=== PATIENT | female | born 1950 | race Caucasian/White ===

== ENCOUNTER 2017-03-12 10:54 | Observation (INO) | payer MEDICARE, MEDICAID ==
[~2017-03-12] VITALS: Ht 167.6 cm; Wt 71.3 kg
[~2017-03-12 10:54] MED LIST: ALBUTEROL 117 GM/INH IN; ALBUTEROL2 PUFFS/17 IN; AMLO5TAB PO; ATORVASTATIN CA20 M1 PO; AUGMENTIN 875-1 EACH PO; BIAXIN500 MG PO; CLARITIN10 MG PO; CLONAZEPAM0.5 M1 PO; CYMBALTA60 MG PO; DALIRESP500 MCG PO; DULERA1 AR1 IH; DULOXETINE 30MG30 MG PO; DUONEB 3 MG/3 ML3 ML IH; FUROSEMIDE 20MG20 MG PO; HYDROCODONE 7.51 TAB PO; HYDROCODONE1 TABLET PO; KLOR-CON M2020 ME1 PO; LEVAQUIN500 MG PO; LISINOPRIL 20MG20 MG PO; LOSARTAN POTASS50 MG PO; MEDROL 4MG. DOSE4 MG PO; NEURONTIN 100100 MG PO; NITROGLYCERIN0.4 MG SL; NOMEDS *; OMNICEF 300 MG300 MG PO; PREDNICOT20 MG PO; PREDNISONE 20MG20 MG PO; PROAIR HFA0.09 MG/AC IH; PROAIR HFA0.09 MG/AC INH; PROTONIX 40MG T40 MG PO; PROVENTIL0.09 MG/A1 IH; ROBITUSSIN DM240 ML PO; SERTRALINE 100100 MG PO; SIMVASTATIN20 MG PO; SINGULAIR10 MG PO; SPIRIVA HA1 PUFF/INH IH; SPIRIVA18 MCG IH; TEMAZEPAM15 MG PO; THEOPHYLLINE A300 MG PO; TRADJENTA5 MG PO; VISTARIL25 MG PO; ZITHROMAX Z PA250 MG PO
[2017-03-12 10:57] VITALS: BP 172/72
--- NOTE | 2017-03-12 11:07 | Emergency Room Report ---
History of Present Illness Time Seen by [id number] Presenting Problem in Triage Pt arrived:Wheelchair Presenting Problem:PT C/O INCREASED SOA THAT STARTED THIS MORNING. ALSO C/O OF SOME CHEST PAIN THAT HAS BEEN COMING AND GOING. 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 N Clinical Suspician of Infection? N Mental Status: 1 - Regular (Normal Baseline) Sepsis Risk:Severe Sepsis Risk Have you (or family members/close friends) recently traveled outside the [place]? N If Yes, where/when: Have you had exposure to infectious disease within the past month? N TB? Other? Specify: Patient with COPD, oxygen dependent, has been wheezing the last few days, worse this morning. Arrives wheezing and tachypneic. No fever or sputum, no calf pain. Has chest pain when wheezing. Seen in ED two days ago with similar complaints, was sent home with Rx for an HFA, which she is using. She states she is not currently on antibiotics but was on Cefdinir several months ago. She is diabetic , type two. She has been on dexamethasone since February 11, 2017. ALLERGIES Coded Allergies: No Known Allergies (10/01/16) Home Medications Active Scripts Albuterol/Ipratropiu (Duoneb) 3 ML IH Q4HP #30 VIAL Prov: 04/30/11 Tiotropium Henderson (Spiriva) 18 MCG IH DAILY #30 CAP Ref 3 Prov: 06/29/16 Reported Medications Linagliptin (Tradjenta) 5 MG PO DAILY #90 Furosemide (Furosemide) 20 MG PO DAILY DULOXETINE HCL (Cymbalta 60MG) 60 MG PO DAILY Losartan Potassium (Losartan 50MG) 50 MG PO DAILY #90 TAB Sertraline Hydrochloride (Sertraline 100MG) 100 MG PO DAILY Roflumilast (Daliresp) 500 MCG PO DAILY Pantoprazole Sodium (Protonix 40MG TAB) 40 MG PO BID MOMETASONE/FORMOTEROL (Dulera 200 Mcg/5 Mcg Inhaler) 2 PUFFS IH BID #13 BUDESONIDE/FORMOTEROL FUMARATE (Symbicort 160-4.5 Mcg Inhaler) 1 PUFF IH BID #10 Olanzapine (Olanzapine 5MG Tab) 5 MG PO QHS Dexamethasone 4 MG FT DAILY #3 Amitriptyline Hcl (Amitriptyline) 50 MG PO QHS History Medical History General CAD? No Angina: No HI: No Hypertension? Yes Hyperlipidemia? No CHF? No DVT? No PE? No COPD? Yes Asthma? Yes Anemia? No GERD? No Gastric ulcers? Yes GI Bleed? No Hernia? No Thyroid Problems? No Hypothyroidism? No CVA? No Seizures? No Diabetes? Yes Insulin Dependent: No Insulin Pump: No Home FSBS? No Renal Insuffiency? No End Stage Renal Disease? No UTI? No Stones? No GB Disease: No Nephritic Syndrome? No Asplenia? No Hepatitis? No Sickle Cell Disease? No Arthritis? Yes Migraines? No Cataracts? No Glaucoma? No MRSA? No HIV? 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 No Depression? No Cancer? Yes Site: lung More? 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 Immunization Hx DT/Tetanus Unknown Flu REFUSES Pneumonia Refuses Surgical Hx Previous Surgery?Y Hysterect GALL BLADDER Family History Family Hx Diabetes Yes CAD Yes Hypertension Yes Hyperlipidemia Yes Cancer Yes TB No Social History Smoking Hx Smoker: Former Smoker Tobacco: No Packs/day 2 1/2 - 3 Packs Alcohol Alcohol: No Review of Systems All Other Systems Reviewed and Negative Respiratory see HPI, wheezing Physical Exam Vital Signs Vital Signs Date Time Temp Pulse Resp B/P Pulse O2 O2 Flow FiO2 Ox Delivery Rate 03/12 1150 99 26 140/78 95 3 03/12 1115 3 03/12 1115 3 03/12 1115 96 OXYGEN 3 03/12 1115 96 OXYGEN 3 03/12 1057 98.3 120 30 172/72 88 General Appearance normal appearance, WD/WN, mild distress Eye Exam - bilateral eye normal exam, bilateral eye PERRL, bilateral eye EOMI Neck normal inspection, non-tender, supple, full range of motion Respiratory Status Yes: respiratory distress, trachea midline, chest symmetrical, non tender chest, use of accessory muscles, non productive cough. No: tender on palpation, pain on inspiration, pain on expiration, productive cough. Lung Sounds bilateral: decreased breath sounds, wheezing. Cardiovascular normal exam, regular rate/rhythm (tachycardia: res distress/neb), no peripheral edema, no gallop, no JVD, no murmur, no rub, normal peripheral pulses Peripheral Pulses Pulses normal Yes Gastrointestinal normal bowel sounds, normal exam, non tender, soft, no organomegaly, no pulsatile mass, no guarding, no rebound Extremities non-tender, normal range of motion, normal inspection, no calf tenderness, no pedal edema Strength 5 Upper Ext (L), 5 Upper Ext (R), 5 Lower Ext (L), 5 Lower Ext (R) Neurologic alert, normal exam, no motor/sensory deficits, oriented x 3 (speech clear) Glascow Coma Scale Glascow Coma Scale Response Value EYE response: 4 Spontaneously 4 MOTOR response: 6 OBEYS 6 VERBAL response: 5 Oriented & Converses 5 Total 15 Skin intact, warm/dry, pallor Medical Decision Making LABS/Meds/Orders Pt receiving controlled substance in ED? No Results/Orders Laboratory Tests 03/12/17 1150: ABG pH 7.40, ABG pCO2 (Temp Corrct 41.6, ABG pO2 (Temp Correct 94.0, ABG HCO3 25.0, ABG Total CO2 26.3, ABG O2 Sat (Calculated) 96.4, ABG Base Excess 0.2, Ernst Test ACCEPTABLE, Blood Gas Comments RIGHT RADIAL 03/12/17 1105: Lactic Acid 3.4 H 03/12/17 1105: Sodium 141, Potassium 3.8, Chloride 104, Carbon Dioxide 29, BUN 23 H, Creatinine 0.9, Estimated Creat Clear 73, Estimated GFR (MDRD) 62, Glucose 217 H, Calcium 9.5, Total Bilirubin 0.3, AST 10 L, ALT 19, Alkaline Phosphatase 90, Creatine Kinase 31, CK-MB (CK-2) Rel Index 2.3, CK and CKMB Interp 0.7, Troponin I < 0.02, Total Protein 7.8, Albumin 3.3 L, Globulin 4.5 H, Albumin/Globulin Ratio 0.7 L, WBC 10.2, RBC 4.47, Hgb 12.2, Hct 39.1, MCV 87.4, RDW 15.6, Plt Count 233, MPV 7.9, Gran % 82.2 H, Gran # 8.4 H, Lymphocytes % 10.8, Monocytes % 3.7, Eosinophils % 2.9, Basophils % 0.4, Lymphocytes # 1.1, Monocytes # 0.4, Eosinophils # 0.3, Basophils # 0.0, PUBS MCHC 31.1 L, MCH 27.2 Current Medication Orders Sig/Lucrecia Start time Last Medication Dose Route Stop Time Status Admin Ceftriaxone Sodium 1 GM ONCE ONE 03/12 1245 AC Sodium Chloride 50 ML IV 03/12 1314 Methylprednisolone 125 MG ONCE ONE 03/12 1115 DC 03/12 Sodium Succinate IV 03/12 1116 1111 Albuterol/Ipratropium 0 .STK-MED ONE 03/12 1102 DC INH Methylprednisolone 0 .STK-MED ONE 03/12 1101 DC Sodium Succinate .ROUTE Albuterol/Ipratropium 3 ML ONCE ONE 03/12 1100 DC 03/12 INH 03/12 1101 1115 Sodium Chloride 10 ML PRN PRN 03/12 1100 AC IV 03/13 1100 Orders Procedure Date/time Status RT Pulse Oximetry, Provide 03/12 1207 Active RT O2 Installation/Change Set 03/12 1207 Active RT O2 Therapy, Monitor/[place] 03/12 1207 Active RT Aerosol Treatment, Provide 03/12 1207 Active RT Aerosol Treatment, Provide 03/12 1207 Active ARTERIAL BLOOD GAS REQUEST 03/12 1146 Active LACTIC ACID FOLLOW UP 03/12 1137 Active ELECTROCARDIOGRAM REQUEST 03/12 1101 Active RT REQUEST DUONEB 03/12 1101 Active IV SALINE LOCK 03/12 1101 Active CULTURE, BLOOD 03/12 1101 Active LACTIC ACID 03/12 1101 Complete CBC WITH AUTO DIFF 03/12 1101 Complete CARDIAC ENZYMES 03/12 1101 Complete CHEM 12 PROFILE 03/12 1101 Complete 12 [facility] 03/12 1100 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 of ischemic chgs, no ectopy, normal QRS, normal VA , normal EKG (Stach 125 on neb) Consult MD Physician Consult Time Called 1225 Reason Pt. Condition Progress ED Progress Notes 1 Date 03/12/17 Time 1118 Comment Less tachypneic s/p nebs, no longer in respiratory distress, sats are 96 per cent on oxygen 2 LPM NC. ED Progress Notes 2 Date 03/12/17 Time 1144 Comment wheezing. ED Progress Notes 3 Date 03/12/17 Time 1239 Comment Persistent wheezing; has failed outpatient therapy and is steroid dependent, oxygen dependent, on multiple inhalers, with second ED visit in two days. Admit to Dr. Zapata; rocephin initiated prior to transfer to floor. Departure Departure Time of Disposition 1237 Disposition Still a Patient Clinical Impression Primary Impression: COPD with exacerbation Condition STABLE Referrals Antione Zapata MD (PCP) ED Critical Care Critical Care Yes Time spent < 30 min Vital system(s) involved: Circulatory Failure (resp distress) I was present at bedside for Coordinating pt's care, Interpreting EKGs/Strips , During my initial exam, Reviewing lab results, Reviewing old records, Discussing pt condition, For re-examinations, Examining radiographs at 1240
[2017-03-12 11:18] LABS: HEMOGLOBIN 12.2 g/dL (12.2-16.2); LYMPH # 1.1 K/mm3 (0.7-4.5); LYMPH % 10.8 % (10-50.0)
--- OUTSIDE RECORDS SUMMARY | 2017-03-12 11:38 | External Medical Summary Rpt ---
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 1 MG Ac /0 ti .4 ve ML SY RI NG E KL 00 01 2 No OR 24 -3 -C 50 0- Lo ON 05 20 ng 80 13 er M2 1 0 Ac TA ti BL ve ET SE 59 01 2 No RT 76 -3 RA 24 0- Lo LI 91 20 ng NE 00 13 er 3 HC Ac L ti 10 ve 0 MG TA BL ET Th 00 01 2 No eo 90 -3 ph 41 0- Lo yl 61 20 ng li 26 13 er ne 1 Ac Cr ti ve 30 0M G Ta bl et MA 00 01 2 No PA 90 -3 P 41 0- Lo 32 98 20 ng 5 26 13 er MG 1 Ac TA ti BL ve ET IP 00 09 10 2 27 23 CV 58 SC Ac RA 37 -3 -0 0. S 65 [place] ti T- 86 0- 6- 00 PH 23 CK ve AL 98 20 20 0 AR BU 85 11 11 MA BR T 8 CY IA 0. # N 5- 3( 05 2. 43 5) 7 MG /3 ML SE 31 09 10 6 30 30 CV 58 SC Ac RT 72 -3 -0 .0 S 65 [place] ti RA 20 0- 1- 00 PH 20 CK ve LI 21 20 20 AR NE 40 11 11 MA BR 5 CY IA HC # N L 10 05 0 43 MG 7 TA BL ET FL 00 09 10 5 16 30 CV 58 SC Ac UT 05 -3 -0 .0 S 65 [place] ti IC 43 0- 1- 00 PH 21 CK ve 27 20 20 AR ON 09 11 11 MA BR E 9 CY IA AL # N OP 05 50 43 7 MC G SP RA Y 59 09 10 3 8. 25 CV 58 SC Ac 31 -3 -0 50 S 65 [place] ti 00 0- 1- 0 PH 22 CK ve 57 20 20 AR 92 11 11 MA BR 0 CY IA # N 05 43 7 00 09 09 2 60 15 CV 58 SC Ac 40 -3 -3 .0 S 64 [place] ti 60 0- 0- 00 PH 43 CK ve 36 20 20 AR 00 11 11 MA BR 5 CY IA # N 05 43 7 IP 00 09 09 90 7 RI 90 WE Ac RA 37 -2 -2 .0 TE 09 HR ti T- 86 9- 9- 00 65 MA ve AL 98 20 20 AI N BU 85 11 11 D II T 8 PH I 0. AR WI 5- MA LL 3( CY IA 2. M 5) 03 E 93 MG 8 /3 # 03 ML 93 AL 00 09 09 22 13 RI 90 WE Ac ED 59 -2 -2 .0 TE 09 HR ti NI 15 9- 9- 00 66 MA ve SO 44 20 20 AI N NE 30 11 11 D II 1 PH I 20 AR WI MA LL MG CY IA M TA 03 E BL 93 ET 8 # 03 93 SP 00 08 09 0 30 30 UT 15 Ac IR 59 -2 -0 .0 LG 58 KE ti IV 70 9- 1- 00 RE 81 OH ve A 07 20 20 EN 5 E 18 54 11 11 S JR 1 #4 MC 28 WI G 4 LL CP # IA -H 42 M AN 84 F DI [place] LE R 00 08 09 0 30 5 UT 15 Ac 59 -2 -0 .0 LG 58 KE ti 10 9- 1- 00 RE 81 OH ve 34 20 20 EN 6 E 90 11 11 S JR 5 #4 28 WI 4 LL # IA 42 M 84 F CE 00 08 09 0 7. 3 UT 15 Ac FD 78 -2 -0 00 LG 58 KE ti IN 12 9- 1- 0 RE 81 OH ve IR 17 20 20 EN 7 E 66 11 11 S JR 30 0 #4 0 28 WI MG 4 LL # IA CA 42 M PS 84 F UL E 00 08 09 0 10 10 WA 15 MC Ac 14 -2 -0 .0 LG 58 KE ti 31 9- 1- 00 RE 82 OH ve 47 20 20 EN 6 E 70 11 11 S JR 5 #4 28 WI 4 LL # IA 42 M 84 F 59 07 07 2 8. 25 WA 15 SC Ac 31 -0 -0 50 LG 48 [place] ti 00 8- 8- 0 RE 43 CK ve 57 20 20 EN 7 92 11 11 S BR 0 #4 IA 28 N 4 # 42 84 SE 59 07 07 6 30 30 UT 15 SC Ac RT 76 -0 -0 .0 LG 48 [place] ti RA 24 8- 8- 00 RE 43 CK ve LI 91 20 20 EN 8 NE 00 11 11 S BR 5 #4 IA HC 28 N L 4 10 # 0 42 MG 84 TA BL ET 00 06 06 0 30 30 UT 15 AN Ac 00 -2 -2 .0 LG 45 JA ti 60 3- 4- 00 RE 94 K ve 11 20 20 EN 3 AH 73 11 11 S MA 1 #4 D 28 4 # 42 84 SI 68 06 06 0 30 30 UT 15 AN Ac MV 18 -2 -2 .0 LG 45 JA ti 00 3- 4- 00 RE 94 K ve TA 47 20 20 EN 2 AH TI 90 11 11 S MA N 3 #4 D 20 28 4 MG # 42 TA 84 BL ET 00 06 06 0 27 10 UT 15 AN Ac 14 -2 -2 .0 LG 45 JA ti 31 3- 4- 00 RE 94 K ve 47 20 20 EN 1 AH 31 11 11 S MA 0 #4 D 28 4 # 42 84 LI 68 06 06 0 30 30 UT 15 AN Ac SI 18 -2 -2 .0 LG 45 JA ti NO 00 3- 4- 00 RE 94 K ve AL 51 20 20 EN 0 AH IL 50 11 11 S MA 3 #4 D 20 28 4 MG # 42 TA 84 BL ET AM 68 06 06 0 30 30 UT 15 AN Ac LO 18 -2 -2 .0 LG 45 JA ti DI 00 3- 4- 00 RE 93 K ve PI 75 20 20 EN 9 AH NE 10 11 11 S MA 3 #4 D BE 28 SY 4 LA # TE 42 5 84 MG TA B SE 59 01 05 6 30 30 WA 15 SC Ac RT 76 -2 -3 .0 LG 13 [place] ti RA 24 4- 0- 00 RE 72 CK ve LI 91 20 20 EN 2 NE 00 11 11 S BR 5 #4 IA HC 28 N L 4 10 # 0 42 MG 84 TA BL ET FL 60 01 05 2 16 30 WA 15 SC Ac UT 50 -2 -3 .0 LG 13 [place] ti IC 50 4- 0- 00 RE 72 CK ve 82 20 20 EN 3 ON 90 11 11 S BR E 1 #4 IA AL 28 N OP 4 # 50 42 84 MC G SP RA Y 59 03 05 2 8. 25 WA 15 SC Ac 31 -1 -3 50 LG 23 [place] ti 00 0- 0- 0 RE 83 CK ve 57 20 20 EN 5 92 11 11 S BR 0 #4 IA 28 N 4 # 42 84 00 01 05 5 45 30 WA 15 SC Ac 59 -2 -0 .0 LG 13 [place] ti 10 4- 5- 00 RE 76 CK ve 34 20 20 EN 9 90 11 11 S BR 5 #4 IA 28 N 4 # 42 84 SE 59 01 05 6 30 30 WA 15 SC Ac RT 76 -2 -0 .0 LG 13 [place] ti RA 24 4- 3- 00 RE 72 CK ve LI 91 20 20 EN 2 NE 00 11 11 S BR 5 #4 IA HC 28 N L 4 10 # 0 42 MG 84 TA BL ET 59 03 05 2 8. 25 WA 15 SC Ac 31 -1 -0 50 LG 23 [place] ti 00 0- 1- 0 RE 83 CK ve 57 20 20 EN 5 92 11 11 S BR 0 #4 IA 28 N 4 # 42 84 SE 59 01 04 6 30 30 WA 15 SC Ac RT 76 -2 -0 .0 LG 13 [place] ti RA 24 4- 6- 00 RE 72 CK ve LI 91 20 20 EN 2 NE 00 11 11 S BR 5 #4 IA HC 28 N L 4 10 # 0 42 MG 84 TA BL ET 00 01 04 5 45 30 WA 15 SC Ac 59 -2 -0 .0 LG 13 [place] ti 10 4- 6- 00 RE 76 CK ve 34 20 20 EN 9 90 11 11 S BR 5 #4 IA 28 N 4 # 42 84 AL 50 04 04 0 24 8 WA 15 TH Ac OM 38 -0 -0 0. LG 29 OR ti ET 30 6- 6- 00 RE 65 NT ve [facility] 80 20 20 0 EN 7 ON ZI 41 11 11 S NE 6 #4 SH -C 28 EL OD 4 BY EI # NE 42 84 SY RU P 00 03 03 0 15 5 WA 15 ZI Ac 14 -3 -3 .0 LG 28 EG ti 31 1- 1- 00 RE 41 LE ve 47 20 20 EN 6 R 70 11 11 S KE 5 #4 28 N 4 M # 42 84 AV 00 03 03 0 10 10 WA 15 ZI Ac EL 08 -3 -3 .0 LG 28 EG ti OX 51 1- 1- 00 RE 41 LE ve 73 20 20 EN 8 R 40 30 11 11 S KE 0 1 #4 MG 28 N 4 M TA # BL 42 ET 84 00 03 03 0 15 5 WA 15 ZI Ac 59 -3 -3 .0 LG 28 EG ti 10 1- 1- 00 RE 41 LE ve 34 20 20 EN 9 R 90 11 11 S KE 5 #4 28 N 4 M # 42 84 59 03 03 2 8. 25 WA 15 SC Ac 31 -1 -1 50 LG 23 [place] ti 00 0- 0- 0 RE 83 CK ve 57 20 20 EN 5 92 11 11 S BR 0 #4 IA 28 N 4 # 42 84 IP 00 03 03 3 54 30 WA 15 SC Ac RA 09 -0 -0 0. LG 23 [place] ti T- 36 8- 8- 00 RE 52 CK ve AL 72 20 20 0 EN 5 BU 37 11 11 S BR T 3 #4 IA 0. 28 N 5- 4 3( # 2. 42 5) 84 MG /3 ML 00 03 03 3 30 30 WA 15 SC Ac 37 -0 -0 0. LG 23 [place] ti 86 8- 8- 00 RE 52 CK ve 99 20 20 0 EN 4 05 11 11 S BR 2 #4 IA 28 N 4 # 42 84 00 01 02 5 45 30 WA 15 SC Ac 59 -2 -2 .0 LG 13 [place] ti 10 4- 4- 00 RE 76 CK ve 34 20 20 EN 9 90 11 11 S BR 5 #4 IA 28 N 4 # 42 84 SE 59 01 02 6 30 30 WA 15 SC Ac RT 76 -2 -2 .0 LG 13 [place] ti RA 24 4- 2- 00 RE 72 CK ve LI 91 20 20 EN 2 NE 00 11 11 S BR 5 #4 IA HC 28 N L 4 10 # 0 42 MG 84 TA BL ET FL 60 01 02 2 16 30 WA 15 SC Ac UT 50 -2 -2 .0 LG 13 [place] ti IC 50 4- 2- 00 RE 72 CK ve 82 20 20 EN 3 ON 90 11 11 S BR E 1 #4 IA AL 28 N OP 4 # 50 42 84 MC G SP RA Y 59 06 02 4 8. 15 WA 14 NC Ac 31 -1 -2 50 LG 87 [place] ti 00 8- 2- 0 RE 17 CK ve 57 20 20 EN 8 92 10 11 S BR 0 #4 IA 28 N 4 # 42 84 SE 59 01 01 6 30 30 WA 15 NC Ac RT 76 -2 -2 .0 LG 13 [place] ti RA 24 4- 4- 00 RE 72 CK ve LI 91 20 20 EN 2 NE 00 11 11 S BR 5 #4 IA HC 28 N L 4 10 # 0 42 MG 84 TA BL ET FL 60 01 01 2 16 30 WA 15 NC Ac UT 50 -2 -2 .0 LG 13 [place] ti IC 50 4- 4- 00 RE 72 CK ve 82 20 20 EN 3 ON 90 11 11 S BR E 1 #4 IA AL 28 N OP 4 # 50 42 84 MC G SP RA Y AL 50 01 01 0 30 10 WA 15 NC Ac OM 38 -2 -2 0. LG 13 [place] ti ET 30 4- 4- 00 RE 77 CK ve [place] 80 20 20 0 EN 0 ZI 41 11 11 S BR NE 6 #4 IA -C 28 N OD 4 EI # NE 42 84 SY RU P AV 00 01 01 0 4. 4 WA 15 [facility] EL 08 -1 -1 00 LG 12 AB ti OX 51 8- 8- 0 RE 56 HR ve 73 20 20 EN 8 A 40 30 11 11 S RU 0 1 #4 CH MG 28 I 4 TA # BL 42 ET 84 00 01 01 0 9. 8 WA 15 Ac 14 -1 -1 00 LG 12 AB ti 31 8- 8- 0 RE 56 HR ve 47 20 20 EN 6 A 31 11 11 S RU 0 #4 CH 28 I 4 # 42 84 AV 00 12 12 0 5. 5 WA 31 KU EL 08 -1 -1 00 LG 07 RA ti OX 51 2- 2- 0 RE 13 PA ve 73 20 20 EN 0 TI 40 30 10 10 S 0 1 #7 RA MG 34 JE 6 EV TA # BL 73 ET 46 ME 59 12 12 0 21 6 WA 31 KU TH 74 -1 -1 .0 LG 07 RA ti YL 60 2- 2- 00 RE 13 PA ve AL 00 20 20 EN 1 TI ED 10 10 10 S NI 3 #7 RA SO 34 JE LO 6 EV NE # 4 73 46 MG DO SE PK 00 09 11 1 45 11 WA 14 NC Ac 59 -1 -2 .0 LG 87 [place] ti 10 3- 2- 00 RE 17 CK ve 34 20 20 EN 7 90 10 10 S BR 5 #4 IA 28 N 4 # 42 84 59 06 11 4 8. 15 UT 14 SC Ac 31 -1 -2 50 LG 87 [place] ti 00 8- 2- 0 RE 17 CK ve 57 20 20 EN 8 92 10 10 S BR 0 #4 IA 28 N 4 # 42 84 00 11 11 0 20 5 UT 14 WO Ac 59 -1 -1 .0 LG 99 NG ti 10 0- 1- 00 RE 10 ve 34 20 20 EN 7 CH 90 10 10 S RI 5 #4 S 28 4 # 42 84 00 11 11 0 26 13 UT 14 WO Ac 14 -1 -1 .0 LG 99 NG ti 31 0- 1- 00 RE 10 ve 47 20 20 EN 8 CH 31 10 10 S RI 0 #4 S 28 4 # 42 84 AV 00 11 11 0 2. 2 UT 14 WO Ac EL 08 -1 -1 00 LG 99 NG ti OX 51 0- 1- 0 RE 10 ve 73 20 20 EN 9 CH 40 30 10 10 S RI 0 1 #4 S MG 28 4 TA # BL 42 ET 84 FL 00 11 11 0 16 30 UT 14 WO Ac UT 05 -1 -1 .0 LG 99 NG ti IC 43 0- 1- 00 RE 11 ve 27 20 20 EN 0 CH ON 09 10 10 S RI E 9 #4 S AL 28 OP 4 # 50 42 84 MC G SP RA Y 00 11 11 0 54 30 UT 14 WO Ac 18 -1 -1 0. LG 99 NG ti 57 0- 1- 00 RE 11 ve 32 20 20 0 EN 1 CH 23 10 10 S RI 0 #4 S 28 4 # 42 84 00 09 09 1 45 11 UT 14 SC Ac 59 -1 -1 .0 LG 87 [place] ti 10 3- 8- 00 RE 17 CK ve 34 20 20 EN 7 90 10 10 S BR 5 #4 IA 28 N 4 # 42 84 TH 50 06 09 5 30 30 UT 14 SC Ac EO 11 -1 -1 .0 LG 74 [place] ti PH 10 8- 2- 00 RE 25 CK ve YL 48 20 20 EN 6 LI 20 10 10 S BR NE 2 #4 IA 28 N ER 4 # 20 42 0 84 MG TA BL ET 59 06 09 4 8. 15 UT 14 SC Ac 31 -1 -1 50 LG 87 [place] ti 00 8- 2- 0 RE 17 CK ve 57 20 20 EN 8 92 10 10 S BR 0 #4 IA 28 N 4 # 42 84 59 06 08 5 8. 15 WA 14 SC Ac 31 -1 -2 50 LG 86 [place] ti 00 8- 4- 0 RE 62 CK ve 57 20 20 EN 92 10 10 S BR 0 #1 IA 14 N 95 # 11 49 5 AD 00 02 08 2 60 30 WA 14 SC Ac VA 17 -0 -2 .0 LG 86 [place] ti IR 30 1- 4- 00 RE 63 CK ve 69 20 20 EN 25 60 10 10 S BR 0- 0 #1 IA 50 14 N 95 DI # SK US 11 49 5 00 07 08 0 45 11 WA 14 SC Ac 59 -0 -1 .0 LG 82 [place] ti 10 8- 7- 00 RE 22 CK ve 34 20 20 EN 4 90 10 10 S BR 5 #4 IA 28 N 4 # 42 84 AD 00 02 07 5 60 30 WA 14 SC Ac VA 17 -0 -2 .0 LG 45 [place] ti IR 30 1- 4- 00 RE 35 CK ve 69 20 20 EN 2 25 60 10 10 S BR 0- 0 #4 IA 50 28 N 4 DI # SK 42 US 84 59 02 07 5 8. 30 WA 14 SC Ac 31 -0 -2 50 LG 45 [place] ti 00 1- 4- 0 RE 35 CK ve 57 20 20 EN 4 92 10 10 S BR 0 #4 IA 28 N 4 # 42 84 00 07 07 2 45 11 UT 14 SC Ac 59 -0 -0 .0 LG 25 [place] ti 10 8- 8- 00 RE 20 CK ve 34 20 20 EN 90 10 10 S BR 5 #1 IA 14 N 95 # 11 49 5 BU 00 07 07 2 20 3 WA 14 SC Ac TA 60 -0 -0 .0 LG 25 [place] ti LB 32 8- 8- 00 RE 24 CK ve -A 54 20 20 EN CE 42 10 10 S BR TA 8 #1 IA OH 14 N N- 95 CA # FF 11 50 49 -3 5 25 -4 0 TH 50 06 07 5 30 30 WA 14 SC Ac EO 11 -1 -0 .0 LG 74 [place] ti PH 10 8- 2- 00 RE 25 CK ve YL 48 20 20 EN 6 LI 20 10 10 S BR NE 2 #4 IA 28 N ER 4 # 20 42 0 84 MG TA BL ET AD 00 06 06 5 60 30 WA 14 SC Ac VA 17 -1 -1 .0 LG 71 [place] ti IR 30 8- 9- 00 RE 98 CK ve 69 20 20 EN 7 25 60 10 10 S BR 0- 0 #4 IA 50 28 N 4 DI # SK 42 US 84 53 06 06 0 12 12 UT 14 NC Ac 01 -1 -1 0. LG 71 [place] ti 40 8- 9- 00 RE 98 CK ve 54 20 20 0 EN 0 86 10 10 S BR 7 #4 IA 28 N 4 # 42 84 AL 00 06 06 5 30 25 UT 14 NC Ac BU 48 -1 -1 0. LG 71 [place] ti TE 79 8- 9- 00 RE 98 CK ve RO 50 20 20 0 EN 2 L 12 10 10 S BR ALEJANDRO 5 #4 IA L 28 N 2. 4 5 # MG 42 /3 84 ML SO LN 00 06 06 0 20 10 UT 14 NC Ac 14 -1 -1 .0 LG 71 [place] ti 31 8- 9- 00 RE 98 CK ve 47 20 20 EN 3 31 10 10 S BR 0 #4 IA 28 N 4 # 42 84 59 02 06 [address] Ac 31 -0 -1 50 LG 45 [place] ti 00 1- 6- 0 RE 35 CK ve 57 20 20 EN 4 92 10 10 S BR 0 #4 IA 28 N 4 # 42 84 TH 50 03 05 3 [address] Ac EO 11 -1 -2 .0 LG 54 [place] ti PH 10 7- 7- 00 RE 29 CK ve YL 48 20 20 EN 4 LI 20 10 10 S BR NE 2 #4 IA 28 N ER 4 # 20 42 0 84 MG TA BL ET BU 00 04 05 1 [address] Ac TA 60 -2 -2 .0 LG 67 [place] ti LB 32 7- 7- 00 RE 78 CK ve -A 54 20 20 EN 8 CE 42 10 10 S BR TA 8 #4 IA OH 28 N N- 4 CA # FF 42 84 50 -3 25 -4 0 00 12 05 2 [address] Ac 59 -1 -2 .0 LG 54 [place] ti 10 5- 2- 00 RE 37 CK ve 34 20 20 EN 6 90 09 10 S BR 5 #4 IA 28 N 4 # 42 84 59 02 05 5 8. [address] Ac 31 -0 -1 50 LG 45 [place] ti 00 1- 8- 0 RE 35 CK ve 57 20 20 EN 4 92 10 10 S BR 0 #4 IA 28 N 4 # 42 84 BU 00 04 04 0 20 3 WA 14 SC Ac TA 60 -1 -2 .0 LG 62 [place] ti LB 32 3- 7- 00 RE 01 CK ve -A 54 20 20 EN 5 CE 42 10 10 S BR TA 8 #4 IA OH 28 N N- 4 CA # FF 42 84 50 -3 25 -4 0 TH 50 03 04 3 60 30 WA 14 SC Ac EO 11 -1 -2 .0 LG 54 [place] ti PH 10 7- 7- 00 RE 29 CK ve YL 48 20 20 EN 4 LI 20 10 10 S BR NE 2 #4 IA 28 N ER 4 # 20 42 0 84 MG TA BL ET BU 00 04 04 0 20 3 WA 13 SC Ac TA 60 -1 -1 .0 LG 14 [place] ti LB 32 2- 2- 00 RE 92 CK ve -A 54 20 20 EN CE 42 10 10 S BR TA 8 #1 IA OH 14 N N- 95 CA # FF 11 50 49 -3 5 25 -4 0 AD 00 02 04 5 60 30 WA 14 SC Ac VA 17 -0 -0 .0 LG 45 [place] ti IR 30 1- 7- 00 RE 35 CK ve 69 20 20 EN 2 25 60 10 10 S BR 0- 0 #4 IA 50 28 N 4 DI # SK 42 US 84 59 02 04 5 8. 25 WA 14 SC Ac 31 -0 -0 50 LG 45 [place] ti 00 1- 7- 0 RE 35 CK ve 57 20 20 EN 4 92 10 10 S BR 0 #4 IA 28 N 4 # 42 84 ME 68 02 03 2 30 30 WA 14 SC Ac LO 18 -1 -2 .0 LG 49 [place] ti XI 00 0- 3- 00 RE 16 CK ve CA 50 20 20 EN 0 M 20 10 10 S BR 15 3 #4 IA 28 N MG 4 # TA 42 BL 84 ET 61 03 03 2 5. 25 WA 14 HO Ac 31 -1 -1 00 LG 54 LL ti 40 8- 8- 0 RE 49 AN ve 01 20 20 EN 2 D 80 10 10 S ED 5 #[address] 4 J # 42 84 TH 50 03 03 3 60 30 WA 14 SC Ac EO 11 -1 -1 .0 LG 54 [place] ti PH 10 7- 7- 00 RE 29 CK ve YL 48 20 20 EN 4 LI 20 10 10 S BR NE 2 #4 IA 28 N ER 4 # 20 42 0 84 MG TA BL ET 59 02 03 5 8. 30 UT 14 SC Ac 31 -0 -1 50 LG 45 [place] ti 00 1- 7- 0 RE 35 CK ve 57 20 20 EN 4 92 10 10 S BR 0 #4 IA 28 N 4 # 42 84 AD 00 09 03 2 60 30 UT 14 SC Ac VA 17 -0 -0 .0 LG 14 [place] ti IR 30 9- 3- 00 RE 27 CK ve 69 20 20 EN 1 25 60 09 10 S BR 0- 0 #4 IA 50 28 N 4 DI # SK 42 US 84 61 03 03 2 5. 32 UT 14 HO Ac 31 -0 -0 00 LG 51 LL ti 40 1- 1- 0 RE 03 AN ve 01 20 20 EN 6 D 80 10 10 S ED 5 #[address] 4 J # 42 84 00 03 03 1 3. 14 UT 14 HO Ac GA 06 -0 -0 00 LG 51 LL ti MO 54 1- 1- 0 RE 03 AN ve X 01 20 20 EN 8 D 0. 30 10 10 S ED 5% 3 #[address] EY 4 J E # DR 42 OP 84 S 00 02 02 00 3. 14 UT 14 HO Ac GA 06 -1 -2 00 LG 48 LL ti MO 54 5- 6- 0 RE 28 AN ve X 01 20 20 EN 1 D 0. 30 10 10 ED 5% 3 #[address] EY [address] OP S ME 68 02 02 00 30 30 UT 14 SC Ac LO 18 -1 -2 .0 LG 49 [place] ti XI 00 0- 6- 00 RE 16 CK ve CA 50 20 20 EN 0 M 20 10 10 BR 15 3 #4 IA 28 N MG 4 TA BL ET 00 12 02 02 45 30 UT 14 SC Ac 59 -1 -2 .0 LG 34 [place] ti 10 5- 6- 00 RE 49 CK ve 34 20 20 EN 9 90 09 10 BR 5 #4 IA 28 N 4 AD 00 02 02 00 60 30 UT 14 SC Ac VA 17 -0 -1 .0 LG 45 [place] ti IR 30 1- 1- 00 RE 35 CK ve 69 20 20 EN 2 25 60 10 10 BR 0- 0 #4 IA 50 28 N 4 DI US SE 59 01 02 01 15 30 UT 14 SC Ac RT 76 -1 -1 .0 LG 40 [place] ti RA 24 1- 1- 00 RE 01 CK ve LI 91 20 20 EN 5 NE 00 10 10 BR 5 #4 IA HC 28 N L 4 10 0 MG TA BL ET 59 02 02 00 8. 30 WA 14 SC Ac 31 -0 -1 50 LG 45 [place] ti 00 1- 1- 0 RE 35 CK ve 57 20 20 EN 4 92 10 10 BR 0 #4 IA 28 N 4 61 01 02 00 5. 31 UT 14 HO Ac 31 -2 -1 00 LG 44 LL ti 40 7- 1- 0 RE 00 AN ve 01 20 20 EN 4 D 80 10 10 ED 5 #[address] 4 J 00 01 02 00 3. 7 WA 14 HO Ac GA 06 -2 -1 00 LG 44 LL ti MO 54 7- 1- 0 RE 00 AN ve X 01 20 20 EN 6 D 0. 30 10 10 ED 5% 3 #[address] EY [address] OP S AD 00 10 01 01 60 30 UT 14 KA Ac VA 17 -1 -2 .0 LG 21 LF ti IR 30 3- 8- 00 RE 44 ve 69 20 20 EN 3 25 60 09 10 OH 0- 0 #4 NA 50 28 C 4 DI SK US SE 59 01 01 00 15 30 UT 14 SC Ac RT 76 -1 -2 .0 LG 40 [place] ti RA 24 1- 8- 00 RE 01 CK ve LI 91 20 20 EN 5 NE 00 10 10 BR 5 #4 IA HC 28 N L 4 10 0 MG TA BL ET 59 10 01 03 8. 16 UT 14 SC Ac 31 -2 -2 50 LG 23 [place] ti 00 0- 8- 0 RE 42 CK ve 57 20 20 EN 5 92 09 10 BR 0 #4 IA 28 N 4 00 12 01 01 45 30 UT 14 SC Ac 59 -1 -2 .0 LG 34 [place] ti 10 5- 8- 00 RE 49 CK ve 34 20 20 EN 9 90 09 10 BR 5 #4 IA 28 N 4 59 10 12 02 8. 16 UT 14 SC Ac 31 -2 -3 50 LG 23 [place] ti 00 0- 1- 0 RE 42 CK ve 57 20 20 EN 5 92 09 09 BR 0 #4 IA 28 N 4 00 12 12 00 45 30 UT 14 SC Ac 59 -1 -3 .0 LG 34 [place] ti 10 5- 1- 00 RE 49 CK ve 34 20 20 EN 9 90 09 09 BR 5 #4 IA 28 N 4 TH 50 10 12 01 60 30 UT 14 KA Ac EO 11 -1 -1 .0 LG 21 LF ti PH 10 3- 7- 00 RE 44 ve YL 48 20 20 EN 6 LI 20 09 09 OH NE 2 #4 NA 28 C ER 4 20 0 MG TA BL ET SE 59 10 12 01 15 30 WA 14 KA Ac RT 76 -1 -1 .0 LG 21 LF ti RA 24 3- 7- 00 RE 46 ve LI 91 20 20 EN 0 NE 00 09 09 OH 5 #4 NA HC 28 C L 4 10 0 MG TA BL ET XO 63 10 12 01 72 30 WA 14 KA Ac PE 40 -1 -1 .0 LG 21 LF ti NE 20 3- 7- 00 RE 44 ve X 51 20 20 EN 1 1. 32 09 09 OH 25 4 #4 NA 28 C MG 4 /3 ML SO JOANN TI ON 00 12 12 00 14 25 WA 14 SC Ac 59 -0 -1 .6 LG 32 [place] ti 70 6- 7- 99 RE 44 FE ve 01 20 20 EN 9 R 31 09 09 OH 4 #4 CH 28 AE 4 L G AV 00 12 12 00 7. 7 WA 14 SC Ac EL 08 -0 -1 00 LG 32 [place] ti OX 51 6- 7- 0 RE 44 FE ve 73 20 20 EN 7 R 40 30 09 09 OH 0 1 #4 CH MG 28 AE 4 L TA G BL ET 00 12 12 00 60 30 WA 14 SC Ac 18 -0 -1 .0 LG 32 [place] ti 24 6- 7- 00 RE 44 FE ve 03 20 20 EN 6 R 01 09 09 OH 0 #4 CH 28 AE 4 L G IP 00 12 12 00 30 30 WA 14 SC Ac RA 48 -0 -1 0. LG 32 [place] ti TR 79 6- 7- 00 RE 45 FE ve OP 80 20 20 0 EN 1 R IU 16 09 09 OH M 0 #4 CH BR 28 AE 4 L 0. G 02 % SO LN AL 00 12 12 00 36 30 WA 14 SC Ac BU 48 -0 -1 0. LG 32 [place] ti TE 79 6- 7- 00 RE 44 FE ve RO 50 20 20 0 EN 5 R L 16 09 09 OH ALEJANDRO 0 #4 CH L 28 AE 2. 4 L 5 G MG /3 [address] SO LN AL 00 12 12 00 30 12 WA 14 SC Ac ED 59 -0 -1 .0 LG 32 [place] ti NI 15 6- 7- 00 RE 45 FE ve SO 44 20 20 EN 0 R NE 20 09 09 OH 5 #4 CH 10 28 AE 4 L MG G TA BL ET NA 68 10 12 01 60 30 WA 14 KA Ac AL 46 -1 -1 .0 LG 21 LF ti OX 20 3- 7- 00 RE 44 ve EN 19 20 20 EN 4 00 09 09 OH 50 5 #4 NA 0 28 C MG 4 TA BL ET AL 00 10 12 01 12 3 WA 14 SC Ac OM 60 -2 -0 0. LG 23 [place] ti ET 31 0- 3- 00 RE 42 CK ve [place] 58 20 20 0 EN 8 ZI 85 09 09 BR NE 8 #4 IA 28 N VC 4 -C OD EI NE SY RU P 59 10 12 01 8. 16 WA 14 SC Ac 31 -2 -0 50 LG 23 [place] ti 00 0- 3- 0 RE 42 CK ve 57 20 20 EN 5 92 09 09 BR 0 #4 IA 28 N 4 AL 00 10 11 00 12 3 WA 14 KA Ac OM 60 -2 -0 0. LG 23 LF ti ET 31 0- 5- 00 RE 42 ve [place] 58 20 20 0 EN 8 ZI 85 09 09 OH NE 8 #4 NA 28 C VC 4 -C OD EI NE SY RU P 59 10 11 00 8. 16 WA 14 SC Ac 31 -2 -0 50 LG 23 [place] ti 00 0- 5- 0 RE 42 CK ve 57 20 20 EN 5 92 09 09 BR 0 #4 IA 28 N 4 AD 00 10 10 00 60 30 UT 14 KA Ac VA 17 -1 -2 .0 LG 21 LF ti IR 30 3- 2- 00 RE 44 ve 69 20 20 EN 3 25 60 09 09 OH 0- 0 #4 NA 50 28 C 4 DI SK US AV 00 10 10 00 3. 3 UT 14 KA Ac EL 08 -1 -2 00 LG 21 LF ti OX 51 3- 2- 0 RE 43 ve 73 20 20 EN 4 40 30 09 09 OH 0 1 #4 NA MG 28 C 4 TA BL ET XO 63 10 10 00 72 30 UT 14 KA Ac PE 40 -1 -2 .0 LG 21 LF ti NE 20 3- 2- 00 RE 44 ve X 51 20 20 EN 1 1. 32 09 09 OH 25 4 #4 NA 28 C MG 4 /3 ML SO JOANN TI ON AL 00 10 10 00 40 12 UT 14 KA Ac ED 59 -1 -2 .0 LG 21 LF ti NI 15 3- 2- 00 RE 45 ve SO 44 20 20 EN 3 NE 20 09 09 OH 5 #4 NA 10 28 C 4 MG TA BL ET SE 59 10 10 00 15 30 WA 14 KA Ac RT 76 -1 -2 .0 LG 21 LF ti RA 24 3- 2- 00 RE 46 ve LI 91 20 20 EN 0 NE 00 09 09 OH 5 #4 NA HC 28 C L 4 10 0 MG TA BL ET TH 50 10 10 00 60 30 WA 14 KA Ac EO 11 -1 -2 .0 LG 21 LF ti PH 10 3- 2- 00 RE 44 ve YL 48 20 20 EN 6 LI 20 09 09 OH NE 2 #4 NA 28 C ER 4 20 0 MG TA BL ET 00 10 10 00 30 7 WA 14 KA Ac 59 -1 -2 .0 LG 21 LF ti 10 3- 2- 00 RE 44 ve 34 20 20 EN 5 90 09 09 OH 5 #4 NA 28 C 4 NA 68 10 10 00 60 30 WA 14 KA Ac AL 46 -1 -2 .0 LG 21 LF ti OX 20 3- 2- 00 RE 44 ve EN 19 20 20 EN 4 00 09 09 OH 50 5 #4 NA 0 28 C MG 4 TA BL ET IP 00 10 10 00 30 30 WA 14 KA Ac RA 48 -1 -2 0. LG 21 LF ti TR 79 3- 2- 00 RE 43 ve OP 80 20 20 0 EN 9 IU 16 09 09 OH M 0 #4 NA BR 28 C 4 0. 02 % SO LN AL 00 09 09 00 12 3 WA 14 KA Ac OM 60 -0 -2 0. LG 14 LF ti ET 31 9- 4- 00 RE 27 ve [place] 58 20 20 0 EN 0 ZI 85 09 09 OH NE 8 #4 NA 28 C VC 4 -C OD EI NE SY RU P 59 09 09 00 8. 16 WA 14 KA Ac 31 -0 -2 50 LG 14 LF ti 00 9- 4- 0 RE 27 ve 57 20 20 EN 2 92 09 09 OH 0 #4 NA 28 C 4 SE 59 09 09 00 15 30 WA 14 KA Ac RT 76 -0 -2 .0 LG 14 LF ti RA 24 9- 4- 00 RE 27 ve LI 91 20 20 EN 4 NE 00 09 09 OH 5 #4 NA HC 28 C L 4 10 0 MG TA BL ET AD 00 09 09 00 60 30 WA 14 KA Ac VA 17 -0 -2 .0 LG 14 LF ti IR 30 9- 4- 00 RE 27 ve 69 20 20 EN 1 25 60 09 09 OH 0- 0 #4 NA 50 28 C 4 DI SK US NA 68 09 09 00 60 30 WA 14 KA Ac AL 46 -0 -2 .0 LG 14 LF ti OX 20 9- 4- 00 RE 27 ve EN 19 20 20 EN 3 00 09 09 OH 50 5 #4 NA 0 28 C MG 4 TA BL ET 00 09 09 00 30 7 WA 14 KA Ac 59 -0 -2 .0 LG 14 LF ti 10 9- 4- 00 RE 26 ve 34 20 20 EN 8 90 09 09 OH 5 #4 NA 28 C 4 AL 00 09 09 00 20 15 WA 14 KA Ac ED 59 -0 -2 .0 LG 14 LF ti NI 15 9- 4- 00 RE 26 ve SO 44 20 20 EN 7 NE 30 09 09 OH 5 #4 NA 20 28 C 4 MG TA BL ET AL 00 08 08 00 6. 25 CL 19 CA Ac OV 08 -0 -[address] ti EN 51 5- 7- 0 IC 55 IL ve TI 13 20 20 LO L 20 09 09 PH HF 1 AR JR A MA J 90 CY V MC G IN [place] LE R AL 00 08 08 00 30 30 CL 19 CA Ac AV 09 -2 -[address] ti 37 1- 7- 00 IC 71 IL ve TA 20 20 20 LO TI 29 09 09 PH N 8 AR JR SO MA J DI CY V UM 40 MG TA B 00 08 08 00 15 30 CL 19 CA Ac 37 -0 -[address] ti 84 5- 3- 00 IC 54 IL ve 18 20 20 LO 80 09 09 PH 1 AR JR MA J CY V NA 53 08 08 00 30 15 CL 19 CA Ac AL 74 -0 -[address] ti OX 60 5- 3- 00 IC 56 IL ve EN 19 20 20 LO 00 09 09 PH 50 1 AR JR 0 MA J MG CY V TA BL ET AD 00 06 07 01 60 32 RI 78 CA Ac VA 17 -2 -[address] ti IR 30 7- 0- 00 80 IL ve 69 20 20 AI LO 25 60 09 09 D 0- 0 PH JR 50 AR J M V DI #3 SK 93 US 8 AL 00 09 07 06 6. 25 RI 76 SC Ac OV 08 -1 -3 70 TE 48 [place] ti EN 51 9- 0- 0 64 FE ve TI 13 20 20 AI R L 20 08 09 D OH HF 1 PH CH A AR AE 90 M L #3 G MC 93 G 8 IN [place] LE R 00 06 07 00 30 5 RI 78 CA Ac 60 -2 -[address] ti 35 7- 6- 00 82 IL ve 46 20 20 AI LO 82 09 09 D 8 PH JR AR J M V #3 93 8 AD 00 06 07 00 60 32 RI 78 CA Ac VA 17 -2 -[address] ti IR 30 7- 6- 00 80 IL ve 69 20 20 AI LO 25 60 09 09 D 0- 0 PH JR 50 AR J M V DI #3 SK 93 US 8 59 06 07 00 8. 16 RI 78 CA Ac 31 -2 -[address] ti 00 7- 6- 0 83 IL ve 57 20 20 AI LO 92 09 09 D 0 PH JR AR J M V #3 93 8 ME 00 06 07 00 30 30 RI 78 CA Ac TF 09 -2 -[address] ti OR 31 7- 6- 00 81 IL ve OH 04 20 20 AI LO N 80 09 09 D HC 1 PH JR L AR J 50 M V 0 #3 MG 93 8 TA BL ET AL 00 09 07 05 6. 25 RI 76 SC Ac OV 08 -1 -0 70 TE 48 [place] ti EN 51 9- 2- 0 64 FE ve TI 13 20 20 AI R L 20 08 09 D OH HF 1 PH CH A AR AE 90 M L #3 G MC 93 G 8 IN [place] LE R AL 00 09 06 04 6. 25 RI 76 SC Ac OV 08 -1 -0 70 TE 48 [place] ti EN 51 9- 4- 0 64 FE ve TI 13 20 20 AI R L 20 08 09 D OH HF 1 PH CH A AR AE 90 M L #3 G MC 93 G 8 IN [place] LE R AD 00 07 06 04 60 30 RI 76 SC Ac VA 17 -0 -0 .0 TE 48 [place] ti IR 30 7- 4- 00 63 FE ve 69 20 20 AI R 25 60 08 09 D OH 0- 0 PH CH 50 AR AE M L DI #3 G SK 93 US 8 AD 00 07 05 03 60 30 RI 76 SC Ac VA 17 -0 -2 .0 TE 48 [place] ti IR 30 7- 1- 00 63 FE ve 69 20 20 AI R 25 60 08 09 D OH 0- 0 PH CH 50 AR AE M L DI #3 G SK 93 US 8 AL 00 09 05 03 6. 25 RI 76 SC Ac OV 08 -1 -2 70 TE 48 [place] ti EN 51 9- 1- 0 64 FE ve TI 13 20 20 AI R L 20 08 09 D OH HF 1 PH CH A AR AE 90 M L #3 G MC 93 G 8 IN [place] LE R ME 00 05 05 00 21 6 RI 78 MO Ac TH 60 -0 -2 .0 TE 34 SE ti YL 34 9- 1- 00 42 S ve AL [address] ED 31 09 09 D EP NI 5 PH HE SO AR N LO M A NE #3 4 93 8 MG DO SE PK AZ 59 05 05 00 6. 5 RI 78 MO Ac IT 76 -0 -2 00 TE 34 SE ti HR 23 9- 1- 0 43 S ve OM [address] YC 00 09 09 D EP IN 1 PH HE AR N 25 M A 0 #3 MG 93 8 TA BL ET GL 00 05 05 00 15 15 RI 78 MO Ac YB 09 -0 -2 .0 TE 34 SE ti UR 39 9- 1- 00 41 S ve ID [address] E 30 09 09 D EP 2. 1 PH HE 5 AR N MG M A #3 TA 93 BL 8 ET AD 00 07 04 02 60 30 RI 76 SC Ac VA 17 -0 -0 .0 TE 48 [place] ti IR 30 7- 9- 00 63 FE ve 69 20 20 AI R 25 60 08 09 D OH 0- 0 PH CH 50 AR AE M L DI #3 G SK 93 US 8 AL 00 09 04 02 6. 25 RI 76 SC Ac OV 08 -1 -0 70 TE 48 [place] ti EN 51 9- 9- 0 64 FE ve TI 13 20 20 AI R L 20 08 09 D OH HF 1 PH CH A AR AE 90 M L #3 G MC 93 G 8 IN [place] LE R 00 02 02 00 15 30 CL 18 CA Ac 37 -0 -[address] ti 84 7- 6- 00 IC 77 IL ve 18 20 20 LO 80 09 09 PH 1 AR JR MA J CY V AL 00 09 02 01 6. 25 RI 76 SC Ac OV 08 -1 -1 70 TE 48 [place] ti EN 51 9- 2- 0 64 FE ve TI 13 20 20 AI R L 20 08 09 D OH HF 1 PH CH A AR AE 90 M L #3 G MC 93 G 8 IN [place] LE R AD 00 07 02 01 60 30 RI 76 SC Ac VA 17 -0 -1 .0 TE 48 [place] ti IR 30 7- 2- 00 63 FE ve 69 20 20 AI R 25 60 08 09 D OH 0- 0 PH CH 50 AR AE M L DI #3 G SK 93 US 8 CL 00 02 02 00 20 10 RI 76 SO Ac AR 09 -0 -1 .0 TE 97 KA ti IT 37 6- 2- 00 74 N ve HR 15 20 20 AI BA OM 80 09 09 D BA YC 6 PH TU IN AR ND M E 50 #3 O 0 93 MG 8 TA BL ET LO 00 02 02 00 30 30 RI 76 SO Ac RA 78 -0 -1 .0 TE 97 KA ti TA 15 6- 2- 00 72 N ve DI 07 20 20 AI BA NE 70 09 09 D BA 1 PH TU 10 AR ND M E MG #3 O 93 TA 8 BL ET ME 00 02 02 00 21 6 RI 76 SO Ac TH 60 -0 -1 .0 TE 97 KA ti YL 34 6- 2- 00 76 N ve AL 59 20 20 AI BA ED 31 09 09 D BA NI 5 PH TU SO AR ND LO M E NE #3 O 4 93 8 MG DO SE PK AL 00 09 01 00 6. 25 RI 76 SC Ac OV 08 -1 -1 70 TE 48 [place] ti EN 51 9- 5- 0 64 FE ve TI 13 20 20 AI R L 20 08 09 D OH HF 1 PH CH A AR AE 90 M L #3 G MC 93 G 8 IN [place] LE R AD 00 07 01 00 60 30 RI 76 SC Ac VA 17 -0 -1 .0 TE 48 [place] ti IR 30 7- 5- 00 63 FE ve 69 20 20 AI R 25 60 08 09 D OH 0- 0 PH CH 50 AR AE M L DI #3 G SK 93 US 8 NI 00 11 12 00 10 5 RI 75 CA Ac TR 37 -1 -[address] ti OF 83 5- 4- 00 62 IL ve UR 42 20 20 AI LO AN 20 08 08 D TO 1 PH JR IN AR J M V MO #3 NO 93 -M 8 CR 10 0 MG 59 11 12 00 8. 22 RI 75 CA Ac 31 -1 -[address] ti 00 5- 4- 0 61 IL ve 57 20 20 AI LO 92 08 08 D 0 PH JR AR J M V #3 93 8 60 11 12 00 90 12 RI 75 CA Ac 25 -1 -[address] ti 80 5- 4- 00 67 IL ve 23 20 20 AI LO 91 08 08 D 6 PH JR AR J M V #3 93 8 AL 00 09 10 01 6. 25 CV 46 SC Ac OV 08 -1 -2 70 S 94 [place] ti EN 51 9- 3- 0 PH 78 FE ve TI 13 20 20 AR R L 20 08 08 MA OH HF 1 CY CH A AE 90 #5 L 43 G MC 7 G IN [place] LE R AD 00 07 10 02 60 30 CV 46 SC Ac VA 17 -0 -2 .0 S 25 [place] ti IR 30 7- 3- 00 PH 87 FE ve 69 20 20 AR R 25 60 08 08 MA OH 0- 0 CY CH 50 AE #5 L DI 43 G SK 7 US 00 10 10 00 20 4 CV 47 ME Ac 40 -1 -2 .0 S 18 TZ ti 60 2- 3- 00 PH 93 GE ve 35 20 20 AR R 70 08 08 MA ED [address] #5 L 43 7 AV 00 10 10 00 10 10 CV 47 ME Ac EL 08 -1 -2 .0 S 18 TZ ti OX 51 2- 3- 00 PH 92 GE ve 73 20 20 AR R 40 30 08 08 MA ED 0 [address] #5 L TA 43 BL 7 ET 49 09 09 00 25 25 CV 46 SC Ac 50 -1 -2 0. S 94 [place] ti 20 9- 6- 00 PH 77 FE ve 68 20 20 0 AR R 52 08 08 MA OH 6 CY CH AE #5 L 43 G 7 AL 00 09 09 00 63 18 CV 46 SC Ac ED 59 -1 -2 .0 S 94 [place] ti NI 15 9- 6- 00 PH 76 FE ve SO 44 20 20 AR R NE 20 08 08 MA OH 1 CY CH 10 AE #5 L MG 43 G 7 TA BL ET AV 00 09 09 00 7. 7 CV 46 SC Ac EL 08 -1 -2 00 S 94 [place] ti OX 51 9- 6- 0 PH 75 FE ve 73 20 20 AR R 40 30 08 08 MA OH 0 1 CY CH MG AE #5 L TA 43 G BL 7 ET AL 00 09 09 00 6. 25 CV 46 SC Ac OV 08 -1 -2 70 S 94 [place] ti EN 51 9- 6- 0 PH 78 FE ve TI 13 20 20 AR R L 20 08 08 MA OH HF 1 CY CH A AE 90 #5 L 43 G MC 7 G IN [place] LE R 17 07 09 03 17 20 CV 46 SC Ac 27 -0 -1 .0 S 25 [place] ti 00 7- 1- 00 PH 86 FE ve 72 20 20 AR R 10 08 08 MA OH 1 CY CH AE #5 L 43 G 7 17 07 08 02 17 20 CV 46 SC Ac 27 -0 -1 .0 S 25 [place] ti 00 7- 4- 00 PH 86 FE ve 72 20 20 AR R 10 08 08 MA OH 1 CY CH AE #5 L 43 G 7 NI 00 07 08 00 30 30 CV 46 SC Ac 07 -3 -1 .0 S 46 [place] ti PA 43 1- 4- 00 PH 70 FE ve N 07 20 20 AR R ER 49 08 08 MA OH 0 CY CH 50 AE 0 #5 L MG 43 G 7 TA BL ET TR 60 07 08 01 30 30 CV 46 SC Ac AZ 50 -0 -1 .0 S 25 [place] ti OD 52 7- 4- 00 PH 88 FE ve ON 65 20 20 AR R E 30 08 08 MA OH 50 1 CY CH AE MG #5 L 43 G TA 7 BL ET AD 00 07 08 01 60 30 CV 46 SC Ac VA 17 -0 -1 .0 S 25 [place] ti IR 30 7- 4- 00 PH 87 FE ve 69 20 20 AR R 25 60 08 08 MA OH 0- 0 CY CH 50 AE #5 L DI 43 G SK 7 US 17 07 08 01 17 20 CV 46 SC Ac 27 -0 -0 .0 S 25 [place] ti 00 7- 1- 00 PH 86 FE ve 72 20 20 AR R 10 08 08 MA OH 1 CY CH AE #5 L 43 G 7 17 07 07 00 17 20 CV 46 SC Ac 27 -0 -1 .0 S 25 [place] ti 00 7- 7- 00 PH 86 FE ve 72 20 20 AR R 10 08 08 MA OH 1 CY CH AE #5 L 43 G 7 TR 60 07 07 00 30 30 CV 46 SC Ac AZ 50 -0 -1 .0 S 25 [place] ti OD 52 7- 7- 00 PH 88 FE ve ON 65 20 20 AR R E 30 08 08 MA OH 50 1 CY CH AE MG #5 L 43 G TA 7 BL ET AD 00 07 07 00 60 30 CV 46 SC Ac VA 17 -0 -1 .0 S 25 [place] ti IR 30 7- 7- 00 PH 87 FE ve 69 20 20 AR R 25 60 08 08 MA OH 0- 0 CY CH 50 AE #5 L DI 43 G SK 7 US ME 00 07 07 00 21 6 CV 46 GA Ac TH 78 -0 -1 .0 S 20 IN ti YL 15 1- 7- 00 PH 27 EY ve AL 02 20 20 AR ED 20 08 08 MA OH NI 7 CY CH SO AE LO #5 L NE 43 S 4 7 MG DO SE PK PE 45 05 05 00 60 1 CV 45 SA Ac RM 80 -1 -2 .0 S 73 DE ti ET 20 2- 2- 00 PH 96 K ve HR 26 20 20 AR MO IN 93 08 08 MA [place] 7 CY ME 5% D #5 H CR 43 EA 7 M 50 05 05 00 15 5 CL 16 No Ac 11 -0 -0 .0 IN 99 t ti 10 2- 8- 00 IC 30 Av ve 30 20 20 ai 80 08 08 PH la 1 AR bl MA e CY PE 45 05 05 00 60 30 RI 73 No Ac RM 80 -0 -0 .0 TE 16 t ti ET 20 2- 8- 00 11 Av ve HR 26 20 20 AI ai IN 93 08 08 D la 7 PH bl 5% AR e M CR #3 EA 93 M 8 AD 00 04 04 00 60 30 CV 45 No Ac VA 17 -1 -2 .0 S 45 t ti IR 30 1- 4- 00 PH 67 Av ve 69 20 20 AR ai 25 60 08 08 MA la 0- 0 CY bl 50 e #5 DI 43 SK 7 US 17 04 04 00 17 20 CV 45 No Ac 27 -1 -2 .0 S 45 t ti 00 1- 4- 00 PH 68 Av ve 72 20 20 AR ai 10 08 08 MA la 1 CY bl e #5 43 7 AL 00 01 03 00 30 13 CV 44 No Ac ED 59 -2 -2 .0 S 69 t ti NI 15 8- 6- 00 PH 53 Av ve SO 44 20 20 AR ai NE 30 08 08 MA la 1 CY bl 20 e #5 MG 43 7 TA BL ET 00 02 03 00 60 3 CL 16 No Ac 47 -0 -2 .0 IN 39 t ti 21 4- 6- 00 IC 79 Av ve 62 20 20 ai 71 08 08 PH la 6 AR bl MA e CY 00 01 03 00 5. 5 CV 44 No Ac 04 -2 -2 00 S 69 t ti 51 8- 6- 0 PH 52 Av ve 52 20 20 AR ai 55 08 08 MA la 0 CY bl e #5 43 7 00 02 03 00 36 8 CL 16 No Ac 60 -0 -2 .0 IN 39 t ti 35 4- 6- 00 IC 81 Av ve 46 20 20 ai 72 08 08 PH la 1 AR bl MA e CY ME 59 02 03 00 21 6 CL 16 No Ac TH 74 -0 -2 .0 IN 39 t ti YL 60 4- 6- 00 IC 80 Av ve AL 00 20 20 ai ED 10 08 08 PH la NI 3 AR bl SO MA e LO CY NE 4 MG DO SE PK LY 00 11 03 01 60 30 CL 15 No Ac RI 07 -1 -2 .0 IN 89 t ti CA 11 4- 4- 00 IC 78 Av ve 01 20 20 ai 75 46 07 08 PH la 8 AR bl MG MA e CY CA PS UL E 00 01 03 00 9. 9 CL 16 No Ac 04 -0 -2 00 IN 19 t ti 51 3- 4- 0 IC 64 Av ve 52 20 20 ai 55 08 08 PH la 0 AR bl MA e CY 17 12 03 01 17 25 CL 16 No Ac 27 -0 -2 .0 IN 00 t ti 00 3- 4- 00 IC 61 Av ve 72 20 20 ai 10 07 08 PH la 1 AR bl MA e CY AD 00 11 03 01 60 30 CL 15 No Ac VA 17 -1 -2 .0 IN 89 t ti IR 30 4- 4- 00 IC 77 Av ve 69 20 20 ai 25 60 07 08 PH la 0- 0 AR bl 50 MA e CY DI SK US Vital Signs 09-08-2012 15:15 Name Value Interpretat Reference Comment ion Range Body 98.8 [degF] Temperature BP 86 mm[Hg] Diastolic BP Systolic 136 mm[Hg] Heart 91 /min Rate/Pulse Respiratory 20 /min Rate 09-08-2012 12:00 Name Value Interpretat Reference Comment ion Range O2% 96 % 09-07-2012 20:00 Name Value Interpretat Reference Comment ion Range O2% 100 % 09-07-2012 16:54 Name Value Interpretat Reference Comment ion Range Body 98.8 [degF] Temperature BP 75 mm[Hg] Diastolic BP Systolic 162 mm[Hg] Heart 95 /min Rate/Pulse Height 167.64 cm Respiratory 24 /min Rate Weight 171 [lb_av] Measured Weight 77.622 kg Measured 09-02-2012 10:15 Name Value Interpretat Reference Comment ion Range Body 98.3 [degF] Temperature BP 81 mm[Hg] Diastolic BP Systolic 139 mm[Hg] Heart 105 /min Rate/Pulse Respiratory 20 /min Rate 09-02-2012 08:00 Name Value Interpretat Reference Comment ion Range O2% 94 % 08-31-2012 16:00 Name Value Interpretat Reference Comment ion Range O2% 95 % 08-31-2012 11:53 Name Value Interpretat Reference Comment ion Range Body 98.5 [degF] Temperature BP 77 mm[Hg] Diastolic BP Systolic 133 mm[Hg] Height 152.40 cm Respiratory 24 /min Rate Weight 78.019 kg Measured Weight 172 [lb_av] Measured 08-31-2012 11:45 Name Value Interpretat Reference Comment ion Range Heart 95 /min Rate/Pulse Results Labs Lab Lab Date Result Refere Interp Status Commen Order Detail nces retati t Range on BASIC METABOLIC PANEL (09-08-2012 06:45) Glucose 107 74-106 complet 013 mg/dL ed Bld-mCn 06:45 c BUN 9 mg/dL 7-18 complet Bld-mCn 013 ed c 06:45 Creat 0.8 0.6-1.0 complet SerPl-m 013 mg/dL ed Cnc 06:45 ESTIMAT 88 50-200 complet ED 013 ML/MIN ed CREATIN 06:45 INE CLEARAN CE GFR 72 59- complet (ESTIMA 013 ML/MIN ed ELIS) 06:45 Sodium 143 136-145 complet SerPl-s 013 mmoL/L ed Cnc 06:45 Potassi 4.0 3.5-5.1 complet um 013 mmoL/L ed SerPl-s 06:45 Cnc Chlorid 106 98-107 complet e 013 mmoL/L ed SerPl-s 06:45 Cnc CO2 33 21.0-32 complet SerPl-s 013 mmoL/L .0 ed Cnc 06:45 Calcium 9.0 8.5-10. complet 013 mg/dL 1 ed SerPl-m 06:45 Cnc CBC with AUTO DIFF (09-08-2012 06:45) WBC # 02-07-2 7.3 4.8-10. complet Bld 013 K/MM3 8 ed Auto 06:45 RBC # 02-07-2 4.11 4.2-5.4 complet Bld 013 M/mm3 ed Auto 06:45 Hgb 02-07-2 11.7 12.2-16 complet Bld-mCn 013 g/dL .2 ed c 06:45 Hct Fr 07-2 34.9 % 37.0-47 complet Bld 013 .0 ed 06:45 MCV RBC -07-2 85.0 fl 82.2-97 complet 013 .8 ed 06:45 MCH RBC -07-2 28.4 pg 27-31.2 complet Qn 013 ed Auto 06:45 MEAN 07-2 33.4 31.8-35 complet CORPUSC 013 g/dl .4 ed ULAR 06:45 HGB CONC RDW RBC 07-2 13.8 % 11.5-17 complet Auto 013 .5 ed 06:45 Platele 02-07-2 158 142-424 complet t Bld 013 K/mm3 ed Ql 06:45 Manual MEAN 07-2 8.4 fl 7.4-10. complet PLATELE 013 4 ed T 06:45 VOLUME Granulo -07-2 69.2 % 37.0-80 complet cytes 013 .0 ed Fr Bld 06:45 Auto LYMPH % 02-07-2 21.6 % 10-50.0 complet 013 ed 06:45 Monocyt 02-07-2 5.0 % 1.7-9.3 complet es Fr 013 ed Bld 06:45 Auto Eosinop 02-07-2 4.0 % 0.1-12. complet hil Fr 013 0 ed Bld 06:45 Auto Basophi 02-07-2 0.2 % 0.1-2.0 complet ls Fr 013 ed Bld 06:45 Auto Granulo 02-07-2 5.0 1.8-7.8 complet cytes # 013 K/mm3 ed Bld 06:45 Auto Lymphoc 02-07-2 1.6 0.7-4.5 complet ytes Fr 013 K/mm3 ed Bld 06:45 Auto Monocyt 02-07-2 0.4 0.1-1.0 complet es # 013 K/mm3 ed Bld 06:45 Auto Eosinop -07-2 0.3 0.0-0.4 complet hil # 013 K/mm3 ed Bld 06:45 Auto Basophi 07-2 0.0 0-0.2 complet ls # 013 K/MM3 ed Bld 06:45 Auto CBC with AUTO DIFF (09-01-2012 06:38) WBC # -31-2 4.9 4.8-10. complet Bld 013 K/MM3 8 ed Auto 06:38 RBC # 31-2 4.14 4.2-5.4 complet Bld 013 M/mm3 ed Auto 06:38 Hgb 09-01-2 11.8 12.2-16 complet Bld-mCn 013 g/dL .2 ed c 06:38 Hct Fr 34.9 % 37.0-47 complet Bld 013 .0 ed 06:38 MCV RBC 84.4 fl 82.2-97 complet 013 .8 ed 06:38 MCH RBC 2 28.5 pg 27-31.2 complet Qn 013 ed Auto 06:38 MEAN 09-01-2 33.7 31.8-35 complet CORPUSC 013 g/dl .4 ed ULAR 06:38 HGB CONC RDW RBC 09-01-2 14.0 % 11.5-17 complet Auto 013 .5 ed 06:38 Platele 09-01-2 216 142-424 complet t Bld 013 K/mm3 ed Ql 06:38 Manual MEAN 2 8.4 fl 7.4-10. complet PLATELE 013 4 ed T 06:38 VOLUME Granulo 2 86.2 % 37.0-80 complet cytes 013 .0 ed Fr Bld 06:38 Auto LYMPH % 09-01-2 11.4 % 10-50.0 complet 013 ed 06:38 Monocyt 09-01-2 2.2 % 1.7-9.3 complet es Fr 013 ed Bld 06:38 Auto Eosinop 09-01-2 0.2 % 0.1-12. complet hil Fr 013 0 ed Bld 06:38 Auto Basophi 09-01-2 0.1 % 0.1-2.0 complet ls Fr 013 ed Bld 06:38 Auto Granulo 4.2 1.8-7.8 complet cytes # 013 K/mm3 ed Bld 06:38 Auto Lymphoc 0.6 0.7-4.5 complet ytes Fr 013 K/mm3 ed Bld 06:38 Auto Monocyt 0.1 0.1-1.0 complet es # 013 K/mm3 ed Bld 06:38 Auto Eosinop 0.0 0.0-0.4 complet hil # 013 K/mm3 ed Bld 06:38 Auto Basophi 0.0 0-0.2 complet ls # 013 K/MM3 ed Bld 06:38 Auto BASIC METABOLIC PANEL (08-31-2012 11:30) Glucose 94 74-106 complet 013 mg/dL ed Bld-mCn 11:30 c BUN 15 7-18 complet Bld-mCn 013 mg/dL ed c 11:30 Creat 0.9 0.6-1.0 complet SerPl-m 013 mg/dL ed Cnc 11:30 GFR 63 59- complet (ESTIMA 013 ML/MIN ed ELIS) 11:30 Sodium 142 136-145 complet SerPl-s 013 mmoL/L ed Cnc 11:30 Potassi 4.2 3.5-5.1 complet um 013 mmoL/L ed SerPl-s 11:30 Cnc Chlorid 102 98-107 complet e 013 mmoL/L ed SerPl-s 11:30 Cnc CO2 35 21.0-32 complet SerPl-s 013 mmoL/L .0 ed Cnc 11:30 Calcium 9.5 8.5-10. complet 013 mg/dL 1 ed SerPl-m 11:30 Cnc D Dimer PPP (08-31-2012 11:30) D Dimer Less 0-400 complet PPP 013 than ed 11:30 100 ng/mL CBC with AUTO DIFF (08-31-2012 11:30) WBC # 08-31- 5.7 4.8-10. complet Bld 013 K/MM3 8 ed Auto 11:30 RBC # 01-30-2 4.32 4.2-5.4 complet Bld 013 M/mm3 ed Auto 11:30 Hgb 08-31-2 12.3 12.2-16 complet Bld-mCn 013 g/dL .2 ed c 11:30 Hct Fr 37.1 % 37.0-47 complet Bld 013 .0 ed 11:30 MCV RBC 86.0 fl 82.2-97 complet 013 .8 ed 11:30 MCH RBC 28.4 pg 27-31.2 complet Qn 013 ed Auto 11:30 MEAN 33.1 31.8-35 complet CORPUSC 013 g/dl .4 ed ULAR 11:30 HGB CONC RDW RBC 14.0 % 11.5-17 complet Auto 013 .5 ed 11:30 Platele 214 142-424 complet t Bld 013 K/mm3 ed Ql 11:30 Manual MEAN 8.2 fl 7.4-10. complet PLATELE 013 4 ed T 11:30 VOLUME Granulo 08-31-2 60.9 % 37.0-80 complet cytes 013 .0 ed Fr Bld 11:30 Auto LYMPH % 08-31-2 23.8 % 10-50.0 complet 013 ed 11:30 Monocyt 08-31-2 5.6 % 1.7-9.3 complet es Fr 013 ed Bld 11:30 Auto Eosinop 08-31-2 9.2 % 0.1-12. complet hil Fr 013 0 ed Bld 11:30 Auto Basophi 08-31-2 0.5 % 0.1-2.0 complet ls Fr 013 ed Bld 11:30 Auto Granulo 30-2 3.5 1.8-7.8 complet cytes # 013 K/mm3 ed Bld 11:30 Auto Lymphoc 30-2 1.4 0.7-4.5 complet ytes Fr 013 K/mm3 ed Bld 11:30 Auto Monocyt 30-2 0.3 0.1-1.0 complet es # 013 K/mm3 ed Bld 11:30 Auto Eosinop 30-2 0.5 0.0-0.4 complet hil # 013 K/mm3 ed Bld 11:30 Auto Basophi 08-31-2 0.0 0-0.2 complet ls # 013 K/MM3 ed Bld 11:30 Auto MYCOPLASMA IGM (RAPID) (08-31-2012 11:30) MYCOPLA 08-31-2 NON-JADYN NONREAC complet SMA IGM 013 CTIVE TIVE ed 11:30 (RAPID) Procedures Procedure DOS Code Location Performer Comment PRTBLE E0431 PATIENT PATIENT GASEOUS 7 AIDS INC AIDS INC O2 SYS RENT; FLWMTR HUMIDFR&M ASK O2 CONC 1 E1390 PATIENT PATIENT DEL PORT 7 AIDS INC AIDS INC 85%/>02 CONC AT PRSC FLW RATE O2 CONC 1 E1390 PATIENT PATIENT DEL PORT 7 AIDS INC AIDS INC 85%/>02 CONC AT PRSC FLW RATE PRTBLE E0431 PATIENT PATIENT GASEOUS 7 AIDS INC AIDS INC O2 SYS RENT; FLWMTR HUMIDFR&M ASK COLLECTIO 61102 [place] [facility]OUS [facility] BLOOD INC INC VENIPUNCT URE PRESSURIZ 09264 [place] [facility] ED/NONPRE 7 [facility] SSURIZED INC INC INHALATIO N TREATMENT NONINVASI 23383 [place] [facility] VE 7 [facility] EAR/PULSE INC INC OXIMETRY SINGLE DETER BASIC 72113 [place] [facility] METABOLIC 7 [facility] PANEL INC INC CALCIUM TOTAL BLOOD 85167 [place] [facility] COUNT 7 [facility] COMPLETE INC INC AUTO&AUTO [facility]L [facility] G0378 [place] [facility] OBSERVATI 7 [facility] ON INC INC SERVICE PER HOUR BASIC 96684 [place] [facility] METABOLIC 7 [facility] PANEL INC INC CALCIUM TOTAL NONINVASI 06202 [place] VE 7 [facility] EAR/PULSE INC INC OXIMETRY SINGLE DETER THERAPEUT 16627 [place] [facility] IC 7 [facility] INJECTION INC INC IV PUSH EACH NEW DRUG PRESSURIZ 22602 [place] [facility] ED/NONPRE 7 [facility] SSURIZED INC INC INHALATIO N TREATMENT THER 27592 [place] YOU PROPH/DX 7 [facility] NJX IV INC INC PUSH SINGLE/1S T SBST/DRUG COLLECTIO 36965 [place] VENOUS 7 [facility] BLOOD INC INC VENIPUNCT URE PRESSURIZ 49209 [place] YOU ED/NONPRE 7 [facility] SSURIZED INC INC INHALATIO N TREATMENT NONINVASI 29060 [place] YOU VE 7 [facility] EAR/PULSE INC INC OXIMETRY SINGLE [facility] G0378 [place] YOU OBSERVATI 7 [facility] ON INC INC SERVICE PER HOUR BLOOD 02480 [place] YOU COUNT 7 [facility] COMPLETE INC INC AUTO&[place] [address] [place] YOU TROPONIN 7 [facility] QUANTITAT INC INC CARLOS PRESSURIZ 61766 [place] YOU ED/NONPRE 7 [facility] SSURIZED INC INC INHALATIO N TREATMENT BLOOD 84735 [place] YOU GASES ANY 7 [facility] INC INC COMBINATI ON PH PCO2 PO2 CO2 HCO3 CREATINE 12407 [place] YOU KINASE 7 [facility] TOTAL INC INC ECG 74604 [place] YOU ROUTINE 7 [facility] ECG INC INC W/LEAST 12 LDS TRCG ONLY W/O I&R COMPREHEN 28639 [place] YUO SIVE 7 [facility] METABOLIC INC INC PANEL CREATINE 58219 [place] YOU KINASE MB 7 [facility] FRACTION INC INC ONLY ECG 61423 [place] ADAMS ROUTINE 7 [facility] W/LEAST P 12 LDS I&R ONLY RADIOLOGI [address]1908 [place] [address] MEDICAL EXAMINATI IMAGING ON CHEST ASS SINGLE VIEW FRONTAL PRTBLE E0431 PATIENT PATIENT GASEOUS 7 AIDS INC AIDS INC O2 SYS RENT; FLWMTR HUMIDFR&M ASK O2 CONC 1 E1390 PATIENT PATIENT DEL PORT 7 AIDS INC AIDS INC 85%/>02 CONC AT PRS FLW RATE PHYS G0179 RODNEY ADAMS RE-CERT 7 [place] MCR-COVR INTERNAL [facility] SRVC RE-CERT [facility] 86656 RODNEY ADAMS DISCHARGE 7 [place] DAY INTERNAL MANAGEMEN MED T 30 MIN/< SBSQ [address] CARE/DAY INTERNAL 25 MED MINUTES SBSQ [id number] CARE/DAY INTERNAL 25 MED MINUTES ECG 62632 [place] DIAZ JR ROUTINE 7 [facility] W/LEAST P 12 LDS I&R ONLY ECG 51272 [place] REBELGEOVANNI ROUTINE 7 [facility] W/LEAST P 12 LDS I&R ONLY RADIOLOGI 39356 [place] C EXAM 7 MEDICAL CHEST 2 IMAGING VIEWS ASS FRONTAL&L ATERAL O2 CONC 1 E1390 PATIENT PATIENT DEL PORT 7 AIDS INC AIDS INC 85%/>02 CONC AT [facility] FLW RATE PRTBLE E0431 PATIENT PATIENT GASEOUS 7 AIDS INC AIDS INC O2 SYS RENT; FLWMTR HUMIDFR&M ASK COLLECTIO 27062 [facility] VENOUS 7 [place] BLOOD VENIPUNCT PHYSICIAN NAHID S PRTBLE E0431 PATIENT PATIENT GASEOUS 6 AIDS INC AIDS INC O2 SYS RENT; FLWMTR HUMIDFR&M ASK O2 CONC 1 E1390 PATIENT PATIENT DEL PORT 6 AIDS INC AIDS INC 85%/>02 CONC AT [facility] FLW RATE HOSPITAL G0378 [place] YOU OBSERVATI 6 [facility] ON INC INC SERVICE PER HOUR PRESSURIZ 56824 [place] YOU ED/NONPRE 6 [facility] SSURIZED INC INC INHALATIO N TREATMENT NONINVASI 12896 [place] YOU VE 6 [facility] EAR/PULSE INC INC OXIMETRY SINGLE DETER NONINVASI 45013 [place] YOU VE 6 [facility] EAR/PULSE INC INC OXIMETRY SINGLE DETER PRESSURIZ 95244 [place] YOU ED/NONPRE 6 [facility] SSURIZED INC INC INHALATIO N TREATMENT HOSPITAL G0378 [place] YOU OBSERVATI 6 [facility] ON INC INC SERVICE PER HOUR [facility]OSP[facility] G0378 [place] YOU OBSERVATI 6 [facility] ON INC INC SERVICE PER HOUR BASIC 61641 [place] YOU METABOLIC 6 [facility] PANEL INC INC CALCIUM TOTAL BLOOD 20655 [place] YOU COUNT 6 [facility] COMPLETE INC INC AUTO&AUTO DIFRNTL WBC NONINVASI 20341 [place] YOU VE 6 [facility] EAR/PULSE INC INC OXIMETRY SINGLE DETER PRESSURIZ 19502 [place] YOU ED/NONPRE 6 [facility] SSURIZED INC INC INHALATIO N TREATMENT COLLECTIO 55285 [place] YOU N VENOUS 6 [facility] BLOOD INC INC VENIPUNCT URE COMPREHEN 65298 [place] YOU SIVE 6 [facility] METABOLIC INC INC PANEL ECG 93340 [place] DIAZ JR ROUTINE 6 [facility] W/LEAST P 12 LDS I&R ONLY NATRIURET 55548 [place] YOU IC 6 [facility] PEPTIDE INC INC BLOOD 93647 [place] YOU GASES ANY 6 [facility] INC INC COMBINATI ON PH PCO2 PO2 CO2 HCO3 THERAPEUT 79579 [place] YOU IC 6 [facility] INJECTION [place] [address] [place] YOU INFUSION 6 [facility] THERAPY/P INC INC ROPHYLAXI S /DX 1ST TO 1 HR CREATINE 72355 [facility] [facility] KINASE 6 [facility] TOTAL INC INC CREATINE 50072 [facility] YOU KINASE MB 6 [facility] FRACTION INC INC ONLY ECG 69071 [facility] [facility] ROUTINE 6 [facility] ECG INC INC W/LEAST 12 LDS TRCG ONLY W/O I&[place] [address] [place] [facility] LACTATE 6 [facility] INC INC BLOOD 02972 [place] [facility] COUNT 6 [facility] COMPLETE INC INC AUTO&[place] [address] [place] [facility] TROPONIN 6 [facility] QUANTITAT INC INC [facility] G0378 [facility] [facility] OBSERVATI 6 [facility] ON INC INC SERVICE PER HOUR RADIOLOGI 05832 [facility] BERRIENChandra KRISTA C EXAM 6 MEDICAL CHEST 2 IMAGING VIEWS ASS FRONTAL&L ATERAL CULTURE 89492 [place] [facility] BACTERIAL 6 [facility] BLOOD INC INC AEROBIC W/ID ISOLATES BLOOD 72576 [place] YOU COUNT 6 [facility] COMPLETE INC INC AUTO&[place] [address] [place] [facility] LACTATE 6 [facility] INC INC THER 83512 [place] [facility] PROPH/DX 6 [facility] NJX IV INC INC PUSH SINGLE/1S T SBST/DRUG THERAPEUT 87608 [place] [facility] IC 6 [facility] INJECTION INC INC IV PUSH EACH NEW DRUG PRESSURIZ 80826 [place] [facility] ED/NONPRE 6 [facility] SSURIZED INC INC INHALATIO N TREATMENT COMPREHEN 24485 [place] [facility] SIVE 6 [facility] METABOLIC INC INC PANEL RADIOLOGI 12411 [facility] 6 MEDICAL EXAMINATI IMAGING ON CHEST ASS SINGLE VIEW FRONTAL PRTBLE [id number] PATIENT PATIENT GASEOUS 6 AIDS INC AIDS INC O2 SYS RENT; FLWMTR HUMIDFR&M ASK O2 CONC 1 [id number] PATIENT PATIENT DEL PORT 6 AIDS INC AIDS INC 85%/>02 CONC AT PRSC FLW RATE BLOOD 58995 [place] [facility] COUNT 6 [facility] COMPLETE INC INC AUTO&AUTO DIFRNTL [facility] G0378 [place] [facility] OBSERVATI 6 [facility] ON INC INC SERVICE PER HOUR COLLECTIO 48901 [place] [facility] N VENOUS 6 [facility] BLOOD INC INC VENIPUNCT URE COMPREHEN 25745 [place] [facility] SIVE 6 [facility] METABOLIC INC INC PANEL PRESSURIZ 64462 [place] YOU ED/NONPRE 6 [facility] SSURIZED INC INC INHALATIO N TREATMENT GLUC BLD 05438 [place] YOU GLUC MNTR 6 [facility] DEV INC INC CLEARED FDA SPEC HOME USE NONINVASI 91972 [place] [facility] VE 6 [facility] EAR/PULSE INC INC OXIMETRY SINGLE DETER NONINVASI 12681 [place] YOU VE 6 [facility] EAR/PULSE INC INC OXIMETRY SINGLE DETER GLUC BLD 90582 [place] YOU GLUC MNTR 6 [facility] DEV INC INC CLEARED FDA SPEC HOME USE PRESSURIZ 87622 [place] YOU ED/NONPRE 6 [facility] SSURIZED INC INC INHALATIO N TREATMENT [facility]OSP[facility] G0378 [place] [facility] OBSERVATI 6 [facility] ON INC INC SERVICE PER HOUR [facility]OSP[facility] G0378 [facility] [facility] OBSERVATI 6 [facility] ON INC INC SERVICE PER HOUR CULTURE 31712 [place] YOU BACTERIAL 6 [facility] BLOOD INC INC AEROBIC W/ID ISOLATES BLOOD 94149 [place] YOU COUNT 6 [facility] COMPLETE INC INC AUTO&[place] [address] [place] YOU TROPONIN 6 [facility] QUANTITAT INC INC CARLOS PRESSURIZ 90092 [place] YOU ED/NONPRE 6 [facility] SSURIZED INC INC INHALATIO N TREATMENT GLUC BLD 58218 [place] YOU GLUC MNTR 6 [facility] DEV INC INC CLEARED FDA SPEC HOME USE NONINVASI 10899 [facility] [facility] VE 6 [facility] EAR/PULSE [place] [address] [place] YOU INFUSION 6 [facility] THERAPY/P INC INC ROPHYLAXI S /DX 1ST TO 1 HR THERAPEUT 78727 [place] [facility] IC 6 [facility] INJECTION INC INC IV PUSH EACH NEW DRUG INITIAL 64504 [facility] OBSERVATI 6 PHYSICIAN EUG ON S GROUP CARE/DAY [address] [place] [address] [place] YOU LACTATE 6 [facility] INC INC CREATINE 37103 [place] [facility] KINASE 6 [facility] TOTAL INC INC ECG 04618 [place] [facility] ROUTINE 6 [facility] ECG INC INC W/LEAST 12 LDS TRCG ONLY W/O I&R CREATINE 65540 KENYATTA YOU KINASE MB 6 [facility] FRACTION INC INC ONLY COMPREHEN 86418 KENYATTA MÉNDEZON SIVE 6 [facility] METABOLIC INC INC PANEL ECG 88665 KENYATTA DIAZ JR ROUTINE 6 [facility] W/LEAST P 12 LDS I&R ONLY RADIOLOGI 00178 KENYATTA KENYATTA C 6 [facility] EXAMINATI INC INC ON CHEST SINGLE VIEW FRONTAL PRTBLE E0431 PATIENT PATIENT GASEOUS 6 AIDS INC AIDS INC O2 SYS RENT; FLWMTR HUMIDFR&M ASK O2 CONC 1 E1390 PATIENT PATIENT DEL PORT 6 AIDS INC AIDS INC 85%/>02 CONC AT PRSC FLW RATE O2 CONC 1 E1390 PATIENT TESSA DEL PORT 6 AIDS INC BERNICE 85%/>02 CONC AT PRSC FLW RATE PRTBLE E0431 PATIENT TESSA GASEOUS 6 AIDS INC BERNICE O2 SYS RENT; FLWMTR HUMIDFR&M ASK PRTBLE E0431 PATIENT TESSA GASEOUS 6 AIDS INC BERNICE O2 SYS RENT; FLWMTR HUMIDFR&M ASK O2 CONC 1 E1390 PATIENT TESSA DEL PORT 6 AIDS INC BERNICE 85%/>02 CONC AT PRSC FLW RATE O2 CONC 1 E1390 PATIENT PATIENT DEL PORT 6 AIDS INC AIDS INC 85%/>02 CONC AT PRSC FLW RATE PRTBLE E0431 PATIENT PATIENT GASEOUS 6 AIDS INC AIDS INC O2 SYS RENT; FLWMTR HUMIDFR&M ASK PRTBLE E0431 PATIENT PATIENT GASEOUS 6 AIDS INC AIDS INC O2 SYS RENT; FLWMTR HUMIDFR&M ASK O2 CONC 1 E1390 PATIENT PATIENT DEL PORT 6 AIDS INC AIDS INC 85%/>02 CONC AT PRSC FLW RATE O2 CONC 1 E1390 PATIENT PATIENT DEL PORT 6 AIDS INC AIDS INC 85%/>02 CONC AT PRSC FLW RATE PRTBLE E0431 PATIENT PATIENT GASEOUS 6 AIDS INC AIDS INC O2 SYS RENT; FLWMTR HUMIDFR&M ASK RADEX 03786 RADIOLOGY LUBBERS HIPS 6 BILATERAL ASSOCIATE WITH S OF NOTH PELVIS 2 VIEWS RADEX 54114 RADIOLOGY HURST SPINE 6 LUMBOSACR ASSOCIATE AL 2/3 S OF NOTH VIEWS RADEX 81443 ST SPINE 6 [facility] LUMBOSACR FT FT AL BOBBY BOBBY MINIMUM 4 VIEWS O2 CONC 1 E1390 PATIENT PATIENT DEL PORT 6 AIDS INC AIDS INC 85%/>02 CONC AT PRSC FLW RATE PRTBLE E0431 PATIENT PATIENT GASEOUS 6 AIDS INC AIDS INC O2 SYS RENT; FLWMTR HUMIDFR&M ASK PRTBLE E0431 PATIENT PATIENT GASEOUS 6 AIDS INC AIDS INC O2 SYS RENT; FLWMTR HUMIDFR&M ASK O2 CONC 1 E1390 PATIENT PATIENT DEL PORT 6 AIDS INC AIDS INC 85%/>02 CONC AT PRSC FLW RATE ANES 33922 ANESTHESI BAKER LOLA UPPER GI 6 A GROUP ENDOSCOPY [place]ACT[place] [address] MED CTR GROSS&DIONNA ROSCOPIC EXAM SBSQ [address] CARE/DAY 25 PHYSICIAN MINUTES S INITIAL [address] CARE/DAY 50 PHYSICIAN MINUTES S SBSQ [address] CARE/DAY 25 PHYSICIAN MINUTES S SBSQ [address] CARE/DAY 25 PHYSICIAN MINUTES S SBSQ [address] CARE/DAY 25 PHYSICIAN MINUTES S SBSQ [address] CARE/DAY 25 PHYSICIAN MINUTES S SBSQ [address] CARE/DAY 25 PHYSICIAN MINUTES S INITIAL [address] CARE/DAY [address] [place] [address] RADIOLOGY MERT[facility]ON ANGIOGRAP 6 JORDYN HY CHEST ASSOCIATE W/CONTRAS S OF [facility] T/NONCONT RAST RADIOLOGI 25863 RADIOLOGY DOERGER C 6 EXAMINATI ASSOCIATE ON CHEST S OF [facility] SINGLE VIEW FRONTAL O2 CONC 1 E1390 PATIENT PATIENT DEL PORT 6 AIDS INC AIDS INC 85%/>02 CONC AT PRSC FLW RATE PRTBLE E0431 PATIENT PATIENT GASEOUS 6 AIDS INC AIDS INC O2 SYS RENT; FLWMTR [facility] [address] MANAGEMEN PHYSICIAN T 30 S MIN/< SBSQ [address] CARE/DAY 25 PHYSICIAN MINUTES S SBSQ [address] CARE/DAY [address] [place] [address] RADIOLOGY [facility] CERVICAL 6 DOT SPINE W/O ASSOCIATE CONTRAST S OF [facility] MATERIAL MYOCARDIA [address] [facility] BERNICE L SPECT 6 [facility] PHYSICIAN S CV STRS 95043 [facility] TST 6 [place] [facility] TORIBIO XERS&/OR RX CONT PHYSICIAN ECG I&R S ONLY CV STRS 41538 [facility] TST 6 [place] [facility] TORIBIO XERS&/OR RX CONT PHYSICIAN ECG W/O S I&R INITIAL [address]/DAY 50 PHYSICIAN MINUTES S SBSQ [address]/DAY 25 PHYSICIAN MINUTES S SBSQ [address]/DAY 25 PHYSICIAN MINUTES S INITIAL [address]/DAY 50 PHYSICIAN MINUTES S O2 CONC 1 E1390 PATIENT PATIENT DEL PORT 5 AIDS INC AIDS INC 85%/>02 CONC AT PRS FLW RATE PRTBLE E0431 PATIENT PATIENT GASEOUS 5 AIDS INC AIDS INC O2 SYS RENT; FLWMTR HUMIDFR&M ASK PRTBLE E0431 PATIENT PATIENT GASEOUS 5 AIDS INC AIDS INC O2 SYS RENT; FLWMTR HUMIDFR&M ASK O2 CONC 1 E1390 PATIENT PATIENT DEL PORT 5 AIDS INC AIDS INC 85%/>02 CONC AT PRS FLW RATE O2 CONC 1 E1390 PATIENT PATIENT DEL PORT 5 AIDS INC AIDS INC 85%/>02 CONC AT PRS FLW RATE PRTBLE E0431 PATIENT PATIENT GASEOUS 5 AIDS INC AIDS INC O2 SYS RENT; FLWMTR [facility] 78016 [facility] 5 NATHANIEL NATHANIEL DAY MANAGEMEN PHYSICIAN PHYSICIAN T 30 S S MIN/< DUP-SCAN 62925 [facility] XTR VEINS 5 [facility] COMPLETE MED CTR BILATERAL STUDY O2 CONC 1 E1390 PATIENT PATIENT DEL PORT 5 AIDS INC AIDS INC 85%/>02 CONC AT PRS FLW RATE PRTBLE E0431 PATIENT PATIENT GASEOUS 5 AIDS INC AIDS INC O2 SYS RENT; FLWMTR HUMIDFR&M ASK PRTBLE E0431 PATIENT PATIENT GASEOUS 5 AIDS INC AIDS INC O2 SYS RENT; FLWMTR HUMIDFR&M ASK O2 CONC 1 E1390 PATIENT PATIENT DEL PORT 5 AIDS INC AIDS INC 85%/>02 CONC AT PRSC FLW RATE CT THORAX 79854 [facility] 5 NATHANIEL NATHANIEL W/CONTRAS FT FT T [facility] MATERIAL O2 CONC 1 E1390 PATIENT PATIENT DEL PORT 5 AIDS INC AIDS INC 85%/>02 CONC AT PRSC FLW RATE PRTBLE E0431 PATIENT PATIENT GASEOUS 5 AIDS INC AIDS INC O2 SYS RENT; FLWMTR HUMIDFR&M ASK PRTBLE E0431 PATIENT PATIENT GASEOUS 5 AIDS INC AIDS INC O2 SYS RENT; FLWMTR HUMIDFR&M ASK O2 CONC 1 E1390 PATIENT PATIENT DEL PORT 5 AIDS INC AIDS INC 85%/>02 CONC AT PRSC FLW RATE PLETHYSMO 00284 [facility] GRAPHY 5 NATHANIEL YEAR LAT LUNG VOLUMES PHYSICIAN W/WO S AIRWAY RESIST BRNCDILAT [address] [facility] RSPSE 5 NATHANIEL YEAR LAT SPMTRY PRE&POST- [place] [address] [facility] DIFFUSING 5 NATHANIEL YEAR LAT CAPACITY [facility] [address] RO NIV DISCHARGE 5 NATHANIEL DAY MANAGEMEN PHYSICIAN T 30 S MIN/< SEAT E0156 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 5 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 STONE T [facility] E0143 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 FOLDING 5 STONE STONE WHEELED MEDICAL MEDICAL ADJUSTABL SVCS SVCS E/FIXED HEIGHT CT THORAX 88450 RADIOLOGY LUBBERS 5 KAROLYN W/CONTRAS ASSOCIATE T S OF NOTH MATERIAL RADEX 72851 RADIOLOGY HURST BERNICE SHOULDER 5 COMPLETE ASSOCIATE MINIMUM 2 S OF NOTH VIEWS BRNCDILAT [address]77 [facility] R[facility] 4 NATHANIEL IRF SPMTRY MED CTR PRE&[place] [address] [facility] BUDHANI DIFFUSING 4 NATHANIEL IRF CAPACITY MED CTR PLETHYSMO 52792 [facility] NATHANIEL IRF LUNG MED CTR VOLUMES W/WO AIRWAY RESIST CT THORAX 50580 RADIOLOGY HURST BERNICE 4 W/CONTRAS ASSOCIATE T S OF NOTH MATERIAL CT THORAX [address] ST 4 NATHANIEL NATHANIEL W/CONTRAS FT FT T [facility] 84985 BOB BOB DISCHARGE 4 DAY MANAGEMEN T 30 MIN/< RADIOLOGI 77978 ADRIANA Melvin 4 MAURO EXAMINATI ON CHEST SINGLE VIEW FRONTAL CT THORAX 81919 RANJIT Salazar MAURO MAURO W/CONTRAS T MATERIAL O2 CONC 1 E1390 PATIENT PATIENT DEL PORT 4 AIDS INC AIDS INC 85%/>02 CONC AT PRSC FLW RATE PRTBLE E0431 PATIENT PATIENT GASEOUS 4 AIDS INC AIDS INC O2 SYS RENT; FLWMTR HUMIDFR&M ASK PRTBLE E0431 PATIENT PATIENT GASEOUS 4 AIDS INC AIDS INC O2 SYS RENT; FLWMTR HUMIDFR&M ASK O2 CONC 1 E1390 PATIENT PATIENT DEL PORT 4 AIDS INC AIDS INC 85%/>02 CONC AT PRSC FLW RATE O2 CONC 1 E1390 PATIENT PATIENT DEL PORT 3 AIDS INC AIDS INC 85%/>02 CONC AT PRSC FLW RATE PRTBLE E0431 PATIENT PATIENT GASEOUS 3 AIDS INC AIDS INC O2 SYS RENT; FLWMTR HUMIDFR&M ASK COMPREHEN [address] SIVE 3 [facility] METABOLIC MED CTR MED CTR PANEL COMPUTER APPLICATION DEVELOPER ST COMPUTER APPLICATION DEVELOPER ST LIPID [address] PANEL 3 [facility] MED CTR MED CTR COMPUTER APPLICATION DEVELOPER ST COMPUTER APPLICATION DEVELOPER ST BLOOD [address] COUNT 3 [facility] COMPLETE MED CTR MED CTR AUTO&AUTO COMPUTER APPLICATION DEVELOPER ST COMPUTER APPLICATION [place] [address] THYROID 3 [facility] STIMULATI MED CTR MED CTR NG COMPUTER APPLICATION DEVELOPER ST COMPUTER APPLICATION DEVELOPER ST HORMONE TSH O2 CONC 1 E1390 PATIENT PATIENT DEL PORT 3 AIDS INC AIDS INC 85%/>02 CONC AT PRSC FLW RATE PRTBLE E0431 PATIENT PATIENT GASEOUS 3 AIDS INC AIDS INC O2 SYS RENT; FLWMTR HUMIDFR&M ASK PRTBLE E0431 PATIENT PATIENT GASEOUS 3 AIDS INC AIDS INC O2 SYS RENT; FLWMTR HUMIDFR&M ASK O2 CONC 1 E1390 PATIENT PATIENT DEL PORT 3 AIDS INC AIDS INC 85%/>02 CONC AT PRSC FLW RATE NONEMERG A0120 LKLP CAC LKLP CAC TRNSPRT: 3 INC INC MINI-BUS REGION 9 REGION 9 [facility] AREA/OT SYS BLOOD 80278 [facility] COUNT 3 N JORDYN N JORDYN COMPLETE AUTO&AUTO DIFRNTL WBC COMPREHEN [address] METABOLIC MEDICAL MEDICAL PANEL C C PRTBLE E0431 PATIENT PATIENT GASEOUS 3 AIDS INC AIDS INC O2 SYS RENT; FLWMTR HUMIDFR&M ASK O2 CONC 1 E1390 PATIENT PATIENT DEL PORT 3 AIDS INC AIDS INC 85%/>02 CONC AT PRSC FLW RATE RADEX [address] SPINE 3 NATHANIEL NATHANIEL LUMBOSACR FT FT AL 2/3 BOBBY BOBBY VIEWS PRTBLE E0431 PATIENT PATIENT GASEOUS 3 AIDS INC AIDS INC O2 SYS RENT; FLWMTR HUMIDFR&M ASK PET 09614 [facility] [address] ATTENUATI ON SKULL BASE MID-THIGH FLUORODEO A[address] XYGLUCOSE 3 [facility] F-18 FDG MEDICAL MEDICAL DX UP TO CENTER CENTER 45 MCI PORTABLE E0443 PATIENT PATIENT O2 3 AIDS INC AIDS INC CONTENTS GASEOUS 1 MO SUPPLY=1 UNIT PRTBLE E0431 PATIENT PATIENT GASEOUS 3 AIDS INC AIDS INC O2 SYS RENT; FLWMTR HUMIDFR&M ASK O2 CONC 1 E1390 PATIENT PATIENT DEL PORT 3 AIDS INC AIDS INC 85%/>02 CONC AT PRSC FLW RATE BLOOD 78443 [facility] COUNT 3 N JORDYN N JORDYN COMPLETE AUTO&AUTO DIFRNTL WBC COMPREHEN [address] METABOLIC MEDICAL MEDICAL PANEL C C LOCM Q9967 ST ST 300-399 3 NATHANIEL NATHANIEL MG/ML FT FT IODINE BOBBY ROSALES CONCENTRA TION PER ML CT THORAX 89422 FUNMI FUNMI 3 CHR CHR W/CONTRAS T MATERIAL O2 CONC 1 E1390 PATIENT PATIENT DEL PORT 3 AIDS INC AIDS INC 85%/>02 CONC AT PRSC FLW RATE PRTBLE E0431 PATIENT PATIENT GASEOUS 3 AIDS INC AIDS INC O2 SYS RENT; FLWMTR HUMIDFR&M ASK RADJ DLVR [address] 3/> 3 NATHANIEL NAHTANIEL AREAS FT FT CUSTOM BOBBY BOBBY BLKING 11-19MEV BLOOD 35014 [facility] COUNT 3 N JORDYN N JORDYN COMPLETE AUTO&AUTO DIFRNTL WBC O2 CONC 1 E1390 PATIENT PATIENT DEL PORT 3 AIDS INC AIDS INC 85%/>02 CONC AT [facility] FLW RATE PRTBLE E0431 PATIENT PATIENT GASEOUS 3 AIDS INC AIDS INC O2 SYS RENT; FLWMTR HUMIDFR&M ASK RADJ DLVR [address] 3/> [facility] FT CUSTOM BOBBY BOBBY BLKING 11-19MEV RADJ DLVR [address] 3/> [facility] FT FT CUSTOM BOBBY BOBBY BLKING 11-19MEV CONTINUIN 30663 [facility] MEDICAL 3 [facility] PHYSICS FT FT CONSLTJ BOBBY BOBBY AL WK RADJ DLVR [address] 3/> [facility] FT FT CUSTOM BOBBY BOBBY BLKING 11-19MEV RADJ DLVR [address] 3/> [facility] FT FT CUSTOM BOBBY BOBBY BLKING 11-19MEV RADIATION 72077 SHO SHAH BERKOWITZ PRA 3 TREATMENT MANAGEMEN T 5 TREATMENT S THERAPEUT [address] ST IC 3 [facility] RADIOLOGY FT FT PORT BOBBY BOBBY IMAGES(S) RADJ DLVR [address] 3/> 3 [facility] AREAS FT FT CUSTOM BOBBY BOBBY BLKING 11-19MEV BLOOD 46692 [facility] 3 MATIAS M MATIAS M COMPLETE AUTO&AUTO DIFRNTL WBC RADJ DLVR [address] 3/> 3 [facility] FT FT CUSTOM BOBBY BOBBY BLKING 11-19MEV CONTINUIN 61612 [facility] 3 [facility] PHYSICS FT FT CONSLTJ BOBBY BOBBY AL WK RADJ DLVR [address] 3/> 3 NATHANIEL NATHANIEL AREAS FT FT CUSTOM BOBBY BOBBY BLKING 11-19MEV RADJ DLVR [address] 3/> 3 NATHANIEL NATHANIEL AREAS FT FT CUSTOM BOBBY BOBBY BLKING 11-19MEV RADJ DLVR [address] 3/> 3 NATHANIEL NATHANIEL AREAS FT FT CUSTOM BOBBY BOBBY BLKING 11-MEV THERAPEUT [address] IC 3 NATHANIEL NATHANIEL RADIOLOGY FT FT PORT BOBBY BOBBY IMAGES(S) RADIATION 11391 BERKOWITZ PRA BERKOWITZ PRA 3 TREATMENT MANAGEMEN T 5 TREATMENT S RADJ DLVR [address] 3/> 3 NATHANIEL NATHANIEL AREAS FT FT CUSTOM BOBBY BOBBY BLKING 11-19MEV BLOOD 05579 LEANDRA MOBLEY COUNT 3 N JORDYN COBB COMPLETE AUTO&AUTO DIFRNTL WBC COMPREHEN 21348 LEANDRA MOBLEY SIVE 3 N JORDYN N JORDYN METABOLIC PANEL CONTINUIN [address] G MEDICAL 3 NATHANIEL NATHANIEL PHYSICS FT FT CONSLTJ BOBBY BOBBY AL WK RADJ DLVR [address] 3/> 3 NATHANIEL NATHANIEL AREAS FT FT CUSTOM BOBBY BOBBY BLKING 11-19[place] IV [address] LEANRDA MOBLEY INFUSION 3 N JORDYN COBB THER PROPH ADDL SEQUENTIA L TO 1 HR CHEMOTX 24439 LEANDRA MOBLEY ADMN IV 3 N JORDYN COBB NFS TQ EA SEQL NFS TO 1 HR INJECTION J1200 LEANDRA MOBLEY 3 N JORDYN COBB DIPHENHYD RAMINE HCL UP TO 50 MG INJECTION J9045 LEANDRA MOBLEY 3 N JORDYN COBB CARBOPLAT IN 50 MG INJECTION J2780 LEANDRA MOBLEY 3 N JORDYN COBB RANITIDIN E HYDROCHLO RIDE 25 MG INJECTION J1100 LEANDRA MOBLEY 3 N JORDYN COBB DEXAMETHO SONE SODIUM PHOSPHATE 1 MG CHEMOTX 46414 LEANDRA MOBLEY ADMN IV 3 N JORDYN COBB NFS TQ UP 1 HR SBST/DRUG INJECTION J2405 LEANDRA MOBLEY 3 N JORDYN N JORDYN ONDANSETR ON HCL PER 1 MG INJECTION J9265 LEANDRA MOBLEY 3 N JORDYN N JORDYN PACLITAXE L 30 MG RADJ DLVR [address] 3/> 3 NATHANIEL NATHANIEL AREAS FT FT CUSTOM BOBBY BOBBY BLKING 11-19MEV RADJ DLVR [address] 3/> 3 NATHANIEL NATHANIEL AREAS FT FT CUSTOM BOBBY BOBBY BLKING 11-19MEV RADJ DLVR [address] 3/> 3 NATHANIEL NATHANIEL AREAS FT FT CUSTOM BOBBY BOBBY BLKING 11-19MEV RADIATION 69089 SHO SHAH BERKOWITZ PRA 3 TREATMENT MANAGEMEN T 5 TREATMENT S THERAPEUT [address] IC 3 [facility] RADIOLOGY FT FT PORT BOBBY BOBBY IMAGES(S) RADJ DLVR [address] 3/> 3 NATHANIEL NATHANIEL AREAS FT FT CUSTOM BOBBY BOBBY BLKING 11-19MEV CONTINUIN [address] G MEDICAL 3 [facility] PHYSICS FT FT CONSLTJ BOBBY BOBBY AL WK RADJ DLVR [address] 3/> 3 NATHANIEL NATHANIEL AREAS FT FT CUSTOM BOBBY BOBBY BLKING 11-19MEV COMPREHEN 26415 LEANDRA MOBLEY SIVE 3 N JORDYN N JORDYN METABOLIC PANEL BLOOD 05896 LEANDRA MOBLEY COUNT 3 N JORDYN N JORDYN COMPLETE AUTO&AUTO DIFRNTL WBC INJECTION J9045 LEANDRA MOBLEY 3 N JORDYN N JORDYN CARBOPLAT IN 50 MG PLETHYSMO 67055 [facility]OWN-P[facility] GRAPHY 3 YEAR LAT YEAR LAT LUNG VOLUMES W/WO AIRWAY RESIST BRNCDILAT 03275 [facility] RSPSE 3 YEAR LAT YEAR LAT SPMTRY PRE&[place]- [place] [address] [facility] DIFFUSING 3 YEAR LAT YEAR LAT CAPACITY RADIATION 94927 SHO SHAH 3 TREATMENT MANAGEMEN T 5 TREATMENT S COMPREHEN 24452 LEANDRA MOBLEY SIVE 3 [place] [address] LEANDRA MOBLEY INFUSION 3 N JORDYN N JORDYN THER PROPH ADDL SEQUENTIA L TO 1 HR CHEMOTX 14852 LEANDRA MOBLEY ADMN IV 3 N JORDYN N JORDYN NFS TQ EA SEQL NFS TO 1 HR BLOOD 60429 LEANDRA SAID BEL COUNT 3 N JORDYN COMPLETE AUTO&AUTO DIFRNTL WBC INJECTION J9045 LEANDRA MOBLEY 3 N JORDYN N JORDYN CARBOPLAT IN 50 MG INJECTION J9265 LEANDRA MOBLEY 3 N JORDYN N JORDYN PACLITAXE L 30 MG CHEMOTX 32074 LEANDRA MOBLEY ADMN IV 3 N JORDYN N JORDYN NFS TQ UP 1 HR SBST/DRUG INJECTION J2780 LEANDRA KERRI 3 N JORDYN VELASQUEZ RANITIDIN E HYDROCHLO RIDE 25 MG INJECTION J1100 LEANDRA MOBLEY 3 N JORDYN N JORDYN DEXAMETHO SONE SODIUM PHOSPHATE 1 MG INJECTION J2405 LEANDRA MOBLEY 3 N JORDYN N JORDYN ONDANSETR ON HCL PER 1 MG INJECTION J1200 LEANDRA MOBLEY 3 N JORDYN N JORDYN DIPHENHYD RAMINE HCL UP TO 50 MG RADIATION 89660 SHO SHAH 3 TREATMENT MANAGEMEN T 5 TREATMENT S PRTBLE E0431 KAMALJIT MARI GASEOUS 3 HOME HOME O2 SYS MEDICAL MEDICAL RENT; EQUIPME EQUIPME FLWMTR HUMIDFR&M ASK O2 CONC 1 E1390 KAMALJIT MARI DEL PORT 3 HOME HOME 85%/>02 MEDICAL MEDICAL CONC AT EQUIPME EQUIPME PRSC FLW RATE BLOOD 21113 LEANDRA MASSEYE COUNT 3 N JORDYN JR CHRYSTAL COMPLETE AUTO&AUTO DIFRNTL WBC CHEMOTX 79298 LEANDRA MOBLEY ADMN IV 3 N JORDYN N JORDYN NFS TQ EA SEQL NFS TO 1 [place] [address] LEANDRA MOBLEY INFUSION 3 N JORDYN N JORDYN THER PROPH ADDL SEQUENTIA L TO 1 HR COMPREHEN 34745 LEANDRA MOBLEY SIVE 3 N JORDYN N JORDYN METABOLIC PANEL INJECTION J2405 LEANDRA MOBLEY 3 N JORDYN N JORDYN ONDANSETR ON HCL PER 1 MG INJECTION J1200 LEANDRA MOBLEY 3 N JORDYN N JORDYN DIPHENHYD RAMINE HCL UP TO 50 MG INJECTION J9045 LEANDRA MOBLEY 3 N JORDYN N JORDYN CARBOPLAT IN 50 MG INJECTION J1100 LEANDRA MOBLEY 3 N JORDYN N JORDYN DEXAMETHO SONE SODIUM PHOSPHATE 1 MG INJECTION J2780 LEANDRA MOBLEY 3 N JORDYN N JORDYN RANITIDIN E HYDROCHLO RIDE 25 MG CHEMOTX 54365 LEANDRA MOBLEY ADMN IV 3 N JORDYN N JORDYN NFS TQ UP 1 HR SBST/DRUG INJECTION J9265 LEANDRA MOBLEY 3 N JORDYN N JORDYN PACLITAXE L 30 MG RADIATION 52737 SHO BERKOWITZ PRA 3 TREATMENT MANAGEMEN T 5 TREATMENT S COMPREHEN 81244 LEANDRA MOBLEY SIVE 3 [place] [address] LEANDRA MOBLEY INFUSION 3 N JORDYN N JORDYN THER PROPH ADDL SEQUENTIA L TO 1 HR CHEMOTX 14490 LEANDRA MOBLEY ADMN IV 3 N JORDYN N JORDYN NFS TQ EA SEQL NFS TO 1 HR BLOOD 74145 LEANDRA MOBLEY COUNT 3 N JORDYN N JORDYN COMPLETE AUTO&AUTO DIFRNTL WBC INJECTION J9265 LEANDRA BARNESMAN 3 N JORDYN N JORDYN PACLITAXE L 30 MG CHEMOTX 03660 LEANDRA MOBLEY ADMN IV 3 N JORDYN N JORDYN NFS TQ UP 1 HR SBST/DRUG INJECTION J2780 LEANDRA MOBLEY 3 N JORDYN N JORDYN RANITIDIN E HYDROCHLO RIDE 25 MG INJECTION J1100 LEANDRA MOBLEY 3 N JORDYN N JORDYN DEXAMETHO SONE SODIUM PHOSPHATE 1 MG INJECTION J1200 LEANDRA MOBLEY 3 N JORDYN N JORDYN DIPHENHYD RAMINE HCL UP TO 50 MG INJECTION J9045 LEANDRA MOBLEY 3 N JORDYN N JORDYN CARBOPLAT IN 50 MG ADMN SET A7003 YOUR YOUR SM VOL 3 [facility] P[facility] NEBULIZR DISPBL 3-D 22873 [facility] RADIOTHER 3 BRA BRA APY PLAN DOSE-VOLU ME HISTOGRAM S BASIC 31970 [facility] RADIATION 3 [place] [address] [facility] DEVICES 3 BRA BRA DESIGN & CONSTRUCT ION COMPLEX SPMTRY 41078 SRINIVASAN BAR SRINIVASAN BAR W/VC 3 EXPIRATOR Y JONATHAN W/WO MXML VOL VNTJ THER RAD 80374 SHO SHAH SIMULAJ-A [address] [place] [address] HURST BERNICE HURST BERNICE GUIDANCE 3 RADIATION THERAPY FLDS PLACEMENT THERAPEUT 40849 SHO SHAH IC 3 RADIOLOGY [place] [address] [facility] 3 [place] PET [place] PET SKULL [employer] [facility] BASE TO MID-THIGH FLUORODEO A9552 [facility] XYGLUCOSE 3 [place] PET [place] PET F-18 FDG [employer] [facility] DX UP TO 45 MCI PRTBLE E0431 KAMALJIT MARI GASEOUS 3 HOME HOME O2 SYS MEDICAL MEDICAL RENT; EQUIPIN EQUIPIN FLWMTR HUMIDFR&M ASK O2 CONC 1 E1390 KAMALJIT MARI DEL PORT 3 HOME HOME 85%/>02 MEDICAL MEDICAL CONC AT EQUIPME EQUIPME PRSC FLW RATE BLOOD 25117 LEANDRA MOBLEY COUNT 3 N [facility]ORDYN [facility] COMPLETE AUTO&AUTO DIFRNTL WBC BLOOD 54294 [facility] YOU COUNT 3 [facility] COMPLETE INC INC AUTO&AUTO DIFRNTL WBC COMPREHEN 37093 [facility]TA YOU SIVE 3 [facility] METABOLIC INC INC PANEL ADMN SET A7003 YOUR YOUR SM VOL 3 PHARMACY PHARMACY [facility] PNEUMAT NEBULIZR DISPBL PRTBLE E0431 KAMALJIT MARI GASEOUS 3 HOME HOME O2 SYS MEDICAL MEDICAL RENT; EQUIPME EQUIPME FLWMTR HUMIDFR&M ASK O2 CONC 1 E1390 KAMALJIT KAMALJIT DEL PORT 3 HOME HOME 85%/>02 MEDICAL MEDICAL CONC AT EQUIPME EQUIPME PRSC FLW RATE CONSLTJ&R 95218 ERIKA JAMES EPRT 3 LOLA LOLA SLIDES PREPARED ELSEWHERE RADIOLOGI 55435 RUSS RUSS C EXAM 3 RHEA RHEA CHEST 2 VIEWS FRONTAL&L ATERAL BLOOD 01215 [facility] COUNT 3 [facility] COMPLETE INC INC AUTO&AUTO DIFRNTL [facility] G0378 [facility] YOU OBSERVATI 3 [facility] ON INC INC SERVICE PER HOUR BASIC 14303 [facility] YOU METABOLIC 3 [facility] PANEL INC INC CALCIUM TOTAL NONINVASI 57291 [facility] YOU VE 3 [facility] EAR/PULSE INC INC OXIMETRY SINGLE DETER PRESSURIZ 98099 [facility] YOU ED/NONPRE 3 [facility] SSURIZED INC INC INHALATIO N TREATMENT OBSERVATI 73369 BARBRA CHRISTENSENMIE ON CARE 3 JR CHRYSTAL JR CHRYSTAL DISCHARGE MANAGEMEN T CYTP FINE 70052 PICKLESIM PICKLESIM NDL 3 ER JR SANA ER JR SANA ASPIRATE IMMT CYTOHIST STD DX 1ST CYTP EVAL 07165 PICKLESIM PICKLESIM FINE 3 ER JR SANA ER JR SANA NEEDLE ASPIRATE INTERP & RE[place] [address] PICKLESIM PICKLESIM SURG 3 ER JR SANA ER JR SANA PATHOLOGY GROSS&DIONNA ROSCOPIC EXAM NONINVASI 86587 KENYATTA YOU VE 3 [facility] EAR/PULSE INC INC OXIMETRY SINGLE DETER PRESSURIZ 55704 KENYATTA YOU ED/NONPRE 3 [facility] SSURIZED INC INC INHALATIO N TREATMENT INITIAL 71287 BRYAN LUQUEGEOVANNI OBSERVATI 3 MAURO MAURO ON CARE/DAY [address] [place] [address] KENY[place]TA YOU GUIDANCE 3 [facility] NEEDLE INC INC PLACEMENT ANESTHESI 09320 [facility] ANESTH CHEST OF THE NEEDLE BLUE BIOPSY PLEURA FINE 49400 KENY[place]TA YOU NEEDLE 3 [facility] ASPIRATIO INC INC N WITH IMAGING GUIDANCE CT THORAX 14649 KENYATTA YOU W/O 3 [facility] CONTRAST INC INC MATERIAL RADIOLOGI 68243 RUSS RUSS C EXAM 3 RHEA RHEA CHEST 2 VIEWS FRONTAL&L ATERAL BLOOD 42112 KENYATTA YOU COUNT 3 [facility] COMPLETE INC INC AUTO&AUTO DIFRNTL WBC PROTHROMB 68449 KENYATTA YOU IN TIME 3 [facility] INC INC THROMBOPL 91165 KENYATTA YOU ASTIN 3 [facility] TIME INC INC PARTIAL PLASMA/[facility] 43154 [facility] DISCHARGE 3 JR CHRYSTAL SANTOYO [facility] DAY MANAGEMEN T 30 MIN/< SBSQ 68307 [facility] 3 JR CHRYSTAL SANTOYO CHRYSTAL CARE/DAY 25 MINUTES INITIAL 07771 [facility] 3 MAURO MAURO CARE/DAY [address] [place] [address] RUSS RUSS ANGIOGRAP 3 RHEA RHEA HY CHEST W/CONTRAS T/NONCONT RAST RADIOLOGI 15949 RUSS RUSS C EXAM 3 RHEA RHEA CHEST 2 VIEWS FRONTAL&L ATERAL ECG 41173 EMILY DIAZ JR ROUTINE 3 DWI DWI ECG W/LEAST 12 LDS I&R ONLY NONINVASI 27782 BRYAN ADAMS VE 3 MAURO MAURO EAR/PULSE OXIMETRY SINGLE DETER ADMN SET A7003 YOUR YOUR SM VOL 3 [facility] PNEUMAT NEBULIZR DISPBL PRTBLE E0431 KAMALJIT KAMALJIT GASEOUS 3 HOME HOME O2 SYS MEDICAL MEDICAL RENT; EQUIPME EQUIPME FLWMTR HUMIDFR&M ASK O2 CONC 1 E1390 KAMALJIT MARI DEL PORT 3 HOME HOME 85%/>02 MEDICAL MEDICAL CONC AT EQUIPME EQUIPME PRSC FLW RATE O2 CONC 1 E1390 KAMALJIT MARI [place] 2 HOME HOME 85%/>02 MEDICAL MEDICAL CONC AT EQUIPME EQUIPME PRSC FLW RATE PRTBLE E0431 KAMALJIT SEVILLARELL GASEOUS 2 HOME HOME O2 SYS MEDICAL MEDICAL RENT; EQUIPME EQUIPME FLWMTR HUMIDFR&M ASK ADMN SET A7003 YOUR YOUR SM VOL 2 PHARMACY PHARMACY [facility] PNEUMAT NEBULIZR DISPBL RADIOLOGI 25228 [place] [address] MEDICAL RHEA EXAMINATI IMAGING ON CHEST ASS SINGLE VIEW FRONTAL AMB A0427 [facility] SERVICE 2 AMBULANCE AMBULANCE ALS SERVICE SERVICE EMERGENCY TRANSPORT LEVEL 1 GROUND A0425 [facility] MILEAGE 2 AMBULANCE AMBULANCE PER SERVICE SERVICE STATUTE MILE BRNCDILAT 57818 BARBRA BELLE RSPSE 2 JR CHRYSTAL JARRELL SPMTRY PRE&POST- BRNCDILAT ADMN BLOOD 85743 KENYATTA YOU GASES ANY 2 [facility] INC INC COMBINATI ON PH PCO2 PO2 CO2 HCO3 GAS 84269 BARBRA BELLE DILUT/WAS 2 JR CHRYSTAL SANTOYO CHRYSTAL HOUT LUNG VOL W/WO DISTRIB VENT&V PRTBLE E0431 KAMALJIT MARI GASEOUS 2 HOME HOME O2 SYS MEDICAL MEDICAL RENT; EQUIPME EQUIPME FLWMTR HUMIDFR&M ASK O2 CONC 1 E1390 KAMALJIT MARI DEL [place] 2 HOME HOME 85%/>02 MEDICAL MEDICAL CONC AT EQUIPME EQUIPME PRSC FLW RATE LOCM Q9967 KENYATTA YOU [phone] [facility] MG/ML INC INC IODINE CONCENTRA TION PER ML 3D 95846 KENYATTA YOU RENDERING 2 [facility] INC INC W/INTERP& POSTPROC DIFF WORK STATION CT THORAX 31174 RUSS RUSS 2 RHEA RHEA W/[place] [address] K[place]TA YOU THYROID 2 [facility] STIMULATI INC INC NG HORMONE TSH LIPID 87174 KENY[place]TA YOU PANEL 2 [facility] INC INC 25 69357 KENYATTA YOU HYDROXY [facility] INCLUDES INC INC FRACTIONS IF PERFORMED CYANOCOBA 80958 K[place] YOU RAMBO 2 [facility] VITAMIN INC INC B-12 COMPREHEN 45923 [place] YOU SIVE 2 [facility] METABOLIC INC INC PANEL BLOOD 42668 [place] YOU COUNT 2 [facility] COMPLETE INC INC AUTO&AUTO DIFRNTL WBC RADIOLOGI 07122 K[place]TA MÉNDEZON C EXAM 2 [facility] CHEST 2 INC INC VIEWS FRONTAL&L ATERAL O2 CONC 1 E1390 KAMALJIT MARI DEL [place] 2 HOME HOME 85%/>02 MEDICAL MEDICAL CONC AT EQUIPME EQUIPME PRSC FLW RATE PRTBLE E0431 KAMALJIT KAMALJIT GASEOUS 2 HOME HOME O2 SYS MEDICAL MEDICAL RENT; EQUIPME EQUIPME FLWMTR HUMIDFR&M ASK ADMN SET A7003 YOUR YOUR VOL 2 [facility] NEBULIZ[facility] DISPBL PRTBLE E0431 KAMALJIT KAMALJIT GASEOUS 2 HOME HOME O2 SYS MEDICAL MEDICAL RENT; EQUIPME EQUIPME FLWMTR HUMIDFR&M ASK O2 CONC 1 E1390 KAMALJIT MARI DEL PORT 2 HOME HOME 85%/>02 MEDICAL MEDICAL CONC AT EQUIPME EQUIPME PRSC FLW RATE O2 CONC 1 E1390 KAMALJIT MARI DEL PORT 2 HOME HOME 85%/>02 MEDICAL MEDICAL CONC AT EQUIPME EQUIPME PRSC FLW RATE PRTBLE E0431 KAMALJIT KAMALJIT GASEOUS 2 HOME HOME O2 SYS MEDICAL MEDICAL RENT; EQUIPME EQUIPME FLWMTR HUMIDFR&M ASK PRTBLE E0431 KAMALJIT MARI GASEOUS 2 HOME HOME O2 SYS MEDICAL MEDICAL RENT; EQUIPME EQUIPME FLWMTR HUMIDFR&M ASK O2 CONC 1 E1390 KAMALJIT MARI DEL PORT 2 HOME HOME 85%/>02 MEDICAL MEDICAL CONC AT EQUIPME EQUIPME PRSC FLW RATE ADMN SET A7003 YOUR YOUR SM VOL 2 PHARMACY PHARMACY NON[facility] [employer] [place] [address] [place] YOU THYROID 2 [facility] STIMULATI INC INC NG HORMONE TSH BLOOD 14542 [place] YOU COUNT 2 [facility] COMPLETE INC INC AUTO&AUTO DIFRNTL WBC COMPREHEN 59140 [place] YOU SIVE 2 [facility] METABOLIC INC INC PANEL CYANOCOBA 38820 KENY[place]TA YOU RAMBO 2 [facility] VITAMIN INC INC B-12 LIPID 45110 [place] YOU PANEL 2 [facility] INC INC 25 24608 [place] YOU HYDROXY 2 [facility] INCLUDES INC INC FRACTIONS IF PERFORMED PRTBLE E0431 KAMALJIT SEVILLARELL GASEOUS 2 HOME HOME O2 SYS MEDICAL MEDICAL RENT; EQUIPME EQUIPME FLWMTR HUMIDFR&M ASK O2 CONC 1 E1390 KAMALJIT MARI DEL [place] 2 HOME HOME 85%/>02 MEDICAL MEDICAL CONC AT EQUIPME EQUIPME PRSC FLW RATE O2 CONC 1 E1390 KAMALJIT MARTINEZ PORT 2 HOME HOME 85%/>02 MEDICAL MEDICAL CONC AT EQUIPME EQUIPME PRSC FLW RATE PRTBLE E0431 KAMALJIT MARI GASEOUS 2 HOME HOME O2 SYS MEDICAL MEDICAL RENT; EQUIPME EQUIPME FLWMTR HUMIDFR&M ASK ADMN SET A7003 YOUR YOUR SM VOL 2 PHARMACY PHARMACY NONFILTR [employer] PNEUMAT NEBULIZR DISPBL PRTBLE E0431 KAMALJIT MARI GASEOUS 2 HOME HOME O2 SYS MEDICAL MEDICAL RENT; EQUIPME EQUIPME FLWMTR HUMIDFR&M ASK O2 CONC 1 E1390 KAMALJIT MARI DEL PORT 2 HOME HOME 85%/>02 MEDICAL MEDICAL CONC AT EQUIPME EQUIPME PRSC FLW RATE ADMN SET A7003 YOUR YOUR SM VOL 2 PHARMACY PHARMACY [facility] PNEUMAT NEBULIZR DISPBL O2 CONC 1 E1390 KAMALJIT MARTINEZ PORT 2 HOME HOME 85%/>02 MEDICAL MEDICAL CONC AT EQUIPME EQUIPME PRSC FLW RATE PRTBLE E0431 KAMALJIT MARI GASEOUS 2 HOME HOME O2 SYS MEDICAL MEDICAL RENT; EQUIPME EQUIPME FLWMTR HUMIDFR&M ASK ADMN SET A7003 YOUR YOUR SM VOL 2 PHARMACY PHARMACY [facility] PNEUMAT NE[facility]ULIZR DISPBL HOSPITAL 50928 [facility] 2 [facility] DAY INTERNAL MANAGEMEN MED T 30 MIN/< MYOCARDIA 63244 [facility] SPECT 2 [facility] MULTIPLE CARDIOLOG STUDIES Y CLINIC SBSQ [address] CARE/DAY INTERNAL 25 MED MINUTES SBSQ [address] CARE/DAY INTERNAL 25 MED MINUTES SBSQ [address] CARE/DAY INTERNAL 25 MED MINUTES AMB A0427 [facility] SERVICE 2 AMBULANCE AMBULANCE ALS SERVICE SERVICE EMERGENCY TRANSPORT LEVEL [address] [facility] 2 EMERGENCY ILL/INJUR SERVICES ED PATIENT INIT 30-74 MIN RADIOLOGI 27651 [place] R[place] C 2 MEDICAL RHEA EXAMINATI IMAGING ON CHEST ASS SINGLE VIEW FRONTAL INITIAL [address] CARE/DAY INTERNAL 50 MED MINUTES GROUND A0425 [facility]UL[facility] PER SERVICE SERVICE STATUTE MILE O2 CONC 1 E1390 KAMALJIT MARTINEZ PORT 2 HOME HOME 85%/>02 MEDICAL MEDICAL CONC AT EQUIPME EQUIPME PRSC FLW RATE PRTBLE E0431 KAMALJIT MARI GASEOUS 2 HOME HOME O2 SYS MEDICAL MEDICAL RENT; EQUIPME EQUIPME FLWMTR HUMIDFR&M ASK NEBULIZER E0570 KAMALJIT MARI WITH 2 HOME HOME COMPRESSO MEDICAL MEDICAL R EQUIPME EQUIPME ADMN SET A7003 YOUR YOUR SM VOL 2 PHARMACY PHARMACY [facility] PNEUMAT NEBULIZR DISPBL BLOOD 72859 [place] YOU COUNT 2 [facility] COMPLETE INC INC AUTO&AUTO DIFRNTL WBC BASIC 31207 [place] YOU METABOLIC 2 [facility] PANEL INC INC CALCIUM TOTAL O2 CONC 1 E1390 KAMALJIT MARI DEL PORT 2 HOME HOME 85%/>02 MEDICAL MEDICAL CONC AT EQUIPME EQUIPME PRSC FLW RATE PRTBLE E0431 KAMALJIT MARI GASEOUS 2 HOME HOME O2 SYS MEDICAL MEDICAL RENT; EQUIPME EQUIPME FLWMTR HUMIDFR&M [facility] 933[address] [facility] 2 JR [facility] DAY MANAGEMEN T 30 MIN/< SBSQ [address] [place] CARE/DAY INTERNAL 25 MED MINUTES SBSQ [address] CARE/DAY INTERNAL 25 MED MINUTES SBSQ 06078 [facility] 2 JR CHRYSTAL JARRELL CARE/DAY 25 MINUTES SBSQ 12847 [facility] 2 JR CHRYSTAL SANTOYO CHRYSTAL CARE/DAY 35 MINUTES INTUBATIO 91793 [facility] N 2 DIONNA DIONNA ENDOTRACH EAL EMERGENCY PROCEDURE ECG 98123 [facility] ROUTINE 2 DIONNA DIONNA ECG W/LEAST 12 LDS I&R ONLY INITIAL 27746 [facility] 2 JR CHRYSTAL SANTOYO CHRYSTAL CARE/DAY 70 MINUTES GROUND A0425 [facility] MILEAGE 2 AMBULANCE AMBULANCE PER SERVICE SERVICE STATUTE MILE CRITICAL 81025 [facility] CARE 2 DIONNA DIONNA ILL/INJUR ED PATIENT INIT 30-74 MIN AMB A0427 [facility] SERVICE 2 AMBULANCE AMBULANCE ALS SERVICE SERVICE EMERGENCY TRANSPORT LEVEL 1 CONT 9671 [place] YOU INVASIVE 2 [facility] MECH VENT INC INC < 96 CONSECUTI VE HOURS INSERTION 9604 [place] YOU OF 2 [facility] ENDOTRACH INC INC EAL TUBE O2 CONC 1 E1390 KAMALJITRACHEL MARI DEL PORT 1 HOME HOME 85%/>02 MEDICAL MEDICAL CONC AT EQUIPME EQUIPME PRS FLW RATE PRTBLE E0431 KAMALJIT MARI GASEOUS 1 HOME HOME O2 SYS MEDICAL MEDICAL RENT; EQUIPME EQUIPME FLWMTR HUMIDFR&M ASK ECG 06805 [facility] ROUTINE 1 DIONNA DIONNA ECG W/LEAST 12 LDS I&R ONLY RADIOLOGI 12639 RUSS RUSS C 1 RHEA RHEA EXAMINATI ON CHEST SINGLE VIEW FRONTAL PRTBLE E0431 KAMALJIT MARI GASEOUS 1 HOME HOME O2 SYS MEDICAL MEDICAL RENT; EQUIPME EQUIPME FLWMTR HUMIDFR&M ASK O2 CONC 1 E1390 KAMALJIT MARI DEL PORT 1 HOME HOME 85%/>02 MEDICAL MEDICAL CONC AT EQUIPME EQUIPME PRS FLW RATE RADIOLOGI 91528 [facility] MEDICAL RHEA CHEST 2 IMAGING VIEWS ASS FRONTAL&L ATERAL BASIC 22100 K[place] YOU METABOLIC 1 [facility] PANEL INC INC CALCIUM TOTAL BLOOD 87899 KENY[place]TA YOU COUNT 1 [facility] COMPLETE INC INC AUTO&AUTO DIFRNTL WBC CULTURE 96620 K[place]TA YOU BACTERIAL 1 [facility] BLOOD INC INC AEROBIC W/ID ISOLATES ECG 43886 KEN[place]TA YOU ROUTINE 1 [facility] ECG INC INC W/LEAST 12 LDS TRCG ONLY W/O I&R PRESSURIZ 81653 KENY[place]TA YOU ED/NONPRE 1 [facility] SSURIZED INC INC INHALATIO N TREATMENT ECG 24550 KENYATTA BELLE ROUTINE 1 [facility] W/LEAST P 12 LDS I&R ONLY PRTBLE E0431 KAMALJIT MARI GASEOUS 1 HOME HOME O2 SYS MEDICAL MEDICAL RENT; EQUIPME EQUIPME FLWMTR HUMIDFR&M ASK O2 CONC 1 E1390 KAMALJIT MARI DEL PORT 1 HOME HOME 85%/>02 MEDICAL MEDICAL CONC AT EQUIPME EQUIPME PRSC FLW RATE GROUND A0425 BILLY CERVANTES MILEAGE 1 AMBULANCE AMBULANCE PER SERVICE SERVICE STATUTE MILE ALS A0398 [facility] CERVANTES ROUTINE 1 AMBULANCE AMBULANCE DISPOSABL SERVICE SERVICE E SUPPLIES AMB A0422 BILLY CERVANTES OXYGEN&O2 1 AMBULANCE AMBULANCE SUPPLIES SERVICE SERVICE LIFE SUSTAININ G SITUATION ECG 54468 NILSA SILVERIO ROUTINE 1 EMERGENCY III CHRYSTAL ECG SERVICES W/LEAST 12 LDS I&R ONLY RADIOLOGI 84116 [facility] TAVERARUSS C 1 MEDICAL RHEA EXAMINATI IMAGING ON CHEST ASS SINGLE VIEW FRONTAL AMB A0427 [facility]ILLY CERVANTES SERVICE 1 AMBULANCE AMBULANCE ALS SERVICE SERVICE EMERGENCY TRANSPORT LEVEL 1 PRTBLE E0431 KAMALJIT MARI GASEOUS 1 HOME HOME O2 SYS MEDICAL MEDICAL RENT; EQUIPME EQUIPME FLWMTR HUMIDFR&M ASK O2 CONC 1 E1390 KAMALJIT MARI DEL PORT 1 HOME HOME 85%/>02 MEDICAL MEDICAL CONC AT EQUIPME EQUIPME PRSC FLW RATE O2 CONC 1 E1390 KAMALJIT SEVILLARELL DEL PORT 1 HOME HOME 85%/>02 MEDICAL MEDICAL CONC AT EQUIPME EQUIPME PRSC FLW RATE PRTBLE E0431 KAMALJIT MARI GASEOUS 1 HOME HOME O2 SYS MEDICAL MEDICAL RENT; EQUIPME EQUIPME FLWMTR HUMIDFR&M [facility] 20284 [facility] DISCHAR[facility] 1 NATHANIEL DAY MED CTR MANAGEMEN T > 30 MIN SBSQ 75615 [facility] 1 NATHANIEL CARE/DAY MED CTR 25 MINUTES SBSQ 49407 [facility] 1 NATHANIEL CARE/DAY MED CTR [address] [facility] ROUTINE 1 NATHANIEL GAR ECG W/LEAST PHYSICIAN 12 LDS S I&R ONLY ECG [address] [facility] ROUTINE 1 NATHANIEL GAR ECG W/LEAST PHYSICIAN 12 LDS S I&R ONLY ECHO [address]26 [facility] R-T 1 NATHANIEL TORIBIO 2D W/WOM-MOD PHYSICIAN E COMPL S SPEC&COLR D INITIAL 19807 [facility] 1 NATHANIEL CARE/DAY MED CTR 70 MINUTES AMB A0422 FIRE DEPT FIRE DEPT OXYGEN&O2 1 OF OF SUPPLIES NAFISA SKELTON LIFE DAYTO DAYTO SUSTAININ G SITUATION ALS A0398 FIRE DEPT FIRE DEPT ROUTINE 1 OF OF DISPOSABL NAFISA SKELTON E DAYTO DAYTO SUPPLIES GROUND A0425 FIRE DEPT FIRE DEPT MILEAGE 1 OF OF PER NAFISA SKELTON STATUTE DAYTO DAYTO MILE RADIOLOGI 11154 RADIOLOGY VIANEY C EXAM 1 TUS CHEST 2 ASSOCIATE VIEWS S PSC FRONTAL&L ATERAL ECG 61859 DIAGNOSTI BOB ROUTINE 1 C GAR ECG CARDIOLOG W/LEAST ISTS INC 12 LDS I&R ONLY AMB A0427 FIRE DEPT FIRE DEPT SERVICE 1 OF OF ALS NAFISA SKELTON EMERGENCY DAYTO DAYTO TRANSPORT LEVEL 1 PRTBLE E0431 KAMALJITRACHEL SEVILLARELL GASEOUS 1 HOME MED HOME MED O2 SYS EQUIP. L [facility] L [facility] O2 CONC 1 E1390 [facility] HOME MED HOME MED 85%/>02 EQUIP. L EQUIP. L CONC AT [facility] FLW RATE O2 CONC 1 E1390 KAMALJIT SEVILLARELL DEL PORT 1 HOME MED HOME MED 85%/>02 EQUIP. L EQUIP. L CONC AT [facility] FLW RATE PRTBLE E0431 KAMALJIT SEVILLARELL GASEOUS 1 HOME MED HOME MED O2 SYS EQUIP. L EQUIP. L RENT; FLWMTR HUMIDFR&M ASK PRTBLE E0431 KAMALJIT KAMALJIT GASEOUS 1 HOME MED HOME MED O2 SYS EQUIP. L EQUIP. L RENT; FLWINR HUMIDFR&M ASK O2 CONC 1 E1390 KAMALJIT SEVILLARELL DEL PORT 1 HOME MED HOME MED 85%/>02 EQUIP. L EQUIP. L CONC AT [facility] FLW RATE GROUND A0425 FIRE DEPT FIRE DEPT MILEAGE 1 OF OF PER NAFISA SKELTON STATUTE DAYTO DAYTO MILE BLOOD [address] COUNT 1 NATHANIEL CANTUTH COMPLETE FT FT AUTO&AUTO BOBBY ROSALES DIFRNTL WBC THER [address] PROPH/DX 1 NATHANIEL ARMSTRONG NJX EA FT FT SEQL IV BOBBY ROSALES PUSH SBST/DRUG FAC BASIC [address] METABOLIC 1 NATHANIEL LOPEZBETH PANEL FT FT [place] [address] TROPONIN 1 NATHANIEL ARMSTRONG QUANTITAT FT FT CARLOS BOBBY ROSALES ALS A0398 FIRE DEPT FIRE DEPT ROUTINE 1 OF OF DISPOSABL NAFISA SKELTON E DAYTO DAYTO SUPPLIES AMB A0422 FIRE DEPT FIRE DEPT OXYGEN&O2 1 OF OF SUPPLIES NAFISA SKELTON LIFE DAYTO DAYTO SUSTAININ G SITUATION THER [address] PROPH/DX 1 NATHANIEL CANTUTH NJX IV FT FT PUSH BOBBY ROSALES SINGLE/1S T SBST/DRUG ECG [address] ROUTINE 1 NATHANIEL NATHANIEL ECG FT FT W/LEAST BOBBY ROSALES 12 LDS TRCG ONLY W/O I&R NATRIURET [address] IC 1 NATHANIEL NATHANIEL PEPTIDE FT FT BOBBY ROSALES THERAPEUT [address] IC 1 NATHANIEL NATHANIEL INJECTION FT FT IV PUSH BOBBY ROSALES EACH NEW DRUG ECG 25112 DIAGNOSTI MCDANNOLD ROUTINE 1 C PEG ECG CARDIOLOG W/LEAST ISTS INC 12 LDS I&R ONLY AMB A0427 FIRE DEPT FIRE DEPT SERVICE 1 OF OF JAIDEN SKELTON EMERGENCY DAYTO DAYTO TRANSPORT LEVEL 1 RADIOLOGI 92573 RADIOLOGY FUNMI C 1 CHR EXAMINATI ASSOCIATE ON CHEST S PSC SINGLE VIEW FRONTAL PRTBLE E0431 KAMALJIT KAMALJIT GASEOUS 1 HOME MED HOME MED O2 SYS EQUIP. L EQUIP. L RENT; FLWMTR HUMIDFR&M ASK O2 CONC 1 E1390 KAMALJIT MARTINEZ PORT 1 HOME MED HOME MED 85%/>02 EQUIP. L EQUIP. L CONC AT [facility] FLW RATE O2 CONC 1 E1390 KAMALJIT MARI DEL PORT 1 HOME MED HOME MED 85%/>02 EQUIP. L EQUIP. L CONC AT [facility] FLW RATE PRTBLE E0431 KAMALJIT MARI GASEOUS 1 HOME MED HOME MED O2 SYS EQUIP. L EQUIP. L RENT; FLWMTR HUMIDFR&M ASK PRTBLE E0431 KAMALJIT MARI GASEOUS 1 HOME MED HOME MED O2 SYS EQUIP. L EQUIP. L RENT; FLMTR HUMIDFR&M ASK O2 CONC 1 E1390 KAMALJIT MARI [facility] PORT 1 HOME MED HOME MED 85%/>02 EQUIP. L EQUIP. L CONC AT [facility] [address] [facility] 1 [facility] DAY MED CTR MANAGEMEN T 30 MIN/< SBSQ 05824 [facility] 1 [facility] CARE/DAY MED CTR 25 MINUTES ECG 55498 DIAGNOSTI MCDANNOLD ROUTINE 1 C PEG ECG CARDIOLOG W/LEAST ISTS INC 12 LDS I&R ONLY ECG 36785 DIAGNOSTI MCDANNOLD ROUTINE 1 C PEG ECG CARDIOLOG W/LEAST ISTS INC 12 LDS I&R ONLY ALS A0398 FIRE DEPT FIRE DEPT ROUTINE 1 OF OF DISPOSABL NAFISA SKELTON E DAYTO DAYTO SUPPLIES GROUND A0425 FIRE DEPT FIRE DEPT MILEAGE 1 OF OF PER [place] [address] RADIOLOGY DARDINGER ANGIOGRAP 1 MICAH HY CHEST ASSOCIATE W/CONTRAS S PSC T/NONCONT RAST AMB A0427 FIRE DEPT FIRE DEPT SERVICE 1 OF OF ALS NAFISA SKELTON EMERGENCY DAYTO DAYTO TRANSPORT LEVEL 1 RADIOLOGI 17502 RADIOLOGY SCHMITTER C 1 MICAH EXAMINATI ASSOCIATE ON CHEST S PSC SINGLE VIEW FRONTAL O2 CONC 1 E1390 KAMALJIT MARI DEL PORT 0 HOME MED HOME MED 85%/>02 EQUIP. L EQUIP. L CONC AT [facility] FLW RATE PRTBLE E0431 KAMALJITRACHEL SEVILLARELL GASEOUS 0 HOME MED HOME MED O2 SYS EQUIP. L EQUIP. L RENT; FL[facility]TR [facility] [address] [facility]EN T > 30 MIN [facility] 23216 [facility] 0 [facility] CARE/DAY MED CTR 25 MINUTES [facility] 96730 [facility] 0 [facility] CARE/DAY MED CTR 25 MINUTES CRITICAL 09482 EMERG[facility]Y [facility] CARE 0 CARE LISA ILL/INJUR PHYS ED [facility] PATIENT INIT 30-74 MIN [facility] A0427 FIRE DEPT FIRE DEPT SERVICE 0 OF OF ALS NAFISA MAYAE EMERGENCY DAYTO DAYTO TRANSPORT LEVEL 1 RADIOLOGI 11475 RADIOLOGY NEILS LEO C 0 EXAMINATI ASSOCIATE ON CHEST S PSC SINGLE VIEW FRONTAL ECG 49270 DIAGNOSTI JAYJAY NIV ROUTINE 0 C ECG CARDIOLOG W/LEAST ISTS INC [facility] ONLY INITIAL 05177 [facility] 0 [facility] CARE/DAY MED CTR 50 MINUTES ALS A0398 FIRE DEPT FIRE DEPT ROUTINE 0 OF OF DISPOSABL FRANCESCOE TARIQUUE E DAYTO DAYTO SUPPLIES AMB A0422 FIRE DEPT FIRE DEPT OXYGEN&O2 0 OF OF SUPPLIES TARIQUUE TARIQUUE LIFE DAYTO DAYTO SUSTAININ G SITUATION GROUND A0425 FIRE DEPT FIRE DEPT MILEAGE 0 OF OF PER FRANCESCOE TARIQUUE STATUTE DAYTO DAYTO MILE O2 CONC 1 E1390 KAMALJITRACHEL MARI DEL PORT 0 HOME MED HOME MED 85%/>02 EQUIP. L EQUIP. L CONC AT [facility] FLW RATE PRTBLE E0431 KAMALJIT SEVILLARELL GASEOUS 0 HOME MED HOME MED O2 SYS EQUIP. L EQUIP. L RENT; [facility] HUMIDFR&M [facility] [address] [facility] DISCHARGE 0 NATHANIEL DAY MED CTR MANAGEMEN T > 30 MIN SBSQ 08614 [facility] 0 NATHANIEL CARE/DAY MED CTR 25 MINUTES RADIOLOGI 94730 RADIOLOGY VIANEY C EXAM 0 TUS CHEST 2 ASSOCIATE VIEWS S PSC FRONTAL&L ATERAL INITIAL 37553 [facility] 0 NATHANIEL CARE/[place] [address] [place] [address] RADIOLOGY RANJIT LIMITED/L 0 MAURO OCALIZED ASSOCIATE FOLLOW UP S PSC STUDY ECG 20486 DIAGNOSTI JAYJAY NIV ROUTINE 0 C ECG CARDIOLOG W/LEAST ISTS INC 12 LDS I&R ONLY ALS A0398 FIRE DEPT FIRE DEPT ROUTINE 0 OF OF DISPOSABL NAFISA MAYAE E DAYTO DAYTO SUPPLIES AMB A0422 FIRE DEPT FIRE DEPT OXYGEN&O2 0 OF OF SUPPLIES NAFISA MAYAE LIFE DAYTO DAYTO SUSTAININ G SITUATION GROUND A0425 FIRE DEPT FIRE DEPT MILEAGE 0 OF OF PER NAFISA SKELTON STATUTE DAYTO DAYTO MILE CRITICAL 93429 [facility] C[facility] 0 CARE ILL/INJUR PHYS ED [facility] PATIENT INIT 30-74 MIN AMB A0427 FIRE DEPT FIRE DEPT SERVICE 0 OF OF ALS NAFISA SKELTON EMERGENCY DAYTO DAYTO TRANSPORT LEVEL 1 RADIOLOGI 30377 RADIOLOGY SURESH BYR C 0 EXAMINATI ASSOCIATE ON CHEST S PSC SINGLE VIEW FRONTAL O2 CONC 1 E1390 KAMALJIT MARI DEL PORT 0 HOME MED HOME MED 85%/>02 EQUIP. L EQUIP. L CONC AT [facility] FLW RATE PRTBLE E0431 KAMALJIT KAMALJIT GASEOUS 0 HOME MED HOME MED O2 SYS EQUIP. L EQUIP. L RENT; [facility] HUMIDFR&M ASK PRTBLE E0431 KAMALJIT KAMALJIT GASEOUS 0 HOME MED HOME MED O2 SYS EQUIP. L EQUIP. L RENT; [facility] HUMIDFR&M ASK O2 CONC 1 E1390 KAMALJIT KAMALJIT DEL PORT 0 HOME MED HOME MED 85%/>02 EQUIP. L EQUIP. L CONC AT [facility] RATE O2 CONC 1 E1390 KAMALJIT KAMALJIT DEL PORT 0 HOME MED HOME MED 85%/>02 EQUIP. L [facility]IP. L [facility] E0431 KAMALJIT KAMALJIT GASEOUS 0 HOME MED HOME MED O2 SYS EQUIP. L EQUIP. L RENT; [facility] HUMIDFR&M ASK PRTBLE E0431 KAMALJIT KAMALJIT GASEOUS 0 HOME MED HOME MED O2 SYS EQUIP. EQUIP. RENT; [facility] HUMIDFR&M ASK O2 CONC 1 E1390 KAMALJIT KAMALJIT DEL PORT 0 HOME MED HOME MED 85%/>02 EQUIP. EQUIP. CONC AT [facility] RATE O2 CONC 1 E1390 KAMALJIT KAMALJIT DEL PORT 0 HOME MED HOME MED 85%/>02 EQUIP. EQUIP. CONC AT [facility] PR[facility] E0431 KAMALJIT KAMALJIT GASEOUS 0 HOME MED HOME MED O2 SYS EQUIP. EQUIP. RENT; [facility] HUMIDFR&M ASK PRTBLE E0431 KAMALJIT KAMALJIT GASEOUS 0 HOME MED HOME MED O2 SYS EQUIP. EQUIP. RENT; [facility] HUMIDFR&M ASK O2 CONC 1 E1390 KAMALJIT KAMALJIT DEL [place] 0 HOME MED HOME MED 85%/>02 EQUIP. EQUIP. CONC AT [facility] O[facility] CONC 1 E1390 KAMALJIT KAMALJIT DEL [place] 0 HOME MED HOME MED 85%/>02 EQUIP. EQUIP. CONC AT [facility] PRTBLE E0431 KAMALJIT KAMALJIT GASEOUS 0 HOME MED HOME MED O2 SYS EQUIP. EQUIP. RENT; [facility] HUMIDFR&M ASK PRTBLE E0431 KAMALJIT KAMALJIT GASEOUS 0 HOME MED HOME MED O2 SYS EQUIP. EQUIP. RENT; [facility] HUMIDFR&M ASK O2 CONC 1 E1390 KAMALJIT KAMALJIT DEL PORT 0 HOME MED HOME MED 85%/>02 EQUIP. EQUIP. CONC AT [facility] FLW RATE CATARACT [address] [facility], REMOVAL 0 I EYE [facility] 53538 INDEPENDE HIPOL[facility], A EYE 0 NT ALAM LENS ANESTHESI SURGERY OLOGIST CATARACT 53592 [facility], REMOVAL 0 I EYE [facility] 77238 INDEPENDE [place], A EYE 0 NT FAVIOLA LENS ANESTHESI J SURGERY OLOGIST OPH BMTRY [address]11 [facility], PRTL 0 I EYE [facility] J [facility] INTRFRMTR Y IO LENS PWR JAIRON OPHTH [address] 9 I EYE [facility] COMPRHNSV ESTAB PT 1/> HOSPITAL [address] PATIENT [facility] DISCHARGE 9 [facility] DAY PHYS MANAGEMEN T 30 MIN/< INITIAL 39551 PATIENT [place] [address] [facility] CARE/DAY PHYS 70 MINUTES RHYTHM 25416 EMERGENCY HERFEL, ECG 1-3 9 CARE AGUILAR U LEADS PHYS INTERPRET [place] ECG [address] CHUCKY TRIANA 9 C NIVA ECG CARDIOLOG W/LEAST ISTS INC 12 LDS I&R ONLY RADIOLOGI 22047 RADIOLOGY MICHELLE C 9 ROBERT Shea EXAMINATI ASSOCIATE ON CHEST S PSC [facility] FRONTAL [facility] [address] PATIENT [facility], DISCHARGE 9 FIRST [place] DAY PHYS MANAGEMEN T 30 MIN/< RADIOLOGI 55425 RADIOLOGY LAIB, C EXAM 9 KO H CHEST 2 ASSOCIATE VIEWS S PSC FRONTAL&L ATERAL SBSQ [address] CARE/DAY PHYS 25 MINUTES SBSQ [id number] PAT[address] CARE/DAY PHYS 25 MINUTES SBSQ [address] CARE/DAY PHYS 25 MINUTES SBSQ 29444 [facility]IENT [facility] 9 FIRST [place] C CARE/DAY PHYS 25 MINUTES INITIAL 89371 PATIENT [place] [address] [facility] [place] CARE/DAY PHYS 50 MINUTES AMB A0422 [facility] OXYGEN&O2 9 CO FIRE CO FIRE SUPPLIES PROTECTIO PROTECTIO LIFE N DIST #1 N DIST #1 SUSTAININ G SITUATION AMBULANCE A0429 [facility] SERVICE 9 CO FIRE CO FIRE BLS PROTECTIO PROTECTIO EMERGENCY N DIST #1 N DIST #1 TRANSPORT GROUND A0425 [facility] MILEAGE 9 CO FIRE CO FIRE PER PROTECTIO PROTECTIO STATUTE N DIST #1 N DIST #1 MILE ECG 51347 DIAGNOS[address]LE RO, ROUTINE 9 C NIVA ECG CARDIOLOG W/LEAST ISTS INC 12 LDS I&R ONLY RADIOLOGI 56775 RADIOLOGY Olegario FOX 9 PALLAVI DELGADO ASSOCIATE ON CHEST S PSC SING[facility] V[facility] [address] PATIENT [facility] [place] 9 [place] DAY PHYS MANAGEMEN T 30 MIN/< SBSQ 16193 PATIENT [place] [address] [facility] [place] CARE/DAY PHYS 25 MINUTES SBSQ [address] C CARE/DAY PHYS 25 MINUTES SBSQ [id number] PATIENT [place] [address] [facility] [place] CARE/DAY PHYS 25 MINUTES ECG 16206 DIAGNOSTI SUKUMAROLD ROUTINE 9 C , TATE J ECG CARDIOLOG W/LEAST ISTS INC 12 LDS I&R ONLY ECG 59313 DIAGNOSTI YOBANYANNOLD ROUTINE 9 C , TATE J ECG CARDIOLOG W/LEAST ISTS INC 12 LDS I&R ONLY INITIAL 64570 PATIENT [place] [address] [facility] [place] CARE/DAY PHYS 50 MINUTES RHYTHM 40877 EMERGENCY JUAN ANTONIO, ECG 1-3 9 CARE MIMI D LEADS PHYS INTERPRET [place] REPRT ON ALS A0398 [facility] ROUTINE 9 CO FIRE CO FIRE DISPOSABL PROTECTIO PROTECTIO E N DIST #1 N DIST #1 SUPPLIES GROUND A0425 [facility] MILEAGE 9 CO FIRE CO FIRE PER PROTECTIO PROTECTIO STATUTE N DIST #1 N DIST #1 MILE RADIOLOGI 33545 RADIOLOGY Olegario STONE EXAM 9 CHEST 2 ASSOCIATE NATHANIEL VIEWS S PSC A FRONTAL&L ATERAL AMB A0427 [facility] SERVICE 9 CO FIRE CO FIRE ALS PROTECTIO PROTECTIO EMERGENCY N DIST #1 N DIST #1 TRANSPORT LEVEL 1 OPHTH 89039 JIMBO ALEGRIA, MEDICAL 9 VISION CARLA M XM&EVAL COMPRE NEW PT 1/> VST LIPID 84923 [facility] PANEL 9 [facility] INC HEPATIC 92794 [facility] FUNCTION 9 [facility] PANEL INC INC BASIC 46742 [facility] METABOLIC 9 [facility] PANEL INC INC [facility] 84939 [facility] DISCHARGE 9 JR, J V JR, J V DAY MANAGEMEN T 30 MIN/< SBSQ 75763 [facility] 9 JR, J V JR, J V CARE/DAY 15 MINUTES SBSQ 46230 [facility] 9 JR, J V JR, J V CARE/DAY 25 MINUTES AMB A0427 [facility] SERVICE 9 AMBULANCE AMBULANCE ALS SERVICE SERVICE EMERGENCY TRANSPORT LEVEL 1 RADIOLOGI 22384 Olegario MOLINA 9 MEDICAL CAROL EXAMINATI IMAGING ON CHEST ASSOCIATE SINGLE S VIEW FRONTAL INITIAL 79383 [facility] 9 JR, J V JR, J V CARE/DAY 50 MINUTES AMB A0422 [facility] OXYGEN&O2 9 AMBULANCE AMBULANCE SUPPLIES SERVICE SERVICE LIFE SUSTAININ G SITUATION GROUND A0425 [facility] MILEAGE 9 AMBULANCE AMBULANCE PER SERVICE SERVICE STATUTE MILE ECG 87212 KENYATTA ADAMS, ROUTINE 9 [facility] W/LEAST PROF SERV 12 LDS I&R ONLY OBSERVATI 41200 Claudia MITCHELL ON CARE 9 LUIS ALBERTO Melvin DISCHARGE PSC MANAGEMEN T INITIAL 77694 Claudia MITCHELL OBSERVATI 9 LUIS ALBERTO Melvin ON PSC CARE/DAY 50 MINUTES ECG 17307 KENYATTA BELLE ROUTINE 9 [facility] F W/LEAST PROF SERV 12 LDS I&R ONLY GROUND A0425 BILLY CERVANTES MILEAGE 9 AMBULANCE AMBULANCE PER SERVICE SERVICE STATUTE MILE AMB A0422 BILLY CERVANTES OXYGEN&O2 9 AMBULANCE AMBULANCE SUPPLIES SERVICE SERVICE LIFE SUSTAININ G SITUATION AMB A0427 BILLY CERVANTES SERVICE 9 AMBULANCE AMBULANCE ALS SERVICE SERVICE EMERGENCY TRANSPORT LEVEL 1 RADIOLOGI 93154 LISETTEChandra Olegario SOLANO 9 MEDICAL CAROL EXAMINATI IMAGING ON CHEST ASSOCIATE SINGLE S VIEW FRONTAL AMB A0427 BILLY CERVANTES SERVICE 9 AMBULANCE AMBULANCE ALS SERVICE SERVICE EMERGENCY TRANSPORT LEVEL 1 AMB A0422 BILLY CERVANTES OXYGEN&O2 9 AMBULANCE AMBULANCE SUPPLIES SERVICE SERVICE LIFE SUSTAININ G SITUATION GROUND A0425 BILLY CERVANTES MILEAGE 9 AMBULANCE AMBULANCE PER SERVICE SERVICE STATUTE MILE RADIOLOGI 25301 ERIC Olegario BHANDARI EXAM 9 MEDICAL GEORGE P CHEST 2 IMAGING VIEWS ASSOCIATE FRONTAL&L S ATERAL BLOOD 46565 KENYATTA YOU COUNT 9 [facility] COMPLETE INC INC AUTO&AUTO DIFRNTL WBC COMPREHEN 08038 KENYATTA YOU SIVE 9 [facility] METABOLIC INC INC PANEL BLOOD 95980 KENYATTA YOU GASES ANY 9 [facility] INC INC COMBINATI ON PH PCO2 PO2 CO2 HCO3 ECG 72075 KENYATTA YOU ROUTINE 8 [facility] ECG INC INC W/LEAST 12 LDS TRCG ONLY W/O I&R PRESSURIZ 64544 KENYATTA YOU ED/NONPRE 8 [facility] SSURIZED INC INC INHALATIO N TREATMENT ECG 06020 KENYATTA LUQUESON, ROUTINE 8 [facility] W/LEAST PROF SERV 12 LDS I&R ONLY IV NFUS 65062 KENYATTA YOU THER 8 [facility] PROPH/DX INC INC EA HR RHYTHM 54166 KENYATTA YOU ECG 1-3 8 [facility] LEADS INC INC TRACING ONLY W/O I&R CREATINE 32606 KENYATTA YOU KINASE MB 8 [facility] FRACTION INC INC ONLY PRESSURIZ 58086 KENYATTA YOU ED/NONPRE 8 [facility] SSURIZED INC INC INHALATIO N TREATMENT NATRIURET 53070 KENYATTA YOU IC 8 [facility] PEPTIDE INC INC CREATINE 16641 KENYATTA YOU KINASE 8 [facility] TOTAL INC INC BLOOD 38948 KENYATTA YOU COUNT 8 [facility] COMPLETE INC INC AUTO&AUTO DIFRNTL WBC BASIC 19135 KENYATTA YOU METABOLIC 8 [facility] [place] [address] KENYATTA YOU TROPONIN 8 [facility] [place] [address] KENYATTA YOU THER 8 [facility] PROPH/DX INC INC 1ST >1 HR RADIOLOGI 98740 KENYATTA YOU C 8 [facility] EXAMINATI INC INC ON CHEST SINGLE VIEW FRONTAL GROUND A0425 LINDA LINDA MILEAGE 8 CO CO PER AMBULANCE AMBULANCE STATUTE SERVICE SERVICE MILE AMBULANCE A0429 LINDA LINDA SERVICE 8 CO CO BLS AMBULANCE AMBULANCE EMERGENCY SERVICE SERVICE TRANSPORT BLS A0382 LINDA LINDA ROUTINE 8 CO CO DISPOSABL AMBULANCE AMBULANCE E SERVICE SERVICE [facility] 57324 [facility] 8 Jamee SANTOYO JR J Silke DAY MANAGEMEN T 30 MIN/< SBSQ 40734 [facility] 8 Jamee SANTOYO JR, J V CARE/DAY 15 MINUTES SBSQ 81988 [facility] 8 Jamee SANTOYO JR J Silke CARE/DAY 15 MINUTES SBSQ [address] E CARE/DAY EMD 25 MINUTES SBSQ [address] E CARE/DAY EMD 25 MINUTES SBSQ [address] E CARE/DAY EMD 25 MINUTES AMB A0427 [facility] 8 AMBULANCE AMBULANCE ALS SERVICE SERVICE EMERGENCY TRANSPORT LEVEL [address] E CARE/DAY EMD 50 MINUTES GROUND A0425 [facility] MILEAGE 8 AMBULANCE AMBULANCE PER SERVICE SERVICE STATUTE MILE AMB A0422 [facility] OXYGEN&O2 8 AMBULANCE AMBULANCE SUPPLIES SERVICE SERVICE LIFE SUSTAININ G SITUATION RADIOLOGI 29159 Olegario REYES EXAM 8 MEDICAL GEORGE P CHEST 2 IMAGING VIEWS ASSOCIATE FRONTAL&L S ATERAL AMBULANCE A0429 LINDA LINDA SERVICE 8 CO CO BLS AMBULANCE AMBULANCE EMERGENCY SERVICE SERVICE TRANSPORT GROUND A0425 LINDA LINDA MILEAGE 8 CO CO PER AMBULANCE AMBULANCE [place] [address] [facility] TROPONIN [address] [place] [address] QUANTITAT [facility] CARLOS BASIC 29361 [facility] METABOLIC [address] [place] [address] PANEL [facility] CALCIUM TOTAL BLOOD 81909 [facility] COUNT [address] [place] [address] COMPLETE [facility] AUTO&AUTO DIFRNTL WBC AMB A0422 LINDA LINDA OXYGEN&O2 8 CO CO SUPPLIES AMBULANCE AMBULANCE LIFE SERVICE SERVICE SUSTAININ G SITUATION FIBRIN 18221 [facility] DGRADJ [address] [place] [address] PRODUCTS [facility] D-DIMER ULTRASENS ITIVE ECG 39219 [facility] ROUTINE [address] [place] [address] ECG [facility] W/LEAST 12 LDS TRCG ONLY W/O I&R THER 43155 [facility] ST KE PROPH/DX [address] [place] [address] NJX IV [facility] PUSH 1ST SBST/DRUG THER 75724 [facility] PROPH/DX [address] [place], [place] [address]X EA [facility] SEQL IV PUSH SBST/DRUG RADIOLOGI 08121 RADIOLOGY Olegario [place] 8 ALMA DELGADO ASSOCIATE ON CHEST S PSC [place]IEW [facility] [address]14 PATIENT [facility], DISCHARGE 8 FIRST CASSANDRA G DAY PHYS MANAGEMEN T 30 MIN/< SBSQ 87437 PATIENT [place] [address] [facility] [place] CARE/DAY PHYS 15 MINUTES INITIAL 97417 PATIENT [facility] 8 [facility] [place] CARE/DAY PHYS 50 MINUTES DOPPLER 64687 CARDIOLOG GARCIA, ECHOCARD 8 Y SHELBI D PULSE ASSOCIATE WAVE S W/SPECTRA L DISPLAY ECHO 13832 CARDIOLOG GARCIA, TRANSTHOR 8 Y SHELBI D AC R-T 2D ASSOCIATE W/WO S M-MODE REC COMP ECG 33412 DIAGNOSTI BOB, ROUTINE 8 C FAUSTINO ECG CARDIOLOG W/LEAST ISTS INC 12 LDS I&R ONLY GROUND A0425 LINDA LINDA MILEAGE 8 CO CO PER AMBULANCE AMBULANCE STATUTE SERVICE SERVICE MILE BLS A0382 LINDA LINDA ROUTINE 8 CO CO DISPOSABL AMBULANCE AMBULANCE E SERVICE SERVICE SUPPLIES RADIOLOGI 32413 RADIOLOGY NEMARKEL, C EXAM 8 NOEMY W CHEST 2 ASSOCIATE VIEWS S PSC FRONTAL&L ATERAL AMBULANCE A0429 LINDA LINDA SERVICE 8 CO CO BLS AMBULANCE AMBULANCE EMERGENCY SERVICE SERVICE TRANSPORT AMBULANCE A0429 LINDA LINDA SERVICE 8 CO CO BLS AMBULANCE AMBULANCE EMERGENCY SERVICE SERVICE TRANSPORT RADIOLOGI 85606 RADIOLOGY SUSANR, C EXAM 8 AXEL M CHEST 2 ASSOCIATE VIEWS S PSC FRONTAL&L ATERAL BASIC 98305 [facility] METABOLIC [address] [place] [address] PANEL [facility] [place] [address] [facility] TROPONIN [address] [place] [address] QUANTITAT [facility] CARLOS BLOOD 11014 [facility] COUNT [address] [place] [address] COMPLETE [facility] AUTOMATED GROUND A0425 LINDA LINDA MILEAGE 8 CO CO PER AMBULANCE AMBULANCE STATUTE SERVICE SERVICE MILE ECG 25140 DEJON WIHTING ROUTINE 8 C , TATE J ECG CARDIOLOG W/LEAST ISTS INC 12 LDS I&R ONLY THER 64955 [facility] ST [place] PROPH/DX [address] [place] [address] NJX IV [facility] PUSH 1ST SBST/DRUG ECG 64302 [facility] ROUTINE [address] [place] [address] ECG [facility] W/LEAST 12 LDS TRCG ONLY W/O I&R LIPID 03440 PATIENT KALFAS, PANEL 8 [facility] [place] C PHYS BASIC 15198 PATIENT KALFAS, METABOLIC 8 [facility] [place] C PANEL PHYS CALCIUM TOTAL BASIC 13538 KENYATTANAEL YOU METABOLIC 8 [facility] PANEL INC INC CALCIUM TOTAL AMBULANCE A0429 LINDA LINDA SERVICE 8 CO CO BLS AMBULANCE AMBULANCE EMERGENCY SERVICE SERVICE TRANSPORT BLS A0382 LINDA LINDA ROUTINE 8 CO CO DISPOSABL AMBULANCE AMBULANCE E SERVICE SERVICE SUPPLIES BLOOD 01753 KENYATTA YOU COUNT 8 [facility] COMPLETE INC INC AUTO&[place] [address] KENYATTA YOU TROPONIN 8 [facility] QUANTITAT INC INC CARLOS GROUND A0425 LINDA HUGHESON MILEAGE 8 CO CO PER AMBULANCE AMBULANCE STATUTE SERVICE SERVICE MILE ECG 46909 KENYATTA YOU ROUTINE 8 [facility] ECG INC INC W/LEAST 12 LDS TRCG ONLY W/O I&R CREATINE 61465 KENYATTA YOU KINASE 8 [facility] TOTAL INC INC PRESSURIZ 25653 KENYATTA YOU ED/NONPRE 8 [facility] SSURIZED INC INC INHALATIO N TREATMENT CREATINE 58766 KENYATTA YOU KINASE MB 8 [facility] FRACTION INC INC ONLY ECG 15387 KENYATTA ADAMS, ROUTINE 8 [facility] W/LEAST PROF SERV 12 LDS I&R ONLY RADIOLOGI 43579 KENYATTA YOU C 8 [facility] EXAMINATI INC INC ON CHEST SING[place] VIEW [facility] [address]22 [facility] DISCHARGE 8 Jamee SANTOYO JR, J V DAY MANAGEMEN T 30 MIN/< SBSQ 21779 [facility] 8 Jamee SANTOYO JR J Silke CARE/DAY 25 MINUTES INITIAL 06923 [facility] 8 Jamee SANTOYO JR J Silke CARE/DAY 50 MINUTES RADIOLOGI 39301 Olegario REYES EXAM 8 MEDICAL GEORGE P CHEST 2 IMAGING VIEWS ASSOCIATE FRONTAL&L S ATERAL ECG 72225 KENYATTA BELLE ROUTINE 8 [facility]LL W/LEAST PROF SERV 12 LDS I&R ONLY INITIAL 16134 GHADA URRUTIA OBSERVATI 8 JR, J V JR, J V ON CARE/DAY 50 MINUTES BLS A0382 LINDA LINDA ROUTINE 8 CO CO DISPOSABL AMBULANCE AMBULANCE E SERVICE SERVICE SUPPLIES AMBULANCE A0429 LINDA LINDA SERVICE 8 CO CO BLS AMBULANCE AMBULANCE EMERGENCY SERVICE SERVICE TRANSPORT GROUND A0425 LINDA LINDA MILEAGE 8 CO CO PER AMBULANCE AMBULANCE STATUTE SERVICE SERVICE [facility] 28597 EMILY EMILY, DISCHARGE 8 [facility] E DAY EMD MANAGEMEN T 30 MIN/< RADIOLOGI 83503 Olegario REYES EXAM 8 MEDICAL GEORGE P CHEST 2 IMAGING VIEWS ASSOCIATE FRONTAL&L S ATERAL SBSQ [address] E CARE/DAY EMD 25 MINUTES SBSQ [address] E CARE/DAY EMD 25 MINUTES ECG 18015 KENYATTA DIAZ, ROUTINE [address] [place] [address] W/LEAST PROF SERV 12 LDS I&R ONLY SBSQ [address] E CARE/DAY EMD 25 MINUTES SBSQ [address] E CARE/DAY EMD 25 MINUTES RADIOLOGI 29322 Olegario MOLINA 8 MEDICAL CAROL EXAMINATI IMAGING ON CHEST ASSOCIATE SINGLE S VIEW FRONTAL ECG 78113 KENYATTA DIAZ, ROUTINE [address] [place] [address] W/LEAST PROF SERV 12 LDS I&R ONLY BLS A0382 LINDA LINDA ROUTINE 8 CO CO DISPOSABL AMBULANCE AMBULANCE E SERVICE SERVICE SUPPLIES GROUND A0425 LINDA LINDA MILEAGE 8 CO CO PER AMBULANCE AMBULANCE STATUTE SERVICE SERVICE MILE AMBULANCE A0429 LINDA LINDA SERVICE 8 CO CO BLS AMBULANCE AMBULANCE EMERGENCY SERVICE SERVICE TRANSPORT INITIAL [address] CARE/DAY EMD 50 MINUTES CLOSED 33.26 Carol [PERCUTAN Russ EOUS] [NEEDLE] [facility]OPSY [facility]UNG Encounters Encounter Start End Date Code Location Performer Type Date EMERGENCY 68750 CURTIS GARCIA DEPT 7 7 PHYSICIAN U VISIT S, [facility] HIGH SEVERITY& THREAT FUNCJ EMERGENCY 69829 KENYATTA 7 7 [facility] DEPARTMEN [facility] T VISIT HIGH/URGE NT SEVERITY HOSPITAL KENYATTA - 7 7 [facility] OUTPATIEN [facility] KENYATTA - 7 7 [facility] INPATIENT [facility] EMERGENCY 35741 CURTIS ARAUZ DEPT 7 7 PHYSICIAN VISIT S, [facility] HIGH SEVERITY& THREAT [facility]J EMERGENCY 59727 KENYATTA DEPT 6 6 [facility] VISIT INC HIGH SEVERITY& THREAT [facility] K[facility] - 6 6 [facility] OUTPATIEN [facility] KENYATTA - 6 6 [facility] OUTPATIEN [facility] EMERGENCY 88819 KENYATTA 6 6 [facility] DEPARTMEN [facility] T VISIT HIGH/URGE NT SEVERITY EMERGENCY 68166 KENYATTA DEPT 6 6 [facility] VISIT [facility] HIGH SEVERITY& THREAT [facility] KENYATTA - 6 6 [facility] OUTPATIEN [facility] OFFICE 34277 [facility] OUTPATIEN 6 6 NATHANIEL N T VISIT MED CTR [address] - 6 6 NATHANIEL OUTPATIEN [facility] OFFICE 927[address] [facility] RO NIV OUTPATIEN 6 6 NATHANIEL T VISIT 25 PHYSICIAN MINUTES S OFFICE 85280 [facility] 6 NATHANIEL T VISIT 25 PHYSICIAN MINUTES S OFFICE [address] [facility] 6 6 NATHANIEL T VISIT 25 PHYSICIAN MINUTES S OFFICE 93979 [facility] OUT[facility] 6 6 NATHANIEL YEAR LAT T VISIT 15 PHYSICIAN MINUTES S OFFICE 06[address] ST [facility] OUTPATIEN 5 5 NATHANIEL ALDAIR T VISIT 15 PHYSICIAN [facility]ES [facility] 5 [facility]EL [facility] - 5 5 NATHANIEL OUTPATIEN [facility] - 5 5 [facility] - 4 4 [facility] - 4 4 NATHANIEL INPATIENT [facility] - 4 4 [facility] 3 3 [facility] T 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 - [facility] 3 3 [facility] - 3 3 NATHANIEL OUTPATIEN [facility] OFFICE 56652 OUTPATIEN 3 3 NATHANIEL T VISIT 5 FT MINUTES BOBBY OFFICE 71802 [facility] OUTPATIEN 3 3 T VISIT 15 MINUTES OFFICE 56455 MAYNOR MCGUIRE OUTPATIEN 3 3 JAM JAM T VISIT [address] [facility] ST - 3 3 NATHANIEL OUTPATIEN [facility]ICAL [facility] CENTER OFFICE 83355 [facility] OUTPATIEN 3 3 YEAR LAT YEAR LAT T VISIT 25 MINUTES OFFICE 79428 LEANDRARESHMA MOBLEY OUTPATIEN 3 3 N JORDYN N JORDYN T VISIT 15 MINUTES HOSPITAL [facility]ILDRENS - OTHER 3 3 [facility] ST - 3 3 NATHANIEL OUTPATIEN FT T [facility] ST - 3 3 NATHANIEL OUTPATIEN FT T [facility] OFFICE 00584 ST OUTPATIEN 3 3 NATHANIEL T VISIT 5 FT MINUTES [facility] OFF[facility] 34696 LEANDRA MOBLEY OUTPATIEN 3 3 N JORDYN N JORDYN T VISIT 15 MINUTES OFFICE 63744 [facility] OUTPATIEN 3 3 JOSE MANUELI M MATIAS M T VISIT 15 MINUTES OFFICE 02785 LEANDRA MOBLEY OUTPATIEN 3 3 N JORDYN N JORDYN T VISIT [address] - 3 3 NATHANIEL OUTPATIEN FT T [facility] OFFICE 82053 LEANDRA MOBLEY OUTPATIEN 3 3 N JORDYN N JORDYN T VISIT 25 MINUTES OFFICE 08477 [facility] OUTPATIEN 3 3 YEAR LAT T NEW 30 MINUTES OFFICE 54563 LEANDRA MOBLEY OUTPATIEN 3 3 N JORDYN N JORDYN T VISIT 25 MINUTES OFFICE 74477 LEANDRA MOBLEY OUTPATIEN 3 3 N JORDYN N JORDYN T VISIT 25 MINUTES OFFICE 78314 LEANDRA MOBLEY OUTPATIEN 3 3 N JORDYN N JORDYN T VISIT [address] [facility] 3 3 NATHANIELANDRÉS NDIAYE ION NEW/ESTAB PHYSICIAN PATIENT S [address] OUTPATIEN 3 3 NATHANIEL T VISIT 5 FT MINUTES [facility] ST - 3 3 NATHANIEL OUTPATIEN FT T BOBBY OFFICE 96056 SHO SHAH OUTPATIEN 3 3 T NEW 45 MINUTES OFFICE 13590 LEANDRA MOBLEY OUTPATIEN 3 3 N JORDYN N JORDYN T NEW 60 MINUTES HOSPITAL K[facility]TA - 3 3 [facility] OUTPATIEN INC T OFFICE 41366 [facility] OUTPATIEN 3 3 Uriel JONNY DEN T VISIT 15 MINUTES OFFICE 64540 BARBRA BELLE OUTPATIEN 3 3 JR CHRYSTAL JARRELL T VISIT 15 MINUTES OFFICE 96749 [facility] OUTPATIEN 3 3 JONNY DEN T NEW 45 MINUTES Inpatient IMP Kenyatta ADAMS ([place]) 3 09:16 3 15:22 [facility] KENYATTA - 3 3 [facility] OUTPATIEN INC T HOSPITAL K[facility]YATTA - 3 3 [facility] OUTPATIEN INC T Inpatient IMP Kenyatta Adams (IN) 3 10:40 3 10:15 [facility] KENYATTA - 3 3 [facility] INPATIENT INC OFFICE 90498 BARBRA BELLE OUTPATIEN 2 2 JR CHRYSTAL JARRELL T VISIT 15 MINUTES EMERGENCY 59686 NILSA CHAVEZ DEPT 2 2 EMERGENCY VISIT SERVICES HIGH SEVERITY& THREAT [facility] KENYATTA - 2 2 [facility] OUTPATIEN INC T OFFICE 10997 WHANG NIDA WHLEYDI NIDA CONSULTAT 2 2 ION NEW/ESTAB PATIENT 60 MIN OFFICE 74346 BRYAN ADAMS OUTPATIEN 2 2 MAURO MAURO T VISIT 25 MINUTES HOSPITAL [facility] - 2 2 [facility] OUTPATIEN INC T OFFICE 77289 BESSON BESSON OUTPATIEN 2 2 MAURO MAURO T VISIT 25 MINUTES HOSPITAL K[place] - 2 2 [facility] OUTPATIEN INC T OFFICE 60711 BESSON BESSON OUTPATIEN 2 2 MAURO MAURO T VISIT 15 MINUTES HOSPITAL K[place] - 2 2 [facility] OUTPATIEN INC T OFFICE 16423 BESSON BESSON OUTPATIEN 2 2 MAURO MAURO T VISIT 25 MINUTES OFFICE 14095 MCKEMIE MCKEMIE OUTPATIEN 2 2 JR CHRYSTAL JR CHRYSTAL T VISIT 15 MINUTES HOSPITAL K[facility] - 2 2 [facility] OUTPATIEN [facility] KENYATTA - 2 2 [facility] INPATIENT INC EMERGENCY 98784 HEBER BUCK DEPT 1 1 [facility] D[facility] VISIT HIGH SEVERITY& THREAT [facility] KENYATTA - 1 1 [facility] INPATIENT INC EMERGENCY 34696 KENYATTA 1 1 [facility] T VISIT LOW/MODER SEVERITY [facility] KENYATTA - 1 1 [facility] OUTPATIEN [facility] EMERGENCY 98993 NILSA SILVERIO DEPT 1 1 EMERGENCY III CHRYSTAL VISIT SERVICES HIGH SEVERITY& THREAT [facility] ST - 1 1 NATHANIEL INPATIENT [facility] EMERGENCY 88710 EMERGENCY JEAN-CLAUDE DEPT 1 1 CARE CESAR VISIT PHYS HIGH NORTHERN SEVERITY& THREAT [facility] ST - 1 1 NATHANIEL OUTPATIEN [facility] EMERGENCY 22837 EMERGENCY JEAN-CLAUDE DEPT 1 1 CARE CESAR VISIT PHYS HIGH [facility] SEVERITY& THREAT [facility] OFFICE 64741 [facility] OUTPATIEN 1 1 NATHANIEL NIDA T VISIT 25 PHYSICIAN MINUTES S EMERGENCY 29067 EMERGENCY JUAN ANTONIO DEPT 1 1 CARE MARCIN VISIT PHYS HIGH [facility]THERN SEVERITY& THREAT [facility] OFFICE 04674 MOJGAN HERRMANNPATIEN 0 0 NATHANIEL MARTEIAN T VISIT 25 PHYSICIAN MINUTES S OFFICE 51062 MOJGAN HERRMANNPATIEN 0 0 NATHANIEL ALDEN T VISIT 15 PHYSICIAN MINUTES S OFFICE 11702 MOJGAN HERRMANNPATIEN 0 0 NATHANIEL [place] T VISIT 25 PHYSICIAN MINUTES S OFFICE 58681 [facility] 45 INSTITUTE MINUTES OFFICE 38627 PATIENT VENKATESH LACEY 9 9 [facility] [place] T VISIT PHYS 25 MINUTES EMERGENCY 31031 EMERGENCY MELO DEPT 9 9 CARE AGUILAR U VISIT PHYS HIGH [place] SE[place]& [place] THREAT [facility] 9 9 HOSPITAL INPATIENT [facility] OFFICE 34653 PATIENT VENKATESH LACEY 9 9 [facility] [place] T VISIT PHYS 25 MINUTES EMERGENCY 30206 EMERGENCY SEJAL, DEPT 9 9 CARE ERNST VISIT PHYS HIGH [place]& [place] THREAT [facility] EMERGENCY 54962 EMERGENCY JUAN ANTONIO DEPT 9 9 CARE MIMI D VISIT PHYS HIGH [place]& [place] THRE[place] [facility] KENYATTA - 9 9 [facility] OUTPATIEN [facility] KENYATTA - 9 9 [facility] INPATIENT INC EMERGENCY 09825 NILSA BUCK DEPT 9 9 EMERGENCY CASSANDRA S VISIT SERVICES HIGH SEVERITY& ASSOCIATE THREAT S [facility] KENYATTA - 9 9 [facility] INPATIENT INC EMERGENCY 69656 NILSA BUCK DEPT 9 9 EMERGENCY CASSANDRA S VISIT SERVICES HIGH SEVERITY& ASSOCIATE THREAT S [facility] OFFICE 26013 GHADA URRUTIA [facility] 9 9 Jamee SANTOYO JR, J V T VISIT 15 MINUTES OFFICE 46733 GHADA URRUTIA [facility] 9 Jamee SANTOYO JR, Jamee Edouard T VISIT 15 MINUTES EMERGENCY 61034 K[facility] 9 9 [facility] T VISIT MODERATE SEVERITY EMERGENCY 99632 CAMILO MERCADO, DEPT 9 9 NATIONAL KRYSTAL VISIT CORPORATI O HIGH ON SEVERITY& THREAT [facility] KENYATTA - 9 9 [facility] 19945 [place] 8 8 [facility] T VISIT HIGH/URGE NT SEVERITY HOSPITAL K[facility]TA - 8 8 [facility] K[place]TA [facility] 8 8 [facility] INPATIENT [facility] EMERGENCY 62831 EMERGENCY FLOR[place], DEPT 8 8 CARE EDJUSTICE L VISIT PHYS HIGH [place] SE[place]& [place] THREAT [facility] [place] [id number] 8 [facility] EMERGENC[facility] [address] [facility] 8 8 [facility] VISIT HIGH/URGE NT SEVERITY EMERGENCY [id number] EMERGENCY TYRELL, DEPT 8 8 CARE CASSANDRA VISIT PHYS HIGH [place] SE[place]& [place] THREAT [facility] EMERGENCY [id number] EMERGENCY MORALES, DEPT 8 8 CARE RADAMES L VISIT PHYS HIGH [place]& [place] [facility] EMERGENCY [address] [facility] DEPT 8 8 HOSPITAL VISIT EAST HIGH SEVERITY& [facility]REAT [facility] [place] [id number] 8 [facility] OFFICE [id number] PATIENT [facility] 8 8 FIRST CASSAN[place] G T NEW 45 PHYS MINUTES EMERGENCY [id number] [place] 8 [facility] [place] VIS[facility] MODERATE [facility]VERITY [facility] [place] 8 [facility] OUTPATIEN [facility] [place] - Mian 8 [facility] T EMERGENCY [id number] [place] 8 8 [facility] [place] [facility] LIMITED/M INOR PROB EMERGENCY 57169 Mian OGDEN 8 [facility] T [facility]ISIT PROF SERV LOW/MODER SEVERITY [facility] [place] - 8 8 [facility] INPATIENT [facility] [place] - Mian 8 [facility]
--- OUTSIDE RECORDS SUMMARY | 2017-03-12 11:38 | External Medical Summary Rpt ---
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 32 [facility] ti TR 79 6- 7- 00 RE 45 FE ve OP 80 20 20 0 EN 1 R IU 16 09 09 RI M 0 #4 CH BR 28 AE 4 L 0. G 02 % SO LN AL 00 12 12 00 36 30 WA 14 SC Ac BU 48 -0 -1 0. LG 32 [facility] ti TE 79 6- 7- 00 RE 44 FE ve RO 50 20 20 0 EN 5 R L 16 09 09 RI ALEJANDRO 0 #4 CH L 28 AE 2. 4 L 5 G MG /3 ML SO LN MT 00 12 12 00 30 12 WA 14 SC Ac ED 59 -0 -1 .0 LG 32 [place] ti NI 15 6- 7- 00 RE 45 FE ve SO 44 20 20 EN 0 R NE 20 09 09 RI 5 #4 CH 10 28 AE 4 L MG G TA BL ET NA 68 10 12 01 60 30 WA 14 KA Ac MT 46 -1 -1 .0 LG 21 LF ti OX 20 3- 7- 00 RE 44 ve EN 19 20 20 EN 4 00 09 09 RI 50 5 #4 NA 0 28 C MG 4 TA BL ET MT 00 10 12 01 12 3 WA [...] BR 0 #4 IA 28 N 4 MT 00 10 11 00 12 3 WA 14 KA Ac OM 60 -2 -0 0. LG 23 LF ti ET 31 0- 5- 00 RE 42 ve [facility] 58 20 20 0 EN 8 ZI 85 09 09 RI NE 8 #4 NA 28 C VC 4 -C OD EI NE SY RU P 59 10 11 00 8. 16 WA 14 SC Ac 31 -2 -0 50 LG 23 [place] ti 00 0- 5- 0 RE 42 CK ve 57 20 20 EN 5 92 09 09 BR 0 #4 IA 28 N 4 AD 00 10 10 00 60 30 MT 14 KA Ac VA 17 -1 -2 .0 LG 21 LF ti IR 30 3- 2- 00 RE 44 ve 69 20 20 EN 3 25 60 09 09 RI 0- 0 #4 NA 50 28 C 4 DI SK US AV 00 10 10 00 3. 3 MT 14 KA Ac EL 08 -1 -2 00 LG 21 LF ti OX 51 3- 2- 0 RE 43 ve 73 20 20 EN 4 40 30 09 09 RI 0 1 #4 NA MG 28 C 4 TA BL ET XO 63 10 10 00 72 30 MT 14 KA Ac PE 40 -1 -2 .0 LG 21 LF ti NE 20 3- 2- 00 RE 44 ve X 51 20 20 EN 1 1. 32 09 09 RI 25 4 #4 NA 28 C MG 4 /3 ML SO JOANN TI ON MT 00 10 10 00 40 12 MT 14 KA Ac ED 59 -1 -2 .0 LG 21 LF ti NI 15 3- 2- 00 RE 45 ve SO 44 20 20 EN 3 NE 20 09 09 RI 5 #4 NA 10 28 C 4 MG TA BL ET SE 59 10 10 00 15 30 WA 14 KA Ac RT 76 -1 -2 .0 LG 21 LF ti RA 24 3- 2- 00 RE 46 ve LI 91 20 20 EN 0 NE 00 09 09 RI 5 #4 NA HC 28 C L 4 10 0 MG TA BL ET TH 50 10 10 00 60 30 WA 14 KA Ac EO 11 -1 -2 .0 LG 21 LF ti PH 10 3- 2- 00 RE 44 ve YL 48 20 20 EN 6 LI 20 09 09 RI NE 2 #4 NA 28 C ER 4 20 0 MG TA BL ET 00 10 10 00 30 7 WA 14 KA Ac 59 -1 -2 .0 LG 21 LF ti 10 3- 2- 00 RE 44 ve 34 20 20 EN 5 90 09 09 RI 5 #4 NA 28 C 4 NA 68 10 10 00 60 30 WA 14 KA Ac MT 46 -1 -2 .0 LG 21 LF ti OX 20 3- 2- 00 RE 44 ve EN 19 20 20 EN 4 00 09 09 RI 50 5 #4 NA 0 28 C MG 4 TA BL ET IP 00 10 10 00 30 30 WA 14 KA Ac RA 48 -1 -2 0. LG 21 LF ti TR 79 3- 2- 00 RE 43 ve OP 80 20 20 0 EN 9 IU 16 09 09 RI M 0 #4 NA BR 28 C 4 0. 02 % SO LN MT 00 09 09 00 12 3 WA 14 KA Ac OM 60 -0 -2 0. LG 14 LF ti ET 31 9- 4- 00 RE 27 ve [facility] 58 20 20 0 EN 0 ZI 85 09 09 RI NE 8 #4 NA 28 C VC 4 -C OD EI NE SY RU P 59 09 09 00 8. 16 WA 14 KA Ac 31 -0 -2 50 LG 14 LF ti 00 9- 4- 0 RE 27 ve 57 20 20 EN 2 92 09 09 RI 0 #4 NA 28 C 4 SE 59 09 09 00 15 30 WA 14 KA Ac RT 76 -0 -2 .0 LG 14 LF ti RA 24 9- 4- 00 RE 27 ve LI 91 20 20 EN 4 NE 00 09 09 RI 5 #4 NA HC 28 C L 4 10 0 MG TA BL ET AD 00 09 09 00 60 30 WA 14 KA Ac VA 17 -0 -2 .0 LG 14 LF ti IR 30 9- 4- 00 RE 27 ve 69 20 20 EN 1 25 60 09 09 RI 0- 0 #4 NA 50 28 C 4 DI SK US NA 68 09 09 00 60 30 WA 14 KA Ac MT 46 -0 -2 .0 LG 14 LF ti OX 20 9- 4- 00 RE 27 ve EN 19 20 20 EN 3 00 09 09 RI 50 5 #4 NA 0 28 C MG 4 TA BL ET 00 09 09 00 30 7 WA 14 KA Ac 59 -0 -2 .0 LG 14 LF ti 10 9- 4- 00 RE 26 ve 34 20 20 EN 8 90 09 09 RI 5 #4 NA 28 C 4 MT 00 09 09 00 20 15 WA 14 KA Ac ED 59 -0 -2 .0 LG 14 LF ti NI 15 9- 4- 00 RE 26 ve SO 44 20 20 EN 7 NE 30 09 09 RI 5 #4 NA 20 28 C 4 MG TA BL ET MT 00 08 08 00 6. 25 CL 19 CA Ac OV 08 -0 -[address] ti EN 51 5- 7- 0 IC 55 IL ve TI 13 20 20 LO L 20 09 09 PH HF 1 AR JR A MA J 90 CY V MC G IN [facility] LE R MT 00 08 08 00 30 30 CL [...] 00 30 15 CL 19 CA Ac MT 74 -0 -[address] [...] V DI #3 SK 93 US 8 MT 00 09 07 06 6. 25 RI 76 SC Ac OV 08 -1 -3 70 TE 48 [facility] ti EN 51 9- 0- 0 64 FE ve TI 13 20 20 AI R L 20 08 09 D RI HF 1 PH CH A AR AE [...] 31 7- 6- 00 81 IL ve RI 04 20 20 AI LO N 80 09 09 D HC 1 PH JR L AR J 50 M V 0 #3 MG 93 8 TA BL ET MT 00 09 07 05 6. 25 RI 76 SC Ac OV 08 -1 -0 70 TE 48 [facility] ti EN 51 9- 2- 0 64 FE ve TI 13 20 20 AI R L 20 08 09 D RI HF 1 PH CH A AR AE 90 M L #3 G MC 93 G 8 IN [facility] LE R MT 00 09 06 04 6. 25 RI 76 SC Ac OV 08 -1 -0 70 TE 48 [facility] ti EN 51 9- 4- 0 64 FE ve TI 13 20 20 AI R L 20 08 09 D RI HF 1 PH CH A AR AE 90 M L #3 G MC 93 G 8 IN [place] LE R AD 00 07 06 04 60 30 RI 76 SC Ac VA 17 -0 -0 .0 TE 48 [facility] ti IR 30 7- 4- 00 63 FE ve 69 20 20 AI R 25 60 08 09 D RI 0- 0 PH CH 50 AR AE M L DI #3 G SK 93 US 8 AD 00 07 05 03 60 30 RI 76 SC Ac VA 17 -0 -2 .0 TE 48 [facility] ti IR 30 7- 1- 00 63 FE ve 69 20 20 AI R 25 60 08 09 D RI 0- 0 PH CH 50 AR AE M L DI #3 G SK 93 US 8 MT 00 09 05 03 6. 25 RI 76 SC Ac OV 08 -1 -2 70 TE 48 [facility] ti EN 51 9- 1- 0 64 FE ve TI 13 20 20 AI R L 20 08 09 D RI HF 1 PH CH A AR AE 90 M L #3 G MC 93 G 8 IN [place] LE R ME 00 05 05 00 21 6 RI 78 MO Ac TH 60 -0 -2 .0 TE 34 SE ti YL 34 9- 1- 00 42 S ve MT [address] ED 31 [...] AI R 25 60 08 09 D RI 0- 0 PH CH 50 AR AE M L DI #3 G SK 93 US 8 MT 00 09 04 02 6. 25 RI 76 SC Ac OV 08 -1 -0 70 TE 48 [facility] ti EN 51 9- 9- 0 64 FE ve TI 13 20 20 AI R L 20 08 09 D RI HF 1 PH CH A AR AE 90 M L #3 G MC 93 G 8 IN [place] LE R 00 02 02 00 15 30 CL 18 CA Ac 37 -0 -[address] ti 84 7- 6- 00 IC 77 IL ve 18 20 20 LO 80 09 09 PH 1 AR JR MA J CY V MT 00 09 02 01 6. 25 RI 76 SC Ac OV 08 -1 -1 70 TE 48 [facility] ti EN 51 9- 2- 0 64 FE ve TI 13 20 20 AI R L 20 08 09 D RI HF 1 PH CH A AR AE 90 M L #3 G MC 93 G 8 IN [place] LE R AD 00 07 02 01 60 30 RI 76 SC Ac VA 17 -0 -1 .0 TE 48 [place] ti IR 30 7- 2- 00 63 FE ve 69 20 20 AI R 25 60 08 09 D RI 0- 0 PH CH 50 AR AE [...] 34 6- 2- 00 76 N ve MT 59 20 20 AI BA ED 31 09 09 D BA NI 5 PH TU SO AR ND LO M E NE #3 O 4 93 8 MG DO SE PK MT 00 09 01 00 6. 25 RI 76 SC Ac OV 08 -1 -1 70 TE 48 [place] ti EN 51 9- 5- 0 64 FE ve TI 13 20 20 AI R L 20 08 09 D RI HF 1 PH CH A AR AE 90 M L #3 G MC 93 G 8 IN [place] LE R AD 00 07 01 00 60 30 RI 76 SC Ac VA 17 -0 -1 .0 TE 48 [place] ti IR 30 7- 5- 00 63 FE ve 69 20 20 AI R 25 60 08 09 D RI 0- 0 PH CH 50 AR AE [...] AR J M V #3 93 8 MT 00 09 10 01 6. 25 CV 46 SC Ac OV 08 -1 -2 70 S 94 [place] ti EN 51 9- 3- 0 PH 78 FE ve TI 13 20 20 AR R L 20 08 08 MA RI HF 1 CY CH A AE 90 #5 L 43 G MC 7 G IN [place] LE R AD 00 07 10 02 60 30 CV 46 SC Ac VA 17 -0 -2 .0 S 25 [facility] ti IR 30 7- 3- 00 PH 87 FE ve 69 20 20 AR R 25 60 08 08 MA RI 0- 0 CY CH 50 AE #5 [...] 0 AR R 52 08 08 MA RI 6 CY CH AE #5 L 43 G 7 MT 00 09 09 00 63 18 CV 46 SC Ac ED 59 -1 -2 .0 S 94 [facility] ti NI 15 9- 6- 00 PH 76 FE ve SO 44 20 20 AR R NE 20 08 08 MA RI 1 CY CH 10 AE #5 L MG 43 G 7 TA BL ET AV 00 09 09 00 7. 7 CV 46 SC Ac EL 08 -1 -2 00 S 94 [place] ti OX 51 9- 6- 0 PH 75 FE ve 73 20 20 AR R 40 30 08 08 MA RI 0 1 CY CH MG AE #5 L TA 43 G BL 7 ET MT 00 09 09 00 6. 25 CV 46 SC Ac OV 08 -1 -2 70 S 94 [place] ti EN 51 9- 6- 0 PH 78 FE ve TI 13 20 20 AR R L 20 08 08 MA RI HF 1 CY CH A AE 90 #5 L 43 G MC 7 G IN [place] LE R 17 07 09 03 17 20 CV 46 SC Ac 27 -0 -1 .0 S 25 [facility] ti 00 7- 1- 00 PH 86 FE ve 72 20 20 AR R 10 08 08 MA RI 1 CY CH AE #5 L 43 G 7 17 07 08 02 17 20 CV 46 SC Ac 27 -0 -1 .0 S 25 [facility] ti 00 7- 4- 00 PH 86 FE ve 72 20 20 AR R 10 08 08 MA RI 1 CY CH AE #5 L 43 G 7 NI 00 07 08 00 30 30 CV 46 SC Ac 07 -3 -1 .0 S 46 [facility] ti PA 43 1- 4- 00 PH 70 FE ve N 07 20 20 AR R ER 49 08 08 MA RI 0 CY CH 50 AE 0 #5 L MG 43 G 7 TA BL ET TR 60 07 08 01 30 30 CV 46 SC Ac AZ 50 -0 -1 .0 S 25 [facility] ti OD 52 7- 4- 00 PH 88 FE ve ON 65 20 20 AR R E 30 08 08 MA RI 50 1 CY CH AE MG #5 L 43 G TA 7 BL ET AD 00 07 08 01 60 30 CV 46 SC Ac VA 17 -0 -1 .0 S 25 [facility] ti IR 30 7- 4- 00 PH 87 FE ve 69 20 20 AR R 25 60 08 08 MA RI 0- 0 CY CH 50 AE #5 L DI 43 G SK 7 US 17 07 08 01 17 20 CV 46 SC Ac 27 -0 -0 .0 S 25 [facility] ti 00 7- 1- 00 PH 86 FE ve 72 20 20 AR R 10 08 08 MA RI 1 CY CH AE #5 L 43 G 7 17 07 07 00 17 20 CV 46 SC Ac 27 -0 -1 .0 S 25 [facility] ti 00 7- 7- 00 PH 86 FE ve 72 20 20 AR R 10 08 08 MA RI 1 CY CH AE #5 L 43 G 7 TR 60 07 07 00 30 30 CV 46 SC Ac AZ 50 -0 -1 .0 S 25 [facility] ti OD 52 7- 7- 00 PH 88 FE ve ON 65 20 20 AR R E 30 08 08 MA RI 50 1 CY CH AE MG #5 L 43 G TA 7 BL ET AD 00 07 07 00 60 30 CV 46 SC Ac VA 17 -0 -1 .0 S 25 [place] ti IR 30 7- 7- 00 PH 87 FE ve 69 20 20 AR R 25 60 08 08 MA RI 0- 0 CY CH 50 AE #5 L DI 43 G SK 7 US ME 00 07 07 00 21 6 CV 46 GA Ac TH 78 -0 -1 .0 S 20 IN ti YL 15 1- 7- 00 PH 27 EY ve MT 02 20 20 AR ED 20 08 08 MA RI NI 7 CY CH SO AE LO [...] 1 CY bl e #5 43 7 MT 00 01 03 00 30 13 CV [...] 4- 6- 00 IC 80 Av ve MT 00 20 20 ai ED 10 08 [...] O2 SYS RENT; FLWMTR HUMIDFR&M ASK COLLECTIO 84061 [facility] [facility] BLOOD INC INC VENIPUNCT URE PRESSURIZ 50521 [place] YOU ED/NONPRE 7 [facility] SSURIZED INC INC INHALATIO N TREATMENT NONINVASI 12740 [place] [facility] VE 7 [facility] EAR/PULSE INC INC OXIMETRY SINGLE DETER BASIC 13626 [place] YOU METABOLIC 7 [facility] PANEL INC INC CALCIUM TOTAL BLOOD 54738 [place] [facility] COUNT 7 [facility] COMPLETE INC INC AUTO&[facility]O [facility]L [facility] G0378 [place] [facility] OBSERVATI 7 [facility] ON INC INC SERVICE PER HOUR BASIC 30437 [place] YOU METABOLIC 7 [facility] PANEL INC INC CALCIUM TOTAL NONINVASI 56296 [place] YOU VE 7 [facility] EAR/PULSE INC INC OXIMETRY SINGLE DETER THERAPEUT 72979 [place] [facility] IC 7 [facility] INJECTION INC INC IV PUSH EACH NEW DRUG PRESSURIZ 70398 [place] YOU ED/NONPRE 7 [facility] SSURIZED INC INC INHALATIO N TREATMENT THER 88270 [place] YOU PROPH/DX 7 [facility] NJX IV INC INC PUSH SINGLE/1S T SBST/DRUG COLLECTIO 18511 [place] Nova VENOUS 7 [facility] BLOOD INC INC VENIPUNCT URE PRESSURIZ 46033 [place] YOU ED/NONPRE 7 [facility] SSURIZED INC INC INHALATIO N TREATMENT NONINVASI 74983 [place] YOU VE 7 [facility] EAR/PULSE INC INC OXIMETRY SINGLE [facility] G0378 [place] YOU OBSERVATI 7 [facility] ON INC INC SERVICE PER HOUR BLOOD 06113 [place] YOU COUNT 7 [facility] COMPLETE INC INC AUTO&[place] [address] [place] YOU TROPONIN 7 [facility] QUANTITAT INC INC CARLOS PRESSURIZ 18325 [place] YOU ED/NONPRE 7 [facility] SSURIZED INC INC INHALATIO N TREATMENT BLOOD 15083 [place] YOU GASES ANY 7 [facility] INC INC COMBINATI ON PH PCO2 PO2 CO2 HCO3 CREATINE 19403 [place] YOU KINASE 7 [facility] TOTAL INC INC ECG 71295 [place] YOU ROUTINE 7 [facility] ECG INC INC W/LEAST 12 LDS TRCG ONLY W/O I&R COMPREHEN 39472 EKNY[place] YOU SIVE 7 [facility] METABOLIC INC INC PANEL CREATINE 57190 [place] YOU KINASE MB 7 [facility] FRACTION INC INC ONLY ECG 53314 [place] ADAMS ROUTINE 7 [facility] W/LEAST P 12 LDS I&R ONLY RADIOLOGI 76602 [place] [address] MEDICAL EXAMINATI IMAGING ON CHEST ASS SINGLE VIEW FRONTAL PRTBLE E0431 PATIENT PATIENT GASEOUS 7 AIDS INC AIDS INC O2 SYS RENT; FLWMTR HUMIDFR&M ASK O2 CONC 1 E1390 PATIENT PATIENT DEL PORT 7 AIDS INC AIDS INC 85%/>02 CONC AT PRS FLW RATE PHYS G0179 RODNEY ADAMS RE-CERT 7 [facility] MCR-COVR INTERNAL [facility] SRVC RE-CERT [facility] 03892 RODNEY ADAMS DISCHARGE 7 [facility] DAY INTERNAL MANAGEMEN MED T 30 MIN/< SBSQ [address] CARE/DAY INTERNAL 25 MED MINUTES SBSQ [id number] CARE/DAY INTERNAL 25 MED MINUTES ECG 08770 [place] DIZA JR ROUTINE 7 [facility] W/LEAST P 12 LDS I&R ONLY ECG 70724 [place] REBELGEOVANNI ROUTINE 7 [facility] W/LEAST P 12 LDS I&R ONLY RADIOLOGI 09060 [place] [facility] C EXAM 7 MEDICAL CHEST 2 IMAGING VIEWS ASS FRONTAL&L ATERAL O2 CONC 1 E1390 PATIENT PATIENT DEL PORT 7 AIDS INC AIDS INC 85%/>02 CONC AT [facility] FLW RATE PRTBLE E0431 PATIENT PATIENT GASEOUS 7 AIDS INC AIDS INC O2 SYS RENT; FLWMTR HUMIDFR&M ASK COLLECTIO 98769 [facility] VENOUS 7 [facility] BLOOD VENIPUNCT PHYSICIAN NAHID S PRTBLE E0431 PATIENT PATIENT GASEOUS 6 AIDS INC AIDS INC O2 SYS RENT; FLWMTR HUMIDFR&M ASK O2 CONC 1 E1390 PATIENT PATIENT DEL PORT 6 AIDS INC AIDS INC 85%/>02 CONC AT [facility] G0378 [place] YOU OBSERVATI 6 [facility] ON INC INC SERVICE PER HOUR PRESSURIZ 84099 [place] YOU ED/NONPRE 6 [facility] SSURIZED INC INC INHALATIO N TREATMENT NONINVASI 48752 [place] YOU VE 6 [facility] EAR/PULSE INC INC OXIMETRY SINGLE DETER NONINVASI 48457 [place] YOU VE 6 [facility] EAR/PULSE INC INC OXIMETRY SINGLE DETER PRESSURIZ 47961 [place] YOU ED/NONPRE 6 [facility] SSURIZED INC INC INHALATIO N TREATMENT [facility] G0378 [place] YOU OBSERVATI 6 [facility] ON INC INC SERVICE PER [facility] G0378 [place] YOU OBSERVATI 6 [facility] ON INC INC SERVICE PER HOUR BASIC 90698 [place] YOU METABOLIC 6 [facility] PANEL INC INC CALCIUM TOTAL BLOOD 02857 [place] YOU COUNT 6 [facility] COMPLETE INC INC AUTO&AUTO DIFRNTL WBC NONINVASI 31274 [place] YOU VE 6 [facility] EAR/PULSE INC INC OXIMETRY SINGLE DETER PRESSURIZ 99607 [place] YOU ED/NONPRE 6 [facility] SSURIZED INC INC INHALATIO N TREATMENT COLLECTIO 22199 [place] YOU N VENOUS 6 [facility] BLOOD INC INC VENIPUNCT URE COMPREHEN 89453 [place] YOU SIVE 6 [facility] METABOLIC INC INC PANEL ECG 44463 [place] DIAZ JR ROUTINE 6 [facility] W/LEAST P 12 LDS I&R ONLY NATRIURET 64461 [place] YOU IC 6 [facility] PEPTIDE INC INC BLOOD 01235 [place] YOU GASES ANY 6 [facility] INC INC COMBINATI ON PH PCO2 PO2 CO2 HCO3 THERAPEUT 92054 [place] YOU IC 6 [facility] INJECTION [place] [address] [place] YOU INFUSION 6 [facility] THERAPY/P INC INC ROPHYLAXI S /DX 1ST TO 1 HR CREATINE 96545 [place] YOU KINASE 6 [facility] TOTAL INC INC CREATINE 36485 K[place] YOU KINASE MB 6 [facility] FRACTION INC INC ONLY ECG 13589 [place] YOU ROUTINE 6 [facility] ECG INC INC W/LEAST 12 LDS TRCG ONLY W/O I&[place] [address] [place] YOU LACTATE 6 [facility] INC INC BLOOD 02814 [place] YOU COUNT 6 [facility] COMPLETE INC INC AUTO&[place] [address] [place] YOU TROPONIN 6 [facility] QUANTITAT INC INC [facility] G0378 [facility] YOU OBSERVATI 6 [facility] ON INC INC SERVICE PER HOUR RADIOLOGI 99374 [facility] EXAM 6 MEDICAL CHEST 2 IMAGING VIEWS ASS FRONTAL&L ATERAL CULTURE 05669 [place] YOU BACTERIAL 6 [facility] BLOOD INC INC AEROBIC W/ID ISOLATES BLOOD 24666 [place] YOU COUNT 6 [facility] COMPLETE INC INC AUTO&[place] [address] [place] YOU LACTATE 6 [facility] INC INC THER 64422 K[place] YOU PROPH/DX 6 [facility] NJX IV INC INC PUSH SINGLE/1S T SBST/DRUG THERAPEUT 90276 [place] YOU IC 6 [facility] INJECTION INC INC IV PUSH EACH NEW DRUG PRESSURIZ 11596 [place] YOU ED/NONPRE 6 [facility] SSURIZED INC INC INHALATIO N TREATMENT COMPREHEN 99831 [place] YOU SIVE 6 [facility] METABOLIC INC INC PANEL RADIOLOGI 59095 [facility] C 6 MEDICAL EXAMINATI IMAGING ON CHEST ASS SINGLE VIEW FRONTAL PRTBLE E0431 PATIENT PATIENT GASEOUS 6 AIDS INC AIDS INC O2 SYS RENT; FLWMTR HUMIDFR&M ASK O2 CONC 1 E1390 PATIENT PATIENT DEL PORT 6 AIDS INC AIDS INC 85%/>02 CONC AT PRSC FLW RATE BLOOD 70993 [place] YOU COUNT 6 [facility] COMPLETE INC INC AUTO&[facility]O [facility]L [facility] G0378 [place] YOU OBSERVATI 6 [facility] ON INC INC SERVICE PER HOUR COLLECTIO 13551 [facility] YOU N VENOUS 6 [facility] BLOOD INC INC VENIPUNCT URE COMPREHEN 13338 [place] YOU SIVE 6 [facility] METABOLIC INC INC PANEL PRESSURIZ 85765 [place] YOU ED/NONPRE 6 [facility] SSURIZED INC INC INHALATIO N TREATMENT GLUC BLD 18563 [place] YOU GLUC MNTR 6 [facility] DEV INC INC CLEARED FDA SPEC HOME USE NONINVASI 23851 [place] YOU VE 6 [facility] EAR/PULSE INC INC OXIMETRY SINGLE DETER NONINVASI 43372 [place] YOU VE 6 [facility] EAR/PULSE INC INC OXIMETRY SINGLE DETER GLUC BLD 24145 [place] YOU GLUC MNTR 6 [facility] DEV INC INC CLEARED FDA SPEC HOME USE PRESSURIZ 69961 [place] YOU ED/NONPRE 6 [facility] SSURIZED INC INC INHALATIO N TREATMENT [facility] G0378 [place] YOU OBSERVATI 6 [facility] ON INC INC SERV[facility] G0378 [place] YOU OBSERVATI 6 [facility] ON INC INC SERVICE PER HOUR CULTURE 30299 [place] YOU BACTERIAL 6 [facility] BLOOD INC INC AEROBIC W/ID ISOLATES BLOOD 61501 [place] YOU COUNT 6 [facility] COMPLETE INC INC AUTO&[place] [address] [place] YOU TROPONIN 6 [facility] QUANTITAT INC INC CARLOS PRESSURIZ 26183 [place] YOU ED/NONPRE 6 [facility] SSURIZED INC INC INHALATIO N TREATMENT GLUC BLD 89585 [place] YOU GLUC MNTR 6 [facility] DEV INC INC CLEARED FDA SPEC HOME USE NONINVASI 07351 [place] YOU VE 6 [facility] EAR/PULSE [place] [address] [place] YOU INFUSION 6 [facility] THERAPY/P INC INC ROPHYLAXI S /DX 1ST TO 1 HR THERAPEUT 37941 [place] YOU IC 6 [facility] INJECTION INC INC IV PUSH EACH NEW DRUG INITIAL 23614 [facility] FRYMAN OBSERVATI 6 PHYSICIAN EUG ON S GROUP CARE/DAY 50 [place] [address] [facility] LACTATE 6 [facility] INC INC CREATINE 19140 [facility] KINASE 6 [facility] TOTAL INC INC ECG 81900 [facility] ROUTINE 6 [facility] ECG INC INC W/LEAST 12 LDS TRCG ONLY W/O I&R CREATINE 11062 [facility] KINASE MB 6 [facility] FRACTION INC INC ONLY COMPREHEN 28159 [facility] MÉNDEZON SIVE 6 [facility] METABOLIC INC INC PANEL ECG 60979 [facility] DIAZ JR ROUTINE 6 [facility] W/LEAST P 12 LDS I&R ONLY RADIOLOGI 27657 [facility] C 6 [facility] MEM [...] O2 SYS RENT; [facility]WMTR HUMIDFR&M ASK RADEX 28052 RADIOLOGY LUBBERS HIPS 6 BILATERAL ASSOCIATE WITH S OF NOTH PELVIS 2 VIEWS RADEX 22481 RADIOLOGY HURST SPINE 6 LUMBOSACR ASSOCIATE AL 2/3 S OF NOTH VIEWS RADEX 06238 ST SPINE 6 [facility] LUMBOSACR [...] 85%/>02 CONC AT PRSC FLW RATE ANES 42799 ANESTHESI BAKER LOLA UPPER GI 6 A GROUP ENDOSCOPY [place] [address] MED CTR GROSS&DIONNA ROSCOPIC EXAM SBSQ [address] CARE/DAY 25 PHYSICIAN MINUTES S INITIAL [address] CARE/DAY 50 PHYSICIAN MINUTES S SBSQ [address] CARE/DAY 25 PHYSICIAN MINUTES S SBSQ [address] CARE/DAY 25 PHYSICIAN MINUTES S SBSQ [address] CARE/DAY 25 PHYSICIAN MINUTES S SBSQ [address] CARE/DAY 25 PHYSICIAN MINUTES S SBSQ [address] CARE/DAY 25 PHYSICIAN MINUTES S INITIAL [address] CARE/DAY [address] [place] [address] RADIOLOGY JAMISON ANGIOGRAP 6 JORDYN HY CHEST ASSOCIATE W/CONTRAS S OF [facility] T/NONCONT RAST RADIOLOGI 63713 RADIOLOGY DOERGER C 6 EXAMINATI ASSOCIATE ON CHEST S OF [facility] SINGLE VIEW FRONTAL O2 CONC 1 E1390 PATIENT PATIENT DEL PORT 6 AIDS INC AIDS INC 85%/>02 CONC AT PRSC FLW RATE PRTBLE E0431 PATIENT PATIENT GASEOUS 6 AIDS INC AIDS INC O2 SYS RENT; [facility]WM[facility] [address] MANAGEMEN PHYSICIAN T 30 S MIN/< SBSQ [address] CARE/DAY 25 PHYSICIAN MINUTES S SBSQ [address] CARE/DAY [address] [place] [address] RADIOLOGY [facility] CERVICAL 6 DOT SPINE W/O ASSOCIATE CONTRAST S OF [facility] MATERIAL MYOCARDIA [address] [facility] BERNICE L SPECT 6 [facility] PHYSICIAN S CV STRS 66998 [facility] TST 6 [place] TORIBIO XERS&/OR RX CONT PHYSICIAN ECG I&R S ONLY CV STRS 76153 [facility] TST 6 [place] TORIBIO XERS&/OR RX CONT PHYSICIAN ECG W/O S I&R INITIAL [address]/DAY 50 PHYSICIAN MINUTES S SBSQ [address]/DAY 25 PHYSICIAN MINUTES S SBSQ [address]/DAY 25 PHYSICIAN MINUTES S INITIAL [address]/DAY 50 PHYSICIAN MINUTES S O2 CONC [...] O2 SYS RENT; [facility] [address] [facility] 5 NATHANIEL NATHANIEL DAY MANAGEMEN PHYSICIAN PHYSICIAN T 30 S S MIN/< DUP-SCAN 71495 [facility] XTR VEINS 5 [facility] COMPLETE MED CTR BILATERAL STUDY O2 CONC [...] CONC AT PRSC FLW RATE CT THORAX 25894 [facility] 5 NATHANIEL NATHANIEL W/CONTRAS FT FT T [facility] MATERIAL O2 CONC 1 E1390 PATIENT PATIENT [...] 85%/>02 CONC AT PRSC FLW RATE PLETHYSMO [address] [facility] GRAPHY 5 NATHANIEL YEAR LAT LUNG VOLUMES PHYSICIAN W/WO S AIRWAY RESIST BRNCDILAT [address] [facility] RSPSE 5 NATHANIEL YEAR LAT SPMTRY PRE&POST- [place] [address] [facility] DIFFUSING 5 NATHANIEL YEAR LAT CAPACITY [facility] [address] RO NIV DISCHARGE 5 NATHANIEL DAY MANAGEMEN PHYSICIAN T 30 S MIN/< SEAT E0156 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 5 [facility] E0143 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 FOLDING 5 [facility] E/FIXED HEIGHT CT THORAX 41030 RADIOLOGY LUBBERS 5 KAROLYN W/CONTRAS ASSOCIATE T S OF NOTH MATERIAL RADEX 23058 RADIOLOGY HURST BERNICE SHOULDER 5 COMPLETE ASSOCIATE MINIMUM 2 S OF NOTH VIEWS BRNCDILAT [address] [facility] RSPSE 4 NATHANIEL IRF SPMTRY MED CTR PRE&[place] [address] ST BUDHANI DIFFUSING 4 NATHANIEL IRF CAPACITY MED CTR PLETHYSMO 23952 [facility] GR[facility] 4 NATHANIEL IRF LUNG MED CTR VOLUMES W/WO AIRWAY RESIST CT THORAX 50550 RADIOLOGY HURST BERNICE 4 W/CONTRAS ASSOCIATE T S OF NOTH MATERIAL CT THORAX [address] 4 NATHANIEL NATHANIEL W/CONTRAS FT FT T [facility] 23405 BOB BOB DISCHARGE 4 DAY MANAGEMEN T 30 MIN/< RADIOLOGI 25140 ADRIANA Melvin 4 MAURO EXAMINATI ON CHEST SINGLE VIEW FRONTAL CT THORAX 05636 RANJIT Salazar MAURO MAURO W/CONTRAS T MATERIAL [...] O2 SYS RENT; FLWMTR HUMIDFR&M ASK COMPREHEN [address] SIVE 3 [facility] METABOLIC MED CTR MED CTR PANEL LOCKSTITCHER ST LOCKSTITCHER ST LIPID [address] PANEL 3 [facility] MED CTR MED CTR [address]OCK[address] BLOOD [address] COUNT 3 [facility] COMPLETE MED CTR MED CTR AUTO&AUTO LOCKSTITCHER [address] [address] THYROID 3 [facility] STIMULATI MED CTR MED CTR NG LOCKSTITCHER ST LOCKSTITCHER ST HORMONE TSH O2 CONC 1 E1390 [...] INC INC [place] REGION 9 REGION 9 [facility] AREA/OT SYS BLOOD 44897 [facility] COUNT 3 N JORDYN N JORDYN COMPLETE AUTO&AUTO DIFRNTL WBC COMPREHEN [address] METABOLIC MEDICAL MEDICAL PANEL C C PRTBLE E0431 PATIENT PATIENT GASEOUS 3 AIDS INC AIDS INC O2 SYS RENT; FLWMTR HUMIDFR&M ASK O2 CONC 1 E1390 PATIENT PATIENT DEL PORT 3 AIDS INC AIDS INC 85%/>02 CONC AT PRSC FLW RATE RADEX [address] SPINE 3 NATHANIEL NATHANIEL LUMBOSACR FT FT AL 2/3 BOBBY BOBBY VIEWS PRTBLE E0431 PATIENT PATIENT GASEOUS 3 AIDS INC AIDS INC O2 SYS RENT; FLWMTR HUMIDFR&M ASK PET 13439 [facility] [address] ATTENUATI [...] 85%/>02 CONC AT PRSC FLW RATE BLOOD 46911 [facility] COUNT 3 N JORDYN N JORDYN COMPLETE AUTO&AUTO DIFRNTL WBC COMPREHEN [address] METABOLIC MEDICAL MEDICAL PANEL C C LOCM Q9967 ST ST 300-399 3 NATHANIEL NATHANIEL MG/ML FT FT IODINE BOBBY ROSALES CONCENTRA TION PER ML CT THORAX 55303 FUNMI FUNMI 3 CHR CHR W/CONTRAS T MATERIAL O2 CONC 1 E1390 PATIENT PATIENT DEL PORT 3 AIDS INC AIDS INC 85%/>02 CONC AT PRSC FLW RATE PRTBLE E0431 PATIENT PATIENT GASEOUS 3 AIDS INC AIDS INC O2 SYS RENT; FLWMTR HUMIDFR&M ASK RADJ DLVR [address] 3/> 3 NATHANIEL NATHANIEL AREAS FT FT CUSTOM BOBBY BOBBY BLKING 11-19MEV BLOOD 60850 [facility] COUNT 3 N JORDYN N JORDYN COMPLETE AUTO&AUTO DIFRNTL WBC O2 CONC 1 E1390 PATIENT PATIENT DEL PORT 3 AIDS INC AIDS INC 85%/>02 CONC AT [facility] FLW RATE PRTBLE E0431 PATIENT PATIENT GASEOUS 3 AIDS INC AIDS INC O2 SYS RENT; FLWMTR HUMIDFR&M ASK RADJ DLVR [address] 3/> 3 [facility] FT FT CUSTOM BOBBY BOBBY BLKING 11-19MEV RADJ DLVR [address] 3/> 3 [facility] FT FT CUSTOM BOBBY BOBBY BLKING 11-19MEV CONTINUIN 49636 [facility] MEDICAL 3 [facility] PHYSICS FT FT CONSLTJ BOBBY [place]OBBY [place] RADJ DLVR [address] 3/> 3 [facility] FT FT CUSTOM BOBBY BOBBY BLKING 11-19MEV RADJ DLVR [address] 3/> 3 [facility] FT FT CUSTOM BOBBY BOBBY BLKING 11-19MEV RADIATION 06433 SHO SHAH BERKOWITZ PRA 3 TREATMENT MANAGEMEN T 5 TREATMENT S THERAPEUT [address] ST IC 3 [facility] RADIOLOGY FT FT PORT BOBBY BOBBY IMAGES(S) RADJ DLVR [address] 3/> 3 [facility] AREAS FT FT CUSTOM BOBBY BOBBY BLKING 11-19MEV BLOOD 35732 [facility] 3 MATIAS M MATIAS M COMPLETE AUTO&AUTO DIFRNTL WBC RADJ DLVR [address] 3/> 3 [facility] FT FT CUSTOM BOBYB BOBBY BLKING 11-19MEV CONTINUIN 83985 [facility] 3 [facility] PHYSICS FT FT CONSLTJ BOBBY [place]OBBY [place] RADJ DLVR [address] 3/> 3 NATHANIEL NATHANIEL AREAS FT FT CUSTOM BOBBY BOBBY BLKING 11-19MEV RADJ DLVR [address] 3/> 3 NATHANIEL NATHANIEL AREAS FT FT CUSTOM BOBBY BOBBY BLKING 11-19MEV RADJ DLVR [address] 3/> 3 NATHANIEL NATHANIEL AREAS FT FT CUSTOM BOBBY BOBBY BLKING 11-MEV THERAPEUT [address] IC 3 NATHANIEL NATHANIEL RADIOLOGY FT FT PORT BOBBY BOBBY IMAGES(S) RADIATION 13534 BERKOWITZ PRA BERKOWITZ PRA 3 TREATMENT MANAGEMEN T 5 TREATMENT S RADJ DLVR [address] 3/> 3 NATHANIEL NATHANIEL AREAS FT FT CUSTOM BOBBY BOBBY BLKING 11-19MEV BLOOD 71760 LEANDRA MOBLEY COUNT 3 N JORDYN COBB COMPLETE AUTO&AUTO DIFRNTL WBC COMPREHEN 59434 LEANDRA MOBLEY SIVE 3 N JORDYN N JORDYN METABOLIC PANEL CONTINUIN 170[address] ST [address] G MEDICAL 3 NATHANIEL NATHANIEL PHYSICS FT FT CONSLTJ BOBBY BOBBY MT WK RADJ DLVR [address] 3/> 3 NATHANIEL NATHANIEL AREAS FT FT CUSTOM BOBBY BOBBY BLKING 11-19[place] IV [address] LEANDRA MOBLEY INFUSION 3 N JODRYN COBB THER PROPH ADDL SEQUENTIA L TO 1 HR CHEMOTX 45018 LEANDRA MOBLEY [place]MN [place] 3 N JORDYN [...] DEXAMETHO SONE SODIUM PHOSPHATE 1 MG CHEMOTX 18854 LEANDRA MOBLEY [place]MN IV 3 N JORDYN COBB NFS TQ UP 1 HR SBST/DRUG INJECTION J2405 LEANDRA MOBLEY 3 N JORDYN N JORDYN ONDANSETR ON HCL PER 1 MG INJECTION J9265 LEANDRA MOBLEY 3 N JORDYN N JORDYN PACLITAXE L 30 MG RADJ DLVR [address] 3/> 3 NATHANIEL NATHANIEL AREAS FT FT CUSTOM BOBBY BOBBY BLKING 11-19MEV RADJ DLVR [address] 3/> 3 NATHANIEL NATHANIEL AREAS FT FT CUSTOM BOBBY BOBBY BLKING 11-19MEV RADJ DLVR [address] 3/> 3 NATHANIEL NATHANIEL AREAS FT FT CUSTOM BOBBY BOBBY BLKING 11-19MEV RADIATION 43465 SHO SHAH BERKOWITZ PRA 3 TREATMENT MANAGEMEN T 5 TREATMENT S THERAPEUT [address] IC 3 [facility] RADIOLOGY FT FT PORT BOBBY BOBBY IMAGES(S) RADJ DLVR [address] 3/> 3 NATHANIEL NATHANIEL AREAS FT FT CUSTOM BOBBY BOBBY BLKING 11-19MEV CONTINUIN [address] G MEDICAL 3 [facility] PHYSICS FT FT CONSLTJ BOBBY [place]OBBY [place] RADJ DLVR [address] 3/> 3 NATHANIEL NATHANIEL AREAS FT FT CUSTOM BOBBY BOBBY BLKING 11-19MEV COMPREHEN 46324 LEANDRA MOBLEY SIVE 3 N JORDYN N JORDYN METABOLIC PANEL BLOOD 68042 LEANDRA MOBLEY COUNT 3 N JORDYN N JORDYN COMPLETE AUTO&AUTO DIFRNTL WBC INJECTION J9045 LEANDRA MOBLEY 3 N JORDYN N JORDYN CARBOPLAT IN 50 MG PLETHYSMO 28213 [facility] GRAPHY 3 YEAR LAT YEAR LAT LUNG VOLUMES W/WO AIRWAY RESIST BRNCDILAT 57387 [facility]OWN[facility] RSPSE 3 YEAR LAT YEAR LAT SPMTRY PRE&[place] [address] [facility]OWN[facility] DIFFUSING 3 YEAR LAT YEAR LAT CAPACITY RADIATION 71202 SHO SHAH 3 TREATMENT MANAGEMEN T 5 TREATMENT S COMPREHEN 37608 LEANDRA MOBLEY SIVE 3 [place] [address] LEANDRA MOBLEY INFUSION 3 N JORDYN N JORDYN THER PROPH ADDL SEQUENTIA L TO 1 HR CHEMOTX 34372 LEANDRA MOBLEY ADMN IV 3 N JORDYN N JORDYN NFS TQ EA SEQL NFS TO 1 HR BLOOD 11998 LEANDRA SAID BEL COUNT 3 N JORDYN COMPLETE AUTO&AUTO DIFRNTL WBC INJECTION J9045 LEANDRA MOBLEY 3 N JORDYN N JORDYN CARBOPLAT IN 50 MG INJECTION J9265 LEANDRA MOBLEY 3 N JORDYN N JORDYN PACLITAXE L 30 MG CHEMOTX 54345 LEANDRA MOBLEY ADMN IV 3 N JORDYN [...] RAMINE HCL UP TO 50 MG RADIATION 42692 SHO SHAH 3 TREATMENT MANAGEMEN T 5 TREATMENT S PRTBLE E0431 KAMALJIT MARI GASEOUS 3 HOME HOME O2 SYS MEDICAL MEDICAL RENT; EQUIPME EQUIPME FLWMTR HUMIDFR&M ASK O2 CONC 1 E1390 KAMALJIT MARI DEL PORT 3 HOME HOME 85%/>02 MEDICAL MEDICAL CONC AT EQUIPME EQUIPME PRSC FLW RATE BLOOD 24406 LEANDRA MASSEYE COUNT 3 N JORDYN JR CHRYSTAL COMPLETE AUTO&AUTO DIFRNTL WBC CHEMOTX 47970 LEANDRA MOBLEY ADMN IV 3 N JORDYN N JORDYN NFS TQ EA SEQL NFS TO 1 [place] [address] LEANDRA MOBLEY INFUSION 3 N JORDYN N JORDYN THER PROPH ADDL SEQUENTIA L TO 1 HR COMPREHEN 68295 LEANDRA MOBLEY SIVE 3 N JORDYN N [...] RANITIDIN E HYDROCHLO RIDE 25 MG CHEMOTX 37580 LEANDRA MOBLEY ADMN IV 3 N JORDYN N JORDYN NFS TQ UP 1 HR SBST/DRUG INJECTION J9265 LEANDRA MOBLEY 3 N JORDYN N JORDYN PACLITAXE L 30 MG RADIATION 73168 SHO BERKOWITZ PRA 3 TREATMENT MANAGEMEN T 5 TREATMENT S COMPREHEN 19997 LEANDRA MOBLEY SIVE 3 N [place] [address] LEANDRA MOBLEY INFUSION 3 N JORDYN N JORDYN THER PROPH ADDL SEQUENTIA L TO 1 HR CHEMOTX 60985 LEANDRA MOBLEY ADMN IV 3 N JORDYN N JORDYN NFS TQ EA SEQL NFS TO 1 HR BLOOD 06750 LEANDRA MOBLEY COUNT 3 N JORDYN N JORDYN COMPLETE AUTO&AUTO DIFRNTL WBC INJECTION J9265 LEANDRA BARNESMAN 3 N JORDYN N JORDYN PACLITAXE L 30 MG CHEMOTX 02318 LEANDRA MOBLEY ADMN IV 3 N JORDYN [...] YOUR YOUR SM VOL 3 PHARMACY PH[facility] PNEUMAT NEBULIZR DISPBL 3-D 23469 [facility] RADIOTHER 3 BRA BRA APY PLAN DOSE-VOLU ME HISTOGRAM S BASIC 07774 [facility] RADIATION 3 [place] [address] [facility] DEVICES 3 BRA BRA DESIGN & CONSTRUCT ION COMPLEX SPMTRY 60361 SRINIVASAN BAR SRINIVASAN BAR W/VC 3 EXPIRATOR Y JONATHAN W/WO MXML VOL VNTJ THER RAD 52197 SHO SHAH SIMULAJ-A [address] [place] [address] HURST BERNICE HURST BERNICE GUIDANCE 3 RADIATION THERAPY FLDS PLACEMENT THERAPEUT 22205 SHO SHAH IC 3 RADIOLOGY TX PLANNING COMPLEX PET 41696 [facility] 3 [place] PET [place] PET SKULL [facility] BASE TO MID-THIGH FLUORODEO A9552 [facility] XYGLUCOSE 3 [place] PET [place] PET F-18 FDG [facility] DX UP TO 45 MCI PRTBLE E0431 KAMALJIT MARI GASEOUS 3 HOME HOME O2 SYS MEDICAL MEDICAL RENT; EQUIPWY EQUIPWY FLWMTR HUMIDFR&M ASK O2 CONC 1 E1390 KAMALJIT MARI DEL PORT 3 HOME HOME 85%/>02 MEDICAL MEDICAL CONC AT EQUIPME EQUIPME PRSC FLW RATE BLOOD 93903 LEANDRA MOBLEY COUNT 3 N JORDYN N [facility] COMPLETE AUTO&AUTO DIFRNTL WBC BLOOD 57383 KENYATTA YOU COUNT 3 [facility] COMPLETE INC INC AUTO&AUTO DIFRNTL WBC COMPREHEN 13617 KENYATTA YOU SIVE 3 [facility] METABOLIC INC INC PANEL ADMN SET A7003 YOUR YOUR SM VOL 3 PHARMACY PHARMACY [facility] PNEUMAT NEBULIZR DISPBL PRTBLE E0431 KAMALJIT MARI GASEOUS 3 HOME HOME O2 SYS MEDICAL MEDICAL RENT; EQUIPME EQUIPME FLWMTR HUMIDFR&M ASK O2 CONC 1 E1390 KAMALJIT KAMALJIT DEL PORT 3 HOME HOME 85%/>02 MEDICAL MEDICAL CONC AT EQUIPME EQUIPME PRSC FLW RATE CONSLTJ&R 57227 ERIKA JAMES EPRT 3 LOLA LOLA SLIDES PREPARED ELSEWHERE RADIOLOGI 52117 RUSS RUSS C EXAM 3 RHEA RHEA CHEST 2 VIEWS FRONTAL&L ATERAL BLOOD 08023 KENYATTA YOU COUNT 3 [facility] COMPLETE INC INC AUTO&AUTO DIFRNTL [facility] G0378 K[facility]TA YOU OBSERVATI 3 [facility] ON INC INC SERVICE PER HOUR BASIC 91648 KEN[place]TA YOU METABOLIC 3 [facility] PANEL INC INC CALCIUM TOTAL NONINVASI 86608 K[facility]TA YOU VE 3 [facility] EAR/PULSE INC INC OXIMETRY SINGLE DETER PRESSURIZ 69085 KENYATTA YOU ED/NONPRE 3 [facility] SSURIZED INC INC INHALATIO N TREATMENT OBSERVATI 39711 BARBRA CHRISTENSENMIE ON CARE 3 JR CHRYSTAL JR CHRYSTAL DISCHARGE MANAGEMEN T CYTP FINE 04153 PICKLESIM PICKLESIM NDL 3 ER JR SANA ER JR SANA ASPIRATE IMMT CYTOHIST STD DX 1ST CYTP EVAL 60147 PICKLESIM PICKLESIM FINE 3 ER JR SANA ER JR SANA NEEDLE ASPIRATE INTER[place] & [place] [address] PICKLESIM PICKLESIM SURG 3 ER JR SANA ER JR SANA PATHOLOGY GROSS&DIONNA ROSCOPIC EXAM NONINVASI 78073 KENYATTA YOU VE 3 [facility]OS[facility] EAR/PULSE INC INC OXIMETRY SINGLE DETER PRESSURIZ 86936 KENYATTA YOU ED/NONPRE 3 [facility] SSURIZED INC INC INHALATIO N TREATMENT INITIAL 04524 BRYAN LUQUEGEOVANNI OBSERVATI 3 MAURO MAURO ON CARE/[place] [address] [place] [address] KENYATTA YOU GUIDANCE 3 [facility] NEEDLE INC INC PLACEMENT ANESTHESI 38613 [facility] A CLOSED 3 ANESTH CHEST OF THE NEEDLE BLUE BIOPSY PLEURA FINE 09505 KENYATTA YOU NEEDLE 3 [facility] ASPIRATIO INC INC N WITH IMAGING GUIDANCE CT THORAX 16240 KENYATTA YOU W/O 3 [facility] CONTRAST INC INC MATERIAL RADIOLOGI 92852 RUSS RUSS C EXAM 3 RHEA RHEA CHEST 2 VIEWS FRONTAL&L ATERAL BLOOD 16621 KENYATTA YOU COUNT 3 [facility] COMPLETE INC INC AUTO&AUTO DIFRNTL WBC PROTHROMB 27738 KENYATTA YOU IN TIME 3 [facility] HOSP INC INC THROMBOPL 89145 KENYATTA YOU ASTIN 3 [facility] TIME INC INC PARTIAL PLASMA/[facility] 71775 [facility] DISCHARGE 3 JR CHRYSTAL SANTOYO [facility] DAY MANAGEMEN T 30 MIN/< SBSQ 30214 [facility] 3 JR CHRYSTAL SANTOYO CHRYSTAL CARE/DAY 25 MINUTES INITIAL 87403 [facility] 3 MAURO MAURO CARE/[place] [address] [place] [address] RUSS RUSS ANGIOGRAP 3 RHEA RHEA HY CHEST W/CONTRAS T/NONCONT RAST RADIOLOGI 82447 RUSS RUSS C EXAM 3 RHEA RHEA CHEST 2 VIEWS FRONTAL&L ATERAL ECG 76657 EMILY DIAZ JR ROUTINE 3 DWI DWI ECG W/LEAST 12 LDS I&R ONLY NONINVASI 16000 BRYAN ADAMS VE 3 MAURO MAURO EAR/PULSE [...] YOUR SM VOL 2 PHARMACY PHARMACY NONFILTR [facility] PNEUMAT NEBULIZR DISPBL RADIOLOGI 68053 [place] [address] MEDICAL RHEA EXAMINATI IMAGING ON CHEST ASS SINGLE VIEW FRONTAL AMB A0427 [facility] SERVICE 2 AMBULANCE AMBULANCE ALS SERVICE SERVICE EMERGENCY TRANSPORT LEVEL 1 GROUND A0425 [facility] MILEAGE 2 AMBULANCE AMBULANCE PER SERVICE SERVICE STATUTE MILE BRNCDILAT 54663 BARBRA BELLE RSPSE 2 JR CHRYSTAL JARRELL SPMTRY PRE&POST- BRNCDILAT [place]MN BLOOD 01396 KENYATTA YOU GASES ANY 2 [facility] INC INC COMBINATI ON PH PCO2 PO2 CO2 HCO3 GAS 30018 BARBRA BELLE DILUT/WAS 2 JR CHRYSTAL SANTOYO [...] INC IODINE CONCENTRA TION PER ML 3D 72161 K[facility]TA YOU RENDERING 2 [facility] INC INC W/INTERP& POSTPROC DIFF WORK STATION CT THORAX 66223 RUSS RUSS 2 RHEA [place] [address] K[place]TA YOU THYROID 2 [facility] STIMULATI INC INC NG HORMONE TSH LIPID 54499 K[place] YOU PANEL 2 [facility] INC INC 25 47499 [place] YOU HYDROXY 2 [facility] INCLUDES INC INC FRACTIONS IF PERFORMED CYANOCOBA 55484 K[place]TA YOU RAMBO 2 [facility] VITAMIN INC INC B-12 COMPREHEN 44626 KENY[place]TA YOU SIVE 2 [facility] METABOLIC INC INC PANEL BLOOD 81311 KENY[place]TA YOU COUNT 2 [facility] COMPLETE INC INC AUTO&AUTO DIFRNTL WBC RADIOLOGI 39084 KENYATTA MÉNDEZON C EXAM 2 MEM HOSP [...] A7003 YOUR YOUR VOL 2 [facility] NE[facility]UL[facility] DISPBL PRTBLE E0431 KAMALJIT [...] YOUR SM VOL 2 PHARMACY PHARMACY NONFILTR [employer] [facility] [place] [address] KENYATTA YOU THYROID 2 MEM HOS[facility] MEM HOS[facility] STIMULATI INC INC NG HORMONE TSH BLOOD 61810 KENYATTA YOU COUNT 2 [facility] COMPLETE INC INC AUTO&AUTO DIFRNTL WBC COMPREHEN 77658 KEN[place]TA YOU SIVE 2 [facility] METABOLIC INC INC PANEL CYANOCOBA 17038 KENYATTA YOU RAMBO 2 [facility] VITAMIN INC INC B-12 LIPID 49336 KENYATTA YOU PANEL 2 [facility] INC INC 25 22059 K[place]TA YOU HYDROXY 2 MEM HOS[facility] MEM [...] YOUR SM VOL 2 PHARMACY PHARMACY NONFILTR [employer] [facility] PNEUMAT NEBULIZR DISPBL PRTBLE E0431 KAMALJIT [...] NONFILTR LLC [facility] PNEUMAT NEBULIZR DISPBL HOSPITAL 522[address] [facility] 2 [facility] DAY INTERNAL MANAGEMEN MED T 30 MIN/< MYOCARDIA 76783 [facility] SPECT 2 [facility] MULTIPLE CARDIOLOG STUDIES Y CLINIC SBSQ [address] CARE/DAY INTERNAL 25 MED MINUTES SBSQ [address] CARE/DAY INTERNAL 25 MED MINUTES SBSQ [address] CARE/DAY INTERNAL 25 MED MINUTES AMB A0427 [facility] SERVICE 2 AMBULANCE AMBULANCE ALS SERVICE SERVICE EMERGENCY TRANSPORT LEVEL 1 CRITICAL 15363 [facility] 2 EMERGENCY ILL/INJUR SERVICES ED PATIENT INIT 30-74 MIN RADIOLOGI 16188 [place] RUSS C 2 MEDICAL RHEA EXAMINATI IMAGING ON CHEST ASS SINGLE VIEW FRONTAL INITIAL [address] CARE/DAY INTERNAL 50 MED MINUTES GROUND A0425 [facility] AM[facility]ULANCE AMBULANCE PER SERVICE SERVICE [...] YOUR YOUR SM VOL 2 PHARMACY PHARMACY [facility] PNEUMAT NEBULIZR DISPBL BLOOD 70789 KENYATTA YOU COUNT 2 [facility] COMPLETE INC INC AUTO&AUTO DIFRNTL WBC BASIC 87276 KENYATTA YOU METABOLIC 2 [facility] PANEL INC INC CALCIUM TOTAL O2 CONC 1 E1390 KAMALJIT MARI DEL PORT 2 HOME HOME 85%/>02 MEDICAL MEDICAL CONC AT EQUIPME EQUIPME PRSC FLW RATE PRTBLE E0431 KAMALJIT MARI GASEOUS 2 HOME HOME O2 SYS MEDICAL MEDICAL RENT; EQUIPME EQUIPME FLWMTR HUMIDFR&M [facility] 15668 [facility] 2 JR JARRELL [facility] DAY MANAGEMEN T 30 MIN/< SBSQ [address] MAURO CARE/DAY INTERNAL 25 MED MINUTES SBSQ [address] CARE/DAY INTERNAL 25 MED MINUTES SBSQ 41124 [facility] 2 JR CHRYSTAL JARRELL CARE/DAY 25 MINUTES SBSQ 37801 [facility] 2 JR CHRYSTAL SANTOYO CHRYSTAL CARE/DAY 35 MINUTES INTUBATIO 00110 [facility] N 2 DIONNA DIONNA ENDOTRACH EAL EMERGENCY PROCEDURE ECG 59700 [facility] ROUTINE 2 DIONNA DIONNA ECG W/LEAST 12 LDS I&R ONLY INITIAL 28698 [facility] 2 JR CHRYSTAL SANTOYO CHRYSTAL CARE/DAY 70 MINUTES GROUND A0425 [facility] MILEAGE 2 AMBULANCE AMBULANCE PER SERVICE SERVICE STATUTE MILE CRITICAL 34204 [facility] CARE 2 DIONNA DIONNA ILL/INJUR ED PATIENT INIT 30-74 MIN AMB A0427 [facility] SERVICE 2 AMBULANCE AMBULANCE ALS SERVICE SERVICE EMERGENCY TRANSPORT LEVEL 1 CONT 9671 KENYATTA YOU INVASIVE 2 [facility] H[facility] MECH VENT INC INC < 96 CONSECUTI VE HOURS INSERTION 9604 KENYATTA YOU OF 2 [facility] HOSP ENDOTRACH INC INC EAL TUBE O2 CONC 1 E1390 KAMALJITRACHEL MARI DEL PORT 1 HOME HOME 85%/>02 MEDICAL MEDICAL CONC AT EQUIPME EQUIPME PRS FLW RATE PRTBLE E0431 KAMALJIT MARI GASEOUS 1 HOME HOME O2 SYS MEDICAL MEDICAL RENT; EQUIPME EQUIPME FLWMTR HUMIDFR&M ASK ECG 13658 [facility] ROUTINE 1 DIONNA DIONNA ECG W/LEAST 12 LDS I&R ONLY RADIOLOGI 83411 RUSS RUSS C 1 RHEA RHEA EXAMINATI ON CHEST SINGLE VIEW FRONTAL PRTBLE E0431 KAMALJIT MARI GASEOUS 1 HOME HOME O2 SYS MEDICAL MEDICAL RENT; EQUIPME EQUIPME FLWMTR HUMIDFR&M ASK O2 CONC 1 E1390 KAMALJIT MARI DEL PORT 1 HOME HOME 85%/>02 MEDICAL MEDICAL CONC AT EQUIPME EQUIPME PRS FLW RATE RADIOLOGI 06683 [facility] MEDICAL RHEA CHEST 2 IMAGING VIEWS ASS FRONTAL&L ATERAL BASIC 14134 KENYATTA YOU METABOLIC 1 [facility]OSP PANEL INC INC CALCIUM TOTAL BLOOD 23444 KENYATTA YOU COUNT 1 [facility]OSP COMPLETE INC INC AUTO&AUTO DIFRNTL WBC CULTURE 99044 KENY[place]TA YOU BACTERIAL 1 [facility]OSP BLOOD INC INC AEROBIC W/ID ISOLATES ECG 05640 KENYATTA YOU ROUTINE 1 [facility]OS[facility] ECG INC INC W/LEAST 12 LDS TRCG ONLY W/O I&R PRESSURIZ 16276 KENYATTA YOU ED/NONPRE 1 [facility] HOSP SSURIZED INC INC INHALATIO N TREATMENT ECG 46786 KENY[place]TA BELLE ROUTINE 1 [facility] W/LEAST P 12 LDS I&R [...] SERVICE SERVICE LIFE SUSTAININ G SITUATION ECG 65493 NILSA SILVERIO ROUTINE 1 EMERGENCY III CHRYSTAL ECG SERVICES W/LEAST 12 LDS I&R ONLY RADIOLOGI 02654 [facility] TAVERARUSS C 1 MEDICAL RHEA EXAMINATI IMAGING [...] MEDICAL MEDICAL RENT; EQUIPME EQUIPME FLWMTR HUMIDFR&M [facility] 12390 [facility] DISCHARGE 1 NATHANIEL DAY MED CTR MANAGEMEN T > 30 MIN SBSQ 43498 [facility] 1 NATHANIEL CARE/DAY MED CTR 25 MINUTES SBSQ 05844 [facility] 1 NATHANIEL CARE/DAY MED CTR [address] [facility] ROUTINE 1 NATHANIEL GAR ECG W/LEAST PHYSICIAN 12 LDS S I&R ONLY ECG [address] [facility] ROUTINE 1 NATHANIEL GAR ECG W/LEAST PHYSICIAN 12 LDS S I&R ONLY ECHO [address] [facility] 1 NATHANIEL TORIBIO 2D W/WOM-MOD PHYSICIAN E COMPL S SPEC&COLR D INITIAL 18646 [facility] 1 NATHANIEL CARE/DAY MED CTR 70 MINUTES AMB A0422 FIRE DEPT FIRE DEPT OXYGEN&O2 1 OF OF SUPPLIES NAFISA SKELTON LIFE DAYTO DAYTO SUSTAININ G SITUATION ALS A0398 FIRE DEPT FIRE DEPT ROUTINE 1 OF OF DISPOSABL NAFISA SKELTON E DAYTO DAYTO SUPPLIES GROUND A0425 FIRE DEPT FIRE DEPT MILEAGE 1 OF OF PER NAFISA SKELTON STATUTE DAYTO DAYTO MILE RADIOLOGI 87742 RADIOLOGY VIANEY C EXAM 1 TUS CHEST 2 ASSOCIATE VIEWS S PSC FRONTAL&L ATERAL ECG 21888 DIAGNOSTI BOB ROUTINE 1 C GAR ECG CARDIOLOG W/LEAST ISTS INC 12 LDS I&R ONLY AMB A0427 FIRE DEPT FIRE DEPT SERVICE 1 OF OF ALS NAFISA SKELTON EMERGENCY DAYTO DAYTO TRANSPORT LEVEL 1 PRTBLE E0431 KAMALJITRACHEL SEVILLARELL [facility] 1 HOME MED HOME MED O2 SYS EQUIP. L [facility]. L [facility] 1 [facility] HOME MED 85%/>02 EQUIP. L EQUIP. L CONC AT [facility] FLW RATE O2 CONC 1 E1390 [facility] [place] 1 HOME MED HOME MED 85%/>02 EQUIP. L EQUIP. L CONC AT [facility] FLW RATE PRTBLE E0431 KAMALJIT SEVILLARELL GASEOUS 1 HOME MED HOME MED O2 SYS EQUIP. L EQUIP. L RENT; [facility] HUMIDFR&M ASK PRTBLE E0431 KAMALJIT KAMALJIT GASE[facility] 1 HOME MED HOME MED O2 SYS EQUIP. L EQUIP. L RENT; [facility] HUMIDFR&M ASK O2 CONC 1 E1390 [facility]LL [facility] [place] 1 HOME MED HOME MED 85%/>02 EQUIP. L EQUIP. L CONC AT [facility] FLW RATE GROUND A0425 FIRE DEPT FIRE DEPT MILEAGE 1 OF OF PER NAFISA SKELTON STATUTE DAYTO DAYTO MILE BLOOD [address] COUNT 1 NATHANIEL CANTUTH COMPLETE FT FT AUTO&AUTO BOBBY ROSALES DIFRNTL WBC THER [address] PROPH/DX 1 NATHANIEL ARMSTRONG NJX EA FT FT SEQL IV BOBBY ROSALES PUSH SBST/DRUG FAC BASIC [address] METABOLIC 1 NATHANIEL LOPEZBETH PANEL FT [place] [address] TROPONIN 1 NATHANIEL ARMSTRONG QUANTITAT FT FT CARLOS BOBBY ROSALES ALS A0398 FIRE DEPT FIRE DEPT ROUTINE 1 OF OF DISPOSABL NAFISA SKELTON E DAYTO DAYTO SUPPLIES AMB A0422 FIRE DEPT FIRE DEPT OXYGEN&O2 1 OF OF SUPPLIES NAFISA SKELTON LIFE DAYTO DAYTO SUSTAININ G SITUATION THER [address] PROPH/DX 1 NATHANIEL CANTUTH NJX IV FT FT PUSH BOBBY ROSALES SINGLE/1S T SBST/DRUG ECG [address] ROUTINE 1 NATHANIEL NATHANIEL ECG FT FT W/LEAST BOBBY ROSALES 12 LDS TRCG ONLY W/O I&R NATRIURET [address] IC 1 NATHANIEL NATHANIEL PEPTIDE FT FT BOBBY ROSALES THERAPEUT [address] IC 1 NATHANIEL NATHANIEL INJECTION FT FT IV PUSH BOBBY ROSALES EACH NEW DRUG ECG 39116 DIAGNOSTI MCDANNOLD ROUTINE 1 C PEG ECG CARDIOLOG W/LEAST ISTS INC 12 LDS I&R ONLY AMB A0427 FIRE DEPT FIRE DEPT SERVICE 1 OF OF JAIDEN SKELTON EMERGENCY DAYTO DAYTO TRANSPORT LEVEL 1 RADIOLOGI 34882 RADIOLOGY FUNMI C 1 CHR EXAMINATI ASSOCIATE ON CHEST S PSC SINGLE VIEW FRONTAL PRTBLE E0431 KAMALJIT KAMALJIT [facility] 1 HOME MED HOME MED O2 SYS EQUIP. L EQUIP. L RENT; [facility] HUMIDFR&M ASK O2 CONC 1 E1390 [facility]JIT [facility]ARTINEZ [place] 1 HOME MED HOME MED 85%/>02 EQUIP. L EQUIP. L CONC AT [facility] FLW RATE O2 CONC 1 E1390 [facility]ALJIT MARI [place] 1 HOME MED HOME MED 85%/>02 EQUIP. L EQUIP. L CONC AT [facility] FLW RATE PRTBLE E0431 KAMALJIT MARI [facility] 1 HOME MED HOME MED O2 SYS EQUIP. L EQUIP. L RENT; [facility] HUMIDFR&M ASK PRTBLE E0431 KAMALJIT MARI [facility] 1 HOME MED HOME MED O2 SYS EQUIP. L EQUIP. L RENT; [facility] HUMIDFR&M ASK O2 CONC 1 E1390 KAMALJIT MARI [facility] 1 HOME MED HOME MED 85%/>02 EQUIP. L EQUIP. L CONC AT [facility] [address] [facility] DISCHARGE 1 [facility] DAY MED CTR MANAGEMEN T 30 MIN/< SBSQ 59182 [facility] 1 [facility] CARE/DAY MED CTR 25 MINUTES ECG 65519 DIAGNOSTI MCDANNOLD ROUTINE 1 C PEG ECG CARDIOLOG W/LEAST ISTS INC 12 LDS I&R ONLY ECG 88186 DIAGNOSTI MCDANNOLD ROUTINE 1 C PEG ECG CARDIOLOG W/LEAST ISTS INC 12 LDS I&R ONLY ALS A0398 FIRE DEPT FIRE DEPT ROUTINE 1 OF OF DISPOSABL NAFISA SKELTON E DAYTO DAYTO SUPPLIES GROUND A0425 FIRE DEPT FIRE DEPT MILEAGE 1 OF OF PER NAFISA [place] [address] RADIOLOGY DARDINGER ANGIOGRAP 1 MICAH HY CHEST ASSOCIATE W/CONTRAS S PSC T/NONCONT RAST AMB A0427 FIRE DEPT FIRE DEPT SERVICE 1 OF OF ALS NAFISA SKELTON EMERGENCY DAYTO DAYTO TRANSPORT LEVEL 1 RADIOLOGI 75729 RADIOLOGY SCHMITTER C 1 MICAH EXAMINATI ASSOCIATE ON CHEST S PSC SINGLE VIEW FRONTAL O2 CONC 1 E1390 KAMALJIT MARI DEL PORT 0 HOME MED HOME MED 85%/>02 EQUIP. L EQUIP. L CONC AT [facility] FLW RATE PRTBLE E0431 KAMALJITRACHEL SEVILLARELL GASEOUS 0 HOME MED HOME MED O2 SYS EQUIP. L EQUIP. L RENT; FLWMTR [facility] [address] [facility] DISCHARGE 0 [facility] CTR MANAGEMEN T > 30 MIN [facility] [address] [facility] 0 [facility] CARE/DAY MED CTR 25 MINUTES [facility] 42195 [facility] 0 [facility] CARE/DAY MED CTR 25 MINUTES CRITICAL 47010 EMERGENCY [facility] CARE 0 CARE LISA ILL/INJUR PHYS ED [facility] PATIENT INIT 30-74 MIN [facility] A0427 FIRE DEPT FIRE DEPT SERVICE 0 OF OF ALS NAFISA MAYAE EMERGENCY DAYTO DAYTO TRANSPORT LEVEL 1 RADIOLOGI 48876 RADIOLOGY NEILS LEO C 0 EXAMINATI ASSOCIATE ON CHEST S PSC SING[place] VIEW FRONTAL ECG 69330 DIAGNOSTI JAYJAY NIV ROUTINE 0 C ECG CARDIOLOG W/LEAST ISTS INC 12 [facility] I&R ONLY INITIAL 62719 [facility] 0 [facility] CARE/DAY MED CTR 50 MINUTES ALS A0398 [...] 85%/>02 EQUIP. L EQUIP. L CONC AT [facility] FLW RATE PRTBLE E0431 KAMALJIT SEVILLARELL GASEOUS 0 HOME MED HOME MED O2 SYS EQUIP. L EQUIP. L RENT; [facility] HUMIDFR&M [facility] [address] [facility] DISCHARGE 0 NATHANIEL DAY MED CTR MANAGEMEN T > 30 MIN SBSQ 36561 [facility] 0 NATHANIEL CARE/DAY MED CTR 25 MINUTES RADIOLOGI 84669 RADIOLOGY VIANEY C EXAM 0 TUS CHEST 2 ASSOCIATE VIEWS S PSC FRONTAL&L ATERAL INITIAL 77894 [facility] 0 NATHANIEL CARE/[place] [address] [place] [address] RADIOLOGY RANJIT LIMITED/L 0 MAURO OCALIZED ASSOCIATE FOLLOW UP S PSC STUDY ECG 26260 DIAGNOSTI JAYJAY NIV ROUTINE 0 C ECG [...] NAFISA SKELTON STATUTE DAYTO [place] CRITICAL 44165 EMERG[facility]Y [facility] CARE 0 CARE ILL/INJUR PHYS ED [facility]THERN PATIENT INIT 30-74 MIN AMB A0427 FIRE DEPT FIRE DEPT SERVICE 0 OF OF ALS NAFISA SKELTON EMERGENCY DAYTO DAYTO TRANSPORT LEVEL 1 RADIOLOGI 01772 RADIOLOGY SURESH BYR C 0 EXAMINATI ASSOCIATE ON CHEST S PSC SINGLE VIEW FRONTAL O2 CONC 1 E1390 KAMALJIT MARI DEL PORT 0 HOME MED HOME MED 85%/>02 EQUIP. L EQUIP. L CONC AT [facility] FLW RATE PRTBLE E0431 KAMALJIT KAMALJIT GASEOUS 0 HOME MED HOME MED O2 SYS EQUIP. L EQUIP. L RENT; [facility] HUMIDFR&M ASK PRTBLE E0431 KAMALJIT KAMALJIT GASEOUS 0 HOME MED HOME MED O2 SYS EQUIP. L EQUIP. L RENT; [facility] HUMIDFR&M ASK O2 CONC 1 E1390 KAMALJIT KAMALJIT DEL PORT 0 HOME MED HOME MED 85%/>02 EQUIP. L EQUIP. L CONC AT [facility] RATE O2 CONC 1 E1390 KAMALJIT KAMALJIT DEL PORT 0 HOME MED HOME MED 85%/>02 EQUIP. L [facility]QUIP. L [facility] KAMALJIT KAMALJIT GASEOUS 0 HOME MED HOME MED O2 SYS EQUIP. L EQUIP. L RENT; [facility] HUMIDFR&M ASK PRTBLE E0431 KAMALJIT KAMALJIT GASEOUS 0 HOME MED HOME MED O2 SYS EQUIP. EQUIP. RENT; [facility] HUMIDFR&M ASK O2 CONC 1 E1390 KAMALJIT KAMALJIT DEL PORT 0 HOME MED HOME MED 85%/>02 EQUIP. EQUIP. CONC AT [facility] RATE O2 CONC 1 E1390 KAMALJIT KAMALJIT DEL PORT 0 HOME MED HOME MED 85%/>02 EQUIP. EQUIP. CONC AT [facility] E0431 KAMALJIT KAMALJIT GASEOUS 0 HOME MED HOME MED O2 SYS EQUIP. EQUIP. RENT; [facility] HUMIDFR&M ASK PRTBLE E0431 KAMALJIT KAMALJIT GASEOUS 0 HOME MED HOME MED O2 SYS EQUIP. EQUIP. RENT; [facility] HUMIDFR&M ASK O2 CONC 1 E1390 KAMALJIT KAMALJIT DEL PORT 0 HOME MED HOME MED 85%/>02 EQUIP. EQUIP. CONC AT [facility] R[facility] O2 CONC 1 E1390 KAMALJIT KAMALJIT DEL PORT 0 HOME MED HOME MED 85%/>02 EQUIP. EQUIP. CONC AT [facility] E0431 KAMALJIT KAMALJIT GASEOUS 0 HOME MED HOME MED O2 SYS EQUIP. EQUIP. RENT; [facility] HUMIDFR&M ASK PRTBLE E0431 KAMALJIT KAMALJIT GASEOUS 0 HOME MED HOME MED O2 SYS EQUIP. EQUIP. RENT; [facility] HUMIDFR&M ASK O2 CONC 1 E1390 KAMALJIT KAMALJIT DEL PORT 0 HOME MED HOME MED 85%/>02 EQUIP. EQUIP. CONC AT [employer] FLW RATE CATARACT 98796 [place], REMOVAL 0 I EYE [facility] AN[facility] 83289 INDEPENDE HIPOLITO, A EYE 0 NT ALAM LENS ANESTHESI SURGERY OLOGIST CATARACT 32735 [place], REMOVAL 0 I EYE [facility] 17734 INDEPENDE [place], A EYE 0 NT FAVIOLA LENS ANESTHESI J SURGERY OLOGIST OPH BMTRY 80846 [place], PRTL 0 I EYE [facility] INTRFRMTR Y IO LENS PWR JAIRON OPHTH [address] [facility] 9 I EYE [facility] COMPRHNSV ESTAB PT 1/> HOSPITAL 29516 PATIENT [facility] DISCHARGE 9 FIRST [facility] DAY PHYS MANAGEMEN T 30 MIN/< INITIAL 60405 PATIENT [place] [address] FIRST [facility] CARE/DAY PHYS 70 MINUTES RHYTHM 34991 EMERGENCY HERFEL, ECG 1-3 9 CARE AGUILAR U LEADS PHYS INTERPRET [place] REPR[place] ECG 11941 CHUCKY TRIANA 9 C NIVA ECG CARDIOLOG W/LEAST ISTS INC 12 LDS I&R ONLY RADIOLOGI 88809 RADIOLOGY MICHELLE C 9 ROBERT Shea EXAMINATI ASSOCIATE ON CHEST S PSC SINGLE VIEW FRONTAL [facility] 28167 PATIENT [facility], DISCHARGE 9 [facility] [place] DAY PHYS MANAGEMEN T 30 MIN/< RADIOLOGI 82007 RADIOLOGY LAIB, C EXAM 9 KO H CHEST 2 ASSOCIATE VIEWS S PSC FRONTAL&L ATERAL SBSQ [address] CARE/DAY PHYS 25 MINUTES SBSQ [address] CARE/DAY PHYS 25 MINUTES SBSQ [address] CARE/DAY PHYS 25 MINUTES SBSQ 30412 PATIENT [facility] 9 [facility] [place] C CARE/DAY PHYS 25 MINUTES INITIAL 92969 PATIENT [place] [address] [facility] [place] CARE/DAY PHYS 50 MINUTES AMB [...] DIST #1 N DIST #1 MILE ECG 12808 DIAGNOSMYRTLE RO, ROUTINE 9 C NIVA ECG CARDIOLOG W/LEAST ISTS INC 12 LDS I&R ONLY RADIOLOGI 13658 RADIOLOGY Olegario FOX 9 PALLAVI DELGADO ASSOCIATE ON CHEST S PSC SINGLE VIEW FRONTAL [facility] 32859 PATIENT [facility] 9 [facility] [place] DAY PHYS MANAGEMEN T 30 MIN/< SBSQ 48958 PATIENT [place] [address] [facility] [place] CARE/DAY PHYS 25 MINUTES SBSQ [address] C CARE/DAY PHYS 25 MINUTES SBSQ 38482 PATIENT [place] [address] [facility] [place] CARE/DAY PHYS 25 MINUTES ECG 26769 DIAGNOSTI SUKUMAROLD ROUTINE 9 C , TATE J ECG CARDIOLOG W/LEAST ISTS INC 12 LDS I&R ONLY ECG 10528 DIAGNOSTI YOBANYANNOLD ROUTINE 9 C , TATE J ECG CARDIOLOG W/LEAST ISTS INC 12 LDS I&R ONLY INITIAL 64579 PATIENT [place] [address] [facility] [place] CARE/DAY PHYS 50 MINUTES RHYTHM 49812 EMERGENCY JUAN ANTONIO, ECG 1-3 9 CARE MIMI D LEADS PHYS INTERPRET [place] [facility] [place] REPRT ON ALS A0398 [facility] ROUTINE 9 CO FIRE CO FIRE DISPOSABL PROTECTIO PROTECTIO E N DIST #1 N DIST #1 SUPPLIES GROUND A0425 [facility] MILEAGE 9 CO FIRE CO FIRE PER PROTECTIO PROTECTIO STATUTE N DIST #1 N DIST #1 MILE RADIOLOGI 71722 RADIOLOGY Olegario STONE EXAM 9 CHEST 2 ASSOCIATE NATHANIEL VIEWS S PSC A FRONTAL&L ATERAL AMB A0427 [facility] SERVICE 9 CO FIRE CO FIRE ALS PROTECTIO PROTECTIO EMERGENCY N DIST #1 N DIST #1 TRANSPORT LEVEL 1 OPHTH 40160 JIMBO ALEGRIA, MEDICAL 9 VISION CARLA M XM&EVAL COMPRE NEW PT 1/> VST LIPID 84633 KENYATTA YOU PANEL 9 [facility] INC INC HEPATIC 36790 KENYATTA YOU FUNCTION 9 [facility] PANEL INC INC BASIC 44529 KENYATTA YOU METABOLIC 9 [facility] PANEL INC INC [facility] 85416 [facility] EMERGENCY DISCHARGE 9 JR, J V JR, J V DAY MANAGEMEN T 30 MIN/< SBSQ 79974 [facility] 9 JR, J V JR, J V CARE/DAY 15 MINUTES SBSQ 21809 [facility] 9 JR, J V JR, J V CARE/DAY 25 MINUTES AMB A0427 [facility] SERVICE 9 AMBULANCE AMBULANCE ALS SERVICE SERVICE EMERGENCY TRANSPORT LEVEL 1 RADIOLOGI 30785 Olegario MOLINA 9 MEDICAL CAROL EXAMINATI IMAGING ON CHEST ASSOCIATE SINGLE S VIEW FRONTAL INITIAL 61167 [facility] 9 JR, J V JR, J V CARE/DAY 50 MINUTES AMB A0422 [facility] OXYGEN&O2 9 AMBULANCE AMBULANCE SUPPLIES SERVICE SERVICE LIFE SUSTAININ G SITUATION GROUND A0425 [facility] MILEAGE 9 AMBULANCE AMBULANCE PER SERVICE SERVICE STATUTE MILE ECG 08596 KENYATTA ADAMS, ROUTINE 9 [facility] W/LEAST PROF SERV 12 LDS I&R ONLY OBSERVATI 12285 Claudia MITCHELL ON CARE 9 LUIS ALBERTO Melvin DISCHARGE PSC MANAGEMEN T INITIAL 79427 Claudia MITCHELL OBSERVATI 9 LUIS ALBERTO Melvin ON PSC CARE/DAY 50 MINUTES ECG 60004 KENYATTA BELLE ROUTINE 9 [facility] CORDELL F W/LEAST PROF SERV 12 LDS I&R ONLY GROUND A0425 BILLY CERVANTES MILEAGE 9 AMBULANCE AMBULANCE PER SERVICE SERVICE STATUTE MILE AMB A0422 [facility] CERVANTES OXYGEN&O2 9 AMBULANCE AMBULANCE SUPPLIES SERVICE SERVICE LIFE SUSTAININ G SITUATION AMB A0427 [facility] CERVANTES SERVICE 9 AMBULANCE AMBULANCE ALS SERVICE SERVICE EMERGENCY TRANSPORT LEVEL 1 RADIOLOGI 75164 LISETTEChandra Olegario SOLANO 9 MEDICAL CAROL EXAMINATI IMAGING ON CHEST ASSOCIATE SINGLE S VIEW FRONTAL AMB A0427 BILLY CERVANTES SERVICE 9 AMBULANCE AMBULANCE ALS SERVICE SERVICE EMERGENCY TRANSPORT LEVEL 1 AMB A0422 BILLY CERVANTES OXYGEN&O2 9 AMBULANCE AMBULANCE SUPPLIES SERVICE SERVICE LIFE SUSTAININ G SITUATION GROUND A0425 BILLY CERVANTES MILEAGE 9 AMBULANCE AMBULANCE PER SERVICE SERVICE STATUTE MILE RADIOLOGI 60470 ERIC Olegario BHANDARI EXAM 9 MEDICAL GEORGE P CHEST 2 IMAGING VIEWS ASSOCIATE FRONTAL&L S ATERAL BLOOD 82400 KENYATTA YOU COUNT 9 [facility] COMPLETE INC INC AUTO&AUTO DIFRNTL WBC COMPREHEN 48141 KENYATTA YOU SIVE 9 [facility] METABOLIC INC INC PANEL BLOOD 93493 KENYATTA OYU GASES ANY 9 [facility] INC INC COMBINATI ON PH PCO2 PO2 CO2 HCO3 ECG 08301 KENYATTA YOU ROUTINE 8 [facility] ECG INC INC W/LEAST 12 LDS TRCG ONLY W/O I&R PRESSURIZ 14322 KENYATTA YOU ED/NONPRE 8 [facility] SSURIZED INC INC INHALATIO N TREATMENT ECG 42609 KENYATTA LUQUESON, ROUTINE 8 [facility] W/LEAST PROF SERV 12 LDS I&R ONLY IV NFUS 06033 KENYATTA YOU THER 8 [facility] PROPH/DX INC INC EA HR RHYTHM 90023 KENYATTA YOU ECG 1-3 8 [facility] LEADS INC INC TRACING ONLY W/O I&R CREATINE 28249 KENYATTA YOU KINASE MB 8 [facility] FRACTION INC INC ONLY PRESSURIZ 33256 KENYATTA YOU ED/NONPRE 8 [facility] SSURIZED INC INC INHALATIO N TREATMENT NATRIURET 51110 KENYATTA YOU IC 8 [facility] PEPTIDE INC INC CREATINE 24088 KENYATTA YOU KINASE 8 [facility] TOTAL INC INC BLOOD 93551 KENYATTA YOU COUNT 8 [facility] COMPLETE INC INC AUTO&AUTO DIFRNTL WBC BASIC 72283 KENYATTA YOU METABOLIC 8 [facility] [place]EL [place] [address] KENYATTA YOU TROPONIN 8 [facility] QUANTITAT [place]FS 71676 KENYATTA YOU THER 8 [facility] PROPH/DX INC INC 1ST >1 HR RADIOLOGI 75999 KENYATTA YOU C 8 [facility] EXAMINATI INC INC ON CHEST SINGLE VIEW FRONTAL GROUND A0425 LINDA LINDA MILEAGE 8 CO CO PER AMBULANCE AMBULANCE STATUTE SERVICE SERVICE MILE AMBULANCE A0429 LINDA LINDA SERVICE 8 CO CO BLS AMBULANCE AMBULANCE EMERGENCY SERVICE SERVICE TRANSPORT BLS A0382 LINDA LINDA ROUTINE 8 CO CO DISPOSABL AMBULANCE AMBULANCE E SERVICE SERVICE [facility] 67311 [facility] 8 Jamee SANTOYO JR J Silke DAY MANAGEMEN T 30 MIN/< SBSQ 94111 [facility] 8 Jamee SANTOYO JR, J V CARE/DAY 15 MINUTES SBSQ 31775 [facility] 8 Jamee SANTOYO JR J Silke CARE/DAY 15 MINUTES SBSQ [address] E CARE/DAY EMD 25 MINUTES SBSQ [address] E CARE/DAY EMD 25 MINUTES SBSQ [address] E CARE/DAY EMD 25 MINUTES AMB A0427 [facility] 8 AMBULANCE AMBULANCE ALS SERVICE SERVICE EMERGENCY TRANSPORT LEVEL [address] E CARE/DAY EMD 50 MINUTES GROUND A0425 [employer] MILEAGE 8 AMBULANCE AMBULANCE PER SERVICE SERVICE STATUTE MILE AMB A0422 [employer] OXYGEN&O2 8 AMBULANCE AMBULANCE SUPPLIES SERVICE SERVICE LIFE SUSTAININ G SITUATION RADIOLOGI 36525 Olegario REYES EXAM 8 MEDICAL GEORGE P CHEST 2 IMAGING VIEWS ASSOCIATE FRONTAL&L S ATERAL AMBULANCE A0429 LINDA LINDA SERVICE 8 CO CO BLS AMBULANCE AMBULANCE EMERGENCY SERVICE SERVICE TRANSPORT GROUND A0425 LINDA LINDA MILEAGE 8 CO CO PER AMBULANCE AMBULANCE [place] [address] [facility] TROPONIN [address] [place] [address] [facility] CARLOS BASIC 05125 [facility] METABOLIC [address] [place] [address] PANEL [facility] CALCIUM TOTAL BLOOD 29737 [facility] COUNT [address] [place] [address] COM[facility]TE [facility] AUTO&AUTO DIFRNTL WBC AMB A0422 LINDA LINDA OXYGEN&O2 8 CO CO SUPPLIES AMBULANCE AMBULANCE LIFE SERVICE SERVICE SUSTAININ G SITUATION FIBRIN 13566 [facility] DGRADJ [address] [place] [address] PRODUCTS [facility] D-DIMER ULTRASENS ITIVE ECG 49413 [facility] ROUTINE [address] [place] [address] ECG [facility] W/LEAST 12 LDS TRCG ONLY W/O I&R THER [address] [facility] [address] KE PROPH/DX [address] [place] [address] NJX IV [facility] PUSH 1ST SBST/DRUG THER 29590 [facility] PROPH/DX [address] [place], [place] [address]X EA [facility] SEQL IV PUSH SBST/DRUG RADIOLOGI 83216 RADIOLOGY Olegario [place] 8 ALMA DELGADO ASSOCIATE ON CHEST S PSC [facility] [address] PATIENT [facility], DISCHARGE 8 FIRST CASSANDRA G DAY PHYS MANAGEMEN T 30 MIN/< SBSQ 45873 PATIENT [place] [address] [facility] [place] CARE/DAY PHYS 15 MINUTES INITIAL 02211 PATIENT [facility] 8 [facility] [place] CARE/DAY PHYS 50 MINUTES DOPPLER 03215 CARDIOLOG GARCIA, ECHOCARD 8 Y SHELBI D PULSE ASSOCIATE WAVE S W/SPECTRA L DISPLAY ECHO 41201 CARDIOLOG GARCIA, TRANSTHOR 8 Y SHELBI D AC R-T 2D ASSOCIATE W/WO S M-MODE REC COMP ECG 88047 DIAGNOSTI BOB, ROUTINE 8 C FAUSTINO ECG CARDIOLOG W/LEAST ISTS INC 12 LDS I&R ONLY GROUND A0425 LINDA LINDA MILEAGE 8 CO CO PER AMBULANCE AMBULANCE STATUTE SERVICE SERVICE MILE BLS A0382 LINDA LINDA ROUTINE 8 CO CO DISPOSABL AMBULANCE AMBULANCE E SERVICE SERVICE SUPPLIES RADIOLOGI 32538 RADIOLOGY NEMARKEL, C EXAM 8 NOEMY W CHEST 2 ASSOCIATE VIEWS S PSC FRONTAL&L ATERAL AMBULANCE A0429 LINDA LINDA SERVICE 8 CO CO BLS AMBULANCE AMBULANCE EMERGENCY SERVICE SERVICE TRANSPORT AMBULANCE A0429 LINDA LINDA SERVICE 8 CO CO BLS AMBULANCE AMBULANCE EMERGENCY SERVICE SERVICE TRANSPORT RADIOLOGI 93861 RADIOLOGY SUSANR, C EXAM 8 AXEL M CHEST 2 ASSOCIATE VIEWS S PSC FRONTAL&L ATERAL BASIC 56934 [facility] METABOLIC [address] [place] [address] PAN[facility] [place] [address] [facility] TROPONIN [address] [place] [address] [facility] CARLOS BLOOD 09821 [facility] COUNT [address] [place] [address] [facility] AUTOMATED GROUND A0425 LINDA LINDA MILEAGE 8 CO CO PER AMBULANCE AMBULANCE STATUTE SERVICE SERVICE MILE ECG 95242 DEJON WHITING ROUTINE 8 C , TATE J ECG CARDIOLOG W/LEAST ISTS INC 12 LDS I&R ONLY THER [address] [facility] PROPH/DX [address] [place] [address] NJX IV [facility] PUSH 1ST SBST/DRUG ECG 57184 [facility] ROUTINE [address] [place] [address] ECG [facility] W/LEAST 12 LDS TRCG ONLY W/O I&R LIPID 65722 PATIENT [place], PANEL 8 [facility] [place] C PHYS BASIC 43593 PATIENT [place], METABOLIC 8 [facility] [place] C PANEL PHYS CALCIUM TOTAL BASIC 74729 KENYATTANAEL YOU METABOLIC 8 [facility] PANEL INC INC CALCIUM TOTAL AMBULANCE A0429 LINDA LINDA SERVICE 8 CO CO BLS AMBULANCE AMBULANCE EMERGENCY SERVICE SERVICE TRANSPORT BLS A0382 LINDA LINDA ROUTINE 8 CO CO DISPOSABL AMBULANCE AMBULANCE E SERVICE SERVICE SUPPLIES BLOOD 89344 KENYATTA YOU COUNT 8 [facility] COMPLETE INC INC AUTO&[place] [address] KENYATTA YOU TROPONIN 8 [facility] H[facility] QUANTITAT INC INC CARLOS GROUND A0425 LINDA HUGHESON MILEAGE 8 CO CO PER AMBULANCE AMBULANCE STATUTE SERVICE SERVICE MILE ECG 14100 KENYATTA YOU ROUTINE 8 [facility] ECG INC INC W/LEAST 12 LDS TRCG ONLY W/O I&R CREATINE 40103 KENYATTA YOU KINASE 8 [facility] TOTAL INC INC PRESSURIZ 75998 KENYATTA YOU ED/NONPRE 8 [facility] SSURIZED INC INC INHALATIO N TREATMENT CREATINE 73316 KENYATTA YOU KINASE MB 8 [facility] FRACTION INC INC ONLY ECG 41723 KENYATTA ADAMS, ROUTINE 8 [facility] W/LEAST PROF SERV 12 LDS I&R ONLY RADIOLOGI 71908 KENYATTA YOU C 8 [facility] EXAMINATI INC INC ON CHEST [facility] 99153 [facility] EMERGENCY DISCHARGE 8 Jamee SANTOYO JR, J V DAY MANAGEMEN T 30 MIN/< SBSQ 70487 [facility] 8 Jamee SANTOYO JR J Silke CARE/DAY 25 MINUTES INITIAL 80326 [facility] 8 Jamee SANTOYO JR J Silke CARE/DAY 50 MINUTES RADIOLOGI 10291 Olegario REYES EXAM 8 MEDICAL GEORGE P CHEST 2 IMAGING VIEWS ASSOCIATE FRONTAL&L S ATERAL ECG 24368 KENYATTA BELLE ROUTINE 8 [facility] CORDELL W/LEAST PROF SERV 12 LDS I&R ONLY INITIAL 46356 GHADA URRUTIA OBSERVATI 8 JR, J V JR, J V ON CARE/DAY 50 MINUTES BLS A0382 LINDA LINDA ROUTINE 8 CO CO DISPOSABL AMBULANCE AMBULANCE E SERVICE SERVICE SUPPLIES AMBULANCE A0429 LINDA LINDA SERVICE 8 CO CO BLS AMBULANCE AMBULANCE EMERGENCY SERVICE SERVICE TRANSPORT GROUND A0425 LINDA LINDA MILEAGE 8 CO CO PER AMBULANCE AMBULANCE STATUTE SERVICE SERVICE [facility] 14342 EMILY EMILY, DISCHARGE 8 [facility] E DAY EMD MANAGEMEN T 30 MIN/< RADIOLOGI 83825 Olegario REYES EXAM 8 MEDICAL GEORGE P CHEST 2 IMAGING VIEWS ASSOCIATE FRONTAL&L S ATERAL SBSQ [address] E CARE/DAY EMD 25 MINUTES SBSQ [address] E CARE/DAY EMD 25 MINUTES ECG 94549 KENYATTA DIAZ, ROUTINE [address] [place] [address] W/LEAST PROF SERV 12 LDS I&R ONLY SBSQ [address] E CARE/DAY EMD 25 MINUTES SBSQ [address] E CARE/DAY EMD 25 MINUTES RADIOLOGI 83202 Olegario MOLINA 8 MEDICAL CAROL EXAMINATI IMAGING ON CHEST ASSOCIATE SINGLE S VIEW FRONTAL ECG 93764 KENYATTA DIAZ, ROUTINE [address] [place] [address] W/LEAST PROF SERV 12 LDS I&R ONLY BLS A0382 LINDA LINDA ROUTINE 8 CO CO DISPOSABL AMBULANCE AMBULANCE E SERVICE SERVICE SUPPLIES GROUND A0425 LINDA LINDA MILEAGE 8 CO CO PER AMBULANCE AMBULANCE STATUTE SERVICE SERVICE MILE AMBULANCE A0429 LINDA LINDA SERVICE 8 CO CO BLS AMBULANCE AMBULANCE EMERGENCY SERVICE SERVICE TRANSPORT INITIAL [address] CARE/DAY EMD 50 MINUTES CLOSED 33.26 Carol [PERCUTAN Russ EOUS] [NEEDLE] [facility] Encounters Encounter Start End Date Code Location Performer Type Date EMERGENCY 66510 CURTIS GARCIA DEPT 7 7 PHYSICIAN U VISIT S, [facility] HIGH SEVERITY& THREAT [facility] EMERGENCY 71530 [place] 7 7 [facility] DEPARTMEN [facility] T VISIT [facility]IGH/URGE NT SEVERITY HOSPITAL [place] - 7 7 [facility] OUTPATIEN [facility] [place] - 7 7 [facility] INPATIENT [facility] EMERGENCY 82427 CURTIS ARAUZ DEPT 7 7 PHYSICIAN VISIT S, [facility] HIGH SEVERITY& THREAT [facility] EMERGENCY 02397 [place] DEPT 6 6 [facility] VISIT INC HIGH SEVERITY& THREAT [facility] [place] - [facility]IEN [facility] [place] - 6 6 [facility] OUTPATIEN [facility] EMERGENCY 45970 [place] 6 6 [facility] T VISIT HIGH/URGE NT SEVERITY EMERGENCY 93185 [place] DEPT 6 6 [facility] VISIT [facility] HIGH SEVERITY& THREAT [facility] [place] - 6 6 [facility] OUTPATIEN [facility] OFFICE 47635 [facility] OUTPATIEN 6 6 NATHANIEL N T VISIT MED CTR [address] - 6 6 NATHANIEL OUTPATIEN [facility] OFFICE 59311 [facility] RO NIV OUTPATIEN 6 6 NATHANIEL T VISIT 25 PHYSICIAN MINUTES [facility] NATHANIEL T VISIT 25 PHYSICIAN MINUTES S OFFICE 00541 [facility] 6 6 NATHANIEL T VISIT 25 PHYSICIAN MINUTES S OFFICE [address] [facility] OUTPATI[facility] 6 6 NATHANIEL YEAR LAT T VISIT 15 PHYSICIAN MINUTES S OFFICE [address] [facility] OUTPATIEN 5 5 NATHANIEL ALDAIR T VISIT 15 PHYSICIAN MINUTES [facility] - 5 5 NATHANIEL OUTPATIEN [facility] - 5 5 [facility]ATHANIEL OUTPATIEN [facility] - 5 5 NATHANIEL [facility] - 4 4 NATHANIEL [facility]LANGER [facility] - 4 4 NATHANIEL OUTER[facility]ER [facility] - 4 4 NATHANIEL INPATIENT [facility] - 4 4 N[facility]ANIEL [facility] - 3 3 [facility] OFFICE 34968 [facility] OUTPATIEN 3 3 N JORDYN N JORDYN T VISIT 15 MINUTES [facility] 3 3 [facility] ST - 3 3 NATHANIEL OUTPATIEN [facility] OFFICE 47218 OUTPATIEN 3 3 NATHANIEL T VISIT 5 FT MINUTES [facility] OFFICE 41933 [facility] OUTPATIEN 3 3 T VISIT 15 MINUTES OFFICE 02410 [facility] OUTPATIEN 3 3 JAM JAM T VISIT 25 MINUTES [facility] - 3 3 [facility] 24707 [facility] 3 3 YEAR LAT YEAR LAT T VISIT 25 MINUTES OFFICE 00356 [facility] OUTPATIEN 3 3 N JORDYN N JORDYN T VISIT 15 MINUTES [facility] OTHER 3 3 [facility] ST - 3 3 NATHANIEL OUTPATIEN FT T [facility] - 3 3 NATHANIEL OUTPATIEN FT T [facility] OFFICE [address] ST OUTPATIEN 3 3 NATHANIEL T VISIT 5 FT MINUTES [facility] OFFICE 58803 LEANDRA MOBLEY OUTPATIEN 3 3 N JORDYN N JORDYN T VISIT 15 MINUTES OFFICE 54122 [facility] OUTPATIEN 3 3 JOSE MANUELI M MATIAS M T VISIT 15 MINUTES OFFICE 78983 [facility] OUTPATIEN 3 3 N JORDYN N JORDYN T VISIT [address] - 3 3 NATHANIEL OUTPATIEN FT T [facility] OFFICE 52202 [facility] OUTPATIEN 3 3 N JORDYN N JORDYN T VISIT 25 MINUTES OFFICE 54710 [facility] 3 3 YEAR LAT T NEW 30 MINUTES OFFICE 20905 [facility] OUTPATIEN 3 3 N JORDYN N JORDYN T VISIT 25 MINUTES OFFICE 18927 [facility] OUTPATIEN 3 3 N JORDYN N JORDYN T VISIT 25 MINUTES OFFICE 24746 [facility] OUTPATIEN 3 3 N JORDYN N JORDYN T VISIT [address]ES [address] [facility] CONSULTAT 3 3 NATHANIELANDRÉS NDIAYE ION NEW/ESTAB PHYSICIAN PATIENT S [address] OUTPATIEN 3 3 NATHANIEL T VISIT 5 FT MINUTES [facility] - 3 3 NATHANIEL OUTPATIEN FT T BOBBY OFFICE 21720 SHO SHAH OUTPATIEN 3 3 T NEW 45 MINUTES OFFICE 35175 LEANDRA MOBLEY OUTPATIEN 3 3 N JORDYN N JORDYN T NEW 60 MINUTES [facility] [place] [facility] T OFFICE 13293 CARLENE CONCEPCION OUTPATIEN 3 3 Uriel JONNY DEN T VISIT 15 MINUTES OFFICE 46893 BARBRA BELLE OUTPATIEN 3 3 JR CHRYSTAL JARRELL T VISIT 15 MINUTES OFFICE 38785 CARLENE CONCEPCION OUTPATIEN 3 3 JONNY DEN T NEW 45 MINUTES Inpatient IMP Kenyatta ADAMS ([place]) 3 09:16 3 15:22 [facility] [place] - 3 3 [facility] [place] - [facility] 3 [facility] T Inpatient IMP Kenyatta Adams ([place]) 3 10:40 3 10:15 [facility] [place] - 3 3 [facility] INPATIENT INC OFFICE 88857 BARBRA BELLE OUTPATIEN 2 2 JR CHRYSTAL JARRELL T VISIT 15 MINUTES EMERGENCY 77718 NILSA CHAVEZ DEPT 2 2 EMERGENCY VISIT SERVICES HIGH SEVERITY& THREAT [facility] [place] - 2 2 [facility] T OFFICE 00794 WHANG NIDA WHLEYDI NIDA CONSULTAT 2 2 ION NEW/ESTAB PATIENT 60 MIN OFFICE 90973 BRYAN ADAMS OUTPATIEN 2 2 MAURO MAURO T VISIT 25 MINUTES [facility] [place] - [facility] 2 [facility] T OFFICE 26557 BESSON BESSON OUTPATIEN 2 2 MAURO MAURO T VISIT 25 MINUTES [facility] [place] - 2 2 [facility] T OFFICE 98218 BESSON BESSON OUTPATIEN 2 2 MAURO MAURO T VISIT 15 MINUTES [facility] [place] - [facility] 2 [facility] T OFFICE 42946 BESSON BESSON OUTPATIEN 2 2 MAURO MAURO T VISIT 25 MINUTES OFFICE 54557 MCKEMIE MCKEMIE OUTPATIEN 2 2 JR CHRYSTAL JR CHRYSTAL T VISIT 15 MINUTES [facility] [place] - 2 2 [facility] [place] - 2 2 [facility] INC EMERGENCY 40176 HEBER BUCK DEPT 1 1 [facility] DIONNA VISIT [facility]IGH SEVERITY& THREAT [facility] [place] - 1 1 [facility] INC EMERGENCY 10597 [place] 1 1 [facility] T VISIT LOW/MODER SEVERITY [facility] [place] - 1 1 [facility] OUT[facility]IEN [facility] EMERGENCY 26330 NILSA SILVERIO DEPT 1 1 EMERGENCY III CHRYSTAL VISIT SERVICES HIGH SEVERITY& THREAT [facility] ST - 1 1 NATHANIEL INPATIENT [facility] EMERGENCY 52218 EMERGENCY JEAN-CLAUDE DEPT 1 1 CARE CESAR VISIT PHYS HIGH [place] SEVERITY& THREAT [facility] ST - 1 1 NATHANIEL OUTPATIEN [facility] EMERGENCY 43647 EMERGENCY JEAN-CLAUDE DEPT 1 1 CARE CESAR VISIT PHYS HIGH [facility]THER[place] SEVERITY& THREAT [facility] OFFICE 76773 [facility] OUTPATIEN 1 1 NATHANIEL NIDA T VISIT 25 PHYSICIAN MINUTES S EMERGENCY 72158 EMERGENCY JUAN ANTONIO DEPT 1 1 CARE MARCIN VISIT PHYS HIGH [facility]THER[place] SEVERITY& THREAT [facility] OFFICE 46817 MOJGAN HERRMANNPATIEN 0 0 NATHANIEL MARTEIAN T VISIT 25 PHYSICIAN MINUTES S OFFICE 14970 MOJGAN HERRMANNPATIEN 0 0 NATHANIEL ALDEN T VISIT 15 PHYSICIAN MINUTES S OFFICE 80118 MOJGAN HERRMANNPATIEN 0 0 NATHANIEL ALDEN T VISIT 25 PHYSICIAN MINUTES S OFFICE 59058 CENTERVILLEMOJGANPATIEN 0 0 I EYE [facility] 45 [facility]STITUTE MINUTES OFFICE 21137 PATIENT VENKATESH LACEY 9 9 [facility] T VISIT PHYS 25 MINUTES EMERGENCY 98660 EMERGENCY MELO DEPT 9 9 CARE AGUILAR U VISIT PHYS HIGH [place]& [place] [facility] 9 9 HOSPITAL INPATIENT [email or web address] OFF[facility] 95455 PATIENT VENKATESH LACEY 9 9 [facility] T VISIT PHYS 25 MINUTES EMERGENCY 79971 EMERGENCY SEJAL, DEPT 9 9 CARE ERNST VISIT PHYS HIGH [place]& [place] [facility] EMERGENCY 86934 EMERGENCY JUAN ANTONIO DEPT 9 9 CARE MIMI D VISIT PHYS HIGH [place] SE[place]& [place] [facility] [place] - 9 9 [facility] OUT[facility]EN [facility] [place] [facility] 9 9 [facility] INC EMERGENCY 46266 NILSA BUCK DEPT 9 9 EMERGENCY CASSANDRA S VISIT SERVICES HIGH SEVERITY& ASSOCIATE THREAT S [facility] [place] - 9 9 [facility] INPATIENT INC EMERGENCY 59562 NILSA BUCK DEPT 9 9 EMERGENCY CASSANDRA S VISIT SERVICES HIGH SEVERITY& ASSOCIATE THREAT S [facility] OFFICE 17023 GHADA [facility] 9 9 Jamee SANTOYO JR, J V T VISIT 15 MINUTES OFFICE 50598 [facility] Jamee SANTOYO JR, Jamee Edouard T VISIT 15 MINUTES EMERGENCY 08510 [place] 9 9 [facility] T VISIT MODERATE SEVERITY EMERGENCY 36385 CAMILO MERCADO, DEPT 9 9 NATIONAL KRYSTAL VISIT CORPORATI O HIGH ON SEVERITY& THREAT [facility] [place] - 9 9 [facility] EMERGENCY 21218 [place] 8 8 [facility] T VISIT [facility]IGH/URGE NT SEVERITY HOSPITAL [place] - 8 8 [facility] [place] - 8 8 [facility] INPATIENT [facility] EMERGENCY 17731 EMERGENCY FLORENCE, DEPT 8 8 CARE EDJUSTICE L VISIT PHYS HIGH [place] SE[place]& [place] TH[place] [facility] [place] [address] 8 [facility] EMERGENCY 48997 [facility] 8 8 [facility] VISIT HIGH/URGE NT SEVERITY EMERGENCY 50706 EMERGENCY TYRELL, DEPT 8 8 CARE CASSANDRA VISIT PHYS HIGH [place] SE[place]& [place] TH[place] [facility] EMERGENCY 32028 EMERGENCY MORALES, DEPT 8 8 CARE RADAMES L VISIT PHYS HIGH [place]& [place] TH[place] [facility] EMERGENCY 30958 [facility] DEPT 8 8 HOSPITAL VISIT EAST HIGH SEVERITY& THREAT [facility] [place] [address] 8 [facility] OFFICE 52485 PATIENT KLA[facility]IA [facility] 8 8 FIRST CASSANDRA G T NEW 45 PHYS MINUTES EMERGENCY 13067 [place] Pappas 8 [facility] T VISIT MODERATE SEVERITY HOSPITAL [place] Pappas 8 [facility] [place] - Mian 8 [facility] T EMERGENCY 09283 [place] 8 8 [facility] T VISIT LIMITED/M INOR PROB EMERGENCY 36662 Mian OGDEN 8 [facility] T VISIT PROF SERV LOW/MODER SEVERITY [facility]OSPITAL [place] - 8 8 [facility] INPATIENT [facility] [place] - Mian 8 [facility]
[2017-03-12 11:45] LABS: BUN 23 mg/dL (7-18); GFR (ESTIMATED) 62 ML/MIN (59-)
[2017-03-12] MEDS ORDERED: SYMBICORT1 AE1 IH (11:48)
[2017-03-12] MEDS ORDERED: OLANZAPINE5 MG PO (11:48)
[2017-03-12] MEDS ORDERED: DEXAMETHASONE4 MG FT (11:49)
[2017-03-12] MEDS ORDERED: AMITRIPTYLINE 550 MG PO (11:49)
--- OUTSIDE RECORDS SUMMARY | 2017-03-12 11:57 | External Medical Summary Rpt ---
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 -0 .0 LG 25 [facility] ti LB 32 8- 8- 00 RE 24 CK ve -A 54 20 20 EN CE 42 10 10 S BR TA 8 #1 IA [place] 14 N N- 95 CA # FF 11 50 49 -3 5 25 -4 0 TH 50 06 07 5 30 30 AZ 14 SC Ac EO 11 -1 -0 .0 LG 74 [facility] ti PH 10 8- 2- 00 RE 25 CK ve YL 48 20 20 EN 6 LI 20 10 10 S BR NE 2 #4 IA 28 N ER 4 # 20 42 0 84 MG TA BL ET 53 06 06 0 12 12 AZ 14 SC Ac 01 -1 -1 0. LG 71 [facility] ti 40 8- 9- 00 RE 98 CK ve 54 20 20 0 EN 0 86 10 10 S BR 7 #4 IA 28 N 4 # 42 84 AL 00 06 06 5 30 25 AZ 14 SC Ac BU 48 -1 -1 0. LG 71 [facility] ti TE 79 8- 9- 00 RE 98 CK ve RO 50 20 20 0 EN 2 L 12 10 10 S BR CONRAD 5 #4 IA L 28 N 2. 4 5 # MG 42 /3 84 ML SO LN 00 06 06 0 20 10 AZ 14 SC Ac 14 -1 -1 .0 LG 71 [facility] ti 31 8- 9- 00 RE 98 CK ve 47 20 20 EN 3 31 10 10 S BR 0 #4 IA 28 N 4 # 42 84 AD 00 06 06 5 60 30 AZ 14 SC Ac VA 17 -1 -1 .0 LG 71 [place] ti IR 30 8- 9- 00 RE 98 CK ve 69 20 20 EN 7 25 60 10 10 S BR 0- 0 #4 IA 50 28 N 4 DI # SK 42 US 84 59 02 06 5 8. 30 [place] 14 SC Ac 31 -0 -1 50 LG 45 [facility] ti 00 1- 6- 0 RE 35 CK ve 57 20 20 EN 4 92 10 10 S BR 0 #4 IA 28 N 4 # 42 84 TH 50 03 05 3 60 30 AZ 14 SC Ac EO 11 -1 -2 .0 LG 54 [facility] ti PH 10 7- 7- 00 RE 29 CK ve YL 48 20 20 EN 4 LI 20 10 10 S BR NE 2 #4 IA 28 N ER 4 # 20 42 0 84 MG TA BL ET BU 00 04 05 1 20 4 AZ 14 SC Ac TA 60 -2 -2 .0 LG 67 [facility] ti LB 32 7- 7- 00 RE 78 CK ve -A 54 20 20 EN 8 CE 42 10 10 S BR TA 8 #4 IA [place] 28 N N- 4 CA # FF 42 84 50 -3 25 -4 0 00 12 05 2 45 30 AZ 14 SC Ac 59 -1 -2 .0 LG 54 [facility] ti 10 5- 2- 00 RE 37 CK ve 34 20 20 EN 6 90 09 10 S BR 5 #4 IA 28 N 4 # 42 84 59 02 05 5 8. 30 AZ 14 SC Ac 31 -0 -1 50 LG 45 [facility] ti 00 1- 8- 0 RE 35 CK ve 57 20 20 EN 4 92 10 10 S BR 0 #4 IA 28 N 4 # 42 84 TH 50 03 04 3 60 30 AZ 14 SC Ac EO 11 -1 -2 .0 LG 54 [facility] ti PH 10 7- 7- 00 RE 29 CK ve YL 48 20 20 EN 4 LI 20 10 10 S BR NE 2 #4 IA 28 N ER 4 # 20 42 0 84 MG TA BL ET BU 00 04 04 0 20 3 AZ 14 SC Ac TA 60 -1 -2 .0 LG 62 [facility] ti LB 32 3- 7- 00 RE 01 CK ve -A 54 20 20 EN 5 CE 42 10 10 S BR TA 8 #4 IA [place] 28 N N- 4 CA # FF 42 84 50 -3 25 -4 0 BU 00 04 04 0 20 3 WA 13 SC Ac TA 60 -1 -1 .0 LG 14 [facility] ti LB 32 2- 2- 00 RE 92 CK ve -A 54 20 20 EN CE 42 10 10 S BR TA 8 #1 IA [place] 14 N N- 95 CA # FF [...] 28 RD 4 J # 42 84 59 02 03 5 8. 30 [place] 14 SC Ac 31 -0 -1 50 LG 45 [facility] ti 00 1- 7- 0 RE 35 CK ve 57 20 20 EN 4 92 10 10 S BR 0 #4 IA 28 N 4 # 42 84 TH 50 03 03 3 60 30 WA 14 SC Ac EO 11 -1 -1 .0 LG 54 [facility] ti PH 10 7- 7- 00 RE 29 CK ve YL 48 20 20 EN 4 LI 20 10 10 S BR NE 2 #4 IA 28 N ER 4 # 20 42 0 84 MG TA BL ET AD 00 09 03 2 60 30 WA 14 SC Ac VA 17 -0 -0 .0 LG 14 [facility] ti IR 30 9- 3- 00 RE 27 CK ve 69 20 20 EN 1 25 60 09 10 S BR 0- 0 #4 IA 50 28 N 4 DI # SK 42 US 84 61 03 03 2 5. 32 WA 14 HO Ac 31 -0 -0 00 LG 51 LL ti 40 1- 1- 0 RE 03 AN ve 01 20 20 EN 6 D 80 10 10 S ED 5 #[address] 4 J # 42 84 00 03 03 1 3. 14 [place] 14 Ac GA 06 -0 -0 00 LG 51 LL ti MO 54 1- 1- 0 RE 03 AN ve X 01 20 20 EN 8 D 0. 30 10 10 S ED 5% 3 #[address] EY 4 J E # DR 42 OP 84 S 00 02 02 00 3. 14 AZ 14 Ac GA 06 -1 -2 00 LG 48 LL ti MO 54 5- 6- 0 RE 28 AN ve X 01 20 20 EN 1 D 0. 30 10 10 ED 5% 3 #[address] EY [address] LUNA S ME 68 02 02 00 30 30 AZ 14 SC Ac LO 18 -1 -2 .0 LG 49 [facility] ti XI 00 0- 6- 00 RE 16 CK ve CA 50 20 20 EN 0 M 20 10 10 BR 15 3 #4 IA 28 N MG 4 TA BL ET 00 12 02 02 45 30 AZ 14 SC Ac 59 -1 -2 .0 LG 34 [facility] ti 10 5- 6- 00 RE 49 CK ve 34 20 20 EN 9 90 09 10 BR 5 #4 IA 28 N 4 59 02 02 00 8. 30 AZ 14 SC Ac 31 -0 -1 50 LG 45 [facility] ti 00 1- 1- 0 RE 35 CK ve 57 20 20 EN 4 92 10 10 BR 0 #4 IA 28 N 4 SE 59 01 02 01 15 30 AZ 14 SC Ac RT 76 -1 -1 .0 LG 40 [facility] ti RA 24 1- 1- 00 RE 01 CK ve LI 91 20 20 EN 5 NE 00 10 10 BR 5 #4 IA HC 28 N L 4 10 0 MG TA BL ET AD 00 02 02 00 60 30 AZ 14 SC Ac VA 17 -0 -1 .0 LG 45 [facility] ti IR 30 1- 1- 00 RE 35 CK ve 69 20 20 EN 2 25 60 10 10 BR 0- 0 #4 IA 50 28 N 4 DI SK US 00 01 02 00 3. 7 AZ 14 Ac GA 06 -2 -1 00 LG 44 LL ti MO 54 7- 1- 0 RE 00 AN ve X 01 20 20 EN 6 D 0. 30 10 10 ED 5% 3 #[address] EY [address] OP S 61 01 02 00 5. 31 [place] 14 HO Ac 31 -2 -1 00 LG 44 LL ti 40 7- 1- 0 RE 00 AN ve 01 20 20 EN 4 D 80 10 10 ED 5 #[address] 4 J 00 12 01 01 45 30 [place] 14 SC Ac 59 -1 -2 .0 LG 34 [facility] ti 10 5- 8- 00 RE 49 CK ve 34 20 20 EN 9 90 09 10 BR 5 #4 IA 28 N 4 SE 59 01 01 00 15 30 AZ 14 SC Ac RT 76 -1 -2 .0 LG 40 [facility] ti RA 24 1- 8- 00 RE 01 CK ve LI 91 20 20 EN 5 NE 00 10 10 BR 5 #4 IA HC 28 N L 4 10 0 MG TA BL ET 59 10 01 03 8. 16 [place] 14 SC Ac 31 -2 -2 50 LG 23 [facility] ti 00 0- 8- 0 RE 42 CK ve 57 20 20 EN 5 92 09 10 BR 0 #4 IA 28 N 4 AD 00 10 01 01 60 30 [place] 14 KA Ac VA 17 -1 -2 .0 LG 21 LF ti IR 30 3- 8- 00 RE 44 ve 69 20 20 EN 3 25 60 09 10 [place] 0- 0 #4 NA 50 28 C 4 DI SK US 59 10 12 02 8. 16 AZ 14 SC Ac 31 -2 -3 50 LG 23 [facility] ti 00 0- 1- 0 RE 42 CK ve 57 20 20 EN 5 92 09 09 BR 0 #4 IA 28 N 4 00 12 12 00 45 30 AZ 14 SC Ac 59 -1 -3 .0 LG 34 [facility] ti 10 5- 1- 00 RE 49 CK ve 34 20 20 EN 9 90 09 09 BR 5 #4 IA 28 N 4 NA 68 10 12 01 60 30 AZ 14 KA Ac NE 46 -1 -1 .0 LG 21 LF ti OX 20 3- 7- 00 RE 44 ve EN 19 20 20 EN 4 00 09 09 KY 50 5 #4 NA 0 28 C MG 4 TA BL ET XO 63 10 12 01 72 30 [place] 14 KA Ac PE 40 -1 -1 .0 LG 21 LF ti NE 20 3- 7- 00 RE 44 ve X 51 20 20 EN 1 1. 32 09 09 KY 25 4 #4 NA 28 C MG 4 /3 ML SO JOANN TI ON SE 59 10 12 01 15 30 [place] 14 KA Ac RT 76 -1 -1 .0 LG 21 LF ti RA 24 3- 7- 00 RE 46 ve LI 91 20 20 EN 0 NE 00 09 09 KY 5 #4 NA HC 28 C L 4 10 0 MG TA BL ET TH 50 10 12 01 60 30 WA 14 KA Ac EO 11 -1 -1 .0 LG 21 LF ti PH 10 3- 7- 00 RE 44 ve YL 48 20 20 EN 6 LI 20 09 09 KY NE 2 #4 NA 28 C ER 4 20 0 MG TA BL ET NE 00 12 12 00 30 12 WA 14 SC Ac ED 59 -0 -1 .0 LG 32 [facility] ti NI 15 6- 7- 00 RE 45 FE ve SO 44 20 20 EN 0 R NE 20 09 09 KY 5 #4 CH 10 28 AE 4 L MG G TA BL ET AL 00 12 12 00 36 30 WA 14 SC Ac BU 48 -0 -1 0. LG 32 [facility] ti TE 79 6- 7- 00 RE 44 FE ve RO 50 20 20 0 EN 5 R L 16 09 09 [place] CONRAD 0 #4 CH L 28 AE 2. 4 L 5 G MG /3 ML SO LN 00 12 12 00 14 25 WA 14 SC Ac 59 -0 -1 .6 LG 32 [facility] ti 70 6- 7- 99 RE 44 FE ve 01 20 20 EN 9 R 31 09 09 KY 4 #4 CH 28 AE 4 L G AV 00 12 12 00 7. 7 WA 14 SC Ac EL 08 -0 -1 00 LG 32 [facility] ti OX 51 6- 7- 0 RE 44 FE ve 73 20 20 EN 7 R 40 30 09 09 KY 0 1 #4 CH MG 28 AE 4 L TA G BL ET 00 12 12 00 60 30 WA 14 SC Ac 18 -0 -1 .0 LG 32 [facility] ti 24 6- 7- 00 RE 44 FE ve 03 20 20 EN 6 R 01 09 09 KY 0 #4 CH 28 AE 4 L G IP 00 12 12 00 30 30 WA 14 SC Ac RA 48 -0 -1 0. LG 32 [facility] ti TR 79 6- 7- 00 RE 45 FE ve OP 80 20 20 0 EN 1 R IU 16 09 09 KY M 0 #4 CH BR 28 AE 4 L 0. G 02 % SO LN NE 00 10 12 01 12 3 WA [...] BR 0 #4 IA 28 N 4 59 10 11 00 8. 16 WA 14 SC Ac 31 -2 -0 50 LG 23 [facility] ti 00 0- 5- 0 RE 42 CK ve 57 20 20 EN 5 92 09 09 BR 0 #4 IA 28 N 4 NE 00 10 11 00 12 3 WA 14 KA Ac OM 60 -2 -0 0. LG 23 LF ti ET 31 0- 5- 00 RE 42 ve [facility] 58 20 20 0 EN 8 ZI 85 09 09 KY NE 8 #4 NA 28 C VC 4 -C OD EI NE SY RU P IP 00 10 10 00 30 30 WA 14 KA Ac RA 48 -1 -2 0. LG 21 LF ti TR 79 3- 2- 00 RE 43 ve OP 80 20 20 0 EN 9 IU 16 09 09 KY M 0 #4 NA BR 28 C 4 0. 02 % SO LN XO 63 10 10 00 72 30 AZ 14 KA Ac PE 40 -1 -2 .0 LG 21 LF ti NE 20 3- 2- 00 RE 44 ve X 51 20 20 EN 1 1. 32 09 09 KY 25 4 #4 NA 28 C MG 4 /3 ML SO JOANN TI ON AD 00 10 10 00 60 30 AZ 14 KA Ac VA 17 -1 -2 .0 LG 21 LF ti IR 30 3- 2- 00 RE 44 ve 69 20 20 EN 3 25 60 09 09 KY 0- 0 #4 NA 50 28 C 4 DI SK US 00 10 10 00 30 7 AZ 14 KA Ac 59 -1 -2 .0 LG 21 LF ti 10 3- 2- 00 RE 44 ve 34 20 20 EN 5 90 09 09 KY 5 #4 NA 28 C 4 AV 00 10 10 00 3. 3 AZ 14 KA Ac EL 08 -1 -2 00 LG 21 LF ti OX 51 3- 2- 0 RE 43 ve 73 20 20 EN 4 40 30 09 09 KY 0 1 #4 NA MG 28 C 4 TA BL ET NE 00 10 10 00 40 12 AZ 14 KA Ac ED 59 -1 -2 .0 LG 21 LF ti NI 15 3- 2- 00 RE 45 ve SO 44 20 20 EN 3 NE 20 09 09 KY 5 #4 NA 10 28 C 4 MG TA BL ET TH 50 10 10 00 60 30 WA 14 KA Ac EO 11 -1 -2 .0 LG 21 LF ti PH 10 3- 2- 00 RE 44 ve YL 48 20 20 EN 6 LI 20 09 09 KY NE 2 #4 NA 28 C ER 4 20 0 MG TA BL ET SE 59 10 10 00 15 30 WA 14 KA Ac RT 76 -1 -2 .0 LG 21 LF ti RA 24 3- 2- 00 RE 46 ve LI 91 20 20 EN 0 NE 00 09 09 KY 5 #4 NA HC 28 C L 4 10 0 MG TA BL ET NA 68 10 10 00 60 30 WA 14 KA Ac NE 46 -1 -2 .0 LG 21 LF ti OX 20 3- 2- 00 RE 44 ve EN 19 20 20 EN 4 00 09 09 KY 50 5 #4 NA 0 28 C MG 4 TA BL ET SE 59 09 09 00 15 30 WA 14 KA Ac RT 76 -0 -2 .0 LG 14 LF ti RA 24 9- 4- 00 RE 27 ve LI 91 20 20 EN 4 NE 00 09 09 KY 5 #4 NA HC 28 C L 4 10 0 MG TA BL ET 00 09 09 00 30 7 WA 14 KA Ac 59 -0 -2 .0 LG 14 LF ti 10 9- 4- 00 RE 26 ve 34 20 20 EN 8 90 09 09 KY 5 #4 NA 28 C 4 NE 00 09 09 00 12 3 WA 14 KA Ac OM 60 -0 -2 0. LG 14 LF ti ET 31 9- 4- 00 RE 27 ve [facility] 58 20 20 0 EN 0 ZI 85 09 09 KY NE 8 #4 NA 28 C VC 4 -C OD EI NE SY RU P NE 00 09 09 00 20 15 WA 14 KA Ac ED 59 -0 -2 .0 LG 14 LF ti NI 15 9- 4- 00 RE 26 ve SO 44 20 20 EN 7 NE 30 09 09 KY 5 #4 NA 20 28 C 4 MG TA BL ET NA 68 09 09 00 60 30 WA 14 KA Ac NE 46 -0 -2 .0 LG 14 LF ti OX 20 9- 4- 00 RE 27 ve EN 19 20 20 EN 3 00 09 09 KY 50 5 #4 NA 0 28 C MG 4 TA BL ET 59 09 09 00 8. 16 WA 14 KA Ac 31 -0 -2 50 LG 14 LF ti 00 9- 4- 0 RE 27 ve 57 20 20 EN 2 92 09 09 KY 0 #4 NA 28 C 4 AD 00 09 09 00 60 30 WA 14 KA Ac VA 17 -0 -2 .0 LG 14 LF ti IR 30 9- 4- 00 RE 27 ve 69 20 20 EN 1 25 60 09 09 KY 0- 0 #4 NA 50 28 C 4 DI SK US NE 00 08 08 00 30 30 CL 19 CA Ac AV 09 -2 -[address] ti 37 1- 7- 00 IC 71 IL ve TA 20 20 20 LO TI 29 09 09 PH N 8 AR JR SO MA J DI CY V UM 40 MG TA B NE 00 08 08 00 6. 25 CL 19 CA Ac OV 08 -0 -[address] ti EN 51 5- 7- 0 IC 55 IL ve TI 13 20 20 LO L 20 09 09 PH HF 1 AR JR A MA J 90 CY V MC G IN [facility] LE R 00 08 08 00 15 30 CL 19 CA Ac 37 -0 -[address] ti 84 5- 3- 00 IC 54 IL ve 18 20 20 LO 80 09 09 PH 1 AR JR MA J CY V NA 53 08 08 00 30 15 CL 19 CA Ac NE 74 -0 -[address] [...] V DI #3 SK 93 US 8 NE 00 09 07 06 6. 25 RI 76 SC Ac OV 08 -1 -3 70 TE 48 [facility] ti EN 51 9- 0- 0 64 FE ve TI 13 20 20 AI R L 20 08 09 D KY HF 1 PH CH A AR AE 90 M L #3 G MC 93 G 8 IN [facility] LE R 59 06 07 00 8. 16 RI 78 CA Ac 31 -2 -[address] ti 00 7- 6- 0 83 IL ve 57 20 20 AI LO 92 09 09 D 0 PH JR AR J M V #3 93 8 00 06 07 00 30 5 RI [...] V DI #3 SK 93 US 8 ME 00 06 07 00 30 30 RI 78 CA Ac TF 09 -2 -[address] ti OR 31 7- 6- 00 81 IL ve KY 04 20 20 AI LO N 80 09 09 D HC 1 PH JR L AR J 50 M V 0 #3 MG 93 8 TA BL ET NE 00 09 07 05 6. 25 RI 76 SC Ac OV 08 -1 -0 70 TE 48 [facility] ti EN 51 9- 2- 0 64 FE ve TI 13 20 20 AI R L 20 08 09 D KY HF 1 PH CH A AR AE 90 M L #3 G MC 93 G 8 IN [facility] LE R NE 00 09 06 04 6. 25 RI 76 SC Ac OV 08 -1 -0 70 TE 48 [facility] ti EN 51 9- 4- 0 64 FE ve TI 13 20 20 AI R L 20 08 09 D KY HF 1 PH CH A AR AE 90 M L #3 G MC 93 G 8 IN [facility] LE R AD 00 07 06 04 60 30 RI 76 SC Ac VA 17 -0 -0 .0 TE 48 [facility] ti IR 30 7- 4- 00 63 FE ve 69 20 20 AI R 25 60 08 09 D KY 0- 0 PH CH 50 AR AE M L DI #3 G SK 93 US 8 NE 00 09 05 03 6. 25 RI 76 SC Ac OV 08 -1 -2 70 TE 48 [facility] ti EN 51 9- 1- 0 64 FE ve TI 13 20 20 AI R L 20 08 09 D KY HF 1 PH CH A AR AE 90 M L #3 G MC 93 G 8 IN [facility] LE R AD 00 07 05 03 60 30 RI 76 SC Ac VA 17 -0 -2 .0 TE 48 [facility] ti IR 30 7- 1- 00 63 FE ve 69 20 20 AI R 25 60 08 09 D KY 0- 0 PH CH 50 AR AE M L DI #3 G SK 93 US 8 AZ 59 05 05 00 6. 5 [...] A #3 TA 93 BL 8 ET ME 00 05 05 00 21 6 RI 78 MO Ac TH 60 -0 -2 .0 TE 34 SE ti YL 34 9- 1- 00 42 S ve NE [address] ED 31 09 09 D EP NI 5 PH HE SO AR N LO M A NE #3 4 93 8 MG DO SE PK AD 00 07 04 02 60 30 RI 76 SC Ac VA 17 -0 -0 .0 TE 48 [facility] ti IR 30 7- 9- 00 63 FE ve 69 20 20 AI R 25 60 08 09 D KY 0- 0 PH CH 50 AR AE M L DI #3 G SK 93 US 8 NE 00 09 04 02 6. 25 RI 76 SC Ac OV 08 -1 -0 70 TE 48 [facility] ti EN 51 9- 9- 0 64 FE ve TI 13 20 20 AI R L 20 08 09 D KY HF 1 PH CH A AR AE 90 M L #3 G MC 93 G 8 IN [facility] LE R 00 02 02 00 15 30 CL 18 CA Ac 37 -0 -[address] ti 84 7- 6- 00 IC 77 IL ve 18 20 20 LO 80 09 09 PH 1 AR JR MA J CY V AD 00 07 02 01 60 30 RI 76 SC Ac VA 17 -0 -1 .0 TE 48 [facility] ti IR 30 7- 2- 00 63 FE ve 69 20 20 AI R 25 60 08 09 D KY 0- 0 PH CH 50 AR AE M L DI #3 G SK 93 US 8 NE 00 09 02 01 6. 25 RI 76 SC Ac OV 08 -1 -1 70 TE 48 [facility] ti EN 51 9- 2- 0 64 FE ve TI 13 20 20 AI R L 20 08 09 D KY HF 1 PH CH A AR AE 90 M L #3 G MC 93 G 8 IN [facility] LE R CL 00 02 02 00 20 10 RI 76 SO Ac AR 09 -0 -1 .0 TE 97 KA ti IT 37 6- 2- 00 74 N ve HR 15 20 20 AI BA OM 80 09 09 D BA YC 6 PH TU IN AR ND M E 50 #3 O 0 93 MG 8 TA BL ET ME 00 02 02 00 21 6 RI 76 SO Ac TH 60 -0 -1 .0 TE 97 KA ti YL 34 6- 2- 00 76 N ve NE 59 20 20 AI BA ED 31 09 09 D BA NI 5 PH TU SO AR ND LO M E NE #3 O 4 93 8 MG DO SE PK LO 00 02 02 00 30 30 RI 76 SO Ac RA 78 -0 -1 .0 TE 97 KA ti TA 15 6- 2- 00 72 N ve DI 07 20 20 AI BA NE 70 09 09 D BA 1 PH TU 10 AR ND M E MG #3 O 93 TA 8 BL ET NE 00 09 01 00 6. 25 RI 76 SC Ac OV 08 -1 -1 70 TE 48 [facility] ti EN 51 9- 5- 0 64 FE ve TI 13 20 20 AI R L 20 08 09 D KY HF 1 PH CH A AR AE 90 M L #3 G MC 93 G 8 IN [facility] LE R AD 00 07 01 00 60 30 RI 76 SC Ac VA 17 -0 -1 .0 TE 48 [facility] ti IR 30 7- 5- 00 63 FE ve 69 20 20 AI R 25 60 08 09 D KY 0- 0 PH CH 50 AR AE [...] AR J M V #3 93 8 00 10 10 00 20 4 CV [...] #5 L TA 43 BL 7 ET AD 00 07 10 02 60 30 CV 46 SC Ac VA 17 -0 -2 .0 S 25 [facility] ti IR 30 7- 3- 00 PH 87 FE ve 69 20 20 AR R 25 60 08 08 MA KY 0- 0 CY CH 50 AE #5 L DI 43 G SK 7 US NE 00 09 10 01 6. 25 CV 46 SC Ac OV 08 -1 -2 70 S 94 [facility] ti EN 51 9- 3- 0 PH 78 FE ve TI 13 20 20 AR R L 20 08 08 MA KY HF 1 CY CH A AE 90 #5 L 43 G MC 7 G IN [facility] LE R NE 00 09 09 00 63 18 CV 46 SC Ac ED 59 -1 -2 .0 S 94 [facility] ti NI 15 9- 6- 00 PH 76 FE ve SO 44 20 20 AR R NE 20 08 08 MA KY 1 CY CH 10 AE #5 L MG 43 G 7 TA BL ET AV 00 09 09 00 7. 7 CV 46 SC Ac EL 08 -1 -2 00 S 94 [facility] ti OX 51 9- 6- 0 PH 75 FE ve 73 20 20 AR R 40 30 08 08 MA KY 0 1 CY CH MG AE #5 L TA 43 G BL 7 ET 49 09 09 00 25 25 CV 46 SC Ac 50 -1 -2 0. S 94 [facility] ti 20 9- 6- 00 PH 77 FE ve 68 20 20 0 AR R 52 08 08 MA KY 6 CY CH AE #5 L 43 G 7 NE 00 09 09 00 6. 25 CV 46 SC Ac OV 08 -1 -2 70 S 94 [facility] ti EN 51 9- 6- 0 PH 78 FE ve TI 13 20 20 AR R L 20 08 08 MA KY HF 1 CY CH A AE 90 #5 L 43 G MC 7 G IN [facility] LE R 17 07 09 03 17 20 CV 46 SC Ac 27 -0 -1 .0 S 25 [facility] ti 00 7- 1- 00 PH 86 FE ve 72 20 20 AR R 10 08 08 MA KY 1 CY CH AE #5 L 43 G 7 17 07 08 02 17 20 CV 46 SC Ac 27 -0 -1 .0 S 25 [facility] ti 00 7- 4- 00 PH 86 FE ve 72 20 20 AR R 10 08 08 MA KY 1 CY CH AE #5 L 43 G 7 NI 00 07 08 00 30 30 CV 46 SC Ac 07 -3 -1 .0 S 46 [facility] ti PA 43 1- 4- 00 PH 70 FE ve N 07 20 20 AR R ER 49 08 08 MA KY 0 CY CH 50 AE 0 #5 L MG 43 G 7 TA BL ET TR 60 07 08 01 30 30 CV 46 SC Ac AZ 50 -0 -1 .0 S 25 [facility] ti OD 52 7- 4- 00 PH 88 FE ve ON 65 20 20 AR R E 30 08 08 MA KY 50 1 CY CH AE MG #5 L 43 G TA 7 BL ET AD 00 07 08 01 60 30 CV 46 SC Ac VA 17 -0 -1 .0 S 25 [facility] ti IR 30 7- 4- 00 PH 87 FE ve 69 20 20 AR R 25 60 08 08 MA KY 0- 0 CY CH 50 AE #5 L DI 43 G SK 7 US 17 07 08 01 17 20 CV 46 SC Ac 27 -0 -0 .0 S 25 [facility] ti 00 7- 1- 00 PH 86 FE ve 72 20 20 AR R 10 08 08 MA KY 1 CY CH AE #5 L 43 G 7 AD 00 07 07 00 60 30 CV 46 SC Ac VA 17 -0 -1 .0 S 25 [facility] ti IR 30 7- 7- 00 PH 87 FE ve 69 20 20 AR R 25 60 08 08 MA KY 0- 0 CY CH 50 AE #5 L DI 43 G SK 7 US 17 07 07 00 17 20 CV 46 SC Ac 27 -0 -1 .0 S 25 [facility] ti 00 7- 7- 00 PH 86 FE ve 72 20 20 AR R 10 08 08 MA KY 1 CY CH AE #5 L 43 G 7 TR 60 07 07 00 30 30 CV 46 SC Ac AZ 50 -0 -1 .0 S 25 [facility] ti OD 52 7- 7- 00 PH 88 FE ve ON 65 20 20 AR R E 30 08 08 MA KY 50 1 CY CH AE MG #5 L 43 G TA 7 BL ET ME 00 07 07 00 21 6 CV 46 GA Ac TH 78 -0 -1 .0 S 20 IN ti YL 15 1 7- 00 PH 27 EY ve NE 02 20 20 AR ED 20 08 08 MA KY NI 7 CY CH SO AE LO [...] #5 H CR 43 EA 7 M PE 45 05 05 00 60 30 RI 73 No Ac RM 80 -0 -0 .0 TE 16 t ti ET 20 2- 8- 00 11 Av ve HR 26 20 20 AI ai IN 93 08 08 D la 7 PH bl 5% AR e M CR #3 EA 93 M 8 50 05 05 00 15 5 CL 16 No Ac 11 -0 -0 .0 IN 99 t ti 10 2- 8- 00 IC 30 Av ve 30 20 20 ai 80 08 08 PH la 1 AR bl MA e CY AD 00 04 04 00 60 30 [...] 1 CY bl e #5 43 7 00 02 03 00 60 3 CL [...] 0 CY bl e #5 43 7 ME 59 02 03 00 21 6 CL 16 No Ac TH 74 -0 -2 .0 IN 39 t ti YL 60 4- 6- 00 IC 80 Av ve NE 00 20 20 ai ED 10 08 08 PH la NI 3 AR bl SO MA e LO CY NE 4 MG DO SE PK 00 02 03 00 36 8 CL 16 No Ac 60 -0 -2 .0 IN 39 t ti 35 4- 6- 00 IC 81 Av ve 46 20 20 ai 72 08 08 PH la 1 AR bl MA e CY NE 00 01 03 00 30 13 CV 44 No Ac ED 59 -2 -2 .0 S 69 t ti NI 15 8- 6- 00 PH 53 Av ve SO 44 20 20 AR ai NE 30 08 08 MA la 1 CY bl 20 e #5 MG 43 7 TA BL ET LY 00 11 03 01 60 30 [...] la 0 AR bl MA e CY AD 00 11 03 01 60 30 CL 15 No Ac VA 17 -1 -2 .0 IN 89 t ti IR 30 4- 4- 00 IC 77 Av ve 69 20 20 ai 25 60 07 08 PH la 0- 0 AR bl 50 MA e CY DI SK US 17 12 03 01 17 25 CL 16 No Ac 27 -0 -2 .0 IN 00 t ti 00 3- 4- 00 IC 61 Av ve 72 20 20 ai 10 07 08 PH la 1 AR bl MA e CY Procedures Procedure DOS Code Location Performer Comment [...] O2 SYS RENT; FLWMTR HUMIDFR&M ASK COLLECTIO 96438 [facility]OD [facility] VENIPUNCT URE BLOOD 47536 [facility] COUNT [facility] COMPLETE INC INC AUTO&AUTO DIFRNTL WBC PRESSURIZ 52963 [facility] [facility] ED/NONPRE 7 [facility] SSURIZED INC INC INHALATIO N TREATMENT NONINVASI 67783 [place] [facility] VE [facility] EAR/PULSE INC INC OXIMETRY SINGLE DETER BASIC 98356 [place] [facility] METABOLIC 7 [facility] PANEL INC INC CALCIUM TOTAL BASIC 83746 [place] [facility] METABOLIC 7 [facility] PANEL INC INC CALCIUM TOTAL PRESSURIZ 45847 [place] [facility] ED/NONPRE 7 [facility] SSURIZED INC INC INHALATIO N TREATMENT THER 57291 [place] [facility] PROPH/DX [facility] NJX IV INC INC PUSH SINGLE/1S T SBST/DRUG NONINVASI 72300 [place] [facility] VE [facility] EAR/PULSE INC INC OXIMETRY SINGLE DETER THERAPEUT 88669 [place] [facility]UO IC [facility] INJECTION INC INC IV PUSH EACH NEW DRUG COLLECTIO 51570 [place] [facility] N VENOUS 7 [facility] BLOOD INC INC VENIPUNCT [facility] G0378 [place] [facility] OBSERVATI [facility] ON INC [facility] G0378 [place] [facility] OBSERVATI 7 [facility] ON INC INC SERVICE [facility] PRESSURIZ 04716 [place] [facility] ED/NONPRE 7 [facility] SSURIZED INC INC INHALATIO N TREATMENT NONINVASI 24023 [place] [facility] VE [facility] EAR/PULSE INC INC OXIMETRY SINGLE DETER PRESSURIZ 98278 [place] [facility] ED/NONPRE 7 [facility] SSURIZED INC INC INHALATIO N TREATMENT BLOOD 13727 [place] [facility] COUNT [facility] COMPLETE INC INC AUTO&AUTO DIFRNTL WBC ECG 89294 [place] [facility] ROUTINE 7 [facility] ECG INC INC W/LEAST 12 LDS TRCG ONLY W/[place] I&[place] [address] [place] [facility] TROPONIN 7 [facility] QUANTITAT INC INC CARLOS ECG 88463 [place] ADAMS ROUTINE 7 [facility] W/LEAST P 12 LDS I&R ONLY COMPREHEN 22499 [facility] SIVE 7 [facility] METABOLIC INC INC PANEL CREATINE 36779 K[facility] YOU KINASE MB 7 [facility] FRACTION INC INC ONLY RADIOLOGI 32297 [facility] YOU C 7 [facility] EXAMINATI INC INC ON CHEST SINGLE VIEW FRONTAL BLOOD 83802 [facility] YOU GASES ANY 7 [facility] INC INC COMBINATI ON PH PCO2 PO2 CO2 HCO3 CREATINE 51914 [facility] YOU KINASE 7 [facility] TOTAL INC INC PRTBLE E0431 PATIENT PATIENT GASEOUS 7 AIDS INC AIDS INC O2 SYS RENT; FLWMTR HUMIDFR&M ASK O2 CONC 1 E1390 PATIENT PATIENT DEL PORT 7 AIDS INC AIDS INC 85%/>02 [facility] AT [facility] FLW RATE PHYS [id number] [facility] [address] [place] [address]-COVR INTERNAL [facility] RE-CERT [facility] [address] [facility] [address] [place] [address] INTERNAL MANAGEMEN MED T 30 MIN/< SBSQ [id number]/DAY INTERNAL 25 MED MINUTES SBSQ [id number]/DAY INTERNAL 25 MED MINUTES ECG 35587 KENYATTA DIAZ JR ROUTINE 7 [facility] W/LEAST P 12 LDS I&R ONLY ECG 17953 KENYATTA ADAMS ROUTINE 7 [facility] W/LEAST P 12 LDS I&R ONLY RADIOLOGI 13010 [facility] EXAM 7 MEDICAL CHEST 2 IMAGING VIEWS ASS FRONTAL&L ATERAL PRTBLE E0431 PATIENT PATIENT GASEOUS 7 AIDS INC AIDS INC O2 SYS RENT; FLWMTR HUMIDFR&M ASK O2 CONC 1 E1390 PATIENT PATIENT DEL PORT 7 AIDS INC AIDS INC 85%/>02 [facility] AT [facility] FLW RATE COLLECTIO [address] SMITH N VENOUS 7 [facility] BLOOD VENIPUNCT PHYSICIAN URE S PRTBLE E0431 PATIENT PATIENT GASEOUS 6 AIDS INC AIDS INC O2 SYS RENT; FLWMTR HUMIDFR&M ASK O2 CONC 1 E1390 PATIENT PATIENT DEL PORT 6 AIDS INC AIDS INC 85%/>02 [facility] AT [facility] G0378 [facility] YOU OBSERVATI 6 [facility] ON INC INC SERVICE PER HOUR PRESSURIZ 61206 K[facility] YOU ED/NONPRE 6 [facility] SSURIZED INC INC INHALATIO N TREATMENT NONINVASI 94124 [facility] YOU VE 6 [facility] EAR/PULSE INC INC OXIMETRY SINGLE DETER PRESSURIZ 77831 [facility] YOU ED/NONPRE 6 [facility] SSURIZED INC INC INHALATIO N TREATMENT NONINVASI 72993 [facility] YOU VE 6 [facility] EAR/PULSE INC INC OXIMETRY SINGLE [facility] G0378 [place] YOU OBSERVATI 6 [facility] ON INC INC SERVICE PER [facility]OUR [facility] G0378 [facility] YOU OBSERVATI 6 [facility] ON INC INC SERVICE PER HOUR COLLECTIO 95984 [place] YOU N VENOUS 6 [facility] BLOOD INC INC VENIPUNCT URE NONINVASI 56860 [facility] YOU VE 6 [facility] EAR/PULSE INC INC OXIMETRY SINGLE DETER PRESSURIZ 11303 [facility] YOU ED/NONPRE 6 [facility] SSURIZED INC INC INHALATIO N TREATMENT BLOOD 90591 [place] YOU COUNT 6 [facility] COMPLETE INC INC AUTO&AUTO DIFRNTL WBC BASIC 15995 [facility] YOU METABOLIC 6 [facility] PANEL INC INC CALCIUM TOTAL ECG 33272 [facility] YOU ROUTINE 6 [facility] ECG INC INC W/LEAST 12 LDS TRCG ONLY W/O I&R RADIOLOGI 04885 [facility] C EXAM 6 MEDICAL CHEST 2 IMAGING VIEWS ASS FRONTAL&[place] [address] K[place]TA YOU TROPONIN 6 [facility] QUANTITAT INC INC CARLOS BLOOD 38599 [place] YOU COUNT 6 [facility] COMPLETE INC INC AUTO&AUTO DIFRNTL WBC ECG 07408 KENYATTA DIAZ JR ROUTINE 6 [facility] W/LEAST P 12 LDS I&[place] [address] KENYATTA YOU INFUSION 6 [facility] THERAPY/P INC INC ROPHYLAXI S /DX 1ST TO 1 HR THERAPEUT 74978 [facility] YOU IC 6 [facility] INJECTION INC INC IV PUSH EACH NEW DRUG COMPREHEN 83570 [facility] YOU SIVE 6 [facility] METABOLIC INC INC PANEL CREATINE 20222 KENY[place]TA YOU KINASE MB 6 [facility] FRACTION INC INC ONLY [place] OF [address] K[facility]YATTA YOU LACTATE 6 [facility] [id number] KENYATTA YOU OBSERVATI 6 [facility] ON INC INC SERVICE PER HOUR BLOOD 53326 KENYATTA YOU GASES ANY 6 [facility] INC INC COMBINATI ON PH PCO2 PO2 CO2 HCO3 NATRIURET 39272 KENYATTA YOU IC 6 [facility] PEPTIDE INC INC CREATINE 27641 KENYATTA YOU KINASE 6 [facility] [place] [address] KENYATTA YOU LACTATE 6 [facility] INC RADIOLOGI 44406 [facility] 6 MEDICAL EXAMINATI IMAGING ON CHEST ASS SINGLE VIEW FRONTAL COMPREHEN 90776 KENYATTA YOU SIVE 6 [facility] METABOLIC INC INC PANEL THERAPEUT 21421 KENYATTA YOU IC 6 [facility] INJECTION INC INC IV PUSH EACH NEW DRUG PRESSURIZ 48839 KENYATTA YOU ED/NONPRE 6 [facility] SSURIZED INC INC INHALATIO N TREATMENT CULTURE 16260 KENYATTA YOU BACTERIAL 6 [facility] BLOOD INC INC AEROBIC W/ID ISOLATES THER 95259 KENYATTA YOU PROPH/DX 6 [facility] NJX IV INC INC PUSH SINGLE/1S T SBST/DRUG BLOOD 62587 KENYATTA YOU COUNT 6 [facility] COMPLETE INC INC AUTO&AUTO DIFRNTL WBC PRTBLE E0431 PATIENT PATIENT GASEOUS 6 AIDS INC AIDS INC O2 SYS RENT; FLWMTR HUMIDFR&M ASK O2 CONC 1 E1390 PATIENT PATIENT DEL PORT 6 AIDS INC AIDS INC 85%/>02 CONC AT [facility] FLW RATE GLUC BLD 94113 KENYATTA YOU GLUC MNTR 6 [facility] DEV INC INC CLEARED FDA SPEC HOME USE COMPREHEN 89732 KENY[facility]TA YOU SIVE 6 [facility] METABOLIC INC INC PANEL COLLECTIO 75960 KENYATTA YOU N VENOUS 6 [facility] G0378 KEN[facility] YOU OBSERVATI 6 [facility] ON INC INC SERVICE PER HOUR BLOOD 38337 KENY[place]TA YOU COUNT 6 [facility] COMPLETE INC INC AUTO&AUTO DIFRNTL WBC PRESSURIZ 23639 KENY[facility]TA YOU ED/NONPRE 6 [facility] SSURIZED INC INC INHALATIO N TREATMENT NONINVASI 79780 KENY[facility]TA YOU VE 6 [facility] EAR/PULSE INC INC OXIMETRY SINGLE DETER NONINVASI 77738 K[facility]TA YOU VE 6 [facility] EAR/PULSE INC INC OXIMETRY SINGLE DETER PRESSURIZ 36828 KENYATTA YOU ED/NONPRE 6 [facility] SSURIZED INC INC INHALATIO N TREATMENT HOSPITAL G0378 KEN[facility]TA YOU OBSERVATI 6 [facility] ON INC INC SERVICE PER HOUR GLUC BLD 47935 KENYATTA YOU GLUC MNTR 6 [facility] DEV INC INC CLEARED FDA SPEC HOME USE GLUC BLD 85371 KENYATTA YOU GLUC MNTR 6 [facility] DEV INC INC CLEARED FDA SPEC HOME USE CREATINE 75138 KENYATTA YOU KINASE 6 [facility]PITAL G0378 KENY[place]TA YOU OBSERVATI 6 [facility] ON INC INC SERVICE PER HOUR COMPREHEN 30503 KENYATTA YOU SIVE 6 [facility] METABOLIC INC INC PANEL CREATINE 41427 KENYATTA YOU KINASE MB 6 [facility] FRACTION INC INC ONLY RADIOLOGI 48972 KENYATTA YOU C 6 [facility] EXAMINATI INC INC [place] [address] KENYATTA YOU LACTATE 6 [facility] INC INC CULTURE 91353 KENYATTA YOU BACTERIAL 6 [facility] BLOOD INC [place] W/[place] [address] KENYATTA YOU INFUSION 6 [facility] THERAPY/P INC INC ROPHYLAXI S /DX 1ST TO 1 HR NONINVASI 80203 KENYATTA YOU VE 6 [facility] EAR/PULSE INC INC OXIMETRY SINGLE DETER PRESSURIZ 49807 KENYATTA YOU ED/NONPRE 6 [facility] SSURIZED INC INC INHALATIO N TREATMENT THERAPEUT 10114 KENYATTA YOU IC 6 [facility] INJECTION INC INC IV PUSH EACH NEW DRUG INITIAL 87478 [facility] OBSERVATI 6 PHYSICIAN EUG ON S GROUP CARE/DAY 50 MINUTES BLOOD 80558 KENYATTA YOU COUNT 6 [facility] COMPLETE INC INC AUTO&AUTO DIFRNTL WBC ECG 75354 KENYATTA YOU ROUTINE 6 [facility] HOSP ECG INC INC W/LEAST 12 LDS TRCG ONLY W/O I&[place] [address] KENYATTA YOU TROPONIN 6 [facility] HOSP QUANTITAT INC INC CARLOS ECG 93319 KENYATTA DIAZ JR ROUTINE 6 [facility] W/LEAST P 12 LDS I&R ONLY PRTBLE E0431 PATIENT PATIENT GASEOUS 6 AIDS INC AIDS INC O2 SYS RENT; FLWMTR HUMIDFR&M ASK O2 CONC 1 E1390 PATIENT PATIENT DEL PORT 6 AIDS INC AIDS INC 85%/>02 CONC AT PRSC FLW RATE O2 CONC 1 E1390 PATIENT TSESA DEL PORT 6 AIDS INC BERNICE 85%/>02 [...] O2 SYS RENT; FLWMTR HUMIDFR&M ASK RADEX 75162 RADIOLOGY [facility] SPINE 6 LUMBOSACR ASSOCIATE AL 2/3 S OF NOTH VIEWS RADEX 06934 [facility] SPINE 6 [facility] LUMBOSACR FT FT AL BOBBY ROSALES MINIMUM 4 VIEWS RADEX 29833 RADIOLOGY [facility] HIPS 6 BILATERAL ASSOCIATE WITH S OF NOTH PELVIS 2 VIEWS PRTBLE E0431 PATIENT PATIENT GASEOUS 6 AIDS [...] INC O2 SYS RENT; FLWMTR [place] [address] [place] [facility] [address] [place] [address] PATHOLOGY MED CTR GROSS&DIONNA ROSCOPIC EXAM ANES 05963 ANESTHESI BAKER LOLA UPPER GI 6 A GROUP ENDOSCOPY PRACTICE PROXIMAL TO DUODENUM INITIAL [address] CARE/DAY 50 PHYSICIAN MINUTES S SBSQ [address] CARE/DAY 25 PHYSICIAN MINUTES S SBSQ [address] CARE/DAY 25 PHYSICIAN MINUTES S SBSQ [address] CARE/DAY 25 PHYSICIAN MINUTES S SBSQ [address] CARE/DAY [address] [address] CARE/DAY 25 PHYSICIAN MINUTES S SBSQ [address] CARE/DAY 25 PHYSICIAN MINUTES S INITIAL [address] CARE/DAY [address] [place] [address] RADIOLOGY [facility]GIOGRAP 6 [facility] CHEST ASSOCIATE W/CONTRAS S OF [facility] T/NONCONT RAST RADIOLOGI 62736 RADIOLOGY [facility] 6 EXAMINATI ASSOCIATE ON CHEST S OF [facility] SINGLE VIEW FRONTAL PRTBLE E0431 PATIENT PATIENT GASEOUS 6 AIDS INC AIDS INC O2 SYS RENT; [facility] HUMIDFR&M ASK O2 CONC 1 E1390 PATIENT PATIENT DEL PORT 6 AIDS INC AIDS INC 85%/>02 CONC AT [facility] [address] MANAGEMEN PHYSICIAN T 30 S MIN/< SBSQ [address] CARE/DAY 25 PHYSICIAN MINUTES S SBSQ [address] CARE/DAY 25 PHYSICIAN MINUTES S CV STRS [address]1712 [facility] TST 6 DUNDAS ER TORIBIO XERS&/OR RX CONT PHYSICIAN ECG W/O S I&R MYOCARDIA 69463 ST GARCIA BERNICE L SPECT 6 [facility] STUDIES PHYSICIAN S CV STRS [address] ST [facility] TST 6 NATHANIEL ER TORIBIO XERS&/OR RX CONT PHYSICIAN ECG I&[place] [address] RADIOLOGY [facility] CERVICAL 6 DOT SPINE W/O ASSOCIATE CONTRAST S OF NOTH MATERIAL INITIAL 93235 [facility] 6 DUNDAS CARE/DAY 50 PHYSICIAN MINUTES S SBSQ [address] CARE/DAY 25 PHYSICIAN MINUTES S SBSQ [address] CARE/DAY 25 PHYSICIAN MINUTES S INITIAL [address] CARE/DAY 50 PHYSICIAN MINUTES S PRTBLE E0431 PATIENT PATIENT GASEOUS 5 AIDS [...] INC 85%/>02 CONC [facility] 66236 [facility] PHYSICIAN T 30 S S MIN/< DUP-SCAN 61907 [facility] XTR VEINS 5 [facility] COMPLETE MED CTR BILATERAL STUDY PRTBLE E0431 PATIENT PATIENT GASEOUS 5 AIDS [...] INC O2 SYS RENT; FLWMTR HUMIDFR&M ASK CT THORAX 76579 [facility] 5 NATHANIEL NATHANIEL W/CONTRAS FT FT T BOBBY BOBBY MATERIAL O2 CONC 1 E1390 PATIENT PATIENT [...] 85%/>02 CONC AT PRSC FLW RATE PLETHYSMO 28670 [facility] GRAPHY 5 NATHANIEL YEAR LAT LUNG VOLUMES PHYSICIAN W/[place] [address] [facility] DIFFUSING 5 NATHANIEL YEAR LAT CAPACITY PHYSICIAN S BRNCDILAT 42632 [facility] RSPSE 5 LAT SPMTRY PRE&POST- PHYSICIAN BRNCDILAT S [facility] 06858 [facility] NIV DISCHARGE MANAGEMEN PHYSICIAN T 30 S MIN/< WALKER E0143 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 FOLDING 5 STONE STONE WHEELED MEDICAL MEDICAL ADJUSTABL SVCS SVCS E/FIXED HEIGHT SEAT E0156 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 5 STONE STONE T [facility] SVCS CT THORAX 46198 RADIOLOGY [facility] 5 KAROLYN W/CONTRAS ASSOCIATE T S OF NOTH MATERIAL RADEX 27469 RADIOLOGY [facility] SHOULDER 5 COMPLETE ASSOCIATE MINIMUM 2 S OF NOTH VIEWS BRNCDILAT 75624 [facility] RSPSE 4 NATHANIEL IRF SPMTRY MED CTR PRE&[place] [address] [facility] 4 NATHANIEL IRF CAPACITY MED CTR PLETHYSMO 66233 [facility] GRAPHY 4 NATHANIEL IRF LUNG MED CTR VOLUMES W/WO AIRWAY RESIST CT THORAX 99909 RADIOLOGY [facility] BERNICE 4 W/CONTRAS ASSOCIATE T S OF NOTH MATERIAL CT THORAX [address] 4 NATHANIEL NATHANIEL W/CONTRAS FT FT T [facility] 18354 BOB BOB DISCHARGE 4 GAR GAR DAY MANAGEMEN T 30 MIN/< RADIOLOGI 02927 ADRIANA Melvin 4 MAURO EXAMINATI ON CHEST SINGLE VIEW FRONTAL CT THORAX 03038 RANJIT CHURCH 4 MAURO MAURO W/CONTRAS T MATERIAL O2 CONC [...] O2 SYS RENT; FLWMTR HUMIDFR&M ASK COMPREHEN [address] [facility] MED CTR PANEL HEAD CHAR FILTER TANK TENDER ST HEAD [place] [address] THYROID 3 [facility] STIMULATI MED CTR MED CTR NG HEAD CHAR FILTER TANK TENDER ST HEAD CHAR FILTER TANK TENDER ST HORMONE TSH LIPID [address] PANEL 3 NATHANIEL NATHANIEL MED CTR MED CTR HEAD CHAR FILTER TANK TENDER ST HEAD CHAR FILTER TANK TENDER ST BLOOD [address] COUNT 3 [facility] COMPLETE MED CTR MED CTR AUTO&AUTO HEAD CHAR FILTER TANK TENDER ST HEAD CHAR FILTER TANK TENDER ST DIFRNTL WBC PRTBLE E0431 PATIENT PATIENT GASEOUS 3 AIDS [...] O2 SYS RENT; FLWMTR HUMIDFR&M ASK COMPREHEN [address] METABOLIC MEDICAL MEDICAL PANEL C C BLOOD 47606 [facility] 3 N JORDYN N JORDYN COMPLETE AUTO&AUTO DIFRNTL WBC NONEMERG A0120 LKLP CAC LKLP CAC TRNSPRT: 3 INC INC MINI-BUS REGION 9 REGION 9 MTN AREA/OTH SYS PRTBLE E0431 PATIENT PATIENT GASEOUS 3 AIDS INC AIDS INC O2 SYS RENT; FLWMTR HUMIDFR&M ASK O2 CONC 1 E1390 PATIENT PATIENT DEL PORT 3 AIDS INC AIDS INC 85%/>02 CONC AT PRS FLW RATE RADEX [address] SPINE 3 NATHANIELANDRÉS CANTUTH LUMBOSACR FT FT AL 2/3 BOBBY BOBBY VIEWS PRTBLE E0431 PATIENT PATIENT GASEOUS 3 AIDS INC AIDS INC O2 SYS RENT; FLWMTR HUMIDFR&M ASK PET 66089 [facility] [address] ATTENUATI ON SKULL BASE MID-THIGH FLUORODEO A[address] XYGLUCOSE 3 [facility] F-18 FDG MEDICAL MEDICAL DX [...] INC 85%/>02 CONC AT PRSC FLW RATE COMPREHEN [address] METABOLIC MEDICAL MEDICAL PANEL C C BLOOD 95889 [facility] 3 N JORDYN N JORDYN COMPLETE AUTO&AUTO DIFRNTL WBC LOCM Q9967 ST ST 300-399 3 NATHANIEL NATHANIEL MG/ML FT FT IODINE BOBBY BOBBY CONCENTRA TION PER ML CT THORAX 47328 FUNMI FUNMI 3 CHR CHR W/CONTRAS T MATERIAL PRTBLE E0431 PATIENT PATIENT GASEOUS 3 AIDS INC AIDS INC O2 SYS RENT; FLWMTR HUMIDFR&M ASK O2 CONC 1 E1390 PATIENT PATIENT DEL PORT 3 AIDS INC AIDS INC 85%/>[address] [facility] FL[facility]ATE RADJ DLVR [address] 3/> 3 NATHANIEL NATHANIEL AREAS FT FT CUSTOM BOBBY BOBBY BLKING 11-19MEV BLOOD 93430 [facility] COUNT 3 N JORDYN N JORDYN COMPLETE AUTO&AUTO DIFRNTL WBC RADJ DLVR [address] 3/> 3 NATHANIEL NATHANIEL AREAS FT FT CUSTOM BOBBY BOBBY BLKING 11-19MEV PRTBLE E0431 PATIENT PATIENT GASEOUS 3 AIDS INC AIDS INC O2 SYS RENT; FLWMTR HUMIDFR&M ASK O2 CONC 1 E1390 PATIENT PATIENT DEL PORT 3 AIDS INC AIDS INC 85%/>02 CONC AT PRSC FLW RATE RADJ DLVR [address] 3/> 3 NATHANIEL NATHANIEL AREAS FT FT CUSTOM BOBBY BOBBY BLKING 11-19MEV CONTINUIN 96064 ST G MEDICAL 3 NATHANIEL NATHANIEL PHYSICS FT FT CONSLTJ BOBBY BOBBY NE WK RADJ DLVR [address] 3/> 3 NATHANIEL NATHANIEL AREAS FT FT CUSTOM BOBBY BOBBY BLKING 11-19MEV RADJ DLVR [address] 3/> 3 NATHANIEL NATHANIEL AREAS FT FT CUSTOM BOBBY BOBBY BLKING 11-19MEV THERAPEUT 15673 ST IC 3 [facility] RADIOLOGY FT FT PORT BOBBY BOBBY IMAGES(S) RADIATION 11328 SHO BERKOWITZ PRA 3 TREATMENT MANAGEMEN T 5 TREATMENT S RADJ DLVR [address] 3/> 3 NATHANIEL NATHANIEL AREAS FT FT CUSTOM BOBBY BOBBY BLKING 11-19MEV BLOOD 25290 [facility] COUNT 3 JOSE MANUELI M MATIAS Vega COMPLETE AUTO&AUTO DIFRNTL WBC RADJ DLVR [address] 3/> 3 NATHANIEL NATHANIEL AREAS FT FT CUSTOM BOBBY BOBBY BLKING 11-19MEV CONTINUIN [address] G MEDICAL 3 NATHANIEL NATHANIEL PHYSICS FT FT CONSLTJ BOBBY BOBBY NE WK RADJ DLVR [address] 3/> 3 NATHANIEL NATHANIEL AREAS FT FT CUSTOM BOBBY BOBBY BLKING 11-19MEV RADJ DLVR [address] 3/> 3 NATHANIEL NATHANIEL AREAS FT FT CUSTOM BOBBY BOBBY BLKING 11-19MEV RADJ DLVR [address] 3/> 3 NATHANIEL NATHANIEL AREAS FT FT CUSTOM BOBBY BOBBY BLKING 11-19MEV THERAPEUT [address] IC 3 NATHANIEL NATHANIEL RADIOLOGY FT FT PORT BOBBY BOBBY IMAGES(S) RADIATION 82538 SHO BERKOWITZ PRA 3 TREATMENT MANAGEMEN T 5 TREATMENT S RADJ DLVR [address] 3/> 3 NATHANIEL NATHANIEL AREAS FT FT CUSTOM BOBBY BOBBY BLKING 11-19MEV RADJ DLVR [address] 3/> 3 NATHANIEL NATHANIEL AREAS FT FT CUSTOM BOBBY BOBBY BLKING 11-19MEV [address]INUIN [address] G MEDICAL 3 NATHANIEL NATHANIEL PHYSICS FT FT CONSLTJ BOBBY BOBBY NE WK INJECTION J9045 LEANDRA MOBLEY 3 N JORDYN COBB CARBOPLAT [place] 50 [place] [address] LEANDRA MOBLEY INFUSION 3 N JORDYN COBB THER PROPH ADDL SEQUENTIA L TO 1 HR COMPREHEN 70474 LEANDRA MOBLEY SIVE 3 N JORDYN COBB METABOLIC PANEL INJECTION J2405 LEANDRA MOBLEY 3 N JORDYN N JORDYN ONDANSETR ON HCL PER 1 MG INJECTION J9265 LEANDRA MOBLEY 3 N JORDYN N JORDYN PACLITAXE L 30 MG INJECTION J1200 LEANDRA MOBLEY 3 N JORDYN N JORDYN DIPHENHYD RAMINE HCL UP TO 50 MG BLOOD 40935 LEANDRA MOBLEY COUNT 3 N JORDYN N JORDYN COMPLETE AUTO&AUTO DIFRNTL WBC INJECTION J1100 LEANDRA MOBLEY 3 N JORDYN N JORDYN DEXAMETHO SONE SODIUM PHOSPHATE 1 MG INJECTION J2780 LEANDRA MOBLEY 3 N JORDYN N JORDYN RANITIDIN E HYDROCHLO RIDE 25 MG CHEMOTX 79870 LEANDRA MOLBEY ADMN IV 3 N JORDYN COBB NFS TQ EA SEQL NFS TO 1 HR CHEMOTX 29180 LEANDRA MOBLEY ADMN IV 3 N JORDYN N JORDYN NFS TQ UP 1 HR / SBST/DRUG RADJ DLVR [address] 3/> 3 NATHANIEL NATHANIEL AREAS FT FT CUSTOM BOBBY BOBBY BLKING 11-19MEV RADJ DLVR [address] 3/> 3 NATHANIEL NATHANIEL AREAS FT FT CUSTOM BOBBY BOBBY BLKING 11-19MEV RADJ DLVR [address] 3/> 3 NATHANIEL NATHANIEL AREAS FT FT CUSTOM BOBBY BOBBY BLKING 11-19MEV THERAPEUT [address] IC 3 NATHANIEL NATHANIEL RADIOLOGY FT FT PORT BOBBY BOBBY IMAGES(S) RADIATION 04340 SHO SHAH BERKOWITZ PRA 3 TREATMENT MANAGEMEN T 5 TREATMENT S RADJ DLVR [address] 3/> 3 NATHANIEL NATHANIEL AREAS FT FT CUSTOM BOBBY BOBBY BLKING 11-19MEV RADJ DLVR [address] 3/> 3 NATHANIEL NATHANIEL AREAS FT FT CUSTOM BOBBY BOBBY BLKING 11-19MEV CONTINUIN 33330 [facility] 3 NATHANIEL NATHANIEL PHYSICS FT FT CONSLTJ BOBBY ROSALES NE WK INJECTION J9045 LEANDRA MOBLEY 3 N JORDYN N JORDYN CARBOPLAT IN 50 MG COMPREHEN 87480 LEANDRA MOBLEY SIVE 3 N JORDYN N JORDYN METABOLIC PANEL BLOOD 50652 LEANDRA BARNESMAN COUNT 3 N JORDYN N JORDYN COMPLETE AUTO&AUTO DIFRNTL WBC BRNCDILAT 52427 [facility] BROWN-P[facility] RSPSE 3 YEAR LAT YEAR LAT SPMTRY PRE&[place] [address] [facility] DIFFUSING 3 YEAR LAT YEAR LAT CAPACITY PLETHYSMO 87484 [facility]OWN-PUR GRAPHY 3 YEAR LAT YEAR LAT LUNG VOLUMES W/WO AIRWAY RESIST RADIATION 04829 SHO SHAH BERKOWITZ PRA 3 TREATMENT MANAGEMEN T 5 TREATMENT S INJECTION J9265 LEANDRA MOBLEY 3 N JORDYN N JORDYN PACLITAXE L 30 MG INJECTION J2405 LEANDRA MOBLEY 3 N JORDYN N JORDYN ONDANSETR ON HCL PER 1 MG INJECTION J1200 LEANDRA MOBLEY 3 N JORDYN N JORDYN DIPHENHYD RAMINE HCL UP TO 50 MG INJECTION J9045 LEANDRA MOBLEY 3 N JORDYN N JORDYN CARBOPLAT IN 50 MG COMPREHEN 34359 LEANDRA MOBLEY SIVE 3 [place] [address] LEANDRA MOBLEY INFUSION 3 N JORDYN N JORDYN THER PROPH ADDL SEQUENTIA L TO 1 HR INJECTION J1100 LEANDRA MOBLEY 3 N JORDYN N JORDYN DEXAMETHO SONE SODIUM PHOSPHATE 1 MG INJECTION J2780 LEANDRA KERRI 3 N JORDYN VELASQUEZ RANITIDIN E HYDROCHLO RIDE 25 MG BLOOD 18598 LEANDRA RODRIGUES BEL COUNT 3 N JORDYN COMPLETE AUTO&AUTO DIFRNTL WBC CHEMOTX 31586 LEANDRA MOBLEY ADMN IV 3 N JORDYN N JORDYN NFS TQ EA SEQL NFS TO 1 HR CHEMOTX 78105 LE[place]DRA [place] 3 N JORDYN N JORDYN NFS TQ UP 1 HR / SBST/DRUG RADIATION 33927 SHO SHAH 3 TREATMENT MANAGEMEN T 5 TREATMENT S PRTBLE E0431 KAMALJIT MARI GASEOUS 3 HOME HOME O2 SYS MEDICAL MEDICAL RENT; EQUIPME EQUIPME FLWMTR HUMIDFR&M ASK O2 CONC 1 E1390 KAMALJIT MARI DEL PORT 3 HOME HOME 85%/>02 MEDICAL MEDICAL CONC AT EQUIPME EQUIPME PRSC FLW RATE CHEMOTX 52696 LEANDRA MOBLEY ADMN IV 3 N JORDYN N JORDYN NFS TQ UP 1 HR SBST/DRUG INJECTION J1200 LEANDRA MOBLEY 3 N JORDYN N JORDYN DIPHENHYD RAMINE HCL UP TO 50 MG INJECTION J9265 LEANDRA MOBLEY 3 N JORDYN N JORDYN PACLITAXE L 30 MG INJECTION J2405 LEANDRA MOBLEY 3 N JORDYN N JORDYN ONDANSETR ON HCL PER 1 MG COMPREHEN 67437 LEANDRA MOBLEY SIVE 3 N JORDYN N JORDYN METABOLIC PANEL INJECTION J9045 LEANDRA MOBLEY 3 N JORDYN N JORDYN CARBOPLAT IN 50 [place] IV 76831 LEANDRA MOBLEY INFUSION 3 N JORDYN N JORDYN THER PROPH ADDL SEQUENTIA L TO 1 HR CHEMOTX 42086 LEANDRA MOBLEY ADMN IV 3 N JORDYN N JORDYN NFS TQ EA SEQL NFS TO 1 HR BLOOD 25602 LEANDRA OLSONKEMIE COUNT 3 N JORDYN JR CHRYSATL COMPLETE AUTO&AUTO DIFRNTL WBC INJECTION J2780 LEANDRA MOBLEY 3 N JORDYN N JORDYN RANITIDIN E HYDROCHLO RIDE 25 MG INJECTION J1100 LEANDRA MOBLEY 3 N JORDYN N JORDYN DEXAMETHO SONE SODIUM PHOSPHATE 1 MG RADIATION 80252 SHO BERKOWITZ PRA 3 TREATMENT MANAGEMEN T 5 TREATMENT S INJECTION J9265 LEANDRA MOBLEY 3 N JORDYN N JORDYN PACLITAXE L 30 MG INJECTION J9045 LEANDRA MOBLEY 3 N JORDYN N JORDYN CARBOPLAT IN 50 MG INJECTION J1200 LEANDRA MOBLEY 3 N JORDYN N JORDYN DIPHENHYD RAMINE HCL UP TO 50 [place] [address] LEANDRA MOBLEY INFUSION 3 N JORDYN N JORDYN THER PROPH ADDL SEQUENTIA L TO 1 HR COMPREHEN 35043 LEANDRA MOBLEY SIVE 3 N JORDYN N JORDYN METABOLIC PANEL INJECTION J1100 LEANDRA MOBLEY 3 N JORDYN N JORDYN DEXAMETHO SONE SODIUM PHOSPHATE 1 MG INJECTION J2780 LEANDRA MOBLEY 3 N [facility] N JORDYN RANITIDIN E HYDROCHLO RIDE 25 MG BLOOD 14067 LEANDRA MOBLEY COUNT 3 N JORDYN N [facility] COMPLETE AUTO&AUTO DIFRNTL WBC CHEMOTX 77380 LEANDRA MOBLEY ADMN IV 3 N JORDYN N [facility] NFS TQ EA SEQL NFS TO 1 HR CHEMOTX 77830 LEANDRA MOBLEY ADMN IV 3 N [facility] N [facility] NFS TQ UP 1 HR SBST/DRUG 3-D 98994 [facility] RADIOTHER 3 BRA BRA APY PLAN DOSE-VOLU ME HISTOGRAM S BASIC 91087 [facility] RADIATION 3 [place] [address] [facility] BRA BRA DESIGN & CONSTRUCT ION COMPLEX ADMN SET A7003 YOUR YOUR SM VOL 3 [facility] NEBULIZR DISPBL SPMTRY 03578 SRINIVASAN BAR SRINIVASAN BAR W/VC 3 EXPIRATOR Y JONATHAN W/[place] [address] [facility] GUIDANCE 3 RADIATION THERAPY FLDS PLACEMENT THER RAD 14177 SHO SHAH SIMULAJ-A 3 IDED FIELD SETTING COMPLEX THERAPEUT 84779 SHO SHAH IC 3 RADIOLOGY [place] [address] [facility] 3 [place] PET [place] PET [employer]ULL [employer] BASE TO MID-THIGH FLUORODEO A9552 [facility] XYGLUCOSE 3 [place] PET [place] PET F-18 [employer] DX UP TO 45 MCI O2 CONC 1 E1390 KAMALJIT MARTINEZ PORT 3 HOME HOME 85%/>02 MEDICAL MEDICAL CONC [facility] PRTBLE E0431 KAMALJIT MARI GASEOUS 3 HOME HOME O2 SYS MEDICAL MEDICAL RENT; EQUIPOR EQUIPOR FLWMTR HUMIDFR&M ASK BLOOD 50305 LEANDRA MOBLEY COUNT 3 N [facility]YN N [facility] COMPLETE AUTO&AUTO DIFRNTL WBC BLOOD 56059 [place] YOU COUNT 3 [facility] COMPLETE INC INC AUTO&AUTO DIFRNTL WBC ADMN SET A7003 YOUR YOUR SM VOL 3 PHARMACY PHARMACY NONFMT. [facility] PNEUMAT NEBULIZR DISPBL COMPREHEN 84715 [place] YOU SIVE 3 [facility] METABOLIC INC INC PANEL PRTBLE E0431 KAMALJIT MARI GASEOUS 3 HOME HOME O2 SYS MEDICAL MEDICAL RENT; EQUIPOR EQUIPOR FLWMTR HUMIDFR&M ASK O2 CONC 1 E1390 KAMALJIT MARTINEZ PORT 3 HOME HOME 85%/>02 [facility]ATE CONSLTJ&R 42935 ERIKA JAMES EPRT 3 LOLA DAVILA SLIDES PREPARED ELSEWHERE BLOOD 01478 [place] YOU COUNT 3 [facility] COMPLETE INC INC AUTO&AUTO DIFRNTL WBC RADIOLOGI 77352 RUSS SOLANO C EXAM 3 RHEA RHEA CHEST 2 VIEWS FRONTAL&L ATERAL NONINVASI 57516 [place] YOU VE 3 [facility] EAR/PULSE INC INC OXIMETRY SINGLE DETER PRESSURIZ 75288 [place] YOU ED/NONPRE 3 [facility] SSURIZED INC INC INHALATIO N [facility] [id number] [place] YOU OBSERVATI 3 [facility] ON INC INC SERVICE PER HOUR BASIC 22659 [place] YOU METABOLIC 3 [facility] PANEL INC INC CALCIUM TOTAL OBSERVATI 55158 MCKEMIE KEMIE ON CARE 3 [place] [address] [place] YOU GUIDANCE 3 [facility] NEEDLE INC INC PLACEMENT CYTP FINE 07854 PICKLESIM PICKLESIM NDL 3 ER JR SANA ER JR SANA ASPIRATE IMMT CYTOHIST STD DX 1ST CYTP EVAL 49349 PICKLESIM PICKLESIM FINE 3 ER JR SANA ER JR SANA NEEDLE ASPIRATE INTERP & RE[place] [address] PICKLESIM PICKLESIM SURG 3 ER JR SANA ER JR SANA PATHOLOGY GROSS&DIONNA ROSCOPIC EXAM PRESSURIZ 82631 [place] YOU ED/NONPRE 3 [facility] SSURIZED INC INC INHALATIO N TREATMENT NONINVASI 49514 [place] YOU VE 3 [facility] EAR/PULSE INC INC OXIMETRY SINGLE DETER INITIAL 82260 BRYAN ADAMS OBSERVATI 3 MAURO MAURO ON CARE/DAY 30 MINUTES RADIOLOGI 59890 RUSS RUSS C EXAM 3 RHEA RHEA CHEST 2 VIEWS FRONTAL&L ATERAL CT THORAX 31818 [place] YOU W/O 3 [facility] CONTRAST INC INC MATERIAL FINE 12469 [place] YOU NEEDLE 3 [facility] ASPIRATIO INC INC N WITH IMAGING GUIDANCE ANESTHESI 77155 [facility] A CLOS[facility] 3 ANESTH CHEST OF THE NEEDLE BLUE BIOPSY PLEURA PROTHROMB 84939 [place] YOU IN TIME 3 [facility] INC INC BLOOD 31917 [place] YOU COUNT 3 [facility] COMPLETE INC INC AUTO&AUTO DIFRNTL WBC THROMBOPL 45858 [place] YOU ASTIN 3 [facility] TIME INC INC PARTIAL PLASMA/WH [facility] 54399 MCKEMIE MCKEMIE DISCHARGE 3 JR CHRYSTAL SANTOYO CHRYSTAL DAY MANAGEMEN T 30 MIN/< SBSQ 14579 [facility] 3 JR CHRYSTAL SATNOYO CHRYSTAL CARE/DAY 25 MINUTES NONINVASI 09281 [facility] 3 MAURO MAURO EAR/PULSE OXIMETRY SINGLE DETER INITIAL 08105 [facility] 3 MAURO MAURO CARE/DAY 50 MINUTES RADIOLOGI 27635 RUSS RUSS C EXAM 3 RHEA RHEA CHEST 2 VIEWS FRONTAL&L ATERAL ECG 63878 EMILY DIAZ JR ROUTINE 3 DWI DWI ECG W/LEAST 12 LDS I&[place] [address] RUSS RUSS ANGIOGRAP 3 RHEA RHEA HY CHEST W/CONTRAS T/NONCONT RAST ADMN SET A7003 YOUR YOUR SM VOL 3 PHARMACY PHARMACY NONFIL[facility] LLC LLC PNEUMAT NEBULIZR DISPBL PRTBLE E0431 KAMALJIT KAMALJIT GASEOUS 3 HOME HOME O2 SYS MEDICAL MEDICAL RENT; EQUIPME EQUIPME FLWMTR HUMIDFR&M ASK O2 CONC 1 E1390 KAMALJIT KAMALJIT DEL PORT 3 HOME HOME 85%/>02 MEDICAL MEDICAL CONC AT EQUIPME EQUIPME PRSC FLW RATE O2 CONC 1 E1390 KAMALJIT KAMALJIT DEL PORT 2 HOME HOME 85%/>02 MEDICAL MEDICAL CONC AT EQUIPME EQUIPME PRSC FLW RATE PRTBLE E0431 KAMALJIT KAMALJIT GASEOUS 2 HOME HOME O2 SYS MEDICAL MEDICAL RENT; EQUIPME EQUIPME FLWMTR HUMIDFR&M ASK ADMN SET A7003 YOUR YOUR SM VOL 2 PHARMACY PHARMACY [facility] LLC LLC PNEUMAT NEBULIZR DISPBL RADIOLOGI 89895 [place] RUSS C 2 MEDICAL RHEA EXAMINATI IMAGING ON CHEST ASS SINGLE VIEW FRONTAL GROUND A0425 [facility] MILEAGE 2 AMBULANCE AMBULANCE PER SERVICE SERVICE STATUTE MILE AMB A0427 [facility] SERVICE 2 AMBULANCE AMBULANCE ALS SERVICE SERVICE EMERGENCY TRANSPORT LEVEL 1 BRNCDILAT 07026 [facility] BEL[place] RSPSE 2 JR CHRYSTAL JARRELL SPMTRY PRE&POST- BRNCDILAT ADMN GAS 30290 BARBRA BELLE DILUT/WAS 2 JR CHRYSTAL JARRELL HOUT LUNG VOL W/WO DISTRIB VENT&V BLOOD 16832 K[facility] YOU GASES ANY 2 [facility] INC INC COMBINATI ON PH PCO2 PO2 CO2 HCO3 PRTBLE E0431 KAMALJIT SEVILLARELL GASEOUS 2 HOME HOME O2 SYS MEDICAL MEDICAL RENT; EQUIPME EQUIPME FLWMTR HUMIDFR&M ASK O2 CONC 1 E1390 KAMALJIT MARI DEL [place] 2 HOME HOME 85%/>02 MEDICAL MEDICAL CONC [facility] 52503 KENYATTA YOU RENDERING 2 [facility] INC INC W/INTERP& POSTPROC DIFF WORK STATION CT THORAX 69113 RUSS RUSS 2 RHEA RHEA W/CONTRAS T MATERIAL LOCM Q9967 KENYATTA YOU [phone] [facility] MG/ML INC INC IODINE CONCENTRA TION PER ML COMPREHEN 21037 KENYATTA YOU SIVE 2 [facility] [place] [address] KENYATTA YOU THYROID 2 [facility] STIMULATI INC INC NG HORMONE TSH CYANOCOBA 76744 KENYATTA YOU RAMBO 2 [facility] VITAMIN INC INC B-12 25 [id number] KENY[place]TA YOU HYDROXY 2 [facility] INCLUDES INC INC FRACTIONS IF PERFORMED RADIOLOGI 04452 KENYATTA YOU C EXAM 2 [facility] CHEST 2 INC INC VIEWS FRONTAL&L ATERAL LIPID 65222 KENYATTA YOU PANEL 2 [facility] INC INC BLOOD 79821 KENY[place]TA YOU COUNT 2 [facility] COMPLETE INC INC AUTO&AUTO DIFRNTL WBC PRTBLE E0431 KAMALJIT MARI GASEOUS 2 HOME HOME O2 SYS MEDICAL MEDICAL RENT; EQUIPME EQUIPME FLWMTR HUMIDFR&M ASK O2 CONC 1 E1390 KAMALJIT MARI DEL PORT 2 HOME HOME 85%/>02 MEDICAL MEDICAL CONC AT EQUIPME EQUIPME [facility] FLW RATE ADMN SET A7003 YOUR YOUR SM VOL 2 PHARMACY PHARMACY [facility] PNEUMAT NEBULIZR DISPBL PRTBLE E0431 KAMALJIT MARI GASEOUS 2 HOME HOME O2 SYS MEDICAL MEDICAL RENT; EQUIPME EQUIPME FLWMTR HUMIDFR&M ASK O2 CONC 1 E1390 KAMALJIT MARTINEZ PORT 2 HOME HOME 85%/>02 MEDICAL MEDICAL CONC AT EQUIPME EQUIPME PRSC FLW RATE O2 CONC 1 E1390 KAAMLJIT MARTINEZ PORT 2 HOME HOME 85%/>02 MEDICAL [...] YOUR YOUR SM VOL 2 [facility] P[facility]UM[facility] NEBULIZR DISPBL CYANOCOBA 21818 KENYATTA YOU RAMBO 2 MEM H[facility] VITAMIN INC INC B-12 25 27730 KENY[place]TA YOU HYDROXY 2 [facility] INCLUDES INC [place] [address] KENYATTA YOU THYROID 2 [facility] STIMULATI INC INC NG HORMONE TSH COMPREHEN 64214 KENYATTA YOU SIVE 2 [facility]OS[facility] METABOLIC INC INC PANEL LIPID 10903 KENYATTA YOU PANEL 2 [facility] INC INC BLOOD 32232 KENY[place]TA YOU COUNT 2 [facility]OS[facility] COMPLETE INC INC AUTO&AUTO DIFRNTL WBC PRTBLE E0431 KAMALJIT MARI GASEOUS 2 HOME [...] LLC PNEUMAT NEBULIZR DISPBL PRTBLE E0431 KAMALJIT SEVILLARELL GASEOUS 2 HOME HOME O2 SYS MEDICAL MEDICAL RENT; EQUIPME EQUIPME FLWMTR HUMIDFR&M ASK O2 CONC 1 E1390 KAMALJIT MARTINEZ PORT 2 HOME HOME 85%/>02 MEDICAL MEDICAL CONC AT EQUIPME EQUIPME PRSC FLW RATE ADMN SET A7003 YOUR YOUR SM VOL 2 PHARMACY PHARMACY [facility] PNEUMAT NEBULIZR DISP HOSPITAL 17488 [facility] 2 [facility] DAY INTERNAL MANAGEMEN MED T 30 MIN/< MYOCARDIA 38469 [facility] 2 [facility] MULTIPLE CARDIOLOG STUDIES Y CLINIC SBSQ 20638 [facility] 2 [facility] CARE/DAY INTERNAL 25 MED MINUTES SBSQ [address] CARE/DAY INTERNAL 25 MED MINUTES SBSQ [address] CARE/DAY INTERNAL 25 MED MINUTES CRITICAL 83860 NILSA [facility] 2 EMERGENCY ILL/INJUR SERVICES ED PATIENT INIT 30-74 MIN AMB A0427 [facility] SERVICE 2 AMBULANCE AMBULANCE ALS SERVICE SERVICE EMERGENCY TRANSPORT LEVEL 1 GROUND A0425 [facility] 2 AMBULANCE AMBULANCE PER SERVICE SERVICE STATUTE MILE INITIAL 86524 [facility] 2 [facility] CARE/DAY INTERNAL 50 MED MINUTES RADIOLOGI 19934 [place] RUSS 2 MEDICAL RHEA EXAMINATI IMAGING ON CHEST ASS SINGLE VIEW FRONTAL PRTBLE E0431 KAMALJITRACHEL MARI GASEOUS 2 HOME HOME O2 SYS MEDICAL MEDICAL RENT; EQUIPME EQUIPME FLWMTR HUMIDFR&M ASK O2 CONC 1 E1390 KAMALJIT SEIVLLARELL DEL PORT 2 HOME HOME 85%/>02 MEDICAL MEDICAL CONC AT EQUIPME EQUIPME PRSC FLW RATE NEBULIZER E0570 KAMALJITRACHEL MARI WITH 2 HOME HOME COMPRESSO MEDICAL MEDICAL R EQUIPME EQUIPME ADMN SET A7003 YOUR YOUR SM VOL 2 PHARMACY PHARMACY NON[facility]. [facility] PNEUMAT NEBULIZR DISPBL BLOOD 25230 KENYATTA YOU COUNT 2 [facility] COMPLETE INC INC AUTO&AUTO DIFRNTL WBC BASIC 53672 KENY[place]TA YOU METABOLIC 2 [facility] H[facility]OS[facility] PANEL INC INC CALCIUM TOTAL O2 CONC 1 E1390 KAMALJIT MARI DEL PORT 2 HOME HOME 85%/>02 MEDICAL MEDICAL CONC AT EQUIPME EQUIPME PRSC FLW RATE PRTBLE E0431 KAMALJITRACHEL MARI GASEOUS 2 HOME HOME O2 SYS MEDICAL MEDICAL RENT; EQUIPME EQUIPME FLWMTR HUMIDFR&M [facility] 41019 [facility] 2 [facility] DAY MANAGEMEN T 30 MIN/< SBSQ 60867 [facility] 2 [place] [facility] CARE/DAY INTERNAL 25 MED MINUTES SBSQ [phone] [place] CARE/DAY INTERNAL 25 MED MINUTES SBSQ 10672 [facility] 2 CHRYSTAL [facility] CARE/DAY 25 MINUTES SBSQ 90152 [facility] 2 CHRYSTAL [facility] CARE/DAY 35 MINUTES INITIAL 68409 [facility] 2 CHRYSTAL [facility] CARE/DAY 70 MINUTES GROUND A0425 [facility] 2 AMBULANCE AMBULANCE PER SERVICE SERVICE STATUTE MILE INTUBATIO 36674 HEBER BUCK N 2 DIONNA DIONNA ENDOTRACH EAL EMERGENCY PROCEDURE ECG 59796 HE[facility]CK ROUTINE 2 DIONNA DIONNA ECG W/LEAST 12 LDS I&R ONLY CRITICAL 58762 [facility] CARE 2 DIONNA DIONNA ILL/INJUR ED PATIENT INIT 30-74 MIN AMB A0427 [facility] SERVICE 2 AMBULANCE AMBULANCE ALS SERVICE SERVICE EMERGENCY TRANSPORT LEVEL 1 INSERTION 9604 KENYATTA YOU OF 2 [facility] ENDOTRACH INC INC EAL TUBE CONT 9671 KENYATTA YOU INVASIVE 2 [facility] MECH VENT INC INC < 96 CONSECUTI VE HOURS O2 CONC 1 E1390 KAMALJIT KAMALJIT DEL PORT 1 HOME HOME 85%/>02 MEDICAL MEDICAL CONC AT EQUIPME EQUIPME PRS FLW RATE PRTBLE E0431 KAMALJIT KAMALJIT GASEOUS 1 HOME HOME O2 SYS MEDICAL MEDICAL RENT; EQUIPME EQUIPME FLWMTR HUMIDFR&M ASK RADIOLOGI 84592 RUSS RUSS C 1 RHEA RHEA EXAMINATI ON CHEST SINGLE VIEW FRONTAL ECG 52363 HEBER BUCK ROUTINE 1 DIONNA DIONNA ECG W/LEAST 12 LDS I&R ONLY PRTBLE E0431 KAMALJIT KAMALJIT GASEOUS 1 HOME HOME O2 SYS MEDICAL MEDICAL RENT; EQUIPME EQUIPME FLWMTR HUMIDFR&M ASK O2 CONC 1 E1390 KAMALJIT KAMALJIT DEL PORT 1 HOME HOME 85%/>02 MEDICAL MEDICAL CONC AT EQUIPME EQUIPME PRSC FLW RATE BASIC 81302 KENYATTA YOU METABOLIC 1 [facility] PANEL INC INC CALCIUM TOTAL ECG 65797 KENYATTA BELLE ROUTINE 1 [facility] W/LEAST P 12 LDS I&R ONLY ECG 21668 KENYATTA YOU ROUTINE 1 [facility]OS[facility] ECG INC INC W/LEAST 12 LDS TRCG ONLY W/O I&R RADIOLOGI 58122 ERIC NEWELLCHER C EXAM 1 MEDICAL RHEA CHEST 2 IMAGING VIEWS ASS FRONTAL&L ATERAL BLOOD 66529 KENYATTA YOU COUNT 1 [facility] COMPLETE INC INC AUTO&AUTO DIFRNTL WBC CULTURE 99255 KENY[place]TA YOU BACTERIAL 1 [facility] BLOOD INC INC AEROBIC W/ID ISOLATES PRESSURIZ 14491 KENYATTA YOU ED/NONPRE 1 MEM HOS[facility]OS[facility] SSURIZED INC INC INHALATIO N TREATMENT PRTBLE E0431 KAMALJIT MARI GASEOUS 1 HOME HOME O2 SYS MEDICAL MEDICAL RENT; EQUIPME EQUIPME FLWMTR HUMIDFR&M ASK O2 CONC 1 E1390 KAMALJIT MARI DEL PORT 1 HOME HOME 85%/>02 MEDICAL MEDICAL CONC AT EQUIPME EQUIPME PRSC FLW RATE AMB A0427 [facility] 1 AMBULANCE AMBULANCE ALS SERVICE SERVICE EMERGENCY TRANSPORT LEVEL 1 AMB A0422 [facility] OXYGEN&O2 1 AMBULANCE AMBULANCE SUPPLIES SERVICE SERVICE LIFE SUSTAININ G SITUATION RADIOLOGI 99149 [facility] 1 MEDICAL RHEA EXAMINATI IMAGING ON CHEST ASS SINGLE VIEW FRONTAL GROUND A0425 [facility] MILEAGE 1 AMBULANCE AMBULANCE PER SERVICE SERVICE STATUTE MILE ALS A0398 [facility] ROUTINE 1 AMBULANCE AMBULANCE DISPOSABL SERVICE SERVICE E SUPPLIES ECG 58847 NILSA SILVERIO ROUTINE 1 EMERGENCY III CHRYSTAL ECG SERVICES W/LEAST 12 LDS I&R ONLY PRTBLE E0431 KAMALJIT [...] MEDICAL MEDICAL RENT; EQUIPME EQUIPME FLWMTR HUMIDFR&M [facility] 43355 [facility] CHR DISCHARGE 1 MED CTR MANAGEMEN T > 30 MIN SBSQ 74272 [facility] 1 NATHANIEL CARE/DAY MED CTR 25 MINUTES SBSQ 89602 [facility] 1 NATHANIEL CARE/DAY MED CTR [address] BOB ROUTINE 1 NATHANIEL GAR ECG W/LEAST PHYSICIAN 12 LDS S I&R ONLY ECG [address] [facility] BOB ROUTINE 1 NATHANIEL GAR ECG W/LEAST PHYSICIAN 12 LDS S I&R ONLY ECHO 78212 [facility] T[facility] R-T 1 NATHANIEL TORIBIO 2D W/WOM-MOD PHYSICIAN E COMPL S SPEC&COLR D INITIAL 57561 [facility] 1 NATHANIEL CARE/DAY MED CTR 70 MINUTES ALS A0398 FIRE DEPT FIRE DEPT ROUTINE 1 OF OF DISPOSABL NAFISA SKELTON E DAYTO DAYTO SUPPLIES GROUND A0425 FIRE DEPT FIRE DEPT MILEAGE 1 OF OF PER NAFISA SKELTON STATUTE DAYTO DAYTO MILE ECG 43819 DIAGNOSTI BOB ROUTINE 1 C GAR ECG CARDIOLOG W/LEAST ISTS INC 12 LDS I&R ONLY RADIOLOGI 78297 RADIOLOGY VIANEY C EXAM 1 TUS CHEST 2 ASSOCIATE VIEWS S PSC FRONTAL&L ATERAL AMB A0422 FIRE DEPT FIRE DEPT OXYGEN&O2 1 OF OF SUPPLIES NAFISA SKELTON LIFE DAYTO DAYTO SUSTAININ G SITUATION AMB A0427 FIRE DEPT FIRE DEPT SERVICE 1 OF OF ALS NAFISA SKELTON EMERGENCY DAYTO DAYTO TRANSPORT LEVEL 1 O2 CONC 1 E1390 KAMALJIT MARI DEL PORT 1 HOME MED HOME MED 85%/>02 EQUIP. L EQUIP. L CONC AT [facility] FLW RATE PRTBLE E0431 KAMALJIT MARI GASEOUS 1 HOME MED HOME MED O2 SYS EQUIP. L EQUIP. L RENT; FLWWVR HUMIDFR&M ASK PRTBLE E0431 KAMALJIT MARI GASEOUS 1 HOME MED HOME MED O2 SYS EQUIP. L EQUIP. L RENT; INWMTR HUMIDFR&M ASK O2 CONC 1 E1390 KAMALJIT MARI DEL PORT 1 HOME MED HOME MED 85%/>02 EQUIP. L EQUIP. L CONC AT [facility] FLW RATE O2 CONC 1 E1390 KAMALJIT MARI DEL PORT 1 HOME MED HOME MED 85%/>02 EQUIP. L EQUIP. L CONC AT [facility] FLW RATE PRTBLE E0431 KAMALJIT MARI GASEOUS 1 HOME MED HOME MED O2 SYS EQUIP. L EQUIP. L RENT; FLWMTR HUMIDFR&M ASK AMB A0422 FIRE DEPT FIRE DEPT OXYGEN&O2 1 OF OF SUPPLIES BELLKEMUUE BELLKEMUUE LIFE DAYTO DAYTO SUSTAININ G SITUATION NATRIURET [address] IC 1 NATHANIEL ARMSTRONG PEPTIDE FT FT BOBBY ROSALES RADIOLOGI [address] C 1 NATHANIEL ARMSTRONG EXAMINATI FT FT ON CHEST BOBBY ROSALES SINGLE VIEW FRONTAL ECG [address] ROUTINE 1 NATHANIEL ARMSTRONG ECG FT FT W/LEAST BOBBY ROSALES 12 [facility] TRCG ONLY W/O I&[place] [address] TROPONIN 1 NATHANIEL ARMSTRONG QUANTITAT FT FT CARLOS BOBBY ROSALES BLOOD [address] COUNT 1 NATHANIEL ARMSTRONG COMPLETE FT FT AUTO&AUTO BOBBY ROSALES DIFRNTL WBC THER [address] PROPH/DX 1 NATHANIEL ARMSTRONG NJX IV FT FT PUSH BOBBY ROSALES SINGLE/1S T SBST/DRUG ECG 78737 DIAGNOSTI MCDANNOLD ROUTINE 1 C PEG ECG CARDIOLOG W/LEAST ISTS INC 12 LDS I&R ONLY GROUND A0425 FIRE DEPT FIRE DEPT MILEAGE 1 OF OF PER BELLEVUUE BELLEVUUE STATUTE DAYTO DAYTO MILE ALS A0398 FIRE DEPT FIRE DEPT ROUTINE 1 OF OF DISPOSABL BELLEVUUE BELLEVUUE E DAYTO DAYTO SUPPLIES THERAPEUT [address] IC 1 NATHANIEL ARMSTRONG INJECTION FT FT IV PUSH BOBYB ROSALES EACH NEW DRUG AMB A0427 FIRE DEPT FIRE DEPT SERVICE 1 OF OF [facility] EMERGENCY DAYTO DAYTO TRANSPORT LEVEL [address] METABOLIC 1 NATHANIEL ARMSTRONG PANEL FT FT CALCIUM BOBBY ROSALES TOTAL THER 41779 ST PROPH/DX 1 NATHANIEL ARMSTRONG NJX EA FT FT SEQL IV BOBBY ROSALES PUSH SBST/DRUG FAC O2 CONC 1 E1390 KAMALJIT SEVILLARELL DEL PORT 1 HOME MED HOME MED 85%/>02 EQUIP. L EQUIP. L CONC AT [facility] FLW RATE PRTBLE E0431 KAMALJIT MARI GASEOUS 1 HOME MED HOME MED O2 SYS EQUIP. L EQUIP. L RENT; [facility] HUMIDFR&M ASK PRTBLE E0431 KAMALJIT KAMALJIT GASEOUS 1 HOME MED HOME MED O2 SYS EQUIP. L EQUIP. L RENT; [facility] HUMIDFR&M ASK O2 CONC 1 E1390 [facility] HOME MED HOME MED 85%/>02 EQUIP. L EQUIP. L CONC AT [facility] FLW RATE O2 CONC 1 E1390 [place] [address] HOME MED HOME MED 85%/>02 EQUIP. L EQUIP. L CONC AT [facility] FLW RATE PRTBLE E0431 KAMALJIT KAMALJIT GASEOUS 1 HOME MED HOME MED O2 SYS EQUIP. L EQUIP. L RENT; [facility] HUMIDFR&M [facility] 30129 [facility] DISCHARGE 1 [facility] DAY MED CTR MANAGEMEN T 30 MIN/< SBSQ 99172 [facility] 1 [facility] CARE/DAY MED CTR 25 MINUTES ECG 34153 DIAGNOSTI MCDANNOLD ROUTINE 1 C PEG ECG CARDIOLOG W/LEAST ISTS INC 12 LDS I&R ONLY ECG 68412 DIAGNOSTI MCDANNOLD ROUTINE 1 C PEG ECG CARDIOLOG W/LEAST ISTS INC 12 LDS I&R ONLY ALS A0398 FIRE DEPT FIRE DEPT ROUTINE 1 OF OF DISPOSABL NAFISA SKELTON E DAYTO DAYTO SUPPLIES GROUND A0425 FIRE DEPT FIRE DEPT MILEAGE 1 OF OF LALIT SKELTON STATUTE DAYTO DAYTO MILE RADIOLOGI 83813 RADIOLOGY SCHMITTER C 1 MICAH EXAMINATI ASSOCIATE ON [place] [address] RADIOLOGY DARDINGER ANGIOGRAP 1 MICAH HY CHEST ASSOCIATE W/CONTRAS S PSC T/NONCONT RAST AMB A0427 FIRE DEPT FIRE DEPT SERVICE 1 OF OF JAIDEN SKELTON EMERGENCY DAYTO DAYTO TRANSPORT LEVEL 1 O2 CONC 1 E1390 KAMALJIT MARI DEL PORT 0 HOME MED HOME MED 85%/>02 EQUIP. L EQUIP. L CONC AT [facility] FLW RATE PRTBLE E0431 KAMALJIT MARI GASEOUS 0 HOME MED HOME MED O2 SYS EQUIP. L EQUIP. L RENT; FLWMTR [facility] [address] [facility] DISCHARGE 0 NATHANIEL RAJ DAY MED CTR MANAGEMEN T > 30 MIN [facility] 21576 [facility]DAY MED CTR 25 MINUTES [facility] 61945 [facility] 0 [facility] CARE/DAY MED CTR 25 MINUTES CRITICAL 56947 EMERGENCY SEJAL CARE 0 CARE ILSA ILL/INJUR PHYS ED [facility] PATIENT INIT 30-74 MIN [facility] A0427 FIRE DEPT FIRE DEPT SERVICE 0 OF OF JAIDEN SKELTON EMERGENCY DAYTO DAYTO TRANSPORT LEVEL 1 AMB A0422 FIRE DEPT FIRE DEPT OXYGEN&O2 0 OF OF SUPPLIES NAFISA SKELTON LIFE DAYTO DAYTO SUSTAININ G SITUATION RADIOLOGI 02345 RADIOLOGY NEILS LEO C 0 EXAMINATI ASSOCIATE ON CHEST S PSC SINGLE VIEW FRONTAL GROUND A0425 FIRE DEPT FIRE DEPT MILEAGE 0 OF OF LALIT SKELTON STATUTE DAYTO DAYTO MILE INITIAL 50635 [facility] 0 NATHANIEL GERRI CARE/DAY MED CTR 50 MINUTES ALS A0398 FIRE DEPT FIRE DEPT ROUTINE 0 OF OF DISPOSABL TARIQUUE BELLEVUUE E DAYTO DAYTO SUPPLIES ECG [address] RO NIV ROUTINE 0 C ECG CARDIOLOG W/LEAST ISTS INC 12 LDS I&R ONLY PRTBLE E0431 KAMALJIT MARI GASEOUS 0 HOME MED HOME MED O2 SYS EQUIP. L EQUIP. L RENT; [facility] HUMIDFR&M ASK O2 CONC 1 E1390 KAMALJIT MARI DEL PORT 0 HOME MED HOME MED 85%/>02 EQUIP. L EQUIP. L CONC AT [facility] 70695 [facility] DISCHARGE 0 NATHANIEL DAY MED CTR MANAGEMEN T > 30 MIN SBSQ 26537 [facility] 0 NATHANIEL CARE/DAY MED CTR 25 MINUTES RADIOLOGI 55271 RADIOLOGY VIANEY C EXAM 0 TUS CHEST 2 ASSOCIATE VIEWS S PSC FRONTAL&L ATERAL INITIAL 44147 [facility] 0 NATHANIEL CARE/DAY [place] [address] [place] [address] RADIOLOGY RANJIT LIMITED/L 0 MAURO OCALIZED ASSOCIATE FOLLOW UP S PSC STUDY AMB A0422 FIRE DEPT FIRE DEPT OXYGEN&O2 0 OF OF SUPPLIES FRANCESCOE TARIQUUE LIFE DAYTO DAYTO SUSTAININ G SITUATION ALS A0398 FIRE DEPT FIRE DEPT ROUTINE 0 OF OF DISPOSABL TARIQUUE BELLEVUUE E DAYTO DAYTO SUPPLIES GROUND A0425 FIRE DEPT FIRE DEPT MILEAGE 0 OF OF PER TARIQUUE TARIQUUE STATUTE DAYTO DAYTO MILE ECG 91029 DIAGNOSTI RO NIV ROUTINE 0 C ECG CARDIOLOG W/LEAST ISTS INC 12 LDS I&R ONLY CRITICAL 84128 EMERGENCY VEST QUIANA CARE 0 CARE ILL/INJUR PHYS ED [facility]THERN PATIENT INIT 30-74 MIN RADIOLOGI 79702 RADIOLOGY SURESH BYR C 0 EXAMINATI ASSOCIATE ON CHEST S PSC SINGLE VIEW FRONTAL AMB A0427 FIRE DEPT FIRE DEPT SERVICE 0 OF OF JAIDEN [facility] EMERGENCY DAYTO DAYTO TRANSPORT LEVEL 1 O2 CONC 1 E1390 KAMALJIT KAMALJIT DEL PORT 0 HOME MED HOME MED 85%/>02 EQUIP. L EQUIP. L CONC AT [facility] FLW RATE PRTBLE E0431 KAMALJIT KAMALJIT GASEOUS 0 HOME MED HOME MED O2 SYS EQUIP. L EQUIP. L RENT; [facility] H[facility] ASK PRTBLE E0431 KAMALJIT KAMALJIT GASEOUS 0 HOME MED HOME MED O2 SYS EQUIP. L EQUIP. L RENT; [facility] HUMIDFR&M ASK O2 CONC 1 E1390 KAMALJIT KAMALJIT DEL PORT 0 HOME MED HOME MED 85%/>02 EQUIP. L EQUIP. L CONC AT [facility] FLW RATE O2 CONC 1 E1390 KAMALJIT KAMALJIT DEL PORT 0 HOME MED HOME MED 85%/>02 EQUIP. L EQUIP. L [facility]0431 KAMALJIT KAMALJIT GASEOUS 0 HOME MED HOME MED O2 SYS EQUIP. L EQUIP. L RENT; [facility] HUMIDFR&M ASK PRTBLE E0431 KAMALJIT KAMALJIT GASEOUS 0 HOME MED HOME MED O2 SYS EQUIP. EQUIP. RENT; [facility] HUMIDFR&M ASK O2 CONC 1 E1390 KAMALJIT KAMALJIT DEL PORT 0 HOME MED HOME MED 85%/>02 EQUIP. EQUIP. [facility]C 1 E1390 KAMALJIT KAMALJIT DEL PORT 0 HOME MED HOME MED 85%/>02 EQUIP. EQUIP. CONC AT [facility] PRTBLE E0431 KAMALJIT KAMALJIT GASEOUS 0 HOME MED HOME MED O2 SYS EQUIP. EQUIP. RENT; [facility] HUMIDFR&M ASK PRTBLE E0431 KAMALJIT KAMALJIT GASEOUS 0 HOME MED HOME MED O2 SYS EQUIP. EQUIP. RENT; [facility] HUMIDFR&M ASK O2 CONC 1 E1390 KAMALJIT KAMALJIT DEL PORT 0 HOME MED HOME MED 85%/>02 EQUIP. EQUIP. CONC AT [facility] FLW RATE O2 CONC 1 E1390 KAMALJIT KAMALJIT DEL PORT 0 HOME MED HOME MED 85%/>02 EQUIP. EQUIP. CONC AT [facility] FLW RATE PRTBLE E0431 KAMALJIT KAMALJIT GASEOUS 0 HOME MED HOME MED O2 SYS EQUIP. EQUIP. RENT; [facility] FLWMTR HUMIDFR&M ASK PRTBLE E0431 KAMALJIT KAMALJIT GASEOUS 0 HOME MED HOME MED O2 SYS EQUIP. EQUIP. RENT; [facility] FLWMTR HUMIDFR&M ASK O2 CONC 1 E1390 KAMALJIT SEVILLARELL DEL PORT 0 HOME MED HOME MED 85%/>02 EQUIP. EQUIP. CONC AT [facility] FLW RATE ANESTHESI 63042 INDEPENDE CHAPISROOR, A EYE 0 NT ALAM LENS ANESTHESI SURGERY OLOGIST CATARACT 61528 [facility], REMOVAL 0 I EYE [facility] CATARACT 52211 [facility], REMOVAL 0 I EYE [facility] ANESTHESI 80468 INDEPENDE HINTON, A EYE 0 NT FAVIOLA LENS ANESTHESI J SURGERY OLOGIST OPH BMTRY 64766 [facility], PRTL 0 I EYE [facility] INTRFRMTR Y IO LENS PWR JAIRON OPHTH 30264 [facility] 9 I EYE CANDY Shea [facility] COMPRHNSV ESTAB PT 1/> HOSPITAL 18649 PATIENT [facility], DISCHARGE 9 FIRST CASSANDRA G DAY PHYS MANAGEMEN T 30 MIN/< INITIAL 64395 PATIENT [facility], HOSPITAL 9 FIRST CASSANDRA G CARE/DAY PHYS 70 MINUTES ECG 84579 [address], ROUTINE 9 C NIVA ECG CARDIOLOG W/LEAST ISTS INC 12 LDS I&R ONLY RHYTHM 27628 EMERGENCY HERFEL, ECG 1-3 9 CARE AGUILAR U LEADS PHYS INTERPRET [place] REPRT ON RADIOLOGI 13084 RADIOLOGY Olegario MARTINEZ 9 ROBERT Shea EXAMINATI ASSOCIATE ON CHEST S PSC [facility] 68312 PATIENT [facility], DISCHARGE 9 FIRST [place] C DAY PHYS MANAGEMEN T 30 MIN/< RADIOLOGI 05140 RADIOLOGY Olegario SLAUGHTER EXAM 9 KO H CHEST 2 ASSOCIATE VIEWS S PSC FRONTAL&L ATERAL SBSQ 87741 PATIENT [facility] 9 FIRST [place] C CARE/DAY PHYS 25 MINUTES SBSQ 16832 PATIENT [facility] 9 FIRST [place] C CARE/DAY PHYS 25 MINUTES SBSQ 00795 PATIENT [facility] 9 FIRST [place] C CARE/DAY PHYS 25 MINUTES SBSQ 96228 PATIENT [facility] 9 FIRST [place] C CARE/DAY PHYS 25 MINUTES INITIAL 40142 PATIENT [facility] 9 FIRST [place] CARE/DAY PHYS 50 MINUTES GROUND A0425 [facility] MILEAGE 9 CO FIRE CO FIRE PER PROTECTIO PROTECTIO STATUTE N DIST #1 N DIST #1 MILE AMBULANCE A0429 [facility] 9 CO FIRE CO FIRE BLS PROTECTIO PROTECTIO EMERGENCY N DIST #1 N DIST #1 TRANSPORT ECG 77085 DIAGNOSTI JAYJAY, ROUTINE 9 C NIVA ECG CARDIOLOG W/LEAST ISTS INC 12 LDS I&R ONLY RADIOLOGI 97466 RADIOLOGY Olegario FOX EXAMINAMYRTLE ASSOCIATE ON CHEST S PSC [facility] A0422 [facility] OXYGEN&O2 9 CO FIRE CO FIRE SUPPLIES PROTECTIO PROTECTIO LIFE N DIST #1 N DIST #1 [facility] 59205 PATIENT [facility], DISCHARGE 9 FIRST [place] DAY PHYS MANAGEMEN T 30 MIN/< SBSQ 98111 PATIENT [facility] 9 FIRST [place] CARE/DAY PHYS 25 MINUTES SBSQ 16109 PATIENT [facility] 9 FIRST [place] C CARE/DAY PHYS 25 MINUTES SBSQ 15576 PATIENT [facility] 9 FIRST [place] CARE/DAY PHYS 25 MINUTES ECG 98219 DIAGNOSTI JOHANNE ROUTINE 9 C , TATE J ECG CARDIOLOG W/LEAST ISTS INC 12 LDS I&R ONLY ECG 06441 DIAGNOSTI MCDANNOLD ROUTINE 9 C , TATE J ECG CARDIOLOG W/LEAST ISTS INC 12 LDS I&R ONLY RADIOLOGI 70848 RADIOLOGY Olegario STONE EXAM 9 CHEST 2 ASSOCIATE NATHANIEL Meehan PSC A FRONTAL&L ATERAL GROUND A0425 [facility] MILEAGE 9 CO FIRE CO FIRE PER PROTECTIO PROTECTIO STATUTE N DIST #1 N DIST #1 MILE ALS A0398 [facility] ROUTINE 9 CO FIRE CO FIRE DISPOSABL PROTECTIO PROTECTIO E N DIST #1 N DIST #1 SUPPLIES INITIAL 05775 PATIENT [facility] 9 FIRST [place] CARE/DAY PHYS 50 MINUTES RHYTHM 05465 EMERGENCY JUAN ANTONIO, ECG 1-3 9 CARE MIMI D LEADS PHYS INTERPRET [place] REPRT ON AMB A0427 [facility] 9 CO FIRE CO FIRE ALS PROTECTIO PROTECTIO EMERGENCY N DIST #1 N DIST #1 TRANSPORT LEVEL 1 OPH 72527 JIMBO ALEGRIA, MEDICAL 9 VISION CARLA M XM&EVAL COMPRE NEW PT 1/> VST HEPATIC 35440 [facility] FUNCTION 9 [facility] PANEL INC INC LIPID [id number] [facility] PANEL 9 [facility] INC INC BASIC 53039 [facility] METABOLIC 9 [facility] 88410 [facility] 9 Jamee SANTOYO V JR, J V DAY MANAGEMEN T 30 MIN/< SBSQ 10295 [facility] 9 , J V JR, J V CARE/DAY 15 MINUTES SBSQ 11555 [facility] 9 , J V JR, J V CARE/DAY 25 MINUTES AMB A0427 [facility] SERVICE 9 AMBULANCE AMBULANCE ALS SERVICE SERVICE EMERGENCY TRANSPORT LEVEL 1 INITIAL 67803 [facility] 9 JR J V JR, J V CARE/DAY 50 MINUTES GROUND A0425 [facility] MILEAGE 9 AMBULANCE AMBULANCE PER SERVICE SERVICE STATUTE MILE ECG 88929 KENYATTA ADAMS, ROUTINE 9 [facility] W/LEAST PROF SERV 12 LDS I&R ONLY RADIOLOGI 13662 Olegario MOLINA 9 MEDICAL CAROL EXAMINATI IMAGING ON CHEST ASSOCIATE SINGLE S VIEW FRONTAL AMB A0422 BILLY CERVANTES OXYGEN&O2 9 AMBULANCE AMBULANCE SUPPLIES SERVICE SERVICE LIFE SUSTAININ G SITUATION OBSERVATI 44593 Claudia MITCHELL ON CARE 9 LUIS ALBERTO Melvin DISCHARGE PSC MANAGEMEN T INITIAL 57431 Claudia MITCHELL OBSERVATI 9 LUIS [place]ERT[facility] Melvin ON PSC CARE/DAY 50 MINUTES GROUND A0425 [facility] MILEAGE 9 AMBULANCE AMBULANCE PER SERVICE SERVICE STATUTE MILE ECG 79101 KENYATTA BELLE ROUTINE 9 [facility] W/LEAST PROF SERV 12 LDS I&R ONLY AMB A0422 BILLY CERVANTES OXYGEN&O2 9 AMBULANCE AMBULANCE SUPPLIES SERVICE SERVICE LIFE SUSTAININ G SITUATION RADIOLOGI 39185 Olegario MOLINA 9 MEDICAL CAROL EXAMINATI IMAGING ON CHEST ASSOCIATE SINGLE S VIEW FRONTAL AMB A0427 [facility] SERVICE 9 AMBULANCE AMBULANCE ALS SERVICE SERVICE EMERGENCY TRANSPORT LEVEL 1 AMB A0427 [facility] 9 AMBULANCE AMBULANCE ALS SERVICE SERVICE EMERGENCY TRANSPORT LEVEL 1 COMPREHEN 41246 [facility] SIVE 9 [facility] METABOLIC INC INC PANEL BLOOD 97461 [facility] GASES ANY 9 [facility] INC INC COMBINATI ON PH PCO2 PO2 CO2 HCO3 RADIOLOGI 53857 Olegario REYES EXAM 9 [facility] P CHEST 2 IMAGING VIEWS ASSOCIATE FRONTAL&L S ATERAL BLOOD 98330 [facility] COUNT 9 [facility] COMPLETE INC INC AUTO&AUTO DIFRNTL WBC GROUND A0425 [facility] MILEAGE 9 AMBULANCE AMBULANCE PER SERVICE SERVICE STATUTE MILE AMB A0422 [facility] OXYGEN&O2 9 AMBULANCE AMBULANCE SUPPLIES SERVICE SERVICE LIFE SUSTAININ G SITUATION PRESSURIZ 37384 [facility] ED/NONPRE 8 [facility] SSURIZED INC INC INHALATIO N TREATMENT ECG 96834 [facility] YOU ROUTINE 8 [facility] ECG INC INC W/LEAST 12 LDS TRCG ONLY W/O I&R ECG 97982 KEN[facility]TA ADAMS, ROUTINE 8 [facility] W/LEAST PROF SERV 12 LDS I&R ONLY RHYTHM 25428 [facility] YOU ECG 1-3 8 [facility] LEADS INC INC TRACING ONLY W/O I&R IV NFUS 55950 [facility] THER 8 [facility] PROPH/DX INC INC EA HR BLOOD 42197 [facility] YOU COUNT 8 [facility] COMPLETE INC INC AUTO&[place] [address] [facility] YOU TROPONIN 8 [facility] QUANTITAT INC INC CARLOS PRESSURIZ 23948 [facility] YOU ED/NONPRE 8 [facility] SSURIZED INC INC INHALATIO N TREATMENT CREATINE 45442 [facility] YOU KINASE 8 [facility] TOTAL INC INC NATRIURET 73880 [facility] YOU IC 8 [facility] [place] [address] [facility] YOU THER 8 [facility] PROPH/DX INC INC 1ST >1 HR CREATINE 99381 [facility] YOU KINASE MB 8 [facility] FRACTION INC INC ONLY RADIOLOGI 26598 [facility] YOU C 8 [facility] EXAMINATI INC INC ON CHEST SINGLE VIEW FRONTAL BASIC 16355 [facility] YOU METABOLIC 8 [facility] PANEL INC INC CALCIUM TOTAL BLS A0382 LINDA MCKEON ROUTINE 8 CO CO DISPOSABL AMBULANCE AMBULANCE E SERVICE SERVICE SUPPLIES AMBULANCE A0429 LINDA LINDA SERVICE 8 CO CO BLS AMBULANCE AMBULANCE EMERGENCY SERVICE SERVICE TRANSPORT GROUND A0425 LINDA MCKEON MILEAGE 8 CO CO PER AMBULANCE AMBULANCE STATUTE SERVICE SERVICE [facility] [address] [facility] 8 Jamee SANTOYO JR, J V DAY MANAGEMEN T 30 MIN/< SBSQ 24309 [facility] 8 JR, J V JR, J V CARE/DAY 15 MINUTES SBSQ 68942 [facility] 8 JR, J V JR, J V CARE/DAY 15 MINUTES SBSQ [address] E CARE/DAY EMD 25 MINUTES SBSQ [address] E CARE/DAY EMD 25 MINUTES SBSQ [address] E CARE/DAY EMD 25 MINUTES AMB A0427 [facility] SERVICE 8 AMBULANCE AMBULANCE ALS SERVICE SERVICE EMERGENCY TRANSPORT LEVEL 1 GROUND A0425 [facility] MILEAGE 8 AMBULANCE AMBULANCE PER SERVICE SERVICE STATUTE MILE INITIAL [address] E CARE/DAY EMD 50 MINUTES RADIOLOGI 47972 Olegario REYES EXAM 8 [facility] P CHEST 2 IMAGING VIEWS ASSOCIATE FRONTAL&L S ATERAL AMB A0422 [facility] OXYGEN&O2 8 AMBULANCE AMBULANCE SUPPLIES SERVICE SERVICE LIFE SUSTAININ G SITUATION AMB A0422 LINDA LINDA OXYGEN&O2 8 CO CO SUPPLIES AMBULANCE AMBULANCE LIFE SERVICE SERVICE SUSTAININ G SITUATION THER [address] [facility] PROPH/DX [address] [place], [place] [address]X EA [facility] SEQL IV PUSH SBST/DRUG RADIOLOGI 71585 RADIOLOGY Olegario [place] 8 ALMA Mancuso EXAMINATI ASSOCIATE ON CHEST [place] [address] [facility] TROPONIN [address] [place] [address] QUANTITAT [facility] CARLOS BLOOD [address] [facility] COUNT [address] [place] [address] COMPLETE [facility] AUTO&AUTO DIFRNTL WBC ECG [address] [facility] ROUTINE [address] [place] [address] ECG [facility] W/LEAST 12 LDS TRCG ONLY W/O I&R FIBRIN 47433 [facility] ST [facility] DGRADJ [address] [place] [address] PRODUCTS [facility] D-DIMER ULTRASENS ITIVE THER [address] [facility] PROPH/DX [address] [place], [place] [address]X IV EAST EAST PUSH 1ST SBST/DRUG AMBULANCE A0429 LINDA LINDA SERVICE 8 CO CO BLS AMBULANCE AMBULANCE EMERGENCY SERVICE SERVICE TRANSPORT GROUND A0425 LINDA LINDA MILEAGE 8 CO CO PER AMBULANCE AMBULANCE STATUTE SERVICE SERVICE MILE BASIC [address] TOTAL [facility] [address] PATIENT KLAUDIA, DISCHARGE 8 FIRST CASSANDRA G DAY PHYS MANAGEMEN T 30 MIN/< SBSQ 63075 PATIENT [facility] 8 [facility] [place] CARE/DAY PHYS 15 MINUTES INITIAL 99807 PATIENT [facility] 8 [facility] [place] CARE/DAY PHYS 50 MINUTES ECHO 82724 CARDIOLOG GARCIA, TRANSTHOR 8 Y SHELBI D AC R-T 2D ASSOCIATE W/WO S M-MODE REC COMP DOPPLER 28307 CARDIOLOG GARCIA, ECHOCARD 8 Y SHELBI D PULSE ASSOCIATE WAVE S W/SPECTRA L DISPLAY BLS A0382 LINDA LINDA ROUTINE 8 CO CO DISPOSABL AMBULANCE AMBULANCE E SERVICE SERVICE SUPPLIES RADIOLOGI 94289 RADIOLOGY NEILS, C EXAM 8 NOEMY W CHEST 2 ASSOCIATE VIEWS S PSC FRONTAL&L ATERAL ECG 35833 DEJON ROJAS, ROUTINE 8 C FAUSTINO ECG CARDIOLOG W/LEAST [...] PER AMBULANCE AMBULANCE STATUTE SERVICE SERVICE MILE BLOOD 04310 [facility] COUNT [address] [place] [address] AUTOMATED ECG 17528 DEJON WHITING ROUTINE 8 C , TATE J ECG CARDIOLOG W/LEAST ISTS INC 12 LDS I&R ONLY THER 99872 [facility] PROPH/DX [address] [place] [address] NJX IV [facility] PUSH 1ST SBST/DRUG ECG 53823 [facility] ROUTINE [address] [place] [address] ECG [facility] W/LEAST 12 LDS TRCG ONLY W/O I&R RADIOLOGI 32857 [facility] C EXAM [address] [place] [address] CHEST 2 EAST EAST VIEWS FRONTAL&[place] [address] [facility] TROPONIN [address] [place] [address] QUANTITAT [facility] CARLOS BASIC 24424 [facility] METABOLIC [address] [place] [address] PANEL EAST EAST CALCIUM TOTAL BASIC 30488 PATIENT KALFAS, METABOLIC 8 [facility] [place] C PANEL PHYS CALCIUM TOTAL LIPID 41045 PATIENT KALFAS, PANEL 8 [facility] [place] C PHYS AMBULANCE A0429 LINDA LINDA SERVICE 8 CO CO BLS AMBULANCE AMBULANCE EMERGENCY SERVICE SERVICE TRANSPORT GROUND A0425 LINDA LINDA MILEAGE 8 CO CO PER AMBULANCE AMBULANCE STATUTE SERVICE SERVICE MILE PRESSURIZ 98006 [facility] YOU ED/NONPRE 8 [facility] SSURIZED INC INC INHALATIO N TREATMENT BLOOD 60598 [facility] YOU COUNT 8 [facility] COMPLETE INC INC AUTO&[place] [address] [facility] YOU TROPONIN 8 [facility] QUANTITAT INC INC CARLOS ECG 06284 [facility] YOU ROUTINE 8 [facility] ECG INC INC W/LEAST 12 LDS TRCG ONLY W/O I&R ECG 38159 [facility] TRIPLETT 8 [facility] W/LEAST PROF SERV 12 LDS I&R ONLY BLS A0382 LINDA MCKEON ROUTINE 8 CO CO DISPOSABL AMBULANCE AMBULANCE E SERVICE SERVICE SUPPLIES CREATINE 62909 [facility] YOU KINASE MB 8 [facility] FRACTION INC INC ONLY RADIOLOGI 01647 Olegario REYES 8 MEDICAL GEORGE Phillips EXAMINATI IMAGING ON CHEST ASSOCIATE SINGLE S VIEW FRONTAL CREATINE 83054 [facility] YOU KINASE 8 [facility] TOTAL INC INC BASIC 19940 [facility] YOU METABOLIC 8 [facility] PANEL INC INC CALCIUM [facility] 02325 [facility] DISCHARGE 8 JR, J V JR, J V DAY MANAGEMEN T 30 MIN/< SBSQ 18662 [facility] 8 JR, J V JR, J V CARE/DAY 25 MINUTES INITIAL 48583 [facility] 8 JR, J V JR, J V CARE/DAY 50 MINUTES INITIAL 24306 [facility] OBSERVATI 8 JR, J V JR, J V ON CARE/DAY 50 MINUTES ECG 02394 K[facility]TA BELLE ROUTINE 8 [facility] W/LEAST PROF SERV 12 LDS I&R ONLY RADIOLOGI 59567 Olegario REYES EXAM 8 [facility] P CHEST 2 IMAGING VIEWS ASSOCIATE FRONTAL&L S ATERAL GROUND A0425 LINDA LINDA MILEAGE 8 CO CO PER AMBULANCE AMBULANCE STATUTE SERVICE SERVICE MILE AMBULANCE A0429 LINDA LINDA SERVICE 8 CO CO BLS AMBULANCE AMBULANCE EMERGENCY SERVICE SERVICE TRANSPORT BLS A0382 LINDA LINDA ROUTINE 8 CO CO DISPOSABL AMBULANCE AMBULANCE E SERVICE SERVICE [facility] 40789 EMILY DIAZ, DISCHARGE 8 [facility] E DAY EMD MANAGEMEN T 30 MIN/< RADIOLOGI 06085 Olegario REYES EXAM 8 [facility] P CHEST 2 IMAGING VIEWS ASSOCIATE FRONTAL&L S ATERAL SBSQ [address] E CARE/DAY EMD 25 MINUTES SBSQ [address] E CARE/DAY EMD 25 MINUTES ECG 65895 KENY[place]TA DIAZ, ROUTINE 8 [facility] W/LEAST PROF SERV 12 LDS I&R ONLY SBSQ [address] E CARE/DAY EMD 25 MINUTES SBSQ 46167 EMILY [facility] 8 [facility] E CARE/DAY EMD 25 MINUTES ECG 66245 KEN[facility]TA DIAZ, ROUTINE 8 [facility] W/LEAST PROF SERV 12 LDS I&R ONLY AMBULANCE A0429 LINDA LINDA SERVICE 8 CO CO BLS AMBULANCE AMBULANCE EMERGENCY SERVICE SERVICE TRANSPORT GROUND A0425 LINDA LINDA MILEAGE 8 CO CO PER AMBULANCE AMBULANCE STATUTE SERVICE SERVICE MILE INITIAL [address] CARE/DAY EMD 50 MINUTES RADIOLOGI 06542 Olegario MOLINA 8 MEDICAL CAROL EXAMINATI IMAGING ON CHEST ASSOCIATE SINGLE S VIEW FRONTAL BLS A0382 LINDA LINDA ROUTINE 8 CO CO DISPOSABL AMBULANCE AMBULANCE E SERVICE SERVICE SUPPLIES Encounters Encounter Start End Date Code Location Performer Type Date EMERGENCY 59261 [facility] PHYSICIAN U VISIT S, [facility] HIGH SEVERITY& THREAT FUN EMERGENCY 37792 [facility] 7 7 [facility] DEPARTMEN INC T VISIT HIGH/URGE NT SEVERITY HOSPITAL [facility] - 7 7 [facility] OUTPATIEN [facility] - 7 7 [facility] INPATIENT INC EMERGENCY 31877 [facility] PHYSICIAN VISIT S, [facility] HIGH SEVERITY& THREAT FUNCJ EMERGENCY 07039 [facility] DEPT 6 6 [facility] VISIT INC HIGH SEVERITY& THREAT FUN [facility]OSPITAL [facility] - 6 6 [facility] OUTPATIEN [facility] EMERGENCY 82968 [facility] 6 6 [facility] DEPARTMEN INC T VISIT HIGH/URGE NT SEVERITY HOSPITAL [facility] - 6 6 [facility] OUTPATIEN [facility] EMERGENCY 04936 [facility] DEPT 6 6 [facility] VISIT INC HIGH SEVERITY& THREAT FUN [facility]OSPITAL [facility] - [address] [facility] T OFFICE [address]1053 [facility] 6 6 NATHANIEL N T VISIT MED CTR 15 MINUTES OFFICE 79755 JAYJAY NIV OUTPATIEN 6 6 NATHANIEL T VISIT [address] - 6 6 NATHANIEL OUTPATIEN [facility] OFFICE 88401 JAYJAY NIV OUTPATIEN 6 6 NATHANIEL T VISIT 25 PHYSICIAN MINUTES S OFFICE 73529 [facility] OUT[facility] 6 6 NATHANIEL T VISIT 25 PHYSICIAN MINUTES S OFFICE 65203 [facility] OUTPATIEN 6 6 NATHANIEL YEAR LAT T VISIT 15 PHYSICIAN MINUTES S OFFICE 90525 [facility] 5 5 NATHANIEL ALDAIR T VISIT 15 PHYSICIAN MINUTES [facility] ST - 5 5 [facility] 5 [facility] - 4 4 [facility] - 4 4 [facility] - [address] 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 OFFICE 74617 [facility] 3 3 N JORDYN N JORDYN T VISIT 15 [facility] CHILDRENS - OTHER 3 3 [facility] MEDICAL C OFFICE 41068 [facility] 3 3 NATHANIEL T VISIT 5 FT MINUTES [facility] OFFICE 76565 [facility] OUTPATIEN 3 3 T VISIT [address] - 3 3 NATHANIEL OUTPATIEN FT T BOBBY OFFICE 66935 [facility] MCGUIRE OUTPATIEN 3 3 JAM JAM T VISIT [address] - 3 3 NATHANIEL OUTPATIEN MEDICAL [facility] CENTER OFFICE 03373 [facility] OUT[facility] 3 3 YEAR LAT YEAR LAT T VISIT 25 MINUTES HOSPITAL CHILDRENS - OTHER 3 3 [facility] OFFICE 21896 LEANDRA MOBLEY OUTPATIEN 3 3 N JORDYN N JORDYN T VISIT [address] - 3 3 NATHANIEL OUTPATIEN FT T [facility]OBBY OFFICE 79053 ST OUTPATIEN 3 3 NATHANIEL T VISIT 5 FT MIN[facility]ES [facility] 3 NATHANIEL OUTPATIEN FT T BOBBY OFFICE 74825 LEANDRA MOBLEY OUTPATIEN 3 3 N JORDYN N JORDYN T VISIT 15 MINUTES OFFICE 83739 [facility] OUTPATIEN 3 3 OWSKI M JOSE MANUELI M T VISIT 15 MINUTES OFFICE 81058 LEANDRA MOBLEY OUTPATIEN 3 3 N JORDYN N JORDYN T VISIT 25 MINUTES OFFICE 44456 LEANDRA MOBLEY OUTPATIEN 3 3 N JORDYN N JORDYN T VISIT [address] - 3 3 NATHANIEL OUTPATIEN FT T BOBBY OFFICE 16460 [facility] OUTPATIEN 3 3 YEAR LAT YEAR LAT T NEW 30 MINUTES OFFICE 63188 LEANDRA MOBLEY OUTPATIEN 3 3 N JORDYN N JORDYN T VISIT 25 MINUTES OFFICE 98767 LEANDRA LEANDRA OUTPATIEN 3 3 N JORDYN N JORDYN T VISIT 25 MINUTES OFFICE 80859 LEANDRA MOBLEY OUTPATIEN 3 3 N JORDYN N [facility] T VISIT [address]ES [address] [facility] 3 3 NATHANIEL SENTHIL ION NEW/ESTAB PHYSICIAN PATIENT S [address] - 3 3 NATHANIEL OUTPATIEN FT T BOBBY OFFICE 00574 ST OUTPATIEN 3 3 NATHANIEL T VISIT 5 FT MINUTES [facility] OFFICE 60699 [facility] 2001 OUTPATIEN 3 3 T NEW 45 MINUTES OFFICE 49715 LEANDRA MOBLEY OUTPATIEN 3 3 N JORDYN N [facility] T NEW 60 MINUTES HOSPITAL [facility] - [address] [facility] T OFFICE 17841 CAR[facility] CONCEPCION OUTPATIEN 3 3 JR. JONNY FRANCOIS DEN T VISIT 15 MINUTES OFFICE 99026 BARBRA RIDDLE 3 3 JR CHRYSTAL JARRELL T VISIT 15 MINUTES OFFICE 96133 [facility] OUTPATIEN 3 3 JR. JONNY FRANCOIS DEN T NEW 45 MINUTES HOSPITAL [place] - 3 3 [facility] - 3 3 [facility] - 3 3 [facility] INPATIENT INC OFFICE 61032 BARBRA RIDDLE 2 2 JR CHRYSTAL JARRELL T VISIT 15 MINUTES EMERGENCY 48174 NILSA CHAVEZ DEPT 2 2 EMERGENCY VISIT SERVICES HIGH SEVERITY& THREAT [facility] - 2 2 [facility] OUTPATIEN INC T OFFICE 01207 BRODIE NIDA WHLEYDI NIDA CONSULTAT 2 2 ION NEW/ESTAB PATIENT 60 MIN OFFICE 50322 [facility] BESSON OUTPATIEN 2 2 MAURO MAURO T VISIT 25 MINUTES HOSPITAL [place] - 2 2 [facility] OUTPATIEN INC T OFFICE 25646 [facility] BESSON OUTPATIEN 2 2 MAURO MAURO T VISIT 25 MINUTES HOSPITAL [place] - 2 2 [facility] OUTPATIEN INC T OFFICE 77284 [facility]ON OUTPATIEN 2 2 MAURO MAURO T VISIT 15 MINUTES OFFICE 00496 [facility] OUTPATIEN 2 2 MAURO MAURO T VISIT 25 MINUTES HOSPITAL [place] - 2 2 [facility] T OFFICE 21052 BARBRA BELLE OUTPATIEN 2 2 JR CHRYSTAL JR CHRYSTAL T VISIT 15 MINUTES HOSPITAL [facility] - 2 2 [facility] OUTPATIEN [facility] HOSPITAL [place] - 2 2 [facility] INPATIENT INC EMERGENCY 04673 HEBER BUCK DEPT 1 1 [facility] DIONNA VISIT HIGH SEVERITY& THREAT [facility] [place] - 1 1 [facility] INPATIENT INC EMERGENCY 39504 [place] 1 1 [facility] T VISIT LOW/MODER SEVERITY [facility] [place] - 1 1 [facility] T EMERGENCY 44169 NILSA SILVERIO DEPT 1 1 EMERGENCY III CHRYSTAL VISIT SERVICES HIGH SEVERITY& THREAT [facility] ST - 1 1 PSYCHIATRIC 45154 EMERGENCY JEAN-CLAUDE DEPT 1 1 CARE CESAR VISIT PHYS HIGH NORTHERN SEVERITY& THREAT [facility] ST - 1 1 DUNDAS OUTPATIEN FT T [facility]OBBY EMERGENCY 86261 ST DEPT 1 1 NATHANIEL VISIT FT HIGH BOBBY SEVERITY& THREAT FUNJ OFFICE 09409 ST LACE[facility] OUTPATIEN 1 1 NATHANIEL NIDA T VISIT 25 PHYSICIAN MINUTES S EMERGENCY 81311 EMERGENCY JUAN ANTONIO DEPT 1 1 CARE MARCIN VISIT PHYS HIGH NORTHERN SEVERITY& THREAT FUN OFFICE 58518 [facility] OUTPATI[facility] 0 0 NATHANIEL ALDEN T VISIT 25 PHYSICIAN MINUTES S OFFICE 94986 [facility] OUTPATIEN 0 0 NATHANIEL [place]DEN T VISIT 15 PHYSICIAN MINUTES S OFFICE 44071 MOJGAN HERRMANNPATIEN 0 0 NATHANIEL [place] T VISIT 25 PHYSICIAN MINUTES S OFFICE 46373 [facility] OUTPATIEN 0 0 [facility] MINUTES OFFICE 11444 PATIENT VENKATESH LACEY 9 9 [facility] T VISIT PHYS 25 MINUTES [facility] [place] [address] HOSPITAL INPATIENT [facility] EMERGENCY 18035 EMERGENCY MELO, DEPT 9 9 CARE AGUILAR U VISIT PHYS HIGH [place] SE[place]& [place] [facility] OFF[facility] 11259 PATIENT VENKATESH LACEY 9 9 [facility] T VISIT PHYS 25 MINUTES EMERGENCY 70027 EMERGENCY SEJAL, DEPT 9 9 CARE ERNST VISIT PHYS HIGH [place] SE[place]& [place] [facility] EMERGENCY 17940 EMERGENCY JUAN ANTONIO, DEPT 9 9 CARE MIMI D VISIT PHYS HIGH [place] SEVER[place]& [place] THREAT [facility] - 9 9 [facility] OUTPATIEN [facility] [place] - [address] [facility] EMERGENCY 25649 NILSA BUCK, DEPT 9 9 EMERGENCY CASSANDRA S VISIT SERVICES HIGH SEVERITY& ASSOCIATE THREAT [facility] EMERGENCY 59306 NILSA BUCK, DEPT 9 9 EMERGENCY CASSANDRA S VISIT SERVICES HIGH SEVERITY& ASSOCIATE THREAT S [facility] [place] - 9 9 [facility] INPATIENT INC OFFICE 65036 GHADA SPEARSILLO OUTPATIEN 9 9 Jamee SANTOYO JR, J V T VISIT 15 MINUTES OFFICE 96384 [facility] 9 9 Jamee SANTOYO JR, J V T VISIT 15 MINUTES HOSPITAL [place] - 9 9 [facility] T EMERGENCY 28277 CAMILO MERCADO, DEPT 9 9 NATIONAL KRYSTAL VISIT CORPORATI O HIGH ON SEVERITY& THREAT [facility] EMERGENCY 20921 [place] 9 9 [facility] DEPARTMEN INC T VISIT MODERATE SEVERITY HOSPITAL [place] - 8 8 [facility] EMERGENCY 90344 [place] 8 8 [facility] T VISIT HIGH/URGE NT SEVERITY HOSPITAL [place] - 8 8 [facility] INPATIENT [facility] EMERGENCY [address] [place] [address] 8 [facility] VISIT HIGH/URGE NT SEVERITY HOSPITAL [place] [address] 8 [facility] EMERGENCY 26626 EMERGENCY [place] DEPT 8 8 [facility]ARE EDWARD L VISIT PHYS HIGH [place] SE[place]& [place] [facility] EMERGENCY 93959 EMERGENCY TYRELL DEPT 8 8 CARE CASSANDRA VISIT PHYS HIGH [place] SE[place]& [place] [facility] EMERGENCY 04475 EMERGENCY MORALES, DEPT 8 8 CARE RADAMES L VISIT PHYS HIGH [place] SE[place]& [place] THREAT [facility] [place] [address] 8 [facility] 02996 [facility] VISIT EAST HIGH SEVERITY& THREAT FUN OFFICE 09913 PATIENT KLAUDIA MOJGANMANINDER 8 8 FIRST CASSANDRA Mojica MG 45 PHYS MINUTES EMERGENCY [address] [place] [address] [facility] T VISIT MODERATE SEVERITY HOSPITAL [place] - 8 8 [facility] 96456 [place] ZARATE, 8 8 [facility] T VISIT PROF KEN LOW/MODER SEVERITY HOSPITAL [place] - 8 8 [facility] [address] [place] [address] [facility] T VISIT LIMITED/M [facility] [place] - 8 8 [facility] INPATIENT [facility] [place] [facility] 8 8 [facility] INPATIENT [facility]
--- OUTSIDE RECORDS SUMMARY | 2017-03-12 11:57 | External Medical Summary Rpt ---
Author Author , RYAN DAVIS Address Unknown Phone [email or web address] Providers Care Car Bracer Name Role Phone [facility] Unavailable Unavailable PR[facility]ICE, [facility] ALBA WILLIS Unavailable Unavailable BESSON, BESSON Unavailable Unavailable BESSON MAURO, BESSON Unavailable Unavailable MAURO BESSON MAURO, BESSON Unavailable Unavailable MAURO BESSON, DEBORAH A, Unavailable Unavailable BESSON, DEBORAH A BHABHRA RUC, BHABHRA Unavailable Unavailable RUC MEDRANO, EMDRANO Unavailable Unavailable BOVARD ALDAIR, BOVARD Unavailable Unavailable ALDAIR [facility] Unavailable Unavailable SERVICE, [facility] Unavailable Unavailable SERVICE, [facility], Unavailable Unavailable [facility], Unavailable Unavailable [facility] BUDHANI [facility], BUDHANI Unavailable Unavailable IRF LYNNE, LYNNE Unavailable Unavailable TESSA BERNICE, TESSA Unavailable Unavailable BERNICE SMITH, SMITH Unavailable Unavailable [facility] Jamee URRUTIA JR, V, Unavailable Unavailable Jamee URRUTIA JR, V [facility] Unavailable Unavailable MEDICAL C, [facility], Unavailable Unavailable [facility] CARMEL FRANCIS Unavailable Unavailable [facility] Unavailable Unavailable [facility], [facility] Un[facility] Unavailable [facility], [facility] RUSS, RUSS Unavailable Unavailable RUSS RHEA, Unavailable Unavailable RUSS RHEA RUSS RHEA, Unavailable Unavailable RUSS RHEA RUSS, CAROL, Unavailable Unavailable RUSS, CAROL [id number], Unavailable Unavailable [id number], Unavailable Unavailable [id number] GREGORIA OBRIEN, Unavailable Unavailable GREGORIA QUEEN, GARCIA [...] S [facility] TORIBIO, [facility] Unavailable Unavailable [facility] Unavailable Unavailable INC, [facility] Unavailable Unavailable HOSPITAL P, [facility] P AGUILAR ALEJO U, Unavailable Unavailable AGUILAR ALEJO U DONAVON DOMINGUEZ, Unavailable Unavailable DONAVON DOMINGUEZ HURST, HURST Unavailable Unavailable HURST BERNICE, HURST BERNICE Unavailable Unavailable HURST BERNICE, HURST BERNICE Unavailable Unavailable JR. JONNY CONCEPCION, Unavailable Unavailable JR. GISELA CONCEPCION JR. DEN, Unavailable Unavailable JR. JONNY CONCEPCION VADIM, VADIM Unavailable Unavailable KALFAS, SALINA C, Unavailable Unavailable KALFAS, SALINA C FUNMI CHR, FNUMI Unavailable Unavailable [facility] Un[facility] Unavailable [facility], [facility] KERMAN JORDYN, KERMAN Unavailable [...] MARCELINA E, Unavailable Unavailable EMILY, MARCELINA E [facility] Un[facility] INTERNAL MED, [facility] INTERNAL MED [facility] Unavailable Unavailable 9, [facility] 9 JEAN PIERRE, [...] P, Unavailable Unavailable GEORGE BHANDARI P OLIVIA DAIVLA, OLIVIA LOLA Unavailable Unavailable RANJIT MAURO, RANJIT [...] SERVICE LILY SANTOYO SANA, Unavailable Unavailable [facility] Unavailable Unavailable OF NOT, [facility] Unavailable Unavailable [facility] REDDENBOROWSKI M, Unavailable Unavailable REDDENBOROWSKI M REDVIRY M, Unavailable Unavailable REDVIRY M NATHANIEL STONE Unavailable Unavailable ACHASE ELIZABETH A DAVONTE ARAUZ Unavailable Unavailable JAMES LOLA, Unavailable Unavailable JAMES LOLA [id number], Unavailable Unavailable [id number] Unavailable Unavailable [id number] # [id number], [facility] [id number] # 0393 ELIZABETH ZARATE, Unavailable Unavailable ELIZABETH [...] Unavailable ERNST DIEHL, Unavailable Unavailable ERNST [facility] Unavailable Unavailable BOBBY, [facility], Unavailable Unavailable [facility] Unavailable Unavailable OPERATIONS RESEARCH DIRECTOR , [facility] OPERATIONS RESEARCH DIRECTOR [facility] Unavailable Unavailable [place], [facility] Unavailable Unavailable PHYSICIANS, [facility] Unavailable Unavailable [facility], [facility] CNADY AUGUSTE, Unavailable Unavailable CANDY AUGUSTE, Unavailable Unavailable FAVIOLA CERVANTES, Unavailable Unavailable FAVIOLA HINTON TOLTZIS Unavailable Unavailable TORIBIO RENETTA SENTHIL, TRORADHAON Unavailable Unavailable SENTHIL PAT WATERMAN Unavailable Unavailable KERRI VELASQUEZ, Unavailable Unavailable KERRI VELASQUEZ [id number], Unavailable Unavailable [id number] # Unavailable Unavailable [id number], [facility] # [id number] [facility] # Unavailable Unavailable 4284, [facility] [...] INC PULMONARY DISEASE UNS E876 HYPOKALEMIA 10-01-2016 [facility] I10 ESSENTIAL 10-01-2016 [facility] HYPERTENSIO INC N J42 UNSPECIFIED 10-01-2016 [facility]RON[facility], BRONCHITIS PLLC J441 CHRONIC 10-01-2016 [facility] OBSTRUCTIVE PHYSICIANS, PULMONARY PLLC DZ W/EXACERBAT ION J9600 ACUTE 10-01-2016 [facility] P HYPOXIA/HYP ERCAPNIA R0602 SHORTNESS 10-01-2016 [facility] Z720 TOBACCO USE 10-01-2016 [facility] P [id number] PERSONAL 10-01-2016 [facility] HISTORY OF PHYSICIANS, NICOTINE PLLC DEPENDENCE Z9981 DEPENDENCE 10-01-2016 [facility] P L OXYGEN E119 TYPE 2 09-15-2016 [facility] DIABETES [place]LEY MELLITUS INTERNAL WITHOUT MED COMPLICATIO NS J210 ACUTE 09-15-2016 [facility] BRONCHIOLIT VALLEY IS DUE TO INTERNAL RSV MED J440 COPD WITH 09-15-2016 [facility] ACUTE LOWER [place] INTERNAL RESPIRATORY MED INFECTION M6281 MUSCLE 09-15-2016 [facility] WEAKNESS VAL[facility] GENERALIZED INTERNAL MED R269 UNSPECIFIED 09-15-2016 [facility] [place] ABNORMALITI INTERNAL ES OF GAIT MED AND MOBILITY P67475 OTHER 09-11-2016 [facility] R05 COUGH 09-09-2016 [facility] E782 MIXED 08-07-2016 ST HYPERLIPIDE [facility]EL [facility] PH[facility] T36611 PAIN IN 08-07-2016 ST RIGHT HIP [facility]ATH[facility]EL PHYSICIANS T32006 PAIN IN 08-07-2016 ST RIGHT KNEE NATHANIEL PHYSICIANS M4716 OTHER 08-07-2016 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 Z1159 ENCOUNTER 08-07-2016 FOR NATHANIEL SCREENING PHYSICIANS FOR OTHER VIRAL DISEASES Z1329 ENCOUNTER 08-07-2016 ST SCREEN OT NATHANIEL SUSPECTED PHYSICIANS ENDOCRN DISORDER M1991 PRIMARY 06-26-2016 [facility] P UNSPECIFIED SITE E54793 PERSONAL HX 06-26-2016 [facility] NEOPLASM INC BRONCHUS & LUNG J209 ACUTE 06-22-2016 [facility]IS [facility] UNSPECIFIED INC R918 OTHER 05-19-2016 [facility] NONSPECIFIC MEDICAL ABNORMAL IMAGING ASS FINDING OF LUNG FIELD C3412 MALIGNANT 04-10-2016 ST NEOPLASM NATHANIEL UPPER LOBE MED CTR LT BRONCHUS/JOANN NG G8929 OTHER 11-01-2015 ST CHRONIC NATHANIEL PAIN PHYSICIANS M160 BILATERAL 11-01-2015 ST PRIMARY NATHANIEL OSTEOARTHRI PHYSICIANS TIS OF HIP M1710 UNILATERAL 11-01-2015 [facility] TIS UNS KNEE W24212 PAIN IN 11-01-2015 LEFT HIP NATHANIEL PHYSICIANS [id number] SPONDYLOSIS 11-01-2015 RAD[facility] W/O ASSOCIATES MYELOPATH/R OF [...] CHRONIC 10-07-2015 ST PAIN NATHANIEL SYNDROME PHYSICIANS T02992 SPONDYLOSIS 10-07-2015 ST W/O NATHANIEL MYELOPATH/R PHYSICIANS [...] NATHANIEL UPPER LOBE PHYSICIANS BRONCHUS OR LUNG 61286 OBSTRUCTIVE 03-11-2015 CHRONIC NATHANIEL BRONCHITIS PHYSICIANS WITH EXACERBATIO N 1629 MALIGNANT 02-25-2015 NEOPLASM NATHANIEL BRONCHUS&JOANN FT [facility]OB[facility] NG UNSPEC SITE 18876 SOLITARY 02-25-2015 [facility] PULMONARY [facility]ODULE [facility] 03612 PAIN IN 08-03-2014 ST JOINT, NATHANIEL SHOULDER FT [facility] REGION V1582 PERS HX 07-03-2014 TOBACCO USE [place] PRESENTING [facility] 7866 SWELLING, 04-20-2014 RADIOLOGY MASS, OR ASSOCIATES LUMP IN [facility] CHEST 92267 CHEST PAIN 11-16-2013 BOB GAR UNSPECIFIED 1970 SECONDARY 11-11-2013 MALIGNANT NATHANIEL NEOPLASM OF FT [facility] LUNG 2859 UNSPECIFIED 11-11-2013 ST ANEMIA NATHANIEL FT [facility] 61107 OTHER 11-11-2013 DISEASES OF NATHANIEL LUNG NOT FT [facility]OB[facility] ELSEWHERE CLASSIFIED 5718 OTHER 11-11-2013 CHRONIC NATHANIEL NONALCOHOLI FT [facility]OB[facility] C LIVER DISEASE 42697 SHORTNESS 11-11-2013 NEILS LEO OF BREATH V462 DEPENDENCE 11-11-2013 ST ON MACHINE NATHANIEL FOR FT [facility] SUPPLEMENTA L OXYGEN V4589 OTHER 10-10-2013 ST POSTSURGICA NATHANIEL L STATUS FT [facility] OTHER 4019 UNSPECIFIED 07-04-2013 ESSENTIAL NATHANIEL HYPERTENSIO MED CTR OPERATIONS RESEARCH DIRECTOR N ST V7791 SCREENING 07-04-2013 ST FOR LIPOID NATH[facility]EL DISORDERS MED CTR OPERATIONS RESEARCH DIRECTOR ST 12827 05-05-2013 [facility] 9 7213 LUMBOSACRAL 03-29-2013 ST NATHANIEL SPONDYLOSIS FT [facility]OB[facility] WITHOUT MYELOPATHY 7242 LUMBAGO 03-29-2013 MALIKA QUEEN V153 PERS HX 03-29-2013 ST IRRADIATION NATHANIEL PRESENTING FT [facility] V8741 PERSONAL 03-29-2013 ST HISTORY OF NATHANIEL ANTINEOPLAS [place] [address] OTHER 03-23-2013 MAYNOR HUDSON CHRONIC PAIN 34246 GENERALIZED 03-23-2013 MAYNOR HUDSON OSTEOARTHRO SIS UNSPECIFIED SITE V0481 NEED 03-23-2013 MAYNOR HUDSON PROPHYLACTI C VACCINATION &INOCULATIO N FLU 26283 OBSTRUCTIVE 02-27-2013 [facility] CHRONIC AR LAT BRONCHITIS WITHOUT EXACERBAT 40940 ACUTE 02-27-2013 [facility] BRONCHOSPAS AR LAT M V4579 OTHER 01-24-2013 ST ACQUIRED NATHANIEL ABSENCE OF FT [facility] ORGAN 4299 UNSPECIFIED 01-18-2013 ST HEART NATHANIEL DISEASE FT [facility] 7820 DISTURBANCE 01-18-2013 ST OF SKIN NATHANIEL SENSATION FT BOB[facility] V5811 ENCOUNTER 12-07-2012 WINKELMANN FOR JORDYN ANTINEOPLAS TIC CHEMOTHERAP Y V580 RADIOTHERAP 11-30-2012 ST Y NATHANIEL FT BOBBY 94235 HYPOXEMIA 11-28-2012 [facility] AR LAT 1991 OTHER 10-27-2012 SRINIVASAN BANNER MD [facility] MALIGNANT NEOPLASM OF UNSPECIFIED SITE 4011 ESSENTIAL 2012 JR. CARLENE HYPERTENSIO DEN N, BENIGN 5121 IATROGENIC 09-08-2012 BARBRA SANTOYO [place]ST[place] X 98791 OTHER 09-08-2012 RUSS PNEUMOTHORA RHEA X 2391 NEOPLASM 09-07-2012 COMMUNITY UNSPECIFIED ANESTH OF NATURE THE [facility]UE RESPIRATORY SYSTEM 4928 OTHER 09-07-2012 [facility] EMPHYSEMA RHEA 7856 ENLARGEMENT 09-07-2012 R[facility] OF LYMPH RHAE NODES 486 PNEUMONIA, 09-01-2012 BARBRA SANTOYO ORGANISM CHRYSTAL UNSPECIFIED 46094 UNSPECIFIED 08-31-2012 [facility] RESPIRATORY ABNORMALITY 75641 MORBID 07-21-2012 BARBRA SANTOYO OBESITY CHRYSTAL 54250 UNSPECIFIED 07-21-2012 BARBRA JARRELL ARTHROPATHY MULTIPLE SITES 7234 BRACHIAL 06-15-2012 BRYAN WADE NEURITIS OR RADICULITIS NOS 2662 OTHER 05-31-2012 [facility] B-COMPLEX [facility] DEFICIENCIE INC S 2689 UNSPECIFIED 05-31-2012 [facility] VITAMIN D [facility] DEFICIENCY INC 2768 HYPOPOTASSE 05-31-2012 [facility] 2724 OTHER AND 03-29-2012 BRYAN MAURO UNSPECIFIED HYPERLIPIDE MARIA 7850 UNSPECIFIED 09-21-2011 [facility] TACHYCARDIA SERVICE 4822 PNEUMONIA 08-11-2011 [facility] DUE TO VALLEY HEMOPHILUS INTERNAL INFLUENZAE MED 51212 ACUTE 08-11-2011 [facility] RESPIRATORY [facility]LEY FAILURE INTERNAL MED 04413 WHEEZING 08-08-2011 [facility] AM[facility]ULANCE SERVICE 4829 UNSPECIFIED 06-24-2011 [facility] BACTERIAL [facility] PNEUMONIA INC 5183 PULMONARY 06-24-2011 RUSS EOSINOPHILI RHEA A 68914 OTHER 03-27-2011 [facility] DYSPNEA AND AMBULANCE SERVICE RESPIRATORY ABNORMALITI ES 2875 UNSPECIFIED 01-20-2011 NATHANIEL THROMBOCYTO PHYSICIANS PENIA 08642 CHRONIC 01-20-2011 OBSTRUCTIVE [place] [facility] WITH EXACERBATIO N 50806 ACUTE AND 01-20-2011 CHRONIC [place] RESPIRATORY PHYSICIANS FAILURE V1581 PERS HX 01-20-2011 NONCOMPLIAN NATHANIEL CE W/MED TX PHYSICIANS PRS [facility] 4240 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 NATHANIEL DISORDERS PHYSICIANS 7804 DIZZINESS 01-18-2011 FIRE DEPT AND OF [facility] 20580 DIARRHEA 01-18-2011 ST NATHANIEL FT BOBBY 57811 OTHER 10-30-2010 EMERGENCY SPECIFIED CARE PHYS CARDIAC [facility]THER[facility] DYSRHYTHMIA S 490 BRONCHITIS 10-30-2010 NOT NATHANIEL SPECIFIED FT [facility] ACUTE OR CHRONIC 5939 UNSPECIFIED 10-30-2010 DISORDER NATHANIEL OF KIDNEY FT BOBBY AND URETER 18990 OSTEOARTHRO 10-30-2010 ST S UNSPEC NATHANIEL WHETHER FT [facility] GEN/LOC UNSPEC SITE 7245 UNSPECIFIED 10-30-2010 ST BACKACHE NATHANIEL FT BOB[facility] 7291 UNSPECIFIED 10-30-2010 ST MYALGIA NATHANIEL AND FT BOBBY MYOSITIS 7808 GENERALIZED 10-30-2010 NATHANIEL HYPERHIDROS FT BOBBY IS 4660 ACUTE 08-19-2010 ST BRONCHITIS [facility] 515 POSTINFLAMM 08-15-2010 [facility] PULMONARY PSC FIBROSIS 13336 OTHER 08-15-2010 FIRE DEPT MALAISE AND OF [facility] 74069 OTHER 06-10-2010 ABNORMAL [place] [facility] 7862 COUGH 06-08-2010 FIRE DEPT OF NAFISA [place] 51838 NUCLEAR 10-02-2009 [facility] 3669 UNSPECIFIED 10-02-2009 INDEPENDENT CATARACT ANESTHESIOL OGIST 30980 MIGRAINE 09-19-2009 ST UNSP W/O NATHANIEL INTRACT W/O PHYSICIANS STATUS MIGRAINOSUS 22685 POSTERIOR 09-18-2009 [facility] SENILE CATARACT V7283 OTHER 09-02-2009 SPECIFIED [place] PRE-OPERATI PHYSICIANS VE EXAMINATION 21544 CORTICAL 07-15-2009 [facility] 2809 UNSPECIFIED 07-05-2009 [facility] DEFICIENCY EAST ANEMIA 5110 PLEURISY 07-05-2009 [facility] MENTION [place]AST EFFUS/[place] [address] OTHER CHEST 05-08-2009 [facility]1 4139 OTHER AND 04-08-2009 PATIENT UNSPECIFIED FIRST PHYS ANGINA PECTORIS 06046 DIAB W/O 03-21-2009 [facility] COMP TYPE MEM [...] JR, J V INFECTION SITE NOT SPECIFIED 87501 IMPAIRED 06-11-2008 EMILY FASTING MARCELINA EMD GLUCOSE 7806 FEVER & OTH 06-10-2008 [facility] AM[facility]ULANCE PHYSIOLOGIC SERVICE DISTURBANCE [place] 823[address] FEVER 06-10-2008 [place] [facility] 7864 ABNORMAL 05-13-2008 [facility] AMB[facility]ANCE SERVICE 81682 PAINFUL 05-13-2008 [facility] V5869 LONG-TERM 05-13-2008 [facility] (CURRENT) [facility] USE OF EAST OTHER MEDICATIONS V7799 OTH&UNSPEC 02-28-2008 PATIENT ENDOCRN FIRST PHYS NUTRIT METAB&IMMUN ITY D/O 40709 INSOMNIA 02-06-2008 PATIENT UNSPECIFIED FIRST PHYS 7955 NONSPECIFIC 02-06-2008 PATIENT REACTION FIRST PHYS TO TEST FOR TUBERCULOSI S V061 NEED PROPH 02-06-2008 PATIENT VAC W/COMB FIRST PHYS DIPHTH-TETA NUS-PERTUSS VAC 7821 RASH AND 12-02-2007 [facility] SKIN PROF SERV ERUPTION 00978 OBST 09-03-2007 [facility] CHRONIC [facility] BRONCHITIS INC W/ACUTE BRONCHITIS 514 PULMONARY 09-01-2007 [facility] HYPOSTASIS SERVICE 52456 PNEUMONIA 08-24-2007 EMILY DUE TO MARCELINA EMD [...] 11 MA BR E 9 CY IA TX # N OP 05 50 43 7 [...] MG 8 /3 # 03 ML 93 TX 00 09 09 22 13 RI 90 [...] SP 00 08 09 0 30 30 PR 15 Ac IR 59 -2 -0 .0 LG 58 KE ti IV 70 9- 1- 00 RE 81 OH ve A 07 20 20 EN 5 E 18 54 11 11 S JR 1 #4 MC 28 WI G 4 LL CP # IA -H 42 M AN 84 F DI [place] LE R 00 08 09 0 30 5 PR 15 Ac 59 -2 -0 .0 LG 58 KE ti 10 9- 1- 00 RE 81 OH ve 34 20 20 EN 6 E 90 11 11 S JR 5 #4 28 WI 4 LL # IA 42 M 84 F CE 00 08 09 0 7. 3 PR 15 Ac FD 78 -2 -0 00 LG 58 KE ti IN 12 9- 1- 0 RE 81 OH ve IR 17 20 20 EN 7 E 66 11 11 S JR 30 0 #4 0 28 WI MG 4 LL # IA CA 42 M PS 84 F UL E 00 08 09 0 10 10 PR 15 Ac 14 -2 -0 .0 LG 58 KE ti 31 9- 1- 00 RE 82 OH ve 47 20 20 EN 6 E 70 11 11 S JR 5 #4 28 WI 4 LL # IA 42 M 84 F 59 07 07 2 8. 25 PR 15 AR Ac 31 -0 -0 50 LG 48 [place] ti 00 8- 8- 0 RE 43 CK ve 57 20 20 EN 7 92 11 11 S BR 0 #4 IA 28 N 4 # 42 84 SE 59 07 07 6 30 30 PR 15 AR Ac RT 76 -0 -0 .0 LG [...] 3- 4- 00 RE 94 K ve TX 51 20 20 EN 0 AH IL [...] 11 S BR E 1 #4 IA TX 28 N OP 4 # 50 42 [...] 0 42 MG 84 TA BL ET TX 50 04 04 0 24 8 WA [...] 11 S BR E 1 #4 IA TX 28 N OP 4 # 50 42 [...] 11 S BR E 1 #4 IA TX 28 N OP 4 # 50 42 84 MC G SP RA Y TX 50 01 01 0 30 10 WA 15 AR Ac OM 38 -2 -2 0. LG [...] 01 01 0 4. 4 WA 15 [facility] EL 08 -1 -1 00 LG 12 AB ti OX 51 8- 8- 0 RE 56 HR ve 73 20 20 EN 8 A 40 30 11 11 S RU 0 1 #4 CH MG 28 I 4 TA # BL 42 ET 84 AV 00 12 12 0 5. 5 PR 31 KU EL 08 -1 -1 00 LG 07 RA ti OX 51 2- 2- 0 RE 13 PA ve 73 20 20 EN 0 TI 40 30 10 10 S 0 1 #7 RA MG 34 JE 6 EV TA # BL 73 ET 46 ME 59 12 12 0 21 6 PR 31 KU TH 74 -1 -1 .0 LG 07 RA ti YL 60 2- 2- 00 RE 13 PA ve TX 00 20 20 EN 1 TI ED 10 10 10 S NI 3 #7 RA SO 34 JE LO 6 EV NE # 4 73 46 MG DO SE PK 00 09 11 1 45 11 PR 14 AR Ac 59 -1 -2 .0 LG 87 [place] ti 10 3- 2- 00 RE 17 CK ve 34 20 20 EN 7 90 10 10 S BR 5 #4 IA 28 N 4 # 42 84 59 06 11 4 8. 15 PR 14 AR Ac 31 -1 -2 50 LG 87 [place] ti 00 8- 2- 0 RE 17 CK ve 57 20 20 EN 8 92 10 10 S BR 0 #4 IA 28 N 4 # 42 84 00 11 11 0 20 5 PR 14 WO Ac 59 -1 -1 .0 LG 99 NG ti 10 0- 1- 00 RE 10 ve 34 20 20 EN 7 CH 90 10 10 S RI 5 #4 S 28 4 # 42 84 00 11 11 0 26 13 PR 14 WO Ac 14 -1 -1 .0 LG 99 NG ti 31 0- 1- 00 RE 10 ve 47 20 20 EN 8 CH 31 10 10 S RI 0 #4 S 28 4 # 42 84 AV 00 11 11 0 2. 2 PR 14 WO Ac EL 08 -1 -1 00 LG 99 NG ti OX 51 0- 1- 0 RE 10 ve 73 20 20 EN 9 CH 40 30 10 10 S RI 0 1 #4 S MG 28 4 TA # BL 42 ET 84 FL 00 11 11 0 16 30 PR 14 WO Ac UT 05 -1 -1 .0 LG 99 NG ti IC 43 0- 1- 00 RE 11 ve 27 20 20 EN 0 CH ON 09 10 10 S RI E 9 #4 S TX 28 OP 4 # 50 42 84 MC G SP RA Y 00 11 11 0 54 30 PR 14 WO Ac 18 -1 -1 0. LG 99 NG ti 57 0- 1- 00 RE 11 ve 32 20 20 0 EN 1 CH 23 10 10 S RI 0 #4 S 28 4 # 42 84 00 09 09 1 45 11 PR 14 SC Ac 59 -1 -1 .0 LG 87 [place] ti 10 3- 8- 00 RE 17 CK ve 34 20 20 EN 7 90 10 10 S BR 5 #4 IA 28 N 4 # 42 84 TH 50 06 09 5 30 30 PR 14 SC Ac EO 11 -1 -1 .0 LG 74 [place] ti PH 10 8- 2- 00 RE 25 CK ve YL 48 20 20 EN 6 LI 20 10 10 S BR NE 2 #4 IA 28 N ER 4 # 20 42 0 84 MG TA BL ET 59 06 09 4 8. 15 PR 14 SC Ac 31 -1 -1 50 LG 87 H[place] ti 00 8- 2- 0 RE 17 CK ve 57 20 20 EN 8 92 10 10 S BR 0 #4 IA 28 N 4 # 42 84 59 06 08 5 8. 15 PR 14 SC Ac 31 -1 -2 50 LG 86 [place] ti 00 8- 4- 0 RE 62 CK ve 57 20 20 EN 92 10 10 S BR 0 #1 IA 14 N 95 # 11 49 5 AD 00 02 08 2 60 30 PR 14 SC Ac VA 17 -0 -2 [...] AD 00 02 07 5 60 30 PR 14 SC Ac VA 17 -0 -2 [...] 84 00 07 07 2 45 11 PR 14 SC Ac 59 -0 -0 .0 LG 25 [place] ti 10 8- 8- 00 RE 20 CK ve 34 20 20 EN 90 10 10 S BR 5 #1 IA 14 N 95 # 11 49 5 BU 00 07 07 2 20 3 PR 14 SC Ac TA 60 -0 -0 .0 LG 25 [place] ti LB 32 8- 8- 00 RE 24 CK ve -A 54 20 20 EN CE 42 10 10 S BR TA 8 #1 IA OH 14 N N- 95 CA # FF 11 50 49 -3 5 25 -4 0 TH 50 06 07 5 30 30 PR 14 SC Ac EO 11 -1 -0 .0 LG 74 [place] ti PH 10 8- 2- 00 RE 25 CK ve YL 48 20 20 EN 6 LI 20 10 10 S BR NE 2 #4 IA 28 N ER 4 # 20 42 0 84 MG TA BL ET 53 06 06 0 12 12 PR 14 SC Ac 01 -1 -1 0. LG 71 [place] ti 40 8- 9- 00 RE 98 CK ve 54 20 20 0 EN 0 86 10 10 S BR 7 #4 IA 28 N 4 # 42 84 AL 00 06 06 5 30 25 PR 14 SC Ac BU 48 -1 -1 0. LG 71 [place] ti TE 79 8- 9- 00 RE 98 CK ve RO 50 20 20 0 EN 2 L 12 10 10 S BR CONRAD 5 #4 IA L 28 N 2. 4 5 # MG 42 /3 [address] 00 06 06 0 20 10 PR 14 SC Ac 14 -1 -1 .0 LG 71 [place] ti 31 8- 9- 00 RE 98 CK ve 47 20 20 EN 3 31 10 10 S BR 0 #4 IA 28 N 4 # 42 84 AD 00 06 06 5 60 30 PR 14 SC Ac VA 17 -1 -1 .0 LG 71 [place] ti IR 30 8- 9- 00 RE 98 CK ve 69 20 20 EN 7 25 60 10 10 S BR 0- 0 #4 IA 50 28 N 4 DI # SK 42 US 84 59 02 06 5 8. 30 PR 14 SC Ac 31 -0 -1 50 LG 45 [place] ti 00 1- 6- 0 RE 35 CK ve 57 20 20 EN 4 92 10 10 S BR 0 #4 IA 28 N 4 # 42 84 TH 50 03 05 3 60 30 PR 14 SC Ac EO 11 -1 -2 .0 LG 54 [place] ti PH 10 7- 7- 00 RE 29 CK ve YL 48 20 20 EN 4 LI 20 10 10 S BR NE 2 #4 IA 28 N ER 4 # 20 42 0 84 MG TA BL ET BU 00 04 05 1 20 4 PR 14 SC Ac TA 60 -2 -2 .0 LG 67 [place] ti LB 32 7- 7- 00 RE 78 CK ve -A 54 20 20 EN 8 CE 42 10 10 S BR TA 8 #4 IA OH 28 N N- 4 CA # FF 42 84 50 -3 25 -4 0 00 12 05 2 45 30 PR 14 SC Ac 59 -1 -2 .0 LG 54 [place] ti 10 5- 2- 00 RE 37 CK ve 34 20 20 EN 6 90 09 10 S BR 5 #4 IA 28 N 4 # 42 84 59 02 05 5 8. 30 PR 14 SC Ac 31 -0 -1 50 LG 45 [place] ti 00 1- 8- 0 RE 35 CK ve 57 20 20 EN 4 92 10 10 S BR 0 #4 IA 28 N 4 # 42 84 TH 50 03 04 3 60 30 PR 14 SC Ac EO 11 -1 -2 .0 LG 54 [place] ti PH 10 7- 7- 00 RE 29 CK ve YL 48 20 20 EN 4 LI 20 10 10 S BR NE 2 #4 IA 28 N ER 4 # 20 42 0 84 MG TA BL ET BU 00 04 04 0 20 3 PR 14 SC Ac TA 60 -1 -2 [...] 80 10 10 S ED 5 #[address] 4 J # 42 84 00 03 03 1 3. 14 PR 14 Ac GA 06 -0 -0 00 LG 51 LL ti MO 54 1- 1- 0 RE 03 AN ve X 01 20 20 EN 8 D 0. 30 10 10 S ED 5% 3 #[address] EY 4 J E # DR 42 OP 84 S 00 02 02 00 3. 14 PR 14 Ac GA 06 -1 -2 00 LG 48 LL ti MO 54 5- 6- 0 RE 28 AN ve X 01 20 20 EN 1 D 0. 30 10 10 ED 5% 3 #[address] EY [address] LUNA S ME 68 02 02 00 30 30 PR 14 SC Ac LO 18 -1 -2 .0 LG 49 [place] ti XI 00 0- 6- 00 RE 16 CK ve CA 50 20 20 EN 0 M 20 10 10 BR 15 3 #4 IA 28 N MG 4 TA BL ET 00 12 02 02 45 30 PR 14 SC Ac 59 -1 -2 .0 LG 34 HAYWOOD ti 10 5- 6- 00 RE 49 CK ve 34 20 20 EN 9 90 09 10 BR 5 #4 IA 28 N 4 59 02 02 00 8. 30 PR 14 SC Ac 31 -0 -1 50 LG 45 HAYWOOD ti 00 1- 1- 0 RE 35 CK ve 57 20 20 EN 4 92 10 10 BR 0 #4 IA 28 N 4 SE 59 01 02 01 15 30 PR 14 SC Ac RT 76 -1 -1 .0 LG 40 HAYWOOD ti RA 24 1- 1- 00 RE 01 CK ve LI 91 20 20 EN 5 NE 00 10 10 BR 5 #4 IA HC 28 N L 4 10 0 MG TA BL ET AD 00 02 02 00 60 30 PR 14 SC Ac VA 17 -0 -1 .0 LG 45 HAYWOOD ti IR 30 1- 1- 00 RE 35 CK ve 69 20 20 EN 2 25 60 10 10 BR 0- 0 #4 IA 50 28 N 4 DI SK US 00 01 02 00 3. 7 PR 14 Ac GA 06 -2 -1 00 LG 44 LL ti MO 54 7- 1- 0 RE 00 AN ve X 01 20 20 EN 6 D 0. 30 10 10 ED 5% 3 #[address] EY [address] [...] SE 59 01 01 00 15 30 PR 14 SC Ac RT 76 -1 -2 .0 LG 40 HAYWOOD ti RA 24 1- 8- 00 RE 01 CK ve LI 91 20 20 EN 5 NE 00 10 10 BR 5 #4 IA HC 28 N L 4 10 0 MG TA BL ET 59 10 01 03 8. 16 PR 14 SC Ac 31 -2 -2 50 LG 23 HAYWOOD ti 00 0- 8- 0 RE 42 CK ve 57 20 20 EN 5 92 09 10 BR 0 #4 IA 28 N 4 AD 00 10 01 01 60 30 PR 14 KA Ac VA 17 -1 -2 .0 LG 21 LF ti IR 30 3- 8- 00 RE 44 ve 69 20 20 EN 3 25 60 09 10 OH 0- 0 #4 NA 50 28 C 4 DI SK US 59 10 12 02 8. 16 PR 14 SC Ac 31 -2 -3 50 LG 23 HAYWOOD ti 00 0- 1- 0 RE 42 CK ve 57 20 20 EN 5 92 09 09 BR 0 #4 IA 28 N 4 00 12 12 00 45 30 PR 14 SC Ac 59 -1 -3 .0 LG 34 HAYWOOD ti 10 5- 1- 00 RE 49 CK ve 34 20 20 EN 9 90 09 09 BR 5 #4 IA 28 N 4 NA 68 10 12 01 60 30 PR 14 KA Ac TX 46 -1 -1 .0 LG 21 LF ti OX 20 3- 7- 00 RE 44 ve EN 19 20 20 EN 4 00 09 09 OH 50 5 #4 NA 0 28 C MG 4 TA BL ET XO 63 10 12 01 72 30 PR 14 KA Ac PE 40 -1 -1 .0 LG 21 LF ti NE 20 3- 7- 00 RE 44 ve X 51 20 20 EN 1 1. 32 09 09 OH 25 4 #4 NA 28 C MG 4 /3 ML SO JOANN TI ON SE 59 10 12 01 15 30 PR 14 KA Ac RT 76 -1 -1 [...] 4 20 0 MG TA BL ET TX 00 12 12 00 30 12 WA [...] 5 R L 16 09 09 OH CONRAD 0 #4 CH L 28 AE [...] L 0. G 02 % SO LN TX 00 10 12 01 12 3 WA [...] BR 0 #4 IA 28 N 4 TX 00 10 11 00 12 3 WA [...] XO 63 10 10 00 72 30 PR 14 KA Ac PE 40 -1 -2 .0 LG 21 LF ti NE 20 3- 2- 00 RE 44 ve X 51 20 20 EN 1 1. 32 09 09 OH 25 4 #4 NA 28 C MG 4 /3 ML SO JOANN TI ON AD 00 10 10 00 60 30 PR 14 KA Ac VA 17 -1 -2 .0 LG 21 LF ti IR 30 3- 2- 00 RE 44 ve 69 20 20 EN 3 25 60 09 09 OH 0- 0 #4 NA 50 28 C 4 DI SK US 00 10 10 00 30 7 PR 14 KA Ac 59 -1 -2 .0 LG 21 LF ti 10 3- 2- 00 RE 44 ve 34 20 20 EN 5 90 09 09 OH 5 #4 NA 28 C 4 AV 00 10 10 00 3. 3 PR 14 KA Ac EL 08 -1 -2 00 LG 21 LF ti OX 51 3- 2- 0 RE 43 ve 73 20 20 EN 4 40 30 09 09 OH 0 1 #4 NA MG 28 C 4 TA BL ET TX 00 10 10 00 40 12 PR 14 KA Ac ED 59 -1 -2 [...] 00 60 30 WA 14 KA Ac TX 46 -1 -2 .0 LG 21 LF [...] OH 5 #4 NA 28 C 4 TX 00 09 09 00 12 3 WA 14 KA Ac OM 60 -0 -2 0. LG 14 LF ti ET 31 9- 4- 00 RE 27 ve HAYWOOD 58 20 20 0 EN 0 ZI 85 09 09 OH NE 8 #4 NA 28 C VC 4 -C OD EI NE SY RU P TX 00 09 09 00 20 15 WA 14 KA Ac ED 59 -0 -2 .0 LG 14 LF ti NI 15 9- 4- 00 RE 26 ve SO 44 20 20 EN 7 NE 30 09 09 OH 5 #4 NA 20 28 C 4 MG TA BL ET NA 68 09 09 00 60 30 WA 14 KA Ac TX 46 -0 -2 .0 LG 14 LF [...] OH 0 #4 NA 28 C 4 AD 00 09 09 00 60 30 WA 14 KA Ac VA 17 -0 -2 .0 LG 14 LF ti IR 30 9- 4- 00 RE 27 ve 69 20 20 EN 1 25 60 09 09 OH 0- 0 #4 NA 50 28 C 4 DI SK US TX 00 08 08 00 30 30 CL 19 CA Ac AV 09 -2 -[address] ti 37 1- 7- 00 IC 71 IL ve TA 20 20 20 LO TI 29 09 09 PH N 8 AR JR SO MA J DI CY V UM 40 MG TA B TX 00 08 08 00 6. 25 CL [...] 00 30 15 CL 19 CA Ac TX 74 -0 -[address] [...] V DI #3 SK 93 US 8 TX 00 09 07 06 6. 25 RI [...] #3 MG 93 8 TA BL ET TX 00 09 07 05 6. 25 RI 76 SC Ac OV 08 -1 -0 70 TE 48 [place] ti EN 51 9- 2- 0 64 FE ve TI 13 20 20 AI R L 20 08 09 D OH HF 1 PH CH A AR AE 90 M L #3 G MC 93 G 8 IN [place] LE R TX 00 09 06 04 6. 25 RI [...] DI #3 G SK 93 US 8 TX 00 09 05 03 6. 25 RI [...] 34 9- 1- 00 42 S ve TX [address] ED 31 [...] DI #3 G SK 93 US 8 TX 00 09 04 02 6. 25 RI [...] DI #3 G SK 93 US 8 TX 00 09 02 01 6. 25 RI [...] 34 6- 2- 00 76 N ve TX 59 20 20 AI BA ED 31 [...] #3 O 93 TA 8 BL ET TX 00 09 01 00 6. 25 RI [...] L DI 43 G SK 7 US TX 00 09 10 01 6. 25 CV 46 SC Ac OV 08 -1 -2 70 S 94 [place] ti EN 51 9- 3- 0 PH 78 FE ve TI 13 20 20 AR R L 20 08 08 MA OH HF 1 CY CH A AE 90 #5 L 43 G MC 7 G IN [place] LE R TX 00 09 09 00 63 18 CV [...] CH AE #5 L 43 G 7 TX 00 09 09 00 6. 25 CV [...] 1 7- 00 PH 27 EY ve TX 02 20 20 AR ED 20 08 [...] 4- 6- 00 IC 80 Av ve TX 00 20 20 ai ED 10 08 [...] la 1 AR bl MA e CY TX 00 01 03 00 30 13 CV [...] O2 SYS RENT; FLWMTR HUMIDFR&M ASK COLLECTIO 49119 [facility] BLOOD INC INC VENIPUNCT URE BLOOD 41301 [facility] COUNT 7 [facility] COMPLETE INC INC AUTO&AUTO DIFRNTL WBC PRESSURIZ 23261 [facility] YOU ED/NONPRE 7 [facility] SSURIZED INC INC INHALATIO N TREATMENT NONINVASI 79588 [facility] VE 7 [facility] EAR/PULSE INC INC OXIMETRY SINGLE DETER BASIC 31724 [facility] YOU METABOLIC 7 [facility] PANEL INC INC CALCIUM TOTAL BASIC 90279 [facility] YOU METABOLIC 7 [facility] PANEL INC INC CALCIUM TOTAL PRESSURIZ 56323 [facility] YOU ED/NONPRE 7 [facility] SSURIZED INC INC INHALATIO N TREATMENT THER 04316 [facility] YOU PROPH/DX 7 [facility] NJX IV INC INC PUSH SINGLE/1S T SBST/DRUG NONINVASI 26908 [facility] YOU VE 7 [facility] EAR/PULSE INC INC OXIMETRY SINGLE DETER THERAPEUT 78179 [facility] YOU IC 7 [facility] INJECTION INC INC IV PUSH EACH NEW DRUG COLLECTIO 10748 [facility] YOU N VENOUS 7 [facility] BLOOD INC INC V[facility]UNCT [facility] G0378 [facility] OBSERVATI 7 [facility] ON INC INC [facility] G0378 [facility] YOU OBSERVATI 7 [facility] ON INC INC SERVICE PER HOUR PRESSURIZ 94576 [facility] YOU ED/NONPRE 7 [facility] SSURIZED INC INC INHALATIO N TREATMENT NONINVASI 48011 [facility] YOU VE 7 [facility] EAR/PULSE INC INC OXIMETRY SINGLE DETER PRESSURIZ 78545 [facility] YOU ED/NONPRE 7 [facility] SSURIZED INC INC INHALATIO N TREATMENT BLOOD 44057 [facility] YOU COUNT 7 [facility] COMPLETE INC INC AUTO&AUTO DIFRNTL WBC ECG 31350 [facility] YOU ROUTINE 7 [facility] ECG INC INC W/LEAST 12 LDS TRCG ONLY W/O I&[place] [address] [facility] YOU TROPONIN 7 [facility] QUANTITAT INC INC CARLOS ECG 53536 [facility] ADAMS ROUTINE 7 [facility] W/LEAST P 12 LDS I&R ONLY COMPREHEN 57540 [facility] YOU SIVE 7 [facility] METABOLIC INC INC PANEL CREATINE 83859 K[facility] YOU KINASE MB 7 [facility] FRACTION INC INC ONLY RADIOLOGI 97870 [facility] YOU C 7 [facility] EXAMINATI INC INC ON CHEST SINGLE VIEW FRONTAL BLOOD 98678 [facility] YOU GASES ANY 7 [facility] INC INC COMBINATI ON PH PCO2 PO2 CO2 HCO3 CREATINE 61787 [facility] YOU KINASE 7 [facility] TOTAL INC INC PRTBLE E0431 PATIENT PATIENT GASEOUS 7 AIDS INC AIDS INC O2 SYS RENT; FLWMTR HUMIDFR&M ASK O2 CONC 1 E1390 PATIENT PATIENT DEL PORT 7 AIDS INC AIDS INC 85%/>02 [facility] AT [facility] FLW RATE PHYS G0179 [place] [facility] RE-CERT [address] [place] [address]-COVR INTERNAL [facility] RE-CERT [facility] 73085 [place] BESREPLACED BY [facility] DISCHARGE [address] [place] [address] INTERNAL MANAGEMEN MED T 30 MIN/< SBSQ [address]/DAY INTERNAL 25 MED MINUTES SBSQ [address]/DAY INTERNAL 25 MED MINUTES ECG 54229 [facility] DIAZ JR ROUTINE 7 [facility] W/LEAST P 12 LDS I&R ONLY ECG 75885 [facility] ADAMS ROUTINE 7 [facility] W/LEAST P 12 LDS I&R ONLY RADIOLOGI 81989 [facility] EXAM 7 MEDICAL CHEST 2 IMAGING VIEWS ASS FRONTAL&L ATERAL PRTBLE E0431 PATIENT PATIENT GASEOUS 7 AIDS INC AIDS INC O2 SYS RENT; FLWMTR HUMIDFR&M ASK O2 CONC 1 E1390 PATIENT PATIENT DEL PORT 7 AIDS INC AIDS INC 85%/>02 [facility] AT [facility] FLW RATE COLLECTIO [address] ST SMITH N VENOUS 7 [place] BLOOD VENIPUNCT PHYSICIAN URE S PRTBLE E0431 PATIENT PATIENT GASEOUS 6 AIDS INC AIDS INC O2 SYS RENT; FLWMTR HUMIDFR&M ASK O2 CONC 1 E1390 PATIENT PATIENT DEL PORT 6 AIDS INC AIDS INC 85%/>02 [facility] AT [facility] G0378 [facility] YOU OBSERVATI 6 [facility] ON INC INC SERVICE PER HOUR PRESSURIZ 22995 [facility] YOU ED/NONPRE 6 [facility] SSURIZED INC INC INHALATIO N TREATMENT NONINVASI 17168 [facility] YOU VE 6 [facility] EAR/PULSE INC INC OXIMETRY SINGLE DETER PRESSURIZ 50579 [facility] YOU ED/NONPRE 6 [facility] SSURIZED INC INC INHALATIO N TREATMENT NONINVASI 15836 [facility] YOU VE 6 [facility] EAR/PULSE INC INC OXIMETRY SINGLE [facility] G0378 [place] YOU OBSERVATI 6 [facility] ON INC INC [facility] G0378 [place] YOU OBSERVATI 6 [facility] ON INC INC SERVICE PER HOUR COLLECTIO 63088 [place] YOU N VENOUS 6 [facility] BLOOD INC INC VENIPUNCT URE NONINVASI 43240 [facility] YOU VE 6 [facility] EAR/PULSE INC INC OXIMETRY SINGLE DETER PRESSURIZ 07037 [facility] YOU ED/NONPRE 6 [facility] SSURIZED INC INC INHALATIO N TREATMENT BLOOD 39041 [facility] YOU COUNT 6 [facility] COMPLETE INC INC AUTO&AUTO DIFRNTL WBC BASIC 14345 [facility] YOU METABOLIC 6 [facility] PANEL INC INC CALCIUM TOTAL ECG 88825 [facility] YOU ROUTINE 6 [facility] ECG INC INC W/LEAST 12 LDS TRCG ONLY W/O I&R RADIOLOGI 32071 [facility] C EXAM 6 MEDICAL CHEST 2 IMAGING VIEWS ASS FRONTAL&[place] [address] [facility] YOU TROPONIN 6 [facility] QUANTITAT INC INC CARLOS BLOOD 44921 [facility] YOU COUNT 6 [facility] COMPLETE INC INC AUTO&AUTO DIFRNTL WBC ECG 92687 [place] DIAZ JR ROUTINE 6 [facility] W/LEAST P 12 LDS I&[place] [address] [facility] YOU INFUSION 6 [facility] THERAPY/P INC INC ROPHYLAXI S /DX 1ST TO 1 HR THERAPEUT 40159 [facility] YUO IC 6 [facility] INJECTION INC INC IV PUSH EACH NEW DRUG COMPREHEN 12458 [facility] YOU SIVE 6 [facility] METABOLIC INC INC PANEL CREATINE 34481 K[place] YOU KINASE MB 6 [facility] [place] [address] [facility] YOU LACTATE 6 [facility] INC INC HOSPITAL G0378 [facility] YOU OBSERVATI 6 [facility] ON INC INC SERVICE PER HOUR BLOOD 94644 [facility] YOU GASES ANY 6 [facility] INC INC COMBINATI ON PH PCO2 PO2 CO2 HCO3 NATRIURET 61202 [facility] YOU IC 6 [facility] PEPTIDE INC INC CREATINE 44700 [facility] YOU KINASE 6 [facility] [place] [address] [facility] YOU LACTATE 6 [facility] INC INC RADIOLOGI 12679 [facility] 6 MEDICAL EXAMINATI IMAGING ON CHEST ASS SINGLE VIEW FRONTAL COMPREHEN 34847 [facility] YOU SIVE 6 [facility] METABOLIC INC INC PANEL THERAPEUT 08465 [facility] YOU IC 6 [facility] INJECTION INC INC IV PUSH EACH NEW DRUG PRESSURIZ 69295 [facility] YOU ED/NONPRE 6 [facility] SSURIZED INC INC INHALATIO N TREATMENT CULTURE 71801 [facility] YOU BACTERIAL 6 [facility] BLOOD INC INC AEROBIC W/ID ISOLATES THER 89025 [facility] YOU PROPH/DX 6 [facility] NJX IV INC INC PUSH SINGLE/1S T SBST/DRUG BLOOD 60377 [facility] YOU COUNT 6 [facility] COMPLETE INC INC AUTO&AUTO DIFRNTL WBC PRTBLE E0431 PATIENT PATIENT GASEOUS 6 AIDS INC AIDS INC O2 SYS RENT; FLWMTR HUMIDFR&M ASK O2 CONC 1 E1390 PATIENT PATIENT DEL PORT 6 AIDS INC AIDS INC 85%/>02 [facility] AT [facility] FLW RATE GLUC BLD 02307 [facility] YOU GLUC MNTR 6 [facility] DEV INC INC CLEARED FDA SPEC HOME USE COMPREHEN 44803 [facility] YOU SIVE 6 [facility] METABOLIC INC INC PANEL COLLECTIO 86532 K[place] YOU N VENOUS 6 [facility] BLOOD INC INC [facility]CT [facility] G0378 [facility] YOU OBSERVATI 6 [facility] ON INC INC SERVICE PER HOUR BLOOD 30984 [facility] YOU COUNT 6 [facility] COMPLETE INC INC AUTO&AUTO DIFRNTL WBC PRESSURIZ 65334 [facility] YOU ED/NONPRE 6 [facility] SSURIZED INC INC INHALATIO N TREATMENT NONINVASI 86586 [facility] YOU VE 6 [facility] EAR/PULSE INC INC OXIMETRY SINGLE DETER NONINVASI 76827 [facility] YOU VE 6 [facility] EAR/PULSE INC INC OXIMETRY SINGLE DETER PRESSURIZ 13294 [facility] YOU ED/NONPRE 6 [facility] SSURIZED INC INC INHALATIO N TREATMENT [facility]OSPITAL G0378 [facility] YOU OBSERVATI 6 [facility] ON INC INC SERVICE PER HOUR GLUC BLD 97560 [facility] YOU GLUC MNTR 6 [facility] DEV INC INC CLEARED FDA SPEC HOME USE GLUC BLD 75061 [facility] YOU GLUC MNTR 6 [facility] DEV INC INC CLEARED FDA SPEC HOME USE CREATINE 07900 [facility] YOU KINASE 6 [facility] TOTAL INC INC HOSPITAL G0378 K[place] YOU OBSERVATI 6 [facility] ON INC INC SERVICE PER HOUR COMPREHEN 94378 [facility] YOU SIVE 6 [facility] METABOLIC INC INC PANEL CREATINE 99429 K[facility] YOU KINASE MB 6 [facility] FRACTION INC INC ONLY RADIOLOGI 13886 [facility] YOU C 6 [facility] EXAMINATI INC INC [place] [address] [facility] YOU LACTATE 6 [facility] INC INC CULTURE 93167 K[facility] YOU BACTERIAL 6 [facility] BLOOD INC [place]EROB[place] W/[place] [address] [place] YOU INFUSION 6 [facility] THERAPY/P INC INC ROPHYLAXI S /DX 1ST TO 1 HR NONINVASI 91178 [facility] YOU VE 6 [facility] EAR/PULSE INC INC OXIMETRY SINGLE DETER PRESSURIZ 52721 [facility] YOU ED/NONPRE 6 [facility] SSURIZED INC INC INHALATIO N TREATMENT THERAPEUT 23914 [facility] YOU IC 6 [facility] INJECTION INC INC IV PUSH EACH NEW DRUG INITIAL 54981 [facility] OBSERVATI 6 PHYSICIAN EUG ON S GROUP CARE/DAY 50 MINUTES BLOOD 69069 [facility] YOU COUNT 6 [facility] COMPLETE INC INC AUTO&AUTO DIFRNTL WBC ECG 22413 [facility] YOU ROUTINE 6 [facility] ECG INC INC W/LEAST 12 LDS TRCG ONLY W/O I&[place] [address] [facility] YOU TROPONIN 6 [facility] QUANTITAT INC INC CARLOS ECG 27037 K[place]TA DIAZ JR ROUTINE 6 [facility] W/LEAST P 12 LDS I&R ONLY PRTBLE [...] O2 SYS RENT; FLWMTR HUMIDFR&M ASK RADEX 29585 [facility] [place] [facility] 6 LUMBOSACR ASSOCIATE AL 2/3 S OF NOTH VIEWS RADEX 85355 [facility] SPINE 6 [facility] LUMBOSACR FT FT AL BOBBY ROSALES MINIMUM 4 VIEWS RADEX 46688 RADIOLOGY [facility] HIPS 6 BILATERAL ASSOCIATE WITH S [...] SYS RENT; FLWMTR [place] [address] [facility] [address] [place] [address] PATHOLOGY MED CTR GROSS&DIONNA ROSCOPIC EXAM ANES 34786 ANESTHESI BAKER LOLA UPPER GI 6 A GROUP ENDOSCOPY PRACTICE PROXIMAL TO DUODENUM INITIAL [address] CARE/DAY 50 PHYSICIAN MINUTES S SBSQ [address] CARE/DAY 25 PHYSICIAN MINUTES S SBSQ [address] CARE/DAY 25 PHYSICIAN MINUTES S SBSQ [address] CARE/DAY 25 PHYSICIAN MINUTES S SBSQ [address] CARE/DAY 25 PHYSICIAN MINUTES S [facility] [address] CARE/DAY 25 PHYSICIAN MINUTES S SBSQ [address] CARE/DAY 25 PHYSICIAN MINUTES S INITIAL [address] CARE/DAY [address] [place] [address] RADIOLOGY [place] [facility]GIOGRAP 6 [facility] CHEST ASSOCIATE W/CONTRAS S OF [facility] T/NONCONT RAST RADIOLOGI [address] [facility] 6 EXAMINATI ASSOCIATE ON CHEST S OF [facility] SINGLE VIEW FRONTAL PRTBLE E0431 PATIENT PATIENT GASEOUS 6 AIDS INC AIDS INC O2 SYS RENT; [facility] HUMIDFR&M ASK O2 CONC 1 E1390 PATIENT PATIENT DEL PORT 6 AIDS INC AIDS INC 85%/>02 CONC AT [facility] [address] MANAGEMEN PHYSICIAN T 30 S MIN/< SBSQ [address] CARE/DAY 25 PHYSICIAN MINUTES S SBSQ [address] CARE/DAY 25 PHYSICIAN MINUTES S CV STRS [address]62 [facility] TST 6 [place] ER TORIBIO XERS&/OR RX CONT PHYSICIAN ECG W/O S I&R MYOCARDIA 44162 ST GARCIA BERNICE L SPECT 6 [facility] STUDIES PHYSICIAN S CV STRS [address]31 ST STRICKMEY TST 6 NATHANIEL ER TORIBIO XERS&/OR RX CONT PHYSICIAN ECG I&[place] [address] RADIOLOGY [facility] CERVICAL 6 DOT SPINE W/O ASSOCIATE CONTRAST S OF NOTH MATERIAL INITIAL 18950 [facility] 6 [place] CARE/DAY 50 PHYSICIAN MINUTES S SBSQ [address] CARE/DAY 25 PHYSICIAN MINUTES S SBSQ [address] CARE/DAY 25 PHYSICIAN MINUTES S INITIAL [address] CARE/DAY 50 PHYSICIAN MINUTES S PRTBLE [...] 85%/>02 [facility] 20897 [facility]ICIAN PHYSICIAN T 30 S S MIN/< DUP-SCAN 80459 [facility] XTR VEINS 5 [facility] COMPLETE MED CTR BILATERAL STUDY PRTBLE [...] SYS RENT; FLWMTR HUMIDFR&M ASK CT THORAX 73630 [facility] 5 NATHANIEL NATHANIEL W/CONTRAS FT FT T [...] 85%/>02 CONC AT PRSC FLW RATE PLETHYSMO 75735 [facility] GRAPHY 5 NATHANIEL YEAR LAT LUNG VOLUMES PHYSICIAN W/[place] [address] [facility] DIFFUSING 5 NATHANIEL YEAR LAT CAPACITY PHYSICIAN S BRNCDILAT 26314 [facility] RSPSE 5 LAT SPMTRY PRE&POST- PHYSICIAN BRNCDILAT S [facility] 8[address]61 [facility] NIV DISCHARGE MANAGEMEN PHYSICIAN T 30 S MIN/< WALKER E0143 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 FOLDING 5 [facility] WHEELED MEDICAL MEDICAL ADJUSTABL SVCS SVCS E/FIXED HEIGHT SEAT E0156 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 5 STONE STONE T [facility] SVCS CT THORAX 24478 RADIOLOGY [place] 5 KAROLYN W/CONTRAS ASSOCIATE T S OF NOTH MATERIAL RADEX 75014 RADIOLOGY [facility] EMERGENCY DEPARTMENT SHOULDER 5 COMPLETE ASSOCIATE MINIMUM 2 S OF NOTH VIEWS BRNCDILAT 21788 [facility] RSPSE 4 NATHANIEL IRF SPMTRY MED CTR PRE&[place] [address] [facility] DIFFUS[facility] 4 NATHANIEL IRF CAPACITY MED CTR PLETHYSMO 21483 [facility] GRAPHY 4 NATHANIEL IRF LUNG MED CTR VOLUMES W/WO AIRWAY RESIST CT THORAX 00776 RADIOLOGY [facility] BERNICE 4 W/CONTRAS ASSOCIATE T S OF NOTH MATERIAL CT THORAX [address] 4 NATHANIEL NATHANIEL W/CONTRAS FT FT T [facility] 32352 BOB BOB DISCHARGE 4 GAR GAR DAY MANAGEMEN T 30 MIN/< RADIOLOGI 40513 ADRIANA Melvin 4 MAURO EXAMINATI ON CHEST SINGLE VIEW FRONTAL CT THORAX 76458 RANJIT CHURCH 4 MAURO MAURO W/CONTRAS T [...] O2 SYS RENT; FLWMTR HUMIDFR&M ASK COMPREHEN [address] [facility] 3 [facility] MED CTR PANEL OPERATIONS RESEARCH DIRECTOR ST OPER[place] [address] [facility] STIMULATI MED CTR MED CTR NG OPERATIONS RESEARCH DIRECTOR ST OPERATIONS RESEARCH DIRECTOR ST HORMONE TSH LIPID [address] PANEL 3 NATHANIEL NATHANIEL MED CTR MED CTR OPERATIONS RESEARCH DIRECTOR ST OPERATIONS RESEARCH DIRECTOR ST BLOOD [address] [facility] COMPLETE MED CTR MED CTR AUTO&AUTO OPERATIONS RESEARCH DIRECTOR ST OPERATIONS RESEARCH DIRECTOR ST DIFRNTL WBC PRTBLE E0431 PATIENT PATIENT [...] O2 SYS RENT; FLWMTR HUMIDFR&M ASK COMPREHEN [address] METABOLIC MEDICAL MEDICAL PANEL C [facility] B[facility] 89182 [facility] N JORDYN N JORDYN [...] 85%/>02 CONC AT PRS [place] [place] RADEX [address] SPINE 3 NATHANIELANDRÉS CANTUTH LUMBOSACR FT FT AL 2/3 BOBBY BOBBY VIEWS PRTBLE E0431 PATIENT PATIENT GASEOUS 3 AIDS INC AIDS INC O2 SYS RENT; FLWMTR HUMIDFR&M ASK PET 44377 [facility] [address] ATTENUATI ON SKULL BASE MID-THIGH FLUORODEO A[address] XYGLUCOSE 3 [facility] F-18 FDG MEDICAL MEDICAL DX UP TO CENTER CENTER 45 MCI PORTABLE E0443 PATIENT PATIENT O2 3 AIDS INC AIDS INC CONTENTS GASEOUS 1 MO SUPPLY=1 UNIT PRTBLE E0431 PATIENT PATIENT GASEOUS 3 AIDS INC AIDS INC O2 SYS RENT; FLWMTR HUMIDFR&M ASK O2 CONC 1 E1390 PATIENT PATIENT DEL PORT 3 AIDS INC AIDS INC 85%/>02 CONC AT PRSC [place] COMPREHEN [address] METABOLIC MEDICAL MEDICAL PANEL C C BLOOD 44565 [facility] N JORDYN N JORDYN COMPLETE AUTO&AUTO DIFRNTL WBC LOCM Q9967 ST ST 300-399 3 NATHANIEL NATHANIEL MG/ML FT FT IODINE BOBBY BOBBY CONCENTRA TION PER ML CT THORAX 54035 FUNMI FUNMI 3 CHR CHR W/CONTRAS T MATERIAL PRTBLE E0431 PATIENT PATIENT GASEOUS 3 AIDS INC AIDS INC O2 SYS RENT; FLWMTR HUMIDFR&M ASK O2 CONC 1 E1390 PATIENT PATIENT DEL PORT 3 AIDS INC AIDS INC 85%/>02 [facility] RADJ DLVR [address] 3/> 3 NTAHANIEL NATHANIEL AREAS FT FT CUSTOM BOBBY BOBBY BLKING 11-19MEV BLOOD 32173 [facility] COUNT 3 N JORDYN N JORDYN COMPLETE AUTO&AUTO DIFRNTL WBC RADJ DLVR [address] 3/> 3 NATHANIEL NATHANIEL AREAS FT FT CUSTOM BOBBY BOBBY BLKING 11-19MEV PRTBLE E0431 PATIENT PATIENT GASEOUS 3 AIDS INC AIDS INC O2 SYS RENT; FLWMTR HUMIDFR&M ASK O2 CONC 1 E1390 PATIENT PATIENT DEL PORT 3 AIDS INC AIDS INC 85%/>02 CONC AT PRSC FLW RATE RADJ DLVR [address] 3/> 3 NATHANIEL NATHANIEL AREAS FT FT CUSTOM BOBBY BOBBY BLKING 11-19MEV CONTINUIN [address]49 ST G MEDICAL 3 NATHANIEL NATHANIEL PHYSICS FT FT CONSLTJ BOBBY BOBBY TX WK RADJ DLVR [address] 3/> 3 NATHANIEL NATHANIEL AREAS FT FT CUSTOM BOBBY BOBBY BLKING 11-19MEV RADJ DLVR [address] 3/> 3 NATHANIEL NATHANIEL AREAS FT FT CUSTOM BOBBY BOBBY BLKING 11-19MEV THERAPEUT [address] IC [facility] RADIOLOGY FT FT PORT BOBBY BOBBY IMAGES(S) RADIATION 10705 [facility] [place] PRA 3 TREATMENT MANAGEMEN T 5 TREATMENT S RADJ DLVR [address] 3/> 3 NATHANIEL NATHANIEL AREAS FT FT CUSTOM BOBBY BOBBY BLKING 11-19MEV BLOOD 98483 [facility] COUNT 3 JOSE MANUELI M MATIAS Vega COMPLETE AUTO&AUTO DIFRNTL WBC RADJ DLVR [address] 3/> 3 NATHANIEL NATHANIEL AREAS FT FT CUSTOM BOBBY BOBBY BLKING 11-19MEV CONTINUIN [address] G MEDICAL 3 NATHANIEL NATHANIEL PHYSICS FT FT CONSLTJ BOBBY BOBBY [place] WK RADJ DLVR [address] 3/> 3 NATHANIEL NATHANIEL AREAS FT FT CUSTOM BOBBY BOBBY BLKING 11-19MEV RADJ DLVR [address] 3/> 3 NATHANIEL NATHANIEL AREAS FT FT CUSTOM BOBBY BOBBY BLKING 11-19MEV RADJ DLVR [address] 3/> 3 NATHANIEL NATHANIEL AREAS FT FT CUSTOM BOBBY BOBBY BLKING 11-19MEV THERAPEUT [address] IC 3 NATHANIEL NATHANIEL RADIOLOGY FT FT PORT BOBBY BOBBY IMAGES(S) RADIATION 37859 SHO [place] PRA 3 TREATMENT MANAGEMEN T 5 TREATMENT S RADJ DLVR [address] 3/> 3 NATHANIEL NATHANIEL AREAS FT FT CUSTOM BOBBY BOBBY BLKING 11-19MEV RADJ DLVR [address] 3/> 3 NATHANIEL NATHANIEL AREAS FT FT CUSTOM BOBBY BOBBY BLKING 11-[address] [facility] 3 NATHANIEL NATHANIEL PHYSICS FT FT CONSLTJ BOBBY BOBBY TX WK INJECTION J9045 LEANDRA MOBLEY 3 N JORDYN COBB CARBOPLAT IN 50 [place] [address] LEANDRA MOBLEY INFUSION 3 N JORDYN COBB THER PROPH ADDL SEQUENTIA L TO 1 HR COMPREHEN 75609 ELANDRA MOBLEY SIVE 3 N JORDYN COBB METABOLIC PANEL INJECTION J2405 LEANDRA MOBLEY 3 N JORDYN N JORDYN ONDANSETR ON HCL PER 1 MG INJECTION J9265 LEANDRA MOBLEY 3 N JORDYN N JORDYN PACLITAXE L 30 MG INJECTION J1200 LEANDRA MOBLEY 3 N JORDYN N JORDYN DIPHENHYD RAMINE HCL UP TO 50 MG BLOOD 76229 LEANDRA MOBLEY COUNT 3 N JORDYN N JORDYN COMPLETE AUTO&AUTO DIFRNTL WBC INJECTION J1100 LEANDRA MOBLEY 3 N JORDNY N JORDYN DEXAMETHO SONE SODIUM PHOSPHATE 1 MG INJECTION J2780 LEANDRA MOBLEY 3 N JORDYN N JORDYN RANITIDIN E HYDROCHLO RIDE 25 MG [place] 33658 LEANDRA MOBLEY ADMN IV 3 N JORDYN COBB NFS TQ EA SEQL NFS TO 1 HR [place] 44725 LEANDRA MOBLEY ADMN IV 3 N JORDYN N JORDYN NFS TQ UP 1 HR / SBST/DRUG RADJ DLVR [address] 3/> 3 NATHANIEL NATHANIEL AREAS FT FT CUSTOM BOBBY BOBBY BLKING 11-19MEV RADJ DLVR [address] 3/> 3 NATHANIEL NATHANIEL AREAS FT FT CUSTOM BOBBY BOBBY BLKING 11-19MEV RADJ DLVR [address] 3/> 3 NATHANIEL NATHANIEL AREAS FT FT CUSTOM BOBBY BOBBY BLKING 11-19MEV THERAPEUT [address] IC 3 NATHANIEL NATHANIEL RADIOLOGY FT FT PORT BOBBY BOBBY IMAGES(S) RADIATION 05222 SHO SHAH BERKOWITZ PRA 3 TREATMENT MANAGEMEN T 5 TREATMENT S RADJ DLVR [address] 3/> 3 NATHANIEL NATHANIEL AREAS FT FT CUSTOM BOBBY BOBBY BLKING 11-19MEV RADJ DLVR [address] 3/> 3 ANTHANIEL NATHANIEL AREAS FT FT CUSTOM BOBBY BOBBY BLKING 11-19MEV CONTINUIN 64448 [facility] 3 NATHANIEL NATHANIEL PHYSICS FT FT CONSLTJ BOBBY ROSALES TX WK INJECTION J9045 LEANDRA MOBLEY 3 N JORDYN N JORDYN CARBOPLAT IN 50 MG COMPREHEN 20820 LEANDRA MOBLEY SIVE 3 N JORDYN N JORDYN METABOLIC PANEL BLOOD 55463 LEANDRA BARNESMAN COUNT 3 N JORDYN N JORDYN COMPLETE AUTO&AUTO DIFRNTL WBC BRNCDILAT 05305 BROWN-PUR BROWN-PUR RSPSE 3 YEAR LAT YEAR LAT SPMTRY PRE&[place] [address] BROWN-PUR BROWN-PUR DIFFUSING 3 YEAR LAT YEAR LAT CAPACITY PLETHYSMO 16855 BROWN-PUR BROWN-PUR GRAPHY 3 YEAR LAT YEAR LAT LUNG VOLUMES W/WO AIRWAY RESIST RADIATION 72042 SHO SHAH BERKOWITZ PRA 3 TREATMENT MANAGEMEN T 5 TREATMENT S INJECTION J9265 LEANDRA MOBLEY 3 N JORDYN N JORDYN PACLITAXE L 30 MG INJECTION J2405 LEANDRA MOBLEY 3 N JORDYN N JORDYN ONDANSETR ON HCL PER 1 MG INJECTION J1200 LEANDRA OMBLEY 3 N JORDYN N JORDYN DIPHENHYD RAMINE HCL UP TO 50 MG INJECTION J9045 LEANDRA MOBLEY 3 N JORDYN N JORDYN CARBOPLAT IN 50 MG COMPREHEN 77118 LEANDRA MOBLEY SIVE 3 N [place] [address] LEANDRA MOBLEY INFUSION 3 N JORDYN N JORDYN THER PROPH ADDL SEQUENTIA L TO 1 HR INJECTION J1100 LEANDRA MOBLEY 3 N JORDYN N JORDYN DEXAMETHO SONE SODIUM PHOSPHATE 1 MG INJECTION J2780 LEANDRA KERRI 3 N JORDYN VELASQUEZ RANITIDIN E HYDROCHLO RIDE 25 MG BLOOD 64896 LEANDRA RODRIGUES BEL COUNT 3 N JORDYN COMPLETE AUTO&AUTO DIFRNTL WBC [place] 54549 LEANDRA MOBLEY ADMN IV 3 N JORDYN N JORDYN NFS TQ EA SEQL NFS TO 1 HR [place] 31609 [place] IV 3 N JORDYN N JORDYN NFS TQ UP 1 HR / SBST/DRUG RADIATION 63688 SHO SHAH 3 TREATMENT MANAGEMEN T 5 TREATMENT S PRTBLE E0431 KAMALJIT MARI GASEOUS 3 HOME HOME O2 SYS MEDICAL MEDICAL RENT; EQUIPME EQUIPME FLWMTR HUMIDFR&M ASK O2 CONC 1 E1390 KAMALJIT MARI [place] 3 HOME HOME 85%/>02 MEDICAL MEDICAL CONC AT EQUIPME EQUIPME PRSC FLW RATE [place] 48052 LEANDRA MOBLEY ADMN IV 3 N JORDYN N JORDYN NFS TQ UP 1 HR SBST/DRUG INJECTION J1200 LEANDRA MOBLEY 3 N JORDYN N JORDYN DIPHENHYD RAMINE HCL UP TO 50 MG INJECTION J9265 LEANDRA MOBLEY 3 N JORDYN N JORDYN PACLITAXE L 30 MG INJECTION J2405 LEANDRA MOBLEY 3 N JORDYN N JORDYN ONDANSETR ON HCL PER 1 MG COMPREHEN 65484 LEANDRA MOBLEY SIVE 3 N JORDYN N JORDYN METABOLIC PANEL INJECTION J9045 LEANDRA MOBLEY 3 N JORDYN N JORDYN CARBOPLAT IN 50 [place] [address] LEANDRA MOBLEY INFUSION 3 N JORDYN N JORDYN THER PROPH ADDL SEQUENTIA L TO 1 HR CHEMOTX 48943 LEANDRA MOBLEY ADMN IV 3 N JORDYN N JORDYN NFS TQ EA SEQL NFS TO 1 HR BLOOD 72127 LEANDRA OLSONKEMIE COUNT 3 N JORDYN JR CHRYSTAL COMPLETE AUTO&AUTO DIFRNTL WBC INJECTION J2780 LEANDRA MOBLEY 3 N JORDYN N JORDYN RANITIDIN E HYDROCHLO RIDE 25 MG INJECTION J1100 LEANDRA MOBLEY 3 N JORDYN N JORDYN DEXAMETHO SONE SODIUM PHOSPHATE 1 MG RADIATION 70954 SHO BERKOWITZ PRA 3 TREATMENT MANAGEMEN T 5 TREATMENT S INJECTION J9265 LEANDRA MOBLEY 3 N JORDYN N JORDYN PACLITAXE L 30 MG INJECTION J9045 LEANDRA MOBLEY 3 N JORDYN N JORDYN CARBOPLAT IN 50 MG INJECTION J1200 LEANDRA MOBLEY 3 N JORDYN N JORDYN DIPHENHYD RAMINE HCL UP [place] 50 [place] [address] LEANDRA MOBLEY INFUSION 3 N JORDYN N JORDYN THER PROPH ADDL SEQUENTIA L TO 1 HR COMPREHEN 51394 LEANDRA MOBLEY SIVE 3 N JORDYN N JORDYN METABOLIC PANEL INJECTION J1100 LEANDRA MOBLEY 3 N JORDYN N JORDYN DEXAMETHO SONE SODIUM PHOSPHATE 1 MG INJECTION J2780 LEANDRA MOBLEY 3 N [facility] N JORDYN RANITIDIN E HYDROCHLO RIDE 25 MG BLOOD 91441 LEANDRA MOBLEY COUNT 3 N JORDYN N [facility] COMPLETE AUTO&AUTO DIFRNTL WBC CHEMOTX 43824 LEANDRA MOBLEY ADMN IV 3 N JORDYN N [facility] NFS TQ EA SEQL NFS TO 1 HR CHEMOTX 04186 LEANDRA MOBLEY ADMN IV 3 N [facility] N [facility] NFS TQ UP 1 HR SBST/DRUG 3-D 77392 [facility] RADIOTHER 3 BRA BRA APY PLAN DOSE-VOLU ME HISTOGRAM S BASIC 23725 [facility] RADIATION 3 [place] [address] [facility] BRA BRA DESIGN & CONSTRUCT ION COMPLEX ADMN SET A7003 YOUR YOUR SM VOL 3 PHARMACY PHARMACY NONFILHORSHAM CLINIC PNEUMAT NEBULIZR DISPBL SPMTRY 91484 SRINIVASAN BAR SRINIVASAN BAR W/VC 3 EXPIRATOR Y JONATHAN W/[place] [address] HURST BERNICE HURST BERNICE GUIDANCE 3 RADIATION THERAPY FLDS [place] TH[place] 81628 SHO SHAH SIMULAJ-A 3 IDED FIELD SETTING COMPLEX THERAPEUT 52887 SHO SHAH IC 3 RADIOLOGY [place] PLANNING COM[place]X PET 51879 [facility] 3 [place] PET [place] PET SKULL [facility] BASE TO MID-THIGH FLUORODEO A9552 [facility] XYGLUCOSE 3 [place] PET [place] PET F-18 FDG [facility] SCAN LLC DX UP TO 45 MCI O2 CONC 1 E1390 KAMALJIT MARTINEZ PORT 3 HOME HOME 85%/>02 MEDICAL MEDICAL CONC [facility] FL[facility] PRTBLE E0431 KAMALJIT MARI GASEOUS 3 HOME HOME O2 SYS MEDICAL MEDICAL RENT; EQUIPUT EQUIPUT FLWMTR HUMIDFR&M ASK BLOOD 88934 LEANDRA MOBLEY COUNT 3 N JORDYN N [facility] COMPLETE AUTO&AUTO DIFRNTL WBC BLOOD 20306 K[place] YOU COUNT 3 [facility] COMPLETE INC INC AUTO&AUTO DIFRNTL WBC ADMN SET A7003 YOUR YOUR SM VOL 3 [facility] PNEUMAT NEBULIZR DISPBL COMPREHEN 74944 KENY[place]TA YOU SIVE 3 [facility]OS[facility] METABOLIC INC INC PANEL PRTBLE E0431 KAMALJIT MARI GASEOUS 3 HOME HOME O2 SYS MEDICAL MEDICAL RENT; EQUIPUT EQUIPUT FLWMTR HUMIDFR&M ASK O2 CONC 1 E1390 KAMALJIT MARTINEZ PORT 3 HOME HOME 85%/>02 [facility] FLW RATE CONSLTJ&R 11630 ERIKA JAMES EPRT 3 LOLA DAVILA SLIDES PREPARED ELSEWHERE BLOOD 25780 K[facility]TA YOU COUNT 3 [facility] COMPLETE INC INC AUTO&AUTO DIFRNTL WBC RADIOLOGI 74101 RUSS SOLANO C EXAM 3 RHEA RHEA CHEST 2 VIEWS FRONTAL&L ATERAL NONINVASI 09433 KENY[facility]TA YOU VE 3 [facility] EAR/PULSE INC INC OXIMETRY SINGLE DETER PRESSURIZ 46447 KENYATTA YOU ED/NONPRE 3 [facility] SSURIZED INC INC INHALATIO N [facility] G0378 [place] YOU OBSERVATI 3 [facility] ON INC INC SERVICE PER HOUR BASIC 49727 K[place] YOU METABOLIC 3 [facility] PANEL INC INC CALCIUM TOTAL OBSERVATI 48084 MCKEMIE KEMIE ON CARE 3 [place] [address] K[place] YOU GUIDANCE 3 [facility] NEEDLE INC INC PLACEMENT CYTP FINE 72578 PICKLESIM PICKLESIM NDL 3 ER JR SANA ER JR SANA ASPIRATE IMMT CYTOHIST STD DX 1ST CYTP EVAL 70688 PICKLESIM PICKLESIM FINE 3 ER JR SANA ER JR SANA NEEDLE ASPIRATE INTERP & [place] [address] PICKLESIM PICKLESIM SURG 3 ER JR SANA ER JR SANA PATHOLOGY GROSS&DIONNA ROSCOPIC EXAM PRESSURIZ 31742 KENYATTA YOU ED/NONPRE 3 [facility] SSURIZED INC INC INHALATIO N TREATMENT NONINVASI 44479 KENYATTA YOU VE 3 [facility] EAR/PULSE INC INC OXIMETRY SINGLE DETER INITIAL 79989 BRYAN ADAMS OBSERVATI 3 MAURO MAURO ON CARE/DAY 30 MINUTES RADIOLOGI 86306 RUSS RUSS C EXAM 3 RHEA RHEA CHEST 2 VIEWS FRONTAL&L ATERAL CT THORAX 36427 KENYATTA YOU W/O 3 [facility] CONTRAST INC INC MATERIAL FINE 28184 KENY[place]TA YOU NEEDLE 3 [facility] ASPIRATIO INC INC N WITH IMAGING GUIDANCE ANESTHESI 92583 [facility] A CLOSED 3 ANESTH CHEST OF THE NEEDLE BLUE BIOPSY PLEURA PROTHROMB 46130 KENYATTA YOU IN TIME 3 [facility] INC INC BLOOD 39443 KENY[place]TA YOU COUNT 3 [facility] COMPLETE INC INC AUTO&AUTO DIFRNTL WBC THROMBOPL 17895 KENYATTA YOU ASTIN 3 [facility] TIME INC INC PARTIAL PLASMA/WH [facility] 59209 MCKEMIE MCKEMIE DISCHARGE 3 JR CHRYSTAL SANTOYO CHRYSTAL DAY MANAGEMEN T 30 MIN/< SBSQ 46511 [facility] 3 JR CHRYSTAL SANTOYO CHRYSTAL CARE/DAY 25 MINUTES NONINVASI 49637 [facility] 3 MAURO MAURO EAR/PULSE OXIMETRY SINGLE DETER INITIAL 13150 [facility] 3 MAURO MAURO CARE/DAY 50 MINUTES RADIOLOGI 83359 RUSS RUSS C EXAM 3 RHEA RHEA CHEST 2 VIEWS FRONTAL&L ATERAL ECG 01718 EMILY DIAZ JR ROUTINE 3 DWI DWI ECG W/LEAST 12 LDS I&[place] [address] RUSS RUSS ANGIOGRAP 3 RHEA RHEA HY [...] [facility] PNEUMAT NEBULIZR DISPBL RADIOLOGI 64302 [place] RUSS C 2 MEDICAL RHEA EXAMINATI IMAGING ON CHEST ASS SINGLE VIEW FRONTAL GROUND A0425 [facility] MILEAGE 2 AMBULANCE AMBULANCE PER SERVICE SERVICE STATUTE MILE AMB A0427 [facility] SERVICE 2 AMBULANCE AMBULANCE ALS SERVICE SERVICE EMERGENCY TRANSPORT LEVEL 1 BRNCDILAT 43801 BARBRA BELLE RSPSE 2 JR CHRYSTAL JARRELL SPMTRY PRE&POST- BRNCDILAT ADMN GAS 71543 BARBRA BELLE DILUT/WAS 2 JR CHRYSTAL JARRELL HOUT LUNG VOL W/WO DISTRIB VENT&V BLOOD 09737 KENY[place]TA YOU GASES ANY 2 [facility] INC INC COMBINATI ON PH PCO2 PO2 CO2 HCO3 PRTBLE E0431 KAMALJIT SEVILLARELL GASEOUS 2 HOME HOME O2 SYS MEDICAL MEDICAL RENT; EQUIPME EQUIPME FLWMTR HUMIDFR&M ASK O2 CONC 1 E1390 KAMALJIT MARI DEL PORT 2 HOME HOME 85%/>02 MEDICAL MEDICAL CONC [facility] FLW RATE [facility]D 10223 K[place]TA YOU RENDERING 2 [facility] INC INC W/INTERP& POSTPROC DIFF WORK STATION CT THORAX 72325 RUSS RUSS 2 RHEA RHEA W/CONTRAS T MATERIAL LOCM Q9967 KENYATTA YOU [phone] [facility] MG/ML INC INC IODINE CONCENTRA TION PER ML COMPREHEN 18644 KENYATTA YOU SIVE 2 [facility] [place] [address] KENYATTA YOU THYROID 2 [facility] STIMULATI INC INC NG HORMONE TSH CYANOCOBA 67328 KENY[place]TA YOU RAMBO 2 [facility] VITAMIN INC INC B-12 25 81756 KENY[place]TA YOU HYDROXY 2 [facility] INCLUDES INC INC FRACTIONS IF PERFORMED RADIOLOGI 39297 KENY[place]TA YOU C EXAM 2 [facility] CHEST 2 INC INC VIEWS FRONTAL&L ATERAL LIPID 37169 K[place]TA YOU PANEL 2 [facility] INC INC BLOOD 24522 K[place] YOU COUNT 2 [facility] COMPLETE INC INC AUTO&AUTO DIFRNTL WBC PRTBLE E0431 KAMALJIT MARI GASEOUS 2 HOME HOME O2 SYS MEDICAL MEDICAL RENT; EQUIPME EQUIPME FLWMTR HUMIDFR&M ASK O2 CONC 1 E1390 KAMALJIT MARI DEL PORT 2 HOME HOME 85%/>02 MEDICAL MEDICAL CONC AT EQUIPME EQUIPME [facility] FLW RATE ADMN SET A7003 [...] YOUR YOUR SM VOL 2 PHARMACY PHARMACY [facility] PNEUMAT NEBULIZR DISPBL CYANOCOBA 03867 KENY[place]TA YOU RAMBO 2 [facility] VITAMIN INC INC B-12 25 34234 [place] YOU HYDROXY 2 [facility] INCLUDES INC [place] [address] KENYATTA YOU THYROID 2 [facility] STIMULATI INC INC NG HORMONE TSH COMPREHEN 12962 K[place] YOU SIVE 2 [facility]OS[facility] METABOLIC INC INC PANEL LIPID 83480 [place] YOU PANEL 2 [facility]OS[facility] INC INC BLOOD 47106 K[place] YOU COUNT 2 MEM HOSP MEM [...] [facility] PNEUMAT NEBULIZR DISP [facility] DAY INTERNAL MANAGEMEN MED T 30 MIN/< MYOCARDIA 75962 [facility] 2 [facility] MULTIPLE CARDIOLOG STUDIES Y CLINIC SBSQ 96106 [facility] CARE/DAY INTERNAL 25 MED MINUTES SBSQ [address] CARE/DAY INTERNAL 25 MED MINUTES SBSQ [address] CARE/DAY INTERNAL 25 MED MINUTES CRITICAL 12623 NILSA [facility] 2 EMERGENCY ILL/INJUR SERVICES ED PATIENT INIT 30-74 MIN AMB A0427 [facility] SERVICE 2 AMBULANCE AMBULANCE ALS SERVICE SERVICE EMERGENCY TRANSPORT LEVEL 1 GROUND A0425 [facility] 2 AMBULANCE AMBULANCE PER SERVICE SERVICE STATUTE MILE INITIAL 13868 [facility] 2 [facility] CARE/DAY INTERNAL 50 MED MINUTES RADIOLOGI 66974 [place] RUSS 2 MEDICAL RHEA EXAMINATI IMAGING ON CHEST ASS SINGLE VIEW FRONTAL PRTBLE E0431 KAMALJITRACHEL MARI GASEOUS 2 HOME HOME O2 SYS MEDICAL MEDICAL RENT; EQUIPME EQUIPME FLWMTR HUMIDFR&M ASK O2 CONC 1 E1390 KAMALJIT SEVILLARELL DEL PORT 2 HOME HOME 85%/>02 MEDICAL MEDICAL CONC AT EQUIPME EQUIPME PRSC FLW RATE NEBULIZER E0570 KAMALJITRACHEL MARI WITH 2 HOME HOME COMPRESSO MEDICAL MEDICAL R EQUIPME EQUIPME ADMN SET A7003 YOUR YOUR SM VOL 2 [facility] PNEUMAT NEBULIZR DISPBL BLOOD 67084 K[place]TA YOU COUNT 2 [facility]OS[facility] COMPLETE INC INC AUTO&AUTO DIFRNTL WBC BASIC 33933 K[place] YOU METABOLIC 2 [facility] PANEL INC INC CALCIUM TOTAL O2 CONC 1 E1390 KAMALJIT MARI DEL PORT 2 HOME HOME 85%/>02 MEDICAL MEDICAL CONC AT EQUIPME EQUIPME PRSC FLW RATE PRTBLE E0431 KAMALJITRACHEL MARI GASEOUS 2 HOME HOME O2 SYS MEDICAL MEDICAL RENT; EQUIPME EQUIPME FLWMTR HUMIDFR&M [facility] 39097 [facility] 2 [facility] DAY MANAGEMEN T 30 MIN/< SBSQ 21462 [facility] 2 SALCHA MAURO CARE/DAY INTERNAL 25 MED MINUTES SBSQ [address] MAURO CARE/DAY INTERNAL 25 MED MINUTES SBSQ 57269 [facility] 2 CHRYSTAL [facility] CARE/DAY 25 MINUTES SBSQ 41073 [facility] 2 CHRYSTAL [facility] CARE/DAY 35 MINUTES INITIAL 33134 [facility] 2 CHRYSTAL [facility] CARE/DAY 70 MINUTES GROUND A0425 [facility] 2 AMBULANCE AMBULANCE PER SERVICE SERVICE STATUTE MILE INTUBATIO 26787 HE[facility] BUCK N 2 DIONNA DIONNA ENDOTRACH EAL EMERGENCY PROCEDURE ECG 83375 [facility] ROUTINE 2 DIONNA DIONNA ECG W/LEAST 12 LDS I&R ONLY CRITICAL 89811 [facility] CARE 2 DIONNA DIONNA ILL/INJUR ED PATIENT INIT 30-74 MIN AMB A0427 [facility] SERVICE 2 AMBULANCE AMBULANCE ALS SERVICE SERVICE EMERGENCY TRANSPORT LEVEL 1 INSERTION 9604 KENYATTA YOU OF 2 [facility] ENDOTRACH INC INC EAL TUBE CONT 9671 K[place] YOU INVASIVE 2 [facility] MECH VENT INC INC < 96 CONSECUTI VE HOURS O2 CONC 1 E1390 KAMALJIT KAMALJIT DEL PORT 1 HOME HOME 85%/>02 MEDICAL MEDICAL CONC AT EQUIPME EQUIPME PRS FLW RATE PRTBLE E0431 KAMALJIT KAMALJIT GASEOUS 1 HOME HOME O2 SYS MEDICAL MEDICAL RENT; EQUIPME EQUIPME FLWMTR HUMIDFR&M ASK RADIOLOGI 40130 RUSS RUSS C 1 RHEA RHEA EXAMINATI ON CHEST SINGLE VIEW FRONTAL ECG 27208 HEBER BUCK ROUTINE 1 DIONNA DIONNA ECG W/LEAST 12 LDS I&R ONLY PRTBLE E0431 KAMALJIT KAMALJIT GASEOUS 1 HOME HOME O2 SYS MEDICAL MEDICAL RENT; EQUIPME EQUIPME FLWMTR HUMIDFR&M ASK O2 CONC 1 E1390 KAMALJIT KAMALJIT DEL PORT 1 HOME HOME 85%/>02 MEDICAL MEDICAL CONC AT EQUIPME EQUIPME PRSC FLW RATE BASIC 37761 KENY[place] YOU METABOLIC 1 [facility] PANEL INC INC CALCIUM TOTAL ECG 55801 KENY[place]TA BELLE ROUTINE 1 [facility] W/LEAST P 12 LDS I&R ONLY ECG 19879 KENY[place]TA YOU ROUTINE 1 [facility] ECG INC INC W/LEAST 12 LDS TRCG ONLY W/O I&R RADIOLOGI 05271 ERIC NEWELLCHER C EXAM 1 MEDICAL RHEA CHEST 2 IMAGING VIEWS ASS FRONTAL&L ATERAL BLOOD 86713 KENY[place]TA YOU COUNT 1 [facility] COMPLETE INC INC AUTO&AUTO DIFRNTL WBC CULTURE 90680 K[place] YOU BACTERIAL 1 [facility] BLOOD INC INC AEROBIC W/ID ISOLATES PRESSURIZ 49578 KENY[place]TA YOU ED/NONPRE 1 MEM HOSP MEM [...] SERVICE SERVICE LIFE SUSTAININ G SITUATION RADIOLOGI 86116 [facility] 1 MEDICAL RHEA EXAMINATI IMAGING ON CHEST ASS SINGLE VIEW FRONTAL GROUND A0425 BILLY CERVANTES MILEAGE 1 AMBULANCE AMBULANCE PER SERVICE SERVICE STATUTE MILE ALS A0398 [facility]Y CERVANTES ROUTINE 1 AMBULANCE AMBULANCE DISPOSABL SERVICE SERVICE E SUPPLIES ECG 70781 NILSA SILVERIO ROUTINE 1 EMERGENCY III CHRYSTAL [...] MEDICAL MEDICAL RENT; EQUIPME EQUIPME FLWMTR HUMIDFR&M [facility] 37694 [facility]R DISCHARGE 1 MED CTR MANAGEMEN T > 30 MIN SBSQ 51237 [facility] 1 NATHANIEL CARE/DAY MED CTR 25 MINUTES SBSQ 55481 [facility] 1 NATHANIEL CARE/DAY MED CTR [address] BOB ROUTINE 1 NATHANIEL GAR ECG W/LEAST PHYSICIAN 12 LDS S I&R ONLY ECG [address] [facility] BOB ROUTINE 1 NATHANIEL GAR ECG W/LEAST PHYSICIAN 12 LDS S I&R ONLY ECHO 38045 [facility] 1 NATHANIEL TORIBIO 2D W/WOM-MOD PHYSICIAN E COMPL S SPEC&COLR D INITIAL 48657 [facility] 1 NATHANIEL CARE/DAY MED CTR 70 MINUTES ALS A0398 FIRE DEPT FIRE DEPT ROUTINE 1 OF OF DISPOSABL NAFISA SKELTON E DAYTO DAYTO SUPPLIES GROUND A0425 FIRE DEPT FIRE DEPT MILEAGE 1 OF OF PER NAFISA SKELTON STATUTE DAYTO DAYTO MILE ECG 85250 DIAGNOSTI BOB ROUTINE 1 C GAR ECG CARDIOLOG W/LEAST ISTS INC 12 LDS I&R ONLY RADIOLOGI 02725 RADIOLOGY VIANEY C EXAM 1 TUS CHEST [...] 85%/>02 EQUIP. L EQUIP. L CONC AT [facility] FLW RATE PRTBLE E0431 KAMALJIT MARI GASEOUS 1 HOME MED HOME MED O2 SYS EQUIP. L EQUIP. L RENT; FLWKYR HUMIDFR&M ASK PRTBLE E0431 KAMALJIT MARI GASEOUS 1 HOME MED HOME MED O2 SYS EQUIP. L EQUIP. L RENT; UTWMTR HUMIDFR&M ASK O2 CONC 1 E1390 KAMALJIT MARI DEL PORT 1 HOME MED HOME MED 85%/>02 EQUIP. L EQUIP. L CONC AT [facility] FLW RATE O2 CONC 1 E1390 KAMALJIT MARI DEL PORT 1 HOME MED HOME MED 85%/>02 EQUIP. L EQUIP. L CONC AT [facility] FLW RATE PRTBLE E0431 KAMALJIT MARI GASEOUS 1 HOME MED HOME MED O2 SYS EQUIP. L EQUIP. L RENT; FLWMTR HUMIDFR&M ASK AMB A0422 FIRE DEPT FIRE DEPT OXYGEN&O2 1 OF OF SUPPLIES BELLKEMUUE BELLKEMUUE LIFE DAYTO DAYTO SUSTAININ G SITUATION NATRIURET [address] IC 1 NATHANIEL ARMSTRONG PEPTIDE FT FT BOBBY ROSALES RADIOLOGI [address] C 1 NATHANIEL ARMSTRONG EXAMINATI FT FT ON CHEST BOBBY ROSALES SINGLE VIEW FRONTAL ECG [address] ROUTINE 1 NATHANIEL ARMSTRONG ECG FT FT W/LEAST BOBBY ROSALES 12 [facility] TRCG ONLY W/O I&[place] [address] TROPONIN 1 NATHANIEL ARMSTRONG QUANTITAT FT FT CARLOS BOBBY ROSALES BLOOD [address] COUNT 1 NATHANIEL ARMSTRONG COMPLETE FT FT AUTO&AUTO BOBBY ROSALES DIFRNTL WBC THER [address] PROPH/DX 1 NATHANIEL ARMSTRONG NJX IV FT FT PUSH BOBBY ROSALES SINGLE/1S T SBST/DRUG ECG 87609 DIAGNOSTI MCDANNOLD ROUTINE 1 C PEG ECG CARDIOLOG W/LEAST ISTS INC 12 LDS I&R ONLY GROUND A0425 FIRE DEPT FIRE DEPT MILEAGE 1 OF OF PER BELLEVUUE BELLEVUUE STATUTE DAYTO DAYTO MILE ALS A0398 FIRE DEPT FIRE DEPT ROUTINE 1 OF OF DISPOSABL BELLEVUUE BELLEVUUE E DAYTO DAYTO SUPPLIES THERAPEUT [address] IC 1 NATHANIEL ARMSTRONG INJECTION FT FT IV PUSH BOBBY ROSALES EACH NEW DRUG AMB A0427 FIRE DEPT FIRE DEPT SERVICE 1 OF OF [facility] EMERGENCY DAYTO DAYTO TRANSPORT LEVEL [address] METABOLIC 1 NATHANIEL ARMSTRONG PANEL FT FT CALCIUM BOBBY ROSALES TOTAL THER 17497 ST PROPH/DX 1 NATHANIEL ARMSTRONG NJX EA FT FT SEQL IV BOBBY ROSALES PUSH SBST/DRUG FAC O2 CONC 1 E1390 KAMALJIT SEVILLARELL DEL PORT 1 HOME MED HOME MED 85%/>02 EQUIP. L EQUIP. L CONC AT [facility] FLW RATE PRTBLE E0431 KAMALJIT MARI GASEOUS 1 HOME MED HOME MED O2 SYS EQUIP. L EQUIP. L RENT; [facility] HUMIDFR&M ASK PRTBLE E0431 KAMALJIT KAMALJIT GASEOUS 1 HOME MED HOME MED O2 SYS EQUIP. L EQUIP. L RENT; [facility] HUMIDFR&M ASK O2 CONC 1 E1390 [facility] 1 HOME MED HOME MED 85%/>02 EQUIP. L EQUIP. L CONC AT [facility] FLW RATE O2 CONC 1 E1390 [place] [address] HOME MED HOME MED 85%/>02 EQUIP. L EQUIP. L CONC AT [facility] FLW RATE PRTBLE E0431 KAMALJIT KAMALJIT GASEOUS 1 HOME MED HOME MED O2 SYS EQUIP. L EQUIP. L RENT; [facility] HUMIDFR&M [facility] [address] [facility] DISCHARGE 1 [facility] DAY MED CTR MANAGEMEN T 30 MIN/< SBSQ 04602 [facility] 1 [facility] CARE/DAY MED CTR 25 MINUTES ECG 69810 DIAGNOSTI MCDANNOLD ROUTINE 1 C PEG ECG CARDIOLOG W/LEAST ISTS INC 12 LDS I&R ONLY ECG 24444 DIAGNOSTI MCDANNOLD ROUTINE 1 C PEG ECG CARDIOLOG W/LEAST ISTS INC 12 LDS I&R ONLY ALS A0398 FIRE DEPT FIRE DEPT ROUTINE 1 OF OF DISPOSABL NAFISA SKELTON E DAYTO DAYTO SUPPLIES GROUND A0425 FIRE DEPT FIRE DEPT MILEAGE 1 OF OF LALIT SKELTON STATUTE DAYTO DAYTO MILE RADIOLOGI 75541 RADIOLOGY SCHMITTER C 1 MICAH EXAMINATI ASSOCIATE ON CHEST [place] [address] RADIOLOGY DARDINGER ANGIOGRAP 1 MICAH HY CHEST ASSOCIATE W/CONTRAS S PSC T/NONCONT RAST AMB A0427 FIRE DEPT FIRE DEPT SERVICE 1 OF OF JAIDEN SKELTON EMERGENCY DAYTO DAYTO TRANSPORT LEVEL 1 O2 CONC 1 E1390 KAMALJIT MARI DEL PORT 0 HOME MED HOME MED 85%/>02 EQUIP. L EQUIP. L CONC AT [facility] FLW RATE PRTBLE E0431 KAMALJIT MARI GASEOUS 0 HOME MED HOME MED O2 SYS EQUIP. L EQUIP. L RENT; FLWMTR [facility] [address] [facility] DISCHARGE 0 NATHANIEL RAJ DAY MED CTR MANAGEMEN T > 30 MIN [facility] 30828 [facility] [address] [facility] CARE/DAY MED CTR 25 MINUTES [facility] 52746 [facility] C[facility]/DAY MED CTR 25 MINUTES CRITICAL 06218 EMERGENCY SEJAL CARE 0 CARE LISA ILL/INJUR PHYS ED NORTHERN PATIENT INIT 30-74 MIN [facility] A0427 FIRE DEPT FIRE DEPT SERVICE 0 OF OF JAIDEN SKELTON EMERGENCY DAYTO DAYTO TRANSPORT LEVEL 1 AMB A0422 FIRE DEPT FIRE DEPT OXYGEN&O2 0 OF OF SUPPLIES NAFISA SKELTON LIFE DAYTO DAYTO SUSTAININ G SITUATION RADIOLOGI 01239 RADIOLOGY NEILS LEO C 0 EXAMINATI ASSOCIATE ON CHEST S PSC SINGLE VIEW FRONTAL GROUND A0425 FIRE DEPT FIRE DEPT MILEAGE 0 OF OF LALIT SKELTON STATUTE DAYTO DAYTO MILE INITIAL 19437 [facility] 0 NATHANIEL GERRI CARE/DAY MED CTR 50 MINUTES ALS A0398 FIRE DEPT FIRE DEPT ROUTINE 0 OF OF DISPOSABL TARIQUUE BELLEVUUE E DAYTO DAYTO SUPPLIES ECG [address] NIV ROUTINE 0 C ECG CARDIOLOG W/LEAST ISTS INC 12 LDS I&R ONLY PRTBLE E0431 KAMALJIT MARI GASEOUS 0 HOME MED HOME MED O2 SYS EQUIP. L EQUIP. L RENT; [facility] HUMIDFR&M ASK O2 CONC 1 E1390 KAMALJIT MARI DEL PORT 0 HOME MED HOME MED 85%/>02 EQUIP. L EQUIP. L CONC AT [facility] 36627 [facility] DISCHARGE 0 NATHANIEL DAY MED CTR MANAGEMEN T > 30 MIN SBSQ 73519 [facility] 0 NATHANIEL CARE/DAY MED CTR 25 MINUTES RADIOLOGI 23224 RADIOLOGY VIANEY C EXAM 0 TUS CHEST 2 ASSOCIATE VIEWS S PSC FRONTAL&L ATERAL INITIAL 10964 [facility] 0 NATHANIEL CARE/[place] [address] [place] [address] RADIOLOGY RANJIT LIMITED/L 0 MAURO OCALIZED ASSOCIATE [...] TARIQUUE TARIQUUE STATUTE DAYTO DAYTO MILE ECG 16019 DIAGNOSTI RO NIV ROUTINE 0 C ECG CARDIOLOG W/LEAST ISTS INC 12 LDS I&R ONLY CRITICAL 21151 EMERGENCY VEST QUIANA CARE 0 CARE ILL/INJUR PHYS ED NORTHERN PATIENT INIT 30-74 MIN RADIOLOGI 67084 RADIOLOGY SURESH BYR C 0 EXAMINATI ASSOCIATE ON CHEST S PSC [place] FRONTAL AMB A0427 FIRE DEPT FIRE DEPT SERVICE 0 [facility] DAY[facility] DAYTO TRANSPORT LEVEL 1 O2 CONC 1 E1390 KAMALJIT KAMALJIT DEL [place] 0 HOME MED HOME MED 85%/>02 EQUIP. L EQUIP. L CONC AT [facility] FLW RATE PRTBLE E0431 KAMALJIT KAMALJIT GASEOUS 0 HOME MED HOME MED O2 SYS EQUIP. L EQUIP. L [facility]; [facility] PRTBLE E0431 KAMALJIT KAMALJIT GASEOUS 0 HOME MED HOME MED O2 SYS EQUIP. L EQUIP. L RENT; [facility] HUMIDFR&M ASK O2 CONC 1 E1390 KAMALJIT KAMALJIT [place] 0 HOME MED HOME MED 85%/>02 EQUIP. L EQUIP. L CONC AT [facility] FLW RATE O2 CONC 1 E1390 KAMALJIT KAMALJIT DEL [place] 0 HOME MED HOME MED 85%/>02 [facility]QUIP. L [facility]. [facility] KAMALJIT KAMALJIT GASEOUS 0 HOME MED HOME MED O2 SYS EQUIP. L EQUIP. L RENT; [facility] HUMIDFR&M ASK PRTBLE E0431 KAMALJIT KAMALJIT GASEOUS 0 HOME MED HOME MED O2 SYS EQUIP. EQUIP. RENT; [facility] HUMIDFR&M ASK O2 CONC 1 E1390 KAMALJIT KAMALJIT DEL [place] 0 HOME MED HOME MED 85%/>02 EQUIP. [facility]. [facility] 1 E1390 KAMALJIT KAMALJIT [place] 0 HOME MED HOME MED 85%/>02 EQUIP. [facility]. [facility] PR[facility] E0431 KAMALJIT KAMALJIT GASEOUS 0 HOME MED HOME MED O2 SYS EQUIP. EQUIP. RENT; [facility] HUMIDFR&M ASK PRTBLE E0431 KAMALJIT KAMALJIT GASEOUS 0 HOME MED HOME MED O2 SYS EQUIP. EQUIP. RENT; [facility] HUMIDFR&M ASK O2 CONC 1 E1390 KAMALJIT KAMALJIT [place] 0 HOME MED HOME MED 85%/>02 EQUIP. EQUIP. CONC AT [facility] FLW RATE O2 CONC 1 E1390 KAMALJIT KAMALJIT [place] 0 HOME MED HOME MED 85%/>02 EQUIP. EQUIP. CONC AT [facility] FLW RATE PRTBLE E0431 KAMALJIT KAMALJIT GASEOUS 0 HOME MED HOME MED O2 SYS EQUIP. EQUIP. RENT; [facility] FLWMTR HUMIDFR&M ASK PRTBLE E0431 KAMALJIT KAMALJIT GASEOUS 0 HOME MED HOME MED O2 SYS EQUIP. EQUIP. RENT; [facility] FLWMTR HUMIDFR&M ASK O2 CONC 1 E1390 KAMALJIT SEVILLARELL DEL [place] 0 HOME MED HOME MED 85%/>02 EQUIP. EQUIP. CONC AT [facility] FLW RATE ANESTHESI 56470 INDEPENDE CHAPISROOR, A EYE 0 NT ALAM LENS ANESTHESI SURGERY OLOGIST CATARACT 14431 [facility], REMOVAL 0 I EYE [facility] CATARACT 97272 [facility], REMOVAL 0 I EYE [facility] ANESTHESI 26700 INDEPENDE [place], A EYE 0 NT FAVIOLA LENS ANESTHESI J SURGERY OLOGIST OPH BMTRY 46271 [facility], PRTL 0 I EYE [facility] INTRFRMTR Y IO LENS PWR JAIRON OPHTH 44950 [facility] 9 I EYE CANDY Shea &[facility] COMPRHNSV ESTAB PT 1/> HOSPITAL [address] PATIENT [facility], DISCHARGE 9 FIRST CASSANDRA G DAY PHYS MANAGEMEN T 30 MIN/< INITIAL 37892 PATIENT [facility], HOSPITAL 9 FIRST CASSANDRA G CARE/DAY PHYS 70 MINUTES ECG 45762 [address], ROUTINE 9 C NIVA ECG CARDIOLOG W/LEAST ISTS INC 12 LDS I&R ONLY RHYTHM 51149 EMERGENCY HERFEL, ECG 1-3 9 CARE AGUILAR U LEADS PHYS INTERPRET [place] REPRT ON RADIOLOGI 56879 RADIOLOGY Olegario MARTINEZ 9 ROBERT Shea EXAMINATI ASSOCIATE ON CHEST S PSC [facility] 27889 [facility]IENT [facility] [facility], DISCHARGE 9 FIRST [place] C DAY PHYS MANAGEMEN T 30 MIN/< RADIOLOGI 59984 RADIOLOGY Olegario SLAUGHTER EXAM 9 KO H CHEST 2 ASSOCIATE VIEWS S PSC FRONTAL&L ATERAL SBSQ 02842 PATIENT [facility] 9 FIRST [place] C CARE/DAY PHYS 25 MINUTES SBSQ 57951 PATIENT [facility] 9 FIRST [place] C CARE/DAY PHYS 25 MINUTES SBSQ 16863 PATIENT [facility] 9 FIRST [place] C CARE/DAY PHYS 25 MINUTES SBSQ 61353 PATIENT [facility] 9 FIRST [place] C CARE/DAY PHYS 25 MINUTES INITIAL 92016 PATIENT [facility] 9 FIRST [place] CARE/DAY PHYS 50 MINUTES GROUND A0425 [facility] MILEAGE 9 CO FIRE CO FIRE PER PROTECTIO PROTECTIO STATUTE N DIST #1 N DIST #1 MILE AMBULANCE A0429 [facility] SERVICE 9 CO FIRE CO FIRE BLS PROTECTIO PROTECTIO EMERGENCY N DIST #1 N DIST #1 TRANSPORT ECG 89131 DIAGNOSTI JAYJAY, ROUTINE 9 C NIVA ECG CARDIOLOG W/LEAST ISTS INC 12 LDS I&R ONLY RADIOLOGI 73318 RADIOLOGY Olegario FOX EXAMINAMYRTLE ASSOCIATE ON CHEST S PSC SINGLE VIEW FRONTAL [facility] A0422 [facility] OWENS OXYGEN&O2 9 CO FIRE CO FIRE SUPPLIES PROTECTIO PROTECTIO LIFE N DIST #1 N DIST #1 [facility] 36702 PATIENT [facility], DISCHARGE 9 FIRST [place] DAY PHYS MANAGEMEN T 30 MIN/< SBSQ 36384 PATIENT [facility] 9 FIRST [place] CARE/DAY PHYS 25 MINUTES SBSQ 22304 PATIENT [facility] 9 FIRST [place] C CARE/DAY PHYS 25 MINUTES SBSQ 00337 PATIENT [facility] 9 [place] CARE/DAY PHYS 25 MINUTES ECG 51642 DIAGNOSTI JOHANNE ROUTINE 9 C , TATE J ECG CARDIOLOG W/LEAST ISTS INC 12 LDS I&R ONLY ECG 87622 DIAGNOSTI MCDANNOLD ROUTINE 9 C , TATE J ECG CARDIOLOG W/LEAST ISTS INC 12 LDS I&R ONLY RADIOLOGI 25093 RADIOLOGY Olegario STONE EXAM 9 CHEST 2 ASSOCIATE NATHANIEL Meehan PSC A FRONTAL&L ATERAL GROUND A0425 [facility] MILEAGE 9 CO FIRE CO FIRE PER PROTECTIO PROTECTIO STATUTE N DIST #1 N DIST #1 MILE ALS A0398 [facility] ROUTINE 9 CO FIRE CO FIRE DISPOSABL PROTECTIO PROTECTIO E N DIST #1 N DIST #1 SUPPLIES INITIAL 56372 PATIENT [facility] 9 [place] CARE/DAY PHYS 50 MINUTES RHYTHM 57744 EMERGENCY JUAN ANTONIO, ECG 1-3 9 CARE MIMI D LEADS PHYS INTERPRET [place] [facility] [place] REPRT ON AMB A0427 [facility] LYMAN SERVICE 9 CO FIRE CO FIRE ALS PROTECTIO PROTECTIO EMERGENCY N DIST #1 N DIST #1 TRANSPORT LEVEL 1 OPH 17977 JIMBO ALEGRIA, MEDICAL 9 VISION CARLA M XM&EVAL COMPRE NEW PT 1/> VST HEPATIC 49739 [facility] YOU FUNCTION 9 [facility] PANEL INC INC LIPID 67811 [facility] YOU PANEL 9 [facility] INC INC BASIC 05838 [facility] YOU METABOLIC 9 [facility] PANEL INC INC [facility] 9 Jamee SANTOYO V JR, J V DAY MANAGEMEN T 30 MIN/< SBSQ 40313 [facility] 9 , J V JR, J V CARE/DAY 15 MINUTES SBSQ 99518 [facility] 9 , J V JR, J V CARE/DAY 25 MINUTES AMB A0427 [facility] SERVICE 9 AMBULANCE AMBULANCE ALS SERVICE SERVICE EMERGENCY TRANSPORT LEVEL 1 INITIAL 42018 [facility] 9 JR J V JR, J V CARE/DAY 50 MINUTES GROUND A0425 [facility] MILEAGE 9 AMBULANCE AMBULANCE PER SERVICE SERVICE STATUTE MILE ECG 22411 KENY[facility]TA ADAMS, ROUTINE 9 [facility] W/LEAST PROF SERV 12 LDS I&R ONLY RADIOLOGI 27862 Olegario MOLINA 9 MEDICAL CAROL EXAMINATI IMAGING ON CHEST ASSOCIATE SINGLE S VIEW FRONTAL AMB A0422 BILLY CERVANTES OXYGEN&O2 9 AMBULANCE AMBULANCE SUPPLIES SERVICE SERVICE LIFE SUSTAININ G SITUATION OBSERVATI 18789 Claudia MITCHELL ON CARE 9 LUIS ALBERTO Melvin DISCHARGE PSC MANAGEMEN T INITIAL 73197 Claudia IMTCHELL OBSERVATI 9 LUIS ALBERTO Melvin ON PSC CARE/DAY 50 MINUTES GROUND A0425 [facility] CERV[facility] MILEAGE 9 AMBULANCE AMBULANCE PER SERVICE SERVICE STATUTE MILE ECG 83534 KENY[place]TA BELLE ROUTINE 9 [facility] W/LEAST PROF SERV 12 LDS I&R ONLY AMB A0422 BILLY CERVANTES OXYGEN&O2 9 AMBULANCE AMBULANCE SUPPLIES SERVICE SERVICE LIFE SUSTAININ G SITUATION RADIOLOGI 80372 Olegario MOLINA 9 MEDICAL CAROL EXAMINATI IMAGING ON CHEST ASSOCIATE SINGLE S VIEW FRONTAL AMB A0427 BILLY [facility] SERVICE 9 AMBULANCE AMBULANCE ALS SERVICE SERVICE EMERGENCY TRANSPORT LEVEL 1 AMB A0427 BILLY [facility] SERVICE 9 AMBULANCE AMBULANCE ALS SERVICE SERVICE EMERGENCY TRANSPORT LEVEL 1 COMPREHEN 57433 [facility] SIVE 9 [facility] METABOLIC INC INC PANEL BLOOD 81174 [facility] YOU GASES ANY 9 [facility] INC INC COMBINATI ON PH PCO2 PO2 CO2 HCO3 RADIOLOGI 54241 Olegario REYES EXAM 9 MEDICAL GEORGE P CHEST 2 IMAGING VIEWS ASSOCIATE FRONTAL&L S ATERAL BLOOD 40790 [facility] YOU COUNT 9 [facility] COMPLETE INC INC AUTO&AUTO DIFRNTL WBC GROUND A0425 [facility]ILLY CERV[facility] MILEAGE 9 AMBULANCE AMBULANCE PER SERVICE SERVICE STATUTE MILE AMB A0422 BILLY CERV[facility] OXYGEN&O2 9 AMBULANCE AMBULANCE SUPPLIES SERVICE SERVICE LIFE SUSTAININ G SITUATION PRESSURIZ 16002 [facility] YOU ED/NONPRE 8 [facility] SSURIZED INC INC INHALATIO N TREATMENT ECG 04959 [facility] YOU ROUTINE 8 [facility] ECG INC INC W/LEAST 12 LDS TRCG ONLY W/O I&R ECG 80299 KENYATTA ADAMS, ROUTINE 8 [facility] W/LEAST PROF SERV 12 LDS I&R ONLY RHYTHM 52593 K[facility]TA YOU ECG 1-3 8 [facility] LEADS INC INC TRACING ONLY W/O I&R IV NFUS 50341 [facility] YOU THER 8 [facility] PROPH/DX INC INC EA HR BLOOD 11862 [facility] YOU COUNT 8 [facility] COMPLETE INC INC AUTO&[place] [address] [place] YOU TROPONIN 8 [facility] QUANTITAT INC INC CARLOS PRESSURIZ 78011 KNEY[place]TA YOU ED/NONPRE 8 [facility] SSURIZED INC INC INHALATIO N TREATMENT CREATINE 41773 [facility] YOU KINASE 8 [facility] TOTAL INC INC NATRIURET 28920 [facility] YOU IC 8 [facility] [place] 41763 [facility] YOU THER 8 [facility] PROPH/DX INC INC 1ST >1 HR CREATINE 68473 [facility] YOU KINASE MB 8 [facility] FRACTION INC INC ONLY RADIOLOGI 41952 [facility] YOU C 8 [facility] EXAMINATI INC INC ON CHEST SINGLE VIEW FRONTAL BASIC 32446 [facility] YOU METABOLIC 8 [facility] PANEL INC INC CALCIUM TOTAL BLS A0382 LINDA MCKEON ROUTINE 8 CO CO DISPOSABL AMBULANCE AMBULANCE E SERVICE SERVICE SUPPLIES AMBULANCE A0429 LINDA LINDA SERVICE 8 CO CO BLS AMBULANCE AMBULANCE EMERGENCY SERVICE SERVICE TRANSPORT GROUND A0425 LINDA MCKEON MILEAGE 8 CO CO PER AMBULANCE AMBULANCE STATUTE SERVICE SERVICE [facility] 8 Jamee SANTOYO JR, J V DAY MANAGEMEN T 30 MIN/< SBSQ 35345 [facility] 8 JR, J V JR, J V CARE/DAY 15 MINUTES SBSQ 57040 [facility] 8 JR, J V JR, J V CARE/DAY 15 MINUTES SBSQ [address] E CARE/DAY EMD 25 MINUTES SBSQ [address] E CARE/DAY EMD 25 MINUTES SBSQ [address] E CARE/DAY EMD 25 MINUTES AMB A0427 [facility] SERVICE 8 AMBULANCE AMBULANCE ALS SERVICE SERVICE EMERGENCY TRANSPORT LEVEL 1 GROUND A0425 [facility] MILEAGE 8 AMBULANCE AMBULANCE PER SERVICE SERVICE STATUTE MILE INITIAL [address] E CARE/DAY EMD 50 MINUTES RADIOLOGI 31371 Olegario REYES EXAM 8 MEDICAL GEORGE P CHEST 2 IMAGING VIEWS ASSOCIATE FRONTAL&L S ATERAL AMB A0422 [facility] OXYGEN&O2 8 AMBULANCE AMBULANCE SUPPLIES SERVICE SERVICE LIFE SUSTAININ G SITUATION AMB A0422 LINDA LINDA OXYGEN&O2 8 CO CO SUPPLIES AMBULANCE AMBULANCE LIFE SERVICE SERVICE SUSTAININ G SITUATION THER [address] [facility] [address] [place] PROPH/DX [address] [place], [place] [address]X EA [facility] SEQL IV PUSH SBST/DRUG RADIOLOGI 37881 RADIOLOGY Olegario [place] 8 ALMA Mancuso EXAMINATI ASSOCIATE ON CHEST S [place] [address] [facility] TROPONIN [address] [place] [address] QUANTITAT [facility] CARLOS BLOOD [address] [facility] COUNT [address] [place] [address] COMPLETE [facility] B[facility] AUTO&AUTO DIFRNTL WBC ECG [address] [facility] ROUTINE [address] [place] [address] ECG [facility] B[facility] W/LEAST 12 LDS TRCG ONLY W/O I&R FIBRIN [address] [facility] [address] [place] DGRADJ [address] [place] [address] PRODUCTS [facility] D-DIMER ULTRASENS ITIVE THER [address] [facility] [address] [place] PROPH/DX [address] [place], [place] [address]X IV EAST EAST PUSH 1ST SBST/DRUG AMBULANCE A0429 LINDA LINDA SERVICE 8 CO CO BLS AMBULANCE AMBULANCE EMERGENCY SERVICE SERVICE TRANSPORT GROUND A0425 LINDA LINDA MILEAGE 8 CO CO PER AMBULANCE AMBULANCE STATUTE SERVICE SERVICE MILE BASIC [address] TOTAL [facility] [address] PATIENT KLAUDIA, DISCHARGE 8 FIRST CASSANDRA G DAY PHYS MANAGEMEN T 30 MIN/< SBSQ 15552 PATIENT [facility] 8 FIRST [place] CARE/DAY PHYS 15 MINUTES INITIAL 50410 PATIENT [facility] 8 [place] CARE/DAY PHYS 50 MINUTES ECHO 57933 CARDIOLOG GARCIA, TRANSTHOR 8 Y SHELBI D AC R-T 2D ASSOCIATE W/WO S M-MODE REC COMP DOPPLER 43657 CARDIOLOG GARCIA, ECHOCARD 8 Y SHELBI D PULSE ASSOCIATE WAVE S W/SPECTRA L DISPLAY BLS A0382 LINDA LINDA ROUTINE 8 CO CO DISPOSABL AMBULANCE AMBULANCE E SERVICE SERVICE SUPPLIES RADIOLOGI 44849 RADIOLOGY NEILS, C EXAM 8 NOEMY W CHEST 2 ASSOCIATE VIEWS S PSC FRONTAL&L ATERAL ECG 18106 DEJON ROJSA, ROUTINE 8 C FAUSTINO ECG CARDIOLOG W/LEAST [...] AMBULANCE AMBULANCE STATUTE SERVICE SERVICE MILE BLOOD 59601 [facility] COUNT [address] [place] [address] AUTOMATED ECG 52485 DEJON WHITING ROUTINE 8 C , TATE J ECG CARDIOLOG W/LEAST ISTS INC 12 LDS I&R ONLY THER 01824 [facility] PROPH/DX [address] [place] [address] NJX IV [facility] PUSH 1ST SBST/DRUG ECG 37338 [facility] ROUTINE [address] [place] [address] ECG [facility] B[facility] W/LEAST 12 LDS TRCG ONLY W/O I&R RADIOLOGI 30749 [facility] C EXAM [address] [place] [address] CHEST 2 EAST EAST VIEWS FRONTAL&[place] [address] [facility] TROPONIN [address] [place] [address] QUANTITAT [facility] CARLOS BASIC 69714 [facility] METABOLIC [address] [place] [address] PANEL EAST EAST CALCIUM TOTAL BASIC 32055 PATIENT KALFAS, METABOLIC 8 FIRST [place] C PANEL PHYS CALCIUM TOTAL LIPID 89694 PATIENT KALFAS, PANEL 8 FIRST [place] C PHYS AMBULANCE A0429 LINDA LINDA SERVICE 8 CO CO BLS AMBULANCE AMBULANCE EMERGENCY SERVICE SERVICE TRANSPORT GROUND A0425 LINDA LINDA MILEAGE 8 CO CO PER AMBULANCE AMBULANCE STATUTE SERVICE SERVICE MILE PRESSURIZ 20965 [facility] YOU ED/NONPRE 8 [facility] SSURIZED INC INC INHALATIO N TREATMENT BLOOD 24663 [facility] YOU COUNT 8 [facility] COMPLETE INC INC AUTO&[place] [address] K[facility] YOU TROPONIN 8 [facility] QUANTITAT INC INC CARLOS ECG 23478 [facility] YOU ROUTINE 8 [facility] ECG INC INC W/LEAST 12 LDS TRCG ONLY W/O I&R ECG 40306 [facility]Y TRIPLETT 8 [facility] W/LEAST PROF SERV 12 LDS I&R ONLY BLS A0382 LINDA MCKEON ROUTINE 8 CO CO DISPOSABL AMBULANCE AMBULANCE E SERVICE SERVICE SUPPLIES CREATINE 37749 K[facility]TA YOU KINASE MB 8 [facility] FRACTION INC INC ONLY RADIOLOGI 00439 Olegario REYES 8 MEDICAL GEORGE Phillips EXAMINATI IMAGING ON CHEST ASSOCIATE SINGLE S VIEW FRONTAL CREATINE 17566 [facility] YOU KINASE 8 [facility] TOTAL INC INC BASIC 86983 [facility] YOU METABOLIC 8 [facility] PANEL INC INC [facility] [address] [facility] [facility] DISCHARGE 8 JR, J V JR, J V DAY MANAGEMEN T 30 MIN/< SBSQ 18718 [facility] 8 JR, J V JR, J V CARE/DAY 25 MINUTES INITIAL 88167 [facility] 8 JR, J V JR, J V CARE/DAY 50 MINUTES INITIAL [address] [facility] OBSERVATI 8 JR, J V JR, J V ON CARE/DAY 50 MINUTES ECG 87442 KENY[place]TA BELLE ROUTINE [address] [facility] W/LEAST PROF SERV 12 LDS I&R ONLY RADIOLOGI 47959 Olegario REYES EXAM 8 MEDICAL [place] P CHEST 2 IMAGING VIEWS ASSOCIATE FRONTAL&L S ATERAL GROUND A0425 LINDA LINDA MILEAGE 8 CO CO PER AMBULANCE AMBULANCE STATUTE SERVICE SERVICE MILE AMBULANCE A0429 LINDA LINDA SERVICE 8 CO CO BLS AMBULANCE AMBULANCE EMERGENCY SERVICE SERVICE TRANSPORT BLS A0382 LINDA LINDA ROUTINE 8 CO CO DISPOSABL AMBULANCE AMBULANCE E SERVICE SERVICE [facility] [address] EMILY DIAZ, DISCHARGE 8 [facility] E DAY EMD MANAGEMEN T 30 MIN/< RADIOLOGI 42627 Olegario REYES EXAM 8 MEDICAL [place] P CHEST 2 IMAGING VIEWS ASSOCIATE FRONTAL&L S ATERAL SBSQ [address] E CARE/DAY EMD 25 MINUTES SBSQ [address] E CARE/DAY EMD 25 MINUTES ECG 01275 KENYATTA DIAZ, ROUTINE [address] [facility] W/LEAST PROF SERV 12 LDS I&R ONLY SBSQ [address] E CARE/DAY EMD 25 MINUTES SBSQ 25063 [facility] 8 [facility] E CARE/DAY EMD 25 MINUTES ECG 44680 KENYATTA DIAZ, ROUTINE [address] [facility] W/LEAST PROF SERV 12 LDS I&R ONLY AMBULANCE A0429 LINDA LINDA SERVICE 8 CO CO BLS AMBULANCE AMBULANCE EMERGENCY SERVICE SERVICE TRANSPORT GROUND A0425 LINDA LINDA MILEAGE 8 CO CO PER AMBULANCE AMBULANCE STATUTE SERVICE SERVICE MILE INITIAL [address] CARE/DAY EMD 50 MINUTES RADIOLOGI 80220 Olegario MOLINA 8 MEDICAL CAROL EXAMINATI IMAGING ON CHEST ASSOCIATE SINGLE S VIEW FRONTAL BLS A0382 LINDA LINAD ROUTINE 8 CO CO DISPOSABL AMBULANCE AMBULANCE E SERVICE SERVICE SUPPLIES Encounters Encounter Start End Date Code Location Performer Type Date EMERGENCY 11773 [facility] 7 PHYSICIAN U VISIT S, [facility] HIGH SEVERITY& THREAT FUN EMERGENCY 43355 [facility] 7 7 [facility] DEPARTMEN INC T VISIT HIGH/URGE NT SEVERITY [facility]OSPITAL [facility] - 7 7 [facility] OUTPATIEN [facility] - 7 7 [facility] INPATIENT INC EMERGENCY 67073 [facility] DE[facility] 7 7 PHYSICIAN VISIT S, [facility] HIGH SEVERITY& THREAT FUNCJ EMERGENCY 70177 [facility] DEPT 6 6 [facility] VISIT INC HIGH SEVERITY& THREAT FUN [facility]OSPITAL [facility] - 6 6 [facility] OUTPATIEN [facility] EMERGENCY 11668 [facility] 6 6 [facility] DEPARTMEN INC T VISIT HIGH/URGE NT SEVERITY HOSPITAL [facility] - 6 6 [facility] OUTPATIEN [facility] EMERGENCY 46160 [facility] DEPT 6 6 [facility] VISIT INC HIGH SEVERITY& THREAT FUN HOSPITAL [facility] - 6 6 [facility] OUTPATIEN [facility] T OFFICE 32792 [facility] 6 NATHANIEL N T VISIT MED CTR 15 MINUTES OFFICE 12010 JAYJAY NIV OUTPATIEN 6 6 NATHANIEL T VISIT [address] - 6 6 NATHANIEL OUTPATIEN [facility] OFFICE 44978 JAYJAY NIV OUTPATIEN 6 6 NATHANIEL T VISIT 25 PHYSICIAN MINUTES S OFFICE 51067 [facility] OUTPATIEN 6 6 NATHANIEL T VISIT 25 PHYSICIAN MINUTES S OFFICE 13497 [facility] OUTPATIEN 6 6 NATHANIEL YEAR LAT T VISIT 15 PHYSICIAN MINUTES S OFFICE 17232 [facility] 5 5 NATHANIEL ALDAIR T VISIT 15 PHYSICIAN MINUTES [facility] ST - 5 5 [facility] 5 5 NATHANIEL [facility] - 4 4 N[facility] - 4 4 NATHANI[facility] - 4 4 NATHANIEL INPATIENT [facility] - 4 4 N[facility] 3 3 [facility] T OPERATIONS RESEARCH DIRECTOR OFFICE 41241 [facility] 3 3 N JORDYN N JORDYN T VISIT 15 [facility] CHILDRENS - OTHER 3 3 [facility] MEDICAL C OFFICE 45488 [facility] 3 3 NATHANIEL T VISIT 5 FT MINUTES [facility] OFFICE 92312 [facility] OUTPATIEN 3 3 T VISIT [address] - 3 3 NATHANIEL OUTPATIEN FT T [facility]OBBY OFFICE 29751 [facility] OUTPATIEN 3 3 JAM JAM T VISIT [address] - 3 3 NATHANIEL OUTPATIEN [facility] OFFICE 20805 [facility] OUT[facility] 3 3 YEAR LAT YEAR LAT T VISIT 25 MINUTES HOSPITAL CHILDRENS - OTHER 3 3 [facility] OFFICE 50175 LEANDRA MOBLEY OUTPATIEN 3 3 N JORDYN N JORDYN T VISIT [address] - 3 3 NATHANIEL OUTPATIEN FT T BOBBY OFFICE [address]1327 ST OUTPATIEN 3 3 NATHANIEL T VISIT 5 FT MINUTES [facility] ST - 3 3 NATHANIEL OUTPATIEN FT T BOBBY OFFICE 38442 LEANDRA MOBLEY OUTPATIEN 3 3 N JORDYN N JORDYN T VISIT 15 MINUTES OFFICE 14701 [facility] OUTPATIEN 3 3 OWSKI M JOSE MANUELI M T VISIT 15 MINUTES OFFICE 54203 LEANDRA MOBLEY OUTPATIEN 3 3 N JORDYN N JORDYN T VISIT 25 MINUTES OFFICE 57765 LEANDRA MOBLEY OUTPATIEN 3 3 N JORDYN N JORDYN T VISIT [address] - 3 3 NATHANIEL OUTPATIEN FT T BOBBY OFFICE 61012 [facility] 3 3 YEAR LAT YEAR LAT T NEW 30 MINUTES OFFICE 92583 LEANDRA MOBLEY OUTPATIEN 3 3 N JORDYN N JORDYN T VISIT 25 MINUTES OFFICE 23390 LEANDRA LEANDRA OUTPATIEN 3 3 N JORDYN N JORDYN T VISIT 25 MINUTES OFFICE 07525 LEANDRA MOBLEY OUTPATIEN 3 3 N JORDYN N [facility] T VISIT [address] [facility] 3 3 NATHANIEL SENTHIL ION NEW/ESTAB PHYSICIAN PATIENT S [address] - 3 3 NATHANIEL OUTPATIEN FT T BOBBY OFFICE [address]83 ST OUTPATIEN 3 3 NATHANIEL T VISIT 5 FT MINUTES [facility] OFFICE 90208 [facility] OUT[facility] 3 3 T NEW 45 MINUTES OFFICE 90673 LEANDRA MOBLEY OUTPATIEN 3 3 N JORDYN N [facility] T NEW 60 MINUTES HOSPITAL [facility] - 3 3 [facility] OUTPATIEN [facility] T OFFICE 48703 CARLENE CONCEPCION OUTPATIEN 3 3 JR. JONNY FRANCOIS DEN T VISIT 15 MINUTES OFFICE 50855 BARBRA RIDDLE 3 3 JR CHRYSTAL JARRELL T VISIT 15 MINUTES OFFICE 88313 CARLENE [facility] OUTPATIEN 3 3 JR. JONNY FRANCOIS DEN T NEW 45 MINUTES HOSPITAL [facility] - 3 3 [facility] OUTPATIEN [facility] - 3 3 [facility] OUTPATIEN [facility] - 3 3 [facility] INPATIENT INC OFFICE 47319 BARBRA RIDDLE 2 2 JR CHRYSTAL JARRELL T VISIT 15 MINUTES EMERGENCY 30771 NILSA CHAVEZ DEPT 2 2 EMERGENCY VISIT SERVICES HIGH SEVERITY& THREAT RUST [facility] - 2 2 [facility] OUTPATIEN INC T OFFICE 26621 BRODIE NIDA WHLEYDI NIDA CONSULTAT 2 2 ION NEW/ESTAB PATIENT 60 MIN OFFICE 89673 BESSON BESSON OUTPATIEN 2 2 MAURO MAURO T VISIT 25 MINUTES HOSPITAL [facility] - 2 2 [facility] OUTPATIEN INC T OFFICE 03762 [facility]ON BESSON OUTPATIEN 2 2 MAURO MAURO T VISIT 25 MINUTES HOSPITAL [place] - 2 2 [facility] OUTPATIEN INC T OFFICE 09749 [facility] OUTPATIEN 2 2 MAURO MAURO T VISIT 15 MINUTES OFFICE 40349 [facility] OUTPATIEN 2 2 MAURO MAURO T VISIT 25 MINUTES HOSPITAL [place] - 2 2 [facility] OFF[facility] 58635 BARBRA BELLE OUTPATIEN 2 2 JR CHRYSTAL JR CHRYSTAL T VISIT 15 MINUTES HOSPITAL [facility] - 2 2 [facility] OUTPATIEN [facility] [place] - 2 2 [facility] INPATIENT INC EMERGENCY 54346 HEBER BUCK DEPT 1 1 [facility] VISIT HIGH SEVERITY& THREAT RUST [place] - 1 1 [facility] INPATIENT INC EMERGENCY 43167 [place] 1 1 [facility] T VISIT [facility]OW/MODER SEVERITY [facility] - 1 1 [facility] T EMERGENCY 02679 NILSA SILVERIO DEPT 1 1 EMERGENCY III CHRYSTAL VISIT SERVICES HIGH SEVERITY& THREAT RUST ST - 1 1 [facility] 31806 EMERGENCY JEAN-CLAUDE DEPT 1 1 CARE CESAR VISIT PHYS HIGH NORTHERN SEVERITY& THREAT RUST ST - 1 1 [place] OUTPATIEN FT T [facility] EMERGENCY [address]63 ST DEPT 1 1 NATHANIEL VISIT FT HIGH BOBBY SEVERITY& THREAT FUNJ OFFICE [address] [facility] OUTPATIEN 1 1 NATHANIEL NIDA T VISIT 25 PHYSICIAN MINUTES S EMERGENCY 17160 EMERGENCY JUAN ANTONIO DEPT 1 1 CARE MARCIN VISIT PHYS HIGH NORTHERN SEVERITY& THREAT FUN OFFICE [address] [facility] OUTPATIEN 0 0 NATHANIEL ALDEN T VISIT 25 PHYSICIAN MINUTES S OFFICE [address] [facility] OUTPATIEN 0 0 NATHANIEL ALDEN T VISIT 15 PHYSICIAN MINUTES S OFFICE 85124 MOJGAN HERRMANNPATIEN 0 0 NATHANIEL ALDEN T VISIT 25 PHYSICIAN MINUTES S OFFICE 58156 [facility] MINUTES OFFICE 83217 PATIENT VENKATESH LACEY 9 9 [facility] T VISIT PHYS 25 MINUTES [facility] [place] [address] H[facility]PITAL INPATIENT [facility] EMERGENCY 90260 EMERGENCY MELO, DEPT 9 9 CARE AGUILAR U VISIT PHYS HIGH [place] SE[place]& [place] [facility] OFFICE 88397 PATIENT VENKATESH LACEY 9 9 [facility] [place] T VISIT PHYS 25 MINUTES EMERGENCY 50714 EMERGENCY SEJAL, DEPT 9 9 CARE ERNST VISIT PHYS HIGH [place] SE[place]& [place] [facility] EMERGENCY 33235 EMERGENCY JUAN ANTONIO, DEPT 9 9 CARE MIMI D VISIT PHYS HIGH [place] SE[place]& [place] TH[place] [facility] [place] - 9 9 [facility] OUTPATIEN [facility] [place] - 9 9 [facility] INPATIENT [facility] EMERGENCY 00841 NILSA BUCK, DEPT 9 9 EMERGENCY CASSANDRA S VISIT SERVICES HIGH SEVERITY& ASSOCIATE THREAT S [facility] EMERGENCY 93757 NILSA BUCK, DEPT 9 9 EMERGENCY CASSANDRA S VISIT SERVICES HIGH SEVERITY& ASSOCIATE THREAT S [facility] [place] - 9 9 [facility] INPATIENT INC OFFICE 06981 GHADA SPEARSILLO OUTPATIEN 9 9 Jamee SANTOYO JR, J V T VISIT 15 MINUTES OFFICE 90984 [facility] Jamee SANTOYO JR, J V T VISIT 15 MINUTES HOSPITAL [place] - 9 9 [facility] T EMERGENCY 93261 CAMILO MERCADO, DEPT 9 9 NATIONAL KRYSTAL VISIT CORPORATI O HIGH ON SEVERITY& THREAT [facility] EMERGENCY 48741 [place] 9 9 [facility] DEPARTMEN INC T VISIT MODERATE SEVERITY HOSPITAL [place] - 8 8 [facility] EMERGENCY 28724 [place] 8 8 [facility] T VISIT HIGH/URGE NT SEVERITY HOSPITAL [place] - 8 8 [facility] INPATIENT [facility] EMERGENCY [address] [place] [address] 8 [facility] VISIT HIGH/URGE NT SEVERITY HOSPITAL [place] [address] 8 [facility] EMERGENCY 53815 EMERGENCY [place]OR[place] DEPT 8 8 [facility]ARE [facility] L VISIT PHYS HIGH [place]& [place] [facility] EMERGENCY 67264 EMERGENCY TYRELL DEPT 8 8 CARE CASSANDRA VISIT PHYS HIGH [place]& [place] [facility] EMERGENCY 18737 EMERGENCY MORALES, DEPT 8 8 CARE RADAMES L VISIT PHYS HIGH [place]& [place] [address] 8 [facility] 98272 [facility] 8 HOSPITAL VISIT EAST HIGH SEVERITY& THREAT FUN OFFICE 87314 PATIENT KLAUDIA MOJGANMANINDER 8 8 FIRST CASSANDRA Mojica MG 45 PHYS MINUTES EMERGENCY 02949 [place] 8 8 [facility] T VISIT MODERATE SEVERITY HOSPITAL [place] - 8 8 [facility] 00549 KEYNATTA ZARATE, 8 8 [facility] T VISIT PROF KEN LOW/MODER SEVERITY HOSPITAL [place] - 8 8 [facility] [address]405 [place] 8 8 [facility] T VISIT [facility]/M INOR [facility] [place] - 8 8 [facility] INPATIENT [facility] [place] - 8 8 [facility] INPATIENT [facility]
--- OUTSIDE RECORDS SUMMARY | 2017-03-12 12:01 | External Medical Summary Rpt ---
Author Author RYAN Bedolla, [employer] Organization [employer] Address Unknown Phone Unavailable
--- OUTSIDE RECORDS SUMMARY | 2017-03-12 12:01 | External Medical Summary Rpt ---
Demographics Preferred Language Afghan Marital Status Unknown Faith Affiliation Unknown Race Unknown Ethnic Group Unknown Author Author RYAN Address Unknown Phone Immunization No patient found.
--- OUTSIDE RECORDS SUMMARY | 2017-03-12 12:01 | External Medical Summary Rpt ---
Demographics Preferred Language Burundian Marital Status Unknown Jewish Affiliation Unknown Race Unknown Ethnic Group Unknown Author Author RYAN Address Unknown Phone Immunization No patient found.
[2017-03-12 12:05] LABS: ALLEN'S TEST ACCEPTABLE; ARTERIAL ABE 0.2 MMOL/L (-2.4-+2.3); ARTERIAL TCO2 26.3 MMOL/L (23-27); OXYGEN 32%
--- NOTE | 2017-03-12 12:30 | RADIOLOGY REPORT PS360 ---
CHEST-PORTABLE HISTORY: CP; SOA ORDERING PHYSICIAN: Rosette Beckman MD PATIENT AGE: 66 years COMPARISON: 03/10/2017 FINDINGS: The cardiomediastinal silhouette and pulmonary vascularity are within normal limits. Chronic changes once again noted in the left suprahilar region. Old granulomatous disease. No lobar consolidation or collapse. No acute bony abnormalities. IMPRESSION: Chronic changes in the left suprahilar region. No change with no acute finding
--- OUTSIDE RECORDS SUMMARY | 2017-03-12 13:01 | External Medical Summary Rpt ---
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 20 EN 25 60 10 10 S BR 0- 0 #1 IA 50 14 N 95 DI # SK US 11 49 5 00 07 08 0 45 11 KS 14 SC Ac 59 -0 -1 .0 LG 82 [facility] ti 10 8- 7- 00 RE 22 CK ve 34 20 20 EN 4 90 10 10 S BR 5 #4 IA 28 N 4 # 42 84 AD 00 02 07 5 60 30 KS 14 SC Ac VA 17 -0 -2 .0 LG 45 [facility] ti IR 30 1- 4- 00 RE 35 CK ve 69 20 20 EN 2 25 60 10 10 S BR 0- 0 #4 IA 50 28 N 4 DI # SK 42 US 84 59 02 07 5 8. 30 KS 14 SC Ac 31 -0 -2 50 LG 45 [facility] ti 00 1- 4- 0 RE 35 CK ve 57 20 20 EN 4 92 10 10 S BR 0 #4 IA 28 N 4 # 42 84 00 07 07 2 45 11 KS 14 SC Ac 59 -0 -0 .0 LG 25 [facility] ti 10 8- 8- 00 RE 20 CK ve 34 20 20 EN 90 10 10 S BR 5 #1 IA 14 N 95 # 11 49 5 BU 00 07 07 2 20 3 KS 14 SC Ac TA 60 -0 -0 .0 LG 25 [facility] ti LB 32 8- 8- 00 RE 24 CK ve -A 54 20 20 EN CE 42 10 10 S BR TA 8 #1 IA WI 14 N N- 95 CA # FF 11 50 49 -3 5 25 -4 0 TH 50 06 07 5 30 30 KS 14 SC Ac EO 11 -1 -0 .0 LG 74 [facility] ti PH 10 8- 2- 00 RE 25 CK ve YL 48 20 20 EN 6 LI 20 10 10 S BR NE 2 #4 IA 28 N ER 4 # 20 42 0 84 MG TA BL ET 53 06 06 0 12 12 KS 14 SC Ac 01 -1 -1 0. LG 71 [facility] ti 40 8- 9- 00 RE 98 CK ve 54 20 20 0 EN 0 86 10 10 S BR 7 #4 IA 28 N 4 # 42 84 AL 00 06 06 5 30 25 KS 14 SC Ac BU 48 -1 -1 0. LG 71 [facility] ti TE 79 8- 9- 00 RE 98 CK ve RO 50 20 20 0 EN 2 L 12 10 10 S BR ALEJANDRO 5 #4 IA L 28 N 2. 4 5 # MG 42 /3 84 ML SO LN 00 06 06 0 20 10 KS 14 SC Ac 14 -1 -1 .0 LG 71 [facility] ti 31 8- 9- 00 RE 98 CK ve 47 20 20 EN 3 31 10 10 S BR 0 #4 IA 28 N 4 # 42 84 AD 00 06 06 5 60 30 KS 14 SC Ac VA 17 -1 -1 .0 LG 71 [facility] ti IR 30 8- 9- 00 RE 98 CK ve 69 20 20 EN 7 25 60 10 10 S BR 0- 0 #4 IA 50 28 N 4 DI # SK 42 US 84 59 02 06 5 8. 30 KS 14 SC Ac 31 -0 -1 50 LG 45 [facility] ti 00 1- 6- 0 RE 35 CK ve 57 20 20 EN 4 92 10 10 S BR 0 #4 IA 28 N 4 # 42 84 TH 50 03 05 3 60 30 KS 14 SC Ac EO 11 -1 -2 .0 LG 54 [facility] ti PH 10 7- 7- 00 RE 29 CK ve YL 48 20 20 EN 4 LI 20 10 10 S BR NE 2 #4 IA 28 N ER 4 # 20 42 0 84 MG TA BL ET BU 00 04 05 1 20 4 KS 14 SC Ac TA 60 -2 -2 .0 LG 67 [facility] ti LB 32 7- 7- 00 RE 78 CK ve -A 54 20 20 EN 8 CE 42 10 10 S BR TA 8 #4 IA WI 28 N N- 4 CA # FF 42 84 50 -3 25 -4 0 00 12 05 2 45 30 KS 14 SC Ac 59 -1 -2 .0 LG 54 [facility] ti 10 5- 2- 00 RE 37 CK ve 34 20 20 EN 6 90 09 10 S BR 5 #4 IA 28 N 4 # 42 84 59 02 05 5 8. 30 KS 14 SC Ac 31 -0 -1 50 LG 45 [facility] ti 00 1- 8- 0 RE 35 CK ve 57 20 20 EN 4 92 10 10 S BR 0 #4 IA 28 N 4 # 42 84 TH 50 03 04 3 60 30 KS 14 SC Ac EO 11 -1 -2 .0 LG 54 [facility] ti PH 10 7- 7- 00 RE 29 CK ve YL 48 20 20 EN 4 LI 20 10 10 S BR NE 2 #4 IA 28 N ER 4 # 20 42 0 84 MG TA BL ET BU 00 04 04 0 20 3 KS 14 SC Ac TA 60 -1 -2 .0 LG 62 [facility] ti LB 32 3- 7- 00 RE 01 CK ve -A 54 20 20 EN 5 CE 42 10 10 S BR TA 8 #4 IA WI 28 N N- 4 CA # FF 42 84 50 -3 25 -4 0 BU 00 04 04 0 20 3 KS 13 SC Ac TA 60 -1 -1 .0 LG 14 [facility] ti LB 32 2- 2- 00 RE 92 CK ve -A 54 20 20 EN CE 42 10 10 S BR TA 8 #1 IA WI 14 N N- 95 CA # FF 11 50 49 -3 5 25 -4 0 AD 00 02 04 5 60 30 KS 14 SC Ac VA 17 -0 -0 .0 LG 45 [facility] ti IR 30 1- 7- 00 RE 35 CK ve 69 20 20 EN 2 25 60 10 10 S BR 0- 0 #4 IA 50 28 N 4 DI # SK 42 US 84 59 02 04 5 8. 25 KS 14 SC Ac 31 -0 -0 50 LG 45 [facility] ti 00 1- 7- 0 RE 35 CK ve 57 20 20 EN 4 92 10 10 S BR 0 #4 IA 28 N 4 # 42 84 ME 68 02 03 2 30 30 KS 14 SC Ac LO 18 -1 -2 .0 LG 49 [facility] ti XI 00 0- 3- 00 RE 16 CK ve CA 50 20 20 EN 0 M 20 10 10 S BR 15 3 #4 IA 28 N MG 4 # TA 42 BL 84 ET 61 03 03 2 5. 25 KS 14 HO Ac 31 -1 -1 00 LG 54 LL ti 40 8- 8- 0 RE 49 AN ve 01 20 20 EN 2 D 80 10 10 S ED 5 #[address] 4 J # 42 84 59 02 03 5 8. 30 KS 14 SC Ac 31 -0 -1 50 [...] 84 61 03 03 2 5. 32 KS 14 HO Ac 31 -0 -0 00 LG 51 LL ti 40 1- 1- 0 RE 03 AN ve 01 20 20 EN 6 D 80 10 10 S ED 5 #[address] 4 J # 42 84 00 03 03 1 3. 14 KS 14 HO Ac GA 06 -0 -0 00 LG 51 LL ti MO 54 1- 1- 0 RE 03 AN ve X 01 20 20 EN 8 D 0. 30 10 10 S ED 5% 3 #[address] EY 4 J E # DR 42 OP 84 S 00 02 02 00 3. 14 KS 14 HO Ac GA 06 -1 -2 00 LG 48 LL ti MO 54 5- 6- 0 RE 28 AN ve X 01 20 20 EN 1 D 0. 30 10 10 ED 5% 3 #[address] EY [address] OP S ME 68 02 02 00 30 30 KS 14 SC Ac LO 18 -1 -2 .0 LG 49 [facility] ti XI 00 0- 6- 00 RE 16 CK ve CA 50 20 20 EN 0 M 20 10 10 BR 15 3 #4 IA 28 N MG 4 TA BL ET 00 12 02 02 45 30 WA 14 SC Ac 59 -1 -2 .0 LG 34 [facility] ti 10 5- 6- 00 RE 49 CK ve 34 20 20 EN 9 90 09 10 BR 5 #4 IA 28 N 4 AD 00 02 02 00 60 30 WA 14 SC Ac VA 17 -0 -1 .0 LG 45 [facility] ti IR 30 1- 1- 00 RE 35 CK ve 69 20 20 EN 2 25 60 10 10 BR 0- 0 #4 IA 50 28 N 4 DI SK US 59 02 02 00 8. 30 WA 14 SC Ac 31 -0 -1 50 LG 45 [facility] ti 00 1- 1- 0 RE 35 CK ve 57 20 20 EN 4 92 10 10 BR 0 #4 IA 28 N 4 SE 59 01 02 01 15 30 WA 14 SC Ac RT 76 -1 -1 .0 LG 40 [facility] ti RA 24 1- 1- 00 RE 01 CK ve LI 91 20 20 EN 5 NE 00 10 10 BR 5 #4 IA HC 28 N L 4 10 0 MG TA BL ET 00 01 02 00 3. 7 WA 14 HO Ac GA 06 -2 -1 00 LG 44 LL ti MO 54 7- 1- 0 RE 00 AN ve X 01 20 20 EN 6 D 0. 30 10 10 ED 5% 3 #[address] EY [address] OP S 61 01 02 00 5. 31 KS 14 HO Ac 31 -2 -1 00 LG 44 LL ti 40 7- 1- 0 RE 00 AN ve 01 20 20 EN 4 D 80 10 10 ED 5 #[address] 4 J AD 00 10 01 01 60 30 KS 14 KA Ac VA 17 -1 -2 .0 LG 21 LF ti IR 30 3- 8- 00 RE 44 ve 69 20 20 EN 3 25 60 09 10 WI 0- 0 #4 NA 50 28 C 4 DI SK US 00 12 01 01 45 30 KS 14 SC Ac 59 -1 -2 .0 LG 34 [facility] ti 10 5- 8- 00 RE 49 CK ve 34 20 20 EN 9 90 09 10 BR 5 #4 IA 28 N 4 SE 59 01 01 00 15 30 KS 14 SC Ac RT 76 -1 -2 .0 LG 40 [facility] ti RA 24 1- 8- 00 RE 01 CK ve LI 91 20 20 EN 5 NE 00 10 10 BR 5 #4 IA HC 28 N L 4 10 0 MG TA BL ET 59 10 01 03 8. 16 KS 14 SC Ac 31 -2 -2 50 LG 23 [facility] ti 00 0- 8- 0 RE 42 CK ve 57 20 20 EN 5 92 09 10 BR 0 #4 IA 28 N 4 59 10 12 02 8. 16 KS 14 SC Ac 31 -2 -3 50 LG 23 [place] ti 00 0- 1- 0 RE 42 CK ve 57 20 20 EN 5 92 09 09 BR 0 #4 IA 28 N 4 00 12 12 00 45 30 WA 14 SC Ac 59 -1 -3 .0 LG 34 [facility] ti 10 5- 1- 00 RE 49 CK ve 34 20 20 EN 9 90 09 09 BR 5 #4 IA 28 N 4 XO 63 10 12 01 72 30 WA 14 KA Ac PE 40 -1 -1 .0 LG 21 LF ti NE 20 3- 7- 00 RE 44 ve X 51 20 20 EN 1 1. 32 09 09 WI 25 4 #4 NA 28 C MG 4 /3 ML SO JOANN TI ON SE 59 10 12 01 15 30 WA 14 KA Ac RT 76 -1 -1 .0 LG 21 LF ti RA 24 3- 7- 00 RE 46 ve LI 91 20 20 EN 0 NE 00 09 09 WI 5 #4 NA HC 28 C L 4 10 0 MG TA BL ET TH 50 10 12 01 60 30 WA 14 KA Ac EO 11 -1 -1 .0 LG 21 LF ti PH 10 3- 7- 00 RE 44 ve YL 48 20 20 EN 6 LI 20 09 09 WI NE 2 #4 NA 28 C ER 4 20 0 MG TA BL ET NA 68 10 12 01 60 30 WA 14 KA Ac WI 46 -1 -1 .0 LG 21 LF ti OX 20 3- 7- 00 RE 44 ve EN 19 20 20 EN 4 00 09 09 WI 50 5 #4 NA 0 28 C MG 4 TA BL ET WI 00 12 12 00 30 12 WA 14 SC Ac ED 59 -0 -1 .0 LG 32 [facility] ti NI 15 6- 7- 00 RE 45 FE ve SO 44 20 20 EN 0 R NE 20 09 09 WI 5 #4 CH 10 28 AE 4 L MG G TA BL ET AL 00 12 12 00 36 30 WA 14 SC Ac BU 48 -0 -1 0. LG 32 [facility] ti TE 79 6- 7- 00 RE 44 FE ve RO 50 20 20 0 EN 5 R L 16 09 09 WI ALEJANDRO 0 #4 CH L 28 AE 2. 4 L 5 G MG /3 ML SO LN 00 12 12 00 14 25 WA 14 SC Ac 59 -0 -1 .6 LG 32 [facility] ti 70 6- 7- 99 RE 44 FE ve 01 20 20 EN 9 R 31 09 09 WI 4 #4 CH 28 AE 4 L G AV 00 12 12 00 7. 7 WA 14 SC Ac EL 08 -0 -1 00 LG 32 [facility] ti OX 51 6- 7- 0 RE 44 FE ve 73 20 20 EN 7 R 40 30 09 09 WI 0 1 #4 CH MG 28 AE 4 L TA G BL ET 00 12 12 00 60 30 WA 14 SC Ac 18 -0 -1 .0 LG 32 [facility] ti 24 6- 7- 00 RE 44 FE ve 03 20 20 EN 6 R 01 09 09 WI 0 #4 CH 28 AE 4 L G IP 00 12 12 00 30 30 WA 14 SC Ac RA 48 -0 -1 0. LG 32 [facility] ti TR 79 6- 7- 00 RE 45 FE ve OP 80 20 20 0 EN 1 R IU 16 09 09 WI M 0 #4 CH BR 28 AE 4 L 0. G 02 % SO LN WI 00 10 12 01 12 3 WA 14 SC Ac OM 60 -2 -0 0. LG 23 [facility] ti ET 31 0- 3- 00 RE 42 CK ve [facility] 58 20 20 0 EN 8 ZI 85 09 09 BR NE 8 #4 IA 28 N VC 4 -C OD EI NE SY RU P 59 10 12 01 8. 16 KS 14 SC Ac 31 -2 -0 50 LG 23 [facility] ti 00 0- 3- 0 RE 42 CK ve 57 20 20 EN 5 92 09 09 BR 0 #4 IA 28 N 4 59 10 11 00 8. 16 KS 14 SC Ac 31 -2 -0 50 LG 23 [place] ti 00 0- 5- 0 RE 42 CK ve 57 20 20 EN 5 92 09 09 BR 0 #4 IA 28 N 4 WI 00 10 11 00 12 3 WA 14 KA Ac OM 60 -2 -0 0. LG 23 LF ti ET 31 0- 5- 00 RE 42 ve [facility] 58 20 20 0 EN 8 ZI 85 09 09 WI NE 8 #4 NA 28 C VC 4 -C OD EI NE SY RU P IP 00 10 10 00 30 30 WA 14 KA Ac RA 48 -1 -2 0. LG 21 LF ti TR 79 3- 2- 00 RE 43 ve OP 80 20 20 0 EN 9 IU 16 09 09 WI M 0 #4 NA BR 28 C 4 0. 02 % SO LN WI 00 10 10 00 40 12 WA 14 KA Ac ED 59 -1 -2 .0 LG 21 LF ti NI 15 3- 2- 00 RE 45 ve SO 44 20 20 EN 3 NE 20 09 09 WI 5 #4 NA 10 28 C 4 MG TA BL ET TH 50 10 10 00 60 30 WA 14 KA Ac EO 11 -1 -2 .0 LG 21 LF ti PH 10 3- 2- 00 RE 44 ve YL 48 20 20 EN 6 LI 20 09 09 WI NE 2 #4 NA 28 C ER 4 20 0 MG TA BL ET SE 59 10 10 00 15 30 WA 14 KA Ac RT 76 -1 -2 .0 LG 21 LF ti RA 24 3- 2- 00 RE 46 ve LI 91 20 20 EN 0 NE 00 09 09 WI 5 #4 NA HC 28 C L 4 10 0 MG TA BL ET NA 68 10 10 00 60 30 WA 14 KA Ac WI 46 -1 -2 .0 LG 21 LF ti OX 20 3- 2- 00 RE 44 ve EN 19 20 20 EN 4 00 09 09 WI 50 5 #4 NA 0 28 C MG 4 TA BL ET XO 63 10 10 00 72 30 WA 14 KA Ac PE 40 -1 -2 .0 LG 21 LF ti NE 20 3- 2- 00 RE 44 ve X 51 20 20 EN 1 1. 32 09 09 WI 25 4 #4 NA 28 C MG 4 /3 ML SO JOANN TI ON AD 00 10 10 00 60 30 WA 14 KA Ac VA 17 -1 -2 .0 LG 21 LF ti IR 30 3- 2- 00 RE 44 ve 69 20 20 EN 3 25 60 09 09 WI 0- 0 #4 NA 50 28 C 4 DI SK US 00 10 10 00 30 7 WA 14 KA Ac 59 -1 -2 .0 LG 21 LF ti 10 3- 2- 00 RE 44 ve 34 20 20 EN 5 90 09 09 WI 5 #4 NA 28 C 4 AV 00 10 10 00 3. 3 WA 14 KA Ac EL 08 -1 -2 00 LG 21 LF ti OX 51 3- 2- 0 RE 43 ve 73 20 20 EN 4 40 30 09 09 WI 0 1 #4 NA MG 28 C 4 TA BL ET SE 59 09 09 00 15 30 WA 14 KA Ac RT 76 -0 -2 .0 LG 14 LF ti RA 24 9- 4- 00 RE 27 ve LI 91 20 20 EN 4 NE 00 09 09 WI 5 #4 NA HC 28 C L 4 10 0 MG TA BL ET 00 09 09 00 30 7 WA 14 KA Ac 59 -0 -2 .0 LG 14 LF ti 10 9- 4- 00 RE 26 ve 34 20 20 EN 8 90 09 09 WI 5 #4 NA 28 C 4 WI 00 09 09 00 12 3 WA 14 KA Ac OM 60 -0 -2 0. LG 14 LF ti ET 31 9- 4- 00 RE 27 ve [facility] 58 20 20 0 EN 0 ZI 85 09 09 WI NE 8 #4 NA 28 C VC 4 -C OD EI NE SY RU P WI 00 09 09 00 20 15 WA 14 KA Ac ED 59 -0 -2 .0 LG 14 LF ti NI 15 9- 4- 00 RE 26 ve SO 44 20 20 EN 7 NE 30 09 09 WI 5 #4 NA 20 28 C 4 MG TA BL ET NA 68 09 09 00 60 30 WA 14 KA Ac WI 46 -0 -2 .0 LG 14 LF ti OX 20 9- 4- 00 RE 27 ve EN 19 20 20 EN 3 00 09 09 WI 50 5 #4 NA 0 28 C MG 4 TA BL ET 59 09 09 00 8. 16 WA 14 KA Ac 31 -0 -2 50 LG 14 LF ti 00 9- 4- 0 RE 27 ve 57 20 20 EN 2 92 09 09 WI 0 #4 NA 28 C 4 AD 00 09 09 00 60 30 WA 14 KA Ac VA 17 -0 -2 .0 LG 14 LF ti IR 30 9- 4- 00 RE 27 ve 69 20 20 EN 1 25 60 09 09 WI 0- 0 #4 NA 50 28 C 4 DI SK US WI 00 08 08 00 30 30 CL 19 CA Ac AV 09 -2 -[address] ti 37 1- 7- 00 IC 71 IL ve TA 20 20 20 LO TI 29 09 09 PH N 8 AR JR SO MA J DI CY V UM 40 MG TA B WI 00 08 08 00 6. 25 CL [...] 00 30 15 CL 19 CA Ac WI 74 -0 -[address] [...] V DI #3 SK 93 US 8 WI 00 09 07 06 6. 25 RI 76 SC Ac OV 08 -1 -3 70 TE 48 [facility] ti EN 51 9- 0- 0 64 FE ve TI 13 20 20 AI R L 20 08 09 D WI HF 1 PH CH A AR AE [...] 31 7- 6- 00 81 IL ve WI 04 20 20 AI LO N 80 09 09 D HC 1 PH JR L AR J 50 M V 0 #3 MG 93 8 TA BL ET WI 00 09 07 05 6. 25 RI 76 SC Ac OV 08 -1 -0 70 TE 48 [facility] ti EN 51 9- 2- 0 64 FE ve TI 13 20 20 AI R L 20 08 09 D WI HF 1 PH CH A AR AE 90 M L #3 G MC 93 G 8 IN [place] LE R WI 00 09 06 04 6. 25 RI 76 SC Ac OV 08 -1 -0 70 TE 48 [facility] ti EN 51 9- 4- 0 64 FE ve TI 13 20 20 AI R L 20 08 09 D WI HF 1 PH CH A AR AE 90 M L #3 G MC 93 G 8 IN [facility] LE R AD 00 07 06 04 60 30 RI 76 SC Ac VA 17 -0 -0 .0 TE 48 [facility] ti IR 30 7- 4- 00 63 FE ve 69 20 20 AI R 25 60 08 09 D WI 0- 0 PH CH 50 AR AE M L DI #3 G SK 93 US 8 AD 00 07 05 03 60 30 RI 76 SC Ac VA 17 -0 -2 .0 TE 48 [facility] ti IR 30 7- 1- 00 63 FE ve 69 20 20 AI R 25 60 08 09 D WI 0- 0 PH CH 50 AR AE M L DI #3 G SK 93 US 8 WI 00 09 05 03 6. 25 RI 76 SC Ac OV 08 -1 -2 70 TE 48 [facility] ti EN 51 9- 1- 0 64 FE ve TI 13 20 20 AI R L 20 08 09 D WI HF 1 PH CH A AR AE 90 M L #3 G MC 93 G 8 IN [facility] LE R AZ 59 05 05 00 6. 5 [...] 34 9- 1- 00 42 S ve WI [address] ED 31 [...] AI R 25 60 08 09 D WI 0- 0 PH CH 50 AR AE M L DI #3 G SK 93 US 8 WI 00 09 04 02 6. 25 RI 76 SC Ac OV 08 -1 -0 70 TE 48 [facility] ti EN 51 9- 9- 0 64 FE ve TI 13 20 20 AI R L 20 08 09 D WI HF 1 PH CH A AR AE [...] AI R 25 60 08 09 D WI 0- 0 PH CH 50 AR AE M L DI #3 G SK 93 US 8 WI 00 09 02 01 6. 25 RI 76 SC Ac OV 08 -1 -1 70 TE 48 [facility] ti EN 51 9- 2- 0 64 FE ve TI 13 20 20 AI R L 20 08 09 D WI HF 1 PH CH A AR AE [...] 34 6- 2- 00 76 N ve WI 59 20 20 AI BA ED 31 [...] #3 O 93 TA 8 BL ET WI 00 09 01 00 6. 25 RI 76 SC Ac OV 08 -1 -1 70 TE 48 [facility] ti EN 51 9- 5- 0 64 FE ve TI 13 20 20 AI R L 20 08 09 D WI HF 1 PH CH A AR AE 90 M L #3 G MC 93 G 8 IN [facility] LE R AD 00 07 01 00 60 30 RI 76 SC Ac VA 17 -0 -1 .0 TE 48 [facility] ti IR 30 7- 5- 00 63 FE ve 69 20 20 AI R 25 60 08 09 D WI 0- 0 PH CH 50 AR AE [...] AR R 25 60 08 08 MA WI 0- 0 CY CH 50 AE #5 L DI 43 G SK 7 US WI 00 09 10 01 6. 25 CV 46 SC Ac OV 08 -1 -2 70 S 94 [facility] ti EN 51 9- 3- 0 PH 78 FE ve TI 13 20 20 AR R L 20 08 08 MA WI HF 1 CY CH A AE 90 #5 L 43 G MC 7 G IN [place] LE R WI 00 09 09 00 63 18 CV 46 SC Ac ED 59 -1 -2 .0 S 94 [facility] ti NI 15 9- 6- 00 PH 76 FE ve SO 44 20 20 AR R NE 20 08 08 MA WI 1 CY CH 10 AE #5 L MG 43 G 7 TA BL ET AV 00 09 09 00 7. 7 CV 46 SC Ac EL 08 -1 -2 00 S 94 [facility] ti OX 51 9- 6- 0 PH 75 FE ve 73 20 20 AR R 40 30 08 08 MA WI 0 1 CY CH MG AE #5 L TA 43 G BL 7 ET 49 09 09 00 25 25 CV 46 SC Ac 50 -1 -2 0. S 94 [facility] ti 20 9- 6- 00 PH 77 FE ve 68 20 20 0 AR R 52 08 08 MA WI 6 CY CH AE #5 L 43 G 7 WI 00 09 09 00 6. 25 CV 46 SC Ac OV 08 -1 -2 70 S 94 [facility] ti EN 51 9- 6- 0 PH 78 FE ve TI 13 20 20 AR R L 20 08 08 MA WI HF 1 CY CH A AE 90 #5 L 43 G MC 7 G IN [facility] LE R 17 07 09 03 17 20 CV 46 SC Ac 27 -0 -1 .0 S 25 [facility] ti 00 7- 1- 00 PH 86 FE ve 72 20 20 AR R 10 08 08 MA WI 1 CY CH AE #5 L 43 G 7 TR 60 07 08 01 30 30 CV 46 SC Ac AZ 50 -0 -1 .0 S 25 [facility] ti OD 52 7- 4- 00 PH 88 FE ve ON 65 20 20 AR R E 30 08 08 MA WI 50 1 CY CH AE MG #5 L 43 G TA 7 BL ET AD 00 07 08 01 60 30 CV 46 SC Ac VA 17 -0 -1 .0 S 25 [facility] ti IR 30 7- 4- 00 PH 87 FE ve 69 20 20 AR R 25 60 08 08 MA WI 0- 0 CY CH 50 AE #5 L DI 43 G SK 7 US 17 07 08 02 17 20 CV 46 SC Ac 27 -0 -1 .0 S 25 [facility] ti 00 7- 4- 00 PH 86 FE ve 72 20 20 AR R 10 08 08 MA WI 1 CY CH AE #5 L 43 G 7 NI 00 07 08 00 30 30 CV 46 SC Ac 07 -3 -1 .0 S 46 [facility] ti PA 43 1- 4- 00 PH 70 FE ve N 07 20 20 AR R ER 49 08 08 MA WI 0 CY CH 50 AE 0 #5 L MG 43 G 7 TA BL ET 17 07 08 01 17 20 CV 46 SC Ac 27 -0 -0 .0 S 25 [facility] ti 00 7- 1- 00 PH 86 FE ve 72 20 20 AR R 10 08 08 MA WI 1 CY CH AE #5 L 43 G 7 17 07 07 00 17 20 CV 46 SC Ac 27 -0 -1 .0 S 25 [facility] ti 00 7- 7- 00 PH 86 FE ve 72 20 20 AR R 10 08 08 MA WI 1 CY CH AE #5 L 43 G 7 TR 60 07 07 00 30 30 CV 46 SC Ac AZ 50 -0 -1 .0 S 25 [facility] ti OD 52 7- 7- 00 PH 88 FE ve ON 65 20 20 AR R E 30 08 08 MA WI 50 1 CY CH AE MG #5 L 43 G TA 7 BL ET AD 00 07 07 00 60 30 CV 46 SC Ac VA 17 -0 -1 .0 S 25 [facility] ti IR 30 7- 7- 00 PH 87 FE ve 69 20 20 AR R 25 60 08 08 MA WI 0- 0 CY CH 50 AE #5 L DI 43 G SK 7 US ME 00 07 07 00 21 6 CV 46 GA Ac TH 78 -0 -1 .0 S 20 IN ti YL 15 1- 7- 00 PH 27 EY ve WI 02 20 20 AR ED 20 08 08 MA WI NI 7 CY CH SO AE LO [...] 1 CY bl e #5 43 7 WI 00 01 03 00 30 13 CV [...] 4- 6- 00 IC 80 Av ve WI 00 20 20 ai ED 10 08 [...] la 1 AR bl MA e CY LY 00 11 03 01 60 30 [...] 152.40 cm Respiratory 24 /min Rate Weight 172 [lb_av] Measured Weight 78.019 kg Measured 08-31-2012 11:45 Name Value Interpretat Reference [...] 013 mmoL/L .0 ed Cnc 06:45 Calcium 02-07-2 9.0 8.5-10. complet 013 mg/dL 1 ed SerPl-m 06:45 Cnc CBC with AUTO DIFF (09-08-2012 06:45) WBC # 02-07-2 7.3 4.8-10. complet Bld 013 K/MM3 8 ed Auto 06:45 RBC # 02-07-2 4.11 4.2-5.4 complet Bld 013 M/mm3 ed Auto 06:45 Hgb -07-2 11.7 12.2-16 complet Bld-mCn 013 g/dL .2 ed c 06:45 Hct Fr 09-08-2 34.9 % 37.0-47 complet Bld 013 .0 ed 06:45 MCV RBC 07-2 85.0 fl 82.2-97 complet 013 .8 ed 06:45 MCH RBC 07-2 28.4 pg 27-31.2 complet Qn 013 ed Auto 06:45 MEAN 09-08-2 33.4 31.8-35 complet CORPUSC 013 g/dl .4 ed ULAR 06:45 HGB CONC RDW RBC 07-2 13.8 % 11.5-17 complet Auto 013 .5 ed 06:45 Platele -07-2 158 142-424 complet t Bld 013 K/mm3 ed Ql 06:45 Manual MEAN 2 8.4 fl 7.4-10. complet PLATELE 013 4 ed T 06:45 VOLUME Granulo -07-2 69.2 % 37.0-80 complet cytes 013 .0 ed Fr Bld 06:45 Auto LYMPH % -07-2 21.6 % 10-50.0 complet 013 ed 06:45 Monocyt -07-2 5.0 % 1.7-9.3 complet es Fr 013 ed Bld 06:45 Auto Eosinop -07-2 4.0 % 0.1-12. complet hil Fr 013 0 ed Bld 06:45 Auto Basophi -07-2 0.2 % 0.1-2.0 complet ls Fr 013 ed Bld 06:45 Auto Granulo 02-07-2 5.0 1.8-7.8 complet cytes # 013 K/mm3 ed Bld 06:45 Auto Lymphoc -07-2 1.6 0.7-4.5 complet ytes Fr 013 K/mm3 ed Bld 06:45 Auto Monocyt 02-07-2 0.4 0.1-1.0 complet es # 013 K/mm3 ed Bld 06:45 Auto Eosinop 07-2 0.3 0.0-0.4 complet hil # 013 K/mm3 ed Bld 06:45 Auto Basophi 07-2 0.0 0-0.2 complet ls # 013 K/MM3 ed Bld 06:45 Auto CBC with AUTO DIFF (09-01-2012 06:38) WBC # -31-2 4.9 4.8-10. complet Bld 013 K/MM3 8 ed Auto 06:38 RBC # 09-01-2 4.14 4.2-5.4 complet Bld 013 M/mm3 ed Auto 06:38 Hgb 11.8 12.2-16 complet Bld-mCn 013 g/dL .2 ed c 06:38 Hct Fr 34.9 % 37.0-47 complet Bld 013 .0 ed 06:38 MCV RBC 84.4 fl 82.2-97 complet 013 .8 ed 06:38 MCH RBC 28.5 pg 27-31.2 complet Qn 013 ed Auto 06:38 MEAN 33.7 31.8-35 complet CORPUSC 013 g/dl .4 ed ULAR 06:38 HGB CONC RDW RBC 09-01- 14.0 % 11.5-17 complet Auto 013 .5 ed 06:38 Platele 09-01-2 216 142-424 complet t Bld 013 K/mm3 ed Ql 06:38 Manual MEAN 8.4 fl 7.4-10. complet PLATELE 013 4 ed T 06:38 VOLUME Granulo 86.2 % 37.0-80 complet cytes 013 .0 ed Fr Bld 06:38 Auto LYMPH % 09-01-2 11.4 % 10-50.0 complet 013 ed 06:38 Monocyt 09-01-2 2.2 % 1.7-9.3 complet es Fr 013 ed Bld 06:38 Auto Eosinop 09-01-2 0.2 % 0.1-12. complet hil Fr 013 0 ed Bld 06:38 Auto Basophi 09-01-2 0.1 % 0.1-2.0 complet ls Fr 013 ed Bld 06:38 Auto Granulo 09-01-2 4.2 1.8-7.8 complet cytes # 013 K/mm3 ed Bld 06:38 Auto Lymphoc 09-01-2 0.6 0.7-4.5 complet ytes Fr 013 K/mm3 ed Bld 06:38 Auto Monocyt 09-01-2 0.1 0.1-1.0 complet es # 013 K/mm3 ed Bld 06:38 Auto Eosinop 09-01-2 0.0 0.0-0.4 complet hil # 013 K/mm3 ed Bld 06:38 Auto Basophi 09-01-2 0.0 0-0.2 complet ls # 013 K/MM3 [...] with AUTO DIFF (08-31-2012 11:30) WBC # 08-31-2 5.7 4.8-10. complet Bld 013 K/MM3 8 ed Auto 11:30 RBC # 30-2 4.32 4.2-5.4 complet Bld 013 M/mm3 ed [...] complet Auto 013 .5 ed 11:30 Platele 2 214 142-424 complet t Bld 013 K/mm3 [...] 013 K/mm3 ed Bld 11:30 Auto Monocyt 08-31-2 0.3 0.1-1.0 complet es # 013 K/mm3 ed Bld 11:30 Auto Eosinop 30-2 0.5 0.0-0.4 complet hil # 013 K/mm3 ed Bld 11:30 Auto Basophi 30-2 0.0 0-0.2 complet ls # 013 K/MM3 ed Bld 11:30 Auto MYCOPLASMA IGM (RAPID) (08-31-2012 11:30) MYCOPLA 30-2 NON-JADYN NONREAC complet SMA IGM 013 CTIVE [...] INC O2 SYS RENT; FLWMTR HUMIDFR&M ASK BLOOD 72801 [facility] COMPLETE INC INC AUTO&AUTO DIFRNTL WBC COLLECTIO 87449 [facility] Nova VENOUS 7 [facility] BLOOD INC INC VENIPUNCT URE PRESSURIZ 49076 [facility] ED/NONPRE 7 [facility] SSURIZED INC INC INHALATIO N TREATMENT NONINVASI 19766 [facility] VE [facility] EAR/PULSE INC INC OXIMETRY SINGLE DETER BASIC 64288 [facility] METABOLIC 7 [facility] PANEL INC INC CALCIUM TOTAL BASIC 42181 [facility] YOU METABOLIC 7 [facility] PANEL INC INC CALCIUM TOTAL NONINVASI 90281 [facility] [facility] VE 7 [facility] EAR/PULSE INC INC OXIMETRY SINGLE DETER PRESSURIZ 00883 [facility] [facility] ED/NONPRE 7 [facility] SSURIZED INC INC INHALATIO N TREATMENT COLLECTIO 88862 [facility] [facility] N VENOUS 7 [facility] BLOOD [facility] INC [facility]IPUNCT URE HOSP[facility] G0378 [facility] OBSERVATI 7 [facility] ON INC INC SERVICE PER HOUR THERAPEUT 45043 [facility] IC 7 [facility] INJECTION INC INC IV PUSH EACH NEW DRUG THER 15969 [facility] PROPH/DX 7 [facility] NJX IV INC INC PUSH SINGLE/1S T [facility] G0378 [facility] OBSERVATI 7 [facility] ON INC INC SERVICE PER HOUR PRESSURIZ 45410 [facility] ED/NONPRE 7 [facility] SSURIZED INC INC INHALATIO N TREATMENT NONINVASI 25513 [place] YOU VE 7 [facility] EAR/PULSE INC INC OXIMETRY SINGLE DETER PRESSURIZ 16167 [facility] ED/NONPRE 7 [facility] SSURIZED INC INC INHALATIO N TREATMENT CREATINE 73666 [facility] YOU KINASE MB 7 [facility] FRACTION INC INC ONLY BLOOD 35669 [facility] GASES ANY 7 [facility] INC INC COMBINATI ON PH PCO2 PO2 CO2 HCO3 COMPREHEN 85134 [facility] YOU SIVE 7 [facility] METABOLIC INC INC PANEL BLOOD 47145 [facility] YOU COUNT 7 [facility] COMPLETE INC INC AUTO&[place] [address] [facility] TROPONIN 7 [facility] QUANTITAT INC INC CARLOS ECG 70027 [facility] ADAMS ROUTINE 7 [facility] W/LEAST P 12 LDS I&R ONLY RADIOLOGI 76086 [facility] YOU C 7 [facility] EXAMINATI INC INC ON CHEST S[place] FRONTAL ECG 57520 [facility] YOU ROUTINE 7 [facility] ECG INC INC W/LEAST 12 LDS TRCG ONLY W/O I&R CREATINE 29007 [facility] YOU KINASE 7 [facility] TOTAL INC INC PRTBLE [id number] PATIENT PATIENT GASEOUS 7 AIDS INC AIDS INC O2 SYS RENT; FLWMTR HUMIDFR&M ASK O2 CONC 1 [id number] PATIENT PATIENT DEL PORT 7 AIDS INC AIDS INC 85%/>02 CONC AT [facility] FLW RATE PHYS [id number] RODNEY ADAMS RE-CERT 7 [place] MCR-COVR INTERNAL [facility] SRVC RE-CERT [facility] 24869 [place] BRYAN DISCHARGE 7 [place] DAY INTERNAL MANAGEMEN MED T 30 MIN/< SBSQ [id number] CARE/DAY INTERNAL 25 MED MINUTES SBSQ [id number]/DAY INTERNAL 25 MED MINUTES ECG 59998 [facility] DIAZ JR ROUTINE 7 [facility] W/LEAST P 12 LDS I&R ONLY ECG 23576 [place] ADAMS ROUTINE [address] [place] [address] W/LEAST P 12 LDS I&R ONLY RADIOLOGI 97024 [facility] C EXAM 7 MEDICAL CHEST 2 IMAGING VIEWS ASS FRONTAL&L ATERAL PRTBLE E0431 PATIENT PATIENT GASEOUS 7 AIDS INC AIDS INC O2 SYS RENT; FLWMTR HUMIDFR&M ASK O2 CONC 1 E1390 PATIENT PATIENT DEL PORT 7 AIDS INC AIDS INC 85%/>02 CONC AT [facility] FLW RATE COLLECTIO 23667 [facility] VENOUS 7 [facility] VENIPUNCT PHYSICIAN URE S PRTBLE E0431 PATIENT PATIENT GASEOUS 6 AIDS INC AIDS INC O2 SYS RENT; FLWMTR HUMIDFR&M ASK O2 CONC 1 E1390 PATIENT PATIENT DEL PORT 6 AIDS INC AIDS INC 85%/>02 CONC AT [facility] FLW RATE PRESSURIZ 85164 [facility] YOU ED/NONPRE 6 [facility] SSURIZED INC INC INHALATIO N TREATMENT NONINVASI 19333 [facility] YOU VE 6 [facility] EAR/PULSE INC INC OXIMETRY [facility] G0378 K[facility] YOU OBSERVATI 6 [facility] ON INC INC SERVICE [facility] G0378 [facility] YOU OBSERVATI 6 [facility] ON INC INC SERVICE PER HOUR NONINVASI 90635 [facility] YOU VE 6 [facility] EAR/PULSE INC INC OXIMETRY SINGLE DETER PRESSURIZ 95579 [facility] YOU ED/NONPRE 6 [facility] SSURIZED INC INC INHALATIO N TREATMENT PRESSURIZ 91994 [facility] YOU ED/NONPRE 6 [facility] SSURIZED INC INC INHALATIO N TREATMENT NONINVASI 60896 [facility] YOU VE 6 [facility] EAR/PULSE INC INC OXIMETRY SINGLE DETER COLLECTIO 05549 K[facility] YOU N VENOUS 6 [facility] BLOOD INC INC VENIPUNCT [facility] G0378 K[place] YOU OBSERVATI 6 [facility] ON INC INC SERVICE PER HOUR BLOOD 70846 [facility] YOU COUNT 6 [facility] COMPLETE INC INC AUTO&AUTO DIFRNTL WBC BASIC 06833 [facility] YOU METABOLIC 6 [facility] PANEL INC INC [facility] G0378 K[facility] YOU OBSERVATI 6 [facility] ON INC INC SERVICE PER HOUR BLOOD 30401 [facility] YOU COUNT 6 [facility] COMPLETE INC INC AUTO&[place] [address] K[facility] YOU TROPONIN 6 [facility] QUANTITAT INC INC CARLOS RADIOLOGI 83517 [facility] C EXAM 6 MEDICAL CHEST 2 IMAGING VIEWS ASS FRONTAL&L ATERAL ECG 04656 KENY[facility]TA DIAZ JR ROUTINE 6 [facility] W/LEAST P 12 LDS I&R ONLY COMPREHEN 50484 [facility] YOU SIVE 6 [facility] METABOLIC INC INC PANEL BLOOD 95502 [facility] YOU GASES ANY 6 [facility] INC INC COMBINATI ON PH PCO2 PO2 CO2 [place] [address] [facility] YOU INFUSION 6 [facility] THERAPY/P INC INC ROPHYLAXI S /DX 1ST TO 1 HR NATRIURET 04122 [facility] YOU IC 6 [facility] [place] [address] [facility] YOU LACTATE 6 [facility] INC INC CREATINE 92759 KEN[facility]TA YOU KINASE MB 6 [facility] FRACTION INC INC ONLY CREATINE 29098 [facility] YOU KINASE 6 [facility] TOTAL INC INC ECG 89416 [facility] YOU ROUTINE 6 [facility] ECG INC INC W/LEAST 12 LDS TRCG ONLY W/O I&R THERAPEUT 95947 [facility] YOU IC 6 [facility] INJECTION INC INC IV PUSH EACH NEW DRUG THERAPEUT 41590 KENYATTANAEL YOU IC 6 [facility] INJECTION INC INC IV PUSH EACH NEW DRUG THER 11855 K[facility] YOU PROPH/DX 6 [facility] NJX IV INC INC PUSH SINGLE/1S T SBST/DRUG RADIOLOGI 78402 [facility] C 6 MEDICAL EXAMINATI IMAGING ON [place] [address] K[facility]TA YOU LACTATE 6 [facility] INC INC PRESSURIZ 02029 K[facility] YOU ED/NONPRE 6 [facility] SSURIZED INC INC INHALATIO N TREATMENT COMPREHEN 88251 [facility] YOU SIVE 6 [facility] METABOLIC INC INC PANEL CULTURE 58561 [facility] YOU BACTERIAL 6 [facility] BLOOD INC INC AEROBIC W/ID ISOLATES BLOOD 08938 [facility] YOU COUNT 6 [facility] COMPLETE INC INC AUTO&AUTO DIFRNTL WBC PRTBLE E0431 PATIENT PATIENT GASEOUS 6 AIDS INC AIDS INC O2 SYS RENT; FLWMTR HUMIDFR&M ASK O2 CONC 1 E1390 PATIENT PATIENT DEL PORT 6 AIDS INC AIDS INC 85%/>02 CONC AT PRS FLW RATE BLOOD 70979 [facility] YOU COUNT 6 [facility] COMPLETE INC INC AUTO&AUTO DIFRNTL [facility] G0378 [facility] YOU OBSERVATI 6 [facility] ON INC INC SERVICE PER HOUR COMPREHEN 23771 KEN[facility]TA YOU SIVE 6 [facility] METABOLIC INC INC PANEL COLLECTIO 44202 [facility] YOU N VENOUS 6 [facility] BLOOD INC INC VENIPUNCT URE PRESSURIZ 06831 [facility] YOU ED/NONPRE 6 [facility] SSURIZED INC INC INHALATIO N TREATMENT GLUC BLD 38202 K[facility] YOU GLUC MNTR 6 [facility] DEV INC INC CLEARED FDA SPEC HOME USE NONINVASI 32966 K[facility] YOU VE 6 [facility] EAR/PULSE INC INC OXIMETRY SINGLE DETER NONINVASI 72536 [facility] YOU VE 6 [facility] EAR/PULSE INC INC OXIMETRY SINGLE DETER GLUC BLD 41823 K[facility] YOU GLUC MNTR 6 [facility] DEV INC INC CLEARED FDA SPEC HOME USE PRESSURIZ 69292 K[facility] YOU ED/NONPRE 6 [facility] SSURIZED INC INC INHALATIO N TREATMENT HOSPITAL G0378 [facility] YOU OBSERVATI 6 [facility] ON INC INC SERVICE [facility] G0378 K[place] YOU OBSERVATI 6 [facility] [place] [address] KENY[place]TA YOU TROPONIN 6 [facility] QUANTITAT INC INC CARLOS BLOOD 75903 KEN[facility]TA YOU COUNT 6 [facility] COMPLETE INC INC AUTO&AUTO DIFRNTL WBC CULTURE 80047 K[facility] YOU BACTERIAL 6 [facility] BLOOD INC INC AEROBIC W/[place] [address] K[facility]TA YOU LACTATE 6 [facility] INC INC CREATINE 94514 KENYATTA YUO KINASE MB 6 [facility] [place] [address] KENY[facility]TA YOU INFUSION 6 [facility] THERAPY/P INC INC ROPHYLAXI S /DX 1ST TO 1 HR NONINVASI 92282 K[facility] YOU VE 6 [facility] EAR/PULSE INC INC OXIMETRY SINGLE DETER PRESSURIZ 49572 K[facility] YOU ED/NONPRE 6 [facility] SSURIZED INC INC INHALATIO N TREATMENT ECG 09529 KENY[place]TA DIAZ JR ROUTINE 6 [facility] W/LEAST P 12 LDS I&R ONLY COMPREHEN 34582 KENY[facility]TA YOU SIVE 6 [facility] METABOLIC INC INC PANEL GLUC BLD 37848 KENY[place]TA YOU GLUC MNTR 6 [facility] DEV INC INC CLEARED FDA SPEC HOME USE RADIOLOGI 29743 K[facility] YOU C 6 [facility] EXAMINATI INC INC ON CHEST SINGLE VIEW FRONTAL THERAPEUT 79656 K[facility]TA YOU IC 6 [facility] INJECTION INC INC IV PUSH EACH NEW DRUG INITIAL 00635 [facility] OBSERVATI 6 PHYSICIAN EUG ON S GROUP CARE/DAY 50 MINUTES ECG 48443 KENYATTA YOU ROUTINE 6 [facility] ECG INC INC W/LEAST 12 LDS TRCG ONLY W/O I&R CREATINE 45042 KEN[facility]TA YOU KINASE 6 [facility] TOTAL INC INC PRTBLE E0431 PATIENT PATIENT GASEOUS 6 AIDS [...] O2 SYS RENT; FLWMTR HUMIDFR&M ASK RADEX 54905 RADI[facility] HIPS 6 BILATERAL ASSOCIATE WITH S OF NOTH PELVIS [address] [facility] LUMBOSACR FT FT AL BOBBY BOBBY MINIMUM 4 VIEWS RADEX 99988 [facility] [place] SPINE 6 LUMBOSACR ASSOCIATE AL 2/3 S OF NOTH VIEWS PRTBLE E0431 PATIENT PATIENT GASEOUS 6 [...] INC O2 SYS RENT; FLWMTR HUMIDFR&M ASK ANES 14965 ANESTHESI BAKER LOLA UPPER GI 6 A GROUP ENDOSCOPY PRACT[place] [address] MED CTR GROSS&DIONNA ROSCOPIC EXAM INITIAL [address] CARE/DAY 50 PHYSICIAN MINUTES S SBSQ [address] CARE/DAY 25 PHYSICIAN MINUTES S SBSQ [address] CARE/DAY 25 PHYSICIAN MINUTES S SBSQ [address] CARE/DAY 25 PHYSICIAN MINUTES S SBSQ [address] CARE/DAY 25 PHYSICIAN MINUTES S SBSQ [address] CARE/DAY 25 PHYSICIAN MINUTES S SBSQ [address] CARE/DAY 25 PHYSICIAN MINUTES S INITIAL [address] CARE/DAY [address] [place] [address] RADIOLOGY [place] ANGIOGRAP 6 JORDYN HY CHEST ASSOCIATE W/CONTRAS S OF [facility] T/NONCONT RAST RADIOLOGI 14162 [facility] 6 EXAMINATI ASSOCIATE ON CHEST S OF [facility] SINGLE VIEW FRONTAL PRTBLE E0431 PATIENT PATIENT GASEOUS 6 AIDS INC AIDS INC O2 SYS RENT; [facility] HUMIDFR&M ASK O2 CONC 1 E1390 PATIENT PATIENT DEL PORT 6 AIDS INC AIDS INC 85%/>02 CONC AT [facility] 24538 [facility] DISCHARGE [address] [place] [address] MANAGEMEN PHYSICIAN T 30 S MIN/< SBSQ [address] CARE/DAY 25 PHYSICIAN MINUTES S SBSQ [address] CARE/DAY 25 PHYSICIAN MINUTES S CV STRS [address] [facility] TST 6 NATHANIEL ER TORIBIO XERS&/OR RX CONT PHYSICIAN ECG W/O S I&R MYOCARDIA 05693 ST GARCIA BERNICE L SPECT 6 [facility] [place] [address] RADIOLOGY [facility] CERVICAL 6 DOT SPINE W/O ASSOCIATE CONTRAST S OF [facility] MATERIAL CV STRS 60692 [facility] TST 6 NATHANIEL ER TORIBIO XERS&/OR RX CONT PHYSICIAN ECG I&R S ONLY INITIAL [address]/DAY 50 PHYSICIAN MINUTES S SBSQ [address] CARE/DAY 25 PHYSICIAN MINUTES S SBSQ [address] CARE/DAY 25 PHYSICIAN MINUTES S INITIAL [address]9425 [facility] 6 NATHANIEL GAR CARE/DAY 50 PHYSICIAN MINUTES S PRTBLE E0431 [...] AIDS INC AIDS INC 85%/>02 CONC AT [facility] [address] [facility] DAY MANAGEMEN PHYSICIAN PHYSICIAN T 30 S S MIN/< DUP-SCAN 47874 [facility] XTR VEINS 5 NATHANIEL BRA COMPLETE MED CTR BILATERAL STUDY PRTBLE E0431 [...] SYS RENT; FLWMTR HUMIDFR&M ASK CT THORAX [address] [facility] W/CONTRAS FT FT [place] ROSALES MATERIAL PRTBLE E0431 PATIENT PATIENT GASEOUS 5 AIDS INC AIDS INC O2 SYS RENT; FLWMTR HUMIDFR&M ASK O2 CONC 1 E1390 PATIENT PATIENT DEL PORT 5 AIDS INC AIDS INC 85%/>02 CONC AT PRS FLW RATE O2 CONC 1 E1390 PATIENT PATIENT DEL PORT 5 AIDS INC AIDS INC 85%/>02 CONC AT [facility] FLW RATE PRTBLE E0431 PATIENT PATIENT GASEOUS 5 AIDS INC AIDS INC O2 SYS RENT; [place] [address] [facility] DIFFUSING 5 NATHANIEL YEAR LAT CAPACITY PHYSICIAN S BRNCDILAT 61790 [facility] RSPSE 5 NATHANIEL YEAR LAT SPMTRY PRE&POST- PHYSICIAN BRNCDILAT S ADMN PLETHYSMO 07524 [facility] GRAPHY 5 NATHANIEL YEAR LAT LUNG VOLUMES PHYSICIAN W/WO S [facility] [address] NIV DISCHARGE 5 MANAGEMEN PHYSICIAN T 30 S MIN/< WALKER E0143 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 FOLDING 5 [facility] WHEELED [facility]ICAL MEDICAL ADJUSTABL SVCS SVCS E/FIXED HEIGHT SEAT E0156 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 5 STONE STONE T [facility] SV[facility] CT THORAX 01346 RADIOLOGY [facility] 5 KAROLYN W/CONTRAS ASSOCIATE T S OF NOTH MATERIAL RADEX 03391 RADIOLOGY [facility] SHOULDER 5 COMPLETE ASSOCIATE MINIMUM 2 S OF NOTH VIEWS BRNCDILAT 89727 [facility] RSPSE 4 NATHANIEL IRF SPMTRY MED CTR PRE&[place] [address] [facility] DIFFUSING 4 NATHANIEL IRF CAPACITY MED CTR PLETHYSMO 22779 [facility] GRAPHY 4 NATHANIEL IRF LUNG MED CTR VOLUMES W/WO AIRWAY RESIST CT THORAX 86396 RADIOLOGY [facility] 4 W/CONTRAS ASSOCIATE T S OF NOTH MATERIAL CT THORAX 05230 [facility] 4 NATHANIEL NATHANIEL W/CONTRAS FT FT T [facility] 51908 [facility] DISCHARGE 4 MANAGEMEN T 30 MIN/< RADIOLOGI 67711 ADRIANA Salazar MAURO EXAMINATI ON CHEST SINGLE VIEW FRONTAL CT THORAX 46187 RANJIT Salazar MAURO MAURO W/CONTRAS T MATERIAL PRTBLE E0431 PATIENT PATIENT GASEOUS 4 AIDS [...] INC 85%/>02 CONC AT PRS FLW RATE LIPID [address] PANEL 3 [facility] MED CTR MED CTR MANAGER ER ST MANAGER ER ST COMPREHEN [address] S[address] [facility] METABOLIC MED CTR MED CTR PANEL MANAGER [place] [address]YROID 3 [facility] STIMULATI MED CTR MED CTR NG MANAGER ER ST MANAGER ER ST HORMONE TSH BLOOD [address] COUNT [address] [facility] COMPLETE MED CTR MED CTR AUTO&AUTO MANAGER ER ST MANAGER ER ST DIFRNTL WBC PRTBLE E0431 PATIENT PATIENT [...] INC O2 SYS RENT; FLWMTR HUMIDFR&M ASK NONEMERG A0120 LKLP CAC LKLP CAC TRNSPRT: 3 INC INC MINI-[place] REGION 9 REGION 9 [facility] AREA/OT SYS BLOOD 32364 [facility] COUNT 3 N JORDYN N [facility] COMPLETE AUTO&AUTO DIFRNTL WBC COMPREHEN [address] METABOLIC MEDICAL MEDICAL PANEL C C PRTBLE E0431 PATIENT PATIENT GASEOUS 3 AIDS INC AIDS INC O2 SYS RENT; FLWMTR HUMIDFR&M ASK O2 CONC 1 E1390 PATIENT PATIENT DEL PORT 3 AIDS INC AIDS INC 85%/>02 CONC AT PRSC [place]W [place] RADEX [address] SPINE 3 NATHANIEL NATHANIEL LUMBOSACR FT FT AL 2/3 BOBBY BOBBY VIEWS PRTBLE E0431 PATIENT PATIENT GASEOUS 3 AIDS INC AIDS INC O2 SYS RENT; FLWMTR HUMIDFR&M ASK FLUORODEO A[address] XYGLUCOSE 3 NATHANIEL NATHANIEL F-18 [facility] DX UP TO CENTER CENTER 45 MCI PET 16828 [facility] IMAGING [address] ATTENUATI ON SKULL BASE MID-THIGH PORTABLE E0443 PATIENT PATIENT O2 3 AIDS INC AIDS INC CONTENTS GASEOUS 1 MO SUPPLY=1 UNIT O2 CONC 1 E1390 PATIENT PATIENT DEL PORT 3 AIDS INC AIDS INC 85%/>02 CONC AT PRSC FLW RATE PRTBLE E0431 PATIENT PATIENT GASEOUS 3 AIDS INC AIDS INC O2 SYS RENT; FLWMTR HUMIDFR&M ASK BLOOD 92483 [facility] COUNT 3 N JORDYN N [facility] COMPLETE AUTO&AUTO DIFRNTL WBC COMPREHEN [address] METABOLIC MEDICAL MEDICAL PANEL C C LOCM Q9967 ST ST 300-399 3 NATHANIEL NATHANIEL MG/ML FT FT IODINE BOBBY ROSALES CONCENTRA TION PER ML CT THORAX 52591 FUNMI FUNMI 3 CHR CHR W/CONTRAS T MATERIAL PRTBLE E0431 PATIENT PATIENT GASEOUS 3 AIDS INC AIDS INC O2 SYS RENT; FLWMTR HUMIDFR&M ASK O2 CONC 1 E1390 PATIENT PATIENT DEL PORT 3 AIDS INC AIDS INC 85%/>02 CONC AT [facility] FLW RATE BLOOD 23940 LEANDRA MOBLEY COUNT 3 N JORDYN N JORDYN COMPLETE AUTO&AUTO DIFRNTL WBC RADJ DLVR [address] 3/> 3 NATHANIEL NATHANIEL AREAS FT FT CUSTOM BOBBY BOBBY BLKING 11-19MEV RADJ DLVR [address] 3/> 3 NATHANIEL NATHANIEL AREAS FT FT CUSTOM BOBBY BOBBY BLKING 11-19MEV PRTBLE E0431 PATIENT PATIENT GASEOUS 3 AIDS INC AIDS INC O2 SYS RENT; FLWMTR HUMIDFR&M ASK O2 CONC 1 E1390 PATIENT PATIENT DEL PORT 3 AIDS INC AIDS INC 85%/>02 CONC AT [facility] FLW RATE RADJ DLVR [address] 3/> 3 NATHANIEL NATHANIEL AREAS FT FT CUSTOM BOBBY BOBBY BLKING 11-19MEV CONTINUIN 24652 [facility] 3 [facility] PHYSICS FT FT CONSLTJ BOBBY BOBBY [place] WK RADJ DLVR [address] 3/> 3 NATHANIEL NATHANIEL AREAS FT FT CUSTOM BOBBY BOBBY BLKING 11-19MEV RADJ DLVR [address] 3/> 3 NATHANIEL NATHANIEL AREAS FT FT CUSTOM BOBBY BOBBY BLKING 11-19MEV RADIATION 16887 SHO BERKOWITZ PRA 3 TREATMENT MANAGEMEN T 5 TREATMENT S THERAPEUT [address] [facility] [address] [facility] RADIOLOGY FT FT PORT BOBBY BOBBY IMAGES(S) RADJ DLVR [address] 3/> 3 ANTHANIEL NATHANIEL AREAS FT FT CUSTOM BOBBY BOBBY BLKING 11-19MEV BLOOD 03940 [facility] COUNT 3 OWSKI M OWSKI M COMPLETE AUTO&AUTO DIFRNTL WBC CONTINUIN 05503 [facility] FT CONSLTJ BOBBY [place]OB[place] WK RADJ DLVR [address] 3/> 3 NATHANIEL NATHANIEL AREAS FT FT CUSTOM BOBBY BOBBY BLKING 11-19MEV RADJ DLVR [address] 3/> 3 NATHANIEL NATHANIEL AREAS FT FT CUSTOM BOBBY BOBBY BLKING 11-19MEV RADJ DLVR [address] 3/> 3 NATHANIEL NATHANIEL AREAS FT FT CUSTOM BOBBY BOBBY BLKING 11-19MEV RADJ DLVR [address] 3/> 3 NATHANIEL NATHANIEL AREAS FT FT CUSTOM BOBBY BOBBY BLKING 11-19MEV THERAPEUT [address] IC [address] [facility] RADIOLOGY FT FT PORT BOBBY BOBBY IMAGES(S) RADIATION 86150 SHO [place]ERK[place] PRA 3 TREATMENT MANAGEMEN T 5 TREATMENT S RADJ DLVR [address] 3/> 3 NATHANIEL NATHANIEL AREAS FT FT CUSTOM BOBBY BOBBY BLKING 11-19MEV INJECTION J1200 LEANDRA MOBLEY 3 N JORDYN COBB DIPHENHYD RAMINE HCL UP TO 50 MG INJECTION J9045 LEANDRA MOBLEY 3 N JORDYN COBB CARBOPLAT IN 50 [place] [address] LEANDRA MOBLEY INFUSION 3 N JORDYN COBB THER PROPH ADDL SEQUENTIA L TO 1 HR CHEMOTX 06863 LEANDRA MOBLEY [place]MN IV 3 N JORDYN COBB NFS TQ EA SEQL NFS TO 1 HR BLOOD 13732 LEANDRA MOBLEY COUNT 3 N JORDYN COBB COMPLETE AUTO&AUTO DIFRNTL WBC RADJ DLVR [address] 3/> 3 NATHANIEL NATHANIEL AREAS FT FT CUSTOM BOBBY BOBBY BLKING 11-19MEV CONTINUIN [address] [facility]ICAL 3 [facility] PHYSICS FT FT CONSLTJ BOBBY BOBBY WI WK INJECTION J2405 LEANDRA MOBLEY 3 N JORDYN COBB ONDANSETR ON HCL PER 1 MG INJECTION J9265 LEANDRA MOBLEY 3 N JORDYN COBB PACLITAXE L 30 MG COMPREHEN 43491 LEANDRA MOBLEY SIVE 3 N JORDYN N JORDYN METABOLIC PANEL INJECTION J1100 LEANDRA MOBLEY 3 N JORDYN N JORDYN DEXAMETHO SONE SODIUM PHOSPHATE 1 MG INJECTION J2780 LEANDRA MOBLEY 3 N JORDYN COBB RANITIDIN E HYDROCHLO RIDE 25 MG CHEMOTX 00321 LEANDRA MOBLEY ADMN IV 3 N JORDYN COBB NFS TQ UP 1 HR SBST/DRUG RADJ DLVR [address] 3/> 3 NATHANIEL NATHANIEL AREAS FT FT CUSTOM BOBBY BOBBY BLKING 11-19MEV RADJ DLVR [address] 3/> 3 NATHANIEL NATHANIEL AREAS FT FT CUSTOM BOBBY BOBBY BLKING 11-19MEV RADJ DLVR [address] 3/> 3 NATHANIEL NATHANIEL AREAS FT FT CUSTOM BOBBY BOBBY BLKING 11-19MEV RADIATION 83551 [place] PRA BERKOWITZ PRA 3 TREATMENT MANAGEMEN T 5 TREATMENT S THERAPEUT [address] IC 3 NATHANIEL NATHANIEL RADIOLOGY FT FT PORT BOBBY BOBBY IMAGES(S) RADJ DLVR [address] 3/> 3 NATHANIEL NATHANIEL AREAS FT FT CUSTOM BOBBY BOBBY BLKING 11-19MEV RADJ DLVR [address] 3/> 3 NATHANIEL NATHANIEL AREAS FT FT CUSTOM BOBBY BOBBY BLKING 11-19MEV CONTINUIN [address] G MEDICAL 3 NATHANIEL NATHANIEL PHYSICS FT FT CONSLTJ BOBBY BOBBY [place] WK BLOOD 54761 LEANDRA MOBLEY COUNT 3 N JORDYN COBB COMPLETE AUTO&AUTO DIFRNTL WBC COMPREHEN 61909 LEANDRA MOBLEY SIVE 3 N JORDYN COBB METABOLIC PANEL INJECTION J9045 LEANDRA MOBLEY 3 N JORDYN COBB CARBOPLAT IN 50 [place] [address] [facility] DIFFUSING 3 YEAR LAT YEAR LAT CAPACITY BRNCDILAT 13449 [facility]OWN-P[facility] RSPSE 3 YEAR LAT YEAR LAT SPMTRY PRE&POST- BRNCDILAT ADMN PLETHYSMO 42206 [facility]OWN[facility] GRAPHY 3 YEAR LAT YEAR LAT LUNG VOLUMES W/WO AIRWAY RESIST RADIATION 10782 SHO SHAH 3 TREATMENT MANAGEMEN T 5 TREATMENT S BLOOD 41604 LEANDRA SAID BEL COUNT 3 N JORDYN COMPLETE AUTO&AUTO DIFRNTL WBC INJECTION J9265 LEANDRA MOBLEY 3 N JORDYN N JORDYN PACLITAXE L 30 MG INJECTION J2405 LEANDRA MOBLEY 3 N JORDYN N JORDYN ONDANSETR ON HCL PER 1 MG COMPREHEN 66880 LEANDRA MOBLEY SIVE 3 N JORDYN COBB METABOLIC PANEL INJECTION J2780 LEANDRA KERRI 3 N JORDYN VELASQUEZ RANITIDIN E HYDROCHLO RIDE 25 MG INJECTION J1100 LEANDRA MOBLEY 3 N JORDYN N JORDYN DEXAMETHO SONE SODIUM PHOSPHATE 1 [place] [address] LEANDRA MOBLEY INFUSION 3 N JORDYN N JORDYN THER PROPH ADDL SEQUENTIA L TO 1 HR INJECTION J9045 LEANDRA MOBLEY 3 N JORDYN N JORDYN CARBOPLAT IN 50 MG INJECTION J1200 LEANDRA MOBLEY 3 N JORDYN N JORDYN DIPHENHYD RAMINE HCL UP TO 50 MG CHEMOTX 16669 LEANDRA MOBLEY ADMN IV 3 N JORDYN COBB NFS TQ EA SEQL NFS TO 1 HR CHEMOTX 20065 LEANDRA MOBLEY ADMN IV 3 N JORDYN N JORDYN NFS TQ UP 1 HR SBST/DRUG RADIATION 67342 SHO SHAH 3 TREATMENT MANAGEMEN T 5 TREATMENT S PRTBLE E0431 KAMALJIT KAMALJIT GASEOUS 3 HOME HOME O2 SYS MEDICAL MEDICAL RENT; EQUIPME EQUIPME FLWMTR HUMIDFR&M ASK O2 CONC 1 E1390 KAMALJIT MARTINEZ PORT 3 HOME HOME 85%/>02 MEDICAL MEDICAL CONC AT [facility] FLW RATE CHEMOTX 80869 LEANDRA [place]OB[place]MN [place] 3 N JORDYN N JORDYN NFS TQ UP 1 HR SBST/DRUG CHEMOTX 01399 LEANDRA MOBLEY ADMN IV 3 N JORDYN N JORDYN NFS TQ EA SEQL NFS TO 1 HR INJECTION J1200 LEANDRA MOBLYE 3 N JORDYN N JORDYN DIPHENHYD RAMINE HCL UP TO 50 MG INJECTION J9045 LEANDRA MOBLEY 3 N JORDYN N JORDYN CARBOPLAT IN 50 [place] [address] LEANDRA MOBLEY INFUSION 3 N JORDYN N JORDYN THER PROPH ADDL SEQUENTIA L TO 1 HR INJECTION J2405 LEANDRA MOBLEY 3 N JORDYN N JORDYN ONDANSETR ON HCL PER 1 MG BLOOD 79917 LEANDRA CHRISTENSENMIE COUNT 3 N JORDYN JR CHRYSTAL COMPLETE AUTO&AUTO DIFRNTL WBC INJECTION J9265 LEANDRA BARNESMAN 3 N JORDYN N JORDYN PACLITAXE L 30 MG INJECTION J1100 LEANDRA MOBLEY 3 N JORDYN N JORDYN DEXAMETHO SONE SODIUM PHOSPHATE 1 MG INJECTION J2780 LEANDRA MOBLEY 3 N JORDYN N JORDYN RANITIDIN E HYDROCHLO RIDE 25 MG COMPREHEN [id number] LEANDRA MOBLEY SIVE 3 N JORDYN N JORDYN METABOLIC PANEL RADIATION 96054 SHO BERKOWITZ PRA 3 TREATMENT MANAGEMEN T 5 TREATMENT S BLOOD 73326 LEANDRA BARNESMAN COUNT 3 N JORDYN N JORDYN COMPLETE AUTO&AUTO DIFRNTL WBC INJECTION J9265 LEANDRA BARNESMAN 3 N JORDYN N JORDYN PACLITAXE L 30 MG COMPREHEN 95260 LEANDRA MOBLEY SIVE 3 N JORDYN N JORDYN METABOLIC PANEL INJECTION J2780 LEANDRA BARNESMAN 3 N JORDYN N JORDYN RANITIDIN E HYDROCHLO RIDE 25 MG INJECTION J1100 LEANDRA MOBLEY 3 N JORDYN N JORDYN DEXAMETHO SONE SODIUM PHOSPHATE 1 [place] [address] LEANDRA MOBLEY INFUSION 3 N JORDYN N JORDYN THER PROPH ADDL SEQUENTIA L TO 1 HR INJECTION J9045 LEANDRA MOBLEY 3 N JORDYN N JORDYN CARBOPLAT IN 50 MG INJECTION J1200 LEANDRA MOBLEY 3 N JORDYN N JORDYN DIPHENHYD RAMINE HCL UP TO 50 MG CHEMOTX 24769 LEANDRA MOBLEY ADMN IV 3 N JORDYN N JORDYN NFS TQ EA SEQL NFS TO 1 HR CHEMOTX 80032 LEANDRA MOBLEY ADMN IV 3 N JORDYN N JORDYN NFS TQ UP 1 HR SBST/DRUG ADMN SET A7003 YOUR YOUR SM VOL [address] [facility] PNEUMAT NEBULIZR DISPBL 3-D 28847 [facility] RADIOTHER 3 BRA BRA APY PLAN DOSE-VOLU ME HISTOGRAM S BASIC 36266 [facility] [place] [address] [facility] DEVICES 3 BRA BRA DESIGN & CONSTRUCT ION COMPLEX SPMTRY 48260 SRINIVASAN BAR SRINIVASAN BAR W/VC 3 EXPIRATOR Y JONATHAN W/[place] [address] [facility] GUIDANCE 3 RADIATION THERAPY FLDS PLACEMENT THERAPEUT 51512 SHO SHAH IC 3 RADIOLOGY TX PLANNING COMPLEX THER RAD 19593 SHO SHAH SIMULAJ-A 3 [place] [address] [facility] 3 [place] [...] AT EQUIPME EQUIPME PRSC FLW RATE BLOOD 81261 LEANDRA MOBLEY COUNT 3 N JORDYN N JORDYN COMPLETE AUTO&AUTO DIFRNTL WBC BLOOD 88150 [facility] COUNT 3 [facility] COMPLETE INC INC AUTO&AUTO DIFRNTL WBC COMPREHEN 61749 [facility] SIVE 3 [facility] METABOLIC INC INC PANEL ADMN SET A7003 YOUR YOUR SM VOL 3 [facility] NEBULIZR DISPBL PRTBLE E0431 KAMALJIT MARI GASEOUS 3 HOME HOME O2 SYS MEDICAL MEDICAL RENT; EQUIPME EQUIPFL FLWMTR HUMIDFR&M ASK O2 CONC 1 E1390 KAMALJIT MARI DEL PORT 3 HOME HOME 85%/>02 MEDICAL MEDICAL CONC AT EQUIPME EQUIPFL PRS FLW RATE CONSLTJ&R 78293 ERIKA JAMES EPRT 3 LOLA DAVILA SLIDES PREPARED ELSEWHERE NONINVASI 03322 [facility] [facility] VE 3 [facility] EAR/PULSE INC INC OXIMETRY SINGLE DETER PRESSURIZ 27396 [facility] YOU ED/NONPRE 3 [facility] SSURIZED INC INC INHALATIO N TREATMENT RADIOLOGI 54464 RUSS SOLANO C EXAM 3 RHEA RHEA CHEST 2 VIEWS FRONTAL&L [facility] G0378 [place] YOU OBSERVATI 3 [facility] ON INC INC SERVICE PER HOUR BLOOD 04324 [facility] YOU COUNT 3 [facility] COMPLETE INC INC AUTO&AUTO DIFRNTL WBC BASIC 15297 [place] YOU METABOLIC 3 [facility] PANEL INC INC CALCIUM TOTAL OBSERVATI 95790 BARBRA JEFFREY ON CARE 3 JR CHRYSTAL JR CHRYSTAL DISCHARGE MANAGEMEN T CYTP FINE 50191 PICKLESIM PICKLESIM NDL 3 ER JR SANA ER JR SANA ASPIRATE IMMT CYTOHIST STD DX 1ST CYTP EVAL 57941 PICKLESIM PICKLESIM FINE 3 ER JR SANA ER JR SANA NEEDLE ASPIRATE INTERP & REPORT LEVEL IV 02-06-201 14699 PICKLESIM PICKLESIM SURG 3 ER JR SANA ER JR SANA PATHOLOGY GROSS&DIONNA ROSCOPIC EXAM RADIOLOGI 54276 RUSS RUSS C EXAM 3 RHEA RHEA CHEST 2 VIEWS FRONTAL&[place] [address] [facility] YOU GUIDANCE 3 [facility] INC PLACEMENT CT THORAX 30132 [place] YOU W/O 3 [facility] CONTRAST INC INC MATERIAL PRESSURIZ 82960 [facility] YOU ED/NONPRE 3 [facility] SS[facility]IZED INC INC INHALATIO N TREATMENT NONINVASI 11017 [place] YOU VE [address] [facility] HOSP EAR/PULSE INC INC OXIMETRY SINGLE DETER FINE 46346 [place] YOU NEEDLE 3 [facility] ASPIRATIO INC INC N WITH IMAGING GUIDANCE ANESTHESI 03025 [facility] A CLOSED 3 ANESTH CHEST OF THE NEEDLE BLUE BIOPSY PLEURA INITIAL 40986 BRYAN ADAMS OBSERVATI 3 MAURO MAURO ON CARE/DAY 30 MINUTES THROMBOPL 81101 [place] YOU ASTIN [address] [facility] HOSP TIME INC INC PARTIAL PLASMA/WH OLE BLOOD PROTHROMB 71980 [place] YOU IN TIME [address] [facility] HOSP INC INC BLOOD 90448 KENYATTA YOU COUNT [address] [facility] HOSP COMPLETE INC INC AUTO&AUTO DIFRNTL [facility] 41994 [facility] DISCHARGE 3 JR JARRELL [facility] DAY MANAGEMEN T 30 MIN/< SBSQ 71985 [facility] HOSPITAL 3 CHRYSTAL [facility] CARE/DAY 25 MINUTES INITIAL 23436 [facility] 3 MA[place]O [place] CARE/DAY 50 MINUTES RADIOLOGI 05974 RUSS RUSS C EXAM 3 RHEA RHEA CHEST 2 VIEWS FRONTAL&[place] [address] RUSS RUSS ANGIOGRAP 3 RHEA RHEA HY CHEST W/CONTRAS T/NONCONT RAST NONINVASI 87192 BRYAN ADAMS VE 3 MAURO [place] EAR/PULSE OXIMETRY SINGLE DETER ECG 23712 EMILY DIAZ JR ROUTINE 3 DWI DWI ECG W/LEAST 12 LDS I&R ONLY ADMN SET A7003 YOUR YOUR SM VOL 3 PHARMACY PHARMACY NONFILTR [facility] PNEUMAT NEBULIZR DISPBL PRTBLE E0431 KAMALJTI KAMALJIT GASEOUS 3 HOME HOME O2 SYS [...] YOUR SM VOL 2 PHARMACY PHARMACY NONFILTR [facility] PNEUMAT NEBULIZR DISPBL GROUND A0425 [facility]ANCE AMBULANCE PER SERVICE SERVICE STATUTE MILE RADIOLOGI [address]35 [place] [address] MEDICAL RHEA EXAMINATI IMAGING ON CHEST ASS SINGLE VIEW FRONTAL AMB A0427 [facility] SERVICE 2 AMBULANCE AMBULANCE ALS SERVICE SERVICE EMERGENCY TRANSPORT LEVEL 1 BRNCDILAT 33955 BARBRA JEFFREY RSPSE 2 JR CHRYSTAL SANTOYO CHRYSTAL SPMTRY PRE&POST- BRNCDILAT ADMN BLOOD 89350 KENY[place]TA YOU GASES ANY 2 [facility] INC INC COMBINATI ON PH PCO2 PO2 CO2 HCO3 GAS 11906 BARBRA JEFFREY DILUT/WAS 2 JR CHRYSTAL SANTOYO CHRYSTAL HOUT LUNG VOL W/WO DISTRIB VENT&V PRTBLE E0431 KAMALJIT KAMALJIT GASEOUS 2 HOME HOME O2 SYS MEDICAL MEDICAL RENT; EQUIPME EQUIPME FLWMTR HUMIDFR&M ASK O2 CONC 1 E1390 KAMALJIT KAMALJIT DEL PORT 2 HOME HOME 85%/>02 MEDICAL MEDICAL CONC AT EQUIPME EQUIPME PRSC FLW RATE CT THORAX 96531 RUSS RUSS 2 RHEA RHEA W/CONTRAS T MATERIAL LOCM Q9967 KENYATTA YOU [phone] [facility] MG/ML INC INC IODINE CONCENTRA TION PER ML 3D 76185 KENY[place]TA YOU RENDERING 2 [facility] INC INC W/INTERP& POSTPROC DIFF WORK STATION RADIOLOGI 67648 KENYATTA MÉNDEZON C EXAM 2 [facility] CHEST 2 INC INC VIEWS FRONTAL&L ATERAL BLOOD 78612 K[place]TA YOU COUNT 2 [facility] COMPLETE INC INC AUTO&[place] [address] KENY[place]TA YOU THYROID 2 [facility] STIMULATI INC INC NG HORMONE TSH LIPID 66535 KENY[place]TA YOU PANEL 2 [facility] INC INC COMPREHEN 96973 KENYATTANAEL MÉNDEZON SIVE 2 [facility] METABOLIC INC INC PANEL CYANOCOBA 86238 KENY[place]TA YOU RAMBO 2 [facility] VITAMIN INC INC B-12 25 54075 K[place]TA YOU HYDROXY 2 [facility] INCLUDES INC INC FRACTIONS IF PERFORMED PRTBLE E0431 KAMALJIT SEVILLARELL GASEOUS 2 HOME HOME O2 SYS MEDICAL MEDICAL RENT; EQUIPME EQUIPME FLWMTR HUMIDFR&M ASK O2 CONC 1 E1390 KAMALJIT KAMALJIT DEL PORT 2 HOME HOME 85%/>02 MEDICAL MEDICAL CONC AT EQUIPME EQUIPME PRSC FLW RATE ADMN SET A7003 YOUR YOUR SM VOL 2 [facility] NE[facility] DISPBL PRTBLE E0431 KAMALJIT SEVILLARELL [...] EQUIPME FLWMTR HUMIDFR&M ASK PRTBLE E0431 KAMALJIT SEVILLARELL GASEOUS 2 HOME HOME O2 SYS MEDICAL MEDICAL RENT; EQUIPME EQUIPME FLWMTR HUMIDFR&M ASK O2 CONC 1 E1390 KAMALJIT MARI [place] 2 HOME HOME 85%/>02 MEDICAL MEDICAL CONC AT EQUIPME EQUIPME PRSC FLW RATE ADMN SET A7003 YOUR YOUR SM VOL 2 PHARMACY PHARMACY [facility] PNEUMAT NEBULIZR DISPBL 25 [id number] K[place]TA YOU HYDROXY 2 MEM HOS[facility]OS[facility] INCLUDES INC INC FRACTIONS IF PERFORMED CYANOCOBA 06222 K[place] YOU RAMBO 2 [facility]OS[facility] VITAMIN INC INC B-12 COMPREHEN 63685 K[place]TA YOU SIVE 2 [facility]OS[facility] METABOLIC INC INC PANEL LIPID 57170 [place] YOU PANEL 2 [place] [address] K[place] YOU THYROID 2 MEM [facility] MEM HOSP STIMULATI INC INC NG HORMONE TSH BLOOD 78464 KENYATTA YOU COUNT 2 MEM HOSP MEM [...] NONFILTR LLC [facility] PNEUMAT NEBULIZR DISP HOSPITAL 20465 [facility] 2 [facility] DAY INTERNAL MANAGEMEN MED T 30 MIN/< MYOCARDIA 48503 [facility] 2 [facility] MULTIPLE CARDIOLOG STUDIES Y CLINIC SBSQ [address] CARE/DAY INTERNAL 25 MED MINUTES SBSQ [address] CARE/DAY INTERNAL 25 MED MINUTES SBSQ [address] CARE/DAY INTERNAL 25 MED MINUTES AMB A0427 [facility] SERVICE 2 AMBULANCE AMBULANCE ALS SERVICE SERVICE EMERGENCY TRANSPORT LEVEL 1 CRITICAL 56826 [facility] 2 EMERGENCY ILL/INJUR SERVICES ED PATIENT INIT 30-74 MIN RADIOLOGI 54038 [facility] GUAJARDORUSS C 2 MEDICAL RHEA EXAMINATI IMAGING ON CHEST ASS SINGLE VIEW FRONTAL GROUND A0425 [facility]ULANCE AMBULANCE PER SERVICE SERVICE STATUTE MILE INITIAL [address] CARE/DAY INTERNAL 50 MED MINUTES PRTBLE E0431 KAMALJIT MARI GASEOUS 2 HOME HOME O2 SYS MEDICAL MEDICAL RENT; EQUIPME EQUIPME FLWMTR HUMIDFR&M ASK O2 CONC 1 E1390 KAMALJIT MARI [place] 2 HOME HOME 85%/>02 MEDICAL MEDICAL CONC AT EQUIPME EQUIPME PRSC FLW RATE NEBULIZER E0570 KAMALJIT MARI WITH 2 HOME HOME COMPRESSO MEDICAL MEDICAL R EQUIPME EQUIPME ADMN SET A7003 YOUR YOUR SM VOL 2 [facility] NE[facility]UL[facility] DISPBL BLOOD 91485 KENY[place]TA YOU COUNT 2 MEM [facility]OSP COMPLETE INC INC AUTO&AUTO DIFRNTL WBC BASIC 15027 KENY[place]TA YOU METABOLIC 2 MEM HOS[facility] MEM HOSP PANEL INC INC CALCIUM TOTAL O2 CONC 1 E1390 KAMALJIT MARI [place] 2 HOME HOME 85%/>02 MEDICAL MEDICAL CONC AT EQUIPME EQUIPME PRSC FLW RATE PRTBLE E0431 KAMALJIT MARI GASEOUS 2 HOME HOME O2 SYS MEDICAL MEDICAL RENT; EQUIPME EQUIPME FLWMTR [facility] 201[address] [facility] 2 JR CHRYSTAL SANTOYO CHRYSTAL DAY MANAGEMEN T 30 MIN/< SBSQ [address] MAURO CARE/DAY INTERNAL 25 MED MINUTES SBSQ [address] [place] CARE/DAY INTERNAL 25 MED MINUTES SBSQ [address] [facility] 2 JR CHRYSTAL JARRELL CARE/DAY 25 MINUTES SBSQ [address] [facility] 2 JR CHRYSTAL JARRELL CARE/DAY 35 MINUTES GROUND A0425 [facility] 2 AMBULANCE AMBULANCE PER SERVICE SERVICE STATUTE MILE INITIAL [address] [facility] 2 JR CHRYSTAL JARRELL CARE/DAY 70 MINUTES ECG 57110 HEBER BUCK ROUTINE 2 DIONNA DIONNA ECG W/LEAST 12 LDS I&R ONLY INTUBATIO 34593 HE[facility] BUCK N 2 DIONNA DIONNA ENDOTRACH EAL EMERGENCY PROCEDURE CRITICAL 93758 [facility] CARE 2 DIONNA DIONNA ILL/INJUR ED PATIENT INIT 30-74 MIN AMB A0427 [facility] 2 AMBULANCE AMBULANCE ALS SERVICE SERVICE EMERGENCY TRANSPORT LEVEL 1 CONT 9671 KENYATTA YOU INVASIVE [address] [facility] HOSP MECH VENT INC INC < 96 CONSECUTI VE HOURS INSERTION 9604 KENYATTA MÉNDEZON OF [address] [facility] HOSP ENDOTRACH INC INC EAL TUBE O2 CONC 1 E1390 KAMALJIT MARI DEL PORT 1 HOME HOME 85%/>02 MEDICAL MEDICAL CONC AT EQUIPME EQUIPME PRSC FLW RATE PRTBLE E0431 KAMALJIT KAMALJIT GASEOUS 1 HOME HOME O2 SYS MEDICAL MEDICAL RENT; EQUIPME EQUIPME FLWMTR HUMIDFR&M ASK RADIOLOGI 65544 RUSS RUSS C 1 RHEA RHEA EXAMINATI ON CHEST SINGLE VIEW FRONTAL ECG 28458 HEBER HAWTHORNEEY ROUTINE 1 DIONNA DIONNA ECG W/LEAST 12 LDS I&R ONLY PRTBLE E0431 KAMALJIT KAMALJIT GASEOUS 1 HOME HOME O2 SYS MEDICAL MEDICAL RENT; EQUIPME EQUIPME FLWMTR HUMIDFR&M ASK O2 CONC 1 E1390 KAMALJIT KAMALJIT DEL PORT 1 HOME HOME 85%/>02 MEDICAL MEDICAL CONC AT EQUIPME EQUIPME PRSC FLW RATE BASIC 76807 KENYATTA YOU METABOLIC [address] [facility] HOSP PANEL INC INC CALCIUM TOTAL ECG 03767 KENYATTA YOU ROUTINE [address] [facility] HOSP ECG INC INC W/LEAST 12 LDS TRCG ONLY W/O I&R PRESSURIZ 52392 KENYATTA YOU ED/NONPRE [address] [facility] HOSP SSURIZED INC INC INHALATIO N TREATMENT BLOOD 95578 KENYATTA YOU COUNT [address] [facility] HOSP COMPLETE INC INC AUTO&AUTO DIFRNTL WBC CULTURE 69310 KENYATTA YOU BACTERIAL [address] [facility] HOSP BLOOD INC INC AEROBIC W/ID ISOLATES RADIOLOGI 70080 ERIC SOLANO C EXAM 1 MEDICAL RHEA CHEST 2 IMAGING VIEWS ASS FRONTAL&L ATERAL ECG 17732 KENYATTA JEFFREY ROUTINE 1 [facility] W/LEAST P 12 LDS I&R ONLY PRTBLE E0431 KAMALJIT KAMALJIT GASEOUS 1 HOME HOME O2 SYS MEDICAL MEDICAL RENT; EQUIPME EQUIPME FLWMTR HUMIDFR&M ASK O2 CONC 1 E1390 KAMALJIT MARTINEZ PORT 1 HOME HOME 85%/>02 MEDICAL MEDICAL CONC AT EQUIPME EQUIPME PRSC FLW RATE AMB A0422 [facility]ILLY CERVANTES OXYGEN&O2 1 AMBULANCE AMBULANCE SUPPLIES SERVICE SERVICE LIFE SUSTAININ G SITUATION AMB A0427 [facility] SERVICE 1 AMBULANCE AMBULANCE ALS SERVICE SERVICE EMERGENCY TRANSPORT LEVEL 1 RAD[facility]OLOGI 68152 [facility] MEDICAL RHEA EXAMINATI IMAGING ON CHEST ASS SINGLE VIEW FRONTAL GROUND A0425 [facility] MILEAGE 1 AMBULANCE AMBULANCE PER SERVICE SERVICE STATUTE MILE ALS A0398 [facility] ROUTINE 1 AMBULANCE AMBULANCE DISPOSABL SERVICE SERVICE E SUPPLIES ECG 91103 NILSA SILVERIO ROUTINE 1 EMERGENCY III CHRYSTAL ECG SERVICES W/LEAST 12 LDS I&R ONLY PRTBLE E0431 KAMALJIT MARI GASEOUS 1 HOME HOME O2 SYS MEDICAL MEDICAL RENT; EQUIPME EQUIPME FLWMTR HUMIDFR&M ASK O2 CONC 1 E1390 KAMALJIT MARTINEZ PORT 1 HOME HOME 85%/>02 MEDICAL MEDICAL CONC AT EQUIPME EQUIPME PRSC FLW RATE O2 CONC 1 E1390 KAMALJIT MARTINEZ PORT 1 HOME HOME 85%/>02 MEDICAL MEDICAL CONC AT EQUIPME EQUIPME PRSC FLW RATE PRTBLE E0431 KAMALJIT MARI GASEOUS 1 HOME HOME O2 SYS MEDICAL MEDICAL RENT; EQUIPME EQUIPME FLWMTR HUMIDFR&M [facility] 57995 [facility] DISCHARGE 1 NATHANIEL DAY MED CTR MANAGEMEN T > 30 MIN SBSQ 88739 [facility] 1 NATHANIEL CARE/DAY MED CTR 25 MINUTES SBSQ 05669 [facility] 1 NATHANIEL CARE/DAY MED CTR [address] BOB ROUTINE 1 NATHANIEL GAR ECG W/LEAST PHYSICIAN 12 LDS S I&R ONLY ECG [address]3008 ST BOB ROUTINE 1 NATHANIEL GAR ECG W/LEAST PHYSICIAN 12 LDS S I&R ONLY ECHO [address] [facility] TTHRC R-T 1 NATHANIEL TORIBIO 2D W/WOM-MOD PHYSICIAN E COMPL S SPEC&COLR D INITIAL 93194 [facility] 1 NATHANIEL CARE/DAY MED CTR 70 MINUTES ALS A0398 FIRE DEPT FIRE DEPT ROUTINE 1 OF OF DISPOSABL NAFISA SKELTON E DAYTO DAYTO SUPPLIES GROUND A0425 FIRE DEPT FIRE DEPT MILEAGE 1 OF OF PER NAFISA SKELTON STATUTE DAYTO DAYTO MILE ECG 30924 DIAGNOSTI BOB ROUTINE 1 C GAR ECG CARDIOLOG W/LEAST ISTS INC 12 LDS I&R ONLY RADIOLOGI 89847 RADIOLOGY VIANEY C EXAM 1 TUS CHEST 2 ASSOCIATE VIEWS S PSC FRONTAL&L ATERAL AMB A0422 FIRE DEPT FIRE DEPT OXYGEN&O2 1 OF OF SUPPLIES NAFISA SKELTON LIFE DAYTO DAYTO SUSTAININ G SITUATION AMB A0427 FIRE DEPT FIRE DEPT SERVICE 1 OF OF ALS NAFISA SKELTON EMERGENCY DAYTO DAYTO TRANSPORT LEVEL 1 O2 CONC 1 E1390 KAMALJIT MARI [facility] 1 HOME MED HOME MED 85%/>02 EQUIP. L EQUIP. L CONC AT [facility] FLW RATE PRTBLE E0431 KAMALJIT MARI GASEOUS 1 HOME MED HOME MED O2 SYS EQUIP. L EQUIP. L [facility]ENT; [facility] H[facility]&M ASK PRTBLE E0431 KAMALJIT MARI GASEOUS 1 HOME MED HOME MED O2 SYS EQUIP. L EQUIP. L RENT; FLWMTR HUMIDFR&M ASK O2 CONC 1 E1390 KAMALJIT MARI [facility] PORT 1 HOME MED HOME MED 85%/>02 EQUIP. L EQUIP. L CONC AT [facility] FLW RATE O2 CONC 1 E1390 KAMALJIT MARI [facility] PORT 1 HOME MED HOME MED 85%/>02 EQUIP. L EQUIP. L CONC AT [facility] FLW RATE PRTBLE E0431 KAMALJIT KAMALJIT GASEOUS 1 HOME MED HOME MED O2 SYS EQUIP. L EQUIP. L RENT; FLWMTR HUMIDFR&M ASK RADIOLOGI [address] C 1 NATHANIEL ARMSTRONG EXAMINATI FT FT ON CHEST BOBBY ROSALES SINGLE VIEW FRONTAL THER [address] PROPH/DX 1 NATHANIELROSA ARMSTRONG NJX IV FT FT PUSH BOBBY ROSALES SINGLE/1S T SBST/DRUG GROUND A0425 FIRE DEPT FIRE DEPT MILEAGE 1 OF OF PER NAFISA SKELTON STATUTE DAYTO DAYTO MILE ALS A0398 FIRE DEPT FIRE DEPT ROUTINE 1 OF OF DISPOSABL NAFISA SKELTON E DAYTO DAYTO SUPPLIES ECG [address] ROUTINE 1 NATHANIEL ARMSTRONG ECG FT FT W/LEAST BOBBY ROSALES 12 LDS TRCG ONLY W/O I&[place] [address] TROPONIN 1 NATHANIEL ARMSTRONG QUANTITAT FT FT CARLOS BOBBY ROSALES BLOOD [address] COUNT 1 NATHANIEL ARMSTRONG COMPLETE FT FT AUTO&AUTO BOBBY ROSALES DIFRNTL WBC ECG 16627 DIAGNOSTI MCDANNOLD ROUTINE 1 C PEG ECG CARDIOLOG W/LEAST ISTS INC 12 LDS I&R ONLY NATRIURET [address] IC 1 NATHANIEL ARMSTRONG PEPTIDE FT FT BOBBY BOBBY THERAPEUT [address] IC 1 NATHANIEL CANTUTH INJECTION FT FT IV PUSH BOBBY ROSALES EACH NEW DRUG AMB A0427 FIRE DEPT FIRE DEPT SERVICE 1 OF OF ALS NAFISA SKELTON EMERGENCY DAYTO DAYTO TRANSPORT LEVEL 1 AMB A0422 FIRE DEPT FIRE DEPT OXYGEN&O2 1 OF OF SUPPLIES NAFISA SKELTON LIFE DAYTO DAYTO SUSTAININ G SITUATION BASIC [address] METABOLIC 1 NATHANIEL ARMSTRONG PANEL FT FT CALCIUM BOBBY BOBBY TOTAL THER [address] PROPH/DX 1 NATHANIEL ARMSTRONG NJX EA FT FT SEQL IV BOBBY BOBBY PUSH SBST/DRUG FAC O2 CONC 1 E1390 KAMALJIT MARI [facility] 1 HOME MED HOME MED 85%/>02 EQUIP. L EQUIP. L CONC AT [facility] FLW RATE PRTBLE E0431 KAMALJIT MARI G[facility] 1 HOME MED HOME MED O2 SYS EQUIP. L EQUIP. L RENT; [facility] HUMIDFR&M ASK PRTBLE E0431 KAMALJIT MARI GASEOUS 1 HOME MED HOME MED O2 SYS EQUIP. L EQUIP. L RENT; [facility] HUMIDFR&M ASK O2 CONC 1 E1390 KAMALJIT MARI [facility] 1 HOME MED HOME MED 85%/>02 EQUIP. L EQUIP. L CONC AT [facility] FLW RATE O2 CONC 1 E1390 [facility] HOME MED HOME MED 85%/>02 EQUIP. L EQUIP. L CONC AT [facility] FLW RATE PRTBLE E0431 KAMALJIT MARI GASEOUS 1 HOME MED HOME MED O2 SYS EQUIP. L EQUIP. L RENT; [facility] HUMIDFR&M [facility] [address] [facility] 1 [facility] DAY MED CTR MANAGEMEN T 30 MIN/< SBSQ 28374 [facility] 1 [facility] CARE/DAY MED CTR 25 MINUTES ECG 47100 DIAGNOSMYRLTE PATINOOLD ROUTINE 1 C PEG ECG CARDIOLOG W/LEAST ISTS INC 12 LDS I&R ONLY ECG 67638 DIAGNOSTI MCDANNOLD ROUTINE 1 C PEG ECG CARDIOLOG W/LEAST ISTS INC 12 LDS I&[place] [address] RAD[facility]OLOGY [facility] ANGIOGRAP 1 MICAH HY CHEST ASSOCIATE W/CONTRAS S PSC T/NONCONT RAST RADIOLOGI 27442 RADIOLOGY SCHMITTER C 1 MICAH EXAMINATI ASSOCIATE ON CHEST S PSC SINGLE VIEW FRONTAL ALS A0398 FIRE DEPT FIRE DEPT ROUTINE 1 OF OF DISPOSABL BELLEVUUE BELLEVUUE E DAYTO DAYTO SUPPLIES GROUND A0425 FIRE DEPT FIRE DEPT MILEAGE 1 OF OF PER BELLEVUUE BELLEVUUE STATUTE DAYTO DAYTO MILE AMB A0427 FIRE DEPT FIRE DEPT SERVICE 1 OF OF JAIDEN SKELTON EMERGENCY DAYTO DAYTO TRANSPORT LEVEL 1 O2 CONC 1 E1390 KAMALJIT MARI [place] 0 HOME MED HOME MED 85%/>02 EQUIP. L EQUIP. L CONC AT [facility] FLW RATE PRTBLE E0431 KAMALJIT MARI GASEOUS 0 HOME MED HOME MED O2 SYS EQUIP. L EQUIP. L RENT; FLWMTR HUMIDFR&M [facility] [address] [facility] DISCHARGE 0 [facility] MED CTR MANAGEMEN T > 30 MIN SBS 00876 [facility] 0 [facility] CARE/DAY MED CTR 25 MINUTES SBS 16493 [facility] 0 [facility] CARE/DAY MED CTR 25 MINUTES AMB A0422 FIRE DEPT FIRE DEPT OXYGEN&O2 0 OF OF SUPPLIES NAFISA SKELTON LIFE DAYTO DAYTO SUSTAININ G SITUATION CRITICAL 66307 EMERGENCY SEJAL CARE 0 CARE LISA ILL/INJUR PHYS ED [facility]THER[facility] PATIENT INIT 30-74 MIN AMB A0427 FIRE DEPT FIRE DEPT SERVICE 0 OF OF JAIDEN SKELTON EMERGENCY DAYTO DAYTO TRANSPORT LEVEL 1 RADIOLOGI 77619 RADIOLOGY NEILS LEO C 0 EXAMINATI ASSOCIATE ON CHEST S PSC SINGLE VIEW FRONTAL GROUND A0425 FIRE DEPT FIRE DEPT MILEAGE 0 OF OF PER NAFISA SKELTON STATUTE DAYTO DAYTO MILE ALS A0398 FIRE DEPT FIRE DEPT ROUTINE 0 OF OF DISPOSABL NAFISA SKELTON E DAYTO DAYTO SUPPLIES INITIAL 58249 [facility] 0 [facility] CARE/DAY MED CTR 50 MINUTES ECG 99599 DIAG[address]I RO NIV ROUTINE 0 C ECG CARDIOLOG W/LEAST ISTS INC 12 LDS I&R ONLY PRTBLE E0431 KAMALJIT MARI G[facility] 0 HOME MED HOME MED O2 SYS EQUIP. L EQUIP. L RENT; [facility] HUMIDFR&M ASK O2 CONC 1 E1390 KAMALJIT KAMALJIT DEL PORT 0 HOME MED HOME MED 85%/>02 EQUIP. L EQUIP. L CONC AT [facility] [address] [facility] DISCHARGE 0 NATHANIEL DAY MED CTR MANAGEMEN T > 30 MIN SBSQ 02557 [facility] 0 NATHANIEL CARE/DAY MED CTR 25 MINUTES RADIOLOGI 08730 RADIOLOGY VIANEY C EXAM 0 TUS CHEST 2 ASSOCIATE VIEWS S PSC FRONTAL&[place] [address] RADIOLOGY RANJIT LIMITED/L 0 MAURO OCALIZED ASSOCIATE FOLLOW UP S PSC STUDY INITIAL 01304 [facility] 0 NATHANIEL CARE/DAY MED CTR 70 MINUTES RADIOLOGI 98291 RADIOLOGY SURESH BYR C 0 EXAMINATI ASSOCIATE ON CHEST S PSC SINGLE VIEW FRONTAL ALS A0398 FIRE DEPT FIRE DEPT ROUTINE 0 OF OF DISPOSABL NAFISA POTTERUUE E DAYTO DAYTO SUPPLIES GROUND A0425 FIRE DEPT FIRE DEPT MILEAGE 0 OF OF PER FRANCESCOE TARIQUUE STATUTE DAYTO DAYTO MILE ECG 45562 DIAGNOSTI JAYJAY NIV ROUTINE 0 C ECG CARDIOLOG W/LEAST ISTS INC 12 LDS I&R ONLY AMB A0422 FIRE DEPT FIRE DEPT OXYGEN&O2 0 OF OF SUPPLIES NAFISA MAYAE LIFE DAYTO DAYTO SUSTAININ G SITUATION CRITICAL 06942 EMERG[facility]Y VEST QUIANA CARE 0 CARE ILL/INJUR PHYS ED [facility]THERN PATIENT INIT 30-74 MIN AMB A0427 FIRE DEPT FIRE DEPT SERVICE 0 OF OF ALS FRANCESCOE TARIQUUE EMERGENCY DAYTO DAYTO TRANSPORT LEVEL 1 O2 CONC 1 E1390 KAMALJITRACHEL MARI [place] 0 HOME MED HOME MED 85%/>02 EQUIP. L EQUIP. L CONC AT [facility] FLW RATE PRTBLE E0431 KAMALJIT MARI GASEOUS 0 HOME MED HOME MED O2 SYS EQUIP. L EQUIP. L RENT; [facility] HUMIDFR&M ASK PRTBLE E0431 KAMALJIT KAMALJIT GASEOUS 0 HOME MED HOME MED O2 SYS EQUIP. L EQUIP. L RENT; [facility] HUMIDFR&M ASK O2 CONC 1 E1390 KAMALJIT KAMALJIT DEL PORT 0 HOME MED HOME MED 85%/>02 EQUIP. L [facility]IP. L [facility] 1 E1390 KAMALJIT KAMALJIT DEL PORT 0 HOME MED HOME MED 85%/>02 EQUIP. L EQUIP. L [facility] E0431 KAMALJIT KAMALJIT GASEOUS 0 HOME MED HOME MED O2 SYS EQUIP. L EQUIP. L RENT; [facility] HUMIDFR&M ASK PRTBLE E0431 KAMALJIT KAMALJIT GASEOUS 0 HOME MED HOME MED O2 SYS EQUIP. EQUIP. RENT; [facility] HUMIDFR&M ASK O2 CONC 1 E1390 KAMALJIT KAMALJIT DEL PORT 0 HOME MED HOME MED 85%/>02 EQUIP. EQUIP. [facility] CONC 1 E1390 KAMALJIT KAMALJIT DEL [place] 0 HOME MED HOME MED 85%/>02 EQUIP. EQUIP. [facility] PRTBLE E0431 KAMALJIT KAMALJIT GASEOUS 0 HOME MED HOME MED O2 SYS EQUIP. EQUIP. RENT; [facility] HUMIDFR&M ASK PRTBLE E0431 KAMALJIT KAMALJIT GASEOUS 0 HOME MED HOME MED O2 SYS EQUIP. EQUIP. RENT; [facility] HUMIDFR&M ASK O2 CONC 1 E1390 KAMALJIT KAMALJIT DEL [place] 0 HOME MED HOME MED 85%/>02 EQUIP. EQUIP. [facility] O2 CONC 1 E1390 KAMALJIT KAMALJIT DEL [place] 0 HOME MED HOME MED 85%/>02 EQUIP. EQUIP. CONC AT [facility] FLW RATE PRTBLE E0431 KAMALJIT KAMALJIT GASEOUS 0 HOME MED HOME MED O2 SYS EQUIP. EQUIP. RENT; [facility] HUMIDFR&M ASK PRTBLE E0431 KAMALJIT KAMALJIT GASEOUS 0 HOME MED HOME MED O2 SYS EQUIP. EQUIP. RENT; [facility] FLWMTR HUMIDFR&M ASK O2 CONC 1 E1390 KAMALJIT MARI [place] 0 HOME MED HOME MED 85%/>02 EQUIP. EQUIP. CONC AT [facility] FLW RATE ANESTHESI 40631 INDEPENDE CHAPISROOR, A EYE 0 NT ALAM LENS ANESTHESI SURGERY OLOGIST CATARACT 37451 [facility], REMOVAL 0 I EYE [facility] CATARACT 59375 [facility], REMOVAL 0 I EYE [facility] ANESTHESI 80355 INDEPENDE [place], A EYE 0 NT FAVIOLA LENS ANESTHESI J SURGERY OLOGIST OPH BMTRY 80754 [facility], PRTL 0 I EYE [facility] INTRFRMTR Y IO LENS PWR JAIRON OPHTH 56551 [facility] 9 I EYE CANDY [facility] COM[facility] ESTAB PT 1/> HOSPITAL 11627 PATIENT [facility], DISCHARGE 9 FIRST CASSANDRA G DAY PHYS MANAGEMEN T 30 MIN/< INITIAL 00839 PATIENT [facility] 9 FIRST CASSANDRA G CARE/DAY PHYS 70 MINUTES RADIOLOGI 72488 RADIOLOGY MARTINEZ C 9 ROBERT Shea EXAMINATI ASSOCIATE ON CHEST S PSC [place] FRONTAL RHYTHM 35997 EMERGENCY HERFEL, ECG 1-3 9 CARE AGUILAR U LEADS PHYS INTERPRET [place] ECG [address] DIAGNOSTI RO, ROUTINE 9 C NIVA ECG CARDIOLOG W/LEAST ISTS INC 12 [facility] I&R ONLY HOSPITAL 14324 PATIENT [facility], DISCHARGE 9 FIRST [place] C DAY PHYS MANAGEMEN T 30 MIN/< RADIOLOGI 43858 RADIOLOGY LAIJanet C EXAM 9 KO H CHEST 2 ASSOCIATE VIEWS S PSC FRONTAL&L ATERAL SBSQ 55469 PATIENT [facility] 9 FIRST [place] C CARE/DAY PHYS 25 MINUTES SBSQ 50479 PATIENT [facility] 9 FIRST [place] C CARE/DAY PHYS 25 MINUTES SBSQ 30054 PATIENT [facility] 9 FIRST [place] C CARE/DAY PHYS 25 MINUTES SBSQ 19385 PATIENT [facility] 9 FIRST [place] C CARE/DAY PHYS 25 MINUTES INITIAL 63026 PATIENT [facility] 9 FIRST [place] CARE/DAY PHYS 50 MINUTES GROUND A0425 [employer] MILEAGE 9 CO FIRE CO FIRE PER PROTECTIO PROTECTIO STATUTE N DIST #1 N DIST #1 MILE AMBULANCE A0429 [facility] 9 CO FIRE CO FIRE BLS PROTECTIO PROTECTIO EMERGENCY N DIST #1 N DIST #1 TRANSPORT RADIOLOGI 37202 RADIOLOGY Olegario FOX 9 PALLAVI R EXAMINAMYRTLE ASSOCIATE ON CHEST S PSC [place] FRONTAL ECG 26995 DIAGNOSMYRTLE RO, ROUTINE 9 C NIVA ECG CARDIOLOG W/LEAST ISTS INC 12 LDS I&R ONLY AMB A0422 [employer] OXYGEN&O2 9 CO FIRE CO FIRE SUPPLIES PROTECTIO PROTECTIO LIFE N DIST #1 N DIST #1 SUSTAININ G SITUATION [facility] 25910 PATIENT [facility] [place] 9 FIRST [place] DAY PHYS MANAGEMEN T 30 MIN/< SBSQ 41639 PATIENT [place] [address] [place] CARE/DAY PHYS 25 MINUTES SBSQ 95089 PATIENT [facility] 9 FIRST [place] C CARE/DAY PHYS 25 MINUTES SBSQ 33252 PATIENT [facility] 9 FIRST [place] CARE/DAY PHYS 25 MINUTES ECG 55235 DIAGNOSMYRTLE WHITING ROUTINE 9 C , TATE J ECG CARDIOLOG W/[facility]AST [facility] INC 12 LDS I&R ONLY ECG 84143 DIAGNOSTI YOBANYANNOLD ROUTINE 9 C , TATE J ECG CARDIOLOG W/LEAST ISTS INC 12 LDS I&R ONLY RADIOLOGI 26471 RADIOLOGY Olegario STONE EXAM 9 CHEST 2 ASSOCIATE NATHANIEL BLACKMON S PSC A FRONTAL&L ATERAL RHYTHM 33298 EMERGENCY JUAN ANTONIO, ECG 1-3 9 CARE MIMI D LEADS PHYS INTERPRET [place] REPRT [place] GROUND A0425 [employer] [facility] 9 CO FIRE CO FIRE PER PROTECTIO PROTECTIO STATUTE N DIST #1 N DIST #1 MILE ALS A0398 [employer] ROUTINE 9 CO FIRE CO FIRE DISPOSABL PROTECTIO PROTECTIO E N DIST #1 N DIST #1 SUPPLIES INITIAL 57604 PATIENT [facility] 9 FIRST [place] CARE/DAY PHYS 50 MINUTES AMB A0427 [employer] 9 CO FIRE CO FIRE ALS PROTECTIO PROTECTIO EMERGENCY N DIST #1 N DIST #1 TRANSPORT LEVEL 1 OPHTH 31164 JIMBO ALEGRIA, MEDICAL 9 VISION CARLA M XM&EVAL COMPRE NEW PT 1/> VST BASIC 68855 [facility] METABOLIC 9 [facility] PANEL [facility] INC CALCIUM TOTAL LIPID 05670 [facility] PANEL 9 [facility] INC INC HEPATIC 65696 [facility] FUNCTION 9 [facility] PANEL INC INC HOSPITAL 28314 [facility] DISCHARGE 9 JR, J V JR, J V DAY MANAGEMEN T 30 MIN/< SBSQ 77168 [facility] 9 JR, J V JR, J V CARE/DAY 15 MINUTES SBSQ 46990 [facility] 9 JR, J V JR, J V CARE/DAY 25 MINUTES AMB A0422 [facility] OXYGEN&O2 9 AMBULANCE AMBULANCE SUPPLIES SERVICE SERVICE LIFE SUSTAININ G SITUATION AMB A0427 [facility] SERVICE 9 AMBULANCE AMBULANCE ALS SERVICE SERVICE EMERGENCY TRANSPORT LEVEL 1 RADIOLOGI 13884 Olegario MOLINA 9 MEDICAL CAROL EXAMINATI IMAGING ON CHEST ASSOCIATE SINGLE S VIEW FRONTAL INITIAL 35582 [facility] 9 JR, J V JR, J V CARE/DAY 50 MINUTES GROUND A0425 [facility] MILEA 9 AMBULANCE AMBULANCE PER SERVICE SERVICE STATUTE MILE ECG 95099 KENYATTA ADAMS, ROUTINE 9 [facility] [place] W/LEAST PROF SERV 12 LDS I&R ONLY OBSERVATI 99422 Claudia MITCHELL ON CARE 9 LUIS ALBERTO Melvin DISCHARGE PSC MANAGEMEN T INITIAL 61191 Claudia MITCHELL OBSERVATI 9 LUIS ALBERTO Melvin ON PSC CARE/DAY 50 MINUTES GROUND A0425 [facility]ULANCE AMBULANCE PER SERVICE SERVICE STATUTE MILE RADIOLOGI 02161 Olegario MOLINA 9 MEDICAL CAROL EXAMINATI IMAGING ON CHEST ASSOCIATE SINGLE S VIEW FRONTAL ECG 89460 KENYATTA JEFFREY ROUTINE [address] [facility] W/LEAST PROF SERV 12 LDS I&R ONLY AMB A0422 BILLY CERVANTES OXYGEN&O2 9 AMBULANCE AMBULANCE SUPPLIES SERVICE SERVICE LIFE SUSTAININ G SITUATION AMB A0427 [facility] 9 AMBULANCE AMBULANCE ALS SERVICE SERVICE EMERGENCY TRANSPORT LEVEL 1 AMB A0427 [facility] 9 AMBULANCE AMBULANCE ALS SERVICE SERVICE EMERGENCY TRANSPORT LEVEL 1 AMB A0422 BILLY CERVANTES OXYGEN&O2 9 AMBULANCE AMBULANCE SUPPLIES SERVICE SERVICE LIFE SUSTAININ G SITUATION RADIOLOGI 05857 Olegario REYES EXAM 9 MEDICAL GEORGE P CHEST 2 IMAGING VIEWS ASSOCIATE FRONTAL&L S ATERAL BLOOD 18950 KENYATTA YOU COUNT 9 [facility] COMPLETE INC INC AUTO&AUTO DIFRNTL WBC BLOOD 90158 KENYATTA YOU GASES ANY 9 [facility] INC INC COMBINATI ON PH PCO2 PO2 CO2 HCO3 COMPREHEN 10302 KENYATTA YOU SIVE 9 [facility] METABOLIC INC INC PANEL GROUND A0425 [facility]ULANCE AMBULANCE PER SERVICE SERVICE STATUTE MILE ECG 22085 KENYATTA YOU ROUTINE 8 [facility] ECG INC INC W/LEAST 12 LDS TRCG ONLY W/O I&R ECG 77445 KENYATTA ADAMS, ROUTINE 8 [facility] W/LEAST PROF SERV 12 LDS I&R ONLY PRESSURIZ 74831 KENYATTA YOU ED/NONPRE 8 [facility] SSURIZED INC INC INHALATIO N TREATMENT PRESSURIZ 41673 KENYATTA YOU ED/NONPRE 8 [facility] SSURIZED INC INC INHALATIO N TREATMENT NATRIURET 48086 KENYATTA YOU IC 8 [facility] PEPTIDE INC INC CREATINE 20946 KENYATTA YOU KINASE MB 8 [facility] FRACTION INC INC ONLY RHYTHM 96077 KENYATTA YOU ECG 1-3 8 [facility] LEADS INC INC TRACING ONLY W/O I&R BLOOD 59314 KENYATTA YOU COUNT 8 [facility] COMPLETE INC INC AUTO&[place] [address] KENYATTA YOU TROPONIN 8 [facility] QUANTITAT INC INC CARLOS IV NFUS 47399 KENYATTA YOU THER 8 [facility] PROPH/DX INC INC EA HR CREATINE 00304 KENYATTA YOU KINASE 8 [facility] TOTAL INC INC BASIC 51563 KENYATTA YOU METABOLIC 8 [facility] [place] [address] KENYATTA YOU THER 8 [facility] PROPH/DX INC INC 1ST >1 HR RADIOLOGI 26349 KENYATTA YOU C 8 [facility] EXAMINATI INC INC ON CHEST SINGLE VIEW FRONTAL GROUND A0425 LINDA LINDA MILEAGE 8 CO CO PER AMBULANCE AMBULANCE STATUTE SERVICE SERVICE MILE AMBULANCE A0429 LINDA LINDA SERVICE 8 CO CO BLS AMBULANCE AMBULANCE EMERGENCY SERVICE SERVICE TRANSPORT S A0382 LINDA LINDA ROUTINE 8 CO CO DISPOSABL AMBULANCE AMBULANCE E SERVICE SERVICE [facility] 03689 [facility] DISCHARGE 8 Jamee SANTOYO JR, J V DAY MANAGEMEN T 30 MIN/< SBSQ 27515 [facility] 8 Jamee SANTOYO JR, J V CARE/DAY 15 MINUTES SBSQ 56112 [facility] 8 Jamee SANTOYO JR, J V CARE/DAY 15 MINUTES SBSQ [address] E CARE/DAY EMD 25 MINUTES SBSQ [address] E CARE/DAY EMD 25 MINUTES SBSQ [address] E CARE/DAY EMD 25 MINUTES AMB A0422 BILLY CERVANTES OXYGEN&O2 8 AMBULANCE AMBULANCE SUPPLIES SERVICE SERVICE LIFE SUSTAININ G SITUATION AMB A0427 BILLY BILLY SERVICE 8 AMBULANCE AMBULANCE ALS SERVICE SERVICE EMERGENCY TRANSPORT LEVEL 1 INITIAL 03715 [facility] 8 ALPINE MARCELINA E CARE/DAY EMD 50 MINUTES GROUND A0425 BILLY CERVANTES MILEAGE 8 AMBULANCE AMBULANCE PER SERVICE SERVICE STATUTE MILE RADIOLOGI 51336 Olegario REYES EXAM 8 MEDICAL GEORGE P CHEST 2 IMAGING VIEWS ASSOCIATE FRONTAL&[place] [address] [facility] TROPONIN [address] [place] [address] QUANTITAT [facility] CARLOS BLOOD 09719 [facility] COUNT [address] [place] [address] COMPLETE [facility] AUTO&AUTO DIFRNTL WBC THER 33876 [facility] PROPH/DX [address] [place] [address] NJX EA [facility] SEQL IV PUSH SBST/DRUG FIBRIN 87653 [facility] DGRADJ [address] [place] [address] PRODUCTS [facility] D-DIMER ULTRASENS ITIVE THER 59080 [facility] PROPH/DX [address] [place] [address] NJX IV [facility] PUSH 1ST SBST/DRUG GROUND A0425 LINDA LINDA MILEAGE 8 CO CO PER AMBULANCE AMBULANCE STATUTE SERVICE SERVICE MILE AMBULANCE A0429 LINDA LINDA SERVICE 8 CO CO BLS AMBULANCE AMBULANCE EMERGENCY SERVICE SERVICE TRANSPORT ECG 68906 [facility] ROUTINE [address] [place] [address] ECG [facility] W/LEAST 12 LDS TRCG ONLY W/O I&R RADIOLOGI 93337 RADIOLOGY Olegario GREENFIELDINAMYRTLE ASSOCIATE ON CHEST S PSC SINGLE VIEW FRONTAL AMB A0422 LINDA LINDA OXYGEN&O2 8 CO CO SUPPLIES AMBULANCE AMBULANCE LIFE SERVICE SERVICE SUSTAININ G SITUATION BASIC 37506 [facility] METABOLIC [address] [place] [address] PANEL [facility] 26826 PATIENT KLAUDIA, DISCHARGE 8 FIRST CASSANDRA G DAY PHYS MANAGEMEN T 30 MIN/< SBSQ 06420 PATIENT [facility] 8 FIRST [place] CARE/DAY PHYS 15 MINUTES DOPPLER 56646 CARDIOLOG GARCIA, ECHOCARD 8 Y SHELBI D PULSE ASSOCIATE WAVE S W/SPECTRA L DISPLAY ECHO 22671 CARDIOLOG GARCIA, TRANSTHOR 8 Y SHELBI D AC R-T 2D ASSOCIATE W/WO S M-MODE REC COMP INITIAL 11398 PATIENT [facility] 8 FIRST [place] CARE/DAY PHYS 50 MINUTES BLS A0382 LINDA LINDA ROUTINE 8 CO CO DISPOSABL AMBULANCE AMBULANCE E SERVICE SERVICE SUPPLIES GROUND A0425 LINDA LINDA MILEAGE 8 CO CO PER AMBULANCE AMBULANCE STATUTE SERVICE SERVICE MILE AMBULANCE A0429 LINDA LINDA SERVICE 8 CO CO BLS AMBULANCE AMBULANCE EMERGENCY SERVICE SERVICE TRANSPORT ECG 88394 DEJON ROJAS, ROUTINE 8 C FAUSTINO ECG CARDIOLOG W/LEAST ISTS INC 12 LDS I&R ONLY RADIOLOGI 13948 RADIOLOGY NEILS, C EXAM 8 NOEMY W CHEST 2 ASSOCIATE VIEWS S PSC FRONTAL&L ATERAL RADIOLOGI [address] [facility] [address] [place] EXAM 8 [facility] CHEST 2 EAST EAST VIEWS FRONTAL&L ATERAL BLOOD 01836 [facility] COUNT [address] [place] [address] COMPLETE [facility] [place] [address] [facility] TROPONIN [address] [place] [address] QUANTITAT [facility] CARLOS ECG 00231 DEJON WHITING ROUTINE 8 C , TATE J ECG CARDIOLOG W/LEAST ISTS INC 12 LDS I&R ONLY AMBULANCE A0429 LINDA LINDA SERVICE 8 CO CO BLS AMBULANCE AMBULANCE EMERGENCY SERVICE SERVICE TRANSPORT ECG [address] KE ROUTINE 8 [facility] ECG [facility] W/LEAST 12 LDS TRCG ONLY W/O I&R GROUND A0425 LINDA LINDA MILEAGE 8 CO CO PER AMBULANCE AMBULANCE STATUTE SERVICE SERVICE MILE THER [address] [facility] [address] [place] PROPH/DX [address] [place] [address] NJX IV [facility] EAST PUSH 1ST SBST/DRUG BASIC [address] LU METABOLIC 8 [facility] PANEL EAST EAST CALCIUM TOTAL BASIC 81983 PATIENT KALFAS, METABOLIC 8 FIRST SALINA C PANEL PHYS CALCIUM TOTAL LIPID 17131 PATIENT KALFAS, PANEL 8 [facility] [place] C PHYS ECG 75713 KENYATTA ADAMS, ROUTINE 8 [facility] [place] W/LEAST PROF SERV 12 LDS I&R ONLY CREATINE 68883 KENYATTA YOU KINASE MB 8 [facility] FRACTION INC INC ONLY PRESSURIZ 32664 KENYATTA YOU ED/NONPRE 8 [facility] SSURIZED [place] [address] KENYATTA YOU TROPONIN 8 [facility] QUANTITAT INC INC CARLOS BLOOD 16589 KENYATTA YOU COUNT 8 [facility] COMPLETE INC INC AUTO&AUTO DIFRNTL WBC BASIC 29133 KENYATTA YOU METABOLIC 8 [facility] PANEL INC INC CALCIUM TOTAL RADIOLOGI 35573 Olegario REYES 8 PRADEEP Phillips EXAMINATI IMAGING ON CHEST ASSOCIATE SINGLE S VIEW FRONTAL GROUND A0425 LINDA LINDA MILEAGE 8 CO CO PER AMBULANCE AMBULANCE STATUTE SERVICE SERVICE MILE BLS A0382 LINDA LINDA ROUTINE 8 CO CO DISPOSABL AMBULANCE AMBULANCE E SERVICE SERVICE SUPPLIES ECG 61196 KENYATTA YOU ROUTINE 8 [facility] ECG INC INC W/LEAST 12 LDS TRCG ONLY W/O I&R AMBULANCE A0429 LINDA LINDA SERVICE 8 CO CO BLS AMBULANCE AMBULANCE EMERGENCY SERVICE SERVICE TRANSPORT CREATINE 96780 KENYATTA YOU KINASE 8 [facility] TOTAL INC INC HOSPITAL 57912 [facility] DISCHARGE 8 Jamee SANTOYO JR, J V DAY MANAGEMEN T 30 MIN/< SBSQ 46807 [facility] 8 Jamee SANTOYO JR, J V CARE/DAY 25 MINUTES INITIAL 26671 [facility] 8 Jamee SANTOYO JR, J V CARE/DAY 50 MINUTES INITIAL 58064 URRUTIA URRUTIA OBSERVATI 8 JR, J V JR, J V ON CARE/DAY 50 MINUTES RADIOLOGI 08689 Olegario REYES EXAM 8 MEDICAL GEORGE P CHEST 2 IMAGING VIEWS ASSOCIATE FRONTAL&L S ATERAL ECG 04452 KENYATTA JEFFREY ROUTINE 8 [facility] W/LEAST PROF SERV 12 LDS I&R ONLY BLS A0382 LINDA LINDA ROUTINE 8 CO CO DISPOSABL AMBULANCE AMBULANCE E SERVICE SERVICE SUPPLIES GROUND A0425 LINDA LINDA MILEAGE 8 CO CO PER AMBULANCE AMBULANCE STATUTE SERVICE SERVICE MILE AMBULANCE A0429 LINDA LINDA SERVICE 8 CO CO BLS AMBULANCE AMBULANCE EMERGENCY SERVICE SERVICE [facility] 04318 EMILY IDAZ, DISCHARGE 8 [facility] E DAY EMD MANAGEMEN T 30 MIN/< RADIOLOGI 21776 Olegario REYES EXAM 8 MEDICAL GEORGE P CHEST 2 IMAGING VIEWS ASSOCIATE FRONTAL&L S ATERAL SBSQ [address] E CARE/DAY EMD 25 MINUTES SBSQ [address] E CARE/DAY EMD 25 MINUTES ECG 18576 KENYATTA DIAZ, ROUTINE 8 [facility] W/LEAST PROF SERV 12 LDS I&R ONLY SBSQ [address] E CARE/DAY EMD 25 MINUTES SBSQ [address] E CARE/DAY EMD 25 MINUTES ECG 67183 KENYATTA DIAZ, ROUTINE 8 [facility] W/LEAST PROF SERV 12 LDS I&R ONLY RADIOLOGI 23457 Olegario MOLINA 8 MEDICAL CAROL EXAMINATI IMAGING ON CHEST ASSOCIATE SINGLE S VIEW FRONTAL AMBULANCE A0429 LINDA LINDA SERVICE 8 CO CO BLS AMBULANCE AMBULANCE EMERGENCY SERVICE SERVICE TRANSPORT GROUND A0425 LINDA LINDA MILEAGE 8 CO CO PER AMBULANCE AMBULANCE STATUTE SERVICE SERVICE MILE BLS A0382 LINDA MCKEON ROUTINE 8 CO CO DISPOSABL AMBULANCE AMBULANCE E SERVICE SERVICE SUPPLIES INITIAL [address] E CARE/DAY EMD 50 MINUTES CLOSED 33.26 Carol [PERCUTAN Russ EOUS] [NEEDLE] BIOPSY OF LUNG Encounters Encounter Start End Date Code Location Performer Type Date [facility] KENYATTA Biggs 7 7 [facility] OUTPATIEN INC T EMERGENCY 53131 KENYATTA 7 7 [facility] INC T VISIT HIGH/URGE NT SEVERITY EMERGENCY 90310 CURTIS GARCIA DEPT 7 [address] [facility] [facility] HIGH SEVERITY& THREAT [facility] KENYATTA Biggs 7 7 [facility] INPATIENT INC EMERGENCY 99149 CURTIS ARAUZ DEPT 7 7 PHYSICIAN VISIT [facility] HIGH SEVERITY& THREAT [facility] KENYATTA - 6 6 [facility] OUTPATIEN [facility] EMERGENCY 28676 KENYATTA DEPT 6 6 [facility] VISIT INC HIGH SEVERITY& THREAT [facility] KENYATTA - 6 6 [facility] OUTPATIEN [facility] T EMERGENCY 61299 KENYATTA 6 6 [facility] DEPARTMEN INC T VISIT HIGH/URGE NT SEVERITY HOSPITAL KENYATTA - 6 6 [facility] OUTPATIEN INC EMERGENCY 52990 KENYATTA DEPT 6 6 [facility] VISIT INC HIGH SEVERITY& THREAT [facility] OFFICE 19439 [facility] 6 6 NATHANIEL Nova T VISIT MED CTR 15 MINUTES OFFICE 16860 [facility] OUTPATIEN 6 6 NATHANIEL T VISIT 25 PHYSICIAN MINUTES [facility] ST - 6 6 NATHANIEL OUTPATIEN [facility] OFFICE [facility]1283 [facility]AYJAY NIV OUTPATIEN 6 6 NATHANIEL T VISIT 25 PHYSICIAN MINUTES S OFFICE [address]11 [facility] OUTPATIEN 6 6 NATHANIEL T VISIT 25 PHYSICIAN MINUTES S OFFICE 73372 [facility] OUTPATIEN 6 6 NATHANIEL YEAR LAT T VISIT 15 PHYSICIAN MINUTES S OFFICE 16103 [facility] OUTPATIEN 5 5 NATHANIEL ALDAIR T VISIT [address] - 5 5 [facility] - 4 4 NATHANIEL OUTPATIEN [facility] - 4 4 [facility] - 4 4 NATHANIEL INPATIENT [facility] - 4 4 [facility] - 3 3 NATHANIEL OUTPATIEN MED CTR T MANAGER ER ST OFFICE 87375 [facility] OUT[facility] 3 3 N JORDYN N JORDYN T VISIT MINUTES [facility] CHILDRENS - OTHER 3 3 [facility] MEDICAL C OFFICE 07987 SHO BERKOWITZ PRA OUTPATIEN 3 3 T VISIT 15 MINUTES OFFICE 09141 OUTPATI 3 3 NATHANIEL T VISIT 5 FT [facility] ST - 3 3 NATHANIEL OUTPATISAINT ELIZABETH [facility] OFFICE 22613 MAYNOR MCGUIRE OUTPATIEN 3 3 JAM JAM T VISIT 25 MINUTES [facility] ST - 3 3 NATHANIEL OUTPATIEN MEDICAL [facility] OFFICE 03699 [facility] OUTPATIEN 3 3 YEAR LAT YEAR LAT T VISIT 25 MINUTES HOSPITAL CHILDRENS - OTHER 3 3 [facility] OFFICE 00087 LEANDRA LEANDRA OUTPATIEN 3 3 N JORDYN N JORDYN T VISIT [address] - 3 3 NATHANIEL OUTPATIEN FT T [facility] ST - 3 3 NATHANIEL OUTPATIEN [facility] OFFICE [address] ST OUTPATIEN 3 3 NATHANIEL T VISIT 5 FT MINUTES [facility] OFFICE 87572 LEANDRA LEANDRA OUTPATIEN 3 3 N JORDYN N JORDYN T VISIT 15 MINUTES OFFICE 77512 [facility] OUT[facility] 3 3 OWSKI M TAJSKI M T VISIT 15 MINUTES OFFICE 46860 LEANDRA LEANDRA OUTPATIEN 3 3 N JORDYN N JORDYN T VISIT 25 MINUTES OFFICE 62930 LEANDRA LEANDRA OUTPATIEN 3 3 N JORDYN N JORDYN T VISIT [address] - 3 3 NATHANIEL OUTPATIEN FT [facility] OFFICE 37333 BROWN-PUR BROWN-[facility]UR OUTPATIEN 3 3 YEAR LAT YEAR LAT T NEW 30 MINUTES OFFICE 77366 LEANDRA LEANDRA OUTPATIEN 3 3 N JORDYN N JORDYN T VISIT 25 MINUTES OFFICE 06415 LEANDRA LEANDRA OUTPATIEN 3 3 N JORDYN N JORDYN T VISIT 25 MINUTES OFFICE 81622 LEANDRA LEANDRA OUTPATIEN 3 3 N JORDYN N JORDYN T VISIT [address] [facility] 3 3 NATHANIEL SENTHIL ION NEW/ESTAB PHYSICIAN PATIENT S [address] - 3 3 NATHANIEL OUTPATIEN FT T [facility]OB[facility] OFFICE [address]22 ST OUTPATIEN 3 3 NATHANIEL T VISIT 5 FT MINUTES [facility] OFFICE 45930 SHO SHAH OUTPATIEN 3 3 T NEW 45 MINUTES OFFICE 61693 LEANDRA KOKELMAN OUTPATIEN 3 3 N JORDYN N JORDYN T NEW 60 MINUTES OFFICE 63437 [facility] OUTPATIEN 3 3 JR. JONNY FULLER T VISIT 15 MINUTES HOSPITAL KENYATTA - 3 3 [facility] OUTPATIEN INC T OFFICE 67820 BARBRA JEFFREY OUTPATIEN 3 3 CHRYSTAL JARRELL T VISIT 15 MINUTES OFFICE 36711 [facility] OUTPATIEN 3 3 JR. JONNY FRANCOIS DEN T NEW 45 MINUTES Inpatient IMP Kenyatta REBELSON ([place]) 3 09:16 3 15:22 [facility] KENYATTA - 3 3 [facility] OUTPATIEN [facility] T HOSPITAL KENYATTA - 3 3 [facility] OUTPATIEN INC T Inpatient IMP Kenyatta Besson ([place]) 3 10:40 3 10:15 [facility] KENYATTA - 3 3 [facility] INPATIENT INC OFFICE 02296 MCCHADDMIMercedez MASESYE OUTPATIEN 2 2 JR CHRYSTAL JARRELL T VISIT 15 MINUTES EMERGENCY 03965 NILSA CHAVEZ DEPT 2 2 EMERGENCY VISIT SERVICES HIGH SEVERITY& THREAT [facility] KENYATTA - 2 2 [facility] OUTPATIEN INC T OFFICE 81137 WHANG NIDA WHANG NIDA CONSULTAT 2 2 ION NEW/ESTAB PATIENT 60 MIN OFFICE 06109 BESSON BESSON OUTPATIEN 2 2 MAURO MAURO T VISIT 25 MINUTES HOSPITAL KENYATTA - 2 2 [facility] OUTPATIEN [facility] OFFICE 18772 BESSON BESSON OUTPATIEN 2 2 MAURO MAURO T VISIT 25 MINUTES HOSPITAL KENYATTA - 2 2 [facility] OUTPATIEN [facility] OFFICE 73189 BESSON BESSON OUTPATIEN 2 2 MAURO MAURO T VISIT 15 MINUTES HOSPITAL KENYATTA - 2 2 [facility] OUTPATIEN [facility] OFFICE 54962 BESSON BESSON OUTPATIEN 2 2 MAURO MAURO T VISIT 25 MINUTES OFFICE 18484 MCKEMIE MCKEMIE OUTPATIEN 2 2 JR CHRYSTAL JR CHRYSTAL T VISIT 15 MINUTES HOSPITAL K[facility]YATTA - 2 2 [facility] OUTPATIEN [facility] KENYATTA - 2 2 [facility]PAT[facility] KENYATTA - 1 1 [facility] INPATIENT [facility] EMERGENCY 09673 HEBER BUCK DEPT 1 1 [facility] VISIT HIGH SEVERITY& THREAT [facility] KENYATTA - 1 1 [facility] 27117 KENYATTA 1 1 [facility] VISIT LOW/MODER SEVERITY EMERGENCY 44943 NILSA SILVERIO DEPT 1 1 EMERGENCY III CHRYSTAL VISIT SERVICES HIGH SEVERITY& THREAT [facility] EMERGENCY 11929 EMERGENCY JEAN-CLAUDE DEPT 1 1 CARE CESAR VISIT PHYS HIGH NORTHERN SEVERITY& THREAT [facility] ST - 1 1 NATHANIEL INPATIENT [facility] - 1 1 NATHANIEL OUTPATIEN [facility] EMERGENCY 77107 DEPT 1 1 NATHANIEL VISIT FT HIGH BOBBY SEVERITY& THREAT [facility] OFFICE 85146 ST LACEY OUTPATIEN 1 1 NATHANIEL NIDA T VISIT 25 PHYSICIAN MINUTES S EMERGENCY 98680 EMERGENCY JUAN ANTONIO DEPT 1 1 CARE MARCIN VISIT PHYS HIGH NORTHERN SEVERITY& THREAT [facility] OFFICE 65171 MOJGAN HERRMANNPATIEN 0 0 NATHANIEL ALDEN T VISIT 25 PHYSICIAN MINUTES S OFFICE 75[address] [facility] L[facility] OUTPATIEN 0 0 NATHANIEL ALDEN T VISIT 15 PHYSICIAN MINUTES S OFFICE 78507 MOJGAN HERRMANNPATIEN 0 0 NATHANIEL ALDEN T VISIT 25 PHYSICIAN MINUTES S OFFICE 45655 [facility] MIN[facility]ES OFFICE 75270 PATIENT VENKATESH LACEY 9 9 FIRST ALDEN T VISIT PHYS 25 MINUTES EMERGENCY 96320 EMERGENCY MELO DEPT 9 9 CARE AGUILAR U VISIT PHYS HIGH [place] SEVERITY& [place] THREAT [facility] [address] INPATIENT [facility] OFFICE 64189 PATIENT VENKATESH LACEY 9 9 FIRST [place]DEN T VISIT PHYS 25 MINUTES EMERGENCY 91753 EMERGENCY SEJAL DEPT 9 9 CARE ERNST VISIT PHYS HIGH [place]THER[place] SEVERITY& [place] THREAT [facility] EMERGENCY 36480 EMERGENCY JUAN ANTONIO, DEPT 9 9 CARE MIMI D VISIT PHYS HIGH [place] SEVERITY& [place] THREAT [facility] KENYATTA - 9 9 [facility]EN [facility] KENYATTA - 9 9 [facility] INPATIENT [facility] EMERGENCY 45675 NILSA BUCK DEPT 9 9 EMERGENCY CASSANDRA S VISIT SERVICES HIGH SEVERITY& ASSOCIATE THREAT S [facility] KENYATTA - 9 9 [facility] INPATIENT [facility] EMERGENCY 44320 NILSA BUCK, DEPT 9 9 EMERGENCY CASSANDRA S VISIT SERVICES HIGH SEVERITY& ASSOCIATE THREAT S [facility] OFFICE 90653 GHADA U[facility]UTIA [facility] 9 Jamee SANTOYO JR, J V T VISIT 15 MINUTES OFFICE 51118 GHADA URRUTIA [facility] 9 9 Jamee SANTOYO JR, J V T VISIT 15 MINUTES EMERGENCY 81959 KENYATTA 9 9 [facility] VISIT MODERATE SEVERITY HOSPITAL KENYATTA - 9 9 [facility] EMER[facility]ENC[facility] 61941 CAMILO MERCADO, DEPT 9 9 NATIONAL KRYSTAL VISIT CORPORATI O HIGH ON SEVERITY& THREAT [facility] KENYATTA - 8 8 [facility] EM[facility]GENC[facility] 46496 [place] 8 8 [facility] VISIT HIGH/URGE NT SEVERITY HOSPITAL [place] [facility] 8 8 [facility] INPATIENT [facility] [place] [id number] 8 [facility] EMERGENCY 51557 EMERGENCY [place]OR[place] DEPT 8 8 CARE EDWARD L VISIT PHYS HIGH [place] SE[place]& [place] TH[place] [facility] EMERGENCY 46417 [facility] 8 8 [facility] VISIT HIGH/URGE NT SEVERITY EMERGENCY 53490 EMERGENCY TYRELL DEPT 8 8 CARE CASSANRDA VISIT PHYS HIGH [place] SE[place]& [place] [facility] EMERGENCY 21213 EMERGENCY MORALES DEPT 8 8 CARE RADAMES L VISIT PHYS HIGH [place]& [place] [facility] EMERGENCY 21641 [facility]PT 8 8 HOSPITAL VISIT [facility] HIGH SEVERITY& THREAT [facility] [place] [id number] 8 [facility]ICE 50824 [facility] FIRST CASSANDRA G T NEW 45 PHYS MINUTES HOSPITAL [place] - 8 8 [facility] EMERGENCY 29336 [place] 8 8 [facility] VISIT MODERATE SEVERITY EMERGENCY 25640 [place], 8 8 [facility] T VISIT PROF SERV LOW/MODER SEVERITY EMERGENCY 86360 [place] 8 8 [facility] T [facility]IT LIMITED/M INOR [facility] [place] - 8 8 [facility] [place] [facility] 8 8 [facility] [place] [facility] 8 8 [facility] INPATIENT INC
--- OUTSIDE RECORDS SUMMARY | 2017-03-12 13:01 | External Medical Summary Rpt ---
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 J AD 00 10 01 01 60 30 SD 14 KA Ac VA 17 -1 -2 .0 LG 21 LF ti IR 30 3- 8- 00 RE 44 ve 69 20 20 EN 3 [address] 0- 0 #4 NA 50 28 C 4 DI SK US 00 12 01 01 45 30 SD 14 SC Ac 59 -1 -2 .0 LG 34 [facility] ti 10 5- 8- 00 RE 49 CK ve 34 20 20 EN 9 90 09 10 BR 5 #4 IA 28 N 4 SE 59 01 01 00 15 30 SD 14 SC Ac RT 76 -1 -2 .0 LG 40 [facility] ti RA 24 1- 8- 00 RE 01 CK ve LI 91 20 20 EN 5 NE 00 10 10 BR 5 #4 IA HC 28 N L 4 10 0 MG TA BL ET 59 10 01 03 8. 16 SD 14 SC Ac 31 -2 -2 50 LG 23 [facility] ti 00 0- 8- 0 RE 42 CK ve 57 20 20 EN 5 92 09 10 BR 0 #4 IA 28 N 4 59 10 12 02 8. 16 SD 14 SC Ac 31 -2 -3 50 [...] 20 EN 1 1. [address] 25 4 #4 NA 28 C MG 4 /3 ML SO JOANN TI ON SE 59 10 12 01 15 30 WA 14 KA Ac RT 76 -1 -1 .0 LG 21 LF ti RA 24 3- 7- 00 RE 46 ve LI 91 20 20 EN 0 NE [address] 5 #4 NA HC 28 C L 4 10 0 MG TA BL ET TH 50 10 12 01 60 30 WA 14 KA Ac EO 11 -1 -1 .0 LG 21 LF ti PH 10 3- 7- 00 RE 44 ve YL 48 20 20 EN 6 LI [address] NE 2 #4 NA 28 C ER 4 20 0 MG TA BL ET NA 68 10 12 01 60 30 WA 14 KA Ac CO 46 -1 -1 .0 LG 21 LF ti OX 20 3- 7- 00 RE 44 ve EN 19 20 20 EN [address] 50 5 #4 NA 0 28 C MG 4 TA BL ET CO 00 12 12 00 30 12 WA 14 SC Ac ED 59 -0 -1 .0 LG 32 [facility] ti NI 15 6- 7- 00 RE 45 FE ve SO 44 20 20 EN 0 R NE [address] 5 #4 CH 10 28 AE 4 L MG G TA BL ET AL 00 12 12 00 36 30 WA 14 SC Ac BU 48 -0 -1 0. LG 32 [facility] ti TE 79 6- 7- 00 RE 44 FE ve RO 50 20 20 0 EN 5 R L [address] ALEJANDRO 0 #4 CH L 28 AE 2. 4 L 5 G MG /3 ML SO LN 00 12 12 00 14 25 WA 14 SC Ac 59 -0 -1 .6 LG 32 [facility] ti 70 6- 7- 99 RE 44 FE ve 01 20 20 EN 9 R [address] 4 #4 CH 28 AE 4 L G AV 00 12 12 00 7. 7 WA 14 SC Ac EL 08 -0 -1 00 LG 32 [facility] ti OX 51 6- 7- 0 RE 44 FE ve 73 20 20 EN 7 R [address] 0 1 #4 CH MG 28 AE 4 L TA G BL ET 00 12 12 00 60 30 WA 14 SC Ac 18 -0 -1 .0 LG 32 [facility] ti 24 6- 7- 00 RE 44 FE ve 03 20 20 EN 6 R [address] 0 #4 CH 28 AE 4 L G IP 00 12 12 00 30 30 WA 14 SC Ac RA 48 -0 -1 0. LG 32 [facility] ti TR 79 6- 7- 00 RE 45 FE ve OP 80 20 20 0 EN 1 R IU [address] M 0 #4 CH BR 28 AE 4 L 0. G 02 % SO LN CO 00 10 12 01 12 3 WA 14 SC Ac OM 60 -2 -0 0. LG 23 [facility] ti ET 31 0- 3- 00 RE 42 CK ve [facility] 58 20 20 0 EN 8 ZI 85 09 09 BR NE 8 #4 IA 28 N VC 4 -C OD EI NE SY RU P 59 10 12 01 8. 16 SD 14 SC Ac 31 -2 -0 50 LG 23 [facility] ti 00 0- 3- 0 RE 42 CK ve 57 20 20 EN 5 92 09 09 BR 0 #4 IA 28 N 4 59 10 11 00 8. 16 SD 14 SC Ac 31 -2 -0 50 LG 23 [facility] ti 00 0- 5- 0 RE 42 CK ve 57 20 20 EN 5 92 09 09 BR 0 #4 IA 28 N 4 CO 00 10 11 00 12 3 WA 14 KA Ac OM 60 -2 -0 0. LG 23 LF ti ET 31 0- 5- 00 RE 42 ve [facility] 58 20 20 0 EN 8 ZI [address] 8 #4 NA 28 C VC 4 -C OD EI NE SY RU P IP 00 10 10 00 30 30 WA 14 KA Ac RA 48 -1 -2 0. LG 21 LF ti TR 79 3- 2- 00 RE 43 ve OP 80 20 20 0 EN 9 IU [address] M 0 #4 NA BR 28 C 4 0. 02 % SO LN CO 00 10 10 00 40 12 WA 14 KA Ac ED 59 -1 -2 .0 LG 21 LF ti NI 15 3- 2- 00 RE 45 ve SO 44 20 20 EN 3 NE [address] 5 #4 NA 10 28 C 4 MG TA BL ET TH 50 10 10 00 60 30 WA 14 KA Ac EO 11 -1 -2 .0 LG 21 LF ti PH 10 3- 2- 00 RE 44 ve YL 48 20 20 EN 6 LI [address] NE 2 #4 NA 28 C ER 4 20 0 MG TA BL ET SE 59 10 10 00 15 30 WA 14 KA Ac RT 76 -1 -2 .0 LG 21 LF ti RA 24 3- 2- 00 RE 46 ve LI 91 20 20 EN 0 NE [address] 5 #4 NA HC 28 C L 4 10 0 MG TA BL ET NA 68 10 10 00 60 30 WA 14 KA Ac CO 46 -1 -2 .0 LG 21 LF ti OX 20 3- 2- 00 RE 44 ve EN 19 20 20 EN [address] 50 5 #4 NA 0 28 C MG 4 TA BL ET XO 63 10 10 00 72 30 WA 14 KA Ac PE 40 -1 -2 .0 LG 21 LF ti NE 20 3- 2- 00 RE 44 ve X 51 20 20 EN 1 1. [address] 25 4 #4 NA 28 C MG 4 /3 ML SO JOANN TI ON AD 00 10 10 00 60 30 WA 14 KA Ac VA 17 -1 -2 .0 LG 21 LF ti IR 30 3- 2- 00 RE 44 ve 69 20 20 EN 3 [address] 0- 0 #4 NA 50 28 C 4 DI SK US 00 10 10 00 30 7 WA 14 KA Ac 59 -1 -2 .0 LG 21 LF ti 10 3- 2- 00 RE 44 ve 34 20 20 EN [address] 5 #4 NA 28 C 4 AV 00 10 10 00 3. 3 WA 14 KA Ac EL 08 -1 -2 00 LG 21 LF ti OX 51 3- 2- 0 RE 43 ve 73 20 20 EN 4 [address] 0 1 #4 NA MG 28 C 4 TA BL ET SE 59 09 09 00 15 30 WA 14 KA Ac RT 76 -0 -2 .0 LG 14 LF ti RA 24 9- 4- 00 RE 27 ve LI 91 20 20 EN 4 NE [address] 5 #4 NA HC 28 C L 4 10 0 MG TA BL ET 00 09 09 00 30 7 WA 14 KA Ac 59 -0 -2 .0 LG 14 LF ti 10 9- 4- 00 RE 26 ve 34 20 20 EN [address] 5 #4 NA 28 C 4 CO 00 09 09 00 12 3 WA 14 KA Ac OM 60 -0 -2 0. LG 14 LF ti ET 31 9- 4- 00 RE 27 ve [facility] 58 20 20 0 EN 0 ZI [address] 8 #4 NA 28 C VC 4 -C OD EI NE SY RU P CO 00 09 09 00 20 15 WA 14 KA Ac ED 59 -0 -2 .0 LG 14 LF ti NI 15 9- 4- 00 RE 26 ve SO 44 20 20 EN 7 NE [address] 5 #4 NA 20 28 C 4 MG TA BL ET NA 68 09 09 00 60 30 WA 14 KA Ac CO 46 -0 -2 .0 LG 14 LF ti OX 20 9- 4- 00 RE 27 ve EN 19 20 20 EN [address] 50 5 #4 NA 0 28 C MG 4 TA BL ET 59 09 09 00 8. 16 WA 14 KA Ac 31 -0 -2 50 LG 14 LF ti 00 9- 4- 0 RE 27 ve 57 20 20 EN [address] 0 #4 NA 28 C 4 AD 00 09 09 00 60 30 WA 14 KA Ac VA 17 -0 -2 .0 LG 14 LF ti IR 30 9- 4- 00 RE 27 ve 69 20 20 EN 1 [address] 0- 0 #4 NA 50 28 C 4 DI SK US CO 00 08 08 00 30 30 CL 19 CA Ac AV 09 -2 -[address] ti 37 1- 7- 00 IC 71 IL ve TA 20 20 20 LO TI 29 09 09 PH N 8 AR JR SO MA J DI CY V UM 40 MG TA B CO 00 08 08 00 6. 25 CL [...] 00 30 15 CL 19 CA Ac CO 74 -0 -[address] [...] V DI #3 SK 93 US 8 CO 00 09 07 06 6. 25 RI 76 SC Ac OV 08 -1 -3 70 TE 48 [facility] ti EN 51 9- 0- 0 64 FE ve TI 13 20 20 AI R L [address] HF 1 PH CH A AR AE [...] 31 7- 6- [address] 04 20 20 AI LO N 80 09 09 D HC 1 PH JR L AR J 50 M V 0 #3 MG 93 8 TA BL ET CO 00 09 07 05 6. 25 RI 76 SC Ac OV 08 -1 -0 70 TE 48 [facility] ti EN 51 9- 2- 0 64 FE ve TI 13 20 20 AI R L [address] HF 1 PH CH A AR AE 90 M L #3 G MC 93 G 8 IN [facility] LE R CO 00 09 06 04 6. 25 RI 76 SC Ac OV 08 -1 -0 70 TE 48 [facility] ti EN 51 9- 4- 0 64 FE ve TI 13 20 20 AI R L [address] HF 1 PH CH A AR AE 90 M L #3 G MC 93 G 8 IN [facility] LE R AD 00 07 06 04 60 30 RI 76 SC Ac VA 17 -0 -0 .0 TE 48 [facility] ti IR 30 7- 4- 00 63 FE ve 69 20 20 AI R 25 [address] 0- 0 PH CH 50 AR AE M L DI #3 G SK 93 US 8 AD 00 07 05 03 60 30 RI 76 SC Ac VA 17 -0 -2 .0 TE 48 [facility] ti IR 30 7- 1- 00 63 FE ve 69 20 20 AI R 25 [address] 0- 0 PH CH 50 AR AE M L DI #3 G SK 93 US 8 CO 00 09 05 03 6. 25 RI 76 SC Ac OV 08 -1 -2 70 TE 48 [facility] ti EN 51 9- 1- 0 64 FE ve TI 13 20 20 AI R L [address] HF 1 PH CH A AR AE [...] 34 9- 1- 00 42 S ve CO [address] ED 31 [...] AI R 25 [address] 0- 0 PH CH 50 AR AE M L DI #3 G SK 93 US 8 CO 00 09 04 02 6. 25 RI 76 SC Ac OV 08 -1 -0 70 TE 48 [facility] ti EN 51 9- 9- 0 64 FE ve TI 13 20 20 AI R L [address] HF 1 PH CH A AR AE [...] AI R 25 [address] 0- 0 PH CH 50 AR AE M L DI #3 G SK 93 US 8 CO 00 09 02 01 6. 25 RI 76 SC Ac OV 08 -1 -1 70 TE 48 [facility] ti EN 51 9- 2- 0 64 FE ve TI 13 20 20 AI R L [address] HF 1 PH CH A AR AE [...] 34 6- 2- 00 76 N ve CO 59 20 20 AI BA ED 31 [...] #3 O 93 TA 8 BL ET CO 00 09 01 00 6. 25 RI 76 SC Ac OV 08 -1 -1 70 TE 48 [facility] ti EN 51 9- 5- 0 64 FE ve TI 13 20 20 AI R L [address] HF 1 PH CH A AR AE 90 M L #3 G MC 93 G 8 IN [facility] LE R AD 00 07 01 00 60 30 RI 76 SC Ac VA 17 -0 -1 .0 TE 48 [facility] ti IR 30 7- 5- 00 63 FE ve 69 20 20 AI R 25 [address] 0- 0 PH CH 50 AR AE [...] AR R [address] 0- 0 CY CH 50 AE #5 L DI 43 G SK 7 US CO 00 09 10 01 6. 25 CV 46 SC Ac OV 08 -1 -2 70 S 94 [facility] ti EN 51 9- 3- 0 PH 78 FE ve TI 13 20 20 AR R L [address] HF 1 CY CH A AE 90 #5 L 43 G MC 7 G IN [facility] LE R CO 00 09 09 00 63 18 CV 46 SC Ac ED 59 -1 -2 .0 S 94 [facility] ti NI 15 9- 6- 00 PH 76 FE ve SO 44 20 20 AR R NE [address] 1 CY CH 10 AE #5 L MG 43 G 7 TA BL ET AV 00 09 09 00 7. 7 CV 46 SC Ac EL 08 -1 -2 00 S 94 [facility] ti OX 51 9- 6- 0 PH 75 FE ve 73 20 20 AR R 40 [address] 0 1 CY CH MG AE #5 L TA 43 G BL 7 ET 49 09 09 00 25 25 CV 46 SC Ac 50 -1 -2 0. S 94 [facility] ti 20 9- 6- 00 PH 77 FE ve 68 20 20 0 AR R [address] 6 CY CH AE #5 L 43 G 7 CO 00 09 09 00 6. 25 CV 46 SC Ac OV 08 -1 -2 70 S 94 [facility] ti EN 51 9- 6- 0 PH 78 FE ve TI 13 20 20 AR R L [address] HF 1 CY CH A AE 90 #5 L 43 G MC 7 G IN [facility] LE R 17 07 09 03 17 20 CV 46 SC Ac 27 -0 -1 .0 S 25 [facility] ti 00 7- 1- 00 PH 86 FE ve 72 20 20 AR R [address] 1 CY CH AE #5 L 43 G 7 TR 60 07 08 01 30 30 CV 46 SC Ac AZ 50 -0 -1 .0 S 25 [facility] ti OD 52 7- 4- 00 PH 88 FE ve ON 65 20 20 AR R E [address] 50 1 CY CH AE MG #5 L 43 G TA 7 BL ET AD 00 07 08 01 60 30 CV 46 SC Ac VA 17 -0 -1 .0 S 25 [facility] ti IR 30 7- 4- 00 PH 87 FE ve 69 20 20 AR R [address] 0- 0 CY CH 50 AE #5 L DI 43 G SK 7 US 17 07 08 02 17 20 CV 46 SC Ac 27 -0 -1 .0 S 25 [facility] ti 00 7- 4- 00 PH 86 FE ve 72 20 20 AR R [address] 1 CY CH AE #5 L 43 G 7 NI 00 07 08 00 30 30 CV 46 SC Ac 07 -3 -1 .0 S 46 [facility] ti PA 43 1- 4- 00 PH 70 FE ve N 07 20 20 AR R ER [address] 0 CY CH 50 AE 0 #5 L MG 43 G 7 TA BL ET 17 07 08 01 17 20 CV 46 SC Ac 27 -0 -0 .0 S 25 [facility] ti 00 7- 1- 00 PH 86 FE ve 72 20 20 AR R [address] 1 CY CH AE #5 L 43 G 7 17 07 07 00 17 20 CV 46 SC Ac 27 -0 -1 .0 S 25 [facility] ti 00 7- 7- 00 PH 86 FE ve 72 20 20 AR R [address] 1 CY CH AE #5 L 43 G 7 TR 60 07 07 00 30 30 CV 46 SC Ac AZ 50 -0 -1 .0 S 25 [facility] ti OD 52 7- 7- 00 PH 88 FE ve ON 65 20 20 AR R E [address] 50 1 CY CH AE MG #5 L 43 G TA 7 BL ET AD 00 07 07 00 60 30 CV 46 SC Ac VA 17 -0 -1 .0 S 25 [facility] ti IR 30 7- 7- 00 PH 87 FE ve 69 20 20 AR R [address] 0- 0 CY CH 50 AE #5 L DI 43 G SK 7 US ME 00 07 07 00 21 6 CV 46 GA Ac TH 78 -0 -1 .0 S 20 IN ti YL 15 1- 7- 00 PH 27 EY ve CO 02 20 20 AR ED [address] NI 7 CY CH SO AE LO [...] 1 CY bl e #5 43 7 CO 00 01 03 00 30 13 CV [...] 4- 6- 00 IC 80 Av ve CO 00 20 20 ai ED 10 08 [...] O2 SYS RENT; FLWMTR HUMIDFR&M ASK BLOOD 34224 [facility] [facility] COMPLETE INC INC AUTO&AUTO DIFRNTL WBC COLLECTIO 05215 [place] Nova VENOUS [facility] BLOOD INC INC VENIPUNCT URE PRESSURIZ 11603 [place] [facility] ED/NONPRE 7 [facility] SSURIZED INC INC INHALATIO N TREATMENT NONINVASI 99005 [place] [facility] VE [facility] EAR/PULSE INC INC OXIMETRY SINGLE DETER BASIC 71220 [place] YOU METABOLIC 7 [facility] PANEL INC INC CALCIUM TOTAL BASIC 69546 [place] YOU METABOLIC 7 [facility] PANEL INC INC CALCIUM TOTAL NONINVASI 34466 [place] [facility] VE 7 [facility] EAR/PULSE INC INC OXIMETRY SINGLE DETER PRESSURIZ 57173 [place] YOU ED/NONPRE 7 [facility] SSURIZED INC INC INHALATIO N TREATMENT COLLECTIO 65912 [place] [facility] N VENOUS 7 [facility] BLOOD INC INC V[facility]IPUNCT URE [facility] G0378 [place] [facility] OBSERVATI 7 [facility] ON INC INC SERVICE PER HOUR THERAPEUT 17115 [place] [facility] IC 7 [facility] INJECTION INC INC IV PUSH EACH NEW DRUG THER 54058 [place] YOU PROPH/DX 7 [facility] NJX IV INC INC PUSH SINGLE/1S T SBST/DRUG HOSPITAL G0378 [place] YOU OBSERVATI 7 [facility] ON INC INC SERVICE PER HOUR PRESSURIZ 66327 [place] YOU ED/NONPRE 7 [facility] SSURIZED INC INC INHALATIO N TREATMENT NONINVASI 40212 [place] YOU VE 7 [facility] EAR/PULSE INC INC OXIMETRY SINGLE DETER PRESSURIZ 61606 [place] YOU ED/NONPRE 7 [facility] SSURIZED INC INC INHALATIO N TREATMENT CREATINE 89494 [place] YOU KINASE MB 7 [facility] FRACTION INC INC ONLY BLOOD 99777 [place] YOU GASES ANY 7 [facility] INC INC COMBINATI ON PH PCO2 PO2 CO2 HCO3 COMPREHEN 82906 [place] YOU SIVE 7 [facility] METABOLIC INC INC PANEL BLOOD 91618 [place] YOU COUNT 7 [facility] COMPLETE INC INC AUTO&[place] [address] [place] [facility] TROPONIN 7 [facility] QUANTITAT INC INC CARLOS ECG 62449 [place] ADAMS ROUTINE [address] [facility] W/LEAST P 12 LDS I&R ONLY RADIOLOGI 30411 [place] OYU C 7 [facility] EXAMINATI INC INC ON CHEST SINGLE VIEW FRONTAL ECG 18387 [place] YOU ROUTINE 7 [facility] ECG INC INC W/LEAST 12 LDS TRCG ONLY W/O I&R CREATINE 85982 [place] YOU KINASE 7 [facility] TOTAL INC INC PRTBLE E0431 PATIENT PATIENT GASEOUS 7 AIDS INC AIDS INC O2 SYS RENT; FLWMTR HUMIDFR&M ASK O2 CONC 1 E1390 PATIENT PATIENT DEL PORT 7 AIDS INC AIDS INC 85%/>02 [facility] AT [facility] FLW RATE PHYS G0179 RODNEY ADAMS RE-CERT 7 [place] MCR-COVR INTERNAL [facility] SRVC RE-CERT [facility] 67619 [place] [facility] DISCHARGE 7 [place] DAY INTERNAL MANAGEMEN MED T 30 MIN/< SBSQ [id number] CARE/DAY INTERNAL 25 MED MINUTES SBSQ [id number]/DAY INTERNAL 25 MED MINUTES ECG 99770 [place] DIAZ JR ROUTINE 7 [facility] W/LEAST P 12 LDS I&R ONLY ECG 69058 [place] ADAMS ROUTINE [address] [place] [address] W/LEAST P 12 LDS I&R ONLY RADIOLOGI 97994 [facility] C EXAM 7 MEDICAL CHEST 2 IMAGING VIEWS ASS FRONTAL&L ATERAL PRTBLE E0431 PATIENT PATIENT GASEOUS 7 AIDS INC AIDS INC O2 SYS RENT; FLWMTR HUMIDFR&M ASK O2 CONC 1 E1390 PATIENT PATIENT DEL PORT 7 AIDS INC AIDS INC 85%/>02 [facility] AT [facility] FLW RATE COLLECTIO [address] [facility] VENOUS 7 [facility] VENIPUNCT PHYSICIAN URE S PRTBLE E0431 PATIENT PATIENT GASEOUS 6 AIDS INC AIDS INC O2 SYS RENT; FLWMTR HUMIDFR&M ASK O2 CONC 1 E1390 PATIENT PATIENT DEL PORT 6 AIDS INC AIDS INC 85%/>02 [facility] AT [facility] FLW RATE PRESSURIZ 11938 [place] YOU ED/NONPRE 6 [facility] SSURIZED INC INC INHALATIO N TREATMENT NONINVASI 30958 [place] YOU VE 6 [facility] EAR/PULSE INC INC OXIMETRY SINGLE [facility] G0378 [place] YOU OBSERVATI 6 [facility] ON INC INC SERVICE PER [facility]OUR [facility] G0378 [place] YOU OBSERVATI 6 [facility] ON INC INC SERVICE PER HOUR NONINVASI 80213 [place] YOU VE 6 [facility] EAR/PULSE INC INC OXIMETRY SINGLE DETER PRESSURIZ 53039 [place] YOU ED/NONPRE 6 [facility] SSURIZED INC INC INHALATIO N TREATMENT PRESSURIZ 43365 [place] YOU ED/NONPRE 6 [facility] SSURIZED INC INC INHALATIO N TREATMENT NONINVASI 53334 [place] [facility] VE 6 [facility] EAR/PULSE INC INC OXIMETRY SINGLE DETER COLLECTIO 75837 [place] YOU N VENOUS 6 [facility] BLOOD INC INC VENIPUNCT [facility] G0378 [place] YOU OBSERVATI 6 [facility] ON INC INC SERVICE PER HOUR BLOOD 69922 [place] [facility] COUNT 6 [facility] COMPLETE INC INC AUTO&AUTO DIFRNTL WBC BASIC 56974 [place] YOU METABOLIC 6 [facility] PANEL INC INC CALCIUM [facility] G0378 [place] YOU OBSERVATI 6 [facility] ON INC INC SERVICE PER HOUR BLOOD 20128 [place] YOU COUNT 6 [facility] COMPLETE INC INC AUTO&[place] [address] [place] YOU TROPONIN 6 [facility] QUANTITAT INC INC CARLOS RADIOLOGI 44362 [facility] C EXAM 6 MEDICAL CHEST 2 IMAGING VIEWS ASS FRONTAL&L ATERAL ECG 20977 [place] DIAZ JR ROUTINE 6 [facility] W/LEAST P 12 LDS I&R ONLY COMPREHEN 42073 [place] [facility] SIVE 6 [facility] METABOLIC INC INC PANEL BLOOD 34953 [place] YOU GASES ANY 6 [facility] INC INC COMBINATI ON PH PCO2 PO2 [place]2 [place] [address] [place] YOU INFUSION 6 [facility] THERAPY/P INC INC ROPHYLAXI S /DX 1ST TO 1 HR NATRIURET 97229 [place] [facility] IC 6 [facility] [place] [address] [place] [facility] LACTATE 6 [facility] INC INC CREATINE 99924 K[place] YOU KIN[place] MB 6 [facility] FRACTION INC INC ONLY CREATINE 49018 [place] YOU KINASE 6 [facility] TOTAL INC INC ECG 11218 [place] YUO ROUTINE 6 [facility] ECG INC INC W/LEAST 12 LDS TRCG ONLY W/O I&R THERAPEUT 62589 [place] YOU IC 6 [facility] INJECTION INC INC IV PUSH EACH NEW DRUG THERAPEUT 76436 [place] YOU IC 6 [facility] INJECTION INC INC IV PUSH EACH NEW DRUG THER 70679 [place] YOU PROPH/DX 6 [facility] NJX IV INC INC PUSH SINGLE/1S T SBST/DRUG RADIOLOGI 17317 [place] [facility] C 6 MEDICAL EXAMINATI IMAGING ON CHE[place] [address] [place] YOU LACTATE 6 [facility] INC INC PRESSURIZ 46679 [place] YOU ED/NONPRE 6 [facility] SSURIZED INC INC INHALATIO N TREATMENT COMPREHEN 91869 [place] [facility] SIVE 6 [facility] METABOLIC INC INC PANEL CULTURE 75626 [place] YOU BACTERIAL 6 [facility] BLOOD INC INC AEROBIC W/ID ISOLATES BLOOD 69197 [place] [facility] COUNT 6 [facility] COMPLETE INC INC AUTO&AUTO DIFRNTL WBC PRTBLE E0431 PATIENT PATIENT GASEOUS 6 AIDS INC AIDS INC O2 SYS RENT; FLWMTR HUMIDFR&M ASK O2 CONC 1 E1390 PATIENT PATIENT DEL PORT 6 AIDS INC AIDS INC 85%/>02 CONC AT PRS FLW RATE BLOOD 31659 [place] [facility] COUNT 6 [facility] COMPLETE INC INC AUTO&AUTO DIFRNTL [facility] G0378 [place] YOU OBSERVATI 6 [facility] ON INC INC SERVICE PER HOUR COMPREHEN 33225 [place] [facility] SIVE 6 [facility] METABOLIC INC INC PANEL COLLECTIO 98663 [place] YOU N VENOUS 6 [facility] BLOOD INC INC VENIPUNCT URE PRESSURIZ 54641 [place] YOU ED/NONPRE 6 [facility] SSURIZED INC INC INHALATIO N TREATMENT GLUC BLD 47271 [place] YOU GLUC MNTR 6 [facility] DEV INC INC CLEARED FDA SPEC HOME USE NONINVASI 76473 [place] YOU VE 6 [facility] EAR/PULSE INC INC OXIMETRY SINGLE DETER NONINVASI 68579 [place] YOU VE 6 [facility] EAR/PULSE INC INC OXIMETRY SINGLE DETER GLUC BLD 53362 [place] YOU GLUC MNTR 6 [facility] DEV INC INC CLEARED FDA SPEC HOME USE PRESSURIZ 92989 [place] YOU ED/NONPRE 6 [facility] SSURIZED INC INC INHALATIO N TREATMENT [facility]OSPITAL G0378 [facility] OBSERVATI 6 [facility] ON INC INC SERVICE PER [facility] G0378 [facility] OBSERVATI 6 [facility] [place] [address] [facility] TROPONIN 6 [facility] QUANTITAT INC INC CARLOS BLOOD 30939 [facility] COUNT 6 [facility] COMPLETE INC INC AUTO&AUTO DIFRNTL WBC CULTURE 68528 [facility] BACTERIAL 6 [facility] BLOOD INC INC AEROBIC W/[place] [address] [facility] LACTATE 6 [facility] INC INC CREATINE 31556 [facility] KINASE MB 6 [facility] [place] [address] [facility] INFUSION 6 [facility] THERAPY/P INC INC ROPHYLAXI S /DX 1ST TO 1 HR NONINVASI 26436 [facility] VE 6 [facility] EAR/PULSE INC INC OXIMETRY SINGLE DETER PRESSURIZ 78190 [facility] ED/NONPRE 6 [facility] SSURIZED INC INC INHALATIO N TREATMENT ECG 87088 [facility] DIAZ JR ROUTINE [address] [facility] W/LEAST P 12 LDS I&R ONLY COMPREHEN 65587 [facility] SIVE 6 [facility] METABOLIC INC INC PANEL GLUC BLD 40302 [facility] GLUC MNTR 6 [facility] DEV INC INC CLEARED FDA SPEC HOME USE RADIOLOGI 16790 [facility] C 6 [facility] EXAMINATI INC INC ON CHEST SINGLE VIEW FRONTAL THERAPEUT 13456 [facility] IC 6 [facility] INJECTION INC INC IV PUSH EACH NEW DRUG INITIAL 63484 [facility] OBSERVATI 6 PHYSICIAN EUG ON S GROUP CARE/DAY 50 MINUTES ECG 46620 [facility] ROUTINE 6 [facility] ECG INC INC W/LEAST 12 LDS TRCG ONLY W/O I&R CREATINE 42787 [facility] KINASE 6 [facility] MEM [...] O2 SYS RENT; FLWMTR HUMIDFR&M ASK RADEX 72979 RADIOLOGY LUBBERS HIPS 6 BILATERAL ASSOCIATE WITH S OF NOTH PELVIS [address] SPINE 6 [facility] LUMBOSACR FT FT AL BOBBY BOBBY MINIMUM 4 VIEWS RADEX 03885 RADIOLOGY IMPERIAL SPINE 6 LUMBOSACR ASSOCIATE AL 2/3 S [...] O2 SYS RENT; FLWMTR HUMIDFR&M ASK ANES 42070 ANESTHESI BAKER LOLA UPPER GI 6 A GROUP ENDOSCOPY PRACT[place] [address] MED [facility] GROSS&DIONNA ROSCOPIC EXAM INITIAL [address] CARE/DAY 50 PHYSICIAN MINUTES S SBSQ [address] CARE/DAY 25 PHYSICIAN MINUTES S SBSQ [address] CARE/DAY 25 PHYSICIAN MINUTES S SBSQ [address] CARE/DAY 25 PHYSICIAN MINUTES S SBSQ [address] CARE/DAY 25 PHYSICIAN MINUTES S SBSQ [address] CARE/DAY 25 PHYSICIAN MINUTES S SBSQ [address] CARE/DAY 25 PHYSICIAN MINUTES S INITIAL [address] CARE/DAY [address] [place] [address] RADIOLOGY ELEELE ANGIOGRAP 6 JORDYN HY CHEST ASSOCIATE W/CONTRAS S OF [facility] T/NONCONT RAST RADIOLOGI 64483 RAD[facility]OLOGY [facility] 6 EXAMINATI ASSOCIATE ON CHEST S OF [facility] SINGLE VIEW FRONTAL PRTBLE E0431 PATIENT PATIENT GASEOUS 6 AIDS INC AIDS INC O2 SYS RENT; [facility] HUMIDFR&M ASK O2 CONC 1 E1390 PATIENT PATIENT DEL PORT 6 AIDS INC AIDS INC 85%/>02 [facility] AT [facility] [address] [facility] DISCHARGE [address] [place] [address] MANAGEMEN PHYSICIAN T 30 S MIN/< SBSQ [id number] CARE/DAY 25 PHYSICIAN MINUTES S SBSQ [address] CARE/DAY 25 PHYSICIAN MINUTES S CV STRS [address] [facility] TST 6 NATHANIEL ER TORIBIO XERS&/OR RX CONT PHYSICIAN ECG W/O S I&R MYOCARDIA [address]53[address] ST GARCIA BERNICE L SPECT [address] [facility] [place] [address] RADIOLOGY [facility] CERVICAL 6 DOT SPINE W/O ASSOCIATE CONTRAST S OF [facility] MATERIAL CV STRS 57535 [facility] TST 6 NATHANIEL ER TORIBIO XERS&/OR RX CONT PHYSICIAN ECG I&R S ONLY INITIAL [address]/DAY 50 PHYSICIAN MINUTES S SBSQ [address] CARE/DAY 25 PHYSICIAN MINUTES S SBSQ [address] CARE/DAY 25 PHYSICIAN MINUTES S INITIAL [address] [facility] 6 NATHANIEL GAR CARE/DAY [...] AIDS INC AIDS INC 85%/>02 CONC AT [facility] [address] [address] DISCHARGE 5 [facility] DAY MANAGEMEN PHYSICIAN PHYSICIAN T 30 S S MIN/< DUP-SCAN [address] [facility] XTR VEINS 5 NATHANIEL BRA COMPLETE MED [...] SYS RENT; FLWMTR HUMIDFR&M ASK CT THORAX [address] 5 [facility] W/CONTRAS FT FT Galina ROSALES MATERIAL PRTBLE E0431 PATIENT PATIENT GASEOUS 5 AIDS INC AIDS INC O2 SYS RENT; FLWMTR HUMIDFR&M ASK O2 CONC 1 E1390 PATIENT PATIENT DEL PORT 5 AIDS INC AIDS INC 85%/>02 CONC AT PRS FLW RATE O2 CONC 1 E1390 PATIENT PATIENT DEL PORT 5 AIDS INC AIDS INC 85%/>02 CONC AT [facility] FLW RATE PRTBLE E0431 PATIENT PATIENT GASEOUS 5 AIDS INC AIDS INC O2 SYS RENT; [place] [address] [facility] DIFFUSING 5 NATHANIEL YEAR LAT CAPACITY PHYSICIAN S BRNCDILAT 52874 [facility] RSPSE 5 NATHANIEL YEAR LAT SPMTRY PRE&POST- PHYSICIAN BRNCDILAT S ADMN PLETHYSMO 98443 [facility] GRAPHY 5 NATHANIEL YEAR LAT LUNG VOLUMES PHYSICIAN W/WO S [facility] [address] NIV DISCHARGE 5 MANAGEMEN PHYSICIAN T 30 S MIN/< WALKER E0143 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 FOLDING 5 STONE STONE WHEELED MEDICAL MEDICAL ADJUSTABL [facility] E/FIXED HEIGHT SEAT E0156 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 5 STONE STONE T [facility] THORAX 39530 RADIOLOGY LUBBERS 5 KAROLYN W/CONTRAS ASSOCIATE T S OF NOTH MATERIAL RADEX 84921 RADIOLOGY HURST BERNICE SHOULDER 5 COMPLETE ASSOCIATE MINIMUM 2 S OF NOTH VIEWS BRNCDILAT 43748 [facility] RSPSE 4 NATHANIEL IRF SPMTRY MED CTR PRE&[place] [address] [facility] DIFFUSING 4 NATHANIEL IRF CAPACITY MED CTR PLETHYSMO 69549 [facility] GRAPHY 4 NATHANIEL IRF LUNG MED CTR VOLUMES W/WO AIRWAY RESIST CT THORAX 15663 RADIOLOGY HURST BERNICE 4 W/CONTRAS ASSOCIATE T S OF NOTH MATERIAL CT THORAX 15852 [facility] 4 NATHANIEL NATHANIEL W/CONTRAS FT FT T [facility] 42038 BOB BOB DISCHARGE 4 MANAGEMEN T 30 MIN/< RADIOLOGI 62081 ADRIANA Salazar MAURO EXAMINATI ON CHEST SINGLE VIEW FRONTAL CT THORAX 91733 RANJIT Salazar MAURO MAURO W/CONTRAS T MATERIAL [...] 85%/>02 CONC AT PRS FLW RATE LIPID [address] PANEL 3 [facility] MED CTR 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 STEAM TABLE WORKER ST COMPREHEN [address] SIVE 3 [facility] METABOLIC MED CTR MED CTR PANEL STEAM TABLE WORKER [place] [address] THYROID 3 [facility] STIMULATI MED CTR MED CTR NG STEAM TABLE WORKER ST STEAM TABLE WORKER ST HORMONE TSH BLOOD [address] COUNT 3 [facility] COMPLETE MED CTR MED CTR AUTO&AUTO STEAM TABLE WORKER ST STEAM TABLE WORKER ST DIFRNTL WBC PRTBLE E0431 PATIENT PATIENT [...] INC INC [place] REGION 9 REGION 9 [facility] AREA/OT SYS BLOOD 43898 [facility] COUNT 3 N JORDYN N [facility] COMPLETE AUTO&AUTO DIFRNTL WBC COMPREHEN [address] METABOLIC MEDICAL MEDICAL PANEL C C PRTBLE E0431 PATIENT PATIENT GASEOUS 3 AIDS INC AIDS INC O2 SYS RENT; FLWMTR HUMIDFR&M ASK O2 CONC 1 E1390 PATIENT PATIENT DEL PORT 3 AIDS INC AIDS INC 85%/>02 CONC AT PRSC FLW RATE RADEX [address] SPINE 3 NATHANIEL NATHANIEL LUMBOSACR FT FT AL 2/3 BOBBY BOBBY VIEWS PRTBLE E0431 PATIENT PATIENT GASEOUS 3 AIDS INC AIDS INC O2 SYS RENT; FLWMTR HUMIDFR&M ASK FLUORODEO A[address] XYGLUCOSE 3 NATHANIEL NATHANIEL F-18 [facility] DX UP TO CENTER CENTER 45 MCI PET 7[address]60 [facility] [address] ATTENUATI ON SKULL BASE MID-THIGH PORTABLE E0443 PATIENT PATIENT O2 3 AIDS INC AIDS INC CONTENTS GASEOUS 1 MO SUPPLY=1 UNIT O2 CONC 1 E1390 PATIENT PATIENT DEL PORT 3 AIDS INC AIDS INC 85%/>02 CONC AT PRSC FLW RATE PRTBLE E0431 PATIENT PATIENT GASEOUS 3 AIDS INC AIDS INC O2 SYS RENT; FLWMTR HUMIDFR&M ASK BLOOD 48484 [facility] COUNT 3 N JORDYN N [facility] COMPLETE AUTO&AUTO DIFRNTL WBC COMPREHEN [address] METABOLIC MEDICAL MEDICAL PANEL C C LOCM Q9967 ST ST 300-399 3 NATHANIEL NATHANIEL MG/ML FT FT IODINE BOBBY ROSALES CONCENTRA TION PER ML CT THORAX 29651 FUNMI FUNMI 3 CHR CHR W/CONTRAS T MATERIAL PRTBLE E0431 PATIENT PATIENT GASEOUS 3 AIDS INC AIDS INC O2 SYS RENT; FLWMTR HUMIDFR&M ASK O2 CONC 1 E1390 PATIENT PATIENT DEL PORT 3 AIDS INC AIDS INC 85%/>02 CONC AT [facility] FLW RATE BLOOD 59454 LEANDRA MOBLEY COUNT 3 N JORDYN N JORDYN COMPLETE AUTO&AUTO DIFRNTL WBC RADJ DLVR [address] 3/> 3 NATHANIEL NATHANIEL AREAS FT FT CUSTOM BOBBY BOBBY BLKING 11-19MEV RADJ DLVR [address] 3/> 3 NATHANIEL NATHANIEL AREAS FT FT CUSTOM BOBBY BOBBY BLKING 11-19MEV PRTBLE E0431 PATIENT PATIENT GASEOUS 3 AIDS INC AIDS INC O2 SYS RENT; FLWMTR HUMIDFR&M ASK O2 CONC 1 E1390 PATIENT PATIENT DEL PORT 3 AIDS INC AIDS INC 85%/>02 CONC AT [facility] FLW RATE RADJ DLVR [address] 3/> 3 NATHANIEL NATHANIEL AREAS FT FT CUSTOM BOBBY BOBBY BLKING 11-19MEV CONTINUIN 02690 [facility] 3 [facility] PHYSICS FT FT CONSLTJ BOBBY BOBBY [place] WK RADJ DLVR [address] 3/> 3 NATHANIEL NATHANIEL AREAS FT FT CUSTOM BOBBY BOBBY BLKING 11-19MEV RADJ DLVR [address] 3/> 3 NATHANIEL NATHANIEL AREAS FT FT CUSTOM BOBBY BOBBY BLKING 11-19MEV RADIATION 37363 SHO BERKOWITZ PRA 3 TREATMENT MANAGEMEN T 5 TREATMENT S THERAPEUT 13[address] [facility] 3 [facility] RADIOLOGY FT FT PORT BOBBY BOBBY IMAGES(S) RADJ DLVR [address] 3/> 3 NATHANIEL NATHANIEL AREAS FT FT CUSTOM BOBBY BOBBY BLKING 11-19MEV BLOOD 26358 [facility] COUNT 3 OWSKI M OWSKI M COMPLETE AUTO&AUTO DIFRNTL WBC CONTINUIN 18083 [facility] FT FT CONSLTJ BOBBY BOBBY [place] WK RADJ DLVR [address] 3/> 3 NATHANIEL NATHANIEL AREAS FT FT CUSTOM BOBBY BOBBY BLKING 11-19MEV RADJ DLVR [address] 3/> 3 NATHANIEL NATHANIEL AREAS FT FT CUSTOM BOBBY BOBBY BLKING 11-19MEV RADJ DLVR [address] 3/> 3 NATHANIEL NATHANIEL AREAS FT FT CUSTOM BOBBY BOBBY BLKING 11-19MEV RADJ DLVR [address] 3/> 3 NATHANIEL NATHANIEL AREAS FT FT CUSTOM BOBBY BOBBY BLKING 11-19MEV THERAPEUT [address] IC 3 [facility] RADIOLOGY FT FT PORT BOBBY BOBBY IMAGES(S) RADIATION 54982 SHO BERKOWITZ PRA 3 TREATMENT MANAGEMEN T 5 TREATMENT S RADJ DLVR [address] 3/> 3 NATHANIEL NATHANIEL AREAS FT FT CUSTOM BOBBY BOBBY BLKING 11-19MEV INJECTION J1200 LEANDRA MOBLEY 3 N JORDYN COBB DIPHENHYD RAMINE HCL UP TO 50 MG INJECTION J9045 LEANDRA MOBLEY 3 N JORDYN COBB CARBOPLAT IN 50 [place] [address] LEANDRA MOBLEY INFUSION 3 N JORDYN COBB THER PROPH ADDL SEQUENTIA L TO 1 HR CHEMOTX 32731 LEANDRA MOBLEY ADMN IV 3 N JORDYN COBB NFS TQ EA SEQL NFS TO 1 HR BLOOD 50762 LEANDRA MOBLEY COUNT 3 N JORDYN COBB COMPLETE AUTO&AUTO DIFRNTL WBC RADJ DLVR [address] 3/> 3 NATHANIEL NATHANIEL AREAS FT FT CUSTOM BOBBY BOBBY BLKING 11-19MEV CONTINUIN [address] G MEDICAL 3 [facility] PHYSICS FT FT CONSLTJ BOBBY BOBBY CO WK INJECTION J2405 LEANDRA MOBLEY 3 N JORDYN COBB ONDANSETR ON HCL PER 1 MG INJECTION J9265 LEANDRA MOBLEY 3 N JORDYN COBB PACLITAXE L 30 MG COMPREHEN 97824 LEANDRA MOBLEY SIVE 3 N JORDYN N JORDYN METABOLIC PANEL INJECTION J1100 LEANDRA MOBLEY 3 N JORDYN N JORDYN DEXAMETHO SONE SODIUM PHOSPHATE 1 MG INJECTION J2780 LEANDRA MOBLEY 3 N JORDYN COBB RANITIDIN E HYDROCHLO RIDE 25 MG CHEMOTX 06856 LE[place]DRA [place] 3 N JORDYN COBB NFS TQ UP 1 HR SBST/DRUG RADJ DLVR [address] 3/> 3 NATHANIEL NATHANIEL AREAS FT FT CUSTOM BOBBY BOBBY BLKING 11-19MEV RADJ DLVR [address] 3/> 3 NATHANIEL NATHANIEL AREAS FT FT CUSTOM BOBBY BOBBY BLKING 11-19MEV RADJ DLVR [address] 3/> 3 NATHANIEL NATHANIEL AREAS FT FT CUSTOM BOBBY BOBBY BLKING 11-19MEV RADIATION 03438 BERKOWITZ PRA BERKOWITZ PRA 3 TREATMENT MANAGEMEN T 5 TREATMENT S THERAPEUT [address] IC 3 NATHANIEL NATHANIEL RADIOLOGY FT FT PORT BOBBY BOBBY IMAGES(S) RADJ DLVR [address] 3/> 3 NATHANIEL NATHANIEL AREAS FT FT CUSTOM BOBBY BOBBY BLKING 11-19MEV RADJ DLVR [address] 3/> 3 NATHANIEL NATHANIEL AREAS FT FT CUSTOM BOBBY BOBBY BLKING 11-19MEV CONTINUIN [address] G MEDICAL 3 NATHANIEL NATHANIEL PHYSICS FT FT CONSLTJ BOBBY BOBBY CO WK BLOOD 45298 LEANDRA MOBLEY COUNT 3 N JORDYN COBB COMPLETE AUTO&AUTO DIFRNTL WBC COMPREHEN 32281 LEANDRA MOBLEY SIVE 3 N JORDYN COBB METABOLIC PANEL INJECTION J9045 LEANDRA MOBLEY 3 N JORDYN COBB CARBOPLAT IN 50 [place] [address] [facility] DIFFUSING 3 YEAR LAT YEAR LAT CAPACITY BRNCDILAT 31621 [facility] RSPSE 3 YEAR LAT YEAR LAT SPMTRY PRE&POST- BRNCDILAT ADMN PLETHYSMO 90739 [facility] GRAPHY 3 YEAR LAT YEAR LAT LUNG VOLUMES W/WO AIRWAY RESIST RADIATION 80415 SHO SHAH 3 TREATMENT MANAGEMEN T 5 TREATMENT S BLOOD 34015 LEANDRA SAID BEL COUNT 3 N JORDYN COMPLETE AUTO&AUTO DIFRNTL WBC INJECTION J9265 LEANDRA MOBLEY 3 N JORDYN N JORDYN PACLITAXE L 30 MG INJECTION J2405 LEANDRA MOBLEY 3 N JORDYN N JORDYN ONDANSETR ON HCL PER 1 MG COMPREHEN 24246 LEANDRA MOBLEY SIVE 3 N JORDYN COBB METABOLIC PANEL INJECTION J2780 LEANDRA KERRI 3 N JORDYN VELASQUEZ RANITIDIN E HYDROCHLO RIDE 25 MG INJECTION J1100 LEANDRA MOBLEY 3 N JORDYN N JORDYN DEXAMETHO SONE SODIUM PHOSPHATE 1 [place] [address] LEANDRA MOBLEY INFUSION 3 N JORDYN N JORDYN THER PROPH ADDL SEQUENTIA L TO 1 HR INJECTION J9045 LEANDRA MOBLEY 3 N JORDYN N JORDYN CARBOPLAT IN 50 MG INJECTION J1200 LEANDRA MOBLEY 3 N JORDYN N JORDYN DIPHENHYD RAMINE HCL UP TO 50 MG CHEMOTX 72732 LEANDRA MOBLEY ADMN IV 3 N JORDYN COBB NFS TQ EA SEQL NFS TO 1 HR CHEMOTX 83643 LEANDRA MOBLEY ADMN IV 3 N JORDYN N JORDYN NFS TQ UP 1 HR SBST/DRUG RADIATION 98578 SHO SHAH 3 TREATMENT MANAGEMEN T 5 TREATMENT S PRTBLE E0431 KAMALJIT KAMALJIT GASEOUS 3 HOME HOME O2 SYS MEDICAL MEDICAL RENT; EQUIPME EQUIPME FLWMTR HUMIDFR&M ASK O2 CONC 1 E1390 KAMALJIT MARTINEZ PORT 3 HOME HOME 85%/>02 MEDICAL MEDICAL CONC AT [facility] FLW RATE CHEMOTX 38198 LE[place] 3 N JORDYN N JORDYN NFS TQ UP 1 HR SBST/DRUG CHEMOTX 64885 LEANDRA MOBLEY ADMN IV 3 N JORDYN N JORDYN NFS TQ EA SEQL NFS TO 1 HR INJECTION J1200 LEANDRA MOBLEY 3 N JORDYN N JORDYN DIPHENHYD RAMINE HCL UP TO 50 MG INJECTION J9045 LEANDRA MOBLEY 3 N JORDYN N JORDYN CARBOPLAT IN 50 [place] [address] LEANDRA MOBLEY INFUSION 3 N JORDYN N JORDYN THER PROPH ADDL SEQUENTIA L TO 1 HR INJECTION J2405 LEANDRA MOBLEY 3 N JORDYN N JORDYN ONDANSETR ON HCL PER 1 MG BLOOD 42775 LEANDRA CHRISTENSENMIE COUNT 3 N JORDYN JR CHRYSTAL COMPLETE AUTO&AUTO DIFRNTL WBC INJECTION J9265 LEANDRA BARNESMAN 3 N JORDYN N JORDYN PACLITAXE L 30 MG INJECTION J1100 LEANDRA MOBLEY 3 N JORDYN N JORDYN DEXAMETHO SONE SODIUM PHOSPHATE 1 MG INJECTION J2780 LEANDRA MOBLEY 3 N JORDYN N JORDYN RANITIDIN E HYDROCHLO RIDE 25 MG COMPREHEN 97020 LEANDRA MBOLEY SIVE 3 N JORDYN N JORDYN METABOLIC PANEL RADIATION 39704 SHO BERKOWITZ PRA 3 TREATMENT MANAGEMEN T 5 TREATMENT S BLOOD 19480 LEANDRA BARNESMAN COUNT 3 N JORDYN N JORDYN COMPLETE AUTO&AUTO DIFRNTL WBC INJECTION J9265 LEANDRA BARNESMAN 3 N JORDYN N JORDYN PACLITAXE L 30 MG COMPREHEN 98623 LEANDRA MOBLEY SIVE 3 N JORDYN N JORDYN METABOLIC PANEL INJECTION J2780 LEANDRA BARNESMAN 3 N JORDYN N JORDYN RANITIDIN E HYDROCHLO RIDE 25 MG INJECTION J1100 LEANDRA MOBLEY 3 N JORDYN N JORDYN DEXAMETHO SONE SODIUM PHOSPHATE 1 [place] [address] LEANDRA MOBLEY INFUSION 3 N JORDYN N JORDYN THER PROPH ADDL SEQUENTIA L TO 1 HR INJECTION J9045 LEANDRA MOBLEY 3 N JORDYN N JORDYN CARBOPLAT IN 50 MG INJECTION J1200 LEANDRA MOBLEY 3 N JORDYN N JORDYN DIPHENHYD RAMINE HCL UP TO 50 MG CHEMOTX 02827 LEANDRA MOBLEY ADMN IV 3 N JORDYN N JORDYN NFS TQ EA SEQL NFS TO 1 HR CHEMOTX 32811 LEANDRA MOBLEY ADMN IV 3 N JORDYN N JORDYN NFS TQ UP 1 HR SBST/DRUG ADMN SET A7003 YOUR YOUR SM VOL 3 PHARMACY PHARMACY NONFILTR [facility] PNEUMAT NEBULIZR DISPBL 3-D 88757 [facility] CARMEL RADIOTHER 3 BRA BRA APY PLAN DOSE-VOLU ME HISTOGRAM S BASIC 36978 [facility] [place] [address] [facility] CARMEL DEVICES 3 BRA BRA DESIGN & CONSTRUCT ION COMPLEX SPMTRY 00006 SRINIVASAN BAR SRINIVASAN BAR W/VC 3 EXPIRATOR Y JONATHAN W/[place] [address] HURST BERNICE HURST BERNICE GUIDANCE 3 RADIATION THERAPY FLDS PLACEMENT THERAPEUT 47414 SHO SHAH IC 3 RADIOLOGY TX PLANNING COMPLEX THER RAD 01866 SHO SHAH SIMULAJ-A 3 IDED FIELD SETTING COMPLEX PET 81369 [facility] 3 [place] [...] AT EQUIPME EQUIPME PRSC FLW RATE BLOOD 37550 LEANDRA MOBLEY COUNT 3 N JORDYN N JORDYN COMPLETE AUTO&AUTO DIFRNTL WBC BLOOD 21556 KENYATTA YOU COUNT 3 [facility] COMPLETE INC INC AUTO&AUTO DIFRNTL WBC COMPREHEN 94071 KENYATTA YOU SIVE 3 [facility] METABOLIC INC INC PANEL ADMN SET A7003 YOUR YOUR SM VOL 3 [facility] PNEUM[facility] NEBULIZR DISPBL PRTBLE E0431 KAMALJIT MARI GASEOUS 3 HOME HOME O2 SYS MEDICAL MEDICAL RENT; EQUIPME EQUIPOH FLWMTR HUMIDFR&M ASK O2 CONC 1 E1390 KAMALJIT MARI DEL PORT 3 HOME HOME 85%/>02 MEDICAL MEDICAL CONC AT EQUIPME EQUIPOH PRS FLW RATE CONSLTJ&R 63699 ERIKA JAMES EPRT 3 LOLA DAVILA SLIDES PREPARED ELSEWHERE NONINVASI 38988 KENYATTA YOU VE 3 [facility] EAR/PULSE INC INC OXIMETRY SINGLE DETER PRESSURIZ 41586 KENYATTA YOU ED/NONPRE 3 [facility] SSURIZED INC INC INHALATIO N TREATMENT RADIOLOGI 20585 RUSS SOLANO C EXAM 3 RHEA RHEA CHEST 2 VIEWS FRONTAL&L [facility] G0378 KENYATTA YOU OBSERVATI 3 [facility] ON INC INC SERVICE PER HOUR BLOOD 24842 KENYATTA YOU COUNT 3 [facility] COMPLETE INC INC AUTO&AUTO DIFRNTL WBC BASIC 60873 KENYATTA YOU METABOLIC 3 [facility] PANEL INC INC CALCIUM TOTAL OBSERVATI 56652 BARBRA JEFFREY ON CARE 3 JR CHRYSTAL JR CHRYSTAL DISCHARGE MANAGEMEN T CYTP FINE 00744 PICKLESIM PICKLESIM NDL 3 ER JR SANA ER JR SANA ASPIRATE IMMT CYTOHIST STD DX 1ST CYTP EVAL 25463 PICKLESIM PICKLESIM FINE 3 ER JR SANA ER JR SANA NEEDLE ASPIRATE INTERP & REPORT LEVEL IV 02-06-201 99018 PICKLESIM PICKLESIM SURG 3 ER JR SANA ER JR SANA PATHOLOGY GROSS&DIONNA ROSCOPIC EXAM RADIOLOGI 52872 RUSS RUSS C EXAM 3 RHEA RHEA CHEST 2 VIEWS FRONTAL&[place] [address] KENYATTA YOU GUIDANCE 3 [facility] NEEDLE INC INC PLACEMENT CT THORAX 17471 KENYATTA YOU W/O 3 [facility] CONTRAST INC INC MATERIAL PRESSURIZ 07626 KENYATTA YOU ED/NONPRE 3 [facility] SSURIZED INC INC INHALATIO N TREATMENT NONINVASI 07394 KENYATTA YOU VE 3 [facility] HOSP EAR/PULSE INC INC OXIMETRY SINGLE DETER FINE 83534 KENYATTA YOU NEEDLE 3 [facility] ASPIRATIO INC INC N WITH IMAGING GUIDANCE ANESTHESI 36672 [facility] A CLOSED 3 ANESTH CHEST OF THE NEEDLE BLUE BIOPSY PLEURA INITIAL 35899 BRYAN ADAMS OBSERVATI 3 MAURO MAURO ON CARE/DAY 30 MINUTES THROMBOPL 60198 KENYATTA YOU ASTIN 3 [facility] HOSP TIME INC INC PARTIAL PLASMA/WH OLE BLOOD PROTHROMB 42978 KENYATTA YOU IN TIME 3 [facility] HOSP INC INC BLOOD 96043 KENYATTA YOU COUNT 3 [facility] HOSP COMPLETE INC INC AUTO&AUTO DIFRNTL [facility] 10547 [facility] DISCHARGE 3 JR [facility] DAY MANAGEMEN T 30 MIN/< SBSQ 67373 [facility] 3 [facility]AL [facility] CARE/DAY 25 MINUTES INITIAL 39418 [facility] 3 MAURO MAURO CARE/DAY 50 MINUTES RADIOLOGI 31596 RUSS RUSS C EXAM 3 RHEA RHEA CHEST 2 VIEWS FRONTAL&[place] [address] RUSS RUSS ANGIOGRAP 3 RHEA RHEA HY CHEST W/CONTRAS T/NONCONT RAST NONINVASI 02954 BRYAN ADAMS VE 3 MAURO MAURO EAR/PULSE OXIMETRY SINGLE DETER ECG 81311 EMILY DIAZ JR ROUTINE 3 DWI DWI ECG W/LEAST 12 LDS I&R ONLY ADMN SET A7003 YOUR YOUR SM VOL 3 PHARMACY PHARMACY NONFILTR [facility] PNEUMAT NEBULIZR DISPBL PRTBLE E0431 KAMALJIT [...] YOUR SM VOL 2 PHARMACY PHARMACY NONFILTR [facility] PNEUMAT NEBULIZR DISPBL GROUND A0425 [facility]AL [facility]UTE HOSPITALEA 2 AMBULANCE AMBULANCE PER SERVICE SERVICE STATUTE MILE RADIOLOGI 28686 [place] [address] MEDICAL RHEA EXAMINATI IMAGING ON CHEST ASS SINGLE VIEW FRONTAL AMB A0427 [facility] SERVICE 2 AMBULANCE AMBULANCE ALS SERVICE SERVICE EMERGENCY TRANSPORT LEVEL 1 BRNCDILAT 48623 BARBRA JEFFREY RSPSE 2 JR CHRYSTAL SANTOYO CHRYSTAL SPMTRY PRE&POST- BRNCDILAT ADMN BLOOD 22180 KENYATTA YOU GASES ANY 2 [facility] INC INC COMBINATI ON PH PCO2 PO2 CO2 HCO3 GAS 76293 BARBRA JEFFREY DILUT/WAS 2 JR CHRYSTAL SANTOYO CHRYSTAL HOUT LUNG VOL W/WO DISTRIB VENT&V PRTBLE E0431 KAMALJIT KAMALJIT GASEOUS 2 HOME HOME O2 SYS MEDICAL MEDICAL RENT; EQUIPME EQUIPME FLWMTR HUMIDFR&M ASK O2 CONC 1 E1390 KAMALJIT KAMALJIT DEL PORT 2 HOME HOME 85%/>02 MEDICAL MEDICAL CONC AT EQUIPME EQUIPME PRSC FLW RATE CT THORAX 37700 RUSS RUSS 2 RHEA RHEA W/CONTRAS T MATERIAL LOCM Q9967 KENYATTA YOU 300-399 2 [facility] MG/ML INC INC IODINE CONCENTRA TION PER ML 3D 23772 KENYATTA YOU RENDERING 2 [facility] INC INC W/INTERP& POSTPROC DIFF WORK STATION RADIOLOGI 62356 KENYATTA MÉNDEZON C EXAM 2 [facility] CHEST 2 INC INC VIEWS FRONTAL&L ATERAL BLOOD 37168 KENYATTA YOU COUNT 2 [facility] COMPLETE INC INC AUTO&[place] [address] KENYATTA YOU THYROID 2 [facility] STIMULATI INC INC NG HORMONE TSH LIPID 03694 KENYATTA YOU PANEL 2 [facility] INC INC COMPREHEN 25824 KENYATTANAEL MÉNDEZON SIVE 2 [facility] METABOLIC INC INC PANEL CYANOCOBA 33988 KENYATTA YOU RAMBO 2 [facility] VITAMIN INC INC B-12 25 32998 KENYATTA YOU HYDROXY 2 [facility] INCLUDES INC INC FRACTIONS IF PERFORMED PRTBLE E0431 KAMALJIT SEVILLARELL GASEOUS 2 HOME HOME O2 SYS MEDICAL MEDICAL RENT; EQUIPME EQUIPME FLWMTR HUMIDFR&M ASK O2 CONC 1 E1390 KAMALJIT KAMALJIT DEL PORT 2 HOME HOME 85%/>02 MEDICAL MEDICAL CONC AT EQUIPME EQUIPME PRSC FLW RATE ADMN SET A7003 YOUR YOUR SM VOL 2 [facility] P[facility] NEBULIZR DISPBL PRTBLE E0431 KAMALJIT SEVILLARELL [...] YOUR YOUR SM VOL 2 PHARMACY PHARMACY NONFILfor; to (do) LLC PNEUMAT NEBULIZR DISPBL 25 78122 KENYATTA YOU HYDROXY 2 [facility] INCLUDES INC INC FRACTIONS IF PERFORMED CYANOCOBA 65804 KENYATTA YOU RAMBO 2 [facility]OS[facility] VITAMIN INC INC B-12 COMPREHEN 73557 KENYATTA YOU SIVE 2 [facility] METABOLIC INC INC PANEL LIPID 04770 KENYATTA YOU PANEL 2 [place] [address] KENYATTA YOU THYROID 2 [facility]OS[facility] STIMULATI INC INC NG HORMONE TSH BLOOD 25745 KENYATTA YOU COUNT 2 MEM HOSP MEM [...] NONFILTR LLC LLC PNEUMAT NEBULIZR DISP HOSPITAL 72[address] [facility] 2 [facility] DAY INTERNAL MANAGEMEN MED T 30 MIN/< MYOCARDIA 21897 [facility] 2 [facility] MULTIPLE CARDIOLOG STUDIES Y CLINIC SBSQ [address] CARE/DAY INTERNAL 25 MED MINUTES SBSQ [id number] CARE/DAY INTERNAL 25 MED MINUTES SBSQ [id number] CARE/DAY INTERNAL 25 MED [address] AMB A0427 [facility] SERVICE 2 AMBULANCE AMBULANCE ALS SERVICE SERVICE EMERGENCY TRANSPORT LEVEL 1 CRITICAL 71462 [facility] 2 EMERGENCY ILL/INJUR SERVICES ED PATIENT INIT 30-74 MIN [facility]OLOGI 34541 [facility] GUAJ[facility] C 2 MEDICAL RHEA EXAMINATI IMAGING ON CHEST ASS SINGLE VIEW FRONTAL GROUND A0425 GENERAL ACUTE HOSPITALEA 2 AMBULANCE AMBULANCE PER SERVICE SERVICE STATUTE MILE INITIAL [address] CARE/DAY INTERNAL 50 MED MINUTES PRTBLE [...] YOUR YOUR SM VOL 2 [facility] NEBULIZR DISPBL BLOOD 85332 KENYATTA YOU COUNT 2 [facility] COMPLETE INC INC AUTO&AUTO DIFRNTL WBC BASIC 97060 [place] YOU METABOLIC 2 [facility] PANEL INC INC CALCIUM TOTAL O2 CONC 1 E1390 KAMALJIT MARI DEL PORT 2 HOME HOME 85%/>02 MEDICAL MEDICAL CONC AT EQUIPME EQUIPME PRSC FLW RATE PRTBLE E0431 KAMALJIT MARI GASEOUS 2 HOME HOME O2 SYS MEDICAL MEDICAL RENT; EQUIPME EQUIPME FLWMTR [facility] [address] [facility] 2 JR CHRYSTAL SANTOYO CHRYSTAL DAY MANAGEMEN T 30 MIN/< SBSQ [id number] [place] CARE/DAY INTERNAL 25 MED MINUTES SBSQ [phone] [place] CARE/DAY INTERNAL 25 MED MINUTES SBSQ 27461 [facility] 2 JR CHRYSTAL JARRELL CARE/DAY 25 MINUTES SBSQ 91478 [facility] 2 JR CHRYSTAL JARRELL CARE/DAY 35 MINUTES GROUND A0425 [facility] 2 AMBULANCE AMBULANCE PER SERVICE SERVICE STATUTE MILE INITIAL 58530 [facility] 2 JR CHRYSTAL JARRELL CARE/DAY 70 MINUTES ECG 77119 HEBER BUCK ROUTINE 2 DIONNA DIONNA ECG W/LEAST 12 LDS I&R ONLY INTUBATIO 65544 HEBER BUCK N 2 DIONNA DIONNA ENDOTRACH EAL EMERGENCY PROCEDURE CRITICAL 33193 [facility] BUCK CARE 2 DIONNA DIONNA ILL/INJUR ED PATIENT INIT 30-74 MIN AMB A0427 [facility] SERVICE 2 AMBULANCE AMBULANCE ALS SERVICE SERVICE EMERGENCY TRANSPORT LEVEL 1 CONT 9671 [place] YOU INVASIVE 2 [facility] MECH VENT INC INC < 96 CONSECUTI VE HOURS INSERTION 9604 [place] MÉNDEZON OF 2 [facility] ENDOTRACH INC INC EAL TUBE O2 CONC 1 E1390 KAMALJIT MARI DEL PORT 1 HOME HOME 85%/>02 MEDICAL MEDICAL CONC AT EQUIPME EQUIPME PRSC FLW RATE PRTBLE E0431 KAMALJIT KAMALJIT GASEOUS 1 HOME HOME O2 SYS MEDICAL MEDICAL RENT; EQUIPME EQUIPME FLWMTR HUMIDFR&M ASK RADIOLOGI 26545 RUSS RUSS C 1 RHEA RHEA EXAMINATI ON CHEST SINGLE VIEW FRONTAL ECG 14227 HEBER HAWTHORNEEY ROUTINE 1 DIONNA DIONNA ECG W/LEAST 12 LDS I&R ONLY PRTBLE E0431 KAMALJIT KAMALJIT GASEOUS 1 HOME HOME O2 SYS MEDICAL MEDICAL RENT; EQUIPME EQUIPME FLWMTR HUMIDFR&M ASK O2 CONC 1 E1390 KAMALJIT KAMALJIT DEL PORT 1 HOME HOME 85%/>02 MEDICAL MEDICAL CONC AT EQUIPME EQUIPME PRSC FLW RATE BASIC 78540 [place] YOU METABOLIC 1 [facility] PANEL INC INC CALCIUM TOTAL ECG 92549 [place] YOU ROUTINE 1 [facility] ECG INC INC W/LEAST 12 LDS TRCG ONLY W/O I&R PRESSURIZ 76785 K[place] YOU ED/NONPRE 1 [facility] SSURIZED INC INC INHALATIO N TREATMENT BLOOD 95976 [place] YOU COUNT 1 [facility] COMPLETE INC INC AUTO&AUTO DIFRNTL WBC CULTURE 98909 [place] YOU BACTERIAL 1 [facility] BLOOD INC INC AEROBIC W/ID ISOLATES RADIOLOGI 21480 ERIC SOLANO C EXAM 1 MEDICAL RHEA CHEST 2 IMAGING VIEWS ASS FRONTAL&L ATERAL ECG 05362 [place] JEFFREY ROUTINE 1 [facility] W/LEAST P 12 LDS I&R ONLY PRTBLE E0431 KAMALJIT KAMALJIT GASEOUS 1 HOME HOME O2 SYS MEDICAL MEDICAL RENT; EQUIPME EQUIPME FLWMTR HUMIDFR&M ASK O2 CONC 1 E1390 KAMALJIT MARTINEZ PORT 1 HOME HOME 85%/>02 MEDICAL MEDICAL CONC AT EQUIPME EQUIPME PRSC FLW RATE AMB A0422 [facility] OXYGEN&O2 1 AMBULANCE AMBULANCE SUPPLIES SERVICE SERVICE LIFE SUSTAININ G SITUATION AMB A0427 [facility] SERVICE 1 AMBULANCE AMBULANCE ALS SERVICE SERVICE EMERGENCY TRANSPORT LEVEL 1 RADIOLOGI 23672 [facility] 1 MEDICAL RHEA EXAMINATI IMAGING ON CHEST ASS SINGLE VIEW FRONTAL GROUND A0425 [facility] MILEAGE 1 AMBULANCE AMBULANCE PER SERVICE SERVICE STATUTE MILE ALS A0398 [facility] ROUTINE 1 AMBULANCE AMBULANCE DISPOSABL SERVICE SERVICE E SUPPLIES ECG 14939 NILSA SILVERIO ROUTINE 1 EMERGENCY III CHRYSTAL [...] MEDICAL RENT; EQUIPME EQUIPME FLWMTR HUMIDFR&M [facility] [address] [facility] DISCHARGE 1 NATHANIEL DAY MED CTR MANAGEMEN T > 30 MIN SBSQ 00257 [facility] 1 NATHANIEL CARE/DAY MED CTR 25 MINUTES SBSQ 44262 [facility] 1 NATHANIEL CARE/DAY MED CTR [address]ES [address] [facility] ROUTINE 1 NATHANIEL GAR ECG W/LEAST PHYSICIAN 12 LDS S I&R ONLY ECG [address] BOB ROUTINE 1 NATHANIEL GAR ECG W/LEAST PHYSICIAN 12 LDS S I&R ONLY ECHO [address] [facility] TTHRC R-T 1 NATHANIEL TORIBIO 2D W/WOM-MOD PHYSICIAN E COMPL S SPEC&COLR D INITIAL 35724 [facility] 1 NATHANIEL CARE/DAY MED CTR 70 MINUTES ALS A0398 FIRE DEPT FIRE DEPT ROUTINE 1 OF OF DISPOSABL NAFISA SKELTON E DAYTO DAYTO SUPPLIES GROUND A0425 FIRE DEPT FIRE DEPT MILEAGE 1 OF OF PER NAFISA SKELTON STATUTE DAYTO DAYTO MILE ECG 20968 DIAGNOSTI BOB ROUTINE 1 C GAR ECG CARDIOLOG W/LEAST ISTS INC 12 LDS I&R ONLY RADIOLOGI 52914 RADIOLOGY VIANEY C EXAM 1 TUS CHEST 2 ASSOCIATE VIEWS S PSC FRONTAL&L ATERAL AMB A0422 FIRE DEPT FIRE DEPT OXYGEN&O2 1 OF OF SUPPLIES NAFISA SKELTON LIFE DAYTO DAYTO SUSTAININ G SITUATION AMB A0427 FIRE DEPT FIRE DEPT SERVICE 1 OF OF ALS NAFISA SKELTON EMERGENCY DAYTO DAYTO TRANSPORT LEVEL 1 O2 CONC 1 E1390 K[facility]ALJIT [facility] 1 HOME MED HOME MED 85%/>02 EQUIP. L EQUIP. L CONC AT [facility] FLW RATE PRTBLE E0431 KAMALJIT MARI GASEOUS 1 HOME MED HOME MED O2 SYS EQUIP. L EQUIP. L [facility]; [facility] E0431 KAMALJIT MARI GASEOUS 1 HOME MED HOME MED O2 SYS EQUIP. L EQUIP. L RENT; [facility] HUMIDFR&M ASK O2 CONC 1 E1390 KAMALJIT MARI [facility] 1 HOME MED HOME MED 85%/>02 EQUIP. L EQUIP. L CONC AT [facility] FLW RATE O2 CONC 1 E1390 KAMALJIT MARI [facility] 1 HOME MED HOME MED 85%/>02 EQUIP. L EQUIP. L CONC AT [facility] FLW RATE PRTBLE E0431 KAMALJIT KAMALJIT GASEOUS 1 HOME MED HOME MED O2 SYS EQUIP. L EQUIP. L RENT; [facility] HUMIDFR&M ASK RADIOLOGI [address] C 1 NATHANIEL ARMSTRONG EXAMINATI FT FT ON CHEST BOBBY ROSALES SINGLE VIEW FRONTAL THER [address] PROPH/DX 1 NATHANIELROSA ARMSTRONG NJX IV FT FT PUSH BOBBY ROSALES SINGLE/1S T SBST/DRUG GROUND A0425 FIRE DEPT FIRE DEPT MILEAGE 1 OF OF PER NAFISA SKELTON STATUTE DAYTO DAYTO MILE ALS A0398 FIRE DEPT FIRE DEPT ROUTINE 1 OF OF DISPOSABL NAFISA SKELTON E DAYTO DAYTO SUPPLIES ECG [address] ROUTINE 1 NATHANIEL ARMSTRONG ECG FT FT W/LEAST BOBBY ROSALES 12 LDS TRCG ONLY W/O I&[place] [address] TROPONIN 1 NATHANIEL ARMSTRONG QUANTITAT FT FT CARLOS BOBBY ROSALES BLOOD [address] COUNT 1 NATHANIEL ARMSTRONG COMPLETE FT FT AUTO&AUTO BOBBY ROSALES DIFRNTL WBC ECG 84048 DIAGNOSTI MCDANNOLD ROUTINE 1 C PEG ECG CARDIOLOG W/LEAST ISTS INC 12 LDS I&R ONLY NATRIURET [address] IC 1 NATHANIEL ARMSTRONG PEPTIDE FT FT BOBBY BOBBY THERAPEUT [address] IC 1 NATHANIEL CANTUTH INJECTION FT FT IV PUSH BOBBY ROSALES EACH NEW DRUG AMB A0427 FIRE DEPT FIRE DEPT SERVICE 1 OF OF ALS NAFISA SKELTON EMERGENCY DAYTO DAYTO TRANSPORT LEVEL 1 AMB A0422 FIRE DEPT FIRE DEPT OXYGEN&O2 1 OF OF SUPPLIES NAFISA SKELTON LIFE DAYTO DAYTO SUSTAININ G SITUATION BASIC [address] METABOLIC 1 NATHANIEL ARMSTRONG PANEL FT FT CALCIUM BOBBY BOBBY TOTAL THER [address] PROPH/DX 1 NATHANIEL ARMSTRONG NJX EA FT FT SEQL IV BOBBY BOBBY PUSH SBST/DRUG FAC O2 CONC 1 E1390 KAMALJIT MARI [facility] 1 HOME MED HOME MED 85%/>02 EQUIP. L EQUIP. L CONC AT [facility] FLW RATE PRTBLE E0431 KAMALJIT MARI GASEOUS 1 HOME MED HOME MED O2 SYS EQUIP. L EQUIP. L RENT; [facility] HUMIDFR&M ASK PRTBLE E0431 KAMALJIT MARI GASEOUS 1 HOME MED HOME MED O2 SYS EQUIP. L EQUIP. L RENT; [facility] HUMIDFR&M ASK O2 CONC 1 E1390 KAMALJIT MARI [facility] 1 HOME MED HOME MED 85%/>02 EQUIP. L EQUIP. L CONC AT [facility] FLW RATE O2 CONC 1 E1390 [facility] HOME MED HOME MED 85%/>02 EQUIP. L EQUIP. L CONC AT [facility] FLW RATE PRTBLE E0431 KAMALJIT MARI GASEOUS 1 HOME MED HOME MED O2 SYS EQUIP. L EQUIP. L RENT; [facility] HUMIDFR&M [facility] 49267 [facility] 1 [facility] DAY MED CTR MANAGEMEN T 30 MIN/< SBSQ 37304 [facility] 1 [facility] CARE/DAY MED CTR 25 MINUTES ECG 82940 DIAGNOSMYRTLE PATINOOLD ROUTINE 1 C PEG ECG CARDIOLOG W/LEAST ISTS INC 12 LDS I&R ONLY ECG 08137 DIAGNOSTI MCDANNOLD ROUTINE 1 C PEG ECG CARDIOLOG W/LEAST ISTS INC 12 LDS I&[place] [address] [facility] 1 MICAH HY CHEST ASSOCIATE W/CONTRAS S PSC T/NONCONT RAST RADIOLOGI 46215 RADIOLOGY SCHMITTER C 1 MICAH EXAMINATI ASSOCIATE [...] 85%/>02 EQUIP. L EQUIP. L CONC AT [facility] FLW RATE PRTBLE E0431 KAMALJIT MARI GASEOUS 0 HOME MED HOME MED O2 SYS EQUIP. L EQUIP. L RENT; [facility] HUMIDFR&M [facility] 22965 [facility] DISCHARGE 0 [facility] MED CTR MANAGEMEN T > 30 MIN SBS 74429 [facility] 0 [facility] CARE/DAY MED CTR 25 MINUTES SBS 60961 [facility] 0 [facility] CARE/DAY MED CTR 25 MINUTES AMB A0422 FIRE DEPT FIRE DEPT OXYGEN&O2 0 OF OF SUPPLIES NAFISA SKELTON LIFE DAYTO DAYTO SUSTAININ G SITUATION CRITICAL 51436 [facility]AL CARE 0 CARE LISA ILL/INJUR PHYS ED [facility] PATIENT INIT 30-74 MIN AMB A0427 FIRE DEPT FIRE DEPT SERVICE 0 OF OF JAIDEN SKELTON EMERGENCY DAYTO DAYTO TRANSPORT LEVEL 1 RADIOLOGI 41143 RADIOLOGY NEILS LEO C 0 EXAMINATI ASSOCIATE ON CHEST S PSC SINGLE VIEW FRONTAL GROUND A0425 FIRE DEPT FIRE DEPT MILEAGE 0 OF OF PER NAFISA SKELTON STATUTE DAYTO DAYTO MILE ALS A0398 FIRE DEPT FIRE DEPT ROUTINE 0 OF OF DISPOSABL NAFISA SKELTON E DAYTO DAYTO SUPPLIES INITIAL 06978 [facility] 0 [facility] CARE/DAY MED CTR 50 MINUTES ECG 90017 DIAGNOSTI RO NIV ROUTINE 0 C ECG CARDIOLOG W/LEAST ISTS INC 12 LDS I&R ONLY PRTBLE E0431 KAMALJIT MARI GASEOUS 0 HOME MED HOME MED O2 SYS EQUIP. L EQUIP. L RENT; [facility] HUMIDFR&M ASK O2 CONC 1 E1390 [facility]IT [facility] 0 HOME MED HOME MED 85%/>02 EQUIP. L EQUIP. L CONC AT [facility] [address] [facility] DISCHARGE 0 NATHANIEL DAY MED CTR MANAGEMEN T > 30 MIN SBSQ 28750 [facility] 0 NATHANIEL CARE/DAY MED CTR 25 MINUTES RADIOLOGI 28092 RADIOLOGY VIANEY C EXAM 0 TUS CHEST 2 ASSOCIATE VIEWS S PSC FRONTAL&[place] [address] RADIOLOGY RANJIT LIMITED/L 0 MAURO OCALIZED ASSOCIATE FOLLOW UP S PSC STUDY INITIAL 43349 [facility] 0 NATHANIEL CARE/DAY MED CTR 70 MINUTES RADIOLOGI 48244 RADIOLOGY SURESH BYR C 0 EXAMINATI ASSOCIATE ON CHEST S PSC SINGLE VIEW FRONTAL ALS A0398 FIRE DEPT FIRE DEPT ROUTINE 0 OF OF DISPOSABL NAFISA POTTERUUE E DAYTO DAYTO SUPPLIES GROUND A0425 FIRE DEPT FIRE DEPT MILEAGE 0 OF OF PER FRANCESCOE TARIQUUE STATUTE DAYTO DAYTO MILE ECG 59126 DIAGNOSTI JAYJAY NIV ROUTINE 0 C ECG CARDIOLOG W/LEAST ISTS INC 12 LDS I&R ONLY AMB A0422 FIRE DEPT FIRE DEPT OXYGEN&O2 0 OF OF SUPPLIES NAFISA MAYAE LIFE DAYTO DAYTO SUSTAININ G SITUATION CRITICAL 13184 [facility] 0 CARE ILL/INJUR PHYS ED [facility] PATIENT INIT 30-74 MIN AMB A0427 FIRE DEPT FIRE DEPT SERVICE 0 OF OF ALS FRANCESCOE TARIQUUE EMERGENCY DAYTO DAYTO TRANSPORT LEVEL 1 O2 CONC 1 E1390 [facility]RACHEL [facility] 0 HOME MED HOME MED 85%/>02 EQUIP. L EQUIP. L CONC AT [facility] FLW RATE PRTBLE E0431 KAMALJIT MARI GASEOUS 0 HOME MED HOME MED O2 SYS EQUIP. L EQUIP. L RENT; [facility] HUMIDFR&M ASK PRTBLE E0431 KAMALJIT KAMALJIT GASEOUS 0 HOME MED HOME MED O2 SYS EQUIP. L EQUIP. L RENT; [facility] HUMIDFR&M ASK O2 CONC 1 E1390 [facility]IT [facility] 0 HOME MED HOME MED 85%/>02 EQUIP. L [facility]. [facility] E1390 [facility]IT [facility] 0 HOME MED HOME MED 85%/>02 EQUIP. L [facility]QUIP. L [facility] KAMALJIT KAMALJIT GASEOUS 0 HOME MED HOME MED O2 SYS EQUIP. L EQUIP. L RENT; [facility] HUMIDFR&M ASK PRTBLE E0431 KAMALJIT KAMALJIT GASEOUS 0 HOME MED HOME MED O2 SYS EQUIP. EQUIP. RENT; [facility] HUMIDFR&M ASK O2 CONC 1 E1390 K[facility]JIT [facility] [place] 0 HOME MED HOME MED 85%/>02 EQUIP. [facility]IP. [facility] 1 E1390 [facility]IT [facility] 0 HOME MED HOME MED 85%/>02 EQUIP. EQUIP. [facility]04[facility] KAMALJIT KAMALJIT GASEOUS 0 HOME MED HOME MED O2 SYS EQUIP. EQUIP. RENT; [facility] HUMIDFR&M ASK PRTBLE E0431 KAMALJIT KAMALJIT GASEOUS 0 HOME MED HOME MED O2 SYS EQUIP. EQUIP. RENT; [facility] HUMIDFR&M ASK O2 CONC 1 E1390 K[facility]IT [facility] [place] 0 HOME MED HOME MED 85%/>02 EQUIP. EQUIP. [facility] 1 E1390 [facility]IT [facility] [place] 0 HOME MED HOME MED 85%/>02 EQUIP. EQUIP. CONC AT [facility] FLW RATE PRTBLE E0431 KAMALJIT KAMALJIT GASEOUS 0 HOME MED HOME MED O2 SYS EQUIP. EQUIP. RENT; [facility] HUMIDFR&M ASK PRTBLE E0431 KAMALJIT KAMALJIT GASEOUS 0 HOME MED HOME MED O2 SYS EQUIP. EQUIP. RENT; [facility] FLWMTR HUMIDFR&M ASK O2 CONC 1 E1390 K[facility]ALJIT [facility]I [place] 0 HOME MED HOME MED 85%/>02 EQUIP. EQUIP. CONC AT [facility] FLW RATE ANESTHESI 97198 INDEPENDE CHAPISROOR, A EYE 0 NT ALAM LENS ANESTHESI SURGERY OLOGIST CATARACT 21956 [facility], REMOVAL 0 I EYE [facility] CATARACT 55227 [facility], REMOVAL 0 I EYE [facility] ANESTHESI 98385 INDEPENDE [place], A EYE 0 NT FAVIOLA LENS ANESTHESI J SURGERY OLOGIST OPH BMTRY 59918 [facility], PRTL 0 I EYE [facility] INTRFRMTR Y IO LENS PWR JAIRON OPHTH 39552 [facility] 9 I EYE CANDY M[facility] COMPRHNSV ESTAB PT 1/> HOSPITAL 26506 PATIENT [facility], DISCHARGE 9 FIRST CASSANDRA G DAY PHYS MANAGEMEN T 30 MIN/< INITIAL 12508 PATIENT [facility] 9 FIRST CASSANDRA G CARE/DAY PHYS 70 MINUTES RADIOLOGI 45266 RADIOLOGY MARTINEZ C 9 ROBERT Shea EXAMINATI ASSOCIATE ON CHEST S PSC SINGLE VIEW FRONTAL RHYTHM 85395 EMERGENCY HERFEL, ECG 1-3 9 CARE AGUILAR U LEADS PHYS INTERPRET [place] & [place] ECG 12[address] DIAGNOSTI RO, ROUTINE 9 C NIVA ECG CARDIOLOG W/LEAST ISTS INC 12 [facility] I&R ONLY HOSPITAL 79524 PATIENT [facility], DISCHARGE 9 FIRST [place] C DAY PHYS MANAGEMEN T 30 MIN/< RADIOLOGI 21492 RADIOLOGY LAIJanet C EXAM 9 KO H CHEST 2 ASSOCIATE VIEWS S PSC FRONTAL&L ATERAL SBSQ 82788 PATIENT [facility] 9 FIRST [place] C CARE/DAY PHYS 25 MINUTES SBSQ 20955 PATIENT [facility] 9 FIRST [place] C CARE/DAY PHYS 25 MINUTES SBSQ 92353 PATIENT [facility] 9 FIRST [place] C CARE/DAY PHYS 25 MINUTES SBSQ 52059 PATIENT [facility] 9 FIRST [place] C CARE/DAY PHYS 25 MINUTES INITIAL 78238 PATIENT [facility] 9 [place] CARE/DAY PHYS 50 MINUTES GROUND A0425 Hypr[facility] MILEAGE 9 CO FIRE CO FIRE PER PROTECTIO PROTECTIO STATUTE N DIST #1 N DIST #1 MILE AMBULANCE A0429 [facility] 9 CO FIRE CO FIRE BLS PROTECTIO PROTECTIO EMERGENCY N DIST #1 N DIST #1 TRANSPORT RADIOLOGI 70863 RADIOLOGY Olegario FOX 9 PALLAVI R EXAMINAMYRTLE ASSOCIATE ON CHEST S PSC SINGLE VIEW FRONTAL ECG 61436 DIAGNOSMYRTLE RO, ROUTINE 9 C NIVA ECG CARDIOLOG W/LEAST ISTS INC 12 LDS I&R ONLY AMB A0422 [facility] OXYGEN&O2 9 CO FIRE CO FIRE SUPPLIES PROTECTIO PROTECTIO LIFE N DIST #1 N DIST #1 SUSTAININ G SITUATION [facility] 85757 PATIENT [facility] 9 [place] DAY PHYS MANAGEMEN T 30 MIN/< SBSQ 14779 PATIENT [place] [address] [place] CARE/DAY PHYS 25 MINUTES SBSQ 18260 PATIENT [facility] 9 FIRST [place] C CARE/DAY PHYS 25 MINUTES SBSQ 61494 PATIENT [facility] 9 [place] CARE/DAY PHYS 25 MINUTES ECG 99431 DIAGNOSMYRTLE WHITING ROUTINE 9 C , TATE J ECG CARDIOLOG W/LEAST ISTS INC 12 LDS I&R ONLY ECG 46066 DIAGNOSTI YOBANYANNOLD ROUTINE 9 C , TATE J ECG CARDIOLOG W/LEAST ISTS INC 12 LDS I&R ONLY RADIOLOGI 80118 RADIOLOGY Olegario STONE EXAM 9 CHEST 2 ASSOCIATE NATHANIEL BLACKMON S PSC A FRONTAL&L ATERAL RHYTHM 52456 EMERGENCY JUAN ANTONIO, ECG 1-3 9 CARE MIMI D LEADS PHYS INTERPRET [place] REPRT ON GROUND A0425 [facility] MILEAGE 9 CO FIRE CO FIRE PER PROTECTIO PROTECTIO STATUTE N DIST #1 N DIST #1 MILE ALS A0398 [facility] ROUTINE 9 CO FIRE CO FIRE DISPOSABL PROTECTIO PROTECTIO E N DIST #1 N DIST #1 SUPPLIES INITIAL 91194 PATIENT [facility] 9 [place] CARE/DAY PHYS 50 MINUTES AMB A0427 [facility] 9 CO FIRE CO FIRE ALS PROTECTIO PROTECTIO EMERGENCY N DIST #1 N DIST #1 TRANSPORT LEVEL 1 OPHTH 54932 JIMBO ALEGRIA, MEDICAL 9 VISION CARLA M XM&EVAL COMPRE NEW PT 1/> VST BASIC 32838 KENYATTA YOU METABOLIC 9 [facility] PANEL INC INC CALCIUM TOTAL LIPID 62422 KENYATTA YOU PANEL 9 [facility] INC INC HEPATIC 70201 KENYATTA YOU FUNCTION 9 [facility] PANEL INC INC HOSPITAL 78916 [facility] DISCHARGE 9 JR, J V JR, J V DAY MANAGEMEN T 30 MIN/< SBSQ 04590 [facility] 9 JR, J V JR, J V CARE/DAY 15 MINUTES SBSQ 50915 [facility] 9 JR, J V JR, J V CARE/DAY [address] [facility] OXYGEN&O2 9 AMBULANCE AMBULANCE SUPPLIES SERVICE SERVICE LIFE SUSTAININ G SITUATION AMB A0427 [facility] SERVICE 9 AMBULANCE AMBULANCE ALS SERVICE SERVICE EMERGENCY TRANSPORT LEVEL 1 RADIOLOGI 22381 Olegario MOLINA 9 MEDICAL CAROL EXAMINATI IMAGING ON CHEST ASSOCIATE SINGLE S VIEW FRONTAL INITIAL 11695 [facility] 9 JR, J V JR, J V CARE/DAY [address] [facility] MILEA 9 AMBULANCE AMBULANCE PER SERVICE SERVICE STATUTE MILE ECG 57090 KENYATTA ADAMS, ROUTINE 9 [facility] W/LEAST PROF SERV 12 LDS I&R ONLY OBSERVATI 49542 Claudia MITCHELL ON CARE 9 LUIS ALBERTO Melvin DISCHARGE PSC MANAGEMEN T INITIAL 25383 Claudia MITCHELL OBSERVATI 9 LUIS ALBERTO Melvin ON PSC CARE/DAY 50 MINUTES GROUND A0425 [facility] 9 AMBULANCE AMBULANCE PER SERVICE SERVICE STATUTE MILE RADIOLOGI 06750 Olegario MOLINA 9 MEDICAL CAROL EXAMINATI IMAGING ON CHEST ASSOCIATE SINGLE S VIEW FRONTAL ECG 59369 KENYATTA JEFFREY ROUTINE 9 [facility] CORDELL F W/LEAST PROF SERV 12 LDS I&R ONLY AMB A0422 [facility] OXYGEN&O2 9 AMBULANCE AMBULANCE SUPPLIES SERVICE SERVICE LIFE SUSTAININ G SITUATION AMB A0427 [facility] SERVICE 9 AMBULANCE AMBULANCE ALS SERVICE SERVICE EMERGENCY TRANSPORT LEVEL 1 AMB A0427 [facility] SERVICE 9 AMBULANCE AMBULANCE ALS SERVICE SERVICE EMERGENCY TRANSPORT LEVEL 1 AMB A0422 [facility] OXYGEN&O2 9 AMBULANCE AMBULANCE SUPPLIES SERVICE SERVICE LIFE SUSTAININ G SITUATION RADIOLOGI 11887 Olegario REYES EXAM 9 MEDICAL GOERGE P CHEST 2 IMAGING VIEWS ASSOCIATE FRONTAL&L S ATERAL BLOOD 75851 KENYATTA YOU COUNT 9 [facility] COMPLETE INC INC AUTO&AUTO DIFRNTL WBC BLOOD 92868 KENYATTA YOU GASES ANY 9 [facility] INC INC COMBINATI ON PH PCO2 PO2 CO2 HCO3 COMPREHEN 39167 KENYATTA YOU SIVE 9 [facility] METABOLIC INC INC PANEL GROUND A0425 [facility] 9 AMBULANCE AMBULANCE PER SERVICE SERVICE STATUTE MILE ECG 24256 KENYATTA YOU ROUTINE 8 [facility] ECG INC INC W/LEAST 12 LDS TRCG ONLY W/O I&R ECG 95956 KENYATTA ADAMS, ROUTINE 8 [facility] W/LEAST PROF SERV 12 LDS I&R ONLY PRESSURIZ 07166 KENYATTA YOU ED/NONPRE 8 [facility] SSURIZED INC INC INHALATIO N TREATMENT PRESSURIZ 56876 KENYATTA YOU ED/NONPRE 8 [facility] SSURIZED INC INC INHALATIO N TREATMENT NATRIURET 37527 K[facility]TA YOU IC 8 [facility] PEPTIDE INC INC CREATINE 14068 KENYATTA YOU KINASE MB 8 [facility] FRACTION INC INC ONLY RHYTHM 51254 KENYATTA YOU ECG 1-3 8 [facility] LEADS INC INC TRACING ONLY W/O I&R BLOOD 87413 KENYATTA YOU COUNT 8 [facility] COMPLETE INC INC AUTO&[place] [address] KENYATTA YOU TROPONIN 8 [facility] QUANTITAT INC INC CARLOS IV NFUS 09266 KENYATTA YOU THER 8 [facility] PROPH/DX INC INC EA HR CREATINE 00615 KENYATTA YOU KINASE 8 [facility] TOTAL INC INC BASIC 93302 KENYATTA YOU METABOLIC 8 [facility] [place] [address] KENYATTA YOU THER 8 [facility] PROPH/DX INC INC 1ST >1 HR RADIOLOGI 80082 KENYATTA YOU C 8 [facility] EXAMINATI INC INC ON CHEST SINGLE VIEW FRONTAL GROUND A0425 LINDA LINDA MILEAGE 8 CO CO PER AMBULANCE AMBULANCE STATUTE SERVICE SERVICE MILE AMBULANCE A0429 LINDA LINDA SERVICE 8 CO CO BLS AMBULANCE AMBULANCE EMERGENCY SERVICE SERVICE TRANSPORT S A0382 LINDA LINDA ROUTINE 8 CO CO DISPOSABL AMBULANCE AMBULANCE E SERVICE SERVICE [facility] 70859 [facility] DISCHARGE 8 Jamee SANTOYO JR, J V DAY MANAGEMEN T 30 MIN/< SBSQ 04691 [facility] 8 Jamee SANTOYO JR, J V CARE/DAY 15 MINUTES SBSQ 47631 [facility] 8 Jamee SANTOYO JR, J V CARE/DAY 15 MINUTES SBSQ [address] E CARE/DAY EMD 25 MINUTES SBSQ [address] E CARE/DAY EMD 25 MINUTES SBSQ [address] E CARE/DAY EMD 25 MINUTES AMB A0422 [facility] CERVANTES OXYGEN&O2 8 AMBULANCE AMBULANCE SUPPLIES SERVICE SERVICE LIFE SUSTAININ G SITUATION AMB A0427 [facility] BILLY SERVICE 8 AMBULANCE AMBULANCE ALS SERVICE SERVICE EMERGENCY TRANSPORT LEVEL 1 INITIAL 76113 [facility] 8 [place] MARCELINA E CARE/DAY EMD 50 MINUTES GROUND A0425 [facility] CERV[facility] MILEAGE 8 AMBULANCE AMBULANCE PER SERVICE SERVICE STATUTE MILE RADIOLOGI 55431 Olegario REYES EXAM 8 MEDICAL [place] P CHEST 2 IMAGING VIEWS ASSOCIATE FRONTAL&[place] [address] [facility] TROPONIN [address] [place] [address] QUANTITAT [facility] CARLOS BLOOD 98716 [facility] COUNT [address] [place] [address] COMPLETE [facility] AUTO&AUTO DIFRNTL WBC THER 20353 [facility] PROPH/DX [address] [place] [address] NJX EA [facility] SEQL IV PUSH SBST/DRUG FIBRIN 64106 [facility] DGRADJ [address] [place] [address] PRODUCTS [facility] D-DIMER ULTRASENS ITIVE THER 77425 [facility] PROPH/DX [address] [place] [address] NJX IV [facility] PUSH 1ST SBST/DRUG GROUND A0425 LINDA LINDA MILEAGE 8 CO CO PER AMBULANCE AMBULANCE STATUTE SERVICE SERVICE MILE AMBULANCE A0429 LINDA LINDA SERVICE 8 CO CO BLS AMBULANCE AMBULANCE EMERGENCY SERVICE SERVICE TRANSPORT ECG 90527 [facility] ROUTINE [address] [place] [address] ECG [facility] W/LEAST 12 LDS TRCG ONLY W/O I&R RADIOLOGI 34503 RADIOLOGY Olegario GREENFIELDINAMYRTLE ASSOCIATE ON CHEST S PSC SINGLE VIEW FRONTAL AMB A0422 LINDA LINDA OXYGEN&O2 8 CO CO SUPPLIES AMBULANCE AMBULANCE LIFE SERVICE SERVICE SUSTAININ G SITUATION BASIC 88260 [facility] METABOLIC [address] [place] [address] PANEL [facility] CALCIUM TOTAL [facility] 80740 PATIENT KLAUDIA, DISCHARGE 8 FIRST CASSANDRA G DAY PHYS MANAGEMEN T 30 MIN/< SBSQ 99167 PATIENT [facility] 8 FIRST [place]DEN CARE/DAY PHYS 15 MINUTES DOPPLER 36540 CARDIOLOG GARCIA, ECHOCARD 8 Y SHELBI D PULSE ASSOCIATE WAVE S W/SPECTRA L DISPLAY ECHO 94862 CARDIOLOG GARCIA, TRANSTHOR 8 Y SHELBI D AC R-T 2D ASSOCIATE W/WO S M-MODE REC COMP INITIAL 76096 PATIENT [facility] 8 FIRST [place] CARE/DAY PHYS 50 MINUTES BLS A0382 LINDA LINDA ROUTINE 8 CO CO DISPOSABL AMBULANCE AMBULANCE E SERVICE SERVICE SUPPLIES GROUND A0425 LINDA LINDA MILEAGE 8 CO CO PER AMBULANCE AMBULANCE STATUTE SERVICE SERVICE MILE AMBULANCE A0429 LINDA LINDA SERVICE 8 CO CO BLS AMBULANCE AMBULANCE EMERGENCY SERVICE SERVICE TRANSPORT ECG 08808 DEJON ROJAS, ROUTINE 8 C FAUSTINO ECG CARDIOLOG W/LEAST ISTS INC 12 LDS I&R ONLY RADIOLOGI 50489 RADIOLOGY NEILS, C EXAM 8 NOEMY W CHEST 2 ASSOCIATE VIEWS S PSC FRONTAL&L ATERAL RADIOLOGI 6[address] [facility] ST [place] C EXAM 8 [facility] CHEST 2 EAST EAST VIEWS FRONTAL&L ATERAL BLOOD 76670 [facility] COUNT [address] [place] [address] COMPLETE [facility] [place] [address] [facility] TROPONIN [address] [place] [address] QUANTITAT [facility] CARLOS ECG 16300 DEJON WHITING ROUTINE 8 C , TATE J ECG CARDIOLOG W/LEAST ISTS INC 12 LDS I&R ONLY AMBULANCE A0429 LINDA LINDA SERVICE 8 CO CO BLS AMBULANCE AMBULANCE EMERGENCY SERVICE SERVICE TRANSPORT ECG [address] KE ROUTINE 8 [facility] ECG [facility] W/LEAST 12 LDS TRCG ONLY W/O I&R GROUND A0425 LINDA LINDA MILEAGE 8 CO CO PER AMBULANCE AMBULANCE STATUTE SERVICE SERVICE MILE THER 20260 [facility] ST [place] PROPH/DX [address] [place] [address] NJX IV [facility] EAST PUSH 1ST SBST/DRUG BASIC [address] LU METABOLIC 8 [facility] PANEL EAST EAST CALCIUM TOTAL BASIC 46894 PATIENT KALFAS, METABOLIC 8 [facility] [place] C PANEL PHYS CALCIUM TOTAL LIPID 16035 PATIENT KALFAS, PANEL 8 [facility] [place] C PHYS ECG 18982 KENYATTA ADAMS, ROUTINE 8 [facility] W/LEAST PROF SERV 12 LDS I&R ONLY CREATINE 54260 KENYATTA YOU KINASE MB 8 [facility] FRACTION INC INC ONLY PRESSURIZ 15753 KENYATTA YOU ED/NONPRE 8 [facility] SSURIZED [place] [address] KENYATTA YOU TROPONIN 8 [facility] QUANTITAT INC INC CARLOS BLOOD 18721 KENYATTA YOU COUNT 8 [facility] COMPLETE INC INC AUTO&AUTO DIFRNTL WBC BASIC 90599 KEN[facility]TA YOU METABOLIC 8 [facility] PANEL INC INC CALCIUM TOTAL RADIOLOGI 42106 Olegario REYES 8 PRADEEP Phillips EXAMINATI IMAGING ON CHEST ASSOCIATE SINGLE S VIEW FRONTAL GROUND A0425 LINDA LINDA MILEAGE 8 CO CO PER AMBULANCE AMBULANCE STATUTE SERVICE SERVICE MILE BLS A0382 LINDA LINDA ROUTINE 8 CO CO DISPOSABL AMBULANCE AMBULANCE E SERVICE SERVICE SUPPLIES ECG 96456 KENYATTA YOU ROUTINE 8 [facility] ECG INC INC W/LEAST 12 LDS TRCG ONLY W/O I&R AMBULANCE A0429 LINDA LINDA SERVICE 8 CO CO BLS AMBULANCE AMBULANCE EMERGENCY SERVICE SERVICE TRANSPORT CREATINE 12894 KENYATTA YOU KINASE 8 [facility] TOTAL INC INC HOSPITAL 18613 [facility] DISCHARGE 8 Jamee SANTOYO JR, J V DAY MANAGEMEN T 30 MIN/< SBSQ 50395 [facility] 8 Jamee SANTOYO JR, J V CARE/DAY 25 MINUTES INITIAL 23305 [facility] 8 Jamee SANTOYO JR, J V CARE/DAY 50 MINUTES INITIAL 28472 URR[facility]IA URRUTIA OBSERVATI 8 JR, J V JR, J V ON CARE/DAY 50 MINUTES RADIOLOGI 38611 Olegario REYES EXAM 8 [facility] CHEST 2 IMAGING VIEWS ASSOCIATE FRONTAL&L S ATERAL ECG 45226 KENYATTA JEFFREY ROUTINE 8 [facility] W/LEAST PROF SERV 12 LDS I&R ONLY BLS A0382 LINDA LINDA ROUTINE 8 CO CO DISPOSABL AMBULANCE AMBULANCE E SERVICE SERVICE SUPPLIES GROUND A0425 LINDA LINDA MILEAGE 8 CO CO PER AMBULANCE AMBULANCE STATUTE SERVICE SERVICE MILE AMBULANCE A0429 LINDA LINDA SERVICE 8 CO CO BLS AMBULANCE AMBULANCE EMERGENCY SERVICE SERVICE TRAN[facility]ORT [facility] 37679 EMILY DIAZ, DISCHARGE 8 [facility] E DAY EMD MANAGEMEN T 30 MIN/< RADIOLOGI 78280 Olegario REYES EXAM 8 [facility] P CHEST 2 IMAGING VIEWS ASSOCIATE FRONTAL&L S ATERAL SBSQ [address] E CARE/DAY EMD 25 MINUTES SBSQ [id number] E CARE/DAY EMD 25 MINUTES ECG 00332 KENYATTA DIAZ, ROUTINE 8 [facility] W/LEAST PROF SERV 12 LDS I&R ONLY SBSQ [address] E CARE/DAY EMD 25 MINUTES SBSQ [address] E CARE/DAY EMD 25 MINUTES ECG 44554 KENYATTA DIAZ, ROUTINE 8 [facility] [facility] W/LEAST PROF SERV 12 LDS I&R ONLY RADIOLOGI 63491 Olegario MOLINA 8 MEDICAL CAROL EXAMINATI IMAGING ON CHEST ASSOCIATE SINGLE S VIEW FRONTAL AMBULANCE [id number] LINDA LINDA SERVICE 8 CO CO BLS AMBULANCE AMBULANCE EMERGENCY SERVICE SERVICE TRANSPORT GROUND [id number] LINDA LINDA MILEAGE 8 CO CO PER AMBULANCE AMBULANCE STATUTE SERVICE SERVICE MILE BLS [id number] LINDA MCKEON ROUTINE 8 CO CO DISPOSABL AMBULANCE AMBULANCE E SERVICE SERVICE SUPPLIES INITIAL [id number] E CARE/DAY EMD 50 MINUTES CLOSED 33.26 Carol [PERCUTAN Russ EOUS] [NEEDLE] BIOPSY OF LUNG Encounters Encounter Start End Date Code Location Performer Type Date [facility] [place] Biggs 7 7 [facility]EN INC T EMERGENCY 57067 [place] 7 7 [facility] DEPARTMEN INC T VISIT HIGH/URGE NT SEVERITY EMERGENCY 00873 CURTIS GARCIA DEPT 7 7 PHYSICIAN U VISIT [facility] HIGH SEVERITY& THREAT [facility] [place] Biggs 7 7 [facility] INPATIENT INC EMERGENCY 87102 CURTIS ARAUZ DEPT 7 7 PHYSICIAN VISIT [facility] HIGH SEVERITY& THREAT [facility] [place] - 6 6 [facility] OUTPATIEN [facility] EMERGENCY 55793 [place] DEPT 6 6 [facility] VISIT INC HIGH SEVERITY& THREAT [facility] [place] - 6 6 [facility]EN [facility] T EMERGENCY 14799 [place] 6 6 [facility] DEPARTMEN INC T VISIT HIGH/URGE NT SEVERITY HOSPITAL [place] - 6 6 [facility] OUTPATIEN INC EMERGENCY 79617 [place] DEPT 6 6 [facility] VISIT INC HIGH SEVERITY& THREAT [facility] OFFICE 52890 [facility] OUTPATIEN 6 6 NATHANIEL Nova T VISIT MED CTR 15 MINUTES OFFICE 02930 [facility] OUTPATIEN 6 6 NATHANIEL T VISIT 25 PHYSICIAN MINUTES [facility] ST - 6 6 NATHANIEL OUTPATIEN [facility] OFFICE [address] ST JAYJAY NIV OUTPATIEN 6 6 NATHANIEL T VISIT 25 PHYSICIAN MINUTES S OFFICE [address] [facility] ANGELINA SPRING OUTPATIEN 6 6 NATHANIEL T VISIT 25 PHYSICIAN MINUTES S OFFICE 13305 [facility] OUTPATIEN 6 6 NATHANIEL YEAR LAT T VISIT 15 PHYSICIAN MINUTES S OFFICE 35409 BOVARD OUTPATIEN 5 5 NATHANIEL ALDAIR T VISIT [address] [facility] [address] - 5 5 [facility] 5 5 [facility] 4 4 [facility]ATHANIEL [facility]PATIEN [facility] - 4 4 [facility] - 4 4 [facility]ATHANIEL INPATIENT [facility] ST - 4 4 [facility] - 3 3 [facility]ATHANIEL OUTPATIEN MED 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 OFFICE 24937 [facility] OUTPATIEN 3 3 N JORDYN N JORDYN T VISIT MINUTES [facility] CHILDRENS - OTHER 3 3 [facility] MEDICAL C OFFICE 30869 SHO BERKOWITZ PRA OUTPATIEN 3 3 T VISIT 15 MINUTES OFFICE 82057 OUTPATI 3 3 NATHANIEL T VISIT 5 FT [facility] ST - 3 3 [facility] 92431 MAYNOR MCGUIRE OUTPATIEN 3 3 JAM JAM T VISIT 25 MINUTES [facility] ST - 3 3 NATHANIEL OUTPATIEN MEDICAL [facility] OFF[facility] 34199 [facility] OUTPATIEN 3 3 YEAR LAT YEAR LAT T VISIT 25 MINUTES HOSPITAL CHILDRENS - OTHER 3 3 [facility] OFFICE 50863 LEANDRA LEANDRA OUTPATIEN 3 3 N JORDYN N JORDYN T VISIT [address] - 3 3 NATHANIEL OUTPATIEN FT T [facility] ST - 3 3 NATHANIEL OUTPATIEN [facility] OFFICE [address] ST OUTPATIEN 3 3 NATHANIEL T VISIT 5 FT MINUTES [facility] OFFICE 36336 LEANDRA LEANDRA OUTPATIEN 3 3 N JORDYN N JORDYN T VISIT 15 MINUTES OFFICE 39823 [facility] 3 3 OWSKI M TAJSKI M T VISIT 15 MINUTES OFFICE 15396 LEANDRA LEANDRA OUTPATIEN 3 3 N JORDYN N JORDYN T VISIT 25 MINUTES OFFICE 22060 LEANDRA LEANDRA OUTPATIEN 3 3 N JORDYN N JORDYN T VISIT [address] - 3 3 NATHANIEL OUTPATIEN FT [facility] OFFICE 77492 BROWN-PUR BROWN-[facility] OUTPATIEN 3 3 YEAR LAT YEAR LAT T NEW 30 MINUTES OFFICE 38675 LEANDRA LEANDRA OUTPATIEN 3 3 N JORDYN N JORDYN T VISIT 25 MINUTES OFFICE 04758 LEANDRA LEANDRA OUTPATIEN 3 3 N JORDYN N JORDYN T VISIT 25 MINUTES OFFICE 62991 LEANDRA LEANDRA OUTPATIEN 3 3 N JORDYN N JORDYN T VISIT [address] [facility] 3 3 NATHANIEL SENTHIL ION NEW/ESTAB PHYSICIAN PATIENT S [address] - 3 3 NATHANIEL OUTPATIEN FT T BOBBY OFFICE 07720 ST OUTPATIEN 3 3 NATHANIEL T VISIT 5 FT MINUTES BOBBY OFFICE 04026 SHO SHAH OUTPATIEN 3 3 T NEW 45 MINUTES OFFICE 24908 LEANDRA KOKELMAN OUTPATIEN 3 3 N JORDYN N JORDYN T NEW 60 MINUTES OFFICE 88970 [facility] OUT[facility]IEN 3 3 JR. JONNY FULLER T VISIT 15 MINUTES HOSPITAL [place] - 3 3 [facility]IEN INC T OFFICE 96697 BARBRA JEFFREY OUTPATIEN 3 3 CHRYSTAL JARRELL T VISIT 15 MINUTES OFFICE 99474 [facility] OUTPATIEN 3 3 JR. JONNY FRANCOIS DEN T NEW 45 MINUTES Inpatient IMP Kenyatta REBELSON ([place]) 3 09:16 3 15:22 [facility] [place] - 3 3 [facility] OUTPATIEN [facility] T HOSPITAL [place] - 3 3 [facility] OUTPATIEN INC T Inpatient IMP Kenyatta Besson ([place]) 3 10:40 3 10:15 [facility] K[place] - 3 3 [facility] INPATIENT INC OFFICE 75087 MCCHADDMIMercedez MASSEYE OUTPATIEN 2 2 JR CHRYSTAL JARRELL T VISIT 15 MINUTES EMERGENCY 98147 NILSA CHAVEZ DEPT 2 2 EMERGENCY VISIT SERVICES HIGH SEVERITY& THREAT [facility] [place] - 2 2 [facility] OUTPATIEN INC T OFFICE 77183 WHANG NIDA WHANG NIDA CONSULTAT 2 2 ION NEW/ESTAB PATIENT 60 MIN OFFICE 57377 BESSON BESSON OUTPATIEN 2 2 MAURO MAURO T VISIT 25 MINUTES HOSPITAL [place] - 2 2 [facility] OUTPATIEN [facility] OFFICE 95274 BESSON BESSON OUTPATIEN 2 2 MAURO MAURO T VISIT 25 MINUTES HOSPITAL [place] - 2 2 [facility]PATIEN [facility] OFFICE 19604 BESSON BESSON OUTPATIEN 2 2 MAURO MAURO T VISIT 15 MINUTES HOSPITAL [place] - 2 2 [facility] OUTPATIEN [facility] OFFICE 36076 BESSON BESSON OUTPATIEN 2 2 MAURO MAURO T VISIT 25 MINUTES OFFICE 24478 MCKEMIE MCKEMIE OUTPATIEN 2 2 JR CHRYSTAL JR CHRYSTAL T VISIT 15 MINUTES HOSPITAL [place] - 2 2 [facility]IEN [facility] - 2 2 [facility] [place] - 1 1 [facility] INPATIENT [facility] EMERGENCY 09231 HEBER BUCK DEPT 1 1 [facility] VISIT HIGH SEVERITY& THREAT [facility] [place] - 1 1 [facility] EMERGENCY 24871 [place] 1 1 [facility] VISIT LOW/MODER SEVERITY EMERGENCY 90327 NILSA SILVERIO DEPT 1 1 EMERGENCY III CHRYSTAL VISIT SERVICES HIGH SEVERITY& THREAT [facility] EMERGENCY 75844 EMERGENCY JEAN-CLAUDE DEPT 1 1 CARE CESAR VISIT PHYS HIGH [facility] SEVERITY& THREAT [facility] ST - 1 1 NATHANIEL INPATIENT [facility] - 1 1 NATHANIEL OUTPATIEN [facility] EMERGENCY 69146 DEPT 1 1 NATHANIEL VISIT FT HIGH BOBBY SEVERITY& THREAT [facility] OFFICE 62285 ST LACEY OUTPATIEN 1 1 NATHANIEL NIDA T VISIT 25 PHYSICIAN MINUTES S EMERGENCY 89764 EMERGENCY JUAN ANTONIO DEPT 1 1 CARE MARCIN VISIT PHYS HIGH [facility]THER[place] SEVERITY& THREAT [facility] OFFICE 67086 MOJGAN HERRMANNPATIEN 0 0 NATHANIEL ALDEN T VISIT 25 PHYSICIAN MINUTES S OFFICE 97545 [facility] OUTPATIEN 0 0 NATHANIEL ALDEN T VISIT 15 PHYSICIAN MINUTES S OFFICE 03315 MOJGAN HERRMANNPATIEN 0 0 NATHANIEL ALDEN T VISIT 25 PHYSICIAN MINUTES S OFFICE 64009 [facility] MIN[facility] OFFICE 00014 PATIENT VENKATESH LACEY 9 9 [facility] T VISIT PHYS 25 MINUTES EMERGENCY 53171 EMERGENCY MELO DEPT 9 9 CARE AGUILAR U VISIT PHYS HIGH [place]& [place] THREAT [facility] [address] INPATIENT [facility] OFFICE 10082 PATIENT VENKATESH LACEY 9 9 [facility] T VISIT PHYS 25 MINUTES EMERGENCY 40361 EMERGENCY SEJAL DEPT 9 9 CARE ERNST VISIT PHYS HIGH [place]& [place] THREAT [facility] EMERGENCY 24327 EMERGENCY JUAN ANTONIO, DEPT 9 9 CARE MIMI D VISIT PHYS HIGH [place] SE[place]& [place] THREAT [facility] [place] - 9 9 [facility] OUTPATIEN [facility] [place] - 9 9 [facility] INPATIENT [facility] EMERGENCY 75991 NILSA BUCK DEPT 9 9 EMERGENCY CASSANDRA S VISIT SERVICES HIGH SEVERITY& ASSOCIATE THREAT S [facility] [place] - 9 9 [facility] INPATIENT [facility] EMERGENCY 24996 NILSA BUCK, DEPT 9 9 EMERGENCY CASSANDRA S VISIT SERVICES HIGH SEVERITY& ASSOCIATE THREAT S [facility] OFFICE 11708 [facility] 9 Jamee SANTOYO JR, J V T VISIT 15 MINUTES OFFICE 32832 [facility] 9 9 Jamee SANTOYO JR, J V T VISIT 15 MINUTES EMERGENCY 09754 [place] 9 9 [facility] VISIT MODERATE SEVERITY HOSPITAL [place] - 9 9 [facility] EM[facility] 36314 CAMILO MERCADO, DEPT 9 9 NATIONAL KRYSTAL VISIT CORPORATI O HIGH ON SEVERITY& THREAT [facility] [place] - 8 8 [facility] EMERGENC[facility] 78981 [place] 8 8 [facility] VISIT HIGH/URGE NT SEVERITY HOSPITAL [place] - 8 8 [facility] INPATIENT [facility] [place] [address] 8 [facility] EMERGENCY 50714 EMERGENCY FLORENCE DEPT 8 8 CARE EDWARD L VISIT PHYS HIGH [place]& [place] TH[place]AT [facility] EMERGENCY 60560 [facility] 8 8 [facility] VISIT HIGH/URGE NT SEVERITY EMERGENCY 58497 EMERGENCY TYRELL DEPT 8 8 CARE CASSANDRA VISIT PHYS HIGH [place] TH[place]AT [facility] EMERGENCY 18769 EMERGENCY MORALES DEPT 8 8 CARE RADAMES L VISIT PHYS HIGH [place]& [place] TH[place]AT [facility] EMERGENCY 81726 [facility] DEPT 8 8 HOSPITAL VISIT [facility] HIGH SEVERITY& THREAT [facility] [place] [address] 8 [facility] OFFICE 70879 PATIENT [facility] 8 8 FIRST CASSANDRA G T NEW 45 PHYS MINUTES HOSPITAL [place] - 8 8 [facility] EMERGENCY 43506 [place] 8 8 [facility] VISIT MODERATE SEVERITY EMERGENCY 52762 [place] ZARATE, 8 8 [facility] T VISIT PROF SERV LOW/MODER SEVERITY EMERGENCY 31556 [place] 8 8 [facility] T V[facility]IT LIMITED/M [facility]OR [facility] K[place] - 8 8 [facility] [place] - 8 8 [facility] INPATIENT [facility] [place] [facility] 8 8 [facility] INPATIENT INC
--- OUTSIDE RECORDS SUMMARY | 2017-03-12 13:19 | External Medical Summary Rpt ---
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 20 20 EN 8 90 09 09 GA 5 #4 NA 28 C 4 SC 00 09 09 00 12 3 WA 14 KA Ac OM 60 -0 -2 0. LG 14 LF ti ET 31 9- 4- 00 RE 27 ve [place] 58 20 20 0 EN 0 ZI 85 09 09 GA NE 8 #4 NA 28 C VC 4 -C OD EI NE SY RU P SC 00 09 09 00 20 15 WA 14 KA Ac ED 59 -0 -2 .0 LG 14 LF ti NI 15 9- 4- 00 RE 26 ve SO 44 20 20 EN 7 NE 30 09 09 GA 5 #4 NA 20 28 C 4 MG TA BL ET NA 68 09 09 00 60 30 WA 14 KA Ac SC 46 -0 -2 .0 LG 14 LF ti OX 20 9- 4- 00 RE 27 ve EN 19 20 20 EN 3 00 09 09 GA 50 5 #4 NA 0 28 C MG 4 TA BL ET 59 09 09 00 8. 16 WA 14 KA Ac 31 -0 -2 50 LG 14 LF ti 00 9- 4- 0 RE 27 ve 57 20 20 EN 2 92 09 09 GA 0 #4 NA 28 C 4 AD 00 09 09 00 60 30 WA 14 KA Ac VA 17 -0 -2 .0 LG 14 LF ti IR 30 9- 4- 00 RE 27 ve 69 20 20 EN 1 25 60 09 09 GA 0- 0 #4 NA 50 28 C 4 DI SK US SC 00 08 08 00 30 30 CL 19 CA Ac AV 09 -2 -[address] ti 37 1- 7- 00 IC 71 IL ve TA 20 20 20 LO TI 29 09 09 PH N 8 AR JR SO MA J DI CY V UM 40 MG TA B SC 00 08 08 00 6. 25 CL [...] 00 30 15 CL 19 CA Ac SC 74 -0 -[address] [...] V DI #3 SK 93 US 8 SC 00 09 07 06 6. 25 RI 76 SC Ac OV 08 -1 -3 70 TE 48 [place] ti EN 51 9- 0- 0 64 FE ve TI 13 20 20 AI R L 20 08 09 D GA HF 1 PH CH A AR AE [...] 31 7- 6- 00 81 IL ve GA 04 20 20 AI LO N 80 09 09 D HC 1 PH JR L AR J 50 M V 0 #3 MG 93 8 TA BL ET SC 00 09 07 05 6. 25 RI 76 SC Ac OV 08 -1 -0 70 TE 48 [place] ti EN 51 9- 2- 0 64 FE ve TI 13 20 20 AI R L 20 08 09 D GA HF 1 PH CH A AR AE 90 M L #3 G MC 93 G 8 IN [place] LE R SC 00 09 06 04 6. 25 RI 76 SC Ac OV 08 -1 -0 70 TE 48 [place] ti EN 51 9- 4- 0 64 FE ve TI 13 20 20 AI R L 20 08 09 D GA HF 1 PH CH A AR AE 90 M L #3 G MC 93 G 8 IN [place] LE R AD 00 07 06 04 60 30 RI 76 SC Ac VA 17 -0 -0 .0 TE 48 [place] ti IR 30 7- 4- 00 63 FE ve 69 20 20 AI R 25 60 08 09 D GA 0- 0 PH CH 50 AR AE M L DI #3 G SK 93 US 8 SC 00 09 05 03 6. 25 RI 76 SC Ac OV 08 -1 -2 70 TE 48 [place] ti EN 51 9- 1- 0 64 FE ve TI 13 20 20 AI R L 20 08 09 D GA HF 1 PH CH A AR AE 90 M L #3 G MC 93 G 8 IN [place] LE R AD 00 07 05 03 60 30 RI 76 SC Ac VA 17 -0 -2 .0 TE 48 [place] ti IR 30 7- 1- 00 63 FE ve 69 20 20 AI R 25 60 08 09 D GA 0- 0 PH CH 50 AR AE [...] 34 9- 1- 00 42 S ve SC [address] ED 31 [...] AI R 25 60 08 09 D GA 0- 0 PH CH 50 AR AE M L DI #3 G SK 93 US 8 SC 00 09 04 02 6. 25 RI 76 SC Ac OV 08 -1 -0 70 TE 48 [place] ti EN 51 9- 9- 0 64 FE ve TI 13 20 20 AI R L 20 08 09 D GA HF 1 PH CH A AR AE [...] AI R 25 60 08 09 D GA 0- 0 PH CH 50 AR AE M L DI #3 G SK 93 US 8 SC 00 09 02 01 6. 25 RI 76 SC Ac OV 08 -1 -1 70 TE 48 [place] ti EN 51 9- 2- 0 64 FE ve TI 13 20 20 AI R L 20 08 09 D GA HF 1 PH CH A AR AE [...] 34 6- 2- 00 76 N ve SC 59 20 20 AI BA ED 31 [...] #3 O 93 TA 8 BL ET SC 00 09 01 00 6. 25 RI 76 SC Ac OV 08 -1 -1 70 TE 48 [place] ti EN 51 9- 5- 0 64 FE ve TI 13 20 20 AI R L 20 08 09 D GA HF 1 PH CH A AR AE 90 M L #3 G MC 93 G 8 IN [place] LE R AD 00 07 01 00 60 30 RI 76 SC Ac VA 17 -0 -1 .0 TE 48 [place] ti IR 30 7- 5- 00 63 FE ve 69 20 20 AI R 25 60 08 09 D GA 0- 0 PH CH 50 AR AE [...] AR R 25 60 08 08 MA GA 0- 0 CY CH 50 AE #5 L DI 43 G SK 7 US SC 00 09 10 01 6. 25 CV 46 SC Ac OV 08 -1 -2 70 S 94 [place] ti EN 51 9- 3- 0 PH 78 FE ve TI 13 20 20 AR R L 20 08 08 MA GA HF 1 CY CH A AE 90 #5 L 43 G MC 7 G IN [place] LE R SC 00 09 09 00 63 18 CV 46 SC Ac ED 59 -1 -2 .0 S 94 [place] ti NI 15 9- 6- 00 PH 76 FE ve SO 44 20 20 AR R NE 20 08 08 MA GA 1 CY CH 10 AE #5 L MG 43 G 7 TA BL ET AV 00 09 09 00 7. 7 CV 46 SC Ac EL 08 -1 -2 00 S 94 [place] ti OX 51 9- 6- 0 PH 75 FE ve 73 20 20 AR R 40 30 08 08 MA GA 0 1 CY CH MG AE #5 L TA 43 G BL 7 ET 49 09 09 00 25 25 CV 46 SC Ac 50 -1 -2 0. S 94 [place] ti 20 9- 6- 00 PH 77 FE ve 68 20 20 0 AR R 52 08 08 MA GA 6 CY CH AE #5 L 43 G 7 SC 00 09 09 00 6. 25 CV 46 SC Ac OV 08 -1 -2 70 S 94 [place] ti EN 51 9- 6- 0 PH 78 FE ve TI 13 20 20 AR R L 20 08 08 MA GA HF 1 CY CH A AE 90 #5 L 43 G MC 7 G IN [place] LE R 17 07 09 03 17 20 CV 46 SC Ac 27 -0 -1 .0 S 25 [place] ti 00 7- 1- 00 PH 86 FE ve 72 20 20 AR R 10 08 08 MA GA 1 CY CH AE #5 L 43 G 7 17 07 08 02 17 20 CV 46 SC Ac 27 -0 -1 .0 S 25 [place] ti 00 7- 4- 00 PH 86 FE ve 72 20 20 AR R 10 08 08 MA GA 1 CY CH AE #5 L 43 G 7 NI 00 07 08 00 30 30 CV 46 SC Ac 07 -3 -1 .0 S 46 [place] ti PA 43 1- 4- 00 PH 70 FE ve N 07 20 20 AR R ER 49 08 08 MA GA 0 CY CH 50 AE 0 #5 L MG 43 G 7 TA BL ET TR 60 07 08 01 30 30 CV 46 SC Ac AZ 50 -0 -1 .0 S 25 [place] ti OD 52 7- 4- 00 PH 88 FE ve ON 65 20 20 AR R E 30 08 08 MA GA 50 1 CY CH AE MG #5 L 43 G TA 7 BL ET AD 00 07 08 01 60 30 CV 46 SC Ac VA 17 -0 -1 .0 S 25 [place] ti IR 30 7- 4- 00 PH 87 FE ve 69 20 20 AR R 25 60 08 08 MA GA 0- 0 CY CH 50 AE #5 L DI 43 G SK 7 US 17 07 08 01 17 20 CV 46 SC Ac 27 -0 -0 .0 S 25 [place] ti 00 7- 1- 00 PH 86 FE ve 72 20 20 AR R 10 08 08 MA GA 1 CY CH AE #5 L 43 G 7 AD 00 07 07 00 60 30 CV 46 SC Ac VA 17 -0 -1 .0 S 25 [place] ti IR 30 7- 7- 00 PH 87 FE ve 69 20 20 AR R 25 60 08 08 MA GA 0- 0 CY CH 50 AE #5 L DI 43 G SK 7 US 17 07 07 00 17 20 CV 46 SC Ac 27 -0 -1 .0 S 25 [place] ti 00 7- 7- 00 PH 86 FE ve 72 20 20 AR R 10 08 08 MA GA 1 CY CH AE #5 L 43 G 7 TR 60 07 07 00 30 30 CV 46 SC Ac AZ 50 -0 -1 .0 S 25 [place] ti OD 52 7- 7- 00 PH 88 FE ve ON 65 20 20 AR R E 30 08 08 MA GA 50 1 CY CH AE MG #5 L 43 G TA 7 BL ET ME 00 07 07 00 21 6 CV 46 GA Ac TH 78 -0 -1 .0 S 20 IN ti YL 15 1 7- 00 PH 27 EY ve SC 02 20 20 AR ED 20 08 08 MA GA NI 7 CY CH SO AE LO [...] 4- 6- 00 IC 80 Av ve SC 00 20 20 ai ED 10 08 [...] la 1 AR bl MA e CY SC 00 01 03 00 30 13 CV [...] O2 SYS RENT; FLWMTR HUMIDFR&M ASK COLLECTIO 39122 [facility] [facility] BLOOD INC INC VENIPUNCT URE BLOOD 70902 [place] [facility] COUNT 7 [facility] COMPLETE INC INC AUTO&AUTO DIFRNTL WBC PRESSURIZ 85856 [place] [facility] ED/NONPRE 7 [facility] SSURIZED INC INC INHALATIO N TREATMENT NONINVASI 80811 [place] [facility] VE 7 [facility] EAR/PULSE INC INC OXIMETRY SINGLE DETER BASIC 35666 [place] YOU METABOLIC 7 [facility] PANEL INC INC CALCIUM TOTAL BASIC 41725 [place] YOU METABOLIC 7 [facility] PANEL INC INC CALCIUM TOTAL PRESSURIZ 77231 [place] YOU ED/NONPRE 7 [facility] SSURIZED INC INC INHALATIO N TREATMENT NONINVASI 89264 [place] [facility] VE 7 [facility] EAR/PULSE INC INC OXIMETRY SINGLE DETER THERAPEUT 45993 [place] [facility] IC 7 [facility] INJECTION INC INC IV PUSH EACH [facility] G0378 [place] [facility] OBSERVATI 7 [facility] ON INC INC SERVICE PER HOUR COLLECTIO 00954 K[place] YOU N VENOUS 7 [facility] BLOOD INC INC VENIPUNCT URE THER 46200 [place] [facility] PROPH/DX 7 [facility] NJX IV INC INC PUSH SINGLE/1S T [facility] G0378 [place] [facility] OBSERVATI 7 [facility] ON INC INC SERVICE PER HOUR NONINVASI 05359 [place] YOU VE 7 [facility] EAR/PULSE INC INC OXIMETRY SINGLE DETER PRESSURIZ 25189 [place] YOU ED/NONPRE 7 [facility] SSURIZED INC INC INHALATIO N TREATMENT PRESSURIZ 23584 [place] YOU ED/NONPRE 7 [facility] SSURIZED INC INC INHALATIO N TREATMENT ECG 76317 [place] ADAMS ROUTINE 7 [facility] W/LEAST P 12 LDS I&R ONLY BLOOD 94546 [place] YOU GASES ANY 7 [facility] INC INC COMBINATI ON PH PCO2 PO2 CO2 HCO3 COMPREHEN 05425 [place] [facility] SIVE 7 [facility] METABOLIC INC INC PANEL BLOOD 01191 [place] [facility] COUNT 7 [facility] COMPLETE INC INC AUTO&[place] [address] [place] YOU TROPONIN 7 [facility] QUANTITAT INC INC CARLOS RADIOLOGI 23374 [facility] YOU C 7 [facility] EXAMINATI INC INC ON CHEST SINGLE VIEW FRONTAL CREATINE 55690 [place] YOU KINASE MB 7 [facility] FRACTION INC INC ONLY ECG 65698 [place] YOU ROUTINE 7 [facility] ECG INC INC W/LEAST 12 LDS TRCG ONLY W/O I&R CREATINE 04593 [place] YOU KINASE 7 [facility] TOTAL INC INC O2 CONC 1 E1390 PATIENT PATIENT DEL [place] 7 AIDS INC AIDS INC 85%/>02 CONC AT PRS FLW RATE PRTBLE E0431 PATIENT PATIENT GASEOUS 7 AIDS INC AIDS INC O2 SYS RENT; FLWMTR HUMIDFR&M ASK PHYS G0179 [facility] [facility] RE-CERT [address] [place] [address]-COVR INTERNAL [facility] RE-CERT [facility] 98[address] [facility] DISCHARGE [address] [place] [address] INTERNAL MANAGEMEN MED T 30 MIN/< SBSQ [address]/DAY INTERNAL 25 MED MINUTES ECG 38922 [place] DIAZ JR ROUTINE [address] [place] [address] W/LEAST P 12 LDS I&R ONLY SBSQ [address] INTERNAL 25 MED MINUTES RADIOLOGI 48527 [place] [facility] C EXAM 7 MEDICAL CHEST 2 IMAGING VIEWS ASS FRONTAL&L ATERAL ECG 57344 [place] ADAMS ROUTINE 7 [facility] W/LEAST P 12 LDS I&R ONLY PRTBLE E0431 PATIENT PATIENT GASEOUS 7 AIDS INC AIDS INC O2 SYS RENT; FLWMTR HUMIDFR&M ASK O2 CONC 1 E1390 PATIENT PATIENT [place] 7 AIDS INC AIDS INC 85%/>02 CONC AT [facility] FLW RATE COLLECTIO [address] [facility] N VENOUS 7 [place] BLOOD VENIPUNCT PHYSICIAN URE S PRTBLE E0431 PATIENT PATIENT GASEOUS 6 AIDS INC AIDS INC O2 SYS RENT; FLWMTR HUMIDFR&M ASK O2 CONC 1 E1390 PATIENT PATIENT [place] 6 AIDS INC AIDS INC 85%/>02 CONC AT [facility] G0378 [place] K[facility] OBSERVATI 6 [facility] ON INC INC SERVICE PER HOUR NONINVASI 97502 [facility] YOU VE 6 [facility] EAR/PULSE INC INC OXIMETRY SINGLE DETER PRESSURIZ 40501 [place] YOU ED/NONPRE 6 [facility] SSURIZED INC INC INHALATIO N TREATMENT PRESSURIZ 36465 [place] YOU ED/NONPRE 6 [facility] SSURIZED INC INC INHALATIO N TREATMENT NONINVASI 09353 [place] YOU VE 6 [facility] EAR/PULSE INC INC OXIMETRY SINGLE DETER [facility] G0378 [place] YOU OBSERVATI 6 [facility] ON INC INC SERVICE PER HOUR [facility] G0378 [place] YOU OBSERVATI 6 [facility] ON INC INC SERVICE PER HOUR BLOOD 47294 [place] YOU COUNT 6 [facility] COMPLETE INC INC AUTO&AUTO DIFRNTL WBC COLLECTIO 20504 [place] Nova VENOUS 6 [facility] BLOOD INC INC VENIPUNCT URE NONINVASI 22396 [place] YOU VE 6 [facility] EAR/PULSE INC INC OXIMETRY SINGLE DETER PRESSURIZ 77966 [place] YOU ED/NONPRE 6 [facility] SSURIZED INC INC INHALATIO N TREATMENT BASIC 86897 [place] YOU METABOLIC 6 [facility] PANEL INC INC CALCIUM TOTAL CREATINE 32508 K[place] YOU KINASE MB 6 [facility] [place] [address] [place] YOU LACTATE 6 [facility] INC INC ECG 35418 [place] YOU ROUTINE 6 [facility] ECG INC INC W/LEAST 12 LDS TRCG ONLY W/O I&R CREATINE 49814 [place] YOU KINASE 6 [facility] [place] [address] [place] YOU INFUSION 6 [facility] THERAPY/P INC INC ROPHYLAXI S /DX 1ST TO 1 HR THERAPEUT 58425 [place] YOU IC 6 [facility] INJECTION INC INC IV PUSH EACH NEW DRUG ECG 43814 [place] DIAZ JR ROUTINE 6 [facility] W/LEAST P 12 LDS I&R ONLY BLOOD 66138 [place] YOU GASES ANY 6 [facility] INC INC COMBINATI ON PH PCO2 PO2 CO2 HCO3 RADIOLOGI 68226 [facility] EXAM 6 MEDICAL CHEST 2 IMAGING VIEWS ASS FRONTAL&L [facility] G0378 [place] YOU OBSERVATI 6 [facility] [place] [address] [place] YOU TROPONIN 6 [facility] QUANTITAT INC INC CARLOS BLOOD 90068 [place] YOU COUNT 6 [facility] COMPLETE INC INC AUTO&AUTO DIFRNTL WBC COMPREHEN 15992 [place] YOU SIVE 6 [facility] METABOLIC INC INC PANEL NATRIURET 21633 [facility] YOU IC 6 [facility] PEPTIDE INC INC THER 83896 [place] YOU PROPH/DX 6 [facility] NJX IV INC INC PUSH SINGLE/1S T SBST/DRUG RADIOLOGI 49287 [facility] 6 MEDICAL EXAMINATI IMAGING ON CHEST ASS SING[place] VIEW FRONTAL COMPREHEN 52446 [place] YOU SIVE 6 [facility] METABOLIC INC INC PANEL CULTURE 39662 [place] YOU BACTERIAL 6 [facility] BLOOD INC INC AEROBIC W/ID ISOLATES BLOOD 45708 [place] YOU COUNT 6 [facility] COMPLETE INC INC AUTO&AUTO DIFRNTL WBC THERAPEUT 25311 [place] YOU IC 6 [facility] INJECTION INC INC IV PUSH EACH NEW DRUG PRESSURIZ 83505 [place] YOU ED/NONPRE 6 [facility] SSURIZED INC [place] [address] [place] YOU LACTATE 6 [facility] INC INC O2 CONC 1 E1390 PATIENT PATIENT [place] 6 AIDS INC AIDS INC 85%/>02 CONC AT PRSC FLW RATE PRTBLE E0431 PATIENT PATIENT GASEOUS 6 AIDS INC AIDS INC O2 SYS RENT; FLWMTR HUMIDFR&M ASK GLUC BLD 57140 [place] YOU GLUC MNTR 6 [facility] DEV INC INC CLEARED FDA SPEC HOME USE BLOOD 75617 [place] YOU COUNT 6 [facility] COMPLETE INC INC AUTO&AUTO DIFRNTL [facility] G0378 [place] YOU OBSERVATI 6 [facility] ON INC INC SERVICE PER HOUR COMPREHEN 78537 [place] YOU SIVE 6 [facility] METABOLIC INC INC PANEL COLLECTIO 42406 [place] YOU N VENOUS 6 [facility] BLOOD INC INC VENIPUNCT URE PRESSURIZ 77639 [place] YOU ED/NONPRE 6 [facility] SSURIZED INC INC INHALATIO N TREATMENT NONINVASI 18574 [place] YOU VE 6 [facility] EAR/PULSE INC INC OXIMETRY SINGLE DETER NONINVASI 48095 [place] YOU VE 6 [facility] EAR/PULSE INC INC OXIMETRY SINGLE DETER PRESSURIZ 20270 [place] YOU ED/NONPRE 6 [facility] SSURIZED INC INC INHALATIO N TREATMENT [facility]OSP[facility] G0378 [place] YOU OBSERVATI 6 [facility] ON INC INC SERVICE PER HOUR GLUC BLD 82983 [facility] YOU GLUC MNTR 6 [facility] DEV INC INC CLEARED FDA SPEC HOME USE RADIOLOGI 30624 [place] YOU C 6 [facility] EXAMINATI INC INC ON CHEST SING[place]IEW FRONTAL CULTURE 69566 [place] YOU BACTERIAL 6 [facility] BLOOD INC INC AEROBIC W/ID ISOLATES COMPREHEN 55527 K[place] YOU SIVE 6 [facility] [place] [address] [place] YOU TROPONIN 6 [facility] QUANTITAT INC INC [facility] G0378 [place] YOU OBSERVATI 6 [facility] ON INC INC SERVICE PER HOUR BLOOD 73416 [place] YOU COUNT 6 [facility] COMPLETE INC INC AUTO&AUTO DIFRNTL WBC NONINVASI 81124 [place] YOU VE 6 [facility] EAR/PULSE [place] [address] [place] YOU INFUSION 6 [facility] THERAPY/P INC INC ROPHYLAXI S /DX 1ST TO 1 HR PRESSURIZ 08575 [place] YOU ED/NONPRE 6 [facility] SSURIZED INC INC INHALATIO N TREATMENT THERAPEUT 17373 [place] YOU IC 6 [facility] INJECTION INC INC IV PUSH EACH NEW DRUG INITIAL 60042 [facility] OBSERVATI 6 PHYSICIAN EUG ON S GROUP CARE/DAY 50 MINUTES GLUC BLD 38847 [place] YOU GLUC MNTR 6 [facility] DEV INC INC CLEARED FDA SPEC HOME USE ECG 78887 [place] DIAZ JR ROUTINE 6 [facility] W/LEAST P 12 LDS I&R ONLY CREATINE 71788 K[place] YOU KINASE MB 6 [facility] [place] [address] [place] YOU LACTATE 6 [facility] INC INC ECG 50502 [place] YOU ROUTINE 6 [facility] ECG INC INC W/LEAST 12 LDS TRCG ONLY W/O I&R CREATINE 94679 [place] YOU KINASE 6 [facility] TOTAL INC INC O2 CONC 1 E1390 PATIENT PATIENT DEL [...] 85%/>02 CONC AT PRSC FLW RATE RADEX 98488 RADIOLOGY [facility] H[facility] 6 BILATERAL ASSOCIATE WITH S OF NOTH PELVIS 2 VIEWS RADEX [address] [facility] [facility] LUMBOSACR ASSOCIATE AL 2/3 S OF NOTH VIEWS RADEX 46643 [facility] SPINE 6 [facility] LUMBOSACR FT FT AL BOBBY ROSALES MINIMUM 4 VIEWS PRTBLE E0431 PATIENT PATIENT GASEOUS 6 [...] SYS RENT; FLWMTR [place] [address] [facility] [address] [place] [address] PATHOLOGY MED CTR GROSS&DIONNA ROSCOPIC EXAM ANES 45241 ANESTHESI BAKER LOLA UPPER GI 6 A GROUP ENDOSCOPY PRACTICE PROXIMAL TO DUODENUM SBSQ [address]/DAY 25 PHYSICIAN MINUTES S INITIAL [address] CARE/DAY 50 PHYSICIAN MINUTES S SBSQ [address] CARE/DAY 25 PHYSICIAN MINUTES S SBSQ [address] CARE/DAY 25 PHYSICIAN MINUTES S SBSQ [address] CARE/DAY 25 [facility]YSIC[facility]UTES S [facility] [address] CARE/DAY 25 PHYSICIAN MINUTES S SBSQ [address] CARE/DAY 25 PHYSICIAN MINUTES S INITIAL [address] CARE/DAY [address] [place] [address] RADIOLOGY [place] [facility]GIOGR[facility] 6 [facility] CHEST ASSOCIATE W/CONTRAS S OF [facility] T/NONCONT RAST RADIOLOGI 34844 [facility] EXAMINATI ASSOCIATE ON CHEST S OF [facility] SINGLE VIEW FRONTAL PRTBLE E0431 PATIENT PATIENT GASEOUS 6 AIDS INC AIDS INC O2 SYS RENT; [facility] HUMIDFR&M ASK O2 CONC 1 E1390 PATIENT PATIENT [place] 6 AIDS INC AIDS INC 85%/>02 CONC AT [facility] [address] MANAGEMEN PHYSICIAN T 30 S MIN/< SBSQ [address] CARE/DAY 25 PHYSICIAN MINUTES S SBSQ [address] CARE/DAY 25 PHYSICIAN MINUTES S MYOCARDIA [address] [facility] GARCIA BERNICE L SPECT 6 [facility] [place] [address] RADIOLOGY [facility] CERVICAL 6 DOT SPINE W/O ASSOCIATE CONTRAST S OF [facility] MATERIAL CV STRS 72182 [facility] TST 6 NATHANIEL ER TORIBIO XERS&/OR RX CONT PHYSICIAN ECG I&R S ONLY CV STRS 82726 [facility] TST 6 NATHANIEL ER TORIBIO XERS&/OR RX CONT PHYSICIAN ECG W/O S I&R INITIAL [address]/DAY 50 PHYSICIAN MINUTES S SBSQ [address] CARE/DAY 25 PHYSICIAN MINUTES S SBSQ [address] CARE/DAY 25 PHYSICIAN MINUTES S INITIAL [address] CARE/DAY 50 PHYSICIAN MINUTES S PRTBLE [...] 85%/>02 CONC AT [facility] [address] [facility] DISCHARGE 5 [facility] MANAGEMEN PHYSICIAN PHYSICIAN T 30 S S MIN/< DUP-SCAN 18793 [facility] XTR VEINS 5 [facility] COMPLETE MED CTR BILATERAL STUDY [...] INC 85%/>02 CONC AT PRS FLW RATE [facility] THORAX 40815 [facility] 5 NATHANIEL NATHANIEL W/CONTRAS FT FT T [...] 85%/>02 CONC AT PRSC FLW RATE PLETHYSMO 01693 [facility] GRAPHY 5 LAT LUNG VOLUMES PHYSICIAN W/WO S AIRWAY RESIST BRNCDILAT 81302 [facility] RSPSE 5 LAT SPMTRY PRE&POST[place] [address] [facility] DIFFUSING 5 LAT [facility] [address] [facility] DISCHARGE MANAGEMEN PHYSICIAN T 30 S MIN/< WALKER E0143 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 FOLDING 5 [facility] ADJUSTABL [facility] SVCS E/FIXED HEIGHT SEAT E0156 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 5 STONE STONE T [facility] CT THORAX 04784 [facility] 5 KAROLYN W/CONTRAS ASSOCIATE T S OF NOTH MATERIAL RADEX 24037 RADIOLOGY [facility] SHOULDER 5 COMPLETE ASSOCIATE MINIMUM 2 [place] [address] [address] [facility] DIFFUSING 4 NATHANIEL IRF [facility] BRNCDILAT 88[address] [facility] 4 NATHANIEL IRF SPMTRY MED CTR PRE&POST- BRNCDILAT ADMN PLETHYSMO 03333 [facility] GRAPHY 4 NATHANIEL IRF LUNG MED CTR VOLUMES W/WO AIRWAY RESIST CT THORAX 45828 RADIOLOGY H[facility]ST BERNICE 4 W/CONTRAS ASSOCIATE T S OF NOTH MATERIAL CT THORAX [address] 4 NATHANIEL NATHANIEL W/CONTRAS FT FT T [facility] 46605 BOB BOB DISCHARGE 4 GAR GAR DAY MANAGEMEN T 30 MIN/< RADIOLOGI 46152 ADRIANA Melvin 4 MAURO EXAMINATI ON CHEST SINGLE VIEW FRONTAL CT THORAX 13429 RANJIT CHURCH 4 MAURO MAURO W/CONTRAS T MATERIAL PRTBLE E0431 [...] INC 85%/>02 [place] [address] THYROID 3 NATHANIEL NATHANIEL STIMULATI MED CTR MED CTR NG CLINICAL STATISTICAL PROGRAMMER ST CLINICAL STATISTICAL PROGRAMMER ST HORMONE TSH BLOOD [address] COUNT 3 [facility] COMPLETE MED CTR MED CTR AUTO&AUTO CLINICAL STATISTICAL PROGRAMMER ST CLINICAL STATISTICAL PROGRAMMER ST DIFRNTL WBC COMPREHEN [address] ST [address] SIVE 3 NATHANIEL NATHANIEL METABOLIC MED CTR MED CTR PANEL CLINICAL STATISTICAL PROGRAMMER ST CLINICAL STATISTICAL PROGRAMMER ST LIPID [address] PANEL 3 NATHANIEL NATHANIEL MED CTR MED CTR CLINICAL STATISTICAL PROGRAMMER ST CLINICAL STATISTICAL PROGRAMMER ST PRTBLE E0431 PATIENT PATIENT GASEOUS 3 AIDS [...] O2 SYS RENT; FLWMTR HUMIDFR&M ASK COMPREHEN [address] METABOLIC MEDICAL MEDICAL PANEL C C BLOOD 76803 [facility] COUNT 3 N JORDYN N JORDYN [...] 85%/>02 CONC AT PRSC FLW RATE RADEX [address] SPINE 3 NATHANIELANDRÉS CANTUTH LUMBOSACR FT FT AL 2/3 BOBBY BOBBY VIEWS PRTBLE E0431 PATIENT PATIENT GASEOUS 3 AIDS INC AIDS INC O2 SYS RENT; FLWMTR HUMIDFR&M ASK PET 68963 [facility]ING [address] ATTENUATI ON SKULL BASE MID-THIGH FLUORODEO A[address] XYGLUCOSE 3 [facility] F-18 FDG MEDICAL MEDICAL DX UP TO CENTER CENTER 45 MCI PORTABLE E0443 PATIENT PATIENT O2 3 AIDS INC AIDS INC CONTENTS GASEOUS 1 MO SUPPLY=1 UNIT O2 CONC 1 E1390 PATIENT PATIENT DEL PORT 3 AIDS INC AIDS INC 85%/>02 CONC AT PRSC FLW RATE PRTBLE E0431 PATIENT PATIENT GASEOUS 3 AIDS INC AIDS INC O2 SYS RENT; FLWMTR HUMIDFR&M ASK BLOOD 75102 [facility] N JORDYN N JORDYN COMPLETE AUTO&AUTO DIFRNTL WBC COMPREHEN [address] METABOLIC MEDICAL MEDICAL PANEL C C LOCM Q9967 ST ST [phone] 3 NATHANIEL NATHANIEL MG/ML FT FT IODINE BOBBY BOBBY CONCENTRA TION PER ML CT THORAX 45818 FUNMI FUNMI 3 CHR CHR W/CONTRAS T MATERIAL PRTBLE E0431 PATIENT PATIENT GASEOUS 3 AIDS INC AIDS INC O2 SYS RENT; FLWMTR HUMIDFR&M ASK O2 CONC 1 E1390 PATIENT PATIENT DEL PORT 3 AIDS INC AIDS INC 85%/>02 CONC AT PRSC FLW RATE BLOOD 31588 [facility] COUNT 3 N JORDYN N JORDYN COMPLETE AUTO&AUTO DIFRNTL WBC RADJ DLVR [address] 3/> [facility] FT FT CUSTOM BOBBY BOBBY BLKING 11-19MEV RADJ DLVR [address] 3/> [facility] CUSTOM BOBBY BOBBY BLKING 11-19MEV PRTBLE E0431 PATIENT PATIENT GASEOUS 3 AIDS INC AIDS INC O2 SYS RENT; FLWMTR HUMIDFR&M ASK O2 CONC 1 E1390 PATIENT PATIENT DEL PORT 3 AIDS INC AIDS INC 85%/>02 CONC AT PRSC FLW RATE RADJ DLVR [address] 3/> 3 NATHANIEL NATHANIEL AREAS FT FT CUSTOM BOBBY BOBBY BLKING 11-19MEV CONTINUIN 18948 ST G MEDICAL 3 NATHANIEL NATHANIEL PHYSICS FT FT CONSLTJ BOBBY ROSALES SC WK RADJ DLVR [address] 3/> 3 NATHANIEL NATHANIEL AREAS FT FT CUSTOM BOBBY BOBBY BLKING 11-19MEV RADJ DLVR [address] 3/> 3 NATHANIEL NATHANIEL AREAS FT FT CUSTOM BOBBY BOBBY BLKING 11-19MEV [place]407 ST IC 3 [facility] RADIOLOGY FT FT PORT BOBBY BOBBY IMAGES(S) RADIATION 03750 SHO BERKOWITZ PRA 3 TREATMENT MANAGEMEN T 5 TREATMENT S RADJ DLVR [address] 3/> 3 NATHANIEL NATHANIEL AREAS FT FT CUSTOM BOBBY BOBBY BLKING 11-19MEV BLOOD 23626 [place] COUNT 3 JOSE MANUELI Silvia Vega COMPLETE AUTO&AUTO DIFRNTL WBC RADJ DLVR [address] 3/> 3 NATHANIEL NATHANIEL AREAS FT FT CUSTOM BOBBY BOBBY BLKING 11-19MEV CONTINUIN [address] G MEDICAL 3 NATHANIEL NATHANIEL PHYSICS FT FT CONSLTJ BOBBY BOBBY SC WK RADJ DLVR [address] 3/> 3 NATHANIEL NATHANIEL AREAS FT FT CUSTOM BOBBY BOBBY BLKING 11-19MEV RADJ DLVR [address] 3/> 3 NATHANIEL NATHANIEL AREAS FT FT CUSTOM BOBBY BOBBY BLKING 11-19MEV RADJ DLVR [address] 3/> 3 NATHANIEL NATHANIEL AREAS FT FT CUSTOM BOBBY BOBBY BLKING 11-19MEV THERAPEUT [address] IC 3 NATHANIEL NATHANIEL RADIOLOGY FT FT PORT BOBBY BOBBY IMAGES(S) RADIATION 66112 SHO BERK[place]ITZ PRA 3 TREATMENT MANAGEMEN T 5 TREATMENT S RADJ DLVR [address] 3/> 3 NATHANIEL NATHANIEL AREAS FT FT CUSTOM BOBBY BOBBY BLKING 11-19MEV CHEMOTX 65975 LEANDRA MOBLEY ADMN IV 3 N JORDYN COBB NFS TQ UP 1 HR SBST/DRUG RADJ DLVR 807[address] 3/> 3 NATHANIEL NATHANIEL AREAS FT FT CUSTOM BOBBY BOBBY BLKING 11-19MEV CONTINUIN [address] G MEDICAL 3 NATHANIEL NATHANIEL PHYSICS FT [place] [address] LEANDRA MOBLEY INFUSION 3 N JORDYN N JORDYN THER PROPH ADDL SEQUENTIA L TO 1 HR COMPREHEN 57659 LEANDRA MOBLEY SIVE 3 N JORDYN N JORDYN METABOLIC PANEL BLOOD 84299 LEANDRA MOBLEY COUNT 3 N JORDYN N JORDYN COMPLETE AUTO&AUTO DIFRNTL WBC INJECTION J9265 LEANDRA MOBLEY 3 N JORDYN N JORDYN PACLITAXE L 30 MG INJECTION J2405 LEANDRA MOBLEY 3 N JORDYN N JORDYN ONDANSETR ON HCL PER 1 MG INJECTION J9045 LEANDRA MOBLEY 3 N JORDYN N JORDYN CARBOPLAT IN 50 MG CHEMOTX 67728 LEANDRA MOBLEY ADMN IV 3 N JORDYN N JORDYN NFS TQ EA SEQL NFS TO 1 HR INJECTION J1200 LEANDRA MOBLEY 3 N JORDYN N JORDYN DIPHENHYD RAMINE HCL UP TO 50 MG INJECTION J2780 LEANDRA MOBLEY 3 N JORDYN N JORDYN RANITIDIN E HYDROCHLO RIDE 25 MG INJECTION J1100 LEANDRA MOBLEY 3 N JORDYN N JORDYN DEXAMETHO SONE SODIUM PHOSPHATE 1 MG RADJ DLVR [address] 3/> 3 NATHANIEL NATHANIEL AREAS FT FT CUSTOM BOBBY BOBBY BLKING 11-19MEV RADJ DLVR [address] 3/> 3 NATHANIEL NATHANIEL AREAS FT FT CUSTOM BOBBY BOBBY BLKING 11-19MEV RADJ DLVR [address] 3/> 3 NATHANIEL NATHANIEL AREAS FT FT CUSTOM BOBBY BOBBY BLKING 11-19MEV THERAPEUT [address] IC 3 NATHANIEL NATHANIEL RADIOLOGY FT FT PORT BOBBY BOBBY IMAGES(S) RADIATION 73416 SHO SHAH BERKOWITZ PRA 3 TREATMENT MANAGEMEN T 5 TREATMENT S RADJ DLVR [address] 3/> 3 NATHANIEL NATHANIEL AREAS FT FT CUSTOM BOBBY BOBBY BLKING 11-19MEV RADJ DLVR [address] 3/> 3 NATHANIEL NATHANIEL AREAS FT FT CUSTOM BOBBY BOBBY BLKING 11-19MEV CONTINUIN 20160 [facility] 3 NATHANIEL CANTUTH PHYSICS FT FT CONSLTJ BOBBY ROSALES SC WK INJECTION J9045 LEANDRA MOBLEY 3 N JORDYN N JORDYN CARBOPLAT IN 50 MG COMPREHEN 66700 LEANDRA MOBLEY SIVE 3 N JORDYN N JORDYN METABOLIC PANEL BLOOD 89460 LEANDRA BARNESMAN COUNT 3 N JORDYN N JORDYN COMPLETE AUTO&AUTO DIFRNTL WBC PLETHYSMO 72623 BROWN-PUR BROWN-PUR GRAPHY 3 YEAR LAT YEAR LAT LUNG VOLUMES W/[place] [address] BROWN-PUR BROWN-PUR DIFFUSING 3 YEAR LAT YEAR LAT CAPACITY BRNCDILAT 37501 BROWN-PUR BROWN-PUR RSPSE 3 YEAR LAT YEAR LAT SPMTRY PRE&POST- BRNCDILAT ADMN RADIATION 63162 SHO SHAH BERKOWITZ PRA 3 TREATMENT MANAGEMEN T 5 [place] [address] LEANDRA MOBLEY INFUSION 3 N JORDYN N JORDYN THER PROPH ADDL SEQUENTIA L TO 1 HR CHEMOTX 03210 LEANDRA MOBLEY ADMN IV 3 N JORDYN N JORDYN NFS TQ UP 1 HR SBST/DRUG BLOOD 24489 LEANDRA RODRIGUES BEL COUNT 3 N JORDYN COMPLETE AUTO&AUTO DIFRNTL WBC COMPREHEN 46262 LEANDRA MOBLEY SIVE 3 N JORDYN N JORDYN METABOLIC PANEL INJECTION J2405 LEANDRA BARNESMAN 3 N JORDYN N JORDYN ONDANSETR ON HCL PER 1 MG INJECTION J9265 LEANDRA BARNESMAN 3 N JORDYN N JORDYN PACLITAXE L 30 MG INJECTION J9045 LEANDRA BARNESMAN 3 N JORDYN N JORDYN CARBOPLAT IN 50 MG CHEMOTX 91620 LEANDRA MOBLEY ADMN IV 3 N JORDYN N JORDYN NFS TQ EA SEQL NFS TO 1 HR INJECTION J1200 LEANDRA BARNESMAN 3 N JORDYN N JORDYN DIPHENHYD RAMINE HCL UP TO 50 MG INJECTION J2780 LEANDRA KERRI 3 N JORDYN VELASQUEZ RANITIDIN E HYDROCHLO RIDE 25 MG INJECTION J1100 LEANDRA MOBLEY 3 N JORDYN N JORDYN DEXAMETHO SONE SODIUM PHOSPHATE 1 MG RADIATION 94256 SHO SHAH 3 TREATMENT MANAGEMEN T 5 TREATMENT S PRTBLE E0431 KAMALJIT MARI GASEOUS 3 HOME HOME O2 SYS MEDICAL MEDICAL RENT; EQUIPME EQUIPME FLWMTR HUMIDFR&M ASK O2 CONC 1 E1390 KAMALJIT MARI DEL PORT 3 HOME HOME 85%/>02 MEDICAL MEDICAL CONC AT EQUIPME EQUIPME PRSC FLW RATE INJECTION J1100 LEANDRA MOBLEY 3 N JORDYN COBB DEXAMETHO SONE SODIUM PHOSPHATE 1 MG INJECTION J2780 LEANDRA MOBLEY 3 N JORDYN COBB RANITIDIN E HYDROCHLO RIDE 25 MG INJECTION J9045 LEANDRA MOBLEY 3 N JORDYN COBB CARBOPLAT IN 50 MG INJECTION J1200 LEANDRA MOBLEY 3 N JORDYN N JORDYN DIPHENHYD RAMINE HCL UP TO 50 MG CHEMOTX 69422 LEANDRA MOBLEY ADMN IV 3 N JORDYN COBB NFS TQ EA SEQL NFS TO 1 HR INJECTION J9265 LEANDRA MOBLEY 3 N JORDYN COBB PACLITAXE L 30 MG INJECTION J2405 LEANDRA MOBLEY 3 N JORDYN COBB ONDANSETR ON HCL PER 1 MG COMPREHEN 40681 LEANDRA MOBLEY SIVE 3 N JORDYN N JORDYN METABOLIC PANEL BLOOD 02006 LEANDRA OLSONKEMIE COUNT 3 N JORDYN JARRELL COMPLETE AUTO&[place] [address] LEANDRA MOBLEY INFUSION 3 N JORDYN COBB THER PROPH ADDL SEQUENTIA L TO 1 HR CHEMOTX 44668 LEANDRA MOBLEY ADMN IV 3 N JORDYN COBB NFS TQ UP 1 HR SBST/DRUG RADIATION 17024 SHO SHAH 3 TREATMENT MANAGEMEN T 5 [place] [address] LEANDRA MOBLEY INFUSION 3 N JORDYN N JORDYN THER PROPH ADDL SEQUENTIA L TO 1 HR CHEMOTX 85267 LEANDRA MOBLEY ADMN IV 3 N JORDYN N JORDYN NFS TQ UP 1 HR / SBST/DRUG BLOOD 80434 LEANDRA MOBLEY COUNT 3 N JORDYN N JORDYN COMPLETE AUTO&AUTO DIFRNTL WBC COMPREHEN 33092 LEANDRA MOBLEY SIVE 3 N JORDYN N JORDYN METABOLIC PANEL INJECTION J9265 LEANDRA MOBLEY 3 N JORDYN N JORDYN PACLITAXE L 30 MG INJECTION J9045 LEANDRA MOBLEY 3 N JORDYN N JORDYN CARBOPLAT IN 50 MG CHEMOTX 51880 LEANDRA MOBLEY ADMN IV 3 N JORDYN N JORDYN NFS TQ EA SEQL NFS TO 1 HR INJECTION J1200 LEANDRA MOBLEY 3 N JORDYN N JORDYN DIPHENHYD RAMINE HCL UP TO 50 MG INJECTION J2780 LEANDRA MOBLEY 3 N JORDYN N JORDYN RANITIDIN E HYDROCHLO RIDE 25 MG INJECTION J1100 LEANDRA MOBLEY 3 N JORDYN N JORDYN DEXAMETHO SONE SODIUM PHOSPHATE 1 MG ADMN SET A7003 YOUR YOUR SM VOL 3 [facility] PNE[facility] NEBULIZR DISPBL 3-D 15155 [facility] RADIOTHER 3 BRA BRA APY PLAN DOSE-VOLU ME HISTOGRAM S BASIC 60163 [facility] [place] [address] [facility] DEVICES 3 BRA BRA DESIGN & CONSTRUCT ION COMPLEX SPMTRY 58718 SRINIVASAN BAR SRINIVASAN BAR W/VC 3 EXPIRATOR Y JONATHAN W/WO MXML VOL VNTJ THERAPEUT 09198 SHO SHAH IC 3 RADIOLOGY TX PLANNING COMPLEX THER RAD 51973 SHO SHAH SIMULAJ-A [address] [place] [address] [facility]ERN[facility] HURST BERNICE GUIDANCE 3 RADIATION THERAP[place] [address] [facility] 3 [place] PET SKULL [facility] BASE TO MID-THIGH FLUORODEO A9552 [facility] XYGLUCOSE 3 [place] PET [place] PET F-18 FDG [facility] DX UP TO 45 MCI O2 CONC 1 E1390 KAMALJIT MARTINEZ [facility] 3 HOME HOME 85%/>02 MEDICAL MEDICAL CONC AT EQUIPME EQUIPPA PRS FLW RATE PRTBLE E0431 KAMALJIT MARI GASEOUS 3 HOME HOME O2 SYS MEDICAL MEDICAL RENT; EQUIPME EQUIPME FLWMTR HUMIDFR&M ASK BLOOD 50146 LEANDRA LEANDRA COUNT 3 N JORDYN N JORDYN COMPLETE AUTO&AUTO DIFRNTL WBC BLOOD 14623 KENYATTA YOU COUNT 3 [facility] COMPLETE INC INC AUTO&AUTO DIFRNTL WBC COMPREHEN 10740 KENYATTA YOU SIVE 3 [facility] METABOLIC INC INC PANEL ADMN SET A7003 YOUR YOUR SM VOL 3 PHARMACY PHARMACY [facility] PNEUMAT NEBULIZR DISPBL O2 CONC 1 E1390 KAMALJIT MARTINEZ [facility] 3 HOME HOME 85%/>02 MEDICAL MEDICAL CONC AT EQUIPME EQUIPME PRS FLW RATE PRTBLE E0431 KAMALJIT MARI GASEOUS 3 HOME HOME O2 SYS MEDICAL MEDICAL RENT; EQUIPPA EQUIPPA FLWMTR HUMIDFR&M ASK CONSLTJ&R 45858 ERIKA JAMES EPRT 3 LOLA DAVILA SLIDES PREPARED ELSEWHERE BASIC 52275 KENYATTA YOU METABOLIC 3 [facility] PANEL INC INC CALCIUM TOTAL BLOOD 00820 K[place]TA YOU COUNT 3 [facility] COMPLETE INC INC AUTO&AUTO DIFRNTL WBC H[facility] G0378 K[place] YOU OBSERVATI 3 [facility] ON INC INC SERVICE PER HOUR PRESSURIZ 09860 KENYATTA YOU ED/NONPRE 3 [facility] SSURIZED INC INC INHALATIO N TREATMENT NONINVASI 32544 K[place]TA YOU VE 3 [facility] EAR/PULSE INC INC OXIMETRY SINGLE DETER OBSERVATI 70710 BARBRA BELLE ON CARE 3 JR CHRYSTAL JARRELL DISCHARGE MANAGEMEN T RADIOLOGI 01046 RUSS RUSS C EXAM 3 HREA RHEA CHEST 2 VIEWS FRONTAL&L ATERAL RADIOLOGI 87446 RUSS RUSS C EXAM 3 RHEA RHEA CHEST 2 VIEWS FRONTAL&L ATERAL CT THORAX 92053 KENYATTA YOU W/O 3 [facility] CONTRAST INC INC MATERIAL NONINVASI 53552 KENYATTA YOU VE 3 [facility] EAR/PULSE INC INC OXIMETRY SINGLE DETER PRESSURIZ 42501 KENYATTA YOU ED/NONPRE 3 [facility]OS[facility] SSURIZED [place] [address] KENYATTA YOU GUIDANCE 3 [facility] NEEDLE INC INC PLACEMENT INITIAL 64930 BRYAN ADAMS OBSERVATI 3 [place] ON CARE/DAY 30 MINUTES ANESTHESI 06999 [facility] A CLOSED 3 ANESTH CHEST OF THE NEEDLE BLUE BIOPSY PLEURA CYTP FINE 56811 PICKLESIM PICKLESIM NDL 3 ER JR SANA ER JR SANA ASPIRATE IMMT CYTOHIST STD DX 1ST CYTP EVAL 43278 PICKLESIM PICKLESIM FINE 3 ER JR SANA ER JR SANA NEEDLE ASPIRATE INTERP & [place] [address] PICKLESIM PICKLESIM SURG 3 ER JR SANA ER JR SANA PATHOLOGY GROSS&DIONNA ROSCOPIC EXAM FINE 43321 K[place]TA YOU NEEDLE 3 [facility] ASPIRATIO INC INC N WITH IMAGING GUIDANCE PROTHROMB 70370 KENYATTA YOU IN TIME 3 [facility] INC INC THROMBOPL 74255 KENY[place]TA YOU ASTIN 3 [facility] TIME INC INC PARTIAL PLASMA/WH OLE BLOOD BLOOD 33816 KENYATTA YOU COUNT 3 [facility] COMPLETE INC INC AUTO&AUTO DIFRNTL [facility]GE [facility] JR CHRYSTAL SANTOYO CHRYSTAL DAY MANAGEMEN T 30 MIN/< SBSQ 39134 [facility] 3 JR CHRYSTAL SANTOYO CHRYSTAL CARE/DAY 25 MINUTES RADIOLOGI 92005 RUSS RUSS C EXAM 3 RHEA RHEA CHEST 2 VIEWS FRONTAL&L ATERAL ECG 98155 EMILY DIAZ JR ROUTINE 3 DWI DWI ECG W/LEAST 12 LDS I&R ONLY NONINVASI 45859 [facility] 3 [place] EAR/PULSE OXIMETRY SINGLE DETER INITIAL 85849 [facility] 3 [place] CARE/[place] [address] [place] [address] RUSS RUSS ANGIOGRAP 3 RHEA RHEA HY CHEST W/CONTRAS T/NONCONT RAST ADMN SET A7003 YOUR YOUR SM VOL 3 PHARMACY PHARMACY [facility] PNEUMAT NEBULIZR DISPBL O2 CONC 1 E1390 KAMALJIT KAMALJIT DEL PORT 3 HOME HOME 85%/>02 MEDICAL MEDICAL CONC AT EQUIPME EQUIPME PRSC FLW RATE PRTBLE E0431 KAMALJIT KAMALJIT GASEOUS 3 HOME HOME O2 SYS MEDICAL MEDICAL RENT; EQUIPME EQUIPME FLWMTR HUMIDFR&M ASK PRTBLE E0431 KAMALJIT KAMALJIT GASEOUS 2 HOME HOME O2 SYS MEDICAL MEDICAL RENT; EQUIPME EQUIPME FLWMTR HUMIDFR&M ASK O2 CONC 1 E1390 KAMALJIT KAMALJIT DEL PORT 2 HOME HOME 85%/>02 MEDICAL MEDICAL CONC AT EQUIPME EQUIPME PRSC FLW RATE ADMN SET A7003 YOUR YOUR SM VOL 2 PHARMACY PHARMACY [facility] PNEUMAT NEBULIZR DISPBL RADIOLOGI 00943 [place] RUSS C 2 MEDICAL RHEA EXAMINATI IMAGING ON CHEST ASS SINGLE VIEW FRONTAL AMB A0427 [facility] SERVICE 2 AMBULANCE AMBULANCE ALS SERVICE SERVICE EMERGENCY TRANSPORT LEVEL 1 GROUND A0425 [facility] PER SERVICE SERVICE STATUTE MILE BRNCDILAT 44329 BARBRA BELLE RSPSE 2 JR CHRYSTAL JR CHRYSTAL SPMTRY PRE&POST- BRNCDILAT ADMN BLOOD 11097 KENY[place]TA YOU GASES ANY 2 [facility] INC INC COMBINATI ON PH PCO2 PO2 CO2 HCO3 GAS 57001 BARBRA BELLE DILUT/WAS 2 JR CHRYSTAL JR CHRYSTAL HOUT LUNG VOL W/WO DISTRIB VENT&V PRTBLE E0431 KAMALJIT MARI GASEOUS 2 HOME HOME O2 SYS MEDICAL MEDICAL RENT; EQUIPME EQUIPME FLWMTR HUMIDFR&M ASK O2 CONC 1 E1390 KAMALJIT KAMALJIT DEL PORT 2 HOME HOME 85%/>02 MEDICAL MEDICAL CONC AT EQUIPME EQUIPME PRS FLW RATE CT THORAX 68270 RUSS RUSS 2 RHEA RHEA W/CONTRAS T MATERIAL LOCM Q9967 KENYATTA YOU [phone] [facility] MG/ML INC INC IODINE CONCENTRA TION PER ML 3D 04497 KENY[place]TA YOU RENDERING 2 [facility] INC INC W/INTERP& POSTPROC DIFF WORK STATION LIPID 60690 K[place]TA YOU PANEL 2 [facility] INC INC RADIOLOGI 71116 KENYATTA YOU C EXAM 2 [facility] CHEST 2 INC INC VIEWS FRONTAL&L ATERAL BLOOD 86135 KENYATTA YOU COUNT 2 [facility] COMPLETE INC INC AUTO&AUTO DIFRNTL WBC COMPREHEN 64526 KENYATTA YOU SIVE 2 [facility] [place] [address] KENYATTA YOU THYROID 2 [facility] STIMULATI INC INC NG HORMONE TSH CYANOCOBA 85453 KENYATTA YOU RAMBO 2 [facility] VITAMIN INC INC B-12 25 16680 K[place]TA YOU HYDROXY 2 [facility] INCLUDES INC INC FRACTIONS IF PERFORMED O2 CONC 1 E1390 KAMALJITRACHEL MARI DEL PORT 2 HOME HOME 85%/>02 MEDICAL MEDICAL CONC AT EQUIPME EQUIPME [facility] FLW RATE PRTBLE E0431 KAMALJIT MARI GASEOUS 2 HOME HOME O2 SYS MEDICAL MEDICAL RENT; EQUIPME EQUIPME FLWMTR HUMIDFR&M ASK ADMN SET A7003 YOUR YOUR SM VOL 2 PHARMACY PHARMACY NON[facility]TR [facility] PNEUMAT NEBULIZR DISPBL O2 CONC 1 [...] YOUR YOUR SM VOL 2 PHARMACY PHARMACY [facility] PNEUMAT NEBULIZR DISPBL 25 07232 KENY[place]TA YOU HYDROXY 2 [facility] INCLUDES INC INC FRACTIONS IF PERFORMED CYANOCOBA 73172 KENY[place]TA YOU RAMBO 2 [facility] VITAMIN INC INC B-12 [place] [address] KENYATTA YOU THYROID 2 [facility] STIMULATI INC INC NG HORMONE TSH COMPREHEN 58279 KENY[place]TA YOU SIVE 2 [facility] METABOLIC INC INC PANEL BLOOD 66214 KENYATTA YOU COUNT 2 [facility] COMPLETE INC INC AUTO&AUTO DIFRNTL WBC LIPID 28098 K[place]TA YOU PANEL 2 [facility] INC INC PRTBLE E0431 KAMALJIT MARI GASEOUS 2 HOME [...] NEBULIZR DISPBL O2 CONC 1 E1390 KAMALJIT MARI DEL [place] 2 HOME HOME 85%/>02 MEDICAL MEDICAL CONC AT EQUIPME EQUIPME PRSC FLW RATE PRTBLE E0431 KAMALJIT MARI GASEOUS 2 HOME HOME O2 SYS MEDICAL MEDICAL RENT; EQUIPME EQUIPME FLWMTR HUMIDFR&M ASK ADMN SET A7003 YOUR YOUR SM VOL 2 PHARMACY PHARMACY [facility] PNEUMAT NEBULIZR DISPBL O2 CONC 1 E1390 KAMALJIT MARI DEL [place] 2 HOME HOME 85%/>02 MEDICAL MEDICAL CONC AT EQUIPME EQUIPME PRSC FLW RATE PRTBLE E0431 KAMALJIT MARI GASEOUS 2 HOME HOME O2 SYS MEDICAL MEDICAL RENT; EQUIPME EQUIPME FLWMTR HUMIDFR&M ASK ADMN SET A7003 YOUR YOUR SM VOL 2 PHARMACY PHARMACY NONFILTR [facility] PNEUMAT NEBULIZR DISP HOSPITAL 06717 [facility] 2 [facility] DAY INTERNAL MANAGEMEN MED T 30 MIN/< SBSQ [address] CARE/DAY INTERNAL 25 MED MINUTES MYOCARDIA 08456 [facility] 2 [facility] MULTIPLE CARDIOLOG STUDIES Y CLINIC SBSQ [address] CARE/DAY INTERNAL 25 MED MINUTES SBSQ [address] CARE/DAY INTERNAL 25 MED MINUTES CRITICAL 99017 NILSA [facility] 2 EMERGENCY ILL/INJUR SERVICES ED PATIENT INIT 30-74 MIN GROUND A0425 [facility] 2 AMBULANCE AMBULANCE PER SERVICE SERVICE STATUTE MILE INITIAL [address] CARE/DAY INTERNAL 50 MED MINUTES RADIOLOGI 16422 [place] RUSS C 2 MEDICAL RHEA EXAMINATI IMAGING ON CHEST ASS SINGLE VIEW FRONTAL AMB A0427 [facility] SERVICE 2 AMBULANCE AMBULANCE ALS SERVICE SERVICE EMERGENCY TRANSPORT LEVEL 1 PRTBLE E0431 KAMALJIT MARI GASEOUS 2 HOME HOME O2 SYS MEDICAL MEDICAL RENT; EQUIPME EQUIPME FLWMTR HUMIDFR&M ASK O2 CONC 1 E1390 KAMALJIT MARI [place] 2 HOME HOME 85%/>02 MEDICAL MEDICAL CONC AT EQUIPME EQUIPME [facility] FLW RATE ADMN SET A7003 YOUR YOUR SM VOL 2 PHARMACY PHARMACY [facility] PNEUMAT NEBULIZR DISPBL NEBULIZER E0570 KAMALJIT MARI WITH 2 HOME HOME COMPRESSO MEDICAL MEDICAL R EQUIPME EQUIPME BASIC 28693 KENYATTA YOU METABOLIC 2 [facility] PANEL INC INC CALCIUM TOTAL BLOOD 85122 KENYATTA YOU COUNT 2 [facility] COMPLETE INC INC AUTO&AUTO DIFRNTL WBC PRTBLE E0431 KAMALJIT MARI GASEOUS 2 HOME HOME O2 SYS MEDICAL MEDICAL RENT; EQUIPME EQUIPME FLWMTR HUMIDFR&M ASK O2 CONC 1 E1390 KAMALJIT MARI [place] 2 HOME HOME 85%/>02 MEDICAL MEDICAL CONC AT EQUIPME EQUIPME [facility] FLW [facility] [address] [facility] [address] [facility] DAY MANAGEMEN T 30 MIN/< SBSQ [address] [place] CARE/DAY INTERNAL 25 MED MINUTES SBSQ [address] [place] CARE/DAY INTERNAL 25 MED MINUTES SBSQ 45310 [facility] [address] [facility] CARE/DAY 25 MINUTES SBSQ 20379 [facility] [address] [facility] CARE/DAY 35 MINUTES ECG 70984 [facility] 2 DIONNA DIONNA ECG W/LEAST 12 LDS I&R ONLY CRITICAL 76621 [facility] 2 DIONNA DIONNA ILL/INJUR ED PATIENT INIT 30-74 MIN GROUND A0425 [facility] PER SERVICE SERVICE STATUTE MILE AMB A0427 [facility] SERVICE 2 AMBULANCE AMBULANCE ALS SERVICE SERVICE EMERGENCY TRANSPORT LEVEL 1 INITIAL 77044 [facility] 2 JR CHRYSTAL JR CHRYSTAL CARE/DAY 70 MINUTES INSERTION 9604 KENYATTA YOU OF 2 [facility] ENDOTRACH INC INC EAL TUBE CONT 9671 KENY[place]TA YOU INVASIVE 2 [facility] MECH VENT INC INC < 96 CONSECUTI VE HOURS INTUBATIO 53519 [facility] N 2 DIONNA DIONNA ENDOTRACH EAL EMERGENCY PROCEDURE O2 CONC 1 E1390 KAMALJIT KAMALJIT DEL PORT 1 HOME HOME 85%/>02 MEDICAL MEDICAL CONC AT EQUIPME EQUIPME PRS FLW RATE PRTBLE E0431 KAMALJIT KAMALJIT GASEOUS 1 HOME HOME O2 SYS MEDICAL MEDICAL RENT; EQUIPME EQUIPME FLWMTR HUMIDFR&M ASK RADIOLOGI 80910 RUSS RUSS C 1 RHEA RHEA EXAMINATI ON CHEST SINGLE VIEW FRONTAL ECG 58313 [facility] ROUTINE 1 DIONNA DIONNA ECG W/LEAST 12 LDS I&R ONLY PRTBLE E0431 KAMALJIT KAMALJIT GASEOUS 1 HOME HOME O2 SYS MEDICAL MEDICAL RENT; EQUIPME EQUIPME FLWMTR HUMIDFR&M ASK O2 CONC 1 E1390 KAMALJIT KAMALJIT DEL PORT 1 HOME HOME 85%/>02 MEDICAL MEDICAL CONC AT EQUIPME EQUIPME PRSC FLW RATE BASIC 46051 KENYATTA YOU METABOLIC 1 [facility] PANEL INC INC CALCIUM TOTAL ECG 79062 KENYATTA YOU ROUTINE 1 [facility] ECG INC INC W/LEAST 12 LDS TRCG ONLY W/O I&R BLOOD 48515 [facility] COUNT 1 [facility] COMPLETE INC INC AUTO&AUTO DIFRNTL WBC CULTURE 30694 [facility] BACTERIAL 1 [facility] BLOOD INC INC AEROBIC W/ID ISOLATES ECG 57660 [facility] [place] ROUTINE 1 [facility] ECG HOSPITAL W/LEAST P 12 LDS I&R ONLY RADIOLOGI 91264 [facility] EXAM 1 MEDICAL RHEA CHEST 2 IMAGING VIEWS ASS FRONTAL&L ATERAL PRESSURIZ 79361 [facility] YOU ED/NONPRE 1 [facility] MEM [...] SERVICE SERVICE LIFE SUSTAININ G SITUATION RADIOLOGI 65653 [facility] 1 MEDICAL RHEA EXAMINATI IMAGING ON CHEST ASS SINGLE VIEW FRONTAL AMB A0427 [facility] SERVICE 1 AMBULANCE AMBULANCE ALS SERVICE SERVICE EMERGENCY TRANSPORT LEVEL 1 GROUND A0425 [facility] MILEAGE 1 AMBULANCE AMBULANCE PER SERVICE SERVICE STATUTE MILE ALS A0398 [facility] ROUTINE 1 AMBULANCE AMBULANCE DISPOSABL SERVICE SERVICE E SUPPLIES ECG 13971 NILSA SILVERIO ROUTINE 1 EMERGENCY [facility] ECG SERVICES W/LEAST 12 LDS I&R ONLY [...] MEDICAL MEDICAL RENT; EQUIPME EQUIPME FLWMTR HUMIDFR&M [facility] [address] [facility] CHR DISCHARGE 1 MED CTR MANAGEMEN T > 30 MIN SBSQ 21996 [facility] 1 NATHANIEL CARE/DAY MED CTR 25 MINUTES SBSQ 72015 [facility] 1 ANTHANIEL CARE/DAY MED CTR [address] [facility] R[facility]INE 1 NATHANIEL GAR ECG W/LEAST PHYSICIAN 12 LDS S I&R ONLY ECG 664[address] [facility] 1 NATHANIEL GAR ECG W/LEAST PHYSICIAN 12 LDS S I&R ONLY ECHO 52898 [facility] T[facility] R-T 1 NATHANIEL TORIBIO 2D W/WOM-MOD PHYSICIAN E COMPL S SPEC&COLR D INITIAL 73919 [facility] 1 NATHANIEL CARE/DAY MED CTR 70 MINUTES AMB A0427 FIRE DEPT FIRE DEPT SERVICE 1 OF OF [facility] EMERGENCY DAYTO DAYTO TRANSPORT LEVEL 1 ECG 45994 [facility]AGNOSTI [facility]OB ROUTINE 1 C GAR ECG CARDIOLOG W/LEAST ISTS INC 12 LDS I&R ONLY RADIOLOGI 94368 [facility] VIANEY C EXAM 1 TUS CHEST 2 ASSOCIATE VIEWS S PSC FRONTAL&L ATERAL ALS A0398 FIRE DEPT FIRE DEPT ROUTINE 1 OF OF DISPOSABL NAFISA SKELTON E DAYTO DAYTO SUPPLIES GROUND A0425 FIRE DEPT FIRE DEPT MILEAGE 1 OF OF PER NAFISA SKELTON STATUTE DAYTO DAYTO MILE [facility] A0422 FIRE DEPT FIRE DEPT OXYGEN&O2 1 [facility]PLIES [facility] LIFE DAYTO DAYTO SUSTAININ G SITUATION O2 CONC 1 E1390 KAMALJIT MARI DEL PORT 1 HOME MED HOME MED 85%/>02 EQUIP. L EQUIP. L CONC AT [facility] FLW RATE PRTBLE E0431 KAMALJIT MARI GASEOUS 1 HOME MED HOME MED O2 SYS EQUIP. L EQUIP. L RENT; MOWMIR HUMIDFR&M ASK PRTBLE E0431 KAMALJIT MARI GASEOUS 1 HOME MED HOME MED O2 SYS EQUIP. L EQUIP. L RENT; MOWMTR HUMIDFR&M ASK O2 CONC 1 E1390 KAMALJIT [...] L EQUIP. L RENT; FLWMTR HUMIDFR&M ASK BLOOD [address] COUNT 1 NATHANIEL ARMSTRONG COMPLETE FT FT AUTO&AUTO [place] [address] TROPONIN 1 NATHANIEL ARMSTRONG QUANTITAT FT FT CARLOS BOBBY ROSALES AMB A0427 FIRE DEPT FIRE DEPT SERVICE 1 OF OF ALS NAFISA SKELTON EMERGENCY DAYTO DAYTO TRANSPORT LEVEL [address] IC 1 NATHANIEL ARMSTRONG PEPTIDE FT FT BOBBY BOBBY THER [address] PROPH/DX 1 NATHANIEL ARMSTRONG NJX IV FT FT PUSH BOBBY ROSALES SINGLE/1S T SBST/DRUG RADIOLOGI [address] C 1 NATHANIEL ARMSTRONG EXAMINATI FT FT ON CHEST BOBBY ROSALES SINGLE VIEW FRONTAL GROUND A0425 FIRE DEPT FIRE DEPT MILEAGE 1 OF OF PER NAFISA MAYAE STATUTE DAYTO DAYTO MILE ALS A0398 FIRE DEPT FIRE DEPT ROUTINE 1 OF OF DISPOSABL [place] TARIQUUE E DAYTO DAYTO SUPPLIES THER [address] PROPH/DX 1 NATHANIELANDRÉS ARMSTRONG NJX EA FT FT SEQL IV BOBBY ROSALES PUSH SBST/DRUG FAC THERAPEUT [address] IC 1 NATHANIEL NATHANIEL INJECTION FT FT IV PUSH BOBBY ROSALES EACH NEW DRUG ECG 96176 DIAGNOSMYRTLE WHITING ROUTINE 1 C PEG ECG CARDIOLOG W/LEAST ISTS INC 12 LDS I&R ONLY AMB A0422 FIRE DEPT FIRE DEPT OXYGEN&O2 1 OF OF SUPPLIES NAFISA SKELTON LIFE DAYTO DAYTO SUSTAININ G SITUATION ECG [address] ROUTINE 1 NATHANIEL CANTUTH ECG FT FT W/LEAST BOBBY BOBBY 12 [facility] TRCG ONLY W/O I&R BASIC [address] METABOLIC 1 NATHANIEL CANTUTH PANEL FT FT CALCIUM BOBBY ROSALES TOTAL O2 CONC 1 E1390 [facility] HOME MED HOME MED 85%/>02 EQUIP. L EQUIP. L CONC AT [facility] FLW RATE PRTBLE E0431 KAMALJIT KAMALJIT GASEOUS 1 HOME MED HOME MED O2 SYS EQUIP. L EQUIP. L RENT; [facility] HUMIDFR&M ASK PRTBLE E0431 KAMALJIT KAMALJIT GASEOUS 1 HOME MED HOME MED O2 SYS EQUIP. L EQUIP. L RENT; [facility] HUMIDFR&M ASK O2 CONC 1 E1390 [facility] 1 HOME MED HOME MED 85%/>02 EQUIP. L EQUIP. L CONC AT [facility] FLW RATE O2 CONC 1 E1390 [place] [address] HOME MED HOME MED 85%/>02 EQUIP. L EQUIP. L CONC AT [facility] FLW RATE PRTBLE E0431 KAMALJIT KAMALJIT GASEOUS 1 HOME MED HOME MED O2 SYS EQUIP. L EQUIP. L RENT; [facility] HUMIDFR&M [facility] [address] [facility] DISCHARGE 1 [facility] DAY MED CTR MANAGEMEN T 30 MIN/< SBSQ 97988 [facility] 1 [facility] CARE/DAY MED CTR 25 MINUTES ECG 86048 DIAGNOSTI MCDANNOLD ROUTINE 1 C PEG ECG CARDIOLOG W/LEAST ISTS INC 12 LDS I&R ONLY ECG 69112 DIAGNOSTI MCDANNOLD ROUTINE 1 C PEG ECG CARDIOLOG W/LEAST ISTS INC 12 LDS I&R ONLY ALS A0398 FIRE DEPT FIRE DEPT ROUTINE 1 OF OF DISPOSABL FEROZEVUUE BELLEVUUE E DAYTO DAYTO SUPPLIES GROUND A0425 FIRE DEPT FIRE DEPT MILEAGE 1 OF [place] [address] RADIOLOGY DEENAER ANGIOGRAP 1 MICAH HY CHEST ASSOCIATE W/CONTRAS S PSC T/NONCONT RAST RADIOLOGI 91795 RADIOLOGY SCHMITTER C 1 MICAH EXAMINATI ASSOCIATE ON CHEST S PSC SINGLE VIEW FRONTAL AMB A0427 FIRE DEPT FIRE DEPT SERVICE 1 OF OF JAIDEN SKELTON EMERGENCY DAYTO DAYTO TRANSPORT LEVEL 1 [facility] E0431 KAMALJIT MARI GASEOUS 0 HOME MED HOME MED O2 SYS EQUIP. L EQUIP. L RENT; [facility] HUMIDFR&M ASK O2 CONC 1 E1390 [place] [place] 0 HOME MED HOME MED 85%/>02 EQUIP. L EQUIP. L CONC AT [facility] [address] [facility] DISCHARGE 0 NATHANIEL RAJ DAY MED CTR MANAGEMEN T > 30 MIN SBS 45897 [facility] CARE/DAY MED CTR [address] [facility] [address] [facility] CARE/DAY MED CTR 25 MINUTES CRITICAL 47764 EMERGENCY SEJAL CARE 0 CARE LISA ILL/INJUR PHYS ED [facility]THER[facility] PATIENT INIT 30-74 MIN ECG 39393 DEJON RO NIV ROUTINE 0 C ECG CARDIOLOG W/LEAST ISTS INC 12 LDS I&R ONLY GROUND A0425 FIRE DEPT FIRE DEPT MILEAGE 0 OF OF LAL[place] STATUTE DAYTO DAYTO MILE ALS A0398 FIRE DEPT FIRE DEPT ROUTINE 0 OF OF DISPOSSOFYA SKELTON E DAYTO DAYTO SUPPLIES INITIAL 59105 [facility] 0 NATHANIEL RAJ CARE/DAY MED CTR 50 MINUTES AMB A0422 FIRE DEPT FIRE DEPT OXYGEN&O2 0 OF OF SUPPLIES NAFISA SKELTON LIFE DAYTO DAYTO SUSTAININ G SITUATION AMB A0427 FIRE DEPT FIRE DEPT SERVICE 0 OF OF ALS NAFISA SKELTON EMERGENCY DAYTO DAYTO TRANSPORT LEVEL 1 RADIOLOGI 78972 RADIOLOGY NEILS LEO C 0 EXAMINATI ASSOCIATE ON CHEST S PSC SINGLE VIEW FRONTAL PRTBLE E0431 KAMALJIT KAMALJIT GASEOUS 0 HOME MED HOME MED O2 SYS EQUIP. L EQUIP. L RENT; [facility] HUMIDFR&M ASK O2 CONC 1 E1390 [place] [place] 0 HOME MED HOME MED 85%/>02 EQUIP. L EQUIP. L CONC AT [facility] [address] [facility] DISCHARGE 0 NATHANIEL DAY MED CTR MANAGEMEN T > 30 MIN SBSQ 13536 [facility] 0 NATHANIEL CARE/DAY MED CTR 25 MINUTES RADIOLOGI 41289 RADIOLOGY VIANEY C EXAM 0 TUS CHEST 2 ASSOCIATE VIEWS S PSC FRONTAL&[place] [address] RADIOLOGY RANJIT LIMITED/L 0 MAURO OCALIZED ASSOCIATE FOLLOW UP S PSC STUDY INITIAL 05867 [facility] 0 NATHANIEL CARE/DAY MED CTR 70 MINUTES RADIOLOGI 60254 RADIOLOGY SURESH BYR C 0 EXAMINATI ASSOCIATE [...] NAFISA SKELTON STATUTE DAYTO DAYTO MILE CRITICAL 11874 EMERGENCY VEST QUIANA CARE 0 CARE ILL/INJUR PHYS ED NORTHERN PATIENT INIT 30-74 MIN ECG 25522 PRIMOMYRTLE RO NIV ROUTINE 0 C ECG CARDIOLOG W/LEAST ISTS INC 12 LDS I&R ONLY PRTBLE E0431 KAMALJIT KAMALJIT GASEOUS 0 HOME MED HOME MED O2 SYS EQUIP. L EQUIP. L RENT; [facility] HUMIDFR&M ASK O2 CONC 1 [...] SYS EQUIP. L EQUIP. L RENT; [facility] HUMIDFR&M ASK PRTBLE E0431 KAMALJIT KAMALJIT GASEOUS 0 HOME MED HOME MED O2 SYS EQUIP. L EQUIP. L RENT; [facility] HUMIDFR&M ASK O2 CONC 1 E1390 [place] 0 HOME MED HOME MED 85%/>02 EQUIP. L EQUIP. L CONC AT [facility] FLW RATE O2 CONC 1 E1390 [place] 0 HOME MED HOME MED 85%/>02 EQUIP. EQUIP. CONC AT [facility] FLW RATE PRTBLE E0431 KAMALJIT KAMALJIT GASEOUS 0 HOME MED HOME MED O2 SYS EQUIP. EQUIP. RENT; [facility] HUMIDFR&M ASK PRTBLE E0431 KAMALJIT KAMALJIT GASEOUS 0 HOME MED HOME MED O2 SYS EQUIP. EQUIP. RENT; [facility] HUMIDFR&M ASK O2 CONC 1 E1390 [place] 0 HOME MED HOME MED 85%/>02 EQUIP. EQUIP. CONC AT [facility] FLW RATE O2 CONC 1 E1390 [place] 0 HOME MED HOME MED 85%/>02 EQUIP. EQUIP. CONC AT [facility] FLW RATE PRTBLE E0431 KAMALJIT KAMALJIT GASEOUS 0 HOME MED HOME MED O2 SYS EQUIP. EQUIP. RENT; [facility]TR HUMIDFR&M ASK PRTBLE E0431 KAMALJIT SEVILLARELL GASEOUS 0 HOME MED HOME MED O2 SYS EQUIP. EQUIP. RENT; [facility] HUMIDFR&M ASK O2 CONC 1 E1390 [place]IT [place] 0 HOME MED HOME MED 85%/>02 EQUIP. EQUIP. CONC AT [facility] FLW RATE O2 CONC 1 E1390 [place] 0 HOME MED HOME MED 85%/>02 EQUIP. EQUIP. CONC AT [facility] FLW RATE PRTBLE E0431 KAMALJIT SEVILLARELL GASEOUS 0 HOME MED HOME MED O2 SYS EQUIP. EQUIP. RENT; [facility] HUMIDFR&M ASK CATARACT [address]229 [facility], REMOVAL 0 I EYE [facility] ANESTHESI 26697 INDEPENDE HIPOLITO, A EYE 0 NT ALAM LENS ANESTHESI SURGERY OLOGIST ANESTHESI 70894 INDEPENDE JAMAAL, A EYE 0 NT FAVIOLA LENS ANESTHESI J SURGERY OLOGIST CATARACT 44147 [facility], REMOVAL 0 I EYE [facility] OPH BMTRY 38856 [facility], PRTL 0 I EYE [facility] INTRFRMTR Y IO LENS PWR JAIRON OPHTH 08893 [facility] 9 I EYE CANDY Shea &NIMESH [place] COMPRHNSV ESTAB PT 1/> HOSPITAL 16171 PATIENT [facility], DISCHARGE 9 FIRST CASSANDRA G DAY PHYS MANAGEMEN T 30 MIN/< INITIAL 72374 PATIENT [facility], HOSPITAL 9 FIRST CASSANDRA G CARE/DAY PHYS 70 MINUTES RADIOLOGI 18792 RADIOLOGY Olegario MARTINEZ 9 ROBERT Shea EXAMINATI ASSOCIATE ON CHEST S PSC SINGLE VIEW FRONTAL ECG 17529 [facility] 9 C NIVA ECG CARDIOLOG W/LEAST ISTS INC 12 LDS I&R ONLY RHYTHM 64413 EMERGENCY HERFEL, ECG 1-3 9 CARE AGUILAR U LEADS PHYS INTERPRET [facility] [place] [facility] [address] [facility], [facility] FIRST [place] C DAY PHYS MANAGEMEN T 30 MIN/< RADIOLOGI 99243 RADIOLOGY Olegario SLAUGHTER EXAM 9 KO H CHEST 2 ASSOCIATE VIEWS S PSC FRONTAL&L ATERAL SBSQ 75757 PATIENT [facility] 9 FIRST [place] C CARE/DAY PHYS 25 MINUTES SBSQ 10349 PATIENT [facility] 9 FIRST [place] C CARE/DAY PHYS 25 MINUTES SBSQ 07007 PATIENT [facility] 9 FIRST [place] C CARE/DAY PHYS 25 MINUTES SBSQ 94078 PATIENT [facility] 9 FIRST [place] C CARE/DAY PHYS 25 MINUTES INITIAL 11894 PATIENT [facility] 9 [place] CARE/DAY PHYS 50 MINUTES AMBULANCE A0429 [facility] SERVICE 9 CO FIRE CO FIRE BLS PROTECTIO PROTECTIO EMERGENCY N DIST #1 N DIST #1 TRANSPORT GROUND A0425 [facility] MILEAGE 9 CO FIRE CO FIRE PER PROTECTIO PROTECTIO STATUTE N DIST #1 N DIST #1 MILE ECG 91046 DIAGNOSTI JAYJAY, ROUTINE 9 C NIVA ECG CARDIOLOG W/LEAST ISTS INC 12 LDS I&R ONLY RADIOLOGI 32149 RADIOLOGY Olegario FOX 9 PALLAVI R EXAMINATI ASSOCIATE ON CHEST S PSC SINGLE VIEW FRONTAL AMB A0422 [facility] OXYGEN&O2 9 CO FIRE CO FIRE SUPPLIES PROTECTIO PROTECTIO LIFE N DIST #1 N DIST #1 [facility] 50651 PATIENT [facility], DISCHARGE 9 [place] DAY PHYS MANAGEMEN T 30 MIN/< SBSQ 80889 PATIENT [facility] 9 [place] CARE/DAY PHYS 25 MINUTES SBSQ 39201 PATIENT [facility] 9 FIRST [place] C CARE/DAY PHYS 25 MINUTES SBSQ 71589 PATIENT [facility] 9 [place] CARE/DAY PHYS 25 MINUTES ECG 94179 DIAGNOSTI SUKUMAROLD ROUTINE 9 C , TATE J ECG CARDIOLOG W/LEAST ISTS INC 12 LDS I&R ONLY ECG 23436 DEJON WHITING ROUTINE 9 C , TATE J ECG CARDIOLOG W/LEAST ISTS INC 12 LDS I&R ONLY RADIOLOGI 55728 RADIOLOGY Olegario STONE EXAM 9 CHEST 2 ASSOCIATE NATHANIEL BLACKMON S PSC A FRONTAL&L ATERAL GROUND A0425 [facility] MILEAGE 9 CO FIRE CO FIRE PER PROTECTIO PROTECTIO STATUTE N DIST #1 N DIST #1 MILE ALS A0398 [facility]OUTINE 9 CO FIRE CO FIRE DISPOSABL PROTECTIO PROTECTIO E N DIST #1 N DIST #1 SUPPLIES INITIAL 05402 PATIENT [facility] 9 [place] CARE/DAY PHYS 50 MINUTES AMB A0427 [facility] 9 CO FIRE CO FIRE ALS PROTECTIO PROTECTIO EMERGENCY N DIST #1 N DIST #1 TRANSPORT LEVEL 1 RHYTHM 32639 EMERGENCY JUAN ANTONIO, ECG 1-3 9 CARE MIMI D LEADS PHYS INTERPRET [facility] [place] [facility] 14878 JIMBO ALEGRIA, MEDICAL 9 VISION CARLA M XM&EVAL COMPRE NEW PT 1/> VST BASIC 26329 KENYATTA YOU METABOLIC 9 [facility] PANEL INC INC CALCIUM TOTAL LIPID 14087 K[facility]TA YOU PANEL 9 [facility] INC INC HEPATIC 04351 KENY[facility]TA YOU FUNCTION 9 [facility] PANEL INC INC HOSPITAL 57642 [facility] DISCHARGE 9 JR, J V JR, J V DAY MANAGEMEN T 30 MIN/< SBSQ 95001 [facility] 9 JR, J V JR, J V CARE/DAY 15 MINUTES SBSQ 45775 [facility] 9 JR, J V JR, J V CARE/DAY 25 MINUTES GROUND A0425 [facility] MILEAGE 9 AMBULANCE AMBULANCE PER SERVICE SERVICE STATUTE MILE INITIAL 68355 [facility] 9 JR, J V JR, J V CARE/DAY 50 MINUTES ECG 06377 KENYATTA ADAMS, ROUTINE 9 [facility] W/LEAST PROF SERV 12 LDS I&R ONLY RADIOLOGI 66881 [place] RUSS 9 MEDICAL CAROL EXAMINATI IMAGING ON CHEST ASSOCIATE SINGLE S VIEW FRONTAL AMB A0427 [facility] CERV[facility] SERVICE 9 AMBULANCE AMBULANCE ALS SERVICE SERVICE EMERGENCY TRANSPORT LEVEL 1 AMB A0422 [facility] CERV[facility] OXYGEN&O2 9 AMBULANCE AMBULANCE SUPPLIES SERVICE SERVICE LIFE SUSTAININ G SITUATION OBSERVATI 78206 Claudia MITCHELL ON CARE 9 LUIS ALBERTO Melvin DISCHARGE PSC MANAGEMEN T INITIAL 27231 Claudia MITCHELL OBSERVATI 9 [place] Melvin ON PSC CARE/DAY 50 MINUTES GROUND A0425 [facility] CERV[facility] MILEAGE 9 AMBULANCE AMBULANCE PER SERVICE SERVICE STATUTE MILE ECG 37893 KENYATTA BELLE ROUTINE 9 [facility] CORDELL Watson W/DI PROF SERV 12 LDS I&R ONLY AMB A0422 [facility] CERVANTES OXYGEN&O2 9 AMBULANCE AMBULANCE SUPPLIES SERVICE SERVICE LIFE SUSTAININ G SITUATION AMB A0427 [facility] CERVANTES SERVICE 9 AMBULANCE AMBULANCE ALS SERVICE SERVICE EMERGENCY TRANSPORT LEVEL 1 RADIOLOGI 24343 [place] RUSS 9 MEDICAL CAROL EXAMINATI IMAGING ON CHEST ASSOCIATE SINGLE S VIEW FRONTAL AMB A0427 [facility] CERVANTES SERVICE 9 AMBULANCE AMBULANCE ALS SERVICE SERVICE EMERGENCY TRANSPORT LEVEL 1 AMB A0422 B[facility] CERVANTES OXYGEN&O2 9 AMBULANCE AMBULANCE SUPPLIES SERVICE SERVICE LIFE SUSTAININ G SITUATION BLOOD 95210 KENY[facility]TA YOU COUNT 9 [facility] COMPLETE INC INC AUTO&AUTO DIFRNTL WBC COMPREHEN 85608 K[facility]TA YOU SIVE 9 [facility] METABOLIC INC INC PANEL RADIOLOGI 45641 [place] Olegario BHANDARI EXAM 9 MEDICAL [place] P CHEST 2 IMAGING VIEWS ASSOCIATE FRONTAL&L S ATERAL BLOOD 76252 KENY[facility]TA YOU GASES ANY 9 [facility] INC INC COMBINATI ON PH PCO2 PO2 CO2 HCO3 GROUND A0425 BILLY CERVANTES MILEAGE 9 AMBULANCE AMBULANCE PER SERVICE SERVICE STATUTE MILE PRESSURIZ 95807 KENYATTA YOU ED/NONPRE 8 [facility] SSURIZED INC INC INHALATIO N TREATMENT ECG 16821 KENYATTA ADAMS, ROUTINE [address] [facility] [place] W/LEAST PROF SERV 12 LDS I&R ONLY ECG 91405 KENYATTA YOU ROUTINE 8 [facility] ECG INC INC W/LEAST 12 LDS TRCG ONLY W/O I&R IV NFS 96635 KENYATTA YOU THER 8 [facility] PROPH/DX INC INC 1ST >1 HR BASIC 45649 KENYATTA YOU METABOLIC 8 [facility] PANEL INC INC CALCIUM TOTAL CREATINE 02394 KENYATTA YOU KINASE 8 [facility] TOTAL INC INC RHYTHM 29519 KENYATTA YOU ECG 1-3 8 [facility] LEADS INC INC TRACING ONLY W/O I&R IV NFUS 55268 KEN[facility]TA YOU THER 8 [facility] PROPH/DX INC INC EA HR PRESSURIZ 22744 KENYATTA YOU ED/NONPRE 8 [facility] SSURIZED INC INC INHALATIO N TREATMENT CREATINE 28306 KENYATTA YOU KINASE MB 8 [facility] FRACTION INC INC ONLY BLOOD 88153 KENY[facility]TA YOU COUNT 8 [facility] COMPLETE INC INC AUTO&[place] [address] KENYATTA YOU TROPONIN 8 [facility] QUANTITAT INC INC CARLOS NATRIURET 49473 KENYATTA YOU IC 8 [facility] PEPTIDE INC INC RADIOLOGI 96705 KENYATTA YOU C 8 [facility] EXAMINATI INC INC ON CHEST SINGLE VIEW FRONTAL BLS A0382 LINDA LINDA ROUTINE 8 CO CO DISPOSABL AMBULANCE AMBULANCE E SERVICE SERVICE SUPPLIES GROUND A0425 LINDA LINDA MILEAGE 8 CO CO PER AMBULANCE AMBULANCE STATUTE SERVICE SERVICE MILE AMBULANCE A0429 LINDA LINDA SERVICE 8 CO CO BLS AMBULANCE AMBULANCE EMERGENCY SERVICE SERVICE TRANSPORT [facility] 48306 [facility] 8 Jamee SANTOYO JR, J V DAY MANAGEMEN T 30 MIN/< SBSQ 92605 [facility] 8 JR, J V JR, J V CARE/DAY 15 MINUTES SBSQ 48228 [facility] 8 JR, J V JR, J V CARE/DAY 15 MINUTES SBSQ [address] E CARE/DAY EMD 25 MINUTES SBSQ [address] E CARE/DAY EMD 25 MINUTES SBSQ [address] E CARE/DAY EMD 25 MINUTES RADIOLOGI 02693 Olegario REYES EXAM 8 MEDICAL [place] P CHEST 2 IMAGING VIEWS ASSOCIATE FRONTAL&L S ATERAL GROUND A0425 [facility] MILEAGE 8 AMBULANCE AMBULANCE PER SERVICE SERVICE STATUTE MILE INITIAL [address] E CARE/DAY EMD 50 MINUTES AMB A0427 [facility] SERVICE 8 AMBULANCE AMBULANCE ALS SERVICE SERVICE EMERGENCY TRANSPORT LEVEL 1 AMB A0422 [facility] OXYGEN&O2 8 AMBULANCE AMBULANCE SUPPLIES SERVICE SERVICE LIFE SUSTAININ G SITUATION AMB A0422 LINDA LINDA OXYGEN&O2 8 CO CO SUPPLIES AMBULANCE AMBULANCE LIFE SERVICE SERVICE SUSTAININ G SITUATION THER 90000 [facility] PROPH/DX [address] [place] [address] SEQL [place] P[place] SBST/[place] [address] [facility] TROPONIN [address] [place] [address] QUANTITAT [facility] CARLOS BLOOD 97482 [facility] ST [place] COUNT [address] [place] [address] AUTO&AUTO DIFRNTL WBC RADIOLOGI 12939 RADIOLOGY Olegario [place] EXAMINAMYRTLE ASSOCIATE ON CHEST S PSC SINGLE VIEW FRONTAL GROUND A0425 LINDA LINDA MILEAGE 8 CO CO PER AMBULANCE AMBULANCE STATUTE SERVICE SERVICE MILE AMBULANCE A0429 LINDA LINDA SERVICE 8 CO CO BLS AMBULANCE AMBULANCE EMERGENCY SERVICE SERVICE TRANSPORT FIBRIN 35671 [facility] DGRADJ [address] [place] [address] D-DIMER ULTRASENS ITIVE BASIC 05384 [facility] METABOLIC [address] [place] [address] CALCIUM TOTAL ECG 322[address] [facility] [address] KE ROUTINE 8 [facility] ECG [facility] W/LEAST 12 LDS TRCG ONLY W/O I&R THER 03138 [facility] PROPH/DX [address] [place] [address] NJX IV [facility] PUSH 1ST [facility] 35456 PATIENT KLAUDIA, DISCHARGE 8 FIRST CASSANDRA G DAY PHYS MANAGEMEN T 30 MIN/< SBSQ 41479 PATIENT [facility] 8 [place] CARE/DAY PHYS 15 MINUTES INITIAL 17446 PATIENT [facility] 8 [place] CARE/DAY PHYS 50 MINUTES DOPPLER 57993 CARDIOLOG GARCIA, ECHOCARD 8 Y SHELBI D PULSE ASSOCIATE WAVE S W/SPECTRA L DISPLAY ECHO 38736 CARDIOLOG GARCIA, TRANSTHOR 8 Y SHELBI D AC R-T 2D ASSOCIATE W/WO S M-MODE REC COMP GROUND A0425 LINDA LINDA MILEAGE 8 CO CO PER AMBULANCE AMBULANCE STATUTE SERVICE SERVICE MILE AMBULANCE A0429 LINDA LINDA SERVICE 8 CO CO BLS AMBULANCE AMBULANCE EMERGENCY SERVICE SERVICE TRANSPORT RADIOLOGI 43195 RADIOLOGY NEILS, C EXAM 8 NOEMY W CHEST 2 ASSOCIATE VIEWS S PSC FRONTAL&L ATERAL ECG 01752 DEJON ROJAS, ROUTINE 8 C FAUSTINO ECG CARDIOLOG W/LEAST ISTS INC 12 LDS I&R ONLY BLS A0382 LINDA LINDA ROUTINE 8 CO CO DISPOSABL AMBULANCE AMBULANCE [place] [address] [facility] TROPONIN [address] [place] [address] QUANTITAT [facility] CARLOS BLOOD 02930 [facility] ST [place] COUNT [address] [place] [address] COMPLETE [facility] AUTOMATED ECG 82420 DEJON WHITING ROUTINE 8 C , TATE J ECG CARDIOLOG W/LEAST ISTS INC 12 LDS I&R ONLY RADIOLOGI 34141 [facility] C EXAM [address] [place] [address] CHEST 2 EAST EAST VIEWS FRONTAL&L ATERAL AMBULANCE A0429 LINDA LINDA SERVICE 8 CO CO BLS AMBULANCE AMBULANCE EMERGENCY SERVICE SERVICE TRANSPORT GROUND A0425 LINDA LINDA MILEAGE 8 CO CO PER AMBULANCE AMBULANCE STATUTE SERVICE SERVICE MILE BASIC 25577 [facility] METABOLIC [address] [place] [address] PANEL EAST EAST CALCIUM TOTAL THER 38735 [facility] PROPH/DX 8 [facility] NJX IV [facility] PUSH 1ST SBST/DRUG ECG 67325 [facility] ROUTINE [address] [place] [address] ECG [facility] W/LEAST 12 LDS TRCG ONLY W/O I&R BASIC 26544 PATIENT KALFAS, METABOLIC 8 FIRST [place] C PANEL PHYS CALCIUM TOTAL LIPID 56801 PATIENT KALFAS, PANEL 8 FIRST SAILNA C PHYS ECG 77733 KENYATTA ADAMS, ROUTINE [address] [facility] [place] W/LEAST PROF SERV 12 LDS I&R ONLY AMBULANCE A0429 LINDA LINDA SERVICE 8 CO CO BLS AMBULANCE AMBULANCE EMERGENCY SERVICE SERVICE TRANSPORT GROUND A0425 LINDA LINDA MILEAGE 8 CO CO PER AMBULANCE AMBULANCE STATUTE SERVICE SERVICE MILE PRESSURIZ 65129 KENYATTA YOU ED/NONPRE 8 [facility] SSURIZED INC INC INHALATIO N TREATMENT CREATINE 26651 KENYATTA YOU KINASE MB 8 [facility] FRACTION INC INC ONLY BLOOD 70879 KENYATTA YOU COUNT 8 [facility] COMPLETE INC INC AUTO&[place] [address] KENYATTA YOU TROPONIN 8 [facility] H[facility]OS[facility] QUANTITAT INC INC CARLOS BLS A0382 LINDA LINDA ROUTINE 8 CO CO DISPOSABL AMBULANCE AMBULANCE E SERVICE SERVICE SUPPLIES RADIOLOGI 69221 Olegario REYES 8 PRADEEP Phillips EXAMINATI IMAGING ON CHEST ASSOCIATE SINGLE S VIEW FRONTAL BASIC 14172 KENYATTA YOU METABOLIC 8 [facility] PANEL INC INC CALCIUM TOTAL ECG 20004 KENYATTA YOU ROUTINE 8 [facility] ECG INC INC W/LEAST 12 LDS TRCG ONLY W/O I&R CREATINE 95351 KENYATTA YOU KINASE 8 [facility] TOTAL [facility] [address] [facility] DISCHARGE 8 JR, J V JR, J V DAY MANAGEMEN T 30 MIN/< SBSQ 80311 [facility] 8 JR, J V JR, J V CARE/DAY 25 MINUTES INITIAL 55687 [facility] 8 JR, J V JR, J V CARE/DAY 50 MINUTES INITIAL 32110 [facility] OBSERVATI 8 JR, J V JR, J V ON CARE/DAY 50 MINUTES RADIOLOGI 68879 Olegario REYES EXAM 8 MEDICAL [place] P CHEST 2 IMAGING VIEWS ASSOCIATE FRONTAL&L S ATERAL ECG 68562 KENYATTA BELLE ROUTINE 8 [facility] W/LEAST PROF SERV 12 LDS I&R ONLY AMBULANCE A0429 LINDA LINDA SERVICE 8 CO CO BLS AMBULANCE AMBULANCE EMERGENCY SERVICE SERVICE TRANSPORT GROUND A0425 LINDA LINDA MILEAGE 8 CO CO PER AMBULANCE AMBULANCE STATUTE SERVICE SERVICE MILE BLS A0382 LINDA LINDA ROUTINE 8 CO CO DISPOSABL AMBULANCE AMBULANCE E SERVICE SERVICE [facility] 70670 EMILY DIAZ, DISCHARGE 8 [facility] E DAY EMD MANAGEMEN T 30 MIN/< RADIOLOGI 52000 Olegario REYES EXAM 8 MEDICAL [place] P CHEST 2 IMAGING VIEWS ASSOCIATE FRONTAL&L S ATERAL SBSQ [address] E CARE/DAY EMD 25 MINUTES SBSQ [address] E CARE/DAY EMD 25 MINUTES ECG 77056 KENYATTA DIAZ, ROUTINE 8 [facility] W/LEAST PROF SERV 12 LDS I&R ONLY SBSQ [address] E CARE/DAY EMD 25 MINUTES SBSQ 64257 [facility] 8 [facility] E CARE/DAY EMD 25 MINUTES AMBULANCE [id number] LINDA LINDA SERVICE 8 [facility] AMBULANCE AMBULANCE EMERGENCY SERVICE SERVICE TRANSPORT ECG 20473 KENYATTA DIAZ, ROUTINE 8 [facility] W/LEAST PROF SERV 12 LDS I&R ONLY GROUND A0425 LINDA LINDA MILEAGE 8 [facility] PER AMBULANCE AMBULANCE STATUTE SERVICE SERVICE MILE INITIAL 48942 EMILY [facility] 8 [facility] CARE/DAY EMD 50 MINUTES RADIOLOGI 37179 Olegario MOLINA 8 MEDICAL CAROL EXAMINATI IMAGING ON CHEST ASSOCIATE SINGLE S VIEW FRONTAL BLS [id number] LINDA LINDA ROUTINE 8 [facility] CO DISPOSABL AMBULANCE AMBULANCE E SERVICE SERVICE SUPPLIES Encounters Encounter Start End Date Code Location Performer Type Date EMERGENCY [facility]2841 [facility] 7 PHYSICIAN U VISIT S[facility] HIGH SEVERITY& [facility] [place] - [facility] 7 [facility] T EMERGENCY 53398 [place] 7 7 [facility] T VISIT HIGH/URGE NT SEVERITY H[facility] [place] - 7 7 [facility] INPATIENT INC EMERGENCY 20186 [facility] DE[facility] 7 7 PHYSICIAN VISIT S, [facility] HIGH SEVERITY& [facility] 99422 [place] [facility] 6 6 [facility] VISIT INC HIGH [facility]VERITY& [facility] [place] - 6 6 [facility] OUTPATIEN INC T EMERGENCY 90730 [place] 6 6 [facility] DEPARTMEN INC T VISIT HIGH/URGE NT SEVERITY HOSPITAL [place] - 6 6 [facility] OUTPATIEN INC T EMERGENCY 43458 [facility] DEPT 6 6 [facility] VISIT INC HIGH SEVERITY& [facility] [place] - 6 6 [facility] OUTPATIEN [facility] T OFFICE 71099 [facility] 6 6 NATHANIEL N T [facility]ISIT MED CTR 15 [facility] [address] - [address] [facility] OFFICE 84759 JAYJAY NIV OUTPATIEN 6 6 NAHTANIEL T VISIT 25 PHYSICIAN MINUTES S OFFICE 19705 [facility] NIV OUTPATIEN 6 6 NATHANIEL T VISIT 25 PHYSICIAN MINUTES S OFFICE 34603 [facility] 6 6 NATHANIEL T VISIT 25 PHYSICIAN MINUTES S OFFICE 45861 [facility] NATHANIEL YEAR LAT T VISIT 15 PHYSICIAN MINUTES S OFFICE 33312 [facility] 5 5 NATHANIEL ALDAIR T VISIT 15 PHYS[address] [facility] 5 [facility] 4 [facility] 4 [facility] 4 4 NATHANIEL INPATIENT [facility] - 4 4 [facility] 3 3 [facility] T [facility] - [facility] 3 [facility] [address]1076 [facility] 3 3 N JORDYN N JORDYN T VISIT 15 MINUTES OFFICE 36600 [facility] 3 3 NATHANIEL T VISIT [address] [facility] [address] - 3 3 NATHANIEL OUTPATIEN FT T [facility]OB[facility] OFFICE 33799 [facility] OUTPATIEN 3 3 T VISIT 15 MINUTES OFFICE 38480 [facility] M[facility]UIRE OUTPATIEN 3 3 JAM JAM T VISIT [address] - 3 3 NATHANIEL OUTPATIEN [facility] OFFICE 77123 [facility] OUT[facility] 3 3 YEAR LAT YEAR LAT T VISIT 25 MINUTES [facility]PITAL [facility] - OTHER 3 3 [facility] OFFICE 73094 LEANDRA MOBLEY OUTPATIEN 3 3 N JORDYN N JORDYN T VISIT 15 MINUTES [facility] 3 3 NATHANIEL OUTPATIEN FT T [facility] OFFICE 38574 ST OUTPATIEN 3 3 NATHANIEL T VISIT 5 FT MINUTES [facility] ST - 3 3 NATHANIEL OUTPATIEN FT T [facility]OB[facility] OFFICE 83939 LEANDRA MOBLEY OUTPATIEN 3 3 N JORDYN N JORDYN T VISIT 15 MINUTES OFFICE 88373 [facility] [facility] 3 3 JOSE MANUELI M MATIAS M T VISIT 15 MINUTES OFFICE 54568 LEANDRA MOBLEY OUTPATIEN 3 3 N JORDYN N JORDYN T VISIT [address] - 3 3 NATHANIEL OUTPATIEN FT T BOBBY OFFICE 15942 LEANDRA MOBLEY OUTPATIEN 3 3 N JORDYN N JORDYN T VISIT 25 MINUTES OFFICE 35280 BROWN-PUR BROWN-PUR OUTPATIEN 3 3 YEAR LAT YEAR LAT T NEW 30 MINUTES OFFICE 34830 LEANDRA MOBLEY OUTPATIEN 3 3 N JORDYN N JORDYN T VISIT 25 MINUTES OFFICE 62142 LEANDRA MOBLEY OUTPATIEN 3 3 N JORDYN N JORDYN T VISIT 25 MINUTES OFFICE 47882 LEANDRA MOBLEY OUTPATIEN 3 3 N JORDYN N JORDYN T VISIT [address] TROGDON CONSULTAT 3 3 NATHANIEL SENTHIL ION NEW/ESTAB PHYSICIAN PATIENT S [address] OUTPATIEN 3 3 NATHANIEL T VISIT 5 FT MINUTES [facility] ST - 3 3 NATHANIEL OUTPATIEN FT T [place] OFFICE 82534 SHO SHAH OUTPATIEN 3 3 T NEW 45 MINUTES OFFICE 11159 LEANDRA BARNESMAN OUTPATIEN 3 3 N JORDYN N JORDYN T NEW 60 MINUTES OFFICE 99794 CARLENE CONCEPCION OUTPATIEN 3 3 JR. JONNY FULLER T VISIT 15 MINUTES [facility] [place] [facility] T OFFICE 30145 BARBRA RIDDLE 3 3 JR CHRYSTAL JARRELL T VISIT 15 MINUTES OFFICE 72330 CARLENE CONCEPCION OUTPATIEN 3 3 JR. JONNY GIRARD NEW 45 MINUTES [facility] [place] [facility] [place] - [facility] [place] - 3 3 [facility] INPATIENT INC OFFICE 22147 BARBRA RIDDLE 2 2 JR CHRYSTAL JARRELL T VISIT 15 MINUTES EMERGENCY 90944 NILSA CHAVEZ DEPT 2 2 EMERGENCY VISIT SERVICES HIGH SEVERITY& THREAT [facility] [place] - 2 2 [facility] OUTPATIEN INC T OFFICE 58620 BRODIE NIDA WHLEYDI NIDA CONSULTAT 2 2 ION NEW/ESTAB PATIENT 60 MIN OFFICE 20550 BESSON BESSON OUTPATIEN 2 2 MAURO MAURO T VISIT 25 MINUTES [facility] [place] - 2 2 [facility] [place] [facility] 2 [facility] 43681 BESSON BESSON OUTPATIEN 2 2 MAURO MAURO T VISIT 25 MINUTES OFFICE 22680 BESSON BESSON OUTPATIEN 2 2 MAURO MAURO T VISIT 15 MINUTES OFFICE 11886 BESSON BESSON OUTPATIEN 2 2 MAURO MAURO T VISIT 25 MINUTES [facility] [place] - 2 2 [facility] 76356 BARBRA BELLE OUTPATIEN 2 2 JR CHRYSTAL JR CHRYSTAL T VISIT 15 MINUTES [facility] [place] - 2 2 [facility] [place] [facility] 2 [facility] [place] - 1 1 [facility] INPATIENT [facility] EMERGENCY 90174 HEBER BUCK DEPT 1 1 [facility] DIONNA VISIT [facility]IGH SEVERITY& THREAT [facility] [place] - 1 1 [facility] 20167 [place] 1 1 [facility] VISIT LOW/MODER SEVERITY EMERGENCY 47516 NILSA SILVERIO DEPT 1 1 EMERGENCY III CHRYSTAL VISIT SERVICES HIGH SEVERITY& THREAT [facility] ST - 1 1 [facility] 56657 EMERGENCY JEAN-CLAUDE DEPT 1 1 CARE CESAR VISIT PHYS HIGH NORTHERN SEVERITY& THREAT [facility] ST - 1 1 [facility] EMERGENCY [address]32 ST DEPT 1 1 NATHANIEL VISIT FT HIGH BOBBY SEVERITY& THREAT [facility] OFFICE [address] ST LACEY OUTPATIEN 1 1 NATHANIEL NIDA T VISIT 25 PHYSICIAN MINUTES S EMERGENCY 02944 EMERGENCY JUAN ANTONIO DEPT 1 1 CARE MARCIN VISIT PHYS HIGH NORTHERN SEVERITY& THREAT [facility] OFFICE 89952 [facility] LACEY OUTPATIEN 0 0 NATHANIEL ALDEN T VISIT 25 PHYSICIAN MINUTES S OFFICE 14981 MOJGAN HERRMANNPATIEN 0 0 NATHANIEL ALDEN T VISIT 15 PHYSICIAN MINUTES S OFFICE 59325 MOJGAN HERRMANNPATIEN 0 0 NATHANIEL ALDEN T VISIT 25 PHYSICIAN MINUTES S OFFICE 82677 [facility] OUTPATIEN 0 0 I EYE EDWARD J T NEW 45 INSTITUTE MINUTES OFFICE 64833 PATIENT VENKATESH LACEY 9 9 [facility] T VISIT PHYS 25 MINUTES EMERGENCY 21370 EMERGENCY MELO, DEPT 9 9 CARE AGUILAR U VISIT PHYS HIGH [place]THER[place] SEVERITY& [place] THREAT [facility] [address] OFFICE 42008 PATIENT VENKATESH LACEY 9 9 [facility] T VISIT PHYS 25 MINUTES EMERGENCY 00796 EMERGENCY SEJAL, DEPT 9 9 CARE ERNST VISIT PHYS HIGH [place] SE[place]& [place] [facility] EMERGENCY 46572 EMERGENCY JUAN ANTONIO, DEPT 9 9 CARE MIMI D VISIT PHYS HIGH [place] SEVER[place]& [place] THREAT [facility] [place] - 9 9 [facility] OUTPATIEN INC T EMERGENCY 05551 NILSA BUCK, DEPT 9 9 EMERGENCY CASSANDRA S VISIT SERVICES HIGH SEVERITY& ASSOCIATE THREAT [facility] [place] - 9 9 [facility] INPATIENT INC EMERGENCY 09719 NILSA BUCK, DEPT 9 9 EMERGENCY CASSANDRA S VISIT SERVICES HIGH SEVERITY& ASSOCIATE THREAT S [facility] [place] - 9 9 [facility] INPATIENT INC OFFICE 28700 GHADA [facility] Jamee SANTOYO JR, J V T VISIT 15 MINUTES OFFICE 09888 GHADA URRUTIA [facility] Jamee SANTOYO JR, J V T VISIT 15 MINUTES EMERGENCY 39931 [place] 9 9 [facility] VISIT MODERATE SEVERITY EMERGENCY 61634 CAMILO MERCADO, CHERISET 9 9 NATIONAL KRYSTAL VISIT CORPORATI O HIGH ON SEVERITY& THREAT [facility] [place] - 9 9 [facility] [place] - 8 8 [facility] 47030 [place] 8 8 [facility] VISIT HIGH/URGE NT SEVERITY [facility] [place] - 8 8 [facility] INPATIENT [facility] EMERGENCY 40719 EMERGENCY [place]OR[place] DEPT 8 8 CARE EDWARD L VISIT PHYS HIGH [place] SEVER[place]& [place] [facility] 69392 [facility] 8 8 [facility] VISIT HIGH/URGE NT SEVERITY HOSPITAL [facility] - 8 [facility] EMERGENCY 41404 EMERGENCY TYRELL DEPT 8 8 CARE CASSANDRA VISIT PHYS HIGH [place]& [place] [facility] 10258 EMERGENCY MORALES DEPT 8 8 CARE RADAMES L VISIT PHYS HIGH [place] SE[place]& [place] THREAT [facility] [place] [address] 8 [facility] EMERGENCY 17804 [facility] DEPT 8 8 HOSPITAL VISIT EAST HIGH SEVERITY& THREAT FUN OFFICE 45041 PATIENT VENKATESH RUDOLPH 8 8 FIRST CASSANDRA Mojica MG 45 PHYS MINUTES EMERGENCY 52698 [place] 8 8 [facility] T VISIT MODERATE SEVERITY [facility]OSP[facility] [place] - 8 8 [facility] T EMERGENCY 12539 [place] 8 8 [facility] T VISIT LIMITED/M INOR PROB [facility]OSPITAL [place] - 8 8 [facility] OUTPATIEN [facility] T EMERGENCY 00006 [place] ZARATE, 8 8 [facility] T VISIT PROF SERV LOW/MODER SEVERITY [facility] [place] - 8 8 [facility] INPATIENT [facility] [place] [facility] 8 8 [facility] INPATIENT [facility]
--- OUTSIDE RECORDS SUMMARY | 2017-03-12 13:19 | External Medical Summary Rpt ---
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 RI 76 SC Ac OV 08 -1 -1 70 TE 48 [place] ti EN 51 9- 2- 0 64 FE ve TI 13 20 20 AI R L 20 08 09 D MT HF 1 PH CH A AR AE [...] 34 6- 2- 00 76 N ve NM 59 20 20 AI BA ED 31 [...] #3 O 93 TA 8 BL ET NM 00 09 01 00 6. 25 RI 76 SC Ac OV 08 -1 -1 70 TE 48 [place] ti EN 51 9- 5- 0 64 FE ve TI 13 20 20 AI R L 20 08 09 D MT HF 1 PH CH A AR AE 90 M L #3 G MC 93 G 8 IN [place] LE R AD 00 07 01 00 60 30 RI 76 SC Ac VA 17 -0 -1 .0 TE 48 [place] ti IR 30 7- 5- 00 63 FE ve 69 20 20 AI R 25 60 08 09 D MT 0- 0 PH CH 50 AR AE [...] AR R 25 60 08 08 MA MT 0- 0 CY CH 50 AE #5 L DI 43 G SK 7 US NM 00 09 10 01 6. 25 CV 46 SC Ac OV 08 -1 -2 70 S 94 [place] ti EN 51 9- 3- 0 PH 78 FE ve TI 13 20 20 AR R L 20 08 08 MA MT HF 1 CY CH A AE 90 #5 L 43 G MC 7 G IN [place] LE R NM 00 09 09 00 63 18 CV 46 SC Ac ED 59 -1 -2 .0 S 94 [place] ti NI 15 9- 6- 00 PH 76 FE ve SO 44 20 20 AR R NE 20 08 08 MA MT 1 CY CH 10 AE #5 L MG 43 G 7 TA BL ET AV 00 09 09 00 7. 7 CV 46 SC Ac EL 08 -1 -2 00 S 94 [place] ti OX 51 9- 6- 0 PH 75 FE ve 73 20 20 AR R 40 30 08 08 MA MT 0 1 CY CH MG AE #5 L TA 43 G BL 7 ET 49 09 09 00 25 25 CV 46 SC Ac 50 -1 -2 0. S 94 [place] ti 20 9- 6- 00 PH 77 FE ve 68 20 20 0 AR R 52 08 08 MA MT 6 CY CH AE #5 L 43 G 7 NM 00 09 09 00 6. 25 CV 46 SC Ac OV 08 -1 -2 70 S 94 [place] ti EN 51 9- 6- 0 PH 78 FE ve TI 13 20 20 AR R L 20 08 08 MA MT HF 1 CY CH A AE 90 #5 L 43 G MC 7 G IN [place] LE R 17 07 09 03 17 20 CV 46 SC Ac 27 -0 -1 .0 S 25 [place] ti 00 7- 1- 00 PH 86 FE ve 72 20 20 AR R 10 08 08 MA MT 1 CY CH AE #5 L 43 G 7 17 07 08 02 17 20 CV 46 SC Ac 27 -0 -1 .0 S 25 [place] ti 00 7- 4- 00 PH 86 FE ve 72 20 20 AR R 10 08 08 MA MT 1 CY CH AE #5 L 43 G 7 NI 00 07 08 00 30 30 CV 46 SC Ac 07 -3 -1 .0 S 46 [place] ti PA 43 1- 4- 00 PH 70 FE ve N 07 20 20 AR R ER 49 08 08 MA MT 0 CY CH 50 AE 0 #5 L MG 43 G 7 TA BL ET TR 60 07 08 01 30 30 CV 46 SC Ac AZ 50 -0 -1 .0 S 25 [place] ti OD 52 7- 4- 00 PH 88 FE ve ON 65 20 20 AR R E 30 08 08 MA MT 50 1 CY CH AE MG #5 L 43 G TA 7 BL ET AD 00 07 08 01 60 30 CV 46 SC Ac VA 17 -0 -1 .0 S 25 [place] ti IR 30 7- 4- 00 PH 87 FE ve 69 20 20 AR R 25 60 08 08 MA MT 0- 0 CY CH 50 AE #5 L DI 43 G SK 7 US 17 07 08 01 17 20 CV 46 SC Ac 27 -0 -0 .0 S 25 [place] ti 00 7- 1- 00 PH 86 FE ve 72 20 20 AR R 10 08 08 MA MT 1 CY CH AE #5 L 43 G 7 AD 00 07 07 00 60 30 CV 46 SC Ac VA 17 -0 -1 .0 S 25 [place] ti IR 30 7- 7- 00 PH 87 FE ve 69 20 20 AR R 25 60 08 08 MA MT 0- 0 CY CH 50 AE #5 L DI 43 G SK 7 US 17 07 07 00 17 20 CV 46 SC Ac 27 -0 -1 .0 S 25 [place] ti 00 7- 7- 00 PH 86 FE ve 72 20 20 AR R 10 08 08 MA MT 1 CY CH AE #5 L 43 G 7 TR 60 07 07 00 30 30 CV 46 SC Ac AZ 50 -0 -1 .0 S 25 [place] ti OD 52 7- 7- 00 PH 88 FE ve ON 65 20 20 AR R E 30 08 08 MA MT 50 1 CY CH AE MG #5 L 43 G TA 7 BL ET ME 00 07 07 00 21 6 CV 46 GA Ac TH 78 -0 -1 .0 S 20 IN ti YL 15 1 7- 00 PH 27 EY ve NM 02 20 20 AR ED 20 08 08 MA MT NI 7 CY CH SO AE LO [...] 4- 6- 00 IC 80 Av ve NM 00 20 20 ai ED 10 08 [...] la 1 AR bl MA e CY NM 00 01 03 00 30 13 CV [...] O2 SYS RENT; FLWMTR HUMIDFR&M ASK COLLECTIO 88518 [facility] BLOOD INC INC VENIPUNCT URE BLOOD 89838 [facility] [facility] COUNT 7 [facility] COMPLETE INC INC AUTO&AUTO DIFRNTL WBC PRESSURIZ 97202 [facility] [facility] ED/NONPRE 7 [facility] SSURIZED INC INC INHALATIO N TREATMENT NONINVASI 45012 [place] [facility] VE 7 [facility] EAR/PULSE INC INC OXIMETRY SINGLE DETER BASIC 89316 [place] YOU METABOLIC 7 [facility] PANEL INC INC CALCIUM TOTAL BASIC 45509 [place] YOU METABOLIC 7 [facility] PANEL INC INC CALCIUM TOTAL PRESSURIZ 00093 [place] [facility] ED/NONPRE 7 [facility] SSURIZED INC INC INHALATIO N TREATMENT NONINVASI 69650 [place] [facility] VE 7 [facility] EAR/PULSE INC INC OXIMETRY SINGLE DETER THERAPEUT 50380 [facility] [facility] IC 7 [facility] INJECTION INC INC IV PUSH EACH [facility] G0378 [place] [facility] OBSERVATI 7 [facility] ON INC INC SERVICE PER HOUR COLLECTIO 33357 [place] [facility] N VENOUS 7 [facility] BLOOD INC INC VENIPUNCT URE THER 36123 [facility] [facility] PROPH/DX 7 [facility] NJX IV INC INC PUSH SINGLE/1S T [facility] G0378 [place] YOU OBSERVATI 7 [facility] ON INC INC SERVICE PER HOUR NONINVASI 28858 [facility] [facility] VE 7 [facility] EAR/PULSE INC INC OXIMETRY SINGLE DETER PRESSURIZ 57553 [place] YOU ED/NONPRE 7 [facility] SSURIZED INC INC INHALATIO N TREATMENT PRESSURIZ 01268 [facility] YOU ED/NONPRE 7 [facility] SSURIZED INC INC INHALATIO N TREATMENT ECG 49035 [facility] ROUTINE 7 [facility] W/LEAST P 12 LDS I&R ONLY BLOOD 49649 [place] YOU GASES ANY 7 [facility] INC INC COMBINATI ON PH PCO2 PO2 CO2 HCO3 COMPREHEN 78765 [facility] [facility] SIVE 7 [facility] METABOLIC INC INC PANEL BLOOD 92151 [place] [facility] COUNT 7 [facility] COMPLETE INC INC AUTO&[place] [address] K[place] YOU TROPONIN 7 [facility] QUANTITAT INC INC CARLOS RADIOLOGI 14598 [facility] [facility] C 7 [facility] EXAMINATI INC INC ON CHEST SINGLE VIEW FRONTAL CREATINE 50193 [place] YOU KINASE MB 7 [facility] FRACTION INC INC ONLY ECG 85688 [place] YOU ROUTINE 7 [facility] ECG INC INC W/LEAST 12 LDS TRCG ONLY W/O I&R CREATINE 72955 [facility] YOU KINASE 7 [facility] TOTAL INC INC O2 CONC 1 E1390 PATIENT PATIENT DEL PORT 7 AIDS INC AIDS INC 85%/>02 CONC AT PRS FLW RATE PRTBLE E0431 PATIENT PATIENT GASEOUS 7 AIDS INC AIDS INC O2 SYS RENT; FLWMTR HUMIDFR&M ASK PHYS G0179 [facility] RE-CERT [address] [place] [address]COVR INTERNAL [facility] 83632 [facility] DISCHARGE [address] [place] [address] INTERNAL MANAGEMEN MED T 30 MIN/< SBSQ [address]/DAY INTERNAL 25 MED MINUTES ECG 94637 [facility] DIAZ JR ROUTINE [address] [place] [address] W/LEAST P 12 LDS I&R ONLY SBSQ [address] INTERNAL 25 MED MINUTES RADIOLOGI 43761 [place] [facility] C EXAM 7 MEDICAL CHEST 2 IMAGING VIEWS ASS FRONTAL&L ATERAL ECG 97727 [place] ROUTINE 7 [facility] W/LEAST P 12 LDS I&R ONLY PRTBLE E0431 PATIENT PATIENT GASEOUS 7 AIDS INC AIDS INC O2 SYS RENT; FLWMTR HUMIDFR&M ASK O2 CONC 1 E1390 PATIENT PATIENT DEL PORT 7 AIDS INC AIDS INC 85%/>02 CONC AT [facility] FLW RATE COLLECTIO [address] [facility] N VENOUS 7 [place] BLOOD VENIPUNCT PHYSICIAN URE S PRTBLE E0431 PATIENT PATIENT GASEOUS 6 AIDS INC AIDS INC O2 SYS RENT; FLWMTR HUMIDFR&M ASK O2 CONC 1 E1390 PATIENT PATIENT DEL PORT 6 AIDS INC AIDS INC 85%/>02 CONC AT [facility] G0378 [facility] [facility] OBSERVATI 6 [facility] ON INC INC SERVICE PER HOUR NONINVASI 89159 [place] YOU VE 6 [facility] EAR/PULSE INC INC OXIMETRY SINGLE DETER PRESSURIZ 32762 [place] YOU ED/NONPRE 6 [facility] SSURIZED INC INC INHALATIO N TREATMENT PRESSURIZ 55389 [place] YOU ED/NONPRE 6 [facility] SSURIZED INC INC INHALATIO N TREATMENT NONINVASI 40279 [facility] YOU VE 6 [facility] EAR/PULSE INC INC OXIMETRY SINGLE DETER [facility]OSP[facility] G0378 [place] YOU OBSERVATI 6 [facility] ON INC INC SERVICE PER [facility]OUR [facility] G0378 [place] YOU OBSERVATI 6 [facility] ON INC INC SERVICE PER HOUR BLOOD 76459 [place] YOU COUNT 6 [facility] COMPLETE INC INC AUTO&AUTO DIFRNTL WBC COLLECTIO 29537 [place] Nova VENOUS 6 [facility] BLOOD INC INC VENIPUNCT URE NONINVASI 78024 [place] YOU VE 6 [facility] EAR/PULSE INC INC OXIMETRY SINGLE DETER PRESSURIZ 22091 [place] YOU ED/NONPRE 6 [facility] SSURIZED INC INC INHALATIO N TREATMENT BASIC 16576 [place] YOU METABOLIC 6 [facility] PANEL INC INC CALCIUM TOTAL CREATINE 75456 K[place] YOU KINASE MB 6 [facility] [place] [address] [place] YOU LACTATE 6 [facility] INC INC ECG 62052 [place] YOU ROUTINE 6 [facility] ECG INC INC W/LEAST 12 LDS TRCG ONLY W/O I&R CREATINE 71039 [facility] YOU KINASE 6 [facility] [place] [address] [place] YOU INFUSION 6 [facility] THERAPY/P INC INC ROPHYLAXI S /DX 1ST TO 1 HR THERAPEUT 89424 [facility] [facility] IC 6 [facility] INJECTION INC INC IV PUSH EACH NEW DRUG ECG 01840 [place] DIAZ JR ROUTINE 6 [facility] W/LEAST P 12 LDS I&R ONLY BLOOD 09767 [place] YOU GASES ANY 6 [facility] INC INC COMBINATI ON PH PCO2 PO2 CO2 HCO3 RADIOLOGI 36070 [facility] EXAM 6 MEDICAL CHEST 2 IMAGING VIEWS ASS FRONTAL&L [facility] G0378 [place] YOU OBSERVATI 6 [facility] [place] [address] [place] YOU TROPONIN 6 [facility] QUANTITAT INC INC CARLOS BLOOD 00068 [facility] YOU COUNT 6 [facility] COMPLETE INC INC AUTO&AUTO DIFRNTL WBC COMPREHEN 40634 [facility] YOU SIVE 6 [facility] METABOLIC INC INC PANEL NATRIURET 47411 K[place] YOU IC 6 [facility] PEPTIDE INC INC THER 69895 K[place] YOU PROPH/DX 6 [facility] NJX IV INC INC PUSH SINGLE/1S T SBST/DRUG RADIOLOGI 59730 [facility] 6 MEDICAL EXAMINATI IMAGING ON CHEST ASS SINGLE VIEW FRONTAL COMPREHEN 21225 [facility] YOU SIVE 6 [facility] METABOLIC INC INC PANEL CULTURE 46584 [place] YOU BACTERIAL 6 [facility] BLOOD INC INC AEROBIC W/ID ISOLATES BLOOD 75084 [facility] YOU COUNT 6 [facility] COMPLETE INC INC AUTO&AUTO DIFRNTL WBC THERAPEUT 39349 [facility] YOU IC 6 [facility] INJECTION INC INC IV PUSH EACH NEW DRUG PRESSURIZ 50127 [place] YOU ED/NONPRE 6 [facility] SSURIZED INC [place] [address] [place] YOU LACTATE 6 [facility] INC INC O2 CONC 1 E1390 PATIENT PATIENT DEL PORT 6 AIDS INC AIDS INC 85%/>02 CONC AT PRSC FLW RATE PRTBLE E0431 PATIENT PATIENT GASEOUS 6 AIDS INC AIDS INC O2 SYS RENT; FLWMTR HUMIDFR&M ASK GLUC BLD 01330 [place] YOU GLUC MNTR 6 [facility] DEV INC INC CLEARED FDA SPEC HOME USE BLOOD 70619 [place] YOU COUNT 6 [facility] COMPLETE INC INC AUTO&AUTO DIFRNTL [facility] G0378 [place] YOU OBSERVATI 6 [facility] ON INC INC SERVICE PER HOUR COMPREHEN 70586 [facility] YOU SIVE 6 [facility] METABOLIC INC INC PANEL COLLECTIO 91035 [place] YOU N VENOUS 6 [facility] BLOOD INC INC VENIPUNCT URE PRESSURIZ 01481 [facility] YOU ED/NONPRE 6 [facility] SSURIZED INC INC INHALATIO N TREATMENT NONINVASI 77352 [facility] YOU VE 6 [facility] EAR/PULSE INC INC OXIMETRY SINGLE DETER NONINVASI 73978 [facility] YOU VE 6 [facility] EAR/PULSE INC INC OXIMETRY SINGLE DETER PRESSURIZ 03311 [facility] YOU ED/NONPRE 6 [facility] SSURIZED INC INC INHALATIO N TREATMENT [facility] G0378 [place] YOU OBSERVATI 6 [facility] ON INC INC SERVICE PER HOUR GLUC BLD 87853 [facility] YOU GLUC MNTR 6 [facility] DEV INC INC CLEARED FDA SPEC HOME USE RADIOLOGI 15954 [place] YOU C 6 [facility] EXAMINATI INC INC ON CHEST SINGLE VIEW FRONTAL CULTURE 79743 [facility] YOU BACTERIAL 6 [facility] BLOOD INC INC AEROBIC W/ID ISOLATES COMPREHEN 05095 [facility] YOU SIVE 6 [facility] [place] [address] [facility] YOU TROPONIN 6 [facility] QUANTITAT INC INC [facility] G0378 [facility] YOU OBSERVATI 6 [facility] ON INC INC SERVICE PER HOUR BLOOD 81953 [place] YOU COUNT 6 [facility] COMPLETE INC INC AUTO&AUTO DIFRNTL WBC NONINVASI 05897 [facility] EAR/PULSE [place] [address] [place] YOU INFUSION 6 [facility] THERAPY/P INC INC ROPHYLAXI S /DX 1ST TO 1 HR PRESSURIZ 51358 [facility] YOU ED/NONPRE [facility] SSURIZED INC INC INHALATIO N TREATMENT THERAPEUT 44259 [facility] YOU IC [facility] INJECTION INC INC IV PUSH EACH NEW DRUG INITIAL 45250 [facility] FRYMAN OBSERVATI 6 PHYSICIAN EUG ON S GROUP CARE/DAY 50 MINUTES GLUC BLD 57676 [facility] YOU GLUC MNTR [facility] DEV INC INC CLEARED FDA SPEC HOME USE ECG 97174 KENA[place]TTA DIAZ JR ROUTINE 6 [facility] W/LEAST P 12 LDS I&R ONLY CREATINE 78935 [facility] YOU KINASE MB [facility] [place] [address] [facility] YOU LACTATE 6 [facility] INC INC ECG 21553 [place] YOU ROUTINE 6 [facility] ECG INC INC W/LEAST 12 LDS TRCG ONLY W/O I&R CREATINE 83444 [facility] YOU KINASE 6 [facility] TOTAL INC INC O2 CONC 1 [...] 85%/>02 CONC AT PRSC FLW RATE RADEX 85719 RADIOLOGY [facility] HIPS 6 BILATERAL ASSOCIATE WITH S OF NOTH PELVIS 2 VIEWS RADEX 56729 [facility] LUMBOSACR ASSOCIATE AL 2/3 S OF NOTH VIEWS RADEX 69143 [facility] SPINE 6 [facility] LUMBOSACR FT FT AL BOBBY ROSALES [...] SYS RENT; FLWMTR [place] [address] [facility] [address] [place] [address] PATHOLOGY MED CTR GROSS&DIONNA ROSCOPIC EXAM ANES 51161 ANESTHESI BAKER LOLA UPPER GI 6 A GROUP ENDOSCOPY PRACTICE PROXIMAL TO DUODENUM SBSQ [address]/DAY 25 PHYSICIAN MINUTES S INITIAL [address] CARE/DAY 50 PHYSICIAN MINUTES S SBSQ [address] CARE/DAY 25 PHYSICIAN MINUTES S SBSQ [address] CARE/DAY 25 PHYSICIAN MINUTES S SBSQ [address] CARE/DAY 25 PHYSICIAN MINUTES S [facility] [address] CARE/DAY 25 PHYSICIAN MINUTES S SBSQ [address] CARE/DAY 25 PHYSICIAN MINUTES S INITIAL [address] CARE/DAY [address] [place] [address] RADIOLOGY [place] ANGIOGRAP 6 [facility] CHEST ASSOCIATE W/CONTRAS S OF [facility] T/NONCONT RAST RADIOLOGI 83027 [facility] EXAMINATI ASSOCIATE ON CHEST S OF [facility] SINGLE VIEW FRONTAL PRTBLE E0431 PATIENT PATIENT GASEOUS 6 AIDS INC AIDS INC O2 SYS RENT; [facility] HUMIDFR&M ASK O2 CONC 1 E1390 PATIENT PATIENT DEL PORT 6 AIDS INC AIDS INC 85%/>[address] [facility] [address] MANAGEMEN PHYSICIAN T 30 S MIN/< SBSQ [address] CARE/DAY 25 PHYSICIAN MINUTES S SBSQ [address] CARE/DAY 25 PHYSICIAN MINUTES S MYOCARDIA [address] ST GARCIA BERNICE L SPECT [address] [facility] [place] [address] RADIOLOGY [facility] CERVICAL 6 DOT SPINE W/O ASSOCIATE CONTRAST S OF [facility] MATERIAL CV STRS 27041 [facility] TST 6 NATHANIEL ER TORIBIO XERS&/OR RX CONT PHYSICIAN ECG I&R S ONLY CV STRS 82688 [facility] TST 6 NATHANIEL ER TORIBIO XERS&/OR RX CONT PHYSICIAN ECG W/O S I&R INITIAL [address]/DAY 50 PHYSICIAN MINUTES S SBSQ [address] CARE/DAY 25 PHYSICIAN MINUTES S SBSQ [address] CARE/DAY 25 PHYSICIAN MINUTES S INITIAL [address] CARE/DAY 50 PHYSICIAN MINUTES S PRTBLE [...] 85%/>02 CONC [facility] [address] ST DISCHARGE 5 [facility] MANAGEMEN PHYSICIAN PHYSICIAN T 30 S S MIN/< DUP-SCAN 41793 [facility] XTR VEINS [facility] COMPLETE MED CTR BILATERAL STUDY O2 [...] CONC AT PRS FLW RATE CT THORAX 24154 [facility] 5 NATHANIEL NATHANIEL W/CONTRAS FT FT [...] 85%/>02 CONC AT PRSC FLW RATE PLETHYSMO 08045 [facility] GRAPHY 5 LAT LUNG VOLUMES PHYSICIAN W/WO S AIRWAY RESIST BRNCDILAT 47547 [facility] RSPSE 5 LAT SPMTRY PRE&POST- [place] [address] [facility] DIFFUSING 5 LAT CAPACITY PHYSICIAN S HOSPITAL 29987 [facility] DISCHARGE MANAGEMEN PHYSICIAN T 30 S MIN/< WALKER E0143 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 FOLDING 5 STONE STONE WHEELED MEDICAL MEDICAL ADJUSTABL SVCS SVCS E/FIXED HEIGHT SEAT E0156 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 5 STONE STONE T [facility] SVCS CT THORAX 93436 RADIOLOGY [facility] 5 KAROLYN W/CONTRAS ASSOCIATE T S OF NOTH MATERIAL RADEX 61391 RADIOLOGY [facility] 5 COMPLETE ASSOCIATE MINIMUM 2 [place] [address] [facility] DIFFUSING 4 NATHANIEL IRF CAPACITY MED CTR BRNCDILAT 76863 [facility] 4 NATHANIEL IRF SPMTRY MED CTR PRE&POST- BRNCDILAT ADMN PLETHYSMO 36479 [facility] GRAPHY 4 NATHANIEL IRF LUNG MED CTR VOLUMES W/WO AIRWAY RESIST CT THORAX 79303 RADIOLOGY [facility] BERNICE 4 W/CONTRAS ASSOCIATE T S OF NOTH MATERIAL CT THORAX [address] 4 NATHANIEL NATHANIEL W/CONTRAS FT FT T [facility] 71479 BOB BOB DISCHARGE 4 GAR GAR DAY MANAGEMEN T 30 MIN/< RADIOLOGI 66863 ADRIAAN Melvin 4 MAURO EXAMINATI ON CHEST SINGLE VIEW FRONTAL CT THORAX 31522 RANJIT CHURCH 4 MAURO MAURO W/CONTRAS T [...] [place] [address] THYROID 3 NATHANIEL NATHANIEL STIMULATI MED CTR MED CTR NG 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 ST HORMONE TSH BLOOD [address] COUNT 3 [facility] COMPLETE MED CTR MED CTR AUTO&AUTO 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 ST DIFRNTL WBC COMPREHEN [address] SIVE 3 NATHANIEL NATHANIEL METABOLIC MED CTR MED CTR PANEL 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 ST LIPID [address] PANEL 3 NATHANIEL NATHANIEL MED CTR MED CTR 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 ST PRTBLE E0431 PATIENT PATIENT GASEOUS 3 [...] O2 SYS RENT; FLWMTR HUMIDFR&M ASK COMPREHEN [address] METABOLIC MEDICAL MEDICAL PANEL C C BLOOD 23481 [facility] COUNT 3 N JORDYN N JORDYN [...] 85%/>02 CONC AT PRSC FLW RATE RADEX [address] SPINE 3 [facility]ELANDRÉS CANT[facility] LUMBOSACR FT FT AL 2/3 BOBBY BOBBY VIEWS PRTBLE E0431 PATIENT PATIENT GASEOUS 3 AIDS INC AIDS INC O2 SYS RENT; FLWMTR HUMIDFR&M ASK PET 93526 [facility] [address] ATTENUATI ON SKULL BASE MID-THIGH FLUORODEO A[address] XYGLUCOSE 3 [facility] F-18 FDG MEDICAL MEDICAL DX UP [...] O2 SYS RENT; FLWMTR HUMIDFR&M ASK BLOOD 21260 [facility] N JORDYN N JORDYN COMPLETE AUTO&AUTO DIFRNTL WBC COMPREHEN [id number] METABOLIC MEDICAL MEDICAL PANEL C C LOCM Q9967 [facility] ST 300-399 3 NATHANIEL NATHANIEL MG/ML FT FT IODINE BOBBY BOBBY CONCENTRA TION PER ML CT THORAX 71641 FUNMI FUNMI 3 CHR CHR W/CONTRAS T MATERIAL PRTBLE E0431 PATIENT PATIENT GASEOUS 3 AIDS INC AIDS INC O2 SYS RENT; FLWMTR HUMIDFR&M ASK O2 CONC 1 E1390 PATIENT PATIENT DEL PORT 3 AIDS INC AIDS INC 85%/>02 CONC AT PRSC FLW RATE BLOOD 01502 [facility] COUNT 3 N JORDYN N JORDYN COMPLETE AUTO&AUTO DIFRNTL WBC RADJ DLVR [address] 3/> [facility] FT FT CUSTOM BOBBY BOBBY BLKING 11-19MEV RADJ DLVR [address] 3/> [facility] FT CUSTOM BOBBY BOBBY BLKING 11-19MEV PRTBLE E0431 PATIENT PATIENT GASEOUS 3 AIDS INC AIDS INC O2 SYS RENT; FLWMTR HUMIDFR&M ASK O2 CONC 1 E1390 PATIENT PATIENT DEL PORT 3 AIDS INC AIDS INC 85%/>02 CONC AT PRSC FLW RATE RADJ DLVR [address] 3/> 3 NATHANIEL NATHANIEL AREAS FT FT CUSTOM BOBBY BOBBY BLKING 11-[address]MEV [address]INUIN [address]996 ST G MEDICAL 3 NATHANIEL NATHANIEL PHYSICS FT FT CONSLTJ BOBBY ROSALES NM WK RADJ DLVR [address] 3/> 3 NATHANIEL NATHANIEL AREAS FT FT CUSTOM BOBBY BOBBY BLKING 11-19MEV RADJ DLVR [address] 3/> 3 NATHANIEL NATHANIEL AREAS FT FT CUSTOM BOBBY BOBBY BLKING 11-[address] [place]UT [address]64 [address] IC 3 [facility] RADIOLOGY FT FT PORT BOBBY BOBBY IMAGES(S) RADIATION 53463 SHO BERKOWITZ PRA 3 TREATMENT MANAGEMEN T 5 TREATMENT S RADJ DLVR [address] 3/> 3 NATHANIEL NATHANIEL AREAS FT FT CUSTOM BOBBY BOBBY BLKING 11-19MEV BLOOD 39891 [facility] COUNT 3 JOSE MANUELI Silvia Vega COMPLETE AUTO&AUTO DIFRNTL WBC RADJ DLVR [address] 3/> 3 NATHANIEL NATHANIEL AREAS FT FT CUSTOM BOBBY BOBBY BLKING 11-[address] G MEDICAL 3 NATHANIEL NATHANIEL PHYSICS FT FT CONSLTJ BOBBY BOBBY NM WK RADJ DLVR [address] 3/> 3 NATHANIEL NATHANIEL AREAS FT FT CUSTOM BOBBY BOBBY BLKING 11-19MEV RADJ DLVR [address] 3/> 3 NATHANIEL NATHANIEL AREAS FT FT CUSTOM BOBBY BOBBY BLKING 11-19MEV RADJ DLVR [address] 3/> 3 NATHANIEL NATHANIEL AREAS FT FT CUSTOM BOBBY BOBBY BLKING 11-19MEV THERAPEUT [address] IC 3 NATHANIEL NATHANIEL RADIOLOGY FT FT PORT BOBBY BOBBY IMAGES(S) RADIATION 84994 SHO BERKOWITZ PRA 3 TREATMENT MANAGEMEN T 5 TREATMENT S RADJ DLVR [address] 3/> 3 NATHANIEL NATHANIEL AREAS FT FT CUSTOM BOBBY BOBBY BLKING 11-19MEV CHEMOTX 95495 LEANDRA MOBLEY ADMN IV 3 N JORDYN COBB NFS TQ UP 1 HR SBST/DRUG RADJ DLVR [address] 3/> 3 NATHANIEL NATHANIEL AREAS FT FT CUSTOM BOBBY BOBBY BLKING 11-[address] G MEDICAL 3 NATHANIEL NATHANIEL PHYSICS FT [place] [address] LEANDRA MOBLEY INFUSION 3 N JORDYN N JORDYN THER PROPH ADDL SEQUENTIA L TO 1 HR COMPREHEN 40889 LEANDRA MOBLEY SIVE 3 N JORDYN N JORDYN METABOLIC PANEL BLOOD 98924 LEANDRA MOBLEY COUNT 3 N JORDYN N JORDYN COMPLETE AUTO&AUTO DIFRNTL WBC INJECTION J9265 LEANDRA MOBLEY 3 N JORDYN N JORDYN PACLITAXE L 30 MG INJECTION J2405 LEANDRA MOBLEY 3 N JORDYN N JORDYN ONDANSETR ON HCL PER 1 MG INJECTION J9045 LEANDRA MOBLEY 3 N JORDYN N JORDYN CARBOPLAT IN 50 MG CHEMOTX 40781 LEANDRA MOBLEY ADMN IV 3 N JORDYN [...] SONE SODIUM PHOSPHATE 1 MG RADJ DLVR [address] 3/> 3 NATHANIEL NATHANIEL AREAS FT FT CUSTOM BOBBY BOBBY BLKING 11-19MEV RADJ DLVR [address] 3/> 3 NATHANIEL NATHANIEL AREAS FT FT CUSTOM BOBBY BOBBY BLKING 11-19MEV RADJ DLVR [address] 3/> 3 NATHANIEL NATHANIEL AREAS FT FT CUSTOM BOBBY BOBBY BLKING 11-[address]ME[address] TH[address]UT [address] IC 3 NATHANIEL NATHANIEL RADIOLOGY FT FT PORT BOBBY BOBBY IMAGES(S) RADIATION 93861 SHO SHAH BERKOWITZ PRA 3 TREATMENT MANAGEMEN T 5 TREATMENT S RADJ DLVR [address] 3/> 3 NATHANIEL NATHANIEL AREAS FT FT CUSTOM BOBBY BOBBY BLKING 11-19MEV RADJ DLVR [address] 3/> 3 NATHANIEL NATHANIEL AREAS FT FT CUSTOM BOBBY BOBBY BLKING 11-19MEV CONTINUIN [address] [facility] 3 NATHANIEL CANTUTH PHYSICS FT FT CONSLTJ BOBBY ROSALES NM WK INJECTION J9045 LEANDRA MOBLEY 3 N JORDYN N JORDYN CARBOPLAT IN 50 MG COMPREHEN 42362 LEANDRA MOBLEY SIVE 3 N JORDYN N JORDYN METABOLIC PANEL BLOOD 03348 LEANDRA BARNESMAN COUNT 3 N JORDYN N JORDYN COMPLETE AUTO&AUTO DIFRNTL WBC PLETHYSMO 60915 BROWN-PUR BROWN-PUR GRAPHY 3 YEAR LAT YEAR LAT LUNG [place] [address] BROWN-PUR BROWN-PUR DIFFUSING 3 YEAR LAT YEAR LAT CAPACITY BRNCDILAT 34171 BROWN-PUR BROWN-PUR RSPSE 3 YEAR LAT YEAR LAT SPMTRY PRE&POST- BRNCDILAT ADMN RADIATION 54600 SHO SHAH BERKOWITZ PRA 3 TREATMENT MANAGEMEN T 5 [place] [address] LEANDRA MOBLEY INFUSION 3 N JORDYN N JORDYN THER PROPH ADDL SEQUENTIA L TO 1 HR CHEMOTX 19150 LEANDRA MOB[place] ADMN [place] 3 N JORDYN N JORDYN NFS TQ UP 1 HR SBST/DRUG BLOOD 33127 LEANDRA RODRIGUES BEL COUNT 3 N JORDYN COMPLETE AUTO&AUTO DIFRNTL WBC COMPREHEN 32351 LEANDRA MOBLEY SIVE 3 N JORDYN N JORDYN METABOLIC PANEL INJECTION J2405 LEANDRA BARNESMAN 3 N JORDYN N JORDYN ONDANSETR ON HCL PER 1 MG INJECTION J9265 LEANDRA BARNESMAN 3 N JORDYN N JORDYN PACLITAXE L 30 MG INJECTION J9045 LEANDRA BARNESMAN 3 N JORDYN N JORDYN CARBOPLAT IN 50 MG CHEMOTX 81175 LEANDRA MOBLEY ADMN IV 3 N JORDYN N JORDYN NFS TQ EA SEQL NFS TO 1 HR INJECTION J1200 LEANDRA BARNESMAN 3 N JORDYN N JORDYN DIPHENHYD RAMINE HCL UP TO 50 MG INJECTION J2780 LEANDRA KERRI 3 N JORDYN VELASQUEZ RANITIDIN E HYDROCHLO RIDE 25 MG INJECTION J1100 LEANDRA MOBLEY 3 N JORDYN N JORDYN DEXAMETHO SONE SODIUM PHOSPHATE 1 MG RADIATION 69076 SHO SHAH 3 TREATMENT MANAGEMEN T 5 [...] RAMINE HCL UP TO 50 MG CHEMOTX 94492 LEANDRA MOBLEY ADMN IV 3 N JORDYN COBB NFS TQ EA SEQL NFS TO 1 HR INJECTION J9265 LEANDRA MOBLEY 3 N JORDYN COBB PACLITAXE L 30 MG INJECTION J2405 LEANDRA MOBLEY 3 N JORDYN COBB ONDANSETR ON HCL PER 1 MG COMPREHEN 06353 LEANDRA MOBLEY SIVE 3 N JORDYN N JORDYN METABOLIC PANEL BLOOD 73235 LEANDRA OLSONKEMIE COUNT 3 N JORDYN JARRELL COMPLETE AUTO&[place] [address] LEANDRA MOBLEY INFUSION 3 N JORDYN COBB THER PROPH ADDL SEQUENTIA L TO 1 HR CHEMOTX 20765 LEANDRA MOB[place] ADMN IV 3 N JORDYN COBB NFS TQ UP 1 HR SBST/DRUG RADIATION 07040 SHO SHAH 3 TREATMENT MANAGEMEN T 5 [place] [address] LEANDRA MOBLEY INFUSION 3 N JORDYN N JORDYN THER PROPH ADDL SEQUENTIA L TO 1 HR CHEMOTX 09167 LE[place]DRA [place]MN IV 3 N JORDYN N JORDYN NFS TQ UP 1 HR / SBST/DRUG BLOOD 81722 LEANDRA MOBLEY COUNT 3 N JORDYN N JORDYN COMPLETE AUTO&AUTO DIFRNTL WBC COMPREHEN 35752 LEANDRA MOBLEY SIVE 3 N JORDYN N JORDYN METABOLIC PANEL INJECTION J9265 LEANDRA MOBLEY 3 N JORDYN N JORDYN PACLITAXE L 30 MG INJECTION J9045 LEANDRA MOBLEY 3 N JORDYN N JORDYN CARBOPLAT IN 50 MG CHEMOTX 39940 LEANDRA MOBLEY ADMN IV 3 N JORDYN [...] YOUR YOUR SM VOL 3 [facility] PNEUMAT NEBUL[facility]R DISPBL 3-D 57262 [facility] RADIOTHER 3 BRA BRA APY PLAN DOSE-VOLU ME HISTOGRAM S BASIC 69159 [facility] [place] [address] [facility] DEVICES 3 BRA BRA DESIGN & CONSTRUCT ION COMPLEX SPMTRY 25763 SRINIVASAN BAR SRINIVASAN BAR W/VC 3 EXPIRATOR Y JONATHAN W/WO MXML VOL VNTJ THERAPEUT 56181 SHO SHAH IC 3 RADIOLOGY TX PLANNING COMPLEX THER RAD 97456 SHO SHAH SIMULAJ-A [address] [place] [address] [facility] BERNICE HURST BERNICE GUIDANCE 3 RADI[place] [address] [facility] 3 [place] PET [place] PET [facility] BASE TO MID-THIGH FLUORODEO A9552 [facility] [place] XYGLUCOSE 3 [place] PET [place] PET F-18 FDG [facility] DX UP TO 45 MCI O2 CONC 1 E1390 KAMALJIT MARTINEZ [facility] 3 HOME HOME 85%/>02 MEDICAL MEDICAL CONC AT EQUIPME EQUIPWV PRS FLW RATE PRTBLE E0431 KAMALJIT MARI GASEOUS 3 HOME HOME O2 SYS MEDICAL MEDICAL RENT; EQUIPME EQUIPME FLWMTR HUMIDFR&M ASK BLOOD 51197 LEANDRA LEANDRA COUNT 3 N JORDYN N JORDYN COMPLETE AUTO&AUTO DIFRNTL WBC BLOOD 41492 K[facility]TA YOU COUNT 3 [facility] COMPLETE INC INC AUTO&AUTO DIFRNTL WBC COMPREHEN 09945 KENY[place]TA YOU SIVE 3 [facility] METABOLIC INC INC PANEL ADMN SET A7003 YOUR YOUR SM VOL 3 PHARMACY [facility] PNEUMAT NEBULIZR DISPBL O2 CONC 1 E1390 KAMALJIT MARTINEZ [facility] 3 HOME HOME 85%/>02 MEDICAL MEDICAL CONC AT EQUIPME EQUIPME PRS FLW RATE PRTBLE E0431 KAMALJIT MARI GASEOUS 3 HOME HOME O2 SYS MEDICAL MEDICAL RENT; EQUIPWV EQUIPWV FLWMTR HUMIDFR&M ASK CONSLTJ&R 33212 ERIKA JAMES EPRT 3 LOLA DAVILA SLIDES PREPARED ELSEWHERE BASIC 77274 KENY[facility]TA YOU METABOLIC 3 [facility] PANEL INC INC CALCIUM TOTAL BLOOD 85350 K[place] YOU COUNT 3 [facility] COMPLETE INC INC AUTO&AUTO DIFRNTL [facility] G0378 [facility] YOU OBSERVATI 3 [facility] ON INC INC SERVICE PER HOUR PRESSURIZ 46470 K[facility]TA YOU ED/NONPRE 3 [facility] SSURIZED INC INC INHALATIO N TREATMENT NONINVASI 63031 [facility] YOU VE 3 [facility] EAR/PULSE INC INC OXIMETRY SINGLE DETER OBSERVATI 39497 BARBRA BELLE ON CARE 3 JR CHRYSTAL JARRELL DISCHARGE MANAGEMEN T RADIOLOGI 50181 RUSS RUSS C EXAM 3 RHEA RHEA CHEST 2 VIEWS FRONTAL&L ATERAL RADIOLOGI 46359 RUSS RUSS C EXAM 3 RHEA RHEA CHEST 2 VIEWS FRONTAL&L ATERAL CT THORAX 85890 KENYATTA YOU W/O 3 [facility] CONTRAST INC INC MATERIAL NONINVASI 44071 [facility] YOU [facility] EAR/PULSE INC INC OXIMETRY SINGLE DETER PRESSURIZ 16255 K[facility]TA YOU ED/NONPRE [facility] SSURIZED [place] [address] [facility] YOU GUIDANCE [facility] NEEDLE INC INC PLACEMENT INITIAL 41707 BRYAN ADAMS OBSERVATI 3 MA[place] MAURO ON CARE/DAY 30 MINUTES ANESTHESI 54763 [facility] 3 ANESTH CHEST OF THE NEEDLE BLUE BIOPSY PLEURA CYTP FINE 27599 PICKLESIM PICKLESIM NDL 3 ER JR SANA ER JR SANA ASPIRATE IMMT CYTOHIST STD DX 1ST CYTP EVAL 11672 PICKLESIM PICKLESIM FINE 3 ER JR SANA ER JR SANA NEEDLE ASPIRATE INTERP & [place] [address] PICKLESIM PICKLESIM SURG 3 ER JR SANA ER JR SANA PATHOLOGY GROSS&DIONNA ROSCOPIC EXAM FINE 29768 [facility] YOU NEEDLE [facility] ASPIRATIO INC INC N WITH IMAGING GUIDANCE PROTHROMB 29956 [facility] YOU IN TIME [facility] INC INC THROMBOPL 43720 [facility] YOU ASTIN [facility] TIME INC INC PARTIAL PLASMA/WH OLE BLOOD BLOOD 85226 K[facility] YOU COUNT [facility] COMPLETE INC INC AUTO&AUTO DIFRNTL [facility]147 [facility]GE [facility] JR CHRYSTAL SANTOYO CHRYSTAL DAY MANAGEMEN T 30 MIN/< SBSQ 68731 [facility] 3 JR CHRYSTAL SANTOYO CHRYSTAL CARE/DAY 25 MINUTES RADIOLOGI 11753 RUSS RUSS C EXAM 3 RHEA RHEA CHEST 2 VIEWS FRONTAL&L ATERAL ECG 69117 EMILY DIAZ JR ROUTINE 3 DWI DWI ECG W/LEAST 12 LDS I&R ONLY NONINVASI 63250 [facility] 3 MA[place]O MAURO EAR/PULSE OXIMETRY SINGLE DETER INITIAL 39286 [facility] 3 MAURO MAURO CARE/[place] [address] [place] [address] RUSS RUSS ANGIOGRAP 3 RHEA RHEA HY [...] [facility] PNEUMAT NEBULIZR DISPBL RADIOLOGI 59505 [place] RUSS C 2 MEDICAL RHEA EXAMINATI IMAGING ON CHEST ASS SINGLE VIEW FRONTAL AMB A0427 [facility] SERVICE 2 AMBULANCE AMBULANCE ALS SERVICE SERVICE EMERGENCY TRANSPORT LEVEL 1 GROUND A0425 [facility]UL[facility] PER SERVICE SERVICE STATUTE MILE BRNCDILAT 33235 BARBRA BELLE RSPSE 2 JR CHRYSTAL JR CHRYSTAL SPMTRY PRE&POST- BRNCDILAT ADMN BLOOD 24022 K[facility] YOU GASES ANY 2 [facility] INC INC COMBINATI ON PH PCO2 PO2 CO2 HCO3 GAS 11928 BARBRA BELLE DILUT/WAS 2 JR CHRYSTAL JR CHRYSTAL HOUT LUNG VOL W/WO DISTRIB VENT&V PRTBLE E0431 KAMALJIT MARI GASEOUS 2 HOME HOME O2 SYS MEDICAL MEDICAL RENT; EQUIPME EQUIPME FLWMTR HUMIDFR&M ASK O2 CONC 1 E1390 KAMALJIT KAMALJIT DEL PORT 2 HOME HOME 85%/>02 MEDICAL MEDICAL CONC AT EQUIPME EQUIPME PRS FLW RATE CT THORAX 45715 RUSS RUSS 2 RHEA RHEA W/CONTRAS T MATERIAL LOCM Q9967 KENY[place]TA YOU [phone] [facility] MG/ML INC INC IODINE CONCENTRA TION PER ML 3D 54732 K[place]TA YOU RENDERING 2 [facility] INC INC W/INTERP& POSTPROC DIFF WORK STATION LIPID 14740 K[facility]TA YOU PANEL 2 [facility] INC INC RADIOLOGI 66570 KENYATTA YOU C EXAM 2 [facility] CHEST 2 INC INC VIEWS FRONTAL&L ATERAL BLOOD 52215 K[place]TA YOU COUNT 2 [facility] COMPLETE INC INC AUTO&AUTO DIFRNTL WBC COMPREHEN 96229 K[place]TA YOU SIVE 2 [facility] [place] [address] KENY[place]TA YOU THYROID 2 [facility] STIMULATI INC INC NG HORMONE TSH CYANOCOBA 86884 K[place]TA YOU RAMBO 2 [facility] VITAMIN INC INC B-12 25 86870 K[place] YOU HYDROXY 2 [facility] INCLUDES INC INC FRACTIONS IF PERFORMED O2 CONC 1 E1390 KAMALJITRACHEL MARI DEL PORT 2 HOME HOME 85%/>02 MEDICAL MEDICAL CONC AT EQUIPME EQUIPME [facility] FLW RATE PRTBLE E0431 KAMALJIT MARI GASEOUS 2 HOME HOME O2 SYS MEDICAL MEDICAL RENT; EQUIPME EQUIPME FLWMTR HUMIDFR&M ASK ADMN SET A7003 YOUR YOUR SM VOL 2 PHARMACY PHARMACY NONFILTR [facility] PNEUMAT NEBULIZR DISPBL O2 CONC 1 [...] YOUR YOUR SM VOL 2 PHARMACY PHARMAC[facility] PNEUMAT NEBULIZR DISPBL 25 45601 K[place] YOU HYDROXY 2 [facility] INCLUDES INC INC FRACTIONS IF PERFORMED CYANOCOBA 46537 K[place]TA YOU RAMBO 2 [facility] VITAMIN INC INC B-12 [place] [address] KENY[place]TA YOU THYROID 2 [facility] STIMULATI INC INC NG HORMONE TSH COMPREHEN 42350 [facility] YOU SIVE 2 [facility] METABOLIC INC INC PANEL BLOOD 19130 K[place] YOU COUNT 2 [facility] COMPLETE INC INC AUTO&AUTO DIFRNTL WBC LIPID 05349 K[place] YOU PANEL 2 [facility] HOS[facility] MEM [...] YOUR SM VOL 2 PHARMACY PHARMACY NONFILTR [facility] PNEUMAT NEBULIZR DISP HOSPITAL 06787 [facility] 2 [facility] DAY INTERNAL MANAGEMEN MED T 30 MIN/< SBSQ [address] CARE/DAY INTERNAL 25 MED MINUTES MYOCARDIA 12985 [facility] 2 [facility] MULTIPLE CARDIOLOG STUDIES Y CLINIC SBSQ [address] CARE/DAY INTERNAL 25 MED MINUTES SBSQ [address] CARE/DAY INTERNAL 25 MED MINUTES CRITICAL 40399 NILSA [facility] 2 EMERGENCY ILL/INJUR SERVICES ED PATIENT INIT 30-74 MIN GROUND A0425 [facility] 2 AMBULANCE AMBULANCE PER SERVICE SERVICE STATUTE MILE INITIAL [address] CARE/DAY INTERNAL 50 MED MINUTES RADIOLOGI 90032 [place] R[facility] C 2 MEDICAL RHEA EXAMINATI IMAGING ON CHEST ASS SINGLE VIEW FRONTAL AMB A0427 [facility] SERVICE 2 AMBULANCE AMBULANCE ALS SERVICE SERVICE EMERGENCY TRANSPORT LEVEL 1 PRTBLE E0431 KAMALJIT MARI GASEOUS 2 HOME HOME O2 SYS MEDICAL MEDICAL RENT; EQUIPME EQUIPME FLWMTR HUMIDFR&M ASK O2 CONC 1 E1390 KAMALJIT MARI [place] PORT 2 HOME HOME 85%/>02 MEDICAL MEDICAL CONC AT EQUIPME EQUIPME [facility] FLW RATE ADMN SET A7003 YOUR YOUR SM VOL 2 PHARMACY PHARMACY [facility] PNEUMAT NEBULIZR DISPBL NEBULIZER E0570 KAMALJIT MARI WITH 2 HOME HOME COMPRESSO MEDICAL MEDICAL R EQUIPME EQUIPME BASIC 18179 [place] YOU METABOLIC 2 [facility] PANEL INC INC CALCIUM TOTAL BLOOD 39138 K[place] YOU COUNT 2 [facility] COMPLETE INC INC AUTO&AUTO DIFRNTL WBC PRTBLE E0431 KAMALJIT MARI GASEOUS 2 HOME HOME O2 SYS MEDICAL MEDICAL RENT; EQUIPME EQUIPME FLWMTR HUMIDFR&M ASK O2 CONC 1 E1390 KAMALJIT MARI DEL PORT 2 HOME HOME 85%/>02 MEDICAL MEDICAL CONC AT EQUIPME EQUIPME [facility] 35740 [facility] 2 [facility]AL [facility] DAY MANAGEMEN T 30 MIN/< SBSQ [address] [place] CARE/DAY INTERNAL 25 MED MINUTES SBSQ [address] [place] CARE/DAY INTERNAL 25 MED MINUTES SBSQ 76884 [facility] 2 [facility] CARE/DAY 25 MINUTES SBSQ 67850 [facility] 2 [facility] CARE/DAY 35 MINUTES ECG 62323 [facility] ROUTINE 2 DIONNA DIONNA ECG W/LEAST 12 LDS I&R ONLY CRITICAL 90086 [facility] 2 DIONNA DIONNA ILL/INJUR ED PATIENT INIT 30-74 MIN GROUND A0425 [facility] AM[facility]ULANCE PER SERVICE SERVICE STATUTE MILE AMB A0427 [facility] SERVICE 2 AMBULANCE AMBULANCE ALS SERVICE SERVICE EMERGENCY TRANSPORT LEVEL 1 INITIAL 34953 [facility] 2 JR CHRYSTAL JR CHRYSTAL CARE/DAY 70 MINUTES INSERTION 9604 KENY[place]TA YOU OF 2 [facility] ENDOTRACH INC INC EAL TUBE CONT 9671 K[place] YOU INVASIVE 2 [facility] MECH VENT INC INC < 96 CONSECUTI VE HOURS INTUBATIO 80595 [facility] N 2 DIONNA DIONNA ENDOTRACH EAL EMERGENCY PROCEDURE O2 CONC 1 E1390 KAMALJIT KAMALJIT DEL PORT 1 HOME HOME 85%/>02 MEDICAL MEDICAL CONC AT EQUIPME EQUIPME PRS FLW RATE PRTBLE E0431 KAMALJIT KAMALJIT GASEOUS 1 HOME HOME O2 SYS MEDICAL MEDICAL RENT; EQUIPME EQUIPME FLWMTR HUMIDFR&M ASK RADIOLOGI 44515 RUSS RUSS C 1 RHEA RHEA EXAMINATI ON CHEST SINGLE VIEW FRONTAL ECG 99441 [facility] ROUTINE 1 DIONNA DIONNA ECG W/LEAST 12 LDS I&R ONLY PRTBLE E0431 KAMALJIT KAMALJIT GASEOUS 1 HOME HOME O2 SYS MEDICAL MEDICAL RENT; EQUIPME EQUIPME FLWMTR HUMIDFR&M ASK O2 CONC 1 E1390 KAMALJIT KAMALJIT DEL PORT 1 HOME HOME 85%/>02 MEDICAL MEDICAL CONC AT EQUIPME EQUIPME PR[facility] FLW RATE BASIC 92113 KENYATTA YOU METABOLIC 1 [facility] PANEL INC INC CALCIUM TOTAL ECG 48584 KENY[place]TA YUO ROUTINE 1 [facility] ECG INC INC W/LEAST 12 LDS TRCG ONLY W/O I&R BLOOD 69066 K[facility] YOU COUNT 1 [facility] COMPLETE INC INC AUTO&AUTO DIFRNTL WBC CULTURE 88614 KENY[place]TA YUO BACTERIAL 1 [facility] BLOOD INC INC AEROBIC W/ID ISOLATES ECG 39139 KENY[place]TA CHRISTENSENMIMercedez ROUTINE 1 [facility] ECG HOSPITAL W/LEAST P 12 LDS I&R ONLY RADIOLOGI 31043 [facility] EXAM 1 MEDICAL RHEA CHEST 2 IMAGING VIEWS ASS FRONTAL&L ATERAL PRESSURIZ 12313 KENYATTA YOU ED/NONPRE 1 [facility] HOS[facility] MEM [...] SERVICE SERVICE LIFE SUSTAININ G SITUATION RADIOLOGI 86453 [facility] 1 MEDICAL RHEA EXAMINATI IMAGING ON CHEST ASS SINGLE VIEW FRONTAL AMB A0427 [facility] SERVICE 1 AMBULANCE AMBULANCE ALS SERVICE SERVICE EMERGENCY TRANSPORT LEVEL 1 GROUND A0425 [facility] MILEAGE 1 AMBULANCE AMBULANCE PER SERVICE SERVICE STATUTE MILE ALS A0398 [facility] ROUTINE 1 AMBULANCE AMBULANCE DISPOSABL SERVICE SERVICE E SUPPLIES ECG 34591 NILSA SILVERIO ROUTINE 1 EMERGENCY [facility] ECG SERVICES W/LEAST 12 LDS I&R ONLY [...] MEDICAL RENT; EQUIPME EQUIPME FLWMTR HUMIDFR&M [facility] [address] [facility] CHR DISCHARGE 1 MED CTR MANAGEMEN T > 30 MIN SBSQ 63106 [facility] 1 NATHANIEL CARE/DAY MED CTR 25 MINUTES SBSQ 09887 [facility] 1 NATHANIEL CARE/DAY MED CTR [address] [facility] ROUTINE 1 NATHANIEL GAR ECG W/LEAST PHYSICIAN 12 LDS S I&R ONLY ECG [address] [facility] ROUTINE 1 NATHANIEL GAR ECG W/LEAST PHYSICIAN 12 LDS S I&R ONLY ECHO 37355 [facility] R-T 1 NATHANIEL TORIBIO 2D W/WOM-MOD PHYSICIAN E COMPL S SPEC&COLR D INITIAL 26437 [facility] 1 NATHANIEL CARE/DAY MED CTR 70 MINUTES AMB A0427 FIRE DEPT FIRE DEPT SERVICE 1 OF OF [facility] EMERGENCY DAYTO DAYTO TRANSPORT LEVEL 1 ECG 61269 DIAGNOSTI BOB ROUTINE 1 C GAR ECG CARDIOLOG W/LEAST ISTS INC 12 LDS I&R ONLY RADIOLOGI 66153 RADIOLOGY VIANEY C EXAM 1 TUS CHEST 2 ASSOCIATE VIEWS S PSC FRONTAL&L ATERAL ALS A0398 FIRE DEPT FIRE DEPT ROUTINE 1 OF OF DISPOSABL NAFISA SKELTON E DAYTO DAYTO SUPPLIES GROUND A0425 FIRE DEPT FIRE DEPT MILEAGE 1 OF OF PER NAFISA SKELTON STATUTE DAYTO DAYTO MILE [facility] A0422 FIRE DEPT FIRE DEPT OXYGEN&O2 1 [facility] SK[facility]TON LIFE DAYTO DAYTO SUSTAININ G SITUATION O2 CONC 1 E1390 KAMALJIT MARI DEL PORT 1 HOME MED HOME MED 85%/>02 EQUIP. L EQUIP. L CONC AT [facility] FLW RATE PRTBLE E0431 KAMALJIT MARI GASEOUS 1 HOME MED HOME MED O2 SYS EQUIP. L EQUIP. L RENT; GAW[facility] HUMIDFR&M ASK PRTBLE E0431 KAMALJIT MARI GASEOUS 1 HOME MED HOME MED O2 SYS EQUIP. L EQUIP. L RENT; GAWMTR HUMIDFR&M ASK O2 CONC 1 E1390 KAMALJIT MARI DEL PORT 1 HOME MED HOME MED 85%/>02 EQUIP. L EQUIP. L CONC AT [facility] FLW RATE O2 CONC 1 E1390 KAMALJIT MARI DEL PORT 1 HOME MED HOME MED 85%/>02 EQUIP. L EQUIP. L CONC AT [facility] FLW RATE PRTBLE E0431 KAMALJIT MARI GASEOUS 1 HOME MED HOME MED O2 SYS EQUIP. L EQUIP. L RENT; FLWMTR HUMIDFR&M ASK BLOOD [address] COUNT 1 NATHANIEL ARMSTRONG COMPLETE FT FT AUTO&AUTO [place] [address] TROPONIN 1 NATHANIEL ARMSTRONG QUANTITAT FT FT CARLOS BOBBY ROSALES AMB A0427 FIRE DEPT FIRE DEPT SERVICE 1 OF OF ALS NAFISA SKELTON EMERGENCY DAYTO DAYTO TRANSPORT LEVEL [address] IC 1 NATHANIEL ARMSTRONG PEPTIDE FT FT BOBBY BOBBY THER [address] PROPH/DX 1 NATHANIEL ARMSTRONG NJX IV FT FT PUSH BOBBY ROSALES SINGLE/1S T SBST/DRUG RADIOLOGI [address] C 1 NATHANIEL ARMSTRONG EXAMINATI FT FT ON CHEST BOBBY ROSALES SINGLE VIEW FRONTAL GROUND A0425 FIRE DEPT FIRE DEPT MILEAGE 1 OF OF PER NAFISA MAYAE STATUTE DAYTO DAYTO MILE ALS A0398 FIRE DEPT FIRE DEPT ROUTINE 1 OF OF DISPOSABL [place] TARIQUUE E DAYTO DAYTO SUPPLIES THER [address] PROPH/DX 1 NATHANIELANDRÉS ARMSTRONG NJX EA FT FT SEQL IV BOBBY ROSALES PUSH SBST/DRUG FAC THERAPEUT [address] IC 1 NATHANIEL NATHANIEL INJECTION FT FT IV PUSH BOBBY ROSALES EACH NEW DRUG ECG 07139 DIAGNOSMYRTLE WHITING ROUTINE 1 C PEG ECG CARDIOLOG W/LEAST ISTS INC 12 LDS I&R ONLY AMB A0422 FIRE DEPT FIRE DEPT OXYGEN&O2 1 OF OF SUPPLIES NAFISA SKELTON LIFE DAYTO DAYTO SUSTAININ G SITUATION ECG [address] ROUTINE 1 NATHANIEL CANTUTH ECG FT FT W/LEAST BOBBY BOBBY 12 [facility] TRCG ONLY W/O I&R BASIC [address] METABOLIC 1 NATHANIEL CANTUTH PANEL FT FT CALCIUM BOBBY ROSALES TOTAL O2 CONC 1 E1390 [facility] 1 HOME MED HOME MED 85%/>02 EQUIP. L EQUIP. L CONC AT [facility] FLW RATE PRTBLE E0431 KAMALJIT KAMALJIT GASEOUS 1 HOME MED HOME MED O2 SYS EQUIP. L EQUIP. L RENT; [facility] HUMIDFR&M ASK PRTBLE E0431 KAMALJIT KAMALJIT GASEOUS 1 HOME MED HOME MED O2 SYS EQUIP. L EQUIP. L RENT; [facility] HUMIDFR&M ASK O2 CONC 1 E1390 [facility] 1 HOME MED HOME MED 85%/>02 EQUIP. L EQUIP. L CONC AT [facility] FLW RATE O2 CONC 1 E1390 [place] [address] HOME MED HOME MED 85%/>02 EQUIP. L EQUIP. L CONC AT [facility] FLW RATE PRTBLE E0431 KAMALJIT KAMALJIT GASEOUS 1 HOME MED HOME MED O2 SYS EQUIP. L EQUIP. L RENT; [facility] HUMIDFR&M [facility] [address] [facility] DISCHARGE 1 [facility] DAY MED CTR MANAGEMEN T 30 MIN/< SBSQ 19082 [facility] 1 [facility] CARE/DAY MED CTR 25 MINUTES ECG 14156 DIAGNOSTI MCDANNOLD ROUTINE 1 C PEG ECG CARDIOLOG W/LEAST ISTS INC 12 LDS I&R ONLY ECG 67354 DIAGNOSTI MCDANNOLD ROUTINE 1 C PEG ECG CARDIOLOG W/LEAST ISTS INC 12 LDS I&R ONLY ALS A0398 FIRE DEPT FIRE DEPT ROUTINE 1 OF OF DISPOSABL FEROZEVUUE BELLEVUUE E DAYTO DAYTO SUPPLIES GROUND A0425 FIRE DEPT FIRE DEPT MILEAGE 1 OF [place] [address] RADIOLOGY DEENAER ANGIOGRAP 1 MICAH HY CHEST ASSOCIATE W/CONTRAS S PSC T/NONCONT RAST RADIOLOGI 75516 RADIOLOGY SCHMITTER C 1 MICAH EXAMINATI ASSOCIATE ON CHEST S PSC [place] FRONTAL AMB A0427 FIRE DEPT FIRE DEPT SERVICE 1 OF OF JAIDEN SKEL[place] EMERGENCY DAYTO DAYTO TRANSPORT LEVEL 1 [facility] E0431 KAMALJIT MARI GASEOUS 0 HOME MED HOME MED O2 SYS EQUIP. L EQUIP. L RENT; [facility] HUMIDFR&M ASK O2 CONC 1 E1390 [place]JIT MARI [place] 0 HOME MED HOME MED 85%/>02 EQUIP. L EQUIP. L CONC AT [facility] [address] [facility] DISCHARGE 0 NATHANIEL RAJ DAY MED CTR MANAGEMEN T > 30 MIN SBS 31039 [facility] 0 [facility] CARE/DAY MED CTR 25 MINUTES [facility] [address] [facility] 0 [facility] CARE/DAY MED CTR 25 MINUTES CRITICAL 03483 EMERGENCY SEJAL CARE 0 CARE LISA ILL/INJUR PHYS ED [facility] PATIENT INIT 30-74 MIN ECG 41892 DEJON RO NIV ROUTINE 0 C ECG CARDIOLOG W/LEAST ISTS INC 12 LDS I&R ONLY GROUND A0425 FIRE DEPT FIRE DEPT MILEAGE 0 OF OF [place] STATUTE DAYTO DAYTO MILE ALS A0398 FIRE DEPT FIRE DEPT ROUTINE 0 OF OF DISPOSSOFYA SKELTON E DAYTO DAYTO SUPPLIES INITIAL 71754 [facility] 0 NATHANIEL RAJ CARE/DAY MED CTR 50 MINUTES AMB A0422 FIRE DEPT FIRE DEPT OXYGEN&O2 0 OF OF SUPPLIES NAFISA SKELTON LIFE DAYTO DAYTO SUSTAININ G SITUATION AMB A0427 FIRE DEPT FIRE DEPT SERVICE 0 OF OF ALS NAFISA SKEL[place] EMERGENCY DAYTO DAYTO TRANSPORT LEVEL 1 RADIOLOGI 70891 RADIOLOGY NEILS LEO C 0 EXAMINATI ASSOCIATE ON CHEST S PSC [place] FRONTAL PRTBLE E0431 KAMALJIT KAMALJIT GASEOUS 0 HOME MED HOME MED O2 SYS EQUIP. L EQUIP. L RENT; [facility] HUMIDFR&M ASK O2 CONC 1 E1390 KAMALJIT KAMALJIT [place] 0 HOME MED HOME MED 85%/>02 EQUIP. L EQUIP. L CONC AT [facility] [address] [facility] DISCHARGE 0 NATHANIEL DAY MED CTR MANAGEMEN T > 30 MIN SBSQ 44296 [facility] 0 NATHANIEL CARE/DAY MED CTR 25 MINUTES RADIOLOGI 05600 RADIOLOGY VIANEY C EXAM 0 TUS CHEST 2 ASSOCIATE VIEWS S PSC FRONTAL&[place] [address] RADIOLOGY RANJIT LIMITED/L 0 MAURO OCALIZED ASSOCIATE FOLLOW UP S PSC STUDY INITIAL 41296 [facility] 0 NATHANIEL CARE/DAY MED CTR 70 MINUTES RADIOLOGI 15558 RADIOLOGY SURESH BYR C 0 EXAMINATI ASSOCIATE [...] NAFISA SKELTON STATUTE DAYTO DAYTO MILE CRITICAL 61967 EMERGENCY VEST QUIANA CARE 0 CARE ILL/INJUR PHYS ED [facility]THER[facility] PATIENT INIT 30-74 MIN ECG 66684 [address] RO NIV ROUTINE 0 C ECG CARDIOLOG W/LEAST ISTS INC 12 LDS I&R ONLY PRTBLE E0431 KAMALJIT KAMALJIT GASEOUS 0 HOME MED HOME MED O2 SYS EQUIP. L EQUIP. L RENT; [facility] HUMIDFR&M ASK O2 CONC 1 E1390 K[place]IT AKMALJIT [place] 0 HOME MED HOME MED 85%/>02 EQUIP. L EQUIP. L CONC AT [facility] FLW RATE O2 CONC 1 E1390 KAMALJIT KAMALJIT [place] 0 HOME MED HOME MED 85%/>02 EQUIP. L EQUIP. L CONC AT [facility] FLW RATE PRTBLE E0431 KAMALJIT KAMALJIT GASEOUS 0 HOME MED HOME MED O2 SYS EQUIP. L EQUIP. L RENT; [facility] HUMIDFR&M ASK PRTBLE E0431 KAMALJIT KAMALJIT GASEOUS 0 HOME MED HOME MED O2 SYS EQUIP. L EQUIP. L RENT; [facility] HUMIDFR&M ASK O2 CONC 1 E1390 KAM[place]JIT KAMALJIT [place] 0 HOME MED HOME MED 85%/>02 EQUIP. L EQUIP. L CONC AT [facility] FLW RATE O2 CONC 1 E1390 K[place]IT KAMALJIT [place] 0 HOME MED HOME MED 85%/>02 EQUIP. EQUIP. CONC AT [facility] FLW RATE PRTBLE E0431 KAMALJIT KAMALJIT GASEOUS 0 HOME MED HOME MED O2 SYS EQUIP. EQUIP. RENT; [facility] HUMIDFR&M ASK PRTBLE E0431 KAMALJIT KAMALJIT GASEOUS 0 HOME MED HOME MED O2 SYS EQUIP. EQUIP. RENT; [facility] HUMIDFR&M ASK O2 CONC 1 E1390 KAMALJIT KAMALJIT DEL PORT 0 HOME MED HOME MED 85%/>02 EQUIP. EQUIP. CONC AT [facility] FLW RATE O2 CONC 1 E1390 KAMALJIT KAMALJIT DEL [place] 0 HOME MED HOME MED 85%/>02 EQUIP. EQUIP. [facility]C AT [facility] FLW RATE PRTBLE E0431 KAMALJIT KAMALJIT GASEOUS 0 HOME MED HOME MED O2 SYS EQUIP. EQUIP. RENT; [facility] HUMIDFR&M ASK PRTBLE E0431 KAMALJIT SEVILLARELL GASEOUS 0 HOME MED HOME MED O2 SYS EQUIP. EQUIP. RENT; [facility] HUMIDFR&M ASK O2 CONC 1 E1390 KAMALJIT MARI DEL PORT 0 HOME MED HOME MED 85%/>02 EQUIP. EQUIP. CONC AT [facility] FLW RATE O2 CONC 1 E1390 KAMALJIT SEVILLARELL DEL PORT 0 HOME MED HOME MED 85%/>02 EQUIP. EQUIP. [facility]C AT [facility] FLW RATE PRTBLE E0431 KAMALJIT SEVILLARELL GASEOUS 0 HOME MED HOME MED O2 SYS EQUIP. EQUIP. RENT; [facility] HUMIDFR&M ASK CATARACT 03447 [facility], REMOVAL 0 I EYE [facility] ANESTHESI 62869 INDEPENDE HIPOLITO, A EYE 0 NT ALAM LENS ANESTHESI SURGERY OLOGIST ANESTHESI 82983 INDEPENDE JAMAAL, A EYE 0 NT FAVIOLA LENS ANESTHESI J SURGERY OLOGIST CATARACT 45997 [facility], REMOVAL 0 I EYE [facility] OPH BMTRY 48501 [facility], PRTL 0 I EYE [facility] INTRFRMTR Y IO LENS PWR JAIRON OPHTH 72445 [facility] 9 I EYE CANDY Shea &NIMESH ORLANDO COMPRHNSV ESTAB PT 1/> HOSPITAL 55600 PATIENT [facility] DISCHARGE 9 FIRST CASSANDRA G DAY PHYS MANAGEMEN T 30 MIN/< INITIAL 44591 PATIENT [facility] HOSPITAL 9 FIRST CASSANDRA G CARE/DAY PHYS 70 MINUTES RADIOLOGI 96546 RADIOLOGY Olegario MARTINEZ 9 ROBERT Shea EXAMINATI ASSOCIATE ON CHEST S PSC SINGLE VIEW FRONTAL ECG 76340 DIAGNOSCHUCKY PACE 9 C NIVA ECG CARDIOLOG W/LEAST ISTS INC 12 LDS I&R ONLY RHYTHM 83693 EMERGENCY HERFEL, ECG 1-3 9 CARE AGUILAR U LEADS PHYS INTERPRET [facility] 9[address]70 [facility]IENT [facility], [facility] 9 FIRST [place] C DAY PHYS MANAGEMEN T 30 MIN/< RADIOLOGI 00536 RADIOLOGY Olegario SLAUGHTER EXAM 9 KO H CHEST 2 ASSOCIATE VIEWS S PSC FRONTAL&L ATERAL SBSQ 10487 PATIENT [facility] 9 FIRST [place] C CARE/DAY PHYS 25 MINUTES SBSQ 42017 PATIENT [facility] 9 FIRST [place] C CARE/DAY PHYS 25 MINUTES SBSQ 93577 PATIENT [facility] 9 FIRST [place] C CARE/DAY PHYS 25 MINUTES SBSQ 68123 PATIENT [facility] 9 FIRST [place] C CARE/DAY PHYS 25 MINUTES INITIAL 84916 PATIENT [facility] 9 [place] CARE/DAY PHYS 50 MINUTES AMBULANCE A0429 [employer] SERVICE 9 CO FIRE CO FIRE BLS PROTECTIO PROTECTIO EMERGENCY N DIST #1 N DIST #1 TRANSPORT GROUND A0425 [employer] MILEAGE 9 CO FIRE CO FIRE PER PROTECTIO PROTECTIO STATUTE N DIST #1 N DIST #1 MILE ECG 96039 DIAGNOSTI JAYJAY, ROUTINE 9 C NIVA ECG CARDIOLOG W/LEAST ISTS INC 12 LDS I&R ONLY RADIOLOGI 07358 RADIOLOGY Olegario FOX 9 PALLAVI R EXAMINATI ASSOCIATE ON CHEST S PSC SINGLE VIEW FRONTAL AMB A0422 [employer] OXYGEN&O2 9 CO FIRE CO FIRE SUPPLIES PROTECTIO PROTECTIO LIFE N DIST #1 N DIST #1 [facility] 20059 PATIENT [facility], DISCHARGE 9 [place] DAY PHYS MANAGEMEN T 30 MIN/< SBSQ 88981 PATIENT [facility] 9 [place] CARE/DAY PHYS 25 MINUTES SBSQ 85650 PATIENT [facility] 9 FIRST [place] C CARE/DAY PHYS 25 MINUTES SBSQ 80162 PATIENT [facility] 9 [place] CARE/DAY PHYS 25 MINUTES ECG 09553 DIAGNOSTI SUKUMAROLD ROUTINE 9 C , TATE J ECG CARDIOLOG W/LEAST ISTS INC 12 LDS I&R ONLY ECG 66218 DEJON WHITING ROUTINE 9 C , TATE J ECG CARDIOLOG W/LEAST ISTS INC 12 LDS I&R ONLY RADIOLOGI 59220 RADIOLOGY Olegario STOEN EXAM 9 CHEST 2 ASSOCIATE NATHANIEL BLACKMON S PSC A FRONTAL&L ATERAL GROUND A0425 [employer] MILEAGE 9 CO FIRE CO FIRE PER PROTECTIO PROTECTIO STATUTE N DIST #1 N DIST #1 MILE ALS A0398 [facility] ROUTINE 9 CO FIRE CO FIRE DISPOSABL PROTECTIO PROTECTIO E N DIST #1 N DIST #1 SUPPLIES INITIAL 02016 PATIENT [facility] 9 [place] CARE/DAY PHYS 50 MINUTES AMB A0427 [facility] SERVICE 9 CO FIRE CO FIRE ALS PROTECTIO PROTECTIO EMERGENCY N DIST #1 N DIST #1 TRANSPORT LEVEL 1 RHYTHM 57752 EMERGENCY JUAN ANTONIO, ECG 1-3 9 CARE MIMI D LEADS PHYS INTERPRET [facility] [place] [facility] 75491 JIMBO ALEGRIA, MEDICAL 9 VISION CARLA M XM&EVAL COMPRE NEW PT 1/> VST BASIC 27702 [facility] YOU METABOLIC 9 [facility] PANEL INC INC CALCIUM TOTAL LIPID 30152 [facility] YOU PANEL 9 [facility] INC INC HEPATIC 06597 [facility] YOU FUNCTION 9 [facility] PANEL INC INC HOSPITAL 76076 [facility] DISCHARGE 9 JR, J V JR, J V DAY MANAGEMEN T 30 MIN/< SBSQ 75257 [facility] 9 JR, J V JR, J V CARE/DAY 15 MINUTES SBSQ 54131 [facility] 9 JR, J V JR, J V CARE/DAY [address] [facility] MILEAGE 9 AMBULANCE AMBULANCE PER SERVICE SERVICE STATUTE MILE INITIAL 08820 [facility] 9 JR, J V JR, J V CARE/DAY 50 MINUTES ECG 37341 KENYATTA ADAMS, ROUTINE 9 [facility] W/LEAST PROF SERV 12 LDS I&R ONLY RADIOLOGI 30047 [place] RUSS 9 MEDICAL CAROL EXAMINATI IMAGING ON CHEST ASSOCIATE SINGLE S VIEW FRONTAL AMB A0427 [facility] CERVANT[facility] SERVICE 9 AMBULANCE AMBULANCE ALS SERVICE SERVICE EMERGENCY TRANSPORT LEVEL 1 AMB A0422 [facility] OXYGEN&O2 9 AMBULANCE AMBULANCE SUPPLIES SERVICE SERVICE LIFE SUSTAININ G SITUATION OBSERVATI 13826 Claudia MITCHELL ON CARE 9 LUIS ALBERTO Melvin DISCHARGE PSC MANAGEMEN T INITIAL 11980 Claudia MITCHELL OBSERVATI 9 LUIS ALBERTO Melvin ON PSC CARE/DAY 50 MINUTES GROUND A0425 [facility] MILEAGE 9 AMBULANCE AMBULANCE PER SERVICE SERVICE STATUTE MILE ECG 82908 [facility] BELLE ROUTINE [address] [facility] Watson W/DI PROF SERV 12 LDS I&R ONLY AMB A0422 [facility] CERVANTES OXYGEN&O2 9 AMBULANCE AMBULANCE SUPPLIES SERVICE SERVICE LIFE SUSTAININ G SITUATION AMB A0427 [facility] CERV[facility] SERVICE 9 AMBULANCE AMBULANCE ALS SERVICE SERVICE EMERGENCY TRANSPORT LEVEL 1 RADIOLOGI 60004 [place] RUSS 9 MEDICAL CAROL EXAMINATI IMAGING ON CHEST ASSOCIATE SINGLE S VIEW FRONTAL AMB A0427 [facility] CERV[facility] SERVICE 9 AMBULANCE AMBULANCE ALS SERVICE SERVICE EMERGENCY TRANSPORT LEVEL 1 AMB A0422 [facility] CERVANTES OXYGEN&O2 9 AMBULANCE AMBULANCE SUPPLIES SERVICE SERVICE LIFE SUSTAININ G SITUATION BLOOD 86046 [facility] YOU COUNT 9 [facility] COMPLETE INC INC AUTO&AUTO DIFRNTL WBC COMPREHEN 82971 [facility] YOU SIVE 9 [facility] METABOLIC INC INC PANEL RADIOLOGI 95854 [place] Olegario BHANDARI EXAM 9 MEDICAL GEORGE P CHEST 2 IMAGING VIEWS ASSOCIATE FRONTAL&L S ATERAL BLOOD 31407 [facility] YOU GASES ANY 9 [facility] INC INC COMBINATI ON PH PCO2 PO2 CO2 HCO3 GROUND A0425 [facility] CERVANTES MILEAGE 9 AMBULANCE AMBULANCE PER SERVICE SERVICE STATUTE MILE PRESSURIZ 90867 [facility] YOU ED/NONPRE 8 [facility] SSURIZED INC INC INHALATIO N TREATMENT ECG 14165 KENYATTA ADAMS, ROUTINE 8 [facility] W/LEAST PROF SERV 12 LDS I&R ONLY ECG 33030 KEN[facility]TA YOU ROUTINE 8 [facility] ECG INC INC W/LEAST 12 LDS TRCG ONLY W/O I&R IV NFS 27558 [facility] YOU THER 8 [facility] PROPH/DX INC INC 1ST >1 HR BASIC 19039 [facility] YOU METABOLIC 8 [facility] PANEL INC INC CALCIUM TOTAL CREATINE 78548 [facility] YOU KINASE 8 [facility] TOTAL INC INC RHYTHM 75634 [facility] YOU ECG 1-3 8 [facility] LEADS INC INC TRACING ONLY W/O I&R IV NFUS 79358 [facility] YOU THER 8 [facility] PROPH/DX INC INC EA HR PRESSURIZ 14884 K[facility] YOU ED/NONPRE 8 [facility] SSURIZED INC INC INHALATIO N TREATMENT CREATINE 29761 [facility] YOU KINASE MB 8 [facility] FRACTION INC INC ONLY BLOOD 76954 [facility] YOU COUNT 8 [facility] COMPLETE INC INC AUTO&[place] [address] [place] YOU TROPONIN 8 [facility] QUANTITAT INC INC CARLOS NATRIURET 24419 [facility] YOU IC 8 [facility] PEPTIDE INC INC RADIOLOGI 43850 [facility] YOU C 8 [facility] EXAMINATI INC INC ON CHEST SINGLE VIEW FRONTAL BLS A0382 LINDA LINDA ROUTINE 8 CO CO DISPOSABL AMBULANCE AMBULANCE E SERVICE SERVICE SUPPLIES GROUND A0425 LINDA LINDA MILEAGE 8 CO CO PER AMBULANCE AMBULANCE STATUTE SERVICE SERVICE MILE AMBULANCE A0429 LINDA LINDA SERVICE 8 CO CO BLS AMBULANCE AMBULANCE EMERGENCY SERVICE SERVICE TRAN[facility]ORT [facility] 29559 [facility] 8 Jamee SANTOYO JR, J V DAY MANAGEMEN T 30 MIN/< SBSQ 02469 [facility] 8 JR, J V JR, J V CARE/DAY 15 MINUTES SBSQ 93169 [facility] 8 JR, J V JR, J V CARE/DAY 15 MINUTES SBSQ [address] E CARE/DAY EMD 25 MINUTES SBSQ [address] E CARE/DAY EMD 25 MINUTES SBSQ [address] E CARE/DAY EMD 25 MINUTES RADIOLOGI 76310 Olegario REYES EXAM 8 [facility]ICAL [place] P CHEST 2 IMAGING VIEWS ASSOCIATE FRONTAL&L S ATERAL GROUND A0425 Novadiol [facility] MILEAGE 8 AMBULANCE AMBULANCE PER SERVICE SERVICE STATUTE MILE INITIAL [address] E CARE/DAY EMD [address] [facility] SERVICE 8 AMBULANCE AMBULANCE ALS SERVICE SERVICE EMERGENCY TRANSPORT LEVEL [address] [facility] OXYGEN&O2 8 AMBULANCE AMBULANCE SUPPLIES SERVICE SERVICE LIFE SUSTAININ G SITUATION AMB A0422 LINDA LINDA OXYGEN&O2 8 CO CO SUPPLIES AMBULANCE AMBULANCE LIFE SERVICE SERVICE SUSTAININ G SITUATION THER 23987 [facility] PROPH/DX [address] [place] [address] SEQL [place] PUSH SBST/[place] [address] [facility] TROPONIN [address] [place] [address] QUANTITAT [facility] CARLOS BLOOD [address] [facility] [address] [place] COUNT [address] [place] [address] AUTO&AUTO DIFRNTL WBC RADIOLOGI 71253 RADIOLOGY Olegario [place] EXAMINAMYRTLE ASSOCIATE ON CHEST S PSC SINGLE VIEW FRONTAL GROUND A0425 LINDA LINDA MILEAGE 8 CO CO PER AMBULANCE AMBULANCE STATUTE SERVICE SERVICE MILE AMBULANCE A0429 LINDA LINDA SERVICE 8 CO CO BLS AMBULANCE AMBULANCE EMERGENCY SERVICE SERVICE TRANSPORT FIBRIN 46183 [facility] DGRADJ [address] [place] [address] D-DIMER ULTRASENS ITIVE BASIC 18935 [facility] METABOLIC [address] [place] [address] CALCIUM TOTAL ECG [address] [facility] [address] KE ROUTINE 8 [facility] ECG [facility] W/LEAST 12 LDS TRCG ONLY W/O I&R THER 10402 [facility] PROPH/DX [address] [place] [address] NJX IV [facility] PUSH 1ST [facility] 00804 PATIENT KLAUDIA, DISCHARGE 8 FIRST CASSANDRA G DAY PHYS MANAGEMEN T 30 MIN/< SBSQ 08339 PATIENT [facility] 8 [place] CARE/DAY PHYS 15 MINUTES INITIAL 29990 PATIENT [facility] 8 [place] CARE/DAY PHYS 50 MINUTES DOPPLER 46015 CARDIOLOG GARCIA, ECHOCARD 8 Y SHELBI D PULSE ASSOCIATE WAVE S W/SPECTRA L DISPLAY ECHO 75313 CARDIOLOG GARCIA, TRANSTHOR 8 Y SHELBI D AC R-T 2D ASSOCIATE W/WO S M-MODE REC COMP GROUND A0425 LINDA LINDA MILEAGE 8 CO CO PER AMBULANCE AMBULANCE STATUTE SERVICE SERVICE MILE AMBULANCE A0429 LINDA LINDA SERVICE 8 CO CO BLS AMBULANCE AMBULANCE EMERGENCY SERVICE SERVICE TRANSPORT RADIOLOGI 50717 RADIOLOGY NEILS, C EXAM 8 NOEMY W CHEST 2 ASSOCIATE VIEWS S PSC FRONTAL&L ATERAL ECG 80473 DEJON ROJAS, ROUTINE 8 C FAUSTINO ECG CARDIOLOG W/LEAST ISTS INC 12 LDS I&R ONLY BLS A0382 LINDA LINDA ROUTINE 8 CO CO DISPOSABL AMBULANCE AMBULANCE [place] [address] [facility] TROPONIN [address] [place] [address] QUANTITAT [facility] CARLOS BLOOD [address] [facility] [address] MCINTYRE COUNT [address] [place] [address] COMPLETE [facility] AUTOMATED ECG 17847 DEJON WHITING ROUTINE 8 C , TATE J ECG CARDIOLOG W/LEAST ISTS INC 12 LDS I&R ONLY RADIOLOGI 92019 [facility] C EXAM [address] [place] [address] CHEST 2 EAST EAST VIEWS FRONTAL&L ATERAL AMBULANCE A0429 LINDA LINDA SERVICE 8 CO CO BLS AMBULANCE AMBULANCE EMERGENCY SERVICE SERVICE TRANSPORT GROUND A0425 LINDA LINDA MILEAGE 8 CO CO PER AMBULANCE AMBULANCE STATUTE SERVICE SERVICE MILE BASIC 11559 [facility] METABOLIC [address] [place] [address] PANEL EAST EAST CALCIUM TOTAL THER 15303 [facility] PROPH/DX 8 [facility] NJX IV [facility] PUSH 1ST SBST/DRUG ECG 17136 [facility] ROUTINE [address] [place] [address] ECG [facility] W/LEAST 12 LDS TRCG ONLY W/O I&R BASIC 30513 PATIENT KALFAS, METABOLIC 8 [facility] [place] C PANEL PHYS CALCIUM TOTAL LIPID 80496 PATIENT KALFAS, PANEL 8 [facility] [place] C PHYS ECG 10160 KENYATTA ADAMS, ROUTINE [address] [facility] W/LEAST PROF SERV 12 LDS I&R ONLY AMBULANCE A0429 LINDA LINDA SERVICE 8 CO CO BLS AMBULANCE AMBULANCE EMERGENCY SERVICE SERVICE TRANSPORT GROUND A0425 LINDA LINDA MILEAGE 8 CO CO PER AMBULANCE AMBULANCE STATUTE SERVICE SERVICE MILE PRESSURIZ 78438 K[facility] YOU ED/NONPRE 8 [facility] SSURIZED INC INC INHALATIO N TREATMENT CREATINE 90552 K[facility] YOU KINASE MB 8 [facility] FRACTION INC INC ONLY BLOOD 47032 [facility] YOU COUNT 8 [facility] COMPLETE INC INC AUTO&[place] [address] K[facility] YOU TROPONIN 8 [facility]OS[facility] QUANTITAT INC INC CARLOS BLS A0382 LINDA LINDA ROUTINE 8 CO CO DISPOSABL AMBULANCE AMBULANCE E SERVICE SERVICE SUPPLIES RADIOLOGI 94701 Olegario REYES 8 PRADEEP Phillips EXAMINATI IMAGING ON CHEST ASSOCIATE SINGLE S VIEW FRONTAL BASIC 26024 K[facility] YOU METABOLIC 8 [facility] PANEL INC INC CALCIUM TOTAL ECG 37804 K[place] YOU ROUTINE 8 [facility] ECG INC INC W/LEAST 12 LDS TRCG ONLY W/O I&R CREATINE 96193 K[facility] YOU KINASE 8 [facility] TOTAL [facility] 25528 [facility] DISCHARGE 8 JR, J V JR, J V DAY MANAGEMEN T 30 MIN/< SBSQ 15293 [facility] 8 JR, J V JR, J V CARE/DAY 25 MINUTES INITIAL 66015 [facility] 8 JR, J V JR, J V CARE/DAY 50 MINUTES INITIAL 16569 [facility] OBSERVATI 8 JR, J V JR, J V ON CARE/DAY 50 MINUTES RADIOLOGI 21630 Olegario REYES EXAM 8 [facility] P CHEST 2 IMAGING VIEWS ASSOCIATE FRONTAL&L S ATERAL ECG 11954 KENYATTA BELLE ROUTINE 8 [facility] W/LEAST PROF SERV 12 LDS I&R ONLY AMBULANCE A0429 LINDA LINDA SERVICE 8 CO CO BLS AMBULANCE AMBULANCE EMERGENCY SERVICE SERVICE TRANSPORT GROUND A0425 LINDA LINDA MILEAGE 8 CO CO PER AMBULANCE AMBULANCE STATUTE SERVICE SERVICE MILE BLS A0382 LINDA LINDA ROUTINE 8 CO CO DISPOSABL AMBULANCE AMBULANCE E SERVICE SERVICE [facility] 92565 EMILY DIAZ, DISCHARGE 8 [facility] E DAY EMD MANAGEMEN T 30 MIN/< RADIOLOGI 27935 Olegario REYES EXAM 8 [facility] P CHEST 2 IMAGING VIEWS ASSOCIATE FRONTAL&L S ATERAL SBSQ [address] E CARE/DAY EMD 25 MINUTES SBSQ [address] E CARE/DAY EMD 25 MINUTES ECG 76586 KENYATTA DIAZ, ROUTINE 8 [facility] W/LEAST PROF SERV 12 LDS I&R ONLY SBSQ [address] E CARE/DAY EMD 25 MINUTES SBSQ 45468 EMILY [facility] 8 [facility] E CARE/DAY EMD 25 MINUTES AMBULANCE A0429 LINDA LINDA SERVICE 8 CO CO BLS AMBULANCE AMBULANCE EMERGENCY SERVICE SERVICE TRANSPORT ECG 35776 KENYATTA DIAZ, ROUTINE 8 [facility] W/LEAST PROF SERV 12 LDS I&R ONLY GROUND A0425 LINDA LINDA MILEAGE 8 CO CO PER AMBULANCE AMBULANCE STATUTE SERVICE SERVICE MILE INITIAL 15529 EMILY [facility] 8 [facility] CARE/DAY EMD 50 MINUTES RADIOLOGI 82877 Olegario MOLINA 8 MEDICAL CAROL EXAMINATI IMAGING ON CHEST ASSOCIATE SINGLE S VIEW FRONTAL BLS A0382 LINDA LINDA ROUTINE 8 CO CO DISPOSABL AMBULANCE AMBULANCE E SERVICE SERVICE SUPPLIES Encounters Encounter Start End Date Code Location Performer Type Date EMERGENCY 31873 [facility] PHYSICIAN U VISIT S, [facility] HIGH SEVERITY& THREAT [facility] - 7 7 [facility] OUTPATIEN INC T EMERGENCY 18945 [facility] 7 7 [facility] DEPARTMEN INC T VISIT HIGH/URGE NT SEVERITY [facility]OSPITAL [facility] - 7 7 [facility] INPATIENT INC EMERGENCY 07768 [facility] DE[facility] 7 7 PHYSICIAN VISIT S, [facility] HIGH SEVERITY& THREAT [facility] EMERGENCY 00059 [facility] DEPT 6 6 [facility] VISIT INC HIGH SEVERITY& THREAT [facility] [place] - 6 6 [facility] OUTPATIEN INC T EMERGENCY 63839 [facility] 6 6 [facility] DEPARTMEN INC T VISIT HIGH/URGE NT SEVERITY HOSPITAL [facility] - 6 6 [facility] OUTPATIEN INC T EMERGENCY 61267 [facility] DEPT 6 6 [facility] VISIT INC HIGH SEVERITY& THREAT [facility]PITAL [place] - [address] [facility] T OFFICE 71669 [facility] 6 6 NATHANIEL N T VISIT MED CTR 15 [facility] ST - 6 6 NATHANIEL OUTPATIEN [facility] OFFICE 37511 JAYJAY NIV OUTPATIEN 6 6 NATHANIEL T VISIT 25 PHYSICIAN MINUTES S OFFICE 94565 [facility] 6 NATHANIEL T VISIT 25 PHYSICIAN MINUTES S OFFICE 64592 [facility] 6 6 NATHANIEL T VISIT 25 PHYSICIAN MINUTES S OFFICE 39578 [facility] 6 6 NATHANIEL YEAR LAT T VISIT 15 PHYSICIAN MINUTES S OFFICE 54023 [facility] 5 5 NATHANIEL ALDAIR T VISIT [address] [facility] - 5 5 [facility] 5 [facility] 5 5 [facility] - 4 4 N[facility] - 4 4 NATH[facility] - 4 4 NATHANIEL [facility] - 4 4 NATHANIEL [facility] - 3 3 NATHANIEL [facility] CTR T [facility] CHILDRENS - OTHER 3 3 [facility]ICAL C OFFICE 59090 [facility] 3 3 N JORDYN N JORDYN T VISIT 15 MINUTES OFFICE 69105 [facility] 3 3 NATHANIEL T VISIT [address] [facility] [address] - 3 3 NATHANIEL OUTPATIEN FT T [facility]OB[facility] OFFICE 13603 [facility] OUTPATIEN 3 3 T VISIT 15 MINUTES OFFICE 21851 [facility] OUT[facility]IEN 3 3 JAM JAM T VISIT [address] - 3 3 NATHANIEL OUTPATIEN MEDICAL T CENTER OFFICE 75650 [facility] 3 3 YEAR LAT YEAR LAT T VISIT 25 MINUTES HOSPITAL CHILDRENS - OTHER 3 3 [facility] OFFICE 41662 LEANDRA MOBLEY OUTPATIEN 3 3 N JORDYN N JORDYN T VISIT [address] [facility] [address] - 3 3 NATHANIEL OUTPATIEN FT T [facility]OBBY OFFICE 71466 ST OUTPATIEN 3 3 NATHANIEL T VISIT 5 FT MINUTES [facility] ST - 3 3 NATHANIEL OUTPATIEN FT T [facility]OB[facility] OFFICE 11359 LEANDRA MOBLEY OUTPATIEN 3 3 N JORDYN N JORDYN T VISIT 15 MINUTES OFFICE 03575 [facility] OUTPATIEN 3 3 JOSE MANUELI M MATIAS M T VISIT 15 MINUTES OFFICE 83724 LEANDRA MOBLEY OUTPATIEN 3 3 N JORDYN N JORDYN T VISIT [address] - 3 3 NATHANIEL OUTPATIEN FT T BOBBY OFFICE 51418 LEANDRA MOBLEY OUTPATIEN 3 3 N JORDYN N JORDYN T VISIT 25 MINUTES OFFICE 84363 [facility] 3 3 YEAR LAT YEAR LAT T NEW 30 MINUTES OFFICE 45206 LEANDRA MOBLEY OUTPATIEN 3 3 N JORDYN N JORDYN T VISIT 25 MINUTES OFFICE 35823 LEANDRA MOBLEY OUTPATIEN 3 3 N JORDYN N JORDYN T VISIT 25 MINUTES OFFICE 19100 LEANDRA MOBLEY OUTPATIEN 3 3 N JORDYN N JORDYN T VISIT [address] [facility] 3 3 NATHANIEL SENTHIL ION NEW/ESTAB PHYSICIAN PATIENT S [address] OUTPATIEN 3 3 NATHANIEL T VISIT 5 FT MINUTES [facility] ST - 3 3 NATHANIEL OUTPATIEN FT T VENICE OFFICE 35658 [facility] OUTPATI[facility] 3 3 T NEW 45 MINUTES OFFICE 90459 LEANDRA BARNESMAN OUTPATIEN 3 3 N JORDYN N JORDYN T NEW 60 MINUTES OFFICE 80049 CARLENE CONCEPCION OUTPATIEN 3 3 JR. JONNY FULLER T VISIT 15 MINUTES [facility] [address] [facility] T OFFICE 92675 BARBRA RIDDLE 3 3 JR CHRYSTAL JARRELL T VISIT 15 MINUTES OFFICE 76479 CARLENE CONCEPCION OUTPATIEN 3 3 JR. JONNY GIRARD NEW 45 MINUTES [facility] [place] [facility] [place] [facility] INPATIENT INC OFFICE 15517 BARBRA RIDDLE 2 2 JR CHRYSTAL JARRELL T VISIT 15 MINUTES EMERGENCY [id number] NILSA CHAVEZ DEPT 2 2 EMERGENCY VISIT SERVICES HIGH SEVERITY& THREAT [facility] [place] - [facility] T OFFICE 82001 BRODIE NIDA WHLEYDI NIDA CONSULTAT 2 2 ION NEW/ESTAB PATIENT 60 MIN OFFICE 31886 BESSON BESSON OUTPATIEN 2 2 MAURO MAURO T VISIT 25 MINUTES [facility] [place] - 2 2 [facility] [place] [facility] OFFICE 50367 BESSON BESSON OUTPATIEN 2 2 MAURO MAURO T VISIT 25 MINUTES OFFICE 55130 BESSON BESSON OUTPATIEN 2 2 MAURO MAURO T VISIT 15 MINUTES OFFICE 18183 BESSON BESSON OUTPATIEN 2 2 MAURO MAURO T VISIT 25 MINUTES [facility] [place] - 2 2 [facility] OFFICE 32460 BARBRA BELLE OUTPATIEN 2 2 JR CHRYSTAL JR CHRYSTAL T VISIT 15 MINUTES [facility] [place] - 2 2 [facility] [place] - 2 2 [facility] [place] - 1 1 [facility] INPATIENT [facility] EMERGENCY 06235 HEBER BUCK DEPT 1 1 [facility] DIONNA VISIT [facility]IGH SEVERITY& THREAT [facility] [place] - 1 1 [facility] EMERGENCY 99834 [place] 1 1 [facility] VISIT LOW/MODER SEVERITY EMERGENCY 88773 NILSA SILVERIO DEPT 1 1 EMERGENCY III CHRYSTAL VISIT SERVICES HIGH SEVERITY& THREAT [facility] ST - 1 1 [facility] 72307 EMERGENCY JEAN-CLAUDE DEPT 1 1 CARE CESAR VISIT PHYS HIGH NORTHERN SEVERITY& THREAT [facility] ST - [facility] 1 [facility] [address] ST DEPT 1 1 NATHANIEL VISIT FT HIGH BOBBY SEVERITY& THREAT [facility] OFFICE [address] ST [facility] OUTPATIEN 1 1 NATHANIEL NIDA T VISIT 25 PHYSICIAN MINUTES S EMERGENCY 22174 EMERGENCY JUAN ANTONIO DEPT 1 1 CARE MARCIN VISIT PHYS HIGH NORTHERN SEVERITY& THREAT [facility] OFFICE [address] [facility] OUTPATIEN 0 0 NATHANIEL ALDEN T VISIT 25 PHYSICIAN MINUTES S OFFICE 45747 MOJGAN HERRMANNPATIEN 0 0 NATHANIEL ALDEN T VISIT 15 PHYSICIAN MINUTES S OFFICE 84223 MOJGAN HERRMANNPATIEN 0 0 NATHANIEL ALDEN T VISIT 25 PHYSICIAN MINUTES S OFFICE 70001 [facility] OUTPATIEN 0 0 I [facility] J T NEW [facility] MINUTES OFFICE 55903 PATIENT VENKATESH LACEY 9 9 FIRST [place] T VISIT PHYS 25 MINUTES EMERGENCY 50977 EMERGENCY MELO, DEPT 9 9 CARE AGUILAR U VISIT PHYS HIGH [place]THER[place] SEVERITY& [place] THREAT [facility] [address] OFFICE [address] PATIENT VENKATESH LACEY 9 9 [facility] T VISIT PHYS 25 MINUTES EMERGENCY 65969 EMERGENCY SEJAL, DEPT 9 9 CARE ERNST VISIT PHYS HIGH [place] SEVER[place]& [place] THREAT [facility] EMERGENCY 48455 EMERGENCY JUAN ANTONIO, DEPT 9 9 CARE MIMI D VISIT PHYS HIGH [place] SEVER[place]& [place] THREAT [facility] [place] - 9 9 [facility] T EMERGENCY 40412 NILSA BUCK, DEPT 9 9 EMERGENCY CASSANDRA S VISIT SERVICES HIGH SEVERITY& ASSOCIATE THREAT [facility] [place] - 9 9 [facility] INPATIENT INC EMERGENCY [id number] NILSA BUCK, DEPT 9 9 EMERGENCY [place]AN[place]A S VISIT SERVICES HIGH SEVERITY& ASSOCIATE THREAT S [facility] [place] - 9 9 [facility] INPATIENT INC OFFICE 33160 [facility]ADA [facility]LLO [facility] 9 Jamee SANTOYO JR, J V T VISIT 15 MINUTES OFFICE 03645 [facility]RRUTIA [facility] 9 9 Jamee SANTOYO JR, J V T VISIT 15 MINUTES EMERGENCY 18026 [place] 9 9 [facility] VISIT MODERATE SEVERITY EMERGENCY 79650 CAMILO MERCADO, CHERISET 9 9 NATIONAL KRYSTAL VISIT CORPORATI O HIGH ON SEVERITY& THREAT [facility] [place] - 9 9 [facility] OUTFORMERLY [facility] [place] - 8 8 [facility] OUTFORMERLY [facility] EMERGENCY 96816 [place] 8 8 [facility] VISIT HIGH/URGE NT SEVERITY HOSPITAL [place] - 8 8 [facility] INPATIENT [facility] EMERGENCY 16838 EMERGENCY [place] DEPT 8 8 CARE [facility] L VISIT PHYS HIGH [place] SEVERITY& [place] THREAT [facility] EMERGENCY 69252 [facility] 8 8 [facility] VISIT HIGH/URGE NT SEVERITY HOSPITAL [facility] - 8 [facility] EMERGENCY 37439 EMERGENCY TYRELL DEPT 8 8 CARE [place] VISIT PHYS HIGH [place] SEVER[place]& [place] THREAT [facility] EMERGENCY 10122 EMERGENCY MORALES DEPT 8 8 CARE RADAMES L VISIT PHYS HIGH [place] SEVER[place]& [place] THREAT [facility] [place] [id number] 8 [facility] EMERGENCY 49734 [facility] DEPT 8 8 HOSPITAL VISIT EAST HIGH SEVERITY& THREAT FUN OFFICE [id number] PATIENT VENKATESH RUDOLPH 8 8 FIRST CASSANDRA Mojica MG 45 PHYS MINUTES EMERGENCY 32271 [place] 8 8 [facility] T VISIT MODERATE SEVERITY HOSPITAL [place] - 8 8 [facility] EMERGENCY 07312 [place] 8 8 [facility] T VISIT LIMITED/M INOR PROB HOSPITAL [place] - 8 8 [facility] OUTPATIEN [facility] T EMERGENCY 62912 [place] ZARATE, 8 8 [facility] T VISIT PROF SERV LOW/MODER SEVERITY HOSPITAL [place] - 8 8 [facility] INPATIENT [facility] [place] - 8 8 [facility] INPATIENT [facility]
--- OUTSIDE RECORDS SUMMARY | 2017-03-12 13:23 | External Medical Summary Rpt ---
Demographics Preferred Language Brazilian Marital Status Unknown Samaritan Affiliation Unknown Race Unknown Ethnic Group Unknown Author Author RYAN Address Unknown Phone Immunization No patient found.
--- OUTSIDE RECORDS SUMMARY | 2017-03-12 13:23 | External Medical Summary Rpt ---
Demographics Preferred Language Bermudian Marital Status Unknown Voodoo Affiliation Unknown Race Unknown Ethnic Group Unknown Author Author RYAN Address Unknown Phone Immunization No patient found.
[2017-03-12 13:49] VITALS: BP 145/89
[2017-03-12 16:00] VITALS: BP 138/83
--- NOTE | 2017-03-12 17:21 | HISTORY AND PHYSICAL REPORT ---
Demographics: Admit date: 03/12/17 Chief complaint: Shortness of air and fatigue PRIMARY DIAGNOSIS: copd Allergies: Coded Allergies: No Known Allergies (10/01/16) History of present illness: History of present illness: 66-year-old white female with end-stage, terminal COPD, currently under hospice care, who came to the emergency part for the second time in 3 days with cough, shortness of air and fatigue. Found to have significant worsening oxygen requirement, scarring on chest x-ray, cough and congestion, lower O2 saturations and was admitted to hospital for further evaluation Past medical history: Family HX Diabetes Yes CAD Yes Hypertension Yes Hyperlipidemia Yes Cancer Yes TB No Immunization HX DT/Tetanus Unknown Flu REFUSES Pneumonia Received In Past TB Test in last year No General CAD? No Angina: No OK: No Hypertension? Yes Hyperlipidemia? No CHF? No DVT? No PE? No COPD? Yes Asthma? Yes Anemia? No GERD? No Gastric ulcers? Yes GI Bleed? No Hernia? No Thyroid Problems? No Hypothyroidism? No CVA? No Seizures? No Diabetes? Yes Insulin Dependent: No Insulin Pump: No Home FSBS? No Renal Insuffiency? No UTI? No Stones? No GB Disease: No Nephritic Syndrome? No Asplenia? No Hepatitis? No Sickle Cell Disease? No Arthritis? Yes Migraines? No Cataracts? No Glaucoma? No MRSA? No HIV? 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 No Depression? No Cancer? Yes Site: lung More? 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 Past Surgical HX Previous Surgery?Y Hysterect GALL BLADDER Current home meds: Active Scripts Albuterol/Ipratropiu (Duoneb) 3 ML IH Q4HP #30 VIAL Prov: 04/30/11 Tiotropium [place] (Spiriva) 18 MCG IH DAILY #30 CAP Ref 3 Prov: 06/29/16 Reported Medications Linagliptin (Tradjenta) 5 MG PO DAILY #90 Furosemide (Furosemide) 20 MG PO DAILY DULOXETINE HCL (Cymbalta 60MG) 60 MG PO DAILY Losartan Potassium (Losartan 50MG) 50 MG PO DAILY #90 TAB Sertraline Hydrochloride (Sertraline 100MG) 100 MG PO DAILY Roflumilast (Daliresp) 500 MCG PO DAILY Pantoprazole Sodium (Protonix 40MG TAB) 40 MG PO BID MOMETASONE/FORMOTEROL (Dulera 200 Mcg/5 Mcg Inhaler) 2 PUFFS IH BID #13 BUDESONIDE/FORMOTEROL FUMARATE (Symbicort 160-4.5 Mcg Inhaler) 1 PUFF IH BID #10 Olanzapine (Olanzapine 5MG Tab) 5 MG PO QHS Dexamethasone 4 MG FT DAILY #3 Amitriptyline Hcl (Amitriptyline) 50 MG PO QHS Social Hx: Smoking HX Tobacco No Packs/day 2 1/2 - 3 PACKS Are you/the child exposed to second-hand smoke: No Alcohol Alcohol: No Hx of Drug Use Drug Use? No Patien't marital status is Patient's support system is poor Comment: Lots of social upheaval. Recently evicted from her home with the rest of the family. On hospice care at hospice has declined to prescribe any further controlled substances as diversion has occurred within the home. Review of systems: Constitutional fever, malaise, weakness. Respiratory shortness of breath, SOB with excertion, SOB at rest. Cardiovascular No no symptoms reported Gastrointestinal/Abdominal abdomen distended, abdominal pain Genitourinary No: no symptoms reported. Musculoskeletal back pain. Neurological Yes: weakness. Exam: Lab data for last 24 hours: Laboratory Tests 03/12/17 1656: POC Glucose 236 H 03/12/17 1500: Lactic Acid 2.3 H 03/12/17 1150: ABG pH 7.40, ABG pCO2 (Temp Corrct 41.6, ABG pO2 (Temp Correct 94.0, ABG HCO3 25.0, ABG Total CO2 26.3, ABG O2 Sat (Calculated) 96.4, ABG Base Excess 0.2, Ernst Test ACCEPTABLE, Blood Gas Comments RIGHT RADIAL 03/12/17 1105: Lactic Acid 3.4 H 03/12/17 1105: Sodium 141, Potassium 3.8, Chloride 104, Carbon Dioxide 29, BUN 23 H, Creatinine 0.9, Estimated Creat Clear 73, Estimated GFR (MDRD) 62, Glucose 217 H, Calcium 9.5, Total Bilirubin 0.3, AST 10 L, ALT 19, Alkaline Phosphatase 90, Creatine Kinase 31, CK-MB (CK-2) Rel Index 2.3, CK and CKMB Interp 0.7, Troponin I < 0.02, Total Protein 7.8, Albumin 3.3 L, Globulin 4.5 H, Albumin/Globulin Ratio 0.7 L, WBC 10.2, RBC 4.47, Hgb 12.2, Hct 39.1, MCV 87.4, RDW 15.6, Plt Count 233, MPV 7.9, Gran % 82.2 H, Gran # 8.4 H, Lymphocytes % 10.8, Monocytes % 3.7, Eosinophils % 2.9, Basophils % 0.4, Lymphocytes # 1.1, Monocytes # 0.4, Eosinophils # 0.3, Basophils # 0.0, PUBS MCHC 31.1 L, MCH 27.2 Microbiology 03/12 1105 BLOOD: Anaerobic Blood Culture - RECD 03/12 1105 BLOOD: Aerobic Blood Culture - RECD 03/12 1105 BLOOD: Anaerobic Blood Culture - RECD 03/12 1105 BLOOD: Aerobic Blood Culture - RECD Admission vital signs: 1ST Vital Signs Result Date Time Pulse Ox 88 03/12 1057 B/P 172/72 03/12 1057 Temp 98.3 03/12 1057 Pulse 120 03/12 1057 Resp 30 03/12 1057 O2 Delivery OXYGEN 03/12 1115 O2 Flow Rate 3 03/12 1115 Additional information: The patient is an aged appearing white female who is edentulous. Poor skin turgor and poor hygiene. Multiple homemade tattoos of initials, heart motifs and crosses on upper extremities. Lungs with rhonchi, poor air movement. No crackles. Minimal expiratory wheezing. Abdomen soft. Heart rate regular. She is alert. Talkative. Plan: Problem List 1. Acute exacerbation of chronic obstructive airways disease Status Acute 2. Diabetes 3. Chronic back pain 4. Hypertension Plan: Admit to hospital. IV steroids antibiotics. Pulmonary toilet. community services manager consult for disposition/living arrangement issues. at 1720
[2017-03-12 19:23] VITALS: BP 122/67
[2017-03-12 20:10] VITALS: BP 122/67
[2017-03-13 05:44] VITALS: BP 129/68
[2017-03-13 07:16] LABS: LYMPH # 0.9 K/mm3 (0.7-4.5); LYMPH % 9.7 % (10-50.0)
[2017-03-13 07:28] LABS: HEMOGLOBIN 10.7 g/dL (12.2-16.2)
[2017-03-13 07:49] VITALS: BP 132/67
--- NOTE | 2017-03-13 08:06 | ACUTE CARE PROGRESS NOTE (QUA) ---
Progress Notes Subjective Date 03/13/17 Time 0805 Note Patient slept well. They've well. Lungs have rhonchi and some diffuse wheezing but at baseline. No accessory muscle use. Heart rate regular. Abdomen soft. No edema. Objective Findings Last VS-Temp:97.5 B/P:132/67 Pulse:98 Resp:20 SaO2:95 OXYGEN Last weight lbs:157 oz:4 K.328 Method:Bed Scales Assessment/Plan Problem List 1. Acute exacerbation of chronic obstructive airways disease Status: Acute 2. Diabetes 3. Chronic back pain 4. Hypertension Patient condition Improving Plan: continue current care, patient is at baseline. She will need care management help to go home given her multiple social issues and hospice involvement. This inpt stay is expected to cross 2 MNs from start of care No at 0805
[2017-03-13 09:13] LABS: NEUTROPHILS 92 % (42-76)
[2017-03-13 09:32] VITALS: BP 132/67
[2017-03-13] MEDS ORDERED: ZITHROMAX Z-PA250 M2 PO (11:08)
[2017-03-13] MEDS ORDERED: PREDNISONE 20MG20 MG PO (11:09)
--- NOTE | 2017-03-13 11:13 | DISCHARGE SUMMARY STANDARD ---
Demographics Admit date: 03/12/17 Discharge date: 03/13/17 History of present illness History of present illness 66-year-old white female with end-stage, terminal COPD, currently under hospice care, who came to the emergency part for the second time in 3 days with cough, shortness of air and fatigue. Found to have significant worsening oxygen requirement, scarring on chest x-ray, cough and congestion, lower O2 saturations and was admitted to hospital for further evaluation Hospital Course Hospital Course: patient was admitted overnight, with resumption of oxygen therapy she normalized to her baseline of poor respiratory health but improved very nicely. Chest x-ray showed no infiltrate - and she was given antibiotics to cover COPD exacerbation missues and did well with this. Hospice was contacted and arranged for resumption of her oxygen and nebulizer treatments given her new living situation, and she will be discharged on azithromycin and prednisone taper. Discharge diagnoses Problem List 1. Acute exacerbation of chronic obstructive airways disease Status Acute 2. Diabetes 3. Chronic back pain 4. Hypertension Medications Medications: Discharge meds are as noted. Follow up Follow up in office in: 1 DAY with: OTHER at 1112
--- NOTE | 2017-03-13 14:29 | PHARMACY CLINIC NOTE ---
Patient Demographics Patient Demographics Admission date: 03/12/17 Date: 03/13/17 Time: 1428 Allergies Coded Allergies: No Known Allergies (10/01/16) HEIGHT- FT: 5 IN: 6.00 K.328 VTE General Information Labs: Laboratory Tests 03/13 0630 Hematology Hgb (12.2 - 16.2 g/dL) 10.7 L Hct (37.0 - 47.0 %) 32.8 L Plt Count (142 - 424 K/mm3) 219 Disclaimer The following section includes nursing documentation that has been pulled in for pharmacy review. Patient's VTE score: 3 Patient's VTE Risk: LOW RISK Clinical trial participant? No VTE prophylaxis F 0371 VTE prophylaxis ordered? Yes Type of prophylaxis/treatment: ELIS at 9030
[2017-03-13 16:01] VITALS: BP 111/56
[2017-03-13 20:19] VITALS: BP 126/76
[2017-03-13 20:23] VITALS: BP 126/76
[2017-03-14 04:12] VITALS: BP 125/67
[2017-03-14 08:00] VITALS: BP 146/76
[2017-03-14 10:09] VITALS: BP 146/76
== END 2017-03-14 10:30 | disposition hospice, home (50) ==
LOC: ER 10:54 → 2ND 12:41 → ER 12:41 → 2ND 13:48
PROVIDERS: Emergency Medicine
DX: J44.1 Chronic obstructive pulmonary disease with (acute) exacerbation (principal); R06.09 Other forms of dyspnea; I10 Essential (primary) hypertension; E11.9 Type 2 diabetes mellitus without complications; Z99.81 Dependence on supplemental oxygen
CPT/HCPCS: G0378; J0456

== ENCOUNTER 2017-03-25 11:18 | Emergency (ER) | payer MEDICARE, MEDICAID ==
[~2017-03-25] VITALS: Ht 167.6 cm; Wt 65.8 kg
[~2017-03-25 11:18] MED LIST changes: +AMITRIPTYLINE 550 MG PO; +DEXAMETHASONE4 MG FT; +OLANZAPINE5 MG PO; +SYMBICORT1 AE1 IH; +ZITHROMAX Z-PA250 M2 PO
[2017-03-25 11:40] LABS: LYMPH # 1.3 K/mm3 (0.7-4.5); LYMPH % 13.1 % (10-50.0)
[2017-03-25 11:48] LABS: HEMOGLOBIN 12.2 g/dL (12.2-16.2)
--- NOTE | 2017-03-25 11:51 | Emergency Room Report ---
History of Present Illness Time Seen by 1127 Presenting Problem in Triage Pt arrived:Wheelchair Presenting Problem:COUGH AND CONGESTION CAUSING CHEST DISCOMFORT FOR A FEW DAYS PT HAS BEEN LIVING IN HER VEHICLE WHILE HOSPICE TRIES TO GET HER A PLACE TO LIVE. HER FAMILY LIVES WITH HER ALSO. SUPPOSED TO BE ON OXYGEN REGULARLY AND HASN'T BEEN SINCE KICKED OUT OF HOUSE Onset of symptoms date/time:/ or onset unknown for:MEDICAL HX UNKNOWN Treatment Prior to Arrival: ANVILSMITH Provided by: Sepsis Risk Assessment: Temp: 99.0 B/P: MAP: Pulse: 98 Resp: 18 Recent fever? N Clinical Suspician of Infection? N Mental Status: 1 - Regular (Normal Baseline) Sepsis Risk:Low Sepsis Risk Have you (or family members/close friends) recently traveled outside the [place]? N If Yes, where/when: Have you had exposure to infectious disease within the past month? TB? Other? Specify: Hospice patient, oxygen dependent, steroid dependent, with recent admission for COPD exacerbation 03/13/[address] Zapata, reports that she has had wheezing over the past 24 hours with concomitant chest pain. No calf pain. No fever. See RN note regarding social situation. RN states Hospice is looking for placement options. Patient not using her home oxygen as prescribed. Source patient, RN notes reviewed, family, old records ALLERGIES Coded Allergies: No Known Allergies (03/25/17) Home Medications Active Scripts Azithromycin (Zithromax) 250 MG PO DAILY #6 TAB Prov: 03/13/17 Prednisone (Prednisone 20MG) 20 MG PO BID #10 TAB Prov: 03/13/17 Albuterol/Ipratropiu (Duoneb) 3 ML IH Q4HP #30 VIAL Prov: 04/30/11 Tiotropium [place] (Spiriva) 18 MCG IH DAILY #30 CAP Ref 3 Prov: 06/29/16 Reported Medications Linagliptin (Tradjenta) 5 MG PO DAILY #90 Furosemide (Furosemide) 20 MG PO DAILY DULOXETINE HCL (Cymbalta 60MG) 60 MG PO DAILY Losartan Potassium (Losartan 50MG) 50 MG PO DAILY #90 TAB Sertraline Hydrochloride (Sertraline 100MG) 100 MG PO DAILY Roflumilast (Daliresp) 500 MCG PO DAILY Pantoprazole Sodium (Protonix 40MG TAB) 40 MG PO BID MOMETASONE/FORMOTEROL (Dulera 200 Mcg/5 Mcg Inhaler) 2 PUFFS IH BID #13 BUDESONIDE/FORMOTEROL FUMARATE (Symbicort 160-4.5 Mcg Inhaler) 1 PUFF IH BID #10 Olanzapine (Olanzapine 5MG Tab) 5 MG PO QHS Dexamethasone 4 MG FT DAILY #3 Amitriptyline Hcl (Amitriptyline) 50 MG PO QHS History Medical History General CAD? No Angina: No ID: No Hypertension? Yes Hyperlipidemia? No CHF? No DVT? No PE? No COPD? Yes Asthma? Yes Anemia? No GERD? No Gastric ulcers? Yes GI Bleed? No Hernia? No Thyroid Problems? No Hypothyroidism? No CVA? No Seizures? No Diabetes? Yes Insulin Dependent: No Insulin Pump: No Home FSBS? No Renal Insuffiency? No End Stage Renal Disease? No UTI? No Stones? No GB Disease: No Nephritic Syndrome? No Asplenia? No Hepatitis? No Sickle Cell Disease? No Arthritis? Yes Migraines? No Cataracts? No Glaucoma? No MRSA? No HIV? 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 No Depression? No Cancer? Yes Site: lung More? 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 Immunization Hx Ped.Immunizations UTD Yes DT/Tetanus Unknown Flu REFUSES Pneumonia Received In Past Surgical Hx Previous Surgery?Y Hysterect GALL BLADDER Family History Family Hx Diabetes Yes CAD Yes Hypertension Yes Hyperlipidemia Yes Cancer Yes TB No Social History Smoking Hx Smoker: Former Smoker Tobacco: Yes Type Cigarettes Packs/day 2 1/2 - 3 Packs Alcohol Alcohol: No Review of Systems All Other Systems Reviewed and Negative Respiratory see HPI Cardiovascular see HPI Physical Exam Vital Signs Vital Signs Date Time Temp Pulse Resp B/P Pulse O2 O2 Flow FiO2 Ox Delivery Rate 03/25 1219 90 20 132/68 96 2 03/25 1200 2 03/25 1200 2 03/25 1200 2 03/25 1200 98 OXYGEN 2 03/25 1131 93 03/25 1122 99.0 98 18 94 General Appearance normal appearance (143/75 BP on monitor), WD/WN, no apparent distress Eye Exam - bilateral eye normal exam, bilateral eye PERRL, bilateral eye EOMI Neck normal inspection, non-tender, supple, full range of motion Respiratory Status Yes: trachea midline, chest symmetrical, non tender chest, non productive cough. No: respiratory distress, tender on palpation, use of accessory muscles, pain on inspiration, pain on expiration, productive cough. Lung Sounds bilateral: decreased breath sounds, wheezing. Cardiovascular normal exam, regular rate/rhythm, no peripheral edema, no gallop, no JVD, no murmur, no rub, normal peripheral pulses Gastrointestinal normal bowel sounds, normal exam, non tender, soft, no organomegaly, no pulsatile mass, no guarding, no rebound Extremities non-tender, normal range of motion, normal inspection, normal capillary refill, no calf tenderness, no pedal edema Strength 5 Upper Ext (L), 5 Upper Ext (R), 5 Lower Ext (L), 5 Lower Ext (R) Neurologic alert, normal exam, no motor/sensory deficits, oriented x 3 Glascow Coma Scale Glascow Coma Scale Response Value EYE response: 4 Spontaneously 4 MOTOR response: 6 OBEYS 6 VERBAL response: 5 Oriented & Converses 5 Total 15 Skin intact, warm/dry, pallor Lymphatic no adenopathy Medical Decision Making LABS/Meds/Orders Pt receiving controlled substance in ED? No Results/Orders Laboratory Tests 03/25/17 1320: Urine Color YELLOW, Urine Appearance CLEAR, Urine pH 6.0, Ur Specific [place] 1.015, Urine Protein NEGATIVE, Urine Ketones NEGATIVE, Urine Blood NEGATIVE, Urine Nitrate NEGATIVE, Urine Bilirubin NEGATIVE, Urine Urobilinogen 0.2, Ur Leukocyte Esterase NEGATIVE, Urine Glucose NEGATIVE 03/25/17 1125: Lactic Acid 2.8 H 03/25/17 1125: Sodium 142, Potassium 3.9, Chloride 101, Carbon Dioxide 34 H, BUN 20 H, Creatinine 0.8, Estimated Creat Clear 70, Estimated GFR (MDRD) 71, Glucose 144 H, Calcium 9.1, Total Bilirubin 0.4, AST 14 L, ALT 20, Alkaline Phosphatase 75, Creatine Kinase 50, CK-MB (CK-2) Rel Index 2.4, CK and CKMB Interp 1.2, Troponin I < 0.02, Total Protein 7.0, Albumin 3.5, Globulin 3.5 H, Albumin/Globulin Ratio 1.0 L, WBC 9.5, RBC 4.43, Hgb 12.2, Hct 37.5, MCV 84.6, RDW 15.8, Plt Count 220, MPV 7.6, Gran % 81.3 H, Gran # 7.7, Lymphocytes % 13.1, Monocytes % 3.4, Eosinophils % 1.8, Basophils % 0.4, Lymphocytes # 1.3, Monocytes # 0.3, Eosinophils # 0.2, Basophils # 0.0, PUBS MCHC 32.6, MCH 27.6 Current Medication Orders Sig/Lucrecia Start time Last Medication Dose Route Stop Time Status Admin Albuterol/Ipratropium 0 .STK-MED ONE 03/25 1208 DC INH Methylprednisolone 0 .STK-MED ONE 03/25 1200 DC Sodium Succinate .ROUTE Albuterol/Ipratropium 3 ML ONCE ONE 03/25 1145 DC 03/25 INH 03/25 1146 1200 Methylprednisolone 125 MG ONCE ONE 03/25 1145 DC 03/25 Sodium Succinate IV 03/25 1146 1203 Sodium Chloride 10 ML PRN PRN 03/25 1130 AC IV 03/26 1121 Orders Procedure Date/time Status RT Pulse Oximetry, Provide 03/25 1234 Active RT O2 Installation/Change Set 03/25 1234 Active RT O2 Therapy, Monitor/[place] 03/25 1234 Active RT Aerosol Treatment, Provide 03/25 1234 Active RT Aerosol Treatment, Provide 03/25 1234 Active URINALYSIS/COMPLETE 03/25 1156 Complete LACTIC ACID FOLLOW UP 03/25 1153 Active RT REQUEST DUONEB 03/25 1144 Active ELECTROCARDIOGRAM REQUEST 03/25 1122 Active CHEST(2 VIEWS-NOT PORTABLE) 03/25 1122 Active IV SALINE LOCK 03/25 1122 Active OXYGEN PER NURSE 03/25 1122 Active CULTURE, BLOOD 03/25 1122 Active LACTIC ACID 03/25 1122 Complete CBC WITH AUTO DIFF 03/25 1122 Complete CARDIAC ENZYMES 03/25 1122 Complete CHEM 12 PROFILE 03/25 1122 Complete 12 LEAD EKG-REBELSON (INITIAL) 03/25 1120 Active 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 ST/Twave chgs (Stach NSST w changes 101) XRAY/CT/US XRAY/CT/US XR interpretation by reviewed by me Xray Results no infiltrates, normal lung inflation josh (COPD) Departure Departure Time of Disposition 1331 Disposition DC Home or Self Care(routine) Clinical Impression Primary Impression: COPD exacerbation Condition STABLE Referrals Antione Zapata MD (Family) Patient Instructions Chronic Obstructive Pulmonary Disease Additional Instructions Rx Keflex, Medrol, recommend close contact with Hospice regarding your housing situation, follow up with Dr. Zapata one to two days Discharge Counseling Counseled pt/family regarding diagnosis, test results, medications/RX, home care, follow up needs Prescriptions Current Visit Scripts Cephalexin (Keflex) 750 MG PO QID #40 CAP Methylprednisolone (Medrol Dose [place]) 4 MG PO UD #1 PAUL TAKE DIRECTED ON PACKAGING ED Critical Care Critical Care No at 1331
[2017-03-25 12:01] LABS: BUN 20 mg/dL (7-18)
[2017-03-25 12:05] LABS: GFR (ESTIMATED) 71 ML/MIN (59-)
[2017-03-25] MEDS ORDERED: KEFLEX750 M1 PO (12:58)
[2017-03-25] MEDS ORDERED: MEDROL 4MG. DOSE4 MG PO (12:58)
[2017-03-25 13:28] LABS: URINE BILIRUBIN - DIPSTICK NEGATIVE (NEG); URINE BLOOD NEGATIVE (NEG)
[2017-03-25 13:34] VITALS: BP 127/72
[2017-03-25 13:50] LABS: URINE SQUAMOUS CELLS OCC #/hpf (0-5)
--- NOTE | 2017-03-25 15:18 | RADIOLOGY REPORT PS360 ---
CHEST(2 VIEWS-NOT PORTABLE) HISTORY: COPD ORDERING PHYSICIAN: Rosette Beckman MD PATIENT AGE: 66 years COMPARISON: 03/12/2017 FINDINGS: Unremarkable cardiovascular structures. Chronic changes are once again noted in the left suprahilar region. No lobar consolidation or collapse. Degenerative change thoracic spine with mild kyphosis. IMPRESSION: COPD, no change with no acute finding. No change in the chronic volume loss in the left perihilar region. CT may be of further value to exclude a postobstructive process for this area of chronic volume loss
== END 2017-03-25 13:43 | disposition home or self-care (01) ==
LOC: ER 11:18
PROVIDERS: Emergency Medicine
DX: J44.1 Chronic obstructive pulmonary disease with (acute) exacerbation (principal); Z79.899 Other long term (current) drug therapy; I10 Essential (primary) hypertension; E11.9 Type 2 diabetes mellitus without complications; Z85.118 Personal history of other malignant neoplasm of bronchus and lung

== ENCOUNTER 2017-03-27 19:06 | Emergency (ER) | payer MEDICARE, MEDICAID ==
[~2017-03-27] VITALS: Ht 167.6 cm; Wt 67.1 kg
[~2017-03-27 19:06] MED LIST changes: +KEFLEX750 M1 PO
[2017-03-27 19:57] LABS: HEMOGLOBIN 12.3 g/dL (12.2-16.2)
[2017-03-27 20:18] LABS: BUN 24 mg/dL (7-18)
--- NOTE | 2017-03-27 20:18 | Emergency Room Report ---
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 N Clinical Suspician of Infection? Y Mental Status: 1 - Regular (Normal Baseline) Sepsis Risk:Severe Sepsis Risk Have you (or family members/close friends) recently traveled outside the [place]? N If Yes, where/when: Have you had exposure to infectious disease within the past month? N TB? Other? Specify: Source patient, RN notes reviewed, family, old records Exam Limitations no limitations Comment pt with known copd but sec to homeless unable to have o2 - presented in ed tonight with inc sx Cardiac Chest Pain Chest pain indicative of cardiac No Timing/Duration this evening Severity moderate ALLERGIES Coded Allergies: No Known Allergies (03/25/17) Home Medications Active Scripts Azithromycin (Zithromax) 250 MG PO DAILY #6 TAB Prov: 03/13/17 Prednisone (Prednisone 20MG) 20 MG PO BID #10 TAB Prov: 03/13/17 Cephalexin (Keflex) 750 MG PO QID #40 CAP Prov: 03/25/17 Methylprednisolone (Medrol Dose Paul) 4 MG PO UD #1 PAUL Prov: 03/25/17 Albuterol/Ipratropiu (Duoneb) 3 ML IH Q4HP #30 VIAL Prov: 04/30/11 Tiotropium [place] (Spiriva) 18 MCG IH DAILY #30 CAP Ref 3 Prov: 06/29/16 Reported Medications Linagliptin (Tradjenta) 5 MG PO DAILY #90 Furosemide (Furosemide) 20 MG PO DAILY DULOXETINE HCL (Cymbalta 60MG) 60 MG PO DAILY Losartan Potassium (Losartan 50MG) 50 MG PO DAILY #90 TAB Sertraline Hydrochloride (Sertraline 100MG) 100 MG PO DAILY Roflumilast (Daliresp) 500 MCG PO DAILY Pantoprazole Sodium (Protonix 40MG TAB) 40 MG PO BID MOMETASONE/FORMOTEROL (Dulera 200 Mcg/5 Mcg Inhaler) 2 PUFFS IH BID #13 BUDESONIDE/FORMOTEROL FUMARATE (Symbicort 160-4.5 Mcg Inhaler) 1 PUFF IH BID #10 Olanzapine (Olanzapine 5MG Tab) 5 MG PO QHS Dexamethasone 4 MG FT DAILY #3 Amitriptyline Hcl (Amitriptyline) 50 MG PO QHS History Medical History General CAD? No Angina: No [place]: No Hypertension? Yes Hyperlipidemia? No CHF? No DVT? No PE? No COPD? Yes Asthma? Yes Anemia? No GERD? No Gastric ulcers? Yes GI Bleed? No Hernia? No Thyroid Problems? No Hypothyroidism? No CVA? No Seizures? No Diabetes? Yes Insulin Dependent: No Insulin Pump: No Home FSBS? No Renal Insuffiency? No End Stage Renal Disease? No UTI? No Stones? No GB Disease: No Nephritic Syndrome? No Asplenia? No Hepatitis? No Sickle Cell Disease? No Arthritis? Yes Migraines? No Cataracts? No Glaucoma? No MRSA? No HIV? 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 No Depression? No Cancer? Yes Site: lung More? 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 Respiratory denies cough, shortness of breath, wheezing Cardiovascular denies chest pain, denies syncope Gastrointestinal denies abdominal pain, denies diarrhea, denies vomiting Genitourinary denies: dysuria, frequency, hesitancy, hematuria. Musculoskeletal denies back pain, denies joint pain, denies joint swelling, denies neck pain Skin denies rash Psychiatric/Neurological denies headache, denies seizure Physical Exam Vital Signs Vital Signs Date Time Temp Pulse Resp B/P Pulse O2 O2 Flow FiO2 Ox Delivery Rate 03/28 0010 86 20 141/68 96 2 03/27 2313 89 20 154/86 96 2 08/26 1959 96 03/27 1956 104 24 149/89 96 2 03/27 1916 98.4 111 24 139/102 90 - WBC >12,000 or <4,000 or 10% bands? 2 or more SIRS Criteria Met? B/P:141/68 MAP:114 Creatinine >2.0? UA output<0.5ml/kg/hr for 2 hrs? Platelet count >100,000? Lactate >2.0mmol/1? INR >1.2 or PTT > than 60 sec? Evidence of Organ Dysfunction? Provider documented clinical suspician of infection? Y Sepsis Criteria Count: 2 Sepsis Risk: Severe Sepsis Risk General Appearance no apparent distress Eye Exam - bilateral eye PERRL, bilateral eye EOMI Ear, Nose, Throat normal ENT inspection Neck supple Respiratory Status No: respiratory distress. Lung Sounds bilateral: rhonchi. 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 No Results/Orders Laboratory Tests 03/27/171944: B-Natriuretic Peptide 12 03/27/171944: Sodium 145, Potassium 3.9, Chloride 103, Carbon Dioxide 39 H, BUN 24 H, Creatinine 1.0, Estimated Creat Clear 57, Estimated GFR (MDRD) 55 L, Glucose 123 H, Calcium 9.1, Total Bilirubin 0.3, AST 15, ALT 21, Alkaline Phosphatase 72, Creatine Kinase 53, CK-MB (CK-2) Rel Index 2.1, CK and CKMB Interp 1.1, Troponin I < 0.02, Total Protein 7.0, Albumin 3.5, Globulin 3.5 H, Albumin/ Globulin Ratio 1.0 L, WBC 11.3 H, RBC 4.47, Hgb 12.3, Hct 38.1, MCV 85.3, RDW 15.9, Plt Count 216, MPV 7.7, Gran % 84.8 H, Gran # 9.6 H, Lymphocytes % 9.0 L, Monocytes % 5.1, Eosinophils % 0.8, Basophils % 0.4, Lymphocytes # 1.0, Monocytes # 0.6, Eosinophils # 0.1, Basophils # 0.0, PUBS MCHC 32.2, MCH 27.4 Current Medication Orders Sig/Lucrecia Start time Last Medication Dose Route Stop Time Status Admin Furosemide 40 MG ONCE ONE 03/27 2200 DC 03/27 IV 03/27 Methylprednisolone 125 MG ONCE ONE 03/27 2200 DC 03/27 Sodium Succinate IV 03/27 Furosemide 0 .STK-MED ONE 03/27 2156 DC .ROUTE Methylprednisolone 0 .STK-MED ONE 03/27 2156 DC Sodium Succinate .ROUTE Levalbuterol HCl 0 .STK-MED ONE 03/27 1948 DC INH Aspirin 324 MG ONCE ONE 03/27 1945 DC 03/27 PO 03/27 Levalbuterol HCl 1.25 MG ONCE ONE 03/27 1945 DC 03/27 INH 03/27 Aspirin 0 .STK-MED ONE 03/27 1936 DC .ROUTE Sodium Chloride 10 ML PRN PRN 03/27 1930 AC IV 03/28 1928 Orders Procedure Date/time Status BRAIN NATRIURETIC PEPTIDE 03/27 2148 Complete RT REQUEST XOPENEX NEB 03/27 1938 Active ELECTROCARDIOGRAM REQUEST 03/27 1929 Active CHEST-PORTABLE 03/27 1929 Active IV SALINE LOCK 03/27 1929 Active OXYGEN PER NURSE 03/27 1929 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 ST/Twave chgs XRAY/CT/US XRAY/CT/US XRAY chest XR interpretation by reviewed by me Xray Results abnormal (copd) Departure Departure Time of Disposition 24 Disposition DC Home or Self Care(routine) Clinical Impression Primary Impression: COPD exacerbation Condition STABLE Patient Instructions DI for Chronic Obstructive Pulmonary Disease Additional Instructions call pcp wednesday for follow up Discharge Counseling Counseled pt/family regarding diagnosis, test results, follow up needs ED Critical Care Critical Care No at 0026
[2017-03-27 20:29] LABS: GFR (ESTIMATED) 55 ML/MIN (59-)
[2017-03-28 00:53] VITALS: BP 142/73
--- NOTE | 2017-03-28 06:36 | RADIOLOGY REPORT PS360 ---
CHEST-PORTABLE HISTORY: CHEST TIGHTNESS, PRODUCTIVE COUGH ORDERING PHYSICIAN: Hany Allen MD PATIENT AGE: 66 years COMPARISON: 03/25/2017 FINDINGS: Moderate patient rotation. There is COPD with chronic change with chronic changes in the left perihilar area as before. No lobar consolidation or collapse. Normal heart size. IMPRESSION: COPD with chronic changes, no acute finding
== END 2017-03-28 00:54 | disposition home or self-care (01) ==
LOC: ER 19:06
PROVIDERS: Emergency Medicine
DX: J44.1 Chronic obstructive pulmonary disease with (acute) exacerbation (principal); R06.02 Shortness of breath; Z79.899 Other long term (current) drug therapy; I10 Essential (primary) hypertension; E11.9 Type 2 diabetes mellitus without complications; Z85.118 Personal history of other malignant neoplasm of bronchus and lung

== ENCOUNTER → 2017-05-14 | Outpatient (CLI) | payer MEDICARE, MEDICAID ==
[~2017-05-14] MED LIST changes: +PREDNISONE20 MG PO
== END ==
LOC: RT 13:12
DX: I10 Essential (primary) hypertension (principal); I25.10 Atherosclerotic heart disease of native coronary artery without angina pectoris; E11.9 Type 2 diabetes mellitus without complications; J44.9 Chronic obstructive pulmonary disease, unspecified

== ENCOUNTER 2017-06-05 21:18 | Inpatient (IN) | payer OTHER, MEDICAID, MEDICARE ==
[~2017-06-05] VITALS: Ht 167.6 cm; Wt 88.5 kg
[2017-06-05 21:26] VITALS: BP 224/113
--- OUTSIDE RECORDS SUMMARY | 2017-06-05 21:45 | External Medical Summary Rpt | CCD ---
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 Hyperlipide [facility] 305.1 Tobacco [place] user [facility] [id number] Depression [facility] [id number] Obesity [facility] 496 Chronic [place] obstructive [facility] disease 512.8 Pneumothora [facility] 780.96 Chronic [place] pain [facility] 786.6 Lung mass [facility] [id number] [facility] V12.59 History of [facility] n Allergies, Adverse Reactions, Alerts Type Drug Allergy Adverse Reaction to Substance Substance Reaction Severity No Known Allergies - Unknown Mild Nka Medications Na ND Rx Da Fi Fi Am Da Di Ph RX Ph St me C No te ll ll ou ys ag ar # ys at rm s nt no ma ic us Or Da si cy ia de te s n re d AP 00 02 0 No AP 40 -0 -H 60 7- Lo YD 36 20 ng RO 66 13 er CO 2 DO Ac NE ti ve 32 5M G- 7. 5M G AM 51 02 0 No LO 07 -0 DI 90 7- Lo PI 45 20 ng NE 12 13 er 0 BE Ac SY ti LA ve TE 5 MG TA B ME 00 02 0 No ED 05 -0 NI 40 7- Lo SO 01 20 ng NE 82 13 er 0 20 Ac ti MG ve TA BL ET Po 00 02 1 No ta 24 -0 ss 50 6- Lo iu 05 20 ng m 80 13 er Ch 1 lo Ac ri ti de ve 20 ME Q Ta bl e TE 51 02 1 No MA 07 [...] S ve IN JE CT IO N AP 00 02 0 No AP 40 -0 -H 60 6- Lo YD 36 20 ng RO 66 13 er CO 2 DO Ac NE ti ve 32 5M G- 7. 5M G LO 00 02 1 No VE 07 [...] 10 ve 0 MG TA BL ET AP 00 02 1 No AP 40 -0 -H 60 6- Lo YD 36 20 ng RO 66 13 er CO 2 DO Ac NE ti ve 32 5M G- 7. 5M G IP 00 02 1 No RA 48 [...] ti 0 ve MG TA BL ET Th 00 02 1 No eo 90 -0 ph 41 6- Lo yl 61 20 ng li 26 13 er ne 1 Ac Cr ti ve 30 0M G Ta bl et Ga 68 02 1 No ba 08 [...] DE ti ve 0. 9% SO LN AM 51 01 2 No LO 07 -3 DI 90 0- Lo PI 45 20 ng NE 12 13 er 0 BE Ac SY ti LA ve TE 5 MG TA B RA 63 01 0 No D- 80 -3 SA 70 0- Lo LI 10 20 ng NE 07 13 er 5A FL Ac US ti H ve 10 ML SY RI NG E AZ 00 01 0 No IT 40 [...] IN ve FU S KATY TT LE MA 00 01 2 No PA 90 -3 P 41 0- Lo 32 98 20 ng 5 26 13 er MG 1 Ac TA ti BL ve ET IP 00 01 2 No RA 48 -3 T- 70 0- Lo AL 20 20 ng BU 10 13 er T 1 0. Ac 5- ti 3( ve 2. 5) MG /3 ML AP 00 01 2 No AP 40 -3 -H 60 0- Lo YD 36 20 ng RO 66 13 er CO 2 DO Ac NE ti ve 32 5M G- 7. 5M G Th 00 01 2 No eo 90 -3 ph 41 0- Lo yl 61 20 ng li 26 13 er ne 1 Ac Cr ti ve 30 0M G Ta bl et SE 59 01 2 No RT 76 -3 RA 24 0- Lo LI 91 20 ng NE 00 13 er 3 HC Ac L ti 10 ve 0 MG TA BL ET Po 00 01 2 No ta 24 -3 ss 50 0- Lo iu 05 20 ng m 80 13 er Ch 1 lo Ac ri ti de ve 20 ME Q Ta bl e LO 00 01 1 No VE 07 -3 NO 50 0- Lo X 62 20 ng 40 04 13 er 1 MG Ac /0 ti .4 ve ML SY RI NG E Vital Signs 09-08-2012 15:15 Name Value Interpretat [...] Order Detail nces retati t Range on Differential panel, method unspecified - (06-03-2017 13:05) Blood = 100 complet total 017 #CELLS ed cell 13:05 count Neutrop = 87 % 42-76 complet hil 017 ed count 13:05 Platele NORMAL complet t 017 NORMAL ed estimat 13:05 L e Monocyt = 3 % 2-9 complet e % 017 ed 13:05 LYMPH 5 % 10-50 complet 017 ed 13:05 Automat = 5 % 0-8 complet ed 017 ed blood 13:05 band neutrop hil percent a CBC w auto diff (06-03-2017 13:05) Automat = 0.1 0.0-0.4 complet ed 017 K/mm3 ed blood 13:05 eosinop hil count Blood = 14.6 4.8-10. complet leukocy 017 K/MM3 8 ed armen 13:05 count (number /volume ) Automat = 15.6 11.5-17 complet ed 017 % .5 ed erythro 13:05 cyte distrib ution width Red = 4.49 4.2-5.4 complet blood 017 M/mm3 ed cell 13:05 count Blood = 149 142-424 complet platele 017 K/mm3 ed t count 13:05 Automat = 8.2 7.4-10. complet ed 017 fl 4 ed blood 13:05 platele t mean volume farhan [place] % = 3.2 % 1.7-9.3 complet 017 ed 13:05 Absolut = 0.5 0.1-1.0 complet e 017 K/mm3 ed monocyt 13:05 e count Automat = 86.8 82.2-97 complet ed 017 fl .8 ed erythro 13:05 cyte mean corpusc ular v Automat = 31.5 31.8-35 complet ed 017 g/dl .4 ed erythro 13:05 cyte mean corpusc ular h Mean = 27.3 27-31.2 complet corpusc 017 pg ed ular 13:05 hemoglo bin (MCH) determ Lymphoc = 3.8 % 10-50.0 complet yte 017 ed count, 13:05 blood, automat ed Absolut = 0.6 0.7-4.5 complet e 017 K/mm3 ed lymphoc 13:05 yte count Blood = 12.3 12.2-16 complet hemoglo 017 g/dL .2 ed bin 13:05 measure ment (mass/v olum Blood = 39.0 37.0-47 complet hematoc 017 % .0 ed rit 13:05 (volume fractio n) Granulo = 92.1 37.0-80 complet cyte 017 % .0 ed percent 13:05 age Blood = 13.5 1.8-7.8 complet granulo 017 K/mm3 ed cytes 13:05 automat ed count (numb Automat = 0.8 % 0.1-12. complet ed 017 0 ed blood 13:05 eosinop hils/10 0 leukocy t Baso % = 0.2 % 0.1-2.0 complet 017 ed 13:05 Automat = 0.0 0-0.2 complet ed 017 K/MM3 ed blood 13:05 basophi l count (count/ vo D-dimer (06-03-2017 13:05) D-dimer = 975 0-400 complet 017 ng/mL ed 13:05 Comment: NOTIFICATION RESULT Comment: The D-Dimer values are presented in units of mass(ng/mL) of Comment: D-Dimer units(DDU). Comment: Comment: This test has been FDA approved as an aid in the assessment Comment: and evaluation of suspected DIC, and thromboembolic events Comment: including PE and DVT. However, it does not have approval Comment: for cut-off values for the exclusion of these conditions. Blood lactic acid measurement (moles/vol (06-03-2017 13:05) Blood = 1.6 0.4-2.0 complet lactic 017 mmol/L ed acid 13:05 measure ment (moles/ vol Comprehensive metabolic panel (06-03-2017 13:05) Protein = 7.2 6.4-8.2 complet total 017 gm/dL ed ser/blaise 13:05 s ALT = 28 12-78 complet (SGPT) 017 U/L ed ser/blaise 13:05 s Serum = 16 15-37 complet or 017 U/L ed plasma 13:05 asparta te aminotr ansfera Serum = 137 136-145 complet sodium 017 mmoL/L ed measure 13:05 ment Serum = 4.2 3.5-5.1 complet potassi 017 mmoL/L ed um 13:05 measure ment Serum = 170 74-106 complet or 017 mg/dL ed plasma 13:05 glucose measure ment (mas Serum = 3.7 1.3-3.2 complet globuli 017 gm/dL ed n 13:05 measure ment (mass/v olume) Estimat = 83 59- complet ed 017 ML/MIN ed glomeru 13:05 lar filtrat ion rate (GF Comment: REFERENCE RANGE: >60 ML/MIN/1.73 SQUARE METERS Comment: If this patient is -French, then multiply the Comment: result by 1.210. Estimat = 83 50-200 complet ion of 017 ML/MIN ed creatin 13:05 ine renal clearan ce Serum = 0.7 0.55-1. complet or 017 mg/dL 02 ed plasma 13:05 creatin ine measure ment ( Carbon = 39 21.0-32 complet dioxide 017 mmoL/L .0 ed 13:05 measure ment Serum = 95 98-107 complet or 017 mmoL/L ed plasma 13:05 chlorid e measure ment (mo Serum = 9.4 8.5-10. complet or 017 mg/dL 1 ed plasma 13:05 calcium measure ment (mas Serum = 12 7-18 complet or 017 mg/dL ed plasma 13:05 urea nitroge n measure men Serum = 0.7 0.2-1.0 complet or 017 mg/dL ed plasma 13:05 total bilirub in measure m Serum = 84 46-116 complet or 017 U/L ed plasma 13:05 alkalin e phospha tase farhan Serum = 3.5 3.4-5.0 complet or 017 gm/dL ed plasma 13:05 albumin measure ment (mas Serum = 0.9 1.1-1.8 complet or 017 ed plasma 13:05 albumin /globul in mass ra Cardiac enzymes (06-03-2017 13:05) Serum < 0.02 0.00-0. complet or 017 ng/mL 06 ed plasma 13:05 troponi n i.cardi ac measu Serum = 66 26-192 complet or 017 U/L ed plasma 13:05 creatin e kinase measure m Serum = 1.5 0.0-3.6 complet or 017 ng/mL ed plasma 13:05 creatin e kinase MB measu Serum = 2.3 0-4.0 complet or 017 U/L ed plasma 13:05 creatin e kinase MB (CK-M BASIC METABOLIC PANEL (09-08-2012 06:45) Glucose 107 [...] 013 mmoL/L ed SerPl-s 06:45 Cnc CO2 07-2 33 21.0-32 complet SerPl-s 013 mmoL/L .0 ed Cnc 06:45 Calcium 2 9.0 8.5-10. complet 013 mg/dL 1 ed SerPl-m 06:45 Cnc CBC with AUTO DIFF (09-08-2012 06:45) WBC # 02-07-2 7.3 4.8-10. complet Bld 013 K/MM3 8 ed Auto 06:45 RBC # 07-2 4.11 4.2-5.4 complet Bld 013 M/mm3 ed Auto 06:45 Hgb 07-2 11.7 12.2-16 complet Bld-mCn 013 g/dL .2 ed c 06:45 Hct Fr 34.9 % 37.0-47 complet Bld 013 .0 ed 06:45 MCV RBC 2 85.0 fl 82.2-97 complet 013 .8 ed 06:45 MCH RBC 28.4 pg 27-31.2 complet Qn 013 ed Auto 06:45 MEAN 33.4 31.8-35 complet CORPUSC 013 g/dl .4 ed ULAR 06:45 HGB CONC RDW RBC 09-08-2 13.8 % 11.5-17 complet Auto 013 .5 ed 06:45 Platele 158 142-424 complet t Bld 013 K/mm3 ed Ql 06:45 Manual MEAN 8.4 fl 7.4-10. complet PLATELE 013 4 ed T 06:45 VOLUME Granulo 2 69.2 % 37.0-80 complet cytes 013 .0 ed Fr Bld 06:45 Auto LYMPH % 07-2 21.6 % 10-50.0 complet 013 ed 06:45 Monocyt 09-08-2 5.0 % 1.7-9.3 complet es Fr 013 ed Bld 06:45 Auto Eosinop 09-08-2 4.0 % 0.1-12. complet hil Fr 013 [...] 013 K/mm3 ed Bld 06:45 Auto Eosinop 02-07-2 0.3 0.0-0.4 complet hil # 013 K/mm3 ed Bld 06:45 Auto Basophi 02-07-2 0.0 0-0.2 complet ls # 013 K/MM3 [...] ed ULAR 06:38 HGB CONC RDW RBC 14.0 % 11.5-17 complet Auto 013 .5 ed 06:38 Platele 09-01-2 216 142-424 complet t Bld 013 K/mm3 ed Ql 06:38 Manual MEAN 09-01-2 8.4 fl 7.4-10. complet PLATELE 013 4 ed T 06:38 VOLUME Granulo 86.2 % 37.0-80 complet cytes 013 .0 ed Fr Bld 06:38 Auto LYMPH % 01-31-2 11.4 % 10-50.0 complet 013 ed 06:38 [...] D Dimer PPP (08-31-2012 11:30) D Dimer 08-31-2 Less 0-400 complet PPP 013 than ed 11:30 100 ng/mL CBC with AUTO DIFF (08-31-2012 11:30) WBC # 08-31-2 5.7 4.8-10. complet Bld 013 K/MM3 8 ed Auto 11:30 RBC # 08-31-2 4.32 4.2-5.4 complet Bld 013 M/mm3 ed Auto 11:30 Hgb 2 12.3 12.2-16 complet Bld-mCn 013 g/dL .2 [...] Fr 013 ed Bld 11:30 Auto Granulo 08-31-2 3.5 1.8-7.8 complet cytes # 013 K/mm3 ed Bld 11:30 Auto Lymphoc 08-31-2 1.4 0.7-4.5 complet ytes Fr 013 K/mm3 [...] Procedures Procedure DOS Code Location Performer Comment CLOSED 33.26 Ramez [PERCUTAN Latonia EOUS] [NEEDLE] BIOPSY OF LUNG Encounters Encounter Start End Date Code Location Performer Type Date Inpatient LORI [place] ([place]) 3 09:16 3 15:22 [facility] Inpatient [place] 3 10:40 3 10:15 [facility]
--- OUTSIDE RECORDS SUMMARY | 2017-06-05 21:45 | External Medical Summary Rpt | CCD ---
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 Hyperlipide [facility] 305.1 Tobacco [place] user [facility] [id number] Depression [facility] [id number] Obesity [facility] 496 Chronic [place] obstructive [facility] disease 512.8 Pneumothora [facility] 780.96 Chronic [place] pain [facility] 786.6 Lung mass [facility] [id number] [facility] V12.59 History of [facility] n Allergies, Adverse Reactions, Alerts Type Drug [...] LA ve TE 5 MG TA B WA 00 02 0 No ED 05 -0 [...] blood 13:05 platele t mean volume farhan [place] % = 3.2 % 1.7-9.3 complet 017 [...] SQUARE METERS Comment: If this patient is -[place]oliv[place], then multiply the Comment: result by 1.210. [...] 63 59- complet (ESTIMA 013 ML/MIN ed ELSI) 11:30 Sodium 142 136-145 complet SerPl-s 013 [...] LORI ADAMS ([place]) 3 09:16 3 15:22 [facility] Inpatient [place]ORI [place]) 3 10:40 3 10:15 [facility]
--- OUTSIDE RECORDS SUMMARY | 2017-06-05 21:46 | External Medical Summary Rpt ---
Author Author RYAN Bedolla, RYAN Bedolla Organization [employer] Address Unknown Phone Unavailable
--- OUTSIDE RECORDS SUMMARY | 2017-06-05 21:46 | External Medical Summary Rpt | CCD ---
Author Author [employer] Organization [employer] Address Unknown Phone Unavailable Purpose Continuity of Care Document - through 2016
--- OUTSIDE RECORDS SUMMARY | 2017-06-05 21:46 | External Medical Summary Rpt | CCD ---
Demographics Preferred Language Kazakh Marital Status Unknown Alevism Affiliation Unknown Race Unknown Ethnic Group Unknown Author Author , RYAN DAVIS Address Unknown Phone Immunization Unable to retrieve immunization data due to connection failure with Immunization Registry. Please try again later.
--- OUTSIDE RECORDS SUMMARY | 2017-06-05 21:46 | External Medical Summary Rpt | CCD ---
Demographics Preferred Language Kazakh Marital Status Unknown Worship Affiliation Unknown Race Unknown Ethnic Group Unknown Author Author , RAYN DAVIS Address Unknown Phone Immunization Unable to retrieve immunization data due to connection failure with Immunization Registry. Please try again later.
[2017-06-05 21:48] LABS: HEMOGLOBIN 11.6 g/dL (12.2-16.2); LYMPH # 0.9 K/mm3 (0.7-4.5); LYMPH % 6.7 % (10-50.0)
[2017-06-05 22:06] LABS: NEUTROPHILS 79 % (42-76)
[2017-06-05 22:23] LABS: BUN 23 mg/dL (7-18); GFR (ESTIMATED) 62 ML/MIN (59-)
[2017-06-06] VITALS (9 sets, daily range): BP systolic 117–186; BP diastolic 66–91
--- NOTE | 2017-06-06 00:15 | Emergency Room Report ---
History of Present Illness Time Seen by Lennox Presenting Problem in Triage Pt arrived:Wheelchair Presenting Problem:PAIN IN LEFT SIDE OF CHEST, RADIATES TO SHOULDER AND SOA BEGAN YESTERDAY MORNING. 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 N Clinical Suspician of Infection? N Mental Status: 1 - Regular (Normal Baseline) Sepsis Risk:Possible Sepsis Risk Have you (or family members/close friends) recently traveled outside the [place]? N If Yes, where/when: Have you had exposure to infectious disease within the past month? N TB? Other? Specify: Source patient, RN notes reviewed, family, old records Exam Limitations no limitations Comment pt with hx of copd and lung cancer in past with inc sob and cough w/o hemoptysis - pt was seen in the ed a few days ago and placed on steroids - she started z paul today- pt with home o2 and has lt sided chest pain worse with insp Cardiac Chest Pain Chest pain indicative of cardiac No Timing/Duration this evening Severity moderate ALLERGIES Coded Allergies: No Known Allergies (03/25/17) Home Medications Active Scripts Azithromycin (Zithromax) 250 MG PO DAILY #6 TAB Prov: 03/13/17 Prednisone (Prednisone 20MG) 20 MG PO BID #10 TAB Prov: 03/13/17 Cephalexin (Keflex) 750 MG PO QID #40 CAP Prov: 03/25/17 Methylprednisolone (Medrol Dose Paul) 4 MG PO UD #1 PAUL Prov: 03/25/17 Prednisone (Prednisone 20MG Tab) 20 MG PO DAILY #7 TAB Prov: 06/03/17 Albuterol/Ipratropiu (Duoneb) 3 ML IH Q4HP #30 VIAL Prov: 04/30/11 Tiotropium [place] (Spiriva) 18 MCG IH DAILY #30 CAP Ref 3 Prov: 06/29/16 Reported Medications Linagliptin (Tradjenta) 5 MG PO DAILY #90 Furosemide (Furosemide) 20 MG PO DAILY DULOXETINE HCL (Cymbalta 60MG) 60 MG PO DAILY Losartan Potassium (Losartan 50MG) 50 MG PO DAILY #90 TAB Sertraline Hydrochloride (Sertraline 100MG) 100 MG PO DAILY Roflumilast (Daliresp) 500 MCG PO DAILY Pantoprazole Sodium (Protonix 40MG TAB) 40 MG PO BID MOMETASONE/FORMOTEROL (Dulera 200 Mcg/5 Mcg Inhaler) 2 PUFFS IH BID #13 BUDESONIDE/FORMOTEROL FUMARATE (Symbicort 160-4.5 Mcg Inhaler) 1 PUFF IH BID #10 Olanzapine (Olanzapine 5MG Tab) 5 MG PO QHS Dexamethasone 4 MG FT DAILY #3 Amitriptyline Hcl (Amitriptyline) 50 MG PO QHS History Medical History General CAD? No Angina: No MT: No Hypertension? Yes Hyperlipidemia? No CHF? No DVT? No PE? No COPD? Yes Asthma? Yes Anemia? No GERD? No Gastric ulcers? Yes GI Bleed? No Hernia? No Thyroid Problems? No Hypothyroidism? No CVA? No Seizures? No Diabetes? Yes Insulin Dependent: No Insulin Pump: No Home FSBS? No Renal Insuffiency? No End Stage Renal Disease? No UTI? No Stones? No GB Disease: No Nephritic Syndrome? No Asplenia? No Hepatitis? No Sickle Cell Disease? No Arthritis? Yes Migraines? No Cataracts? No Glaucoma? No MRSA? No HIV? 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 Yes Depression? Yes Cancer? Yes Site: lung More? 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 Immunization Hx Ped.Immunizations UTD No DT/Tetanus Unknown Flu REFUSES Pneumonia Received In Past Surgical Hx Previous Surgery?Y Hysterect GALL BLADDER Family History Family Hx Diabetes Yes CAD Yes Hypertension Yes Hyperlipidemia Yes Cancer Yes TB No Social History Smoking Hx Smoker: Former Smoker Tobacco: No Type Cigarettes Packs/day 2 1/2 - 3 Packs Are you/the child exposed to second-hand smoke: Yes Alcohol Alcohol: No Drugs none Review of Systems All Other Systems Reviewed and Negative Constitutional denies fever Eyes denies drainage ENT denies: ear discharge, epistaxis, throat pain. Respiratory see HPI, cough, shortness of breath, wheezing Cardiovascular see HPI, chest pain, denies palpitations, denies syncope Gastrointestinal denies abdominal pain, denies diarrhea, denies vomiting Genitourinary denies: dysuria, frequency, hesitancy, hematuria. Musculoskeletal denies back pain, denies joint pain, denies joint swelling, denies neck pain Skin denies rash Psychiatric/Neurological denies headache, denies seizure Physical Exam Vital Signs Vital Signs Date Time Temp Pulse Resp B/P Pulse O2 O2 Flow FiO2 Ox Delivery Rate 06/06 0055 99 20 152/114 98 06/06 0032 20 06/06 0019 101 18 127/95 95 06/05 2314 107 18 156/83 95 06/05 2223 77 18 128/58 98 06/05 2126 98.8 112 32 224/113 95 3 - WBC >12,000 or <4,000 or 10% bands? 2 or more SIRS Criteria Met? B/P:157/85 MAP:150 Creatinine >2.0? UA output<0.5ml/kg/hr for 2 hrs? Platelet count >100,000? Lactate >2.0mmol/1? INR >1.2 or PTT > than 60 sec? Evidence of Organ Dysfunction? Provider documented clinical suspician of infection? N Sepsis Criteria Count: 2 Sepsis Risk: Possible Sepsis Risk General Appearance no apparent distress Eye Exam - bilateral eye PERRL, bilateral eye EOMI Ear, Nose, Throat normal ENT inspection Neck supple Respiratory Status No: respiratory distress. Lung Sounds bilateral: rhonchi, wheezing. 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 No Results/Orders Laboratory Tests 06/06/177: Troponin I < 0.02 06/05/172126: Sodium 143, Potassium 4.4, Chloride 104, Carbon Dioxide 34 H, BUN 23 H, Creatinine 0.9, Estimated Creat Clear 60, Estimated GFR (MDRD) 62, Glucose 215 H, Calcium 9.2, Total Bilirubin 0.1 L, AST 13 L, ALT 26, Alkaline Phosphatase 81, Creatine Kinase 71, CK-MB (CK-2) Rel Index 3.7, CK and CKMB Interp 2.6, Troponin I < 0.02, Total Protein 6.8, Albumin 3.1 L, Globulin 3.7 H, Albumin/ Globulin Ratio 0.8 L, WBC 12.8 H, RBC 4.20, Hgb 11.6 L, Hct 37.7, MCV 89.7, RDW 15.3, Plt Count 213, MPV 8.5, Gran % 87.3 H, Gran # 11.2 H, Total Counted 100, Lymphocytes % 6.7 L, Monocytes % 5.2, Eosinophils % 0.6, Basophils % 0.3, Neutrophils 79 H, Band Neutrophils 8, Lymphocytes (Manual) 10, Lymphocytes # 0.9, Monocytes (Manual) 3, Monocytes # 0.7, Eosinophils # 0.1, Basophils # 0.0, Platelet Estimate NORMAL, Hypochromasia 3+, Poikilocytosis SL., PUBS MCHC 30.7 L, MCH 27.6 Current Medication Orders Sig/Lucrecia Start time Last Medication Dose Route Stop Time Status Admin Ketorolac 30 MG ONCE ONE 06/06 30 DC 06/06 Tromethamine IV 06/06 Methylprednisolone 125 MG ONCE ONE 06/06 30 DC 06/06 Sodium Succinate IV 06/06 31 0031 Ketorolac 0 .STK-MED ONE 06/06 25 DC Tromethamine .ROUTE Methylprednisolone 0 .STK-MED ONE 06/06 25 DC Sodium Succinate .ROUTE Sodium Chloride 10 ML PRN PRN 06/05 2145 AC IV 06/06 2141 Orders Procedure Date/time Status Decision to admit 06/06 106 Active TROPONIN I 06/06 28 Complete ELECTROCARDIOGRAM REQUEST 06/05 2141 Active CHEST-PORTABLE 06/05 2141 Active IV SALINE LOCK 06/05 2141 Active CBC WITH AUTO DIFF 06/05 2141 Complete CARDIAC ENZYMES 06/05 2141 Complete CHEM 12 PROFILE 06/05 2141 Complete DIFFERENTIAL-WBC 06/05 2127 Complete 12 LEAD EKG-EMILY (INITIAL) 06/05 UNK Active 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 ST/Twave chgs XRAY/CT/US XRAY/CT/US XRAY chest XR interpretation by reviewed by me Xray Results abnormal (chronic changes ) Departure Departure Time of Disposition 010 Disposition Still a Patient Clinical Impression Primary Impression: COPD (chronic obstructive pulmonary disease) with acute bronchitis Condition STABLE Referrals Benny CARTER,Antione (Family) discussed with dr shereen SANDOVAL Critical Care Critical Care No at 0144
--- OUTSIDE RECORDS SUMMARY | 2017-06-06 01:13 | External Medical Summary Rpt | CCD ---
Author Author , RYAN DAVIS Address Unknown Phone [email or web address] Care Team Providers Care Supervisor Gelatin Plant Name Role Phone Ramez Lincoln, Unavailable Unavailable Allen Huynh Unavailable Unavailable Wojciech [facility], 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 [id number] Obesity [facility] 496 Chronic [place] obstructive [facility] lung [facility] disease 512.8 Pneumothora [facility] 780.96 Chronic [place] pain [facility] 786.6 Lung mass 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 5M G Po 00 02 1 No ta 24 [...] 5M G- 7. 5M G Th 00 02 1 No eo 90 -0 ph 41 6- Lo yl 61 20 ng li 26 13 er ne 1 Ac Cr ti ve 30 0M G Ta bl et AZ 59 02 1 No IT 76 -0 HR 23 6- Lo OM 06 20 ng YC 00 13 er IN 3 Ac 25 ti 0 ve MG TA BL ET IP 00 02 1 No RA 48 -0 T- 70 6- Lo AL 20 20 ng BU 10 13 er T 1 0. Ac 5- ti 3( ve 2. 5) MG /3 ML Ga 68 02 1 No ba 08 -0 pe 40 6- Lo nt 59 20 ng in 46 13 er 5 10 Ac 0M ti G ve Ca ps ul e VE 00 02 0 No NT 17 -0 OL 30 1- Lo IN 68 20 ng 22 13 er HF 4 A Ac 90 ti ve MC G IN HAY[place]OD LE R AZ 00 01 1 No IT 40 -3 HR 90 1- Lo OM 14 20 ng YC 41 13 er IN 1 Ac I. ti V. ve 50 0 MG AL SO 00 01 1 No DI 40 -3 UM 97 1- Lo 10 20 ng CH 10 13 er LO 2 RI Ac DE ti ve 0. 9% SO LN ON 00 01 1 No DA 64 -3 NS 16 1- Lo ET 08 20 ng RO 02 13 er N 5 HC Ac L ti 4 ve MG /2 ML AL So 00 01 0 No di 07 -3 um 47 0- Lo 10 20 ng Ch 12 13 er lo 3 ri Ac de ti ve 0. 9% 10 0M L Ad v AZ 00 01 0 No IT 40 [...] MG ve /M L AD DV AN PI 00 01 2 No PE 40 [...] 0. 9% 10 0M L Ad v IP 00 01 2 No RA 48 [...] ve 32 5M G- 7. 5M G Me 00 01 2 No th 00 [...] IN ve FU S KATY TT LE RA 63 01 0 No D- 80 -3 SA 70 0- Lo LI 10 20 ng NE 07 13 er 5A FL Ac US ti H ve 10 ML SY RI NG E MA 00 01 2 No PA 90 -3 P 41 0- Lo 32 98 20 ng 5 26 13 er MG 1 Ac TA ti BL ve ET AM 51 01 2 No LO 07 [...] .4 ve ML SY RI NG E Po 00 01 2 No ta 24 -3 ss 50 0- Lo iu 05 20 ng m 80 13 er Ch 1 lo Ac ri ti de ve 20 ME Q Ta bl e SE 59 01 2 No RT 76 [...] ve 30 0M G Ta bl et Vital Signs 09-08-2012 15:15 Name Value Interpretat [...] Order Detail nces retati t Range on Serum or plasma troponin i.cardiac measu (06-06-2017 00:47) Serum < 0.02 0.00-0. complet or 017 ng/mL 06 ed plasma 00:47 troponi n i.cardi ac measu Cardiac enzymes (06-05-2017 21:27) Serum = 3.7 0-4.0 complet or 017 U/L ed plasma 21:27 creatin e kinase MB (CK-M Serum = 2.6 0.0-3.6 complet or 017 ng/mL ed plasma 21:27 creatin e kinase MB measu Serum = 71 26-192 complet or 017 U/L ed plasma 21:27 creatin e kinase measure m Serum < 0.02 0.00-0. complet or 017 ng/mL 06 ed plasma 21:27 troponi n i.cardi ac measu Comprehensive metabolic panel (06-05-2017 21:27) Protein = 6.8 6.4-8.2 complet total 017 gm/dL ed ser/blaise 21:27 s ALT = 26 12-78 complet (SGPT) 017 U/L ed ser/blaise 21:27 s Serum = 13 15-37 complet or 017 U/L ed plasma 21:27 asparta te aminotr ansfera Serum = 143 136-145 complet sodium 017 mmoL/L ed measure 21:27 ment Serum = 4.4 3.5-5.1 complet potassi 017 mmoL/L ed um 21:27 measure ment Serum = 215 74-106 complet or 017 mg/dL ed plasma 21:27 glucose measure ment (mas Serum = 3.7 1.3-3.2 complet globuli 017 gm/dL ed n 21:27 measure ment (mass/v olume) Estimat = 62 59- complet ed 017 ML/MIN ed glomeru 21:27 lar filtrat ion rate (GF Comment: REFERENCE RANGE: >60 ML/MIN/1.73 SQUARE METERS Comment: If this patient is -Eth[place]ian, then multiply the Comment: result by 1.210. Estimat = 60 50-200 complet ion of 017 ML/MIN ed creatin 21:27 ine renal clearan ce Serum = 0.9 0.55-1. complet or 017 mg/dL 02 ed plasma 21:27 creatin ine measure ment ( Carbon = 34 21.0-32 complet dioxide 017 mmoL/L .0 ed 21:27 measure ment Serum = 104 98-107 complet or 017 mmoL/L ed plasma 21:27 chlorid e measure ment (mo Serum = 9.2 8.5-10. complet or 017 mg/dL 1 ed plasma 21:27 calcium measure ment (mas Serum = 23 7-18 complet or 017 mg/dL ed plasma 21:27 urea nitroge n measure men Serum = 0.1 0.2-1.0 complet or 017 mg/dL ed plasma 21:27 total bilirub in measure m Serum = 81 46-116 complet or 017 U/L ed plasma 21:27 alkalin e phospha tase farhan Serum = 3.1 3.4-5.0 complet or 017 gm/dL ed plasma 21:27 albumin measure ment (mas Serum = 0.8 1.1-1.8 complet or 017 ed plasma 21:27 albumin /globul in mass ra CBC w auto diff (06-05-2017 21:27) Blood = 11.2 1.8-7.8 complet granulo 017 K/mm3 ed cytes 21:27 automat ed count (numb Automat = 0.6 % 0.1-12. complet ed 017 0 ed blood 21:27 eosinop hils/10 0 leukocy t Automat = 0.1 0.0-0.4 complet ed 017 K/mm3 ed blood 21:27 eosinop hil count Baso % = 0.3 % 0.1-2.0 complet 017 ed 21:27 Automat = 0.0 0-0.2 complet ed 017 K/MM3 ed blood 21:27 basophi l count (count/ vo Blood = 12.8 4.8-10. complet leukocy 017 K/MM3 8 ed armen 21:27 count (number /volume ) Automat = 15.3 11.5-17 complet ed 017 % .5 ed erythro 21:27 cyte distrib ution width Red = 4.20 4.2-5.4 complet blood 017 M/mm3 ed cell 21:27 count Blood = 213 142-424 complet platele 017 K/mm3 ed t count 21: Automat = 8.5 7.4-10. complet ed 017 fl 4 ed blood 21:27 platele t mean volume farhan [place] % = 5.2 % 1.7-9.3 complet 017 ed 21:27 Absolut = 0.7 0.1-1.0 complet e 017 K/mm3 ed monocyt 21:27 e count Automat = 89.7 82.2-97 complet ed 017 fl .8 ed erythro 21:27 cyte mean corpusc ular v Automat = 30.7 31.8-35 complet ed 017 g/dl .4 ed erythro 21:27 cyte mean corpusc ular h Mean = 27.6 27-31.2 complet corpusc 017 pg ed ular 21:27 hemoglo bin (MCH) determ Lymphoc = 6.7 % 10-50.0 complet yte 017 ed count, 21:27 blood, automat ed Absolut = 0.9 0.7-4.5 complet e 017 K/mm3 ed lymphoc 21: yte count Blood = 11.6 12.2-16 complet hemoglo 017 g/dL .2 ed bin 21:27 measure ment (mass/v olum Blood = 37.7 37.0-47 complet hematoc 017 % .0 ed rit 21:27 (volume fractio n) Granulo = 87.3 37.0-80 complet cyte 017 % .0 ed percent 21:27 age Differential panel, method unspecified - (06-05-2017 21:27) Blood = 100 complet total 017 #CELLS ed cell 21:27 count Neutrop = 79 % 42-76 complet hil 017 ed count 21:27 Blood SL. SL. complet poikilo 017 L ed cytosis 21:27 detecti on by light Platele NORMAL complet t 017 NORMAL ed estimat 21:27 L e Monocyt = 3 % 2-9 complet e % 017 ed 21:27 LYMPH 10 % 10-50 complet 017 ed 21:27 Hypochr 3+ 3+ L complet omatic 017 ed red 21:27 blood cell detecti on Automat = 8 % 0-8 complet ed 017 ed blood 21:27 band neutrop hil percent a Cardiac enzymes (06-03-2017 13:05) Serum = 2.3 0-4.0 complet or 017 U/L ed plasma 13:05 creatin e kinase MB (CK-M Serum = 1.5 0.0-3.6 complet or 017 ng/mL ed plasma 13:05 creatin e kinase MB measu Serum = 66 26-192 complet or 017 U/L ed plasma 13:05 creatin e kinase measure m Serum < 0.02 0.00-0. complet or 017 ng/mL 06 ed plasma 13:05 troponi n i.cardi ac measu Comprehensive metabolic panel (06-03-2017 13:05) Serum = 0.9 1.1-1.8 complet or 017 ed plasma 13:05 albumin /globul in mass ra Serum = 3.5 3.4-5.0 complet or 017 gm/dL ed plasma 13:05 albumin measure ment (mas Serum = 84 46-116 complet or 017 U/L ed plasma 13:05 alkalin e phospha tase farhan Protein = 7.2 6.4-8.2 complet total 017 [...] SQUARE METERS Comment: If this patient is -[place]ian, then multiply the Comment: result by 1.210. [...] plasma 13:05 total bilirub in measure m D-dimer (06-03-2017 13:05) D-dimer = 975 0-400 [...] ed acid 13:05 measure ment (moles/ vol Differential panel, method unspecified - (06-03-2017 13:05) [...] blood 13:05 platele t mean volume farhan [place] % = 3.2 % 1.7-9.3 complet 017 [...] blood 13:05 basophi l count (count/ vo BASIC METABOLIC PANEL (09-08-2012 06:45) Glucose 107 74-106 complet 013 mg/dL ed Bld-mCn 06:45 c BUN 9 mg/dL 7-18 complet Bld-mCn 013 ed c 06:45 Creat 2 0.8 0.6-1.0 complet SerPl-m 013 mg/dL ed [...] with AUTO DIFF (09-08-2012 06:45) WBC # -07-2 7.3 4.8-10. complet Bld 013 K/MM3 8 ed Auto 06:45 RBC # 07-2 4.11 4.2-5.4 complet Bld 013 M/mm3 ed Auto 06:45 Hgb 09-08-2 11.7 12.2-16 complet Bld-mCn 013 g/dL .2 ed c 06:45 Hct Fr 34.9 % 37.0-47 complet Bld 013 .0 ed 06:45 MCV RBC 85.0 fl 82.2-97 complet 013 .8 ed 06:45 MCH RBC 28.4 pg 27-31.2 complet Qn 013 ed Auto 06:45 MEAN 33.4 31.8-35 complet CORPUSC 013 g/dl .4 ed ULAR 06:45 HGB CONC RDW RBC 09-08-2 13.8 % 11.5-17 complet Auto 013 .5 ed 06:45 Platele -07-2 158 142-424 complet t Bld 013 K/mm3 ed Ql 06:45 Manual MEAN 09-08-2 8.4 fl 7.4-10. complet PLATELE 013 4 ed T 06:45 VOLUME Granulo 07-2 69.2 % 37.0-80 complet cytes 013 .0 ed Fr Bld 06:45 Auto LYMPH % 07-2 21.6 % 10-50.0 complet 013 ed 06:45 Monocyt 07-2 5.0 % 1.7-9.3 complet es Fr 013 ed Bld 06:45 Auto Eosinop 07-2 4.0 % 0.1-12. complet hil Fr 013 0 ed Bld 06:45 Auto Basophi 07-2 0.2 % 0.1-2.0 complet ls Fr 013 ed Bld 06:45 Auto Granulo 07-2 5.0 1.8-7.8 complet cytes # 013 K/mm3 ed Bld 06:45 Auto Lymphoc 07-2 1.6 0.7-4.5 complet ytes Fr 013 K/mm3 ed Bld 06:45 Auto Monocyt 07-2 0.4 0.1-1.0 complet es # 013 K/mm3 ed Bld 06:45 Auto Eosinop 07-2 0.3 0.0-0.4 complet hil # 013 K/mm3 ed Bld 06:45 Auto Basophi 07-2 0.0 0-0.2 complet ls # 013 K/MM3 ed Bld 06:45 Auto CBC with AUTO DIFF (09-01-2012 06:38) WBC # 09-01- 4.9 4.8-10. complet Bld 013 K/MM3 8 [...] Fr 013 ed Bld 06:38 Auto Eosinop 31-2 0.2 % 0.1-12. complet hil Fr 013 [...] 013 K/mm3 ed Bld 06:38 Auto Eosinop 31-2 0.0 0.0-0.4 complet hil # 013 K/mm3 ed Bld 06:38 Auto Basophi -31-2 0.0 0-0.2 complet ls # 013 K/MM3 [...] Bld 013 M/mm3 ed Auto 11:30 Hgb 12.3 12.2-16 complet Bld-mCn 013 g/dL .2 [...] 013 K/mm3 ed Ql 11:30 Manual MEAN 08-31-2 8.2 fl 7.4-10. complet PLATELE 013 4 ed T 11:30 VOLUME Granulo 30-2 60.9 % 37.0-80 complet cytes 013 .0 ed Fr Bld 11:30 Auto LYMPH % 30-2 23.8 % 10-50.0 complet 013 ed 11:30 Monocyt 30-2 5.6 % 1.7-9.3 complet es Fr 013 ed Bld 11:30 Auto Eosinop 30-2 9.2 % 0.1-12. complet hil Fr 013 0 ed Bld 11:30 Auto Basophi 30-2 0.5 % 0.1-2.0 complet ls Fr 013 [...] LORI ADAMS ([place]) 3 09:16 3 15:22 [facility] Inpatient LORI Adams ([place]) 3 10:40 3 10:15 [facility]
--- OUTSIDE RECORDS SUMMARY | 2017-06-06 01:13 | External Medical Summary Rpt | CCD ---
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 [facility] [place] 272.4 Hyperlipide [facility] 305.1 Tobacco [place] user [facility] [id number] Depression [facility] [id number] Obesity [facility] 496 Chronic [place] obstructive [facility] lung [facility] disease 512.8 Pneumothora [facility] 780.96 Chronic [place] pain [facility] 786.6 Lung mass [facility] [id number] [facility] C34.12 Malignant neoplasm of upper lobe, left bronchus or lung E11.9 Type 2 diabetes mellitus without complicatio ns V12.59 History of [facility] n 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 [...] blood 21:27 platele t mean volume farhan [place] % = 5.2 % 1.7-9.3 complet 017 [...] SQUARE METERS Comment: If this patient is -[place], then multiply the Comment: result by 1.210. [...] blood 13:05 platele t mean volume farhan [place] % = 3.2 % 1.7-9.3 complet 017 [...] LORI ADAMS ([place]) 3 09:16 3 15:22 [facility] Inpatient LORI Adams ([place]) 3 10:40 3 10:15 [facility]
--- OUTSIDE RECORDS SUMMARY | 2017-06-06 01:15 | External Medical Summary Rpt | CCD ---
Demographics Preferred Language Lao Marital Status Unknown Taoist Affiliation Unknown Race Unknown Ethnic Group Unknown Author Author , RYAN DAVIS Address Unknown Phone Immunization Unable to retrieve immunization data due to connection failure with Immunization Registry. Please try again later.
--- OUTSIDE RECORDS SUMMARY | 2017-06-06 01:15 | External Medical Summary Rpt | CCD ---
Demographics Preferred Language Korean Marital Status Unknown Yazidi Affiliation Unknown Race Unknown Ethnic Group Unknown Author Author , RYAN DAVIS Address Unknown Phone Immunization Unable to retrieve immunization data due to connection failure with Immunization Registry. Please try again later.
[2017-06-06 02:39] LABS: CORONAVIRUS 229E NOT DETECTED (NOT DETECTE); CORONAVIRUS HKU 1 NOT DETECTED (NOT DETECTE); CORONAVIRUS NL63 NOT DETECTED (NOT DETECTE); CORONAVIRUS OC43 NOT DETECTED (NOT DETECTE); RHINOVIRUS/ENTEROVIRUS NOT DETECTED (NOT DETECTE)
--- NOTE | 2017-06-06 06:53 | HISTORY AND PHYSICAL REPORT ---
Demographics: Admit date: 06/06/17 Chief complaint: Shortness of breath PRIMARY DIAGNOSIS: COPD Allergies: Coded Allergies: No Known Allergies (03/25/17) History of present illness: History of present illness: 66-year-old female with medical history of very severe chronic obstructive pulmonary disease, prior small cell lung carcinoma , tuberculosis as a child presented to the emergency department for the second time in less than 72 hours with respiratory complaints. Patient had initially been to the emergency department on June 03 with complaint of chest discomfort that was pleuritic in nature. CT scan ruled out pulmonary embolism. Patient was discharged home with prednisone. Patient returned early this morning with complaints of increasing shortness of breath. Patient had been taking her prednisone and using her home inhalers and aerosols. In addition to this she is under the care of hospice and had been started on azithromycin on the day of presentation. She describes restricted breathing and chest heaviness with feeling like "I can't blow any air out". In the emergency department she had rhonchi on exam which was changed from previous exam. Patient has been admitted for chronic obstructive pulmonary disease exacerbation. Past medical history: Family HX Family Hx Insignificant No Diabetes Yes CAD Yes Hypertension Yes Hyperlipidemia Yes Cancer Yes TB No Immunization HX Ped.Immunizations UTD No DT/Tetanus Unknown Flu REFUSES Pneumonia Received In Past TB Test in last year No General CAD? No Angina: No AR: No Hypertension? Yes Hyperlipidemia? No CHF? No DVT? No PE? No COPD? Yes Asthma? Yes Anemia? No GERD? No Gastric ulcers? Yes GI Bleed? No Hernia? No Thyroid Problems? No Hypothyroidism? No CVA? No Seizures? No Diabetes? Yes Insulin Dependent: No Insulin Pump: No Home FSBS? No Renal Insuffiency? No UTI? No Stones? No GB Disease: No Nephritic Syndrome? No Asplenia? No Hepatitis? No Sickle Cell Disease? No Arthritis? Yes Migraines? No Cataracts? No Glaucoma? No MRSA? No HIV? 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 Yes Depression? Yes Cancer? Yes Site: lung More? 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 Past Surgical HX Previous Surgery?Y Hysterect GALL BLADDER Current home meds: Active Scripts Azithromycin (Zithromax) 250 MG PO DAILY #6 TAB Prov: 03/13/17 Prednisone (Prednisone 20MG) 20 MG PO BID #10 TAB Prov: 03/13/17 Methylprednisolone (Medrol Dose Yamil) 4 MG PO UD #1 YAMIL Prov: 03/25/17 Albuterol/Ipratropiu (Duoneb) 3 ML IH Q4HP #30 VIAL Prov: 04/30/11 Tiotropium [place] (Spiriva) 18 MCG IH DAILY #30 CAP Ref 3 Prov: 06/29/16 Reported Medications Linagliptin (Tradjenta) 5 MG PO DAILY #90 Furosemide (Furosemide) 20 MG PO DAILY DULOXETINE HCL (Cymbalta 60MG) 60 MG PO DAILY Losartan Potassium (Losartan 50MG) 50 MG PO DAILY #90 TAB Sertraline Hydrochloride (Sertraline 100MG) 100 MG PO DAILY Roflumilast (Daliresp) 500 MCG PO DAILY Pantoprazole Sodium (Protonix 40MG TAB) 40 MG PO BID MOMETASONE/FORMOTEROL (Dulera 200 Mcg/5 Mcg Inhaler) 2 PUFFS IH BID #13 BUDESONIDE/FORMOTEROL FUMARATE (Symbicort 160-4.5 Mcg Inhaler) 1 PUFF IH BID #10 Olanzapine (Olanzapine 5MG Tab) 5 MG PO QHS Dexamethasone 4 MG FT DAILY #3 Amitriptyline Hcl (Amitriptyline) 50 MG PO QHS Social Hx: Smoking HX Tobacco No Type Cigarettes Packs/day 2 1/2 - 3 PACKS Are you/the child exposed to second-hand smoke: Yes Alcohol Alcohol: No Hx of Drug Use Drug Use? No Review of systems: Constitutional weakness. No: chills, fever. Respiratory cough, shortness of breath, SOB with excertion, SOB at rest, wheezing. Cardiovascular no symptoms reported Gastrointestinal/Abdominal no symptoms reported Genitourinary no symptoms reported. Musculoskeletal no symptoms reported. Neurological Yes: no symptoms reported. Exam: Lab data for last 24 hours: Laboratory Tests 06/06/17 0620: POC Glucose 217 H 06/06/17 0230: Chlamy pneum (TEM-PCR) NOT DETECTED, Adenovirus (PCR) NOT DETECTED, B. pertussis DNA (PCR) NOT DETECTED, Coronavirus OC43 (PCR) NOT DETECTED, Coronavirus HKU1 ( PCR) NOT DETECTED, Coronavirus 229E (PCR) NOT DETECTED, Coronavirus NL63 (PCR) NOT DETECTED, Human Metapneumovir PCR NOT DETECTED, Influenza A (H1) PCR NOT DETECTED, Influ A (H1N1/09) PCR NOT DETECTED, Influenza A (H3) PCR NOT DETECTED, Influenza Type A (PCR) NOT DETECTED, Influenza Type B (PCR) NOT DETECTED, M. pneumoniae (PCR) NOT DETECTED, Parainfluenza 1 (PCR) NOT DETECTED, Parainfluenza 2 (PCR) NOT DETECTED, Parainfluenza 3 (PCR) NOT DETECTED, Parainfluenza 4 (PCR) NOT DETECTED, RSV (PCR) NOT DETECTED, Entero/Rhino (PCR) NOT DETECTED 06/06/1746: Troponin I < 0.02 06/05/172126: Sodium 143, Potassium 4.4, Chloride 104, Carbon Dioxide 34 H, BUN 23 H, Creatinine 0.9, Estimated Creat Clear 60, Estimated GFR (MDRD) 62, Glucose 215 H, Calcium 9.2, Total Bilirubin 0.1 L, AST 13 L, ALT 26, Alkaline Phosphatase 81, Creatine Kinase 71, CK-MB (CK-2) Rel Index 3.7, CK and CKMB Interp 2.6, Troponin I < 0.02, Total Protein 6.8, Albumin 3.1 L, Globulin 3.7 H, Albumin/ Globulin Ratio 0.8 L, WBC 12.8 H, RBC 4.20, Hgb 11.6 L, Hct 37.7, MCV 89.7, RDW 15.3, Plt Count 213, MPV 8.5, Gran % 87.3 H, Gran # 11.2 H, Total Counted 100, Lymphocytes % 6.7 L, Monocytes % 5.2, Eosinophils % 0.6, Basophils % 0.3, Neutrophils 79 H, Band Neutrophils 8, Lymphocytes (Manual) 10, Lymphocytes # 0.9, Monocytes (Manual) 3, Monocytes # 0.7, Eosinophils # 0.1, Basophils # 0.0, Platelet Estimate NORMAL, Hypochromasia 3+, Poikilocytosis SL., PUBS MCHC 30.7 L, MCH 27.6 Admission vital signs: 1ST Vital Signs Result Date Time Pulse Ox 95 06/05 2126 B/P 224/113 06/05 2126 O2 Flow Rate 3 06/05 2126 Temp 98.8 06/05 2126 Pulse 112 06/05 2126 Resp 32 06/05 2126 O2 Delivery OXYGEN 06/06 236 Vital Signs Date Time Temp Pulse Resp B/P Pulse O2 O2 Flow FiO2 Ox Delivery Rate 06/06 0645 2 06/06 627 2 06/06 0515 2 06/06 0432 2 06/06 0432 97.6 96 20 165/78 96 OXYGEN 2 06/06 0345 2 06/06 0337 2 06/06 0337 2 06/06 0236 95 06/06 0236 98.4 103 20 186/91 06/06 0236 94 OXYGEN 06/06 023 98.8 95 18 157/85 99 3 06/06 0134 95 18 157/85 99 3 06/06 0055 99 20 152/114 98 06/06 0032 20 06/06 0019 101 18 127/95 95 06/05 2314 107 18 156/83 95 Additional information: Patient is awake and alert. Nasal cannula is in place. No tachypnea is witness. She has bustos facies. Oropharynx is dry. Neck is without carotid bruits or jugular venous distention. Lung has distant and almost absent breath sounds in regards to inspiration. Patient has faint intermittent expiratory wheezes. No focal rales or rhonchi. Heart has a regular rate and rhythm. Abdomen is soft and nontender. Patient can move upper and lower extremities. Sensation is intact. Plan: Problem List 1. Chronic obstructive pulmonary disease with (acute) exacerbation 2. Hypertension 3. Diabetes Plan: Patient has been admitted for IV steroids, aerosols, IV azithromycin. I encouraged the patient to get out of bed and sit in the chair some today. Home medications have been ordered. at 0616
--- NOTE | 2017-06-06 08:13 | PHARMACY CLINIC NOTE ---
Patient Demographics Patient Demographics Admission date: 06/06/17 Date: 06/06/17 Time: 0812 Allergies Coded Allergies: No Known Allergies (03/25/17) HEIGHT- FT: 5 IN: 6.00 K.504 VTE General Information Labs: Laboratory Tests 06/05 2127 Hematology Hgb (12.2 - 16.2 g/dL) 11.6 L Hct (37.0 - 47.0 %) 37.7 Plt Count (142 - 424 K/mm3) 213 Disclaimer The following section includes nursing documentation that has been pulled in for pharmacy review. Patient's VTE score: 6 Patient's VTE Risk: MOD RISK Clinical trial participant? No VTE prophylaxis [facility] 0371 VTE prophylaxis ordered? Yes Type of prophylaxis/treatment: ELIS at 0812
--- NOTE | 2017-06-06 08:13 | PHARMACY CLINIC NOTE ---
Patient Demographics Patient Demographics Admission date: 06/06/17 Date: 06/06/17 Time: 0812 Allergies Coded Allergies: No Known Allergies (03/25/17) HEIGHT- FT: 5 IN: 6.00 K.504 VTE General Information Labs: Laboratory Tests 06/05 2127 Hematology Hgb (12.2 - 16.2 g/dL) 11.6 L Hct (37.0 - 47.0 %) 37.7 Plt Count (142 - 424 K/mm3) 213 Disclaimer The following section includes nursing documentation that has been pulled in for pharmacy review. Patient's VTE score: 6 Patient's VTE Risk: MOD RISK Clinical trial participant? No VTE prophylaxis [facility] 0371 VTE prophylaxis ordered? Yes Type of prophylaxis/treatment: ELIS at 0812
--- NOTE | 2017-06-06 09:24 | RADIOLOGY REPORT PS360 ---
CHEST-PORTABLE HISTORY: CHEST PAIN history of lung cancer left upper lobe Patient Age: 66 years: Female Ordering Physician: Antione Zapata MD TECHNIQUE: AP portable upright chest COMPARISON : 06-18 CXR 03/27/2017 CXR.There is a cta chest from 06-03-17 available FINDINGS Underlying COPD. Hyperexpansion. . No discrete acute infiltrate . Right lung Coarsening of markings towards the right lower lobe again seen and similar to previous studies. I tend to favor chronic fibrotic changes possibly some minimal atelectasis here but doubt additional additional active infiltrate on plain film..There is a cta chest from 06-03-17 available useful for comparison here as well Left lung. Dense. linear scarring is again seen towards the left suprahilar region L ul reflecting area of previous treated disease. This linear density appears stable since March pCXR studies but is very slightly more apparent versus September and September. Ongoing follow-up CT studies with a facility that provided oncology services and imaging for this patient may be worthwhile subsequent to this admission to verify stability here. At This is site of previous treated lung cancer. The left infrahilar region and medial left base appears similar and satisfactory. . History of coarsening of markings toward the righ and comparing today's chest film the previous chest films i suspect these are chronic changes Heart arik and mediastinal structures satisfactory. Chest wall unremarkable. quality assurance monitor leads in place IMPRESSION: Nothing definite acute. COPD Linear scarring at left suprahilar region/left upper lung... Overall of believe this area similar to previous CXR studies earlier this year but somewhat accentuated today CXR by the higher contrast digital portable technique we are now utilizing.. This is a site of previous treated lung cancer .
[2017-06-07] VITALS (8 sets, daily range): BP systolic 148–181; BP diastolic 72–98
[2017-06-07 07:07] LABS: LYMPH # 0.3 K/mm3 (0.7-4.5); LYMPH % 4.7 % (10-50.0)
[2017-06-07 07:39] LABS: HEMOGLOBIN 10.4 g/dL (12.2-16.2)
--- NOTE | 2017-06-07 08:00 | ACUTE CARE PROGRESS NOTE (QUA) ---
Progress Notes Subjective Date 06/07/17 Time 0757 Note Patient feels much better. Eating 100 percent of her food. No changes in general appearance. Lungs have rhonchi and some slight expiratory wheezing but overall better than her baseline lung exam. Heart rate regular, abdomen soft. ENT exam clear. Objective Findings Last VS-Temp:98.3 B/P:167/82 Pulse:111 Resp:20 SaO2:96 OXYGEN Last weight lbs:140 oz:0 K.504 Method:Stated Assessment/Plan Problem List 1. Chronic obstructive pulmonary disease with (acute) exacerbation 2. Hypertension 3. Diabetes 4. Bacteremia Patient condition Improving, positive blood cultures noted. Plan for PICC line placement today. Continue current ceftriaxone dose until cultures have returned. This inpt stay is expected to cross 2 MNs from start of care Yes at 0800
--- NOTE | 2017-06-07 10:05 | RADIOLOGY REPORT PS360 ---
CHEST PORTABLE-PICC PLACEMENT CLINICAL INDICATION: PICC LINE INSERTION ORDERING PHYSICIAN: Antione Zapata MD PATIENT AGE: 66 years COMPARISON: 06 05 17 FINDINGS: Left upper extremity PICC line has been inserted. The tip is positioned in the region of the superior vena cava. No change left upper lobe scarring. Old granulomatous disease. IMPRESSION: Good placement of left upper extremity PICC line
[2017-06-07 11:10] LABS: NEUTROPHILS 89 % (42-76)
[2017-06-08 03:51] VITALS: BP 190/95
[2017-06-08 04:35] VITALS: BP 136/69
--- NOTE | 2017-06-08 07:27 | DISCHARGE SUMMARY STANDARD ---
Demographics Admit date: 06/06/17 Discharge date: 06/08/17 History of present illness History of present illness 66-year-old female with medical history of very severe chronic obstructive pulmonary disease, prior small cell lung carcinoma , tuberculosis as a child presented to the emergency department for the second time in less than 72 hours with respiratory complaints. Patient had initially been to the emergency department on June 03 with complaint of chest discomfort that was pleuritic in nature. CT scan ruled out pulmonary embolism. Patient was discharged home with prednisone. Patient returned early this morning with complaints of increasing shortness of breath. Patient had been taking her prednisone and using her home inhalers and aerosols. In addition to this she is under the care of hospice and had been started on azithromycin on the day of presentation. She describes restricted breathing and chest heaviness with feeling like "I can't blow any air out". In the emergency department she had rhonchi on exam which was changed from previous exam. Patient has been admitted for chronic obstructive pulmonary disease exacerbation. Hospital Course Hospital Course: Patient was admitted, and placed on intravenous azithromycin and steroids. She responded fairly well from a respiratory component. Day after discharge blood cultures from an ER visit 2 days before admission return to show acid Enterobacter in her bloodstream. She was placed on IV ceftriaxone and a PICC line was placed in preparation for 2 weeks of antibiotics for the bacteremia. Patient clinically improved. Sensitivities are pending at the time of discharge. This morning patient looks improved, she's eating food vigorously, her lungs are clear, but continued rhonchi are noted. Heart rate regular. PICC line in the LEFT arm is in good position. No edema noted in her legs. No stigmata of conjunctival irritation. Plan will be to transfer to the [facility] today. She'll continue for 2 weeks her intravenous ceftriaxone 1 g daily, she'll finish up intravenous azithromycin 500 mg daily for another 5 days, and other medications are noted on her discharge summary. Please note she will remain on hospice care although she is a full CODE STATUS at this point. Discharge diagnoses Problem List 1. Chronic obstructive pulmonary disease with (acute) exacerbation 2. Hypertension 3. Diabetes 4. Bacteremia Medications Medications: Discharge meds are as noted. Follow up Follow up in office in: 4 DAYS with: Antione Zapata MD at [id number]
[2017-06-08] MEDS ORDERED: [UNRECOGNIZED DRUG - OTHER] IV (07:29)
[2017-06-08] MEDS ORDERED: [UNRECOGNIZED DRUG - OTHER] IV (07:29)
[2017-06-08] MEDS ORDERED: AZITHROMYCIN IV (07:29)
[2017-06-08 08:24] LABS: HEMOGLOBIN 10.2 g/dL (12.2-16.2); LYMPH # 0.4 K/mm3 (0.7-4.5)
[2017-06-08 08:30] VITALS: BP 190/96
[2017-06-08 11:25] VITALS: BP 190/96
[2017-06-08 11:44] LABS: NEUTROPHILS 93 % (42-76)
== END 2017-06-08 11:20 | disposition hospice, inpatient (51) | DRG 191 ==
LOC: ER 21:18 → 2ND 06-06 01:06
PROVIDERS: Emergency Medicine; Internal Medicine Adolescent Medicine
PROC: 05HC33Z Insertion of Infusion Device into Left Basilic Vein, Percutaneous Approach (ICD-10-PCS; principal; 2017-06-07)
DX: J44.1 Chronic obstructive pulmonary disease with (acute) exacerbation (principal); R78.81 Bacteremia; E11.9 Type 2 diabetes mellitus without complications; I10 Essential (primary) hypertension; Z86.11 Personal history of tuberculosis; Z85.118 Personal history of other malignant neoplasm of bronchus and lung; Z87.891 Personal history of nicotine dependence
CPT/HCPCS: C1751; J0456